=== PATIENT | male | born 1975 | race African-American/Black ===

== ENCOUNTER 2016-11-11 14:48 | Emergency (ER) | payer OTHER ==
[~2016-11-11] VITALS: Ht 175.3 cm; Wt 50.0 kg
[~2016-11-11 14:48] MED LIST: ASPI81 PO; CARV6.25 PO; DIGO0.25 PO; FURO1TAB93 PO; ISOS30 PO; MAGN400T PO; METO10TA PO; MIRTA15 PO; PROT40TA PO; QUET25 PO; RAMI5 PO; RIFA550 PO; RIVA20 PO
[2016-11-11 14:49] VITALS: BP 144/92; PULSE 69; RESP 20; TEMP 98.2; O2SAT 100
--- NOTE | 2016-11-11 19:49 | PD ---
HPI Chief Complaint: GI Complaint Time Seen by Provider: 19:49 Travel History International Travel<30 days: No Contact w/Intl Traveler<30days: No Traveled to known affect area: No History of Present Illness HPI 41-year-old male with a history of hypertension, hyperlipidemia, coronary artery disease, SVT presents to the emergency department for evaluation of nausea and vomiting for one day. Patient states he has had 7-8 episodes of nonbloody nonbilious emesis today since he woke up. States he has been unable to keep any fluids down due to vomiting. States that he is on one episode of nonbloody diarrhea. He states he has some soreness in his upper abdomen from vomiting but denies any abdominal pain. He denies fever, chills, chest pain, shortness of breath, cough or cold symptoms, constipation, dysuria. He denies any recent travel or sick contacts. Denies eating anything out of the ordinary. He admits to drinking 3 beers 4-5 times per week. Denies any drug use. Admits to smoking cigarettes. Denies any prior abdominal surgeries. No other complaints. PFSH Past Medical History Hx Anticoagulant Therapy: Yes Autoimmune Disease: No Blood Disorders: No Anxiety: Yes Depression: Yes Heart Rhythm Problems: Yes (SVT) Cancer: No Cardiac Catheterization: No Cardiovascular Problems: Yes (DE) High Cholesterol: No Chemotherapy: No Chest Pain: Yes Congestive Heart Failure: Yes Cerebrovascular Accident: No Diabetes: No Diminished Hearing: Yes Endocrine: No Gastrointestinal Disorders: Yes (ELEVATED LIVER ENZYMES) GERD: Yes Glaucoma: No Genitourinary: Yes (PHOEBE) Hepatitis: No Hiatal Hernia: No Hypertension: Yes Immune Disorder: No Implanted Vascular Access Dvce: No Musculoskeletal: Yes Neurologic: No Psychiatric: Yes (POLY SUBSTANCE ABUSE) Reproductive: No Respiratory: No Immunizations Current: No Myocardial Infarction: Yes (NSTEMI) Pneumonia: Yes Radiation Therapy: No Sickle Cell Disease: No Thyroid Disease: No Ulcer: Yes Past Surgical History Abdominal Surgery: Yes (EXPLORATORY LAP) AICD: No Appendectomy: No Arteriovenous Shunt: No Cholecystectomy: No Coronary Artery Bypass Graft: No Ear Surgery: No Endocrine Surgery: No Eye Surgery: No Gynecologic Surgery: No Hysterectomy: No Insulin Pump: No Joint Replacement: No Neurologic Surgery: No Oral Surgery: No Pacemaker: No Other Surgery: No Social History Alcohol Use: Yes (4 beers a day) Tobacco Use: Yes (0.5 PPD) Substance Use: Yes (cocaine abuse hx) Allergies-Medications (Allergen,Severity, Reaction): Coded Allergies: Iodine (Verified Allergy, Severe, 11/11/16) Seafood (Verified Allergy, Severe, 11/11/16) Reported Meds & Prescriptions Reported Meds & Active Scripts Active Reglan (Metoclopramide HCl) 10 Mg Tab 10 Mg PO Q8H PRN NAUSEA AND VOMITING Coreg 6.25 mg (Carvedilol) 6.25 Mg Tab 1 Tab PO BID 30 Days Xarelto 20 Mg Tab (Rivaroxaban) 20 Mg Tab 20 Mg PO DAILY 30 Days Xifaxan 550 Mg Tab (Rifaximin) 550 Mg Tab 550 Mg PO BID 30 Days Quetiapine Fumarate 25 mg (Quetiapine Fumarate) 25 Mg Tab 25 Mg PO HS 30 Days Mag-Ox 400 (Magnesium Oxide) 400 Mg Tab 400 Mg PO BID 30 Days Digoxin 0.25 mg (Digoxin) 0.25 Mg Tab 0.25 Mg PO DAILY 30 Days Furosemide 40 Mg Tab 40 Mg PO BID 30 Days Imdur 30 Mg (Isosorbide Mononitrate) 30 Mg Tabcr 30 Mg PO DAILY@07 30 Days Ramipril 5 Mg Cap 5 Mg PO DAILY Mirtazapine 15 Mg Tab 30 Mg PO HS Aspirin Low Strength (Aspirin) 81 Mg Chew 81 Mg PO DAILY Protonix (Pantoprazole Sodium) 40 Mg Tabdr 40 Mg PO DAILY Review of Systems Except as stated in HPI: all other systems reviewed are Neg Physical Exam Narrative GENERAL: Well-nourished and well-developed pleasant male patient in no acute distress. SKIN: Warm and dry. HEAD: Normocephalic and atraumatic. EYES: No injection, drainage, or hyphema noted. PERRLA. EOMI. ENT: No nasal drainage noted. Oropharynx is clear. NECK: Supple and the trachea is midline. CARDIOVASCULAR: Regular rate and rhythm. RESPIRATORY: Breath sounds are equal bilaterally with no accessory muscle use, wheezing, rhonchi, or crackles. GASTROINTESTINAL: Mild epigastric tenderness to palpation. Abdomen is soft and nondistended. Negative McBurney's point. Negative Montano's sign. No rebound tenderness or guarding. MUSCULOSKELETAL: No obvious deformities, swelling, cyanosis, or ecchymosis is present throughout the upper and lower extremities. Patient has full range of motion without any signs of neurovascular compromise. NEUROLOGICAL: Awake, alert, and oriented. Normal speech and gait. Cranial nerves are grossly intact. Data Data Last Documented VS Vital Signs Date Time Temp Pulse Resp B/P Pulse Ox O2 Delivery O2 Flow Rate FiO2 11/11/16 14:49 98.2 69 20 144/92 100 Room Air Orders Complete Blood Count With Diff (11/11/16 19:48) Comprehensive Metabolic Panel (11/11/16 19:48) Lipase (11/11/16 19:48) Ondansetron Odt (Zofran Odt) (11/11/16 20:00) Labs Laboratory Tests Test 11/11/16 20:10 White Blood Count 6.3 TH/MM3 Red Blood Count 4.42 MIL/MM3 Hemoglobin 13.2 GM/DL Hematocrit 38.7 % Mean Corpuscular Volume 87.5 FL Mean Corpuscular Hemoglobin 29.9 PG Mean Corpuscular Hemoglobin 34.2 % Concent Red Cell Distribution Width 12.4 % Platelet Count 183 TH/MM3 Mean Platelet Volume 8.8 FL Neutrophils (%) (Auto) 40.3 % Lymphocytes (%) (Auto) 48.5 % Monocytes (%) (Auto) 9.8 % Eosinophils (%) (Auto) 0.6 % Basophils (%) (Auto) 0.8 % Neutrophils # (Auto) 2.6 TH/MM3 Lymphocytes # (Auto) 3.1 TH/MM3 Monocytes # (Auto) 0.6 TH/MM3 Eosinophils # (Auto) 0.0 TH/MM3 Basophils # (Auto) 0.1 TH/MM3 CBC Comment DIFF FINAL Differential Comment MDM Medical Decision Making Medical Screen Exam Complete: Yes Emergency Medical Condition: Yes Differential Diagnosis Gastroenteritis versus gastritis versus PUD versus pancreatitis Narrative Course 41-year-old male presents to the emergency department for evaluation of nausea and vomiting for one day. Patient is afebrile, vital signs are stable. Abdominal examination is benign. Patient is administered Zofran 4 mg ODT. Initial laboratory and imaging studies have been ordered and the patient will be evaluated by another provider when a medical bed becomes available. The triage nurse is aware of the plan. The proposed plan of evaluation and treatment was discussed with the patient who verbalizes an understanding and agrees to proceed. Kathy Leigh Nov 11, 2016 19:49
[2016-11-11] MEDS ORDERED: ONDANSETRON ODT 4 MG TAB PO ONE (20:00)
[2016-11-11 20:50] LABS: AUTOMATED NEUTROPHIL # 2.6 TH/MM3 (1.8-7.7); BASOPHIL # 0.1 TH/MM3 (0-0.2); BASOPHIL % 0.8 % (0.0-2.0); EOSINOPHIL % 0.6 % (0.0-4.0); HEMATOCRIT 38.7 % (39.0-51.0); HEMO FLAGS DIFF FINAL; LYMPH % 48.5 % (9.0-44.0); LYMPHOCYTE # 3.1 TH/MM3 (1.0-4.8); MEAN CELL VOLUME 87.5 FL (80.0-100.0); MEAN CORPUSCULAR HEMOGLOBIN 29.9 PG (27.0-34.0); MEAN CORPUSCULAR HGB CONC 34.2 % (32.0-36.0); MONO % 9.8 % (0.0-8.0); NEUT % 40.3 % (16.0-70.0); PLATELET COUNT 183 TH/MM3 (150-450); RED BLOOD COUNT 4.42 MIL/MM3 (4.50-5.90); RED CELL DISTRIBUTION WIDTH 12.4 % (11.6-17.2); WHITE BLOOD COUNT 6.3 TH/MM3 (4.0-11.0)
[2016-11-11 21:08] LABS: ANION GAP 12 MEQ/L (5-15); AST (GOT) 59 U/L (15-37); BICARBONATE 28.8 MEQ/L (21.0-32.0); BLOOD UREA NITROGEN 8 MG/DL (7-18); CHLORIDE 98 MEQ/L (98-107); GLOMERULAR FILTRATION RATE 114 ML/MIN (>89); SODIUM (NA) 139 MEQ/L (136-145)
[2016-11-11 21:11] LABS: ALKALINE PHOSPHATASE 55 U/L (45-117); ALT (GPT) 28 U/L (12-78); TOTAL BILIRUBIN ADULT 1.8 MG/DL (0.2-1.0)
[2016-11-11 22:21] VITALS: BP 141/90; PULSE 67; RESP 18; O2SAT 99
[2016-11-11] MEDS ORDERED: ISOS30TA3 PO (22:26)
[2016-11-11] MEDS ORDERED: XARE20TA PO (22:26)
[2016-11-11] MEDS ORDERED: FURO40TA PO (22:26)
[2016-11-11] MEDS ORDERED: OMEP20TA PO (22:26)
[2016-11-11] MEDS ORDERED: MIRT1TAB44 PO (22:26)
[2016-11-11] MEDS ORDERED: POTA-243 PO (22:26)
[2016-11-11] MEDS ORDERED: QUET1TAB7 PO (22:26)
[2016-11-11] MEDS ORDERED: RAMI5CAP PO (22:26)
[2016-11-11] MEDS ORDERED: DIGO0.25 PO (22:26)
[2016-11-11] MEDS ORDERED: CARV12.52 PO (22:26)
[2016-11-11] MEDS ORDERED: PROM25TA5 PO (22:39)
--- NOTE | 2016-11-11 22:39 | PD ---
Physical Exam Narrative General: The patient is a well-developed well-nourished male in no acute distress. Head and Neck exam: Head is normocephalic atraumatic. Eyes: EOMI, pupils are equal round and reactive to light. Nose: Midline septum with pink mucous membranes Mouth: Dentition unremarkable. Moist mucus membranes. Posterior oropharynx is not erythematous. No tonsillar hypertrophy. Uvula midline. Airway patent. Neck: No palpable lymphadenopathy. No nuchal rigidity. No thyromegaly. Cardiovascular: Regular rate and rhythm without murmurs, gallops, or rubs. No pulse deficit to the extremities. Lungs: Clear to auscultation bilaterally. No wheezes, rhonchi, or rales. Abdomen: Soft, without tenderness to palpation in all 4 quadrants of the abdomen. No guarding, rebound, or rigidity. Normal bowel sounds are audible. No tenderness on palpation of McBurney's point. Negative Montano's sign. Extremities: No clubbing, cyanosis, or edema. 2+ pulses in all 4 extremities. No calf tenderness on palpation. Back: No spinous process tenderness to palpation. No costovertebral angle tenderness to palpation. Neurologic Exam: Grossly nonfocal. Skin Exam: No rash noted. Intact skin that is warm and dry. Data Data Last Documented VS Vital Signs Date Time Temp Pulse Resp B/P Pulse Ox O2 Delivery O2 Flow Rate FiO2 11/11/16 22:21 67 18 141/90 99 Room Air 11/11/16 14:49 98.2 Orders Complete Blood Count With Diff (11/11/16 19:48) Comprehensive Metabolic Panel (11/11/16 19:48) Lipase (11/11/16 19:48) Ondansetron Odt (Zofran Odt) (11/11/16 20:00) Oral Rehydration (11/11/16 22:19) Urinalysis - C+S If Indicated (11/11/16 22:21) Ondansetron Odt (Zofran Odt) (11/12/16 00:30) Labs Laboratory Tests Test 11/11/16 11/12/16 20:10 00:25 White Blood Count 6.3 TH/MM3 Red Blood Count 4.42 MIL/MM3 Hemoglobin 13.2 GM/DL Hematocrit 38.7 % Mean Corpuscular Volume 87.5 FL Mean Corpuscular Hemoglobin 29.9 PG Mean Corpuscular Hemoglobin 34.2 % Concent Red Cell Distribution Width 12.4 % Platelet Count 183 TH/MM3 Mean Platelet Volume 8.8 FL Neutrophils (%) (Auto) 40.3 % Lymphocytes (%) (Auto) 48.5 % Monocytes (%) (Auto) 9.8 % Eosinophils (%) (Auto) 0.6 % Basophils (%) (Auto) 0.8 % Neutrophils # (Auto) 2.6 TH/MM3 Lymphocytes # (Auto) 3.1 TH/MM3 Monocytes # (Auto) 0.6 TH/MM3 Eosinophils # (Auto) 0.0 TH/MM3 Basophils # (Auto) 0.1 TH/MM3 CBC Comment DIFF FINAL Differential Comment Sodium Level 139 MEQ/L Potassium Level 4.0 MEQ/L Chloride Level 98 MEQ/L Carbon Dioxide Level 28.8 MEQ/L Anion Gap 12 MEQ/L Blood Urea Nitrogen 8 MG/DL Creatinine 0.89 MG/DL Estimat Glomerular Filtration 114 ML/MIN Rate Random Glucose 80 MG/DL Calcium Level 8.7 MG/DL Total Bilirubin 1.8 MG/DL Aspartate Amino Transf 59 U/L (AST/SGOT) Alanine Aminotransferase 28 U/L (ALT/SGPT) Alkaline Phosphatase 55 U/L Total Protein 7.7 GM/DL Albumin 3.8 GM/DL Lipase 107 U/L Urine Color YELLOW Urine Turbidity CLEAR Urine pH 6.0 Urine Specific [place] 1.027 Urine Protein 30 mg/dL Urine Glucose (UA) NEG mg/dL Urine Ketones 40 mg/dL Urine Occult Blood NEG Urine Nitrite NEG Urine Bilirubin NEG Urine Urobilinogen 2.0 MG/DL Urine Leukocyte Esterase NEG Urine WBC 1 /hpf Urine Squamous Epithelial <1 /hpf Cells Urine Hyaline Casts 1 /lpf Urine Granular Casts 1 /lpf Urine Mucus FEW /lpf Microscopic Urinalysis Comment CULT NOT INDICATED MDM Medical Record Reviewed: Yes Supervised Visit with GAURANG: No Differential Diagnosis Viral versus bacterial gastroenteritis, versus electrolyte abnormality, versus dehydration, versus peptic ulcer disease, versus acid reflux, versus acute pancreatitis Narrative Course During the course of the patients emergency department visit, the patients history, examination, and differential diagnosis were reviewed with the patient. The patient had IV access obtained and blood work sent for analysis. The patient's case was checked out to me by Kathy, please see her complete history and physical. The patient reports a history to me of nausea, vomiting, and diarrhea that began today around 5 AM. He reports that he's had apparently 7-8 episodes of vomiting, one episode of loose stool. He denies having any blood in his stool or black or tarry stools. He denies having any mucus in his stool. He denies any recent antibiotic use. He denies having any known sick contacts. He denies any foreign travel. Since arriving in the emergency department laboratory studies were ordered. The patient was given Zofran 4 mg by mouth 1. The patient reports that the nausea has improved he has not had any further episodes of vomiting. The patient will be started on oral rehydration therapy. The patients laboratory studies were reviewed and remarkable for a CBC that shows a white count 6.3, hemoglobin 13.2, platelets 183 with 48.5 neutrophils, monocytes 9.8, suggestive of a viral illness, CMP is remarkable for a total bilirubin 1.8, AST 59, lipase 107. The patient does have a history of previously having elevated liver enzymes. Urinalysis shows 40 ketones otherwise no signs of infection. The patient is tolerating by mouth hydration The patient will be discharged home with an anti-emetic to be taken as needed for nausea. The patient was instructed regarding the importance of pushing fluids and getting plenty of rest. The patient was instructed to hydrate with an electrolyte rich solution such as Gatorade or Pedialyte. The patient is instructed to avoid fatty or spicy foods. The patient is resting comfortably and feels better, is alert and in no distress. The patients results and examination findings were discussed with the patient. The repeat examination is unremarkable and benign. The history, exam, diagnostic testing, and current condition do not suggest any significant pathology to warrant further testing, continued ED treatment, admission, or surgical evaluation at this point. The vital signs have been stable. The patient does not have uncontrollable pain, intractable vomiting, or other significant symptoms. The patient's condition is stable and appropriate for discharge. The patient will pursue further outpatient evaluation with a primary care physician or other designated or consulting physician as indicated in the discharge instructions. The patient expressed understanding and was agreeable with this plan. Diagnosis Primary Impression: Nausea, vomiting, and diarrhea Referrals: Primary Care Physician 3 days Patient Instructions: Acute Diarrhea (ED), Acute Nausea and Vomiting (ED), General Instructions Med/Other Pt SpecificInfo: Prescription(s) given Scripts Promethazine (Phenergan)25 Mg Tab25 Mg PO Q6H PRN (Nausea/Vomiting) #4 TAB Ref 0 Prov:Ifeoma Rondon MD 11/11/16 Disposition: 01 DISCHARGE HOME Condition: Stable Ifeoma Rondon MD Nov 11, 2016 22:39
[2016-11-12] MEDS ORDERED: ONDANSETRON ODT 4 MG TAB PO ONE (00:30)
[2016-11-12 00:46] LABS: BLOOD, URINE NEG (NEG); COMMENT (UR) CULT NOT INDICATED; CULTURE IF INDICATED CULT NOT INDICATED; GLUCOSE,URINE NEG (NEG); GRANULAR CAST, URINE 1 /lpf; HYALINE CAST, URINE 1 /lpf (RARE); KETONE, URINE 40 mg/dL (NEG); MUCUS URINE FEW /lpf (OCC); NITRITE,URINE NEG (NEG); SQUAMOUS EPITHELIAL CELL URINE <1 /hpf (0-5); URINE COLOR YELLOW (YELLW/STRAW)
== END 2016-11-12 01:06 | disposition home or self-care (01) ==
LOC: NEPC 14:48
DX: R11.2 Nausea with vomiting, unspecified (principal); R19.7 Diarrhea, unspecified; E78.5 Hyperlipidemia, unspecified; I10 Essential (primary) hypertension; F17.210 Nicotine dependence, cigarettes, uncomplicated; Z79.01 Long term (current) use of anticoagulants
CPT/HCPCS: 80053; 81001; 83690; 85025; 99284

== ENCOUNTER 2016-12-15 12:01 | Observation (INO) | payer OTHER ==
[~2016-12-15] VITALS: Ht 175.3 cm; Wt 45.7 kg
[~2016-12-15 12:01] MED LIST changes: -ASPI81 PO; +CARV12.52 PO; -CARV6.25 PO; -FURO1TAB93 PO; +FURO40TA PO; -ISOS30 PO; +ISOS30TA3 PO; -MAGN400T PO; -METO10TA PO; +MIRT1TAB44 PO; -MIRTA15 PO; +OMEP20TA PO; +POTA-243 PO; +PROM25TA5 PO; -PROT40TA PO; +QUET1TAB7 PO; -QUET25 PO; -RAMI5 PO; +RAMI5CAP PO; -RIFA550 PO; -RIVA20 PO; +XARE20TA PO
[2016-12-15 12:07] VITALS: BP 126/81; PULSE 81; RESP 15; TEMP 98.4; O2SAT 100
[2016-12-15] MEDS ORDERED: SODIUM CHLORIDE 0.9% FLUSH 5 ML FLUSH IVF PRN (12:15)
[2016-12-15] MEDS ORDERED: ASPIRIN 81 MG CHEW TAB PO ONE (12:15)
[2016-12-15 12:29] VITALS: BP_SYST 118; BP_SYST 120; BP_DIAS 82; BP_DIAS 85
--- NOTE | 2016-12-15 12:31 | PD ---
HPI Chief Complaint: Numbness/Tingling Time Seen by Provider: 12:06 Travel History International Travel<30 days: No Contact w/Intl Traveler<30days: No Traveled to known affect area: No History of Present Illness HPI Patient is a 41-year-old male with history of nonischemic cardiomyopathy and cocaine abuse who presents emergency Department with complaint of numbness and tingling. Patient called EMS stating that he felt numb and tingly throughout the body. Initially only complained of this in the left arm but now he complains of numbness and tingling to the bilateral arms and bilateral legs. Mild nausea but no vomiting. Patient denies any chest pain, shortness of breath. Patient states he feels generally weak and fatigued and had a similar numbness and tingling feeling when he "had my heart attack" last year. Per chart review patient was seen here in May with STEMI alert, but had a cardiac catheterization that was normal with absolutely clean coronaries. Diagnosed with nonischemic cardiomyopathy and recommended medical management. Patient admits that he was drinking heavily last night, none today. Denies any substance abuse. PFSH Past Medical History Hx Anticoagulant Therapy: Yes Autoimmune Disease: No Blood Disorders: No Anxiety: Yes Depression: Yes Heart Rhythm Problems: Yes (SVT) Cancer: No Cardiac Catheterization: No Cardiovascular Problems: Yes High Cholesterol: No Chemotherapy: No Chest Pain: Yes Congestive Heart Failure: Yes Cirrhosis: Yes Cerebrovascular Accident: No Diabetes: No Diminished Hearing: Yes (BILATERAL) Endocrine: No Gastrointestinal Disorders: Yes (ELEVATED LIVER ENZYMES) GERD: Yes Glaucoma: No Genitourinary: Yes (PHOEBE) Hepatitis: No Hiatal Hernia: No Hypertension: Yes Immune Disorder: No Implanted Vascular Access Dvce: No Musculoskeletal: Yes Neurologic: No Psychiatric: Yes (POLY SUBSTANCE ABUSE) Reproductive: No Respiratory: No Immunizations Current: No Myocardial Infarction: Yes Pneumonia: Yes Radiation Therapy: No Sickle Cell Disease: No Thyroid Disease: No Ulcer: Yes Past Surgical History Abdominal Surgery: Yes (EXPLORATORY LAP) AICD: No Appendectomy: No Arteriovenous Shunt: No Cholecystectomy: No Coronary Artery Bypass Graft: No Ear Surgery: No Endocrine Surgery: No Eye Surgery: No Gynecologic Surgery: No Hysterectomy: No Insulin Pump: No Joint Replacement: No Neurologic Surgery: No Oral Surgery: No Pacemaker: No Other Surgery: No Social History Alcohol Use: Yes Tobacco Use: Yes Substance Use: No Allergies-Medications (Allergen,Severity, Reaction): Coded Allergies: Iodine (Verified Allergy, Severe, 11/11/16) Seafood (Verified Allergy, Severe, 11/11/16) Reported Meds & Prescriptions Reported Meds & Active Scripts Active Reported Omeprazole 20 Mg Tab 20 Mg PO DAILY Mirtazapine ODT (Mirtazapine) 30 Mg Tab 30 Mg PO HS Xarelto (Rivaroxaban) 20 Mg Tab 20 Mg PO DAILY Furosemide 40 Mg Tab 40 Mg PO DAILY Ramipril 5 Mg Cap 5 Mg PO DAILY Quetiapine (Quetiapine Fumarate) 25 Mg Tab 25 Mg PO HS Isosorbide Mononitrate ER (Isosorbide Mononitrate) 30 Mg Tahir 30 Mg PO DAILY Klor-Con 10 (Potassium Chloride) 10 Meq Tab 20 Meq PO DAILY Digoxin 0.25 Mg Tab 0.25 Mg PO DAILY Carvedilol 12.5 Mg Tab 12.5 Mg PO BID Review of Systems Except as stated in HPI: all other systems reviewed are Neg Physical Exam Narrative GENERAL: Well-appearing male, thin in no acute distress SKIN: Warm and dry. HEAD: Normocephalic. EYES:No scleral icterus. No injection or drainage. ENT: No nasal bleeding or discharge. Mucous membranes pink and moist. NECK: Supple CARDIOVASCULAR: Regular rate and rhythm. No murmur appreciated. RESPIRATORY: No accessory muscle use. Clear to auscultation. Breath sounds equal bilaterally. GASTROINTESTINAL: Abdomen soft, non-tender, nondistended. Hepatic and splenic margins not palpable. MUSCULOSKELETAL: No obvious deformities. No edema. NEUROLOGICAL: Awake and alert. Motor grossly within normal limits. Normal speech. Distal sensation intact. PSYCHIATRIC: Anxious Data Data Last Documented VS Vital Signs Date Time Temp Pulse Resp B/P Pulse Ox O2 Delivery O2 Flow Rate FiO2 12/15/16 12:29 120/85 118/82 12/15/16 12:17 Room Air 12/15/16 12:07 98.4 81 15 100 Orders Electrocardiogram (12/15/16 12:07) Basic Metabolic Panel (Bmp) (12/15/16 12:07) Ckmb (Isoenzyme) Profile (12/15/16 12:07) Complete Blood Count With Diff (12/15/16 12:07) Magnesium (Mg) (12/15/16 12:07) Prothrombin Time / Inr (Pt) (12/15/16 12:07) Act Partial Throm Time (Ptt) (12/15/16 12:07) Troponin I (12/15/16 12:07) Chest, Single Ap (12/15/16 12:07) Ecg Monitoring (12/15/16 12:07) Bilateral Bp Monitoring (12/15/16 12:07) Iv Access Insert/Monitor (12/15/16 12:07) Oximetry (12/15/16 12:07) Aspirin Chew (Aspirin Chew) (12/15/16 12:15) Sodium Chloride 0.9% Flush (Ns Flush) (12/15/16 12:15) Drug Screen, Random Urine (12/15/16 12:07) Digoxin (12/15/16 12:15) Alcohol (Ethanol) (12/15/16 12:15) CKMB (12/15/16 12:15) CKMB% (12/15/16 12:15) Consult Cardiology (12/15/16 ) Metoprolol Tartrate (Lopressor) (12/15/16 13:45) Nitroglycerin 2% Oint (Nitroglycerin 2% (12/15/16 13:45) Labs Laboratory Tests Test 12/15/16 12/15/16 12:15 13:20 White Blood Count 4.6 TH/MM3 Red Blood Count 4.06 MIL/MM3 Hemoglobin 12.0 GM/DL Hematocrit 35.7 % Mean Corpuscular Volume 87.8 FL Mean Corpuscular Hemoglobin 29.6 PG Mean Corpuscular Hemoglobin 33.7 % Concent Red Cell Distribution Width 12.8 % Platelet Count 179 TH/MM3 Mean Platelet Volume 8.8 FL Neutrophils (%) (Auto) 47.9 % Lymphocytes (%) (Auto) 38.7 % Monocytes (%) (Auto) 11.9 % Eosinophils (%) (Auto) 0.8 % Basophils (%) (Auto) 0.7 % Neutrophils # (Auto) 2.2 TH/MM3 Lymphocytes # (Auto) 1.8 TH/MM3 Monocytes # (Auto) 0.5 TH/MM3 Eosinophils # (Auto) 0.0 TH/MM3 Basophils # (Auto) 0.0 TH/MM3 CBC Comment DIFF FINAL Differential Comment Prothrombin Time 11.2 SEC Prothromb Time International 1.0 RATIO Ratio Activated Partial 25.7 SEC Thromboplast Time Sodium Level 139 MEQ/L Potassium Level 4.2 MEQ/L Chloride Level 104 MEQ/L Carbon Dioxide Level 24.9 MEQ/L Anion Gap 10 MEQ/L Blood Urea Nitrogen 10 MG/DL Creatinine 0.90 MG/DL Estimat Glomerular Filtration 113 ML/MIN Rate Random Glucose 78 MG/DL Calcium Level 8.6 MG/DL Magnesium Level 1.5 MG/DL Total Creatine Kinase 1083 U/L Creatine Kinase MB 23.1 NG/ML Creatine Kinase MB % 2.1 % Troponin I 0.13 NG/ML Digoxin Level 0.1 NG/ML Ethyl Alcohol Level 8 MG/DL Urine Opiates Screen NEG Urine Barbiturates Screen NEG Urine Amphetamines Screen NEG Urine Benzodiazepines Screen NEG Urine Cocaine Screen NEG Urine Cannabinoids Screen POS MDM Medical Decision Making Medical Screen Exam Complete: Yes Emergency Medical Condition: Yes Medical Record Reviewed: Yes Differential Diagnosis 41-year-old male with history of nonischemic cardiomyopathy here with complaint of paresthesias to the bilateral arms, legs and generalized weakness since this morning. Differential includes electrolyte abnormality, anxiety, hyperventilation, arrhythmia, symptomatic anemia, ACS. Narrative Course Patient placed on monitor, IV established and blood obtained. Twelve-lead EKG shows sinus rhythm, LVH with ST elevation in V3, V4, V6 with T wave inversion in V5, V6, 1 and aVL. This is identical to patient's previous EKG on file. He is chest pain-free and symptom-free at this time other than paresthesias. No indications for STEMI alert. Patient given aspirin. Portable chest x-ray obtained that by my read shows hyperinflation, no acute abnormalities. CBC, BMP , magnesium, CK-MB, troponin, coags, blood alcohol level, digoxin level, urine drug screen obtained and notable for troponin 0.13, CPK 1083. Blood alcohol level 8. Digoxin undetectable. Urine drug screen positive for cannabinoids. I spoke with Dr. Ames of cardiology who agrees that given patient's recent cardiac catheterization there is nothing interventionally to offer and that patient should be optimized medically. Patient is pain-free. Was given beta kash, nitroglycerin, and will be matted to medicine for further management. Diagnosis Primary Impression: Nonischemic cardiomyopathy Additional Impressions: Elevated troponin Nausea Admitting Information Admitting Physician Requests: Admit Rosangela Carroll MD Dec 15, 2016 12:31
[2016-12-15 12:33] LABS: AUTOMATED NEUTROPHIL # 2.2 TH/MM3 (1.8-7.7); BASOPHIL % 0.7 % (0.0-2.0); EOSINOPHIL % 0.8 % (0.0-4.0); HEMATOCRIT 35.7 % (39.0-51.0); HEMO FLAGS DIFF FINAL; LYMPH % 38.7 % (9.0-44.0); LYMPHOCYTE # 1.8 TH/MM3 (1.0-4.8); MEAN CELL VOLUME 87.8 FL (80.0-100.0); MEAN CORPUSCULAR HEMOGLOBIN 29.6 PG (27.0-34.0); MEAN CORPUSCULAR HGB CONC 33.7 % (32.0-36.0); MONO % 11.9 % (0.0-8.0); NEUT % 47.9 % (16.0-70.0); PLATELET COUNT 179 TH/MM3 (150-450); RED BLOOD COUNT 4.06 MIL/MM3 (4.50-5.90); RED CELL DISTRIBUTION WIDTH 12.8 % (11.6-17.2); WHITE BLOOD COUNT 4.6 TH/MM3 (4.0-11.0)
[2016-12-15 12:43] LABS: APTT (PATIENT) 25.7 SEC (24.3-30.1); PROTHROMBIN TIME - PATIENT 11.2 SEC (9.8-11.6)
--- NOTE | 2016-12-15 12:43 | RADRPT ---
EXAM DATE/TIME: 12/15/2016 12:17 [facility] COMPARISON: CHEST SINGLE AP, January 28, 2016, 14:30. INDICATIONS : Shortness of breath and extremity numbness. MEDICAL HISTORY : None. SURGICAL HISTORY : None. ENCOUNTER: Initial ACUITY: 1 day PAIN SCORE: 0/10 LOCATION: Bilateral chest FINDINGS: A single view of the chest demonstrates the lungs to be symmetrically aerated without evidence of mas s, infiltrate or effusion. The cardiomediastinal contours are unremarkable. Osseous structures are intact. CONCLUSION: No acute disease. Satya Feldman MD on December 15, 2016 at 12:41 Board Certified Radiologist. This report was verified electronically.
[2016-12-15 12:55] LABS: BICARBONATE 24.9 MEQ/L (21.0-32.0); MAGNESIUM 1.5 MG/DL (1.5-2.5); POTASSIUM 4.2 MEQ/L (3.5-5.1)
[2016-12-15 13:11] LABS: DIGOXIN 0.1 NG/ML (0.8-2.0)
[2016-12-15 13:23] LABS: CKMB 23.1 NG/ML (0.5-3.6)
[2016-12-15 13:38] LABS: AMPHETAMINE, URINE NEG (NEG); BARBITURATES, URINE NEG (NEG); COCAINE, URINE NEG (NEG)
[2016-12-15] MEDS ORDERED: NITROGLYCERIN 2% OINT 1 GM PACKET TOPICAL ONE (13:45)
[2016-12-15] MEDS ORDERED: METOPROLOL TARTRATE 25 MG TAB PO ONE (13:45)
[2016-12-15] MEDS ORDERED: ENOXAPARIN SODIUM 40 MG/0.4 ML SYRINGE SQ SCH (14:30)
[2016-12-15] MEDS ORDERED: NALOXONE HCL 0.4 MG/ML AMP IV PRN (14:30)
[2016-12-15] MEDS ORDERED: SODIUM CHLORIDE 0.9% FLUSH 5 ML FLUSH FLUSH PRN (14:30)
[2016-12-15] MEDS ORDERED: ONDANSETRON HCL 4 MG/2 ML VIAL IVP PRN (14:30)
[2016-12-15 14:44] VITALS: BP 129/82; PULSE 71; TEMP 98.7; O2SAT 100
--- NOTE | 2016-12-15 14:44 | HHI.HP ---
[facility] Non[facility]Staff Admission Diagnosis nonischemic cardiomyopathy, elevated troponin Diagnoses: Chief Complaint: B/L foremarm numbness, B/L LE muscle spasm and B/L numbenss Travel History International Travel<30 Days: No Contact w/Intl Traveler <30 Da: No Traveled to Known Affected Are: No History of Present Illness 41 y/o M with hx of cocaine abuse, nonischemic cardiomyopathy who p/w B/L forearm numbness, hx of DVT B/L LE muscle spasm and B/L numbness. patient stated he was drinking 1 bottle of gin, 2-4 packs of beer yesterday then today had an upset stomach with some nausea occurring about 2 hours ago. he then stated he had B/L arm numbness, B/L leg numbness and B/L cramping for the past 2 hours. Denied any CP, palpitations or lightheadedness or dizziness. patient stated he drinks that much alcohol almost everyday but does not have any withdrawals from it. He stated he does not feel like he needs alcohol to prevents any tremors, N/V. Patient stated also when he had heart problems prior he stopped using cocaine. I also asked if he was using marijuana and he repeated said no although his urine drug screen is positive. Review of Systems Constitutional: DENIES: Diaphoretic episodes, Fatigue, Fever, Weight gain, Weight loss, Chills, Dizziness, Change in appetite, Night Sweats Endocrine: DENIES: Heat/cold intolerance, Polydipsia, Polyuria, Polyphagia Eyes: DENIES: Blurred vision, Diplopia, Eye inflammation, Eye pain, Vision loss , Photosensitivity, Double Vision Ears, nose, mouth, throat: DENIES: Tinnitus, Hearing loss, Vertigo, Nasal discharge, Oral lesions, Throat pain, Hoarseness, Ear Pain, Running Nose, Epistaxis, Sinus Pain, Toothache, Odynophagia Respiratory: DENIES: Apneas, Cough, Snoring, Wheezing, Hemoptysis, Sputum production, Shortness of breath Cardiovascular: DENIES: Chest pain, Palpitations, Syncope, Dyspnea on Exertion , PND, Lower Extremity Edema, Orthopnea, Claudication Gastrointestinal: COMPLAINS OF: Nausea, DENIES: Abdominal pain, Black stools, Bloody stools, Constipation, Diarrhea, Vomiting, Difficulty Swallowing, Anorexia Genitourinary: DENIES: Sexual dysfunction, Urinary frequency, Urinary incontinence, Urgency, Hematuria, Dysuria, Nocturia, Penile Discharge, Testicular Pain, Testicular Swelling Musculoskeletal: DENIES: Joint pain, Muscle aches, Stiffness, Joint Swelling, Back pain, Neck pain Integumentary: DENIES: Abnormal pigmentation, Nail changes, Pruritus, Rash Hematologic/lymphatic: DENIES: Bruising, Lymphadenopathy Neurologic: COMPLAINS OF: Paresthesias, DENIES: Abnormal gait, Headache, Localized weakness, Seizures, Speech Problems, Tremor, Poor Balance Psychiatric: DENIES: Anxiety, Confusion, Mood changes, Depression, Hallucinations, Agitation, Suicidal Ideation, Homicidal Ideation, Delusions + cramping and upset stomach Past Family Social History Past Medical History hx of nonischemic cardiomyopathy hx of NSTEMI due to cocaine use with clean catheterization. hx of hepatic encephalopathy due to sepsis hx of DVT Past Surgical History cardiac catheterization Reported Medications Omeprazole 20 Mg Tab 20 Mg PO DAILY Mirtazapine ODT (Mirtazapine) 30 Mg Tab 30 Mg PO HS Xarelto (Rivaroxaban) 20 Mg Tab 20 Mg PO DAILY Furosemide 40 Mg Tab 40 Mg PO DAILY Ramipril 5 Mg Cap 5 Mg PO DAILY Quetiapine (Quetiapine Fumarate) 25 Mg Tab 25 Mg PO HS Isosorbide Mononitrate ER (Isosorbide Mononitrate) 30 Mg Tahir 30 Mg PO DAILY Klor-Con 10 (Potassium Chloride) 10 Meq Tab 20 Meq PO DAILY Digoxin 0.25 Mg Tab 0.25 Mg PO DAILY Carvedilol 12.5 Mg Tab 12.5 Mg PO BID Allergies: Coded Allergies: Iodine (Verified Allergy, Severe, 11/11/16) Seafood (Verified Allergy, Severe, 11/11/16) Active Ordered Medications Current Medications Aspirin (Aspirin Chew) 324 mg ONCE ONCE PO Last administered on 12/15/16t 12: 37; Start 12/15/16 at 12:15; Stop 12/15/16 at 12:17; Status DC IV Flush (NS Flush) 2 ml UNSCH PRN IVF FLUSH AFTER USING IV ACCESS; Start 12/15 at 12:15 Metoprolol Tartrate (Lopressor) 12.5 mg ONCE ONCE PO ; Start 12/15/16 at 13:45 ; Stop 12/15/16 at 13:46; Status DC Nitroglycerin 0.5 inch 0.5 inch ONCE ONCE TOPICAL ; Start 12/15/16 at 13:45; Stop 12/15/16 at 13:46; Status DC Sodium Chloride (NS 1000 ml Inj) 1,000 ml @ 100 mls/hr Q10H IV ; Start at 15:00 IV Flush (NS Flush) 2 ml UNSCH PRN FLUSH FLUSH AFTER USING IV ACCESS; Start 09/21 at 14:30 IV Flush (NS Flush) 2 ml BID FLUSH ; Start 12/15/16 at 21:00 Acetaminophen (Tylenol) 650 mg Q4H PRN PO TEMP > 100.4; Start 12/15/16 at 15:00 Ondansetron HCl (Zofran Inj) 4 mg Q6H PRN IVP NAUSEA OR VOMITING; Start at 14:30 Enoxaparin Sodium (Lovenox Inj) 40 mg Q24H SQ ; Start 12/15/16 at 14:30; Stop at 14:35; Status DC Naloxone HCl (Narcan Inj) 0.4 mg UNSCH PRN IV SEE LABEL COMMENTS; Start at 14:30 Carvedilol (Coreg) 12.5 mg BID PO ; Start 12/15/16 at 21:00 Digoxin (Lanoxin) 0.25 mg DAILY PO ; Start 12/16/16 at 09:00 Isosorbide Mononitrate (Imdur) 30 mg DAILY PO ; Start 12/16/16 at 09:00 Mirtazapine (Remeron Soltab Odt) 30 mg HS PO ; Start 12/15/16 at 21:00 Pantoprazole Sodium (Protonix) 20 mg DAILY PO ; Start 12/16/16 at 09:00 Potassium Chloride (KCl) 20 meq DAILY PO ; Start 12/16/16 at 09:00 Quetiapine Fumarate (SEROquel) 25 mg HS PO ; Start 12/15/16 at 21:00 Ramipril (Altace) 5 mg DAILY PO ; Start 12/16/16 at 09:00 Rivaroxaban (Xarelto) 20 mg DAILY PO ; Start 12/16/16 at 09:00 Family History patient stated family members are healthy. denied any fx of heart disease, cancer, and DM. Social History patient lives with his sister in law. + 3-4 cig/day for 4-5 years. denied any illicit drug use but he is positive for marijuana. Physical Exam Vital Signs Vital Signs Date Time Temp Pulse Resp B/P Pulse Ox O2 Delivery O2 Flow Rate FiO2 12/15/16 12:29 120/85 118/82 12/15/16 12:17 Room Air 12/15/16 12:07 98.4 81 15 126/81 100 Physical Exam GENERAL: This is a well-nourished, well-developed patient, in no apparent distress. SKIN: No rashes, ecchymoses or lesions. Cool and dry. HEAD: Atraumatic. Normocephalic. No temporal or scalp tenderness. EYES: Pupils equal round and reactive. Extraocular motions intact. No scleral icterus. No injection or drainage. ENT: Nose without bleeding, purulent drainage or septal hematoma. Throat without erythema, tonsillar hypertrophy or exudate. Uvula midline. Airway patent. NECK: Trachea midline. No JVD or lymphadenopathy. Supple, nontender, no meningeal signs. CARDIOVASCULAR: Regular rate and rhythm without murmurs, gallops, or rubs. RESPIRATORY: Clear to auscultation. Breath sounds equal bilaterally. No wheezes , rales, or rhonchi. GASTROINTESTINAL: Abdomen soft, non-tender, nondistended. No hepato-splenomegaly , or palpable masses. No guarding. MUSCULOSKELETAL: Extremities without clubbing, cyanosis, or edema. No joint tenderness, effusion, or edema noted. No calf tenderness. Negative Homans sign bilaterally. NEUROLOGICAL: Awake and alert. Cranial nerves II through XII intact. Motor and sensory grossly within normal limits. Five out of 5 muscle strength in all muscle groups. Normal speech. Laboratory Laboratory Tests Test 12/15/16 12/15/16 12:15 13:20 White Blood Count 4.6 Red Blood Count 4.06 Hemoglobin 12.0 Hematocrit 35.7 Mean Corpuscular Volume 87.8 Mean Corpuscular Hemoglobin 29.6 Mean Corpuscular Hemoglobin 33.7 Concent Red Cell Distribution Width 12.8 Platelet Count 179 Mean Platelet Volume 8.8 Neutrophils (%) (Auto) 47.9 Lymphocytes (%) (Auto) 38.7 Monocytes (%) (Auto) 11.9 Eosinophils (%) (Auto) 0.8 Basophils (%) (Auto) 0.7 Neutrophils # (Auto) 2.2 Lymphocytes # (Auto) 1.8 Monocytes # (Auto) 0.5 Eosinophils # (Auto) 0.0 Basophils # (Auto) 0.0 CBC Comment DIFF FINAL Differential Comment Prothrombin Time 11.2 Prothromb Time International 1.0 Ratio Activated Partial 25.7 Thromboplast Time Sodium Level 139 Potassium Level 4.2 Chloride Level 104 Carbon Dioxide Level 24.9 Anion Gap 10 Blood Urea Nitrogen 10 Creatinine 0.90 Estimat Glomerular Filtration 113 Rate Random Glucose 78 Calcium Level 8.6 Magnesium Level 1.5 Total Creatine Kinase 1083 Creatine Kinase MB 23.1 Creatine Kinase MB % 2.1 Troponin I 0.13 Digoxin Level 0.1 Ethyl Alcohol Level 8 Urine Opiates Screen NEG Urine Barbiturates Screen NEG Urine Amphetamines Screen NEG Urine Benzodiazepines Screen NEG Urine Cocaine Screen NEG Urine Cannabinoids Screen POS Result Diagram: 12/15/16 1215 12/15/16 1215 Assessment and Plan Assessment and Plan 41 y/o M with B/L forearm numbness, B/L LE numbness and cramping B/L forearm numbness, B/L LE numbness and cramping -most likely due to dehydration no focal neurological deficits. -will give IVFs -continue to monitor. elevated troponin -may be due to polysubstance use along with has hx of cardiomyopathy since patient is drinking alcohol heavy with + urine drug screen with marijuana. -asymptomatic. -last cath in January 2015 negative and clean. -ED physician spoke to Dr. Ames who stated will not do anything. Program Director Substance Abuse was consulted by ED. -will monitor on telemetry and continue to trend troponin. nonischemic cardiomyoapthy/hx of DVT -asymptomatic -resume home medication. alcohol abuse -education given and harm of alcohol use. + marijuana in UA -patient denied use. -education given. tobacco use - education given. -at the moment since trending troponin to r/o a low suspicion for ACS will hold off giving nicotine patch. DVT prophylaxis -on xarelto. Code Status full Discussed Condition With patient Yuliya Rockwell MD Dec 15, 2016 14:44
[2016-12-15] MEDS ORDERED: ACETAMINOPHEN 325 MG TAB PO PRN (15:00)
[2016-12-15] MEDS: SODIUM CHLOR 0.9% 1000 ML INJ 1,000 ML IV SCH (15:07)
[2016-12-15 16:04] VITALS: BP 130/89; PULSE 72; RESP 21; O2SAT 100
--- NOTE | 2016-12-15 17:10 | MB ---
cc: RANDY AMES MD DATE OF CONSULTATION: 12/15/2016. REASON FOR CONSULTATION: Elevated troponin and abnormal EKG. HISTORY OF PRESENT ILLNESS: The patient is a pleasant 41-year-old gentleman with a history of a nonischemic cardiomyopathy with the last cardiac catheterization performed May of 2015 showing no coronary disease but an echocardiogram at that time did show a significantly reduced ejection fraction of about 20% to 25%. The patient presents with fairly nonspecific symptoms of bilateral arm and leg tingling and leg cramping. His EKG is chronically abnormal but cardiac enzymes were taken which were mildly elevated and thus I was consulted. The patient denies any cardiac symptoms such as chest pain, shortness of breath, lightheadedness or dizziness. PAST MEDICAL HISTORY: 1. Nonischemic cardiomyopathy as above. 2. Drug abuse. (The patient says he has been clean from cocaine for about 2 years but his tox screen was positive for marijuana and the patient does admit to alcohol and tobacco). 3. Abnormal EKG. LABORATORY DATA: Sodium 139, potassium 4.2, chloride 104, bicarb 24.9, BUN 10, creatinine 0.9. Troponin is minimally elevated at 0.13. CK and CK-MB are elevated but CK-MB percentage is normal. White count 4.6, hematocrit 35.7, platelets 179,000. EKGS: EKG shows sinus rhythm with anteroseptal infarct pattern age indeterminate IMAGING STUDIES: Chest x-ray shows no acute disease. IMPRESSION: Elevated cardiac enzymes. The patient has known severe cardiomyopathy and has a minor increase in his troponin of uncertain etiology. He has no cardiac symptoms so this does not appear to be acute coronary syndrome. Furthermore, he had a relatively recent cardiac catheterization showing no disease. He does not appear to be a defibrillator candidate given his drug use and general poor compliance. He is on good cardiomyopathy medications and also on Xarelto. I will need to research the reason for that medication. I will also need to see if he is following with an outpatient hand scraper and if so, transfer of care will be made at that time. Thank you again for the opportunity to participate in this patient's care. Randy Ames MD [facility] /1:57 PM /4:01 PM
[2016-12-15 19:25] VITALS: BP 129/75; PULSE 58; RESP 16; O2SAT 100
[2016-12-15 20:46] VITALS: PULSE 63
[2016-12-15] MEDS ORDERED: QUEtiapine FUMARATE 25 MG TAB PO SCH (21:00)
[2016-12-15] MEDS ORDERED: MIRTAZAPINE ODT 30 MG TAB PO SCH (21:00)
[2016-12-15] MEDS: SODIUM CHLORIDE 0.9% FLUSH 5 ML FLUSH FLUSH SCH (21:00)
[2016-12-15] MEDS: CARVEDILOL 12.5 MG TAB PO SCH (22:16)
[2016-12-16] VITALS: BP 103/60; PULSE 55; RESP 12; TEMP 97.5; O2SAT 99
[2016-12-16] MEDS: SODIUM CHLOR 0.9% 1000 ML INJ 1,000 ML IV SCH ×2 (01:00→05:34)
[2016-12-16 04:00] VITALS: BP 108/62; PULSE 57; RESP 12; TEMP 97.3; O2SAT 100
[2016-12-16 08:00] VITALS: PULSE 54
[2016-12-16 08:31] VITALS: BP 110/68; PULSE 51; RESP 18; TEMP 97.7; O2SAT 97
[2016-12-16] MEDS ORDERED: POTASSIUM CHLORIDE 20 MEQ CONTROLLED RELEASE TAB PO SCH (09:00)
[2016-12-16] MEDS ORDERED: RIVAROXABAN 20 MG TAB PO SCH (09:00)
[2016-12-16] MEDS: DIGOXIN 0.25 MG TAB PO SCH ×2 (09:00→10:58)
[2016-12-16] MEDS ORDERED: ISOSORBIDE MONONITRATE 30 MG TAB PO SCH (09:00)
[2016-12-16] MEDS ORDERED: PANTOPRAZOLE SOD 20 MG DELAYED RELEASE TAB PO SCH (09:00)
[2016-12-16] MEDS ORDERED: RAMIPRIL 5 MG CAP PO SCH (09:00)
[2016-12-16] MEDS: SODIUM CHLORIDE 0.9% FLUSH 5 ML FLUSH FLUSH SCH (09:00)
[2016-12-16] MEDS: CARVEDILOL 12.5 MG TAB PO SCH (09:18)
--- NOTE | 2016-12-16 10:11 | PD.CARD.PN ---
Subjective Subjective Remarks notes abdominal pain but then states it's just hunger, no cp/sob Objective Medications Administered Medications Medications (Trade) Dose Ordered Sig/Talib Route PRN Reason Start Time Stop Time Status Last Admin Dose Admin Sodium Chloride (NS 1000 ml Inj) 1,000 ml @ 100 mls/hr Q10H IV 12/15/16 15:00 12/16/16 05:34 Carvedilol (Coreg) 12.5 mg BID PO 12/15/16 21:00 12/16/16 09:18 Isosorbide Mononitrate (Imdur) 30 mg DAILY PO 12/16/16 09:00 12/16/16 09:17 Mirtazapine (Remeron Soltab Odt) 30 mg HS PO 12/15/16 21:00 12/15/16 22:16 Pantoprazole Sodium (Protonix) 20 mg DAILY PO 12/16/16 09:00 12/16/16 09:17 Potassium Chloride (KCl) 20 meq DAILY PO 12/16/16 09:00 12/16/16 09:17 Quetiapine Fumarate (SEROquel) 25 mg HS PO 12/15/16 21:00 12/15/16 22:16 Rivaroxaban (Xarelto) 20 mg DAILY PO 12/16/16 09:00 12/16/16 09:17 Vital Signs / I&O Vital Signs Date Time Temp Pulse Resp B/P Pulse Ox O2 Delivery O2 Flow Rate FiO2 12/16/16 08:31 97.7 51 18 110/68 97 12/16/16 08:00 54 12/16/16 04:00 97.3 57 12 108/62 100 12/16/16 04:00 Room Air 12/16/16 00:00 Room Air 12/16/16 00:00 97.5 55 12 103/60 99 12/15/16 20:46 63 12/15/16 19:25 58 16 129/75 100 Room Air 12/15/16 16:04 72 21 130/89 100 Room Air 12/15/16 14:44 98.7 71 129/82 100 Room Air 12/15/16 12:29 120/85 118/82 12/15/16 12:17 Room Air 12/15/16 12:07 98.4 81 15 126/81 100 I/O 3/09/2112/15/16 12/15/16 12/16/16 12/16/16 12/16/16 07:00 15:00 23:00 07:00 15:00 23:00 Intake Total 636 ml 789 ml Output Total 250 ml 300 ml Balance 386 ml 489 ml Intake Oral 360 ml IV Total 276 ml 789 ml Output Urine Total 250 ml 300 ml Stool Total 0 ml Physical Exam GENERAL: This is a well-nourished, well-developed patient, in no apparent distress. CARDIOVASCULAR: Regular rate and rhythm without murmurs, gallops, or rubs. RESPIRATORY: Clear to auscultation. Breath sounds equal bilaterally. No wheezes , rales, or rhonchi. GASTROINTESTINAL: Abdomen soft, non-tender, nondistended. Normal active bowel sounds MUSCULOSKELETAL: Extremities without clubbing, cyanosis, or edema. NEURO: Alert & Oriented x4 to person, place, time, situation. Moves all ext x4 Laboratory Laboratory Tests Test 12/15/16 12/15/16 12/15/16 12/16/16 12:15 13:20 19:20 00:58 White Blood Count 4.6 TH/MM3 Red Blood Count 4.06 MIL/MM3 Hemoglobin 12.0 GM/DL Hematocrit 35.7 % Mean Corpuscular Volume 87.8 FL Mean Corpuscular Hemoglobin 29.6 PG Mean Corpuscular Hemoglobin 33.7 % Concent Red Cell Distribution Width 12.8 % Platelet Count 179 TH/MM3 Mean Platelet Volume 8.8 FL Neutrophils (%) (Auto) 47.9 % Lymphocytes (%) (Auto) 38.7 % Monocytes (%) (Auto) 11.9 % Eosinophils (%) (Auto) 0.8 % Basophils (%) (Auto) 0.7 % Neutrophils # (Auto) 2.2 TH/MM3 Lymphocytes # (Auto) 1.8 TH/MM3 Monocytes # (Auto) 0.5 TH/MM3 Eosinophils # (Auto) 0.0 TH/MM3 Basophils # (Auto) 0.0 TH/MM3 CBC Comment DIFF FINAL Differential Comment Prothrombin Time 11.2 SEC Prothromb Time International 1.0 RATIO Ratio Activated Partial 25.7 SEC Thromboplast Time Sodium Level 139 MEQ/L Potassium Level 4.2 MEQ/L Chloride Level 104 MEQ/L Carbon Dioxide Level 24.9 MEQ/L Anion Gap 10 MEQ/L Blood Urea Nitrogen 10 MG/DL Creatinine 0.90 MG/DL Estimat Glomerular Filtration 113 ML/MIN Rate Random Glucose 78 MG/DL Calcium Level 8.6 MG/DL Magnesium Level 1.5 MG/DL Total Creatine Kinase 1083 U/L Creatine Kinase MB 23.1 NG/ML Creatine Kinase MB % 2.1 % Troponin I 0.13 NG/ML 0.13 NG/ML 0.14 NG/ML Digoxin Level 0.1 NG/ML Ethyl Alcohol Level 8 MG/DL Urine Opiates Screen NEG Urine Barbiturates Screen NEG Urine Amphetamines Screen NEG Urine Benzodiazepines Screen NEG Urine Cocaine Screen NEG Urine Cannabinoids Screen POS Assessment and Plan Problem List: (1) Nonischemic cardiomyopathy Assessment and Plan: hx of drug abuse and non-compliance. Echo pending. I would be willing to see him in office and try to ensure his medications are optimized and he is compliant and, if so, could offer ICD at that point in time , but do not feel comfortable having hardware installed until it's clear he will be compliant He is on sim/bb (2) Elevated troponin Assessment and Plan: no CAD by recent cath, non-specific. Assessment and Plan He is on xarelto and the patient doesn't know why. I do see chart hx of DVT but that was 2014 so not sure continued use is required. Randy Ames MD Dec 16, 2016 10:11
--- NOTE | 2016-12-16 11:59 | EC ---
Study Study Date:12/16/2016 STUDY CONCLUSIONS SUMMARY - Left ventricle: The cavity size was normal. Wall thickness was normal. Systolic function was severely reduced. The estimated ejection fraction was in the range of 20% to 25%. Diffuse hypokinesis. - Mitral valve: Mild to moderate regurgitation. - Tricuspid valve: Mild-moderate regurgitation. - Pulmonary arteries: PA peak pressure: 38mm Hg (S). If LV function is below 40, please consider prescribing an ACEI or ARB or document rationale for non-use. PROCEDURE DATA STUDY STATUS: Elective. Procedure: Transthoracic echocardiography. Image quality was good. Scanning was performed from the parasternal, apical, and subcostal acoustic windows. Study completion: The patient tolerated the procedure well. Transthoracic echocardiography. M-mode, complete 2D, complete spectral Doppler, and color Doppler. Patient status: Inpatient. CARDIAC ANATOMY LEFT VENTRICLE: The cavity size was normal. Wall thickness was normal. Systolic function was severely reduced. The estimated ejection fraction was in the range of 20% to 25%. Diffuse hypokinesis. AORTIC VALVE: Trileaflet; normal thickness leaflets. Doppler: Transvalvular velocity was within the normal range. There was no stenosis. No regurgitation. AORTA: Aortic root: The aortic root was normal in size. MITRAL VALVE: Structurally normal valve. Doppler: Transvalvular velocity was within the normal range. There was no evidence for stenosis. Mild to moderate regurgitation. LEFT ATRIUM: The atrium was normal in size. RIGHT VENTRICLE: The cavity size was normal. Wall thickness was normal. PULMONIC VALVE: Doppler: Transvalvular velocity was within the normal range. There was no evidence for stenosis. No regurgitation. TRICUSPID VALVE: Structurally normal valve. Doppler: Transvalvular velocity was within the normal range. Mild-moderate regurgitation. PULMONARY ARTERY: The main pulmonary artery was normal-sized. Systolic pressure was within the normal range. RIGHT ATRIUM: The atrium was normal in size. PERICARDIUM: There was no pericardial effusion. SYSTEMIC VEINS: Inferior vena cava: The vessel was normal in size. BASIC MEASUREMENTS ADULT Normal Left ventricle LV internal dimension, ED, chordal level, *41.8 mm 43-52 PLAX LV internal dimension, ES, chordal level, *38.4 mm 23-38 PLAX Fractional shortening, chordal level, PLAX *8 % >29 LV posterior wall thickness, ED 11.8 mm IVS/LVPW ratio, ED 1.05 <1.3 Ventricular septum Septal thickness, ED 12.4 mm Aortic valve Leaflet separation 23 mm 15-26 Right ventricle RV internal dimension, ED, PLAX 19.2 mm 19-38 BASIC MEASUREMENTS ADULT Normal Aortic valve Leaflet separation 23 mm 15-26 Aorta Root diameter, ED 31 mm 20-37 Left atrium Anterior-posterior dimension, ES 29 mm 19-40 LA/aortic root ratio 0.94 DOPPLER MEASUREMENTS ADULT Normal Main pulmonary artery Pressure, S *38 mm Hg =30 Tricuspid valve Regurgitant peak velocity 265 cm/s Peak RV-RA gradient, S 28 mm Hg Maximal regurgitant velocity 265 cm/s Systemic veins Estimated CVP 10 mm Hg Right ventricle RV pressure, S *38 mm Hg <30 LEGEND: Mean values are shown as u=mean value. Asterisk (*) swanson values outside specified normal range. Prepared and signed by Emmett Galdamez [id number]
[2016-12-16 12:20] VITALS: BP 111/70; PULSE 74; RESP 18; TEMP 98; O2SAT 98
--- NOTE | 2016-12-16 12:32 | RADRPT ---
EXAM DATE/TIME: 12/16/2016 10:39 [facility] COMPARISON: US LEG BILATERAL VENOUS DOPPLER, December 23, 2014, 23:05. INDICATIONS : Bilateral leg swelling. MEDICAL HISTORY : Myocardial infarction. Congestive heart failure. Claudication. Chest pain. SVT. Pneumoina. GERD. PHOEBE. Chronic back pain. Paresthesia. Ulcer. Depression. Anxiety. Substance use. Anticoagulant therapy. SURGICAL HISTORY : Abdominal exploratory lap. ENCOUNTER: Subsequent ACUITY: 1 day PAIN SCORE: 0/10 LOCATION: Bilateral legs. TECHNIQUE: Venous ultrasound of the left and right leg was performed from the inguinal ligament to the proximal calf. Real-time, color Doppler and spectral tracing, compression and augmentation techniques were us ed. FINDINGS: RIGHT LEG: There is normal compressibility of the deep venous system from the inguinal region to the proximal ca lf. No echogenic clot is seen in the lumen of the common femoral, femoral, popliteal, and posterior tibial veins. There is a normal response of the venous system to proximal and distal augmentation an d respiration. LEFT LEG: There is normal compressibility of the deep venous system from the inguinal region to the proximal ca lf. No echogenic clot is seen in the lumen of the common femoral, femoral, popliteal, and posterior tibial veins. There is a normal response of the venous system to proximal and distal augmentation an d respiration. CONCLUSION: No evidence of DVT. Celso Russell MD on December 16, 2016 at 12:30 Board Certified Radiologist. This report was verified electronically.
--- NOTE | 2016-12-16 14:42 | HHI.DCPOC ---
Discharge Care Plan Diagnosis: (1) Elevated troponin (2) Nonischemic cardiomyopathy Goals to Promote Your Health * To prevent worsening of your condition and complications * To maintain your health at the optimal level Directions to Meet Your Goals Take your medications as prescribed Follow your dietary instruction Follow activity as directed Keep your appointments as scheduled Take your immunizations and boosters as scheduled If your symptoms worsen call your PCP, if no PCP go to Urgent Care Center or Emergency Room Smoking is Dangerous to Your Health. Avoid second hand smoke Call the 24-hour hour crisis hotline for domestic abuse at Yuliya Rockwell MD Dec 16, 2016 14:42
--- NOTE | 2016-12-16 15:22 | EKG ---
Date Performed: 12/15/2016 Time Performed: 12:09:24 PTAGE: 41 years EKG: Sinus rhythm POSSIBLE LEFT ATRIAL ENLARGEMENT LEFT ANTERIOR FASCICULAR BLOCK LEFT VENTRICULAR HYPERTROPHY AND ST- T CHANGE ANTEROSEPTAL MYOCARDIAL INFARCTION Compared to the PREVIOUS TRACING there has been some variation in the T wave changes and the lateral ST elevation is slightly more pronounced. This is nonspecific in the setting of the LVH but acute myocar dial infarction cannot be excluded. Clinical correlation will be important. PREVIOUS TRACIN 016 04.05 DOCTOR: Stacey Rubin Interpretating Date/Time 12/16/2016 15:21:34
[2016-12-16 16:03] VITALS: BP 100/61; PULSE 70; RESP 17; TEMP 98.4; O2SAT 100
--- NOTE | 2016-12-16 17:01 | HHI.DS ---
Discharge Summary Admission Date Dec 15, 2016 at 14:12 Discharge Date: Dec 16, 2016 Admitting Diagnosis nonischemic cardiomyopathy, elevated troponin (1) Elevated troponin ICD Code: R74.8 Diagnosis: Principal (2) Dehydration ICD Code: E86.0 Diagnosis: Principal (3) Nonischemic cardiomyopathy ICD Code: I42.8 Diagnosis: Secondary Procedures ECHO Brief History - From Admission 41 y/o M with hx of cocaine abuse, nonischemic cardiomyopathy who p/w B/L forearm numbness, hx of DVT B/L LE muscle spasm and B/L numbness. patient stated he was drinking 1 bottle of gin, 2-4 packs of beer yesterday then today had an upset stomach with some nausea occurring about 2 hours ago. he then stated he had B/L arm numbness, B/L leg numbness and B/L cramping for the past 2 hours. Denied any CP, palpitations or lightheadedness or dizziness. patient stated he drinks that much alcohol almost everyday but does not have any withdrawals from it. He stated he does not feel like he needs alcohol to prevents any tremors, N/V. Patient stated also when he had heart problems prior he stopped using cocaine. I also asked if he was using marijuana and he repeated said no although his urine drug screen is positive. CBC/BMP: 12/15/16 1215 12/15/16 1215 Significant Findings Laboratory Tests Test 12/15/16 12/15/16 12/15/16 12/16/16 12:15 13:20 19:20 00:58 Red Blood Count 4.06 MIL/MM3 (4.50-5.90) Hemoglobin 12.0 GM/DL (13.0-17.0) Hematocrit 35.7 % (39.0-51.0) Monocytes (%) (Auto) 11.9 % (0.0-8.0) Total Creatine Kinase 1083 U/L (39-308) Creatine Kinase MB 23.1 NG/ML (0.5-3.6) Troponin I 0.13 NG/ML 0.13 NG/ML 0.14 NG/ML (0.02-0.05) (0.02-0.05) (0.02-0.05) Digoxin Level 0.1 NG/ML (0.8-2.0) Ethyl Alcohol Level 8 MG/DL (0-5) Urine Cannabinoids Screen POS (NEG) PE at Discharge GENERAL: in NAD CARDIOVASCULAR: Regular rate and rhythm without murmurs, gallops, or rubs. RESPIRATORY: Breath sounds equal bilaterally. No accessory muscle use. GASTROINTESTINAL: Abdomen soft, non-tender, nondistended. MUSCULOSKELETAL: No cyanosis, or edema. BACK: Nontender without obvious deformity. No CVA tenderness. Pt update on day of discharge patient had no complaints. He stated numbness and cramping resolved. denied any CP, N/V. when I asked about Xarelto he stated he PCP is prescribing it to him. Hospital Course 41 y/o M with B/L forearm numbness, B/L LE numbness and cramping B/L forearm numbness, B/L LE numbness and cramping -most likely due to dehydration no focal neurological deficits. -given IVFs and it resolved. elevated troponin -may be due to polysubstance use along with has hx of cardiomyopathy since patient is drinking alcohol heavy with + urine drug screen with marijuana. -asymptomatic and troponin was stable. -last cath in January 2015 negative and clean. -Dr. Ames consulted and stated do not need cath since recent one was negative. ECHo was done showed EF of 20-25 %. Due to patient being noncomplaint not a good candidate for ICD. patient to f/u with Dr. Ames as outpatient. nonischemic cardiomyoapthy/hx of DVT -asymptomatic -home medication was continued. alcohol abuse -education given and harm of alcohol use. + marijuana in UA -patient denied use. -education given. tobacco use - education given. -at the moment since trending troponin to r/o a low suspicion for ACS will hold off giving nicotine patch. hx of DVT. -patient was on xarelto which was found on medication reconciliation but when Dr. Woodward asked he denied this. When I asked again he said he was on medication with his PCP put him on this. Patient has been on this for more than a year. -I repeated the Doppler and no DVT. no hx of being hypercoagulable so will d/c xarelto. Pt Condition on Discharge: Good Discharge Disposition: Discharge Home Discharge Time: <= 30 minutes Discharge Instructions DIET: Follow Instructions for: Heart Healthy Diet Activities you can perform: Regular-No Restrictions Follow up Referrals: Cardiology - 1 Week with Randy Ames MD PCP Follow-up - 1 Week Continued Medications: Carvedilol (Carvedilol) 12.5 Mg Tab 12.5 MG PO BID #60 Ref 0 TAB Digoxin (Digoxin) 0.25 Mg Tab 0.25 MG PO DAILY Regulate Heart Beat #30 Ref 0 TAB Furosemide (Furosemide) 40 Mg Tab 40 MG PO DAILY #30 Ref 0 TAB Isosorbide Mononitrate ER (Isosorbide Mononitrate ER) 30 Mg Tahir 30 MG PO DAILY Prevent Chest Pain #30 Ref 0 TAB Mirtazapine ODT (Mirtazapine ODT) 30 Mg Tab 30 MG PO HS Depression Control #30 Ref 0 TAB Omeprazole (Omeprazole) 20 Mg Tab 20 MG PO DAILY #30 Ref 0 TAB Potassium Chloride ER (Klor-Con 10) 10 Meq Tab 20 MEQ PO DAILY Electrolyte Replacement #30 Ref 0 TAB Quetiapine (Quetiapine) 25 Mg Tab 25 MG PO HS #30 Ref 0 TAB Ramipril (Ramipril) 5 Mg Cap 5 MG PO DAILY #30 Ref 0 CAP Discontinued Medications: Rivaroxaban (Xarelto) 20 Mg Tab 20 MG PO DAILY Blood Clot Prevention Ref 0 TAB Yuliya Rockwell MD Dec 16, 2016 17:00
== END 2016-12-16 18:10 | disposition home or self-care (01) ==
LOC: NEPE 12:01 → NEDA 14:12 → INTOOBSV 14:12 → N04B 20:26 → UNDODISIN 12-16 18:10
PROVIDERS: ADMIT Family Medicine; ATTEND Family Medicine
DX: I42.9 Cardiomyopathy, unspecified (principal); E86.0 Dehydration; R74.8 Abnormal levels of other serum enzymes; I11.0 Hypertensive heart disease with heart failure; I50.9 Heart failure, unspecified; I25.2 Old myocardial infarction; K21.9 Gastro-esophageal reflux disease without esophagitis; F41.9 Anxiety disorder, unspecified; F32.9 Major depressive disorder, single episode, unspecified; H91.93 Unspecified hearing loss, bilateral; F17.210 Nicotine dependence, cigarettes, uncomplicated; F10.10 Alcohol abuse, uncomplicated; Z87.01 Personal history of pneumonia (recurrent); Z91.041 Radiographic dye allergy status; Z91.013 Allergy to seafood; Z86.718 Personal history of other venous thrombosis and embolism; Z79.82 Long term (current) use of aspirin
CPT/HCPCS: 71010; 80048; 80162; 80307; 82550; 82552; 83735; 84484; 85025; 85610; 85730; 93005; 93306; 93970; 99285; G0378; J7030

== ENCOUNTER 2016-12-30 12:12 | Emergency (ER) | payer OTHER ==
[~2016-12-30] VITALS: Ht 175.3 cm; Wt 50.0 kg
[~2016-12-30 12:12] MED LIST changes: -PROM25TA5 PO; -XARE20TA PO
[2016-12-30 12:18] VITALS: BP 121/79; PULSE 81; RESP 17; TEMP 97.8; O2SAT 93; O2SAT 97
[2016-12-30] MEDS ORDERED: ONDANSETRON HCL 4 MG/2 ML VIAL IV ONE (13:15)
[2016-12-30] MEDS ORDERED: SODIUM CHLORIDE 0.9% FLUSH 10 ML FLUSH IVF PRN (13:15)
[2016-12-30] MEDS ORDERED: SODIUM CHLORID 0.9% 500 ML INJ 500 ML IV ONE (13:15)
[2016-12-30 13:16] VITALS: BP_SYST 128; BP_SYST 129; BP_DIAS 93; BP_DIAS 94; PULSE 74; RESP 17; O2SAT 100
[2016-12-30 13:22] VITALS: RESP 17; O2SAT 100
--- NOTE | 2016-12-30 13:23 | PD ---
HPI Chief Complaint: Chest Pain Time Seen by Provider: 13:03 Travel History International Travel<30 days: No Contact w/Intl Traveler<30days: No Traveled to known affect area: No History of Present Illness HPI This is a 41-year-old male who has a history of cocaine and alcohol abuse who presents to the emergency department reporting that for 1 day he feels nauseous has thrown up several times this morning and feels pins and needles in his arms and legs. He says he felt very similar little over a week ago when he presented to the emergency department. He denies any chest pain or shortness of breath. He did take all of his medications this morning. He does acknowledge drinking a bottle of gin yesterday. He has a history of nonischemic cardiomyopathy and had a catheter with widely patent coronaries in May 2015. He was admitted to the hospital one week ago and was seen by cardiology. He had an echo at that time demonstrated an EF of 20-25%. PFSH Past Medical History Hx Anticoagulant Therapy: Yes (xarelto) Autoimmune Disease: No Blood Disorders: No Anxiety: Yes Depression: Yes Heart Rhythm Problems: Yes (SVT) Cancer: No Cardiac Catheterization: No Cardiovascular Problems: Yes ([place]) High Cholesterol: No Chemotherapy: No Chest Pain: Yes Congestive Heart Failure: Yes Cirrhosis: Yes Cerebrovascular Accident: No Diabetes: No Diminished Hearing: Yes (BILATERAL) Endocrine: No Gastrointestinal Disorders: Yes (ELEVATED LIVER ENZYMES) GERD: Yes Glaucoma: No Genitourinary: Yes Hepatitis: No Hiatal Hernia: No Hypertension: Yes Immune Disorder: No Implanted Vascular Access Dvce: No Musculoskeletal: Yes Neurologic: No Psychiatric: Yes Reproductive: No Respiratory: No Immunizations Current: No Myocardial Infarction: Yes Pneumonia: Yes Radiation Therapy: No Sickle Cell Disease: No Thyroid Disease: No Ulcer: Yes Past Surgical History Abdominal Surgery: Yes (EXPLORATORY LAP) AICD: No Appendectomy: No Arteriovenous Shunt: No Cholecystectomy: No Coronary Artery Bypass Graft: No Ear Surgery: No Endocrine Surgery: No Eye Surgery: No Gynecologic Surgery: No Hysterectomy: No Insulin Pump: No Joint Replacement: No Neurologic Surgery: No Oral Surgery: Yes (TEETH EXTRACTIONS) Pacemaker: No Other Surgery: No Social History Alcohol Use: Yes Tobacco Use: Yes Substance Use: Yes (MARIJUANA) Allergies-Medications (Allergen,Severity, Reaction): Coded Allergies: Iodine (Verified Allergy, Severe, itching, 12/30/16) Seafood (Verified Allergy, Severe, itching, 12/30/16) Reported Meds & Prescriptions Reported Meds & Active Scripts Active Reported Omeprazole 20 Mg Tab 20 Mg PO DAILY Mirtazapine ODT (Mirtazapine) 30 Mg Tab 30 Mg PO HS Furosemide 40 Mg Tab 40 Mg PO DAILY Ramipril 5 Mg Cap 5 Mg PO DAILY Quetiapine (Quetiapine Fumarate) 25 Mg Tab 25 Mg PO HS Isosorbide Mononitrate ER (Isosorbide Mononitrate) 30 Mg Tahir 30 Mg PO DAILY Klor-Con 10 (Potassium Chloride) 10 Meq Tab 20 Meq PO DAILY Digoxin 0.25 Mg Tab 0.25 Mg PO DAILY Carvedilol 12.5 Mg Tab 12.5 Mg PO BID Review of Systems Except as stated in HPI: all other systems reviewed are Neg Physical Exam Narrative GENERAL:Well appearing, no acute distress SKIN: Warm and dry. HEAD: Atraumatic. Normocephalic. EYES: Pupils equal and round. No injection or drainage. ENT: Moist mucous membranes NECK: Trachea midline. CARDIOVASCULAR: Regular rate and rhythm. No murmur appreciated. RESPIRATORY: Clear to auscultation. Breath sounds equal bilaterally. GASTROINTESTINAL: Abdomen soft, non-tender, nondistended. MUSCULOSKELETAL: No obvious deformities. NEUROLOGICAL: Awake and alert. No obvious cranial nerve deficits. Moving all extremities. PSYCHIATRIC: Appropriate mood and affect; insight and judgment normal. Data Data Last Documented VS Vital Signs Date Time Temp Pulse Resp B/P Pulse Ox O2 Delivery O2 Flow Rate FiO2 12/30/16 13:22 100 Room Air 12/30/16 13:22 17 12/30/16 13:20 67 12/30/16 13:16 128/94 129/93 12/30/16 12:18 97.8 Orders Electrocardiogram (12/30/16 ) Complete Blood Count With Diff (12/30/16 13:10) Comprehensive Metabolic Panel (12/30/16 13:10) Magnesium (Mg) (12/30/16 13:10) Troponin I (12/30/16 13:10) Ecg Monitoring (12/30/16 13:10) Bilateral Bp Monitoring (12/30/16 13:10) Iv Access Insert/Monitor (12/30/16 13:10) Oximetry (12/30/16 13:10) Oxygen Administration (12/30/16 13:10) Sodium Chloride 0.9% Flush (Ns Flush) (12/30/16 13:15) Ondansetron Inj (Zofran Inj) (12/30/16 13:15) Sodium Chlorid 0.9% 500 Ml Inj (Ns 500 M (12/30/16 13:15) Creatine Kinase (Cpk) (12/30/16 13:10) CKMB (12/30/16 13:25) CKMB% (12/30/16 13:25) Labs Laboratory Tests Test 12/30/16 13:25 White Blood Count 4.6 TH/MM3 Red Blood Count 4.26 MIL/MM3 Hemoglobin 12.4 GM/DL Hematocrit 37.3 % Mean Corpuscular Volume 87.5 FL Mean Corpuscular Hemoglobin 29.1 PG Mean Corpuscular Hemoglobin 33.3 % Concent Red Cell Distribution Width 12.9 % Platelet Count 160 TH/MM3 Mean Platelet Volume 9.2 FL Neutrophils (%) (Auto) 47.5 % Lymphocytes (%) (Auto) 40.7 % Monocytes (%) (Auto) 9.7 % Eosinophils (%) (Auto) 1.2 % Basophils (%) (Auto) 0.9 % Neutrophils # (Auto) 2.2 TH/MM3 Lymphocytes # (Auto) 1.9 TH/MM3 Monocytes # (Auto) 0.5 TH/MM3 Eosinophils # (Auto) 0.1 TH/MM3 Basophils # (Auto) 0.0 TH/MM3 CBC Comment DIFF FINAL Differential Comment Sodium Level 141 MEQ/L Potassium Level 4.2 MEQ/L Chloride Level 107 MEQ/L Carbon Dioxide Level 21.8 MEQ/L Anion Gap 12 MEQ/L Blood Urea Nitrogen 8 MG/DL Creatinine 0.88 MG/DL Estimat Glomerular Filtration 116 ML/MIN Rate Random Glucose 81 MG/DL Calcium Level 8.8 MG/DL Magnesium Level 1.4 MG/DL Total Bilirubin 1.5 MG/DL Aspartate Amino Transf 89 U/L (AST/SGOT) Alanine Aminotransferase 39 U/L (ALT/SGPT) Alkaline Phosphatase 62 U/L Total Creatine Kinase 323 U/L Creatine Kinase MB 4.6 NG/ML Creatine Kinase MB % 1.4 % Troponin I 0.09 NG/ML Total Protein 7.3 GM/DL Albumin 3.5 GM/DL MDM Medical Decision Making Medical Screen Exam Complete: Yes Emergency Medical Condition: Yes Interpretation(s) EKG: ST elevation in V3 and V4 similar to prior EKGs with Q waves in the anterior leads and T-wave inversions in the lateral leads, all changes likely related to the patient's cardiomyopathy. Mild anemia Magnesium is low Total bilirubin is elevated CK is 323 Troponin is consistent with prior and somewhat improved from last visit Differential Diagnosis Electrolyte abnormality, alcohol dependence, substance intoxication, dehydration , acute coronary syndrome Narrative Course This is a 41-year-old male who presents to the emergency department with nonspecific complaints including tingling in his extremities and some vomiting this morning. He's had no chest pain or shortness of breath. He has a history of chronic alcohol and substance abuse. He has a chronically abnormal EKG. He was placed on a monitor and labs were obtained. Labs are reassuring with the exception of a low magnesium. Troponin is 0.09 which is consistent with baseline in the setting of nonischemic cardiomyopathy. I don't think he requires an additional ACS workup as he's having no chest pain or shortness of breath and he was just admitted for similar symptoms one week ago and had a cardiology evaluation. Patient requires outpatient follow-up with his primary. He was discharged home. Diagnosis Primary Impression: Paresthesias Patient Instructions: General Instructions Additional Instructions: If you develop severe chest pain, shortness of breath, sweating, lightheadedness , dizziness or difficulty breathing return to the emergency department immediately. Followup with your primary care physician in 2-3 days if your symptoms are not resolved. Med/Other Pt SpecificInfo: No Change to Meds Disposition: 01 DISCHARGE HOME Condition: Stable Whitley Crews MD Dec 30, 2016 13:23
[2016-12-30 13:49] LABS: AUTOMATED NEUTROPHIL # 2.2 TH/MM3 (1.8-7.7); BASOPHIL % 0.9 % (0.0-2.0); EOSINOPHIL # 0.1 TH/MM3 (0-0.4); EOSINOPHIL % 1.2 % (0.0-4.0); HEMATOCRIT 37.3 % (39.0-51.0); HEMO FLAGS DIFF FINAL; LYMPH % 40.7 % (9.0-44.0); LYMPHOCYTE # 1.9 TH/MM3 (1.0-4.8); MEAN CELL VOLUME 87.5 FL (80.0-100.0); MEAN CORPUSCULAR HEMOGLOBIN 29.1 PG (27.0-34.0); MEAN CORPUSCULAR HGB CONC 33.3 % (32.0-36.0); MONO % 9.7 % (0.0-8.0); NEUT % 47.5 % (16.0-70.0); PLATELET COUNT 160 TH/MM3 (150-450); RED BLOOD COUNT 4.26 MIL/MM3 (4.50-5.90); RED CELL DISTRIBUTION WIDTH 12.9 % (11.6-17.2); WHITE BLOOD COUNT 4.6 TH/MM3 (4.0-11.0)
[2016-12-30 14:07] LABS: ALT (GPT) 39 U/L (12-78); ANION GAP 12 MEQ/L (5-15); AST (GOT) 89 U/L (15-37); BICARBONATE 21.8 MEQ/L (21.0-32.0); BLOOD UREA NITROGEN 8 MG/DL (7-18); CHLORIDE 107 MEQ/L (98-107); GLOMERULAR FILTRATION RATE 116 ML/MIN (>89); MAGNESIUM 1.4 MG/DL (1.5-2.5); POTASSIUM 4.2 MEQ/L (3.5-5.1); SODIUM (NA) 141 MEQ/L (136-145)
[2016-12-30 14:11] LABS: ALKALINE PHOSPHATASE 62 U/L (45-117); CREATINE KINASE 323 U/L (39-308); TOTAL BILIRUBIN ADULT 1.5 MG/DL (0.2-1.0)
[2016-12-30 14:26] LABS: CKMB 4.6 NG/ML (0.5-3.6)
[2016-12-30 14:42] VITALS: BP 125/82; PULSE 81; RESP 17; O2SAT 99
[2016-12-30] MEDS ORDERED: MAGNESIUM OXIDE 400 MG TAB PO ONE (14:45)
[2016-12-30 15:20] VITALS: BP 122/78; TEMP 97.8
--- NOTE | 2017-01-01 07:32 | EKG ---
Date Performed: 12/30/2016 Time Performed: 12:51:35 PTAGE: 41 years EKG: Sinus rhythm POSSIBLE LEFT ATRIAL ENLARGEMENT LEFT ANTERIOR FASCICULAR BLOCK SEPTAL MYOCARDIAL INFARCTION MODERAT E T-WAVE ABNORMALITY, CONSIDER LATERAL ISCHEMIA LEFT VENTRICULAR HYPERTROPHY ANTEROLATERAL ST ELEVATI ON, PROBABLY SECONDARY TO LVH BUT ANTEROLATERAL INJURY SHOULD ALSO BE CONSIDERED AND EXCLUDED [facility] L[facility] ABNORMAL ECG Compared to PREVIOUS TRACING , no significant serial change. PREVIOUS TRACIN12/15/2016 12.09 DOCTOR: Stacey Rubin Interpretating Date/Time 01/01/2017 07:31:03
== END 2016-12-30 15:20 | disposition home or self-care (01) ==
LOC: NEPA 12:12
DX: R20.9 Unspecified disturbances of skin sensation (principal); R11.2 Nausea with vomiting, unspecified; I10 Essential (primary) hypertension; F12.90 Cannabis use, unspecified, uncomplicated; R94.31 Abnormal electrocardiogram [ECG] [EKG]; Z79.01 Long term (current) use of anticoagulants; Z72.0 Tobacco use
CPT/HCPCS: 80053; 82550; 82552; 83735; 84484; 85025; 93005; 96361; 96374; 99284; J2405; J7040

== ENCOUNTER 2017-01-14 01:51 | Inpatient (IN) | payer OTHER ==
[2017-01-14] VITALS (14 sets, daily range): BP systolic 93–120; BP diastolic 55–80; PULSE 60–93; RESP 11–24; TEMP 97.9–98.7; O2SAT 94–100
[2017-01-14] MEDS ORDERED: ASPIRIN 81 MG CHEW TAB PO ONE (02:00)
[2017-01-14] MEDS ORDERED: SODIUM CHLORIDE 0.9% FLUSH 10 ML FLUSH IVF PRN (02:00)
[2017-01-14 02:51] LABS: BASOPHIL % 0.6 % (0.0-2.0); EOSINOPHIL # 0.1 TH/MM3 (0-0.4); HEMATOCRIT 38.9 % (39.0-51.0); HEMO FLAGS DIFF FINAL; LYMPH % 55.1 % (9.0-44.0); LYMPHOCYTE # 3.1 TH/MM3 (1.0-4.8); MEAN CELL VOLUME 88.2 FL (80.0-100.0); MEAN CORPUSCULAR HEMOGLOBIN 28.8 PG (27.0-34.0); MEAN CORPUSCULAR HGB CONC 32.6 % (32.0-36.0); MONO % 7.3 % (0.0-8.0); PLATELET COUNT 165 TH/MM3 (150-450); RED BLOOD COUNT 4.41 MIL/MM3 (4.50-5.90); RED CELL DISTRIBUTION WIDTH 13.7 % (11.6-17.2); WHITE BLOOD COUNT 5.6 TH/MM3 (4.0-11.0)
[2017-01-14 02:57] LABS: APTT (PATIENT) 25.3 SEC (24.3-30.1); PROTHROMBIN TIME - PATIENT 10.7 SEC (9.8-11.6)
--- NOTE | 2017-01-14 03:05 | RADRPT ---
EXAM DATE/TIME: 01/14/2017 02:14 [facility] COMPARISON: CHEST SINGLE AP, December 15, 2016, 12:17. INDICATIONS : Chest pain. MEDICAL HISTORY : Myocardial infarction. Congestive heart failure. SURGICAL HISTORY : None. ENCOUNTER: Initial ACUITY: 1 day PAIN SCORE: 5/10 LOCATION: Bilateral chest FINDINGS: A single view of the chest demonstrates the lungs to be hyperaerated without evidence of mass, infilt rate or effusion. The cardiomediastinal contours are unremarkable. Osseous structures are intact. CONCLUSION: Hyperaeration without infiltrate. Willy Payne MD on January 14, 2017 at 3:03 Board Certified Radiologist. This report was verified electronically.
[2017-01-14 03:06] LABS: BICARBONATE 23.3 MEQ/L (21.0-32.0); MAGNESIUM 1.7 MG/DL (1.5-2.5); POTASSIUM 4.2 MEQ/L (3.5-5.1)
[2017-01-14 03:21] LABS: CKMB 4.6 NG/ML (0.5-3.6)
[2017-01-14 05:47] LABS: CREATINE KINASE 307 U/L (39-308)
[2017-01-14] MEDS ORDERED: FURO40TA PO (05:52)
[2017-01-14] MEDS ORDERED: XARE20TA PO (05:52)
[2017-01-14 06:02] LABS: CKMB 5.1 NG/ML (0.5-3.6)
--- NOTE | 2017-01-14 06:39 | PD ---
HPI Chief Complaint: Chest Pain Time Seen by Provider: 01:59 Travel History International Travel<30 days: No Contact w/Intl Traveler<30days: No Traveled to known affect area: No History of Present Illness HPI His is a 41 year-old gentleman is well-known to this emergency department, who presents today with complaints of chest pain. The patient states he was eating hot wings and drinking beer today when he noticed substernal chest pain, pressure. The patient does have a history of previous admissions for polysubstance abuse including cocaine and has been diagnosed with vasospastic angina. He denies any cocaine use it this time. The patient also has a history of nonischemic cardiomyopathy. He has had previous elevated troponins in the past however they have not trended up or down. He denies any shortness of breath. He denies any diaphoresis but does state that he is nauseous. PFSH Past Medical History Hx Anticoagulant Therapy: Yes (xarelto) Autoimmune Disease: No Blood Disorders: No Anxiety: Yes Depression: Yes Heart Rhythm Problems: Yes (SVT, PA) Cancer: No Cardiac Catheterization: No Cardiovascular Problems: Yes ([place]) High Cholesterol: No Chemotherapy: No Chest Pain: Yes Congestive Heart Failure: Yes Cirrhosis: Yes Cerebrovascular Accident: No Diabetes: No Diminished Hearing: Yes (BILATERAL) Endocrine: No Gastrointestinal Disorders: Yes (ELEVATED LIVER ENZYMES) GERD: Yes Glaucoma: No Genitourinary: Yes Hepatitis: No Hiatal Hernia: No Heparin Induced Thrombocytopen: No Hypertension: Yes Immune Disorder: No Implanted Vascular Access Dvce: No Musculoskeletal: Yes Neurologic: No Psychiatric: Yes Reproductive: No Respiratory: No Immunizations Current: No Myocardial Infarction: Yes Pneumonia: Yes Radiation Therapy: No Sickle Cell Disease: No Thyroid Disease: No Ulcer: Yes Past Surgical History Abdominal Surgery: Yes (EXPLORATORY LAP) AICD: No Appendectomy: No Arteriovenous Shunt: No Cholecystectomy: No Coronary Artery Bypass Graft: No Ear Surgery: No Endocrine Surgery: No Eye Surgery: No Gynecologic Surgery: No Hysterectomy: No Insulin Pump: No Joint Replacement: No Neurologic Surgery: No Oral Surgery: Yes (TEETH EXTRACTIONS) Pacemaker: No Other Surgery: No Family History Family Myocardial Infarction: Yes (MOTHER/GRANDMOTHER) Social History Alcohol Use: Yes (beer / liquor every day) Tobacco Use: Yes (1 pack per day) Substance Use: Yes (MARIJUANA) Allergies-Medications (Allergen,Severity, Reaction): Coded Allergies: Iodine (Verified Allergy, Severe, itching, 01/14/17) Seafood (Verified Allergy, Severe, itching, 01/14/17) Reported Meds & Prescriptions Reported Meds & Active Scripts Active Reported Xarelto (Rivaroxaban) 20 Mg Tab 20 Mg PO DAILY Furosemide 40 Mg Tab 40 Mg PO BID Omeprazole 20 Mg Tab 20 Mg PO DAILY Mirtazapine ODT (Mirtazapine) 30 Mg Tab 30 Mg PO HS Ramipril 5 Mg Cap 5 Mg PO DAILY Quetiapine (Quetiapine Fumarate) 25 Mg Tab 25 Mg PO HS Isosorbide Mononitrate ER (Isosorbide Mononitrate) 30 Mg Tahir 30 Mg PO DAILY Klor-Con 10 (Potassium Chloride) 10 Meq Tab 20 Meq PO DAILY Digoxin 0.25 Mg Tab 0.25 Mg PO DAILY Carvedilol 12.5 Mg Tab 12.5 Mg PO BID Review of Systems Except as stated in HPI: all other systems reviewed are Neg General / Constitutional: No: Chills HENT: No: Headaches, Neck Stiffness, Neck Pain Cardiovascular: Positive: Chest Pain or Discomfort (substernal), No: Palpitations ( rates it at 3-4 out of 10 on the pain scale), Irregular Rhythm Respiratory: No: Cough, Shortness of Breath Gastrointestinal: Positive: Nausea, No: Vomiting, Abdominal Pain Musculoskeletal: No: Weakness, Pain Neurologic: No: Weakness, Dizziness Psychiatric: Positive: Substance Abuse (denies use of cocaine but does report 3 beers.) Physical Exam Narrative GENERAL: Well-developed well-nourished gentleman in no acute respiratory distress. SKIN: Focused skin assessment warm/dry. HEAD: Atraumatic. Normocephalic. EYES: No scleral icterus. No injection or drainage. ENT: No nasal bleeding or discharge. Mucous membranes pink and moist. NECK: Trachea midline. No JVD. Supple CARDIOVASCULAR: Regular rate and rhythm. No murmur appreciated. RESPIRATORY: No accessory muscle use. Clear to auscultation. GASTROINTESTINAL: Abdomen soft, non-tender, nondistended. MUSCULOSKELETAL: No obvious deformities. No clubbing. No cyanosis. No edema. NEUROLOGICAL: Awake and alert. No obvious cranial nerve deficits. Motor grossly within normal limits. Normal speech. PSYCHIATRIC: Appropriate mood and affect; insight and judgment normal. Data Data Last Documented VS Vital Signs Date Time Temp Pulse Resp B/P Pulse Ox O2 Delivery O2 Flow Rate FiO2 01/14/17 06:00 80 13 113/76 01/14/17 04:00 99 01/14/17 02:04 Room Air 01/14/17 01:57 97.9 Orders Electrocardiogram (01/14/17 01:59) Basic Metabolic Panel (Bmp) (01/14/17 01:59) Ckmb (Isoenzyme) Profile (01/14/17 01:59) Complete Blood Count With Diff (01/14/17 01:59) Magnesium (Mg) (01/14/17 01:59) Prothrombin Time / Inr (Pt) (01/14/17 01:59) Act Partial Throm Time (Ptt) (01/14/17 01:59) Troponin I (01/14/17 01:59) Chest, Single Ap (01/14/17 01:59) Ecg Monitoring (01/14/17 01:59) Bilateral Bp Monitoring (01/14/17 01:59) Iv Access Insert/Monitor (01/14/17 01:59) Oximetry (01/14/17 01:59) Oxygen Administration (01/14/17 01:59) Aspirin Chew (Aspirin Chew) (01/14/17 02:00) Sodium Chloride 0.9% Flush (Ns Flush) (01/14/17 02:00) CKMB (01/14/17 02:33) CKMB% (01/14/17 02:33) Ckmb (Isoenzyme) Profile (01/14/17 04:54) Troponin I (01/14/17 04:54) CKMB (01/14/17 05:10) CKMB% (01/14/17 05:10) Drug Screen, Random Urine (01/14/17 06:31) Admit Order (Ed Use Only) (01/14/17 06:46) Place In Observation (01/14/17 ) Vital Signs (Adult) Q4H (01/14/17 06:46) Activity Oob With Assistance (01/14/17 06:46) Thermostat Maker / Telemetry .CONTINUOUS (01/14/17 06:46) Diet Heart Healthy (01/14/17 Breakfast) Sodium Chloride 0.9% Flush (Ns Flush) (01/14/17 07:00) Sodium Chloride 0.9% Flush (Ns Flush) (01/14/17 09:00) Creatine Kinase (Cpk) (01/14/17 10:00) Creatine Kinase (Cpk) (01/14/17 16:00) Troponin I (01/14/17 10:00) Troponin I (01/14/17 16:00) Electrocardiogram (01/14/17 10:00) Electrocardiogram (01/14/17 16:00) Case Management Consult (01/14/17 06:46) Naloxone Inj (Narcan Inj) (01/14/17 07:00) Carvedilol (Coreg) (01/14/17 09:00) Digoxin (Lanoxin) (01/14/17 09:00) Furosemide (Lasix) (01/14/17 09:00) Isosorbide Mononitrate (Imdur) (01/14/17 09:00) Mirtazapine Odt (Remeron Soltab Odt) (01/14/17 21:00) Potassium Chloride (Kcl) (01/14/17 09:00) Quetiapine (Seroquel) (01/14/17 21:00) Ramipril (Altace) (01/14/17 09:00) Rivaroxaban (Xarelto) (01/14/17 09:00) (Nf) Omeprazole (01/14/17 09:00) Labs Laboratory Tests Test 01/14/17 01/14/17 02:33 05:10 White Blood Count 5.6 TH/MM3 Red Blood Count 4.41 MIL/MM3 Hemoglobin 12.7 GM/DL Hematocrit 38.9 % Mean Corpuscular Volume 88.2 FL Mean Corpuscular Hemoglobin 28.8 PG Mean Corpuscular Hemoglobin 32.6 % Concent Red Cell Distribution Width 13.7 % Platelet Count 165 TH/MM3 Mean Platelet Volume 9.4 FL Neutrophils (%) (Auto) 35.0 % Lymphocytes (%) (Auto) 55.1 % Monocytes (%) (Auto) 7.3 % Eosinophils (%) (Auto) 2.0 % Basophils (%) (Auto) 0.6 % Neutrophils # (Auto) 2.0 TH/MM3 Lymphocytes # (Auto) 3.1 TH/MM3 Monocytes # (Auto) 0.4 TH/MM3 Eosinophils # (Auto) 0.1 TH/MM3 Basophils # (Auto) 0.0 TH/MM3 CBC Comment DIFF FINAL Differential Comment Prothrombin Time 10.7 SEC Prothromb Time International 1.0 RATIO Ratio Activated Partial 25.3 SEC Thromboplast Time Sodium Level 144 MEQ/L Potassium Level 4.2 MEQ/L Chloride Level 108 MEQ/L Carbon Dioxide Level 23.3 MEQ/L Anion Gap 13 MEQ/L Blood Urea Nitrogen 7 MG/DL Creatinine 1.01 MG/DL Estimat Glomerular Filtration 99 ML/MIN Rate Random Glucose 74 MG/DL Calcium Level 8.8 MG/DL Magnesium Level 1.7 MG/DL Total Creatine Kinase 326 U/L 307 U/L Creatine Kinase MB 4.6 NG/ML 5.1 NG/ML Creatine Kinase MB % 1.4 % Troponin I 0.12 NG/ML 0.34 NG/ML MDM Medical Decision Making Medical Screen Exam Complete: Yes Emergency Medical Condition: Yes Interpretation(s) Last 24 hours Impressions Chest X-Ray 01/14/17 0159 Signed Impressions: Service Date/Time: Saturday, January 14, 2017 02:14 - CONCLUSION: Hyperaeration without infiltrate. Willy Payne MD Differential Diagnosis ACS versus peptic ulcer disease versus muscle skeletal pain. Narrative Course 21 year-old gentleman with a history of nonischemic cardiomyopathy, acute injury to the kidneys, congestive heart failure, cocaine abuse in the past, previous elevated troponins, who presents today with complaints of chest pain after eating weddings. Patient also endorses 3 beers. The patient's initial EKG showed sinus rhythm with left ventricular hypertrophy. Initial troponin was 0.12 which is about his average. 3 hour repeat 12-lead showed no changes however his troponin did increase to 0.34. Given this, I feel the patient will benefit from serial cardiac enzymes. I did add a drug screen and it is pending at this time. Diagnosis Primary Impression: Chest pain Additional Impressions: increasing troponin history of nonischemic cardiomyopathy. History of congestive heart failure history of congestive heart failure Bal Muniz MD Jan 14, 2017 06:39
[2017-01-14] MEDS ORDERED: SODIUM CHLORIDE 0.9% FLUSH 10 ML FLUSH IV FLUSH PRN (07:00)
[2017-01-14] MEDS ORDERED: NALOXONE HCL 0.4 MG/ML AMP IV PRN (07:00)
[2017-01-14 07:19] LABS: AMPHETAMINE, URINE NEG (NEG); BARBITURATES, URINE NEG (NEG); COCAINE, URINE POS (NEG)
--- NOTE | 2017-01-14 08:19 | HHI.HP ---
[facility] Physician Dean Santillan, DO Admission Diagnosis chest pain, elevated troponin, history of cardiomyopathy Diagnoses: Chief Complaint: Chest pain - buring sensation. Travel History International Travel<30 Days: No Contact w/Intl Traveler <30 Da: No Traveled to Known Affected Are: No History of Present Illness Mr. Valdivia is a 41-year-old male with a history of DVT who presents to the emergency department due to burning sensation over his upper chest that started around midnight. He denies any nausea vomiting or diaphoresis but he felt hot. His symptoms lasted about 2 hours and subsided when he came to the emergency department. He denies any radiation of the pain to neck, jaw, arms. Patient denies any changes in bowel or bladder habits. Denies any shortness of breath cough fever or chills. Review of Systems ROS Limitations: Other Except as stated in HPI: all other systems reviewed are Neg Past Family Social History Past Medical History Deep vein thrombosis, SVT, myocardial infarction, anxiety, depression. Past Surgical History No major surgeries. Reported Medications Xarelto (Rivaroxaban) 20 Mg Tab 20 Mg PO DAILY Furosemide 40 Mg Tab 40 Mg PO BID Omeprazole 20 Mg Tab 20 Mg PO DAILY Mirtazapine ODT (Mirtazapine) 30 Mg Tab 30 Mg PO HS Ramipril 5 Mg Cap 5 Mg PO DAILY Quetiapine (Quetiapine Fumarate) 25 Mg Tab 25 Mg PO HS Isosorbide Mononitrate ER (Isosorbide Mononitrate) 30 Mg Tahir 30 Mg PO DAILY Klor-Con 10 (Potassium Chloride) 10 Meq Tab 20 Meq PO DAILY Digoxin 0.25 Mg Tab 0.25 Mg PO DAILY Carvedilol 12.5 Mg Tab 12.5 Mg PO BID Allergies: Coded Allergies: Iodine (Verified Allergy, Severe, itching, 01/14/17) Seafood (Verified Allergy, Severe, itching, 01/14/17) Family History Mom - heart attack. Dad - HTN, DM Social History Smokes 4-5 cig per day. 4-5 beers a day. Patient denies using cocaine, probably touched. Physical Exam Vital Signs Vital Signs Date Time Temp Pulse Resp B/P Pulse Ox O2 Delivery O2 Flow Rate FiO2 01/14/17 07:00 98.1 81 18 110/76 98 Room Air 01/14/17 06:00 80 13 113/76 01/14/17 04:00 84 14 120/74 99 01/14/17 03:00 90 14 109/70 94 01/14/17 02:04 Room Air 01/14/17 02:04 100 Room Air 01/14/17 02:04 100 Room Air 01/14/17 01:57 97.9 93 11 109/70 100 Physical Exam GENERAL: This is a well-nourished, well-developed patient, in no apparent distress. SKIN: No rashes, ecchymoses or lesions. Warm and dry. HEAD: Atraumatic. Normocephalic. No temporal or scalp tenderness. EYES: Pupils equal round and reactive. No injection or drainage. ENT: Nose without bleeding, purulent drainage or septal hematoma. Airway patent. NECK: Trachea midline. No lymphadenopathy. Supple, nontender, no meningeal signs. CARDIOVASCULAR: Regular rate and rhythm without murmurs, gallops, or rubs. No JVD. RESPIRATORY: Clear to auscultation. Breath sounds equal bilaterally. No wheezes , rales, or rhonchi. GASTROINTESTINAL: Abdomen soft, non-tender, nondistended. No guarding. MUSCULOSKELETAL: Extremities without clubbing, cyanosis, or edema. NEUROLOGICAL: Awake and alert. Cranial nerves II through XII intact. No focal neurological deficits. Normal speech. Laboratory Laboratory Tests Test 01/14/17 01/14/17 01/14/17 02:33 05:10 06:30 White Blood Count 5.6 Red Blood Count 4.41 Hemoglobin 12.7 Hematocrit 38.9 Mean Corpuscular Volume 88.2 Mean Corpuscular Hemoglobin 28.8 Mean Corpuscular Hemoglobin 32.6 Concent Red Cell Distribution Width 13.7 Platelet Count 165 Mean Platelet Volume 9.4 Neutrophils (%) (Auto) 35.0 Lymphocytes (%) (Auto) 55.1 Monocytes (%) (Auto) 7.3 Eosinophils (%) (Auto) 2.0 Basophils (%) (Auto) 0.6 Neutrophils # (Auto) 2.0 Lymphocytes # (Auto) 3.1 Monocytes # (Auto) 0.4 Eosinophils # (Auto) 0.1 Basophils # (Auto) 0.0 CBC Comment DIFF FINAL Differential Comment Prothrombin Time 10.7 Prothromb Time International 1.0 Ratio Activated Partial 25.3 Thromboplast Time Sodium Level 144 Potassium Level 4.2 Chloride Level 108 Carbon Dioxide Level 23.3 Anion Gap 13 Blood Urea Nitrogen 7 Creatinine 1.01 Estimat Glomerular Filtration 99 Rate Random Glucose 74 Calcium Level 8.8 Magnesium Level 1.7 Total Creatine Kinase 326 307 Creatine Kinase MB 4.6 5.1 Creatine Kinase MB % 1.4 Troponin I 0.12 0.34 Urine Opiates Screen NEG Urine Barbiturates Screen NEG Urine Amphetamines Screen NEG Urine Benzodiazepines Screen NEG Urine Cocaine Screen POS Urine Cannabinoids Screen NEG Result Diagram: 01/14/173 01/14/17232 Imaging Last Impressions Chest X-Ray 01/14/17 0159 Signed Impressions: Service Date/Time: Saturday, January 14, 2017 02:14 - CONCLUSION: Hyperaeration without infiltrate. Willy Payne MD Assessment and Plan Problem List: (1) Chest pain ICD Code: R07.9 Status: Acute (2) Cocaine abuse ICD Code: F14.10 Status: Acute (3) Tobacco abuse ICD Code: Z72.0 Status: Acute (4) Alcohol abuse ICD Code: F10.10 Status: Acute Assessment and Plan Mr. Valdivia is a 41-year-old male with a history of DVT, cocaine abuse who presents to the emergency department due to burning sensation on his upper chest that started around midnight. Currently patient is symptom free. His troponins are 0.12, 0.34, 1.46. Patient adamantly denies using cocaine. UDS positive for cocaine. - NSTEMI - likely due to cocaine abuse. Troponins 0.12, 0.34, 1.46. - Patient already received Xarelto which is his home med. - Will discontinue Xarelto and start patient on Lovenox 50mg BID starting in the morning. - Continue Aspirin 81mg Qday, Diltiazem 30mg QID, Lasix 40mg BID, Imdur 30mg Qday, Ramipril 5mg Qday. - Discussed with Dr. Jesse Rondon who recommends discharging patient in the AM. - Hypertension - Continue Ramipril 5mg Qday. - History of DVT in 2014 - Will discontinue Xarelto. No anti-coagulation needed on discharge. - Alcohol abuse - Tobacco abuse - Cocaine abuse - Patient denies using cocaine. UDS positive for cocaine. - Counselled patient regarding alcohol, tobacco, cocaine abuse. Full code. Xarelto. Lovenox starting on 01/14/2017. Physician Certification 2 Midnight Certification Type: Admission for Inpatient Services Order for Inpatient Services The services are ordered in accordance with Medicare regulations or non- Medicare payer requirements, as applicable. In the case of services not specified as inpatient-only, they are appropriately provided as inpatient services in accordance with the 2-midnight benchmark. Estimated LOS (days): 2 days is the estimated time the patient will need to remain in the hospital, assuming treatment plan goals are met and no additional complications. Post-Hospital Plan: Home Sneha Peralta DO Jan 14, 2017 08:19
[2017-01-14] MEDS ORDERED: NITROGLYCERIN 2% OINT 1 GM PACKET TOPICAL PRN (09:00)
[2017-01-14] MEDS ORDERED: RIVAROXABAN 20 MG TAB PO SCH (09:00)
[2017-01-14] MEDS: PANTOPRAZOLE SOD 20 MG DELAYED RELEASE TAB PO SCH (09:15)
[2017-01-14] MEDS: FUROSEMIDE 40 MG TAB PO SCH ×2 (09:15→21:00)
[2017-01-14] MEDS: DIGOXIN 0.25 MG TAB PO SCH (09:15)
[2017-01-14] MEDS: POTASSIUM CHLORIDE 20 MEQ CONTROLLED RELEASE TAB PO SCH (09:15)
[2017-01-14] MEDS: CARVEDILOL 12.5 MG TAB PO SCH ×2 (09:16→21:00)
[2017-01-14] MEDS: SODIUM CHLORIDE 0.9% FLUSH 10 ML FLUSH IV FLUSH SCH ×2 (09:16→21:00)
[2017-01-14] MEDS: RAMIPRIL 5 MG CAP PO SCH (09:19)
[2017-01-14] MEDS: ISOSORBIDE MONONITRATE 30 MG TAB PO SCH (10:56)
[2017-01-14] MEDS ORDERED: ENOXAPARIN SODIUM 60 MG/0.6 ML SYRINGE SQ SCH ×2 (11:00→21:00)
--- NOTE | 2017-01-14 11:32 | EKG ---
Date Performed: 01/14/2017 Time Performed: 05:12:00 PTAGE: 41 years EKG: Sinus rhythm POSSIBLE RIGHT ATRIAL ENLARGEMENT POSSIBLE LEFT ATRIAL ENLARGEMENT LEFT ANTERIOR FASCICULAR BLOCK LE FT VENTRICULAR HYPERTROPHY AND ST-T CHANGE POSSIBLE ANTEROSEPTAL MYOCARDIAL INFARCTION ABNORMAL ECG PREVIOUS TRACING : 12/30/2016 12.51 DOCTOR: Emmett Galdamez Interpretating Date/Time 01/14/2017 11:31:00
--- NOTE | 2017-01-14 11:35 | EKG ---
Date Performed: 01/14/2017 Time Performed: 01:52:28 PTAGE: 41 years EKG: Sinus rhythm POSSIBLE RIGHT ATRIAL ENLARGEMENT LEFT ATRIAL ENLARGEMENT MARKED LEFT AXIS DEVIATION LEFT VENTRICULA R HYPERTROPHY AND ST-T CHANGE POSSIBLE SEPTAL MYOCARDIAL INFARCTION ABNORMAL ECG PREVIOUS TRACING : 12/30/2016 12.51 DOCTOR: Emmett Galdamez Interpretating Date/Time 01/14/2017 11:33:13
[2017-01-14] MEDS: DILTIAZEM HCL 30 MG TAB PO SCH ×3 (12:53→19:56)
[2017-01-14 15:12] LABS: CKMB 9.5 NG/ML (0.5-3.6)
--- NOTE | 2017-01-14 16:47 | MB ---
cc: NGOC VARGAS M.D. DATE OF CONSULTATION: 01/14/2017 REASON FOR CONSULTATION: Evaluation of chest pain and abnormal cardiac enzymes. HISTORY OF PRESENT ILLNESS This is the first time I am seeing this 41-year-old man. He has had too numerous to count admissions to [facility] most of which related to substance abuse. He has seen multiple cardiologists before including Dr. Wen, Dr. Meléndez, Dr. Amezquita, Dr. Bolaños and most recently Dr. Ames. This is now the six admission to the hospital where he has tested positive for cocaine including February 05, 2005, May 09, 2007, October 06, 2009, September 11, 2014, November 08, 2014 and now this admission January 14, 2017. The patient states he has not been using cocaine that the cocaine since this time because he was handling it with his fingers. I asked him if he was in my shoes if he would find that very believable and he just shrugged his shoulders. The patient also smokes, he has well documented severe underlying cardiac disease related probably to the drug use. He had a previous cardiac catheterization May 08, 2015 showing normal coronary arteries with an EF of only 30%. He says he is followed by Dr. Dale outside the hospital and sees a equipment analyst in [facility] who wears glasses on [facility]. He came in because of severe chest pain. Again he will not confess to any illicit behavior before coming in the hospital. His chest pain has resolved. His cardiac enzymes have gone up. He has known hypertension. PAST MEDICAL HISTORY: Past medical history please see his old records, he has had multiple prior admissions. FAMILY HISTORY: Family history, his mother had a heart attack, father and hypertension, diabetes. SOCIAL HISTORY: Social history is documented. Previously imprisioned. Smoking use, polysubstance abuse. PHYSICAL EXAMINATION: IN GENERAL: Physical exam reveals a thin -Haitian male who is in no acute distress. VITAL SIGNS: The vital signs are charted. HEAD, EYES, EARS, NOSE, AND THROAT: Exam unremarkable. NECK: No JVD. CHEST: Clear to auscultation. CARDIAC: The cardiac exam shows a displaced PMI. S1-S2 and soft S3 regular rhythm 1/6 systolic murmur. ABDOMEN: The abdomen is soft. EXTREMITIES: No clubbing, cyanosis or edema. Pulses are intact. RADIOLOGIC: EKG's to sinus rhythm, left anterior fascicular block, LVH, LV strain biatrial enlargement. Troponins gone to 1.46. Chest x-ray shows hyperinflation he is on says he is on Xarelto. The reason for this is unclear. Venous Doppler December 16, 2016 showing no evidence of DVT and on December 23, 2014 showing thrombus and left common femoral vein and I gather that he has been on Xarelto for that reason. IMPRESSION: 41 year-old -Haitian male with long standing history of cocaine use going back at least 12 years. He has a well documented longstanding history of a nonischemic cardiomyopathy. He did test positive for cocaine this admission his troponins are elevated, most likely he has suffered an event related to his cocaine use. He is more stable now, I don't think that he is a candidate for stress test or could heart cath at this point a major problem is ongoing cocaine abuse that dates back now 12 years with resultant severe cardiomyopathy. PROGNOSIS: Prognosis is poor. INSIGHT: Minimal. I agree with use of the carvedilol although very difficult because actually any beta kash can be some risk with a cocaine use. He is not acutely intoxicated now so I am okay with continuing that. I don't think he is reliable to continue full dose anticoagulation with Xarelto, and this is for a DVT that happened two years ago, so I would take him off of that at discharge and just leave him on the aspirin. Thank you for asking me to see him. MD PIPPA Barr/gaby /2:43 PM /4:36 PM
[2017-01-14] MEDS ORDERED: ASPI81TA11 PO (17:05)
[2017-01-14] MEDS ORDERED: QUEtiapine FUMARATE 25 MG TAB PO SCH (21:00)
[2017-01-14] MEDS ORDERED: MIRTAZAPINE ODT 30 MG TAB PO SCH (21:00)
[2017-01-15] VITALS (7 sets, daily range): BP systolic 88–103; BP diastolic 54–63; PULSE 63–77; RESP 20–25; TEMP 98.4–98.9; O2SAT 97–100
[2017-01-15] MEDS: RAMIPRIL 5 MG CAP PO SCH (08:33)
[2017-01-15] MEDS: POTASSIUM CHLORIDE 20 MEQ CONTROLLED RELEASE TAB PO SCH (08:33)
[2017-01-15] MEDS: SODIUM CHLORIDE 0.9% FLUSH 10 ML FLUSH IV FLUSH SCH (08:33)
[2017-01-15] MEDS: PANTOPRAZOLE SOD 20 MG DELAYED RELEASE TAB PO SCH (08:33)
[2017-01-15] MEDS: FUROSEMIDE 40 MG TAB PO SCH (08:33)
[2017-01-15] MEDS: ISOSORBIDE MONONITRATE 30 MG TAB PO SCH (08:33)
[2017-01-15] MEDS ORDERED: ASPIRIN EC 81 MG TABEC PO SCH (09:00)
[2017-01-15] MEDS ORDERED: ENOXAPARIN SODIUM 60 MG/0.6 ML SYRINGE SQ SCH (09:00)
[2017-01-15] MEDS: DILTIAZEM HCL 30 MG TAB PO SCH ×2 (09:33→13:00)
[2017-01-15] MEDS: CARVEDILOL 12.5 MG TAB PO SCH (09:33)
--- NOTE | 2017-01-15 10:59 | HHI.PR ---
Subjective Remarks Follow up for chest pain, cocaine abuse. Mr. Valdivia is doing well. Chest pain resolved. No acute concerns. Objective Vitals Vital Signs Date Time Temp Pulse Resp B/P Pulse Ox O2 Delivery O2 Flow Rate FiO2 01/15/17 10:00 77 01/15/17 08:00 98.4 63 22 103/63 100 01/15/17 08:00 63 01/15/17 06:00 67 01/15/17 04:00 65 01/15/17 04:00 98.9 65 25 90/61 97 01/15/17 02:00 65 01/15/17 00:00 98.9 63 24 88/59 99 01/15/17 00:00 63 01/14/17 22:00 60 01/14/17 20:00 69 01/14/17 20:00 98.7 69 24 98/57 99 01/14/17 18:00 84 01/14/17 16:00 98.5 84 19 98/60 100 01/14/17 16:00 65 01/14/17 14:00 67 01/14/17 12:00 67 01/14/17 12:00 98.7 67 18 93/55 99 I/O 01/14/17 01/14/17 01/14/17 01/15/17 01/15/17 01/15/17 07:00 15:00 23:00 07:00 15:00 23:00 Intake Total 590 ml 0 ml Output Total 925 ml 250 ml Balance -335 ml -250 ml 0 ml Intake Oral 590 ml IV Total 0 ml Output Urine Total 925 ml 250 ml # Voids 1 1 # Bowel Movements 0 2 Result Diagram: 01/14/17 0233 01/14/17 0233 Imaging Last Impressions Chest X-Ray 01/14/17 0159 Signed Impressions: Service Date/Time: Saturday, January 14, 2017 02:14 - CONCLUSION: Hyperaeration without infiltrate. Willy Payne MD Objective Remarks GENERAL: AOX3, NAD SKIN: Warm and dry. HEAD: Normocephalic. EYES: No scleral icterus. No injection or drainage. NECK: Supple, trachea midline. No JVD or lymphadenopathy. CARDIOVASCULAR: Regular rate and rhythm without murmurs, gallops, or rubs. RESPIRATORY: Breath sounds equal bilaterally. No accessory muscle use. GASTROINTESTINAL: Abdomen soft, non-tender, nondistended. MUSCULOSKELETAL: No cyanosis, or edema. BACK: Nontender without obvious deformity. No CVA tenderness. Procedures None. A/P Problem List: (1) Chest pain ICD Code: R07.9 Status: Acute (2) Cocaine abuse ICD Code: F14.10 Status: Acute (3) Tobacco abuse ICD Code: Z72.0 Status: Acute (4) Alcohol abuse ICD Code: F10.10 Status: Acute Assessment and Plan Mr. Valdivia is a 41-year-old male with a history of DVT, cocaine abuse who presents to the emergency department due to burning sensation on his upper chest that started around midnight. Currently patient is symptom free. His troponins are 0.12, 0.34, 1.46. Patient adamantly denies using cocaine. UDS positive for cocaine. - NSTEMI - likely due to cocaine abuse. Troponins 0.12, 0.34, 1.46. - Appreciate cardiology recommendations. I discussed with Dr. Rondon on 2016, he recommended to continue beta kash but not CCB. - Continue Aspirin 81mg Qday, Carvedilol 12.5mg BID, Lasix 40mg BID, Imdur 30mg Qday, Ramipril 5mg Qday. - Hypertension - Continue Ramipril 5mg Qday. - History of DVT in 2014 - Will discontinue Xarelto. No anti-coagulation needed on discharge. - Alcohol abuse - Tobacco abuse - Cocaine abuse - Patient denies using cocaine. UDS positive for cocaine. - Counselled patient regarding alcohol, tobacco, cocaine abuse. - Discussed with patient again regarding importance of not doing cocaine. He verbalized understanding. Full code. Discharge patient to home Condition on discharge: Improved Regular Diet as tolerated Ad Pearl activity Rx written: - Aspirin 81mg Qday - over the counter, no Rx needed. - Discontinued Xarelto. Follow-up with primary care physician within one week. Discussed with CM who will arrange transportation. Sneha Peralta DO Jan 15, 2017 10:59
[2017-01-15] MEDS: DIGOXIN 0.25 MG TAB PO SCH (11:01)
[2017-01-15] MEDS ORDERED: CARV12.5 PO (11:12)
--- NOTE | 2017-01-15 11:13 | EKG ---
Date Performed: 01/14/2017 Time Performed: 15:15:48 PTAGE: 41 years EKG: Sinus rhythm RIGHT ATRIAL ENLARGEMENT POSSIBLE LEFT ATRIAL ENLARGEMENT LEFT ANTERIOR FASCICULAR BLOCK ANTEROLATER AL MYOCARDIAL INFARCTION , PROBABLY RECENT ACUTE AL PREVIOUS TRACING : 01/14/2017 12.39 DOCTOR: Kali Nails Interpretating Date/Time 01/15/2017 11:12:22
--- NOTE | 2017-01-15 12:00 | EKG ---
Date Performed: 01/14/2017 Time Performed: 12:39:45 PTAGE: 41 years EKG: Sinus rhythm RIGHT ATRIAL ENLARGEMENT LEFT ATRIAL ENLARGEMENT LEFT ANTERIOR FASCICULAR BLOCK ANTEROSEPTAL MYOCARD IAL INFARCTION , PROBABLY RECENT ACUTE AK PREVIOUS TRACING : 01/14/2017 05.12 DOCTOR: Kali Nails Interpretating Date/Time 01/15/2017 11:54:12
== END 2017-01-15 13:40 | disposition home or self-care (01) | DRG 281 ==
LOC: NEPE 01:51 → NEDA 06:48 → OBSVTOIN 07:38 → HIMN 10:20
PROVIDERS: ADMIT Hospitalist; ATTEND Hospitalist
DX: I21.4 Non-ST elevation (NSTEMI) myocardial infarction (principal); I42.9 Cardiomyopathy, unspecified; I50.9 Heart failure, unspecified; I11.0 Hypertensive heart disease with heart failure; I25.2 Old myocardial infarction; K74.60 Unspecified cirrhosis of liver; H91.93 Unspecified hearing loss, bilateral; K21.9 Gastro-esophageal reflux disease without esophagitis; F17.210 Nicotine dependence, cigarettes, uncomplicated; F10.10 Alcohol abuse, uncomplicated; F12.90 Cannabis use, unspecified, uncomplicated; F14.10 Cocaine abuse, uncomplicated; F32.9 Major depressive disorder, single episode, unspecified; F41.9 Anxiety disorder, unspecified; Z79.01 Long term (current) use of anticoagulants; Z82.49 Family history of ischemic heart disease and other diseases of the circulatory system; Z83.3 Family history of diabetes mellitus; Z86.718 Personal history of other venous thrombosis and embolism; Z91.013 Allergy to seafood; I44.4 Left anterior fascicular block
CPT/HCPCS: 71010; 80048; 80307; 82550; 82552; 83735; 84484; 85025; 85610; 85730; 87641; 93005; J1650

== ENCOUNTER 2017-01-25 06:14 | Emergency (ER) | payer OTHER ==
[~2017-01-25] VITALS: Ht 180.3 cm; Wt 55.0 kg
[~2017-01-25 06:14] MED LIST changes: +ASPI81TA11 PO; +CARV12.5 PO; -CARV12.52 PO
[2017-01-25 06:19] VITALS: BP 127/86; PULSE 82; RESP 16; TEMP 97.9; O2SAT 100
--- NOTE | 2017-01-25 07:27 | PD ---
HPI Chief Complaint: GI Complaint Time Seen by Provider: 07:23 Travel History International Travel<30 days: No Contact w/Intl Traveler<30days: No Traveled to known affect area: No History of Present Illness HPI 41-year-old male with history of alcohol use, previous DC, presents to the ER today with one-day history of nausea and vomiting. She denies any fevers, diarrhea, significant abdominal pains, or any other symptoms. He does not know any bad food exposure. He states that the last time he felt this way, he had food poisoning. He does not know any exacerbating or alleviating factors. Modifying Factors: None Associated Signs & Symptoms: Nausea and vomiting Risk Factors: None PFSH Past Medical History Hx Anticoagulant Therapy: Yes (xarelto) Autoimmune Disease: No Blood Disorders: No Anxiety: Yes Depression: Yes Heart Rhythm Problems: Yes (SVT, DC) Cancer: No Cardiac Catheterization: Yes Cardiovascular Problems: Yes (DC) High Cholesterol: No Chemotherapy: No Chest Pain: Yes Congestive Heart Failure: Yes Cirrhosis: Yes Cerebrovascular Accident: No Diabetes: No Diminished Hearing: Yes (BILATERAL) Endocrine: No Gastrointestinal Disorders: Yes (ELEVATED LIVER ENZYMES) GERD: Yes Glaucoma: No Genitourinary: Yes Hepatitis: No Hiatal Hernia: No Heparin Induced Thrombocytopen: No Hypertension: Yes Immune Disorder: No Implanted Vascular Access Dvce: No Musculoskeletal: Yes Neurologic: No Psychiatric: Yes Reproductive: No Respiratory: No Immunizations Current: No Myocardial Infarction: Yes Pneumonia: Yes Radiation Therapy: No Sickle Cell Disease: No Thyroid Disease: No Ulcer: Yes Past Surgical History Abdominal Surgery: Yes (EXPLORATORY LAP) AICD: No Appendectomy: No Arteriovenous Shunt: No Cholecystectomy: No Coronary Artery Bypass Graft: No Ear Surgery: No Endocrine Surgery: No Eye Surgery: No Gynecologic Surgery: No Hysterectomy: No Insulin Pump: No Joint Replacement: No Neurologic Surgery: No Oral Surgery: Yes (TEETH EXTRACTIONS) Pacemaker: No Other Surgery: No Family History Family Myocardial Infarction: Yes (MOTHER/GRANDMOTHER) Social History Alcohol Use: Yes (beer / liquor every day last drink yesterday ) Tobacco Use: Yes (1/4 pack per day) Substance Use: No Allergies-Medications (Allergen,Severity, Reaction): Coded Allergies: Iodine (Verified Allergy, Severe, itching, 01/25/17) Seafood (Verified Allergy, Severe, itching, 01/25/17) Reported Meds & Prescriptions Reported Meds & Active Scripts Active Coreg (Carvedilol) 12.5 Mg Tab 12.5 Mg PO BID Aspirin EC (Aspirin) 81 Mg Tabdr 81 Mg PO DAILY Reported Furosemide 40 Mg Tab 40 Mg PO BID Omeprazole 20 Mg Tab 20 Mg PO DAILY Mirtazapine ODT (Mirtazapine) 30 Mg Tab 30 Mg PO HS Ramipril 5 Mg Cap 5 Mg PO DAILY Quetiapine (Quetiapine Fumarate) 25 Mg Tab 25 Mg PO HS Isosorbide Mononitrate ER (Isosorbide Mononitrate) 30 Mg Tahir 30 Mg PO DAILY Klor-Con 10 (Potassium Chloride) 10 Meq Tab 20 Meq PO DAILY Digoxin 0.25 Mg Tab 0.25 Mg PO DAILY Review of Systems Except as stated in HPI: all other systems reviewed are Neg Physical Exam Narrative GENERAL: Thin middle age -Swiss male patient currently in mild distress. SKIN: Focused skin assessment warm/dry. HEAD: Atraumatic. Normocephalic. EYES: Pupils equal and round. No scleral icterus. No injection or drainage. ENT: No nasal bleeding or discharge. Mucous membranes pink and moist. NECK: Trachea midline. No JVD. CARDIOVASCULAR: Regular rate and rhythm. No murmur appreciated. RESPIRATORY: No accessory muscle use. Clear to auscultation. Breath sounds equal bilaterally. GASTROINTESTINAL: Abdomen soft, non-tender, nondistended. Hepatic and splenic margins not palpable. Benign. MUSCULOSKELETAL: No obvious deformities. No clubbing. No cyanosis. No edema. NEUROLOGICAL: Awake and alert. No obvious cranial nerve deficits. Motor grossly within normal limits. Normal speech. PSYCHIATRIC: Appropriate mood and affect; insight and judgment normal. Data Data Last Documented VS Vital Signs Date Time Temp Pulse Resp B/P Pulse Ox O2 Delivery O2 Flow Rate FiO2 01/25/17 07:37 99 Room Air 01/25/17 07:04 18 01/25/17 06:19 97.9 82 127/86 Orders Electrocardiogram (01/25/17 ) Complete Blood Count With Diff (01/25/17 07:19) Comprehensive Metabolic Panel (01/25/17 07:19) Lipase (01/25/17 07:19) Urinalysis - C+S If Indicated (01/25/17 07:19) Iv Access Insert/Monitor (01/25/17 07:19) Ecg Monitoring (01/25/17 07:19) Oximetry (01/25/17 07:19) Sodium Chloride 0.9% Flush (Ns Flush) (01/25/17 07:30) Sodium Chlor 0.9% 1000 Ml Inj (Ns 1000 M (01/25/17 07:30) Ondansetron Inj (Zofran Inj) (01/25/17 07:30) Pantoprazole Inj (Protonix Inj) (01/25/17 07:30) Labs Laboratory Tests Test 01/25/17 07:30 White Blood Count 5.1 TH/MM3 Red Blood Count 4.47 MIL/MM3 Hemoglobin 13.1 GM/DL Hematocrit 39.1 % Mean Corpuscular Volume 87.3 FL Mean Corpuscular Hemoglobin 29.4 PG Mean Corpuscular Hemoglobin 33.6 % Concent Red Cell Distribution Width 13.3 % Platelet Count 188 TH/MM3 Mean Platelet Volume 9.2 FL Neutrophils (%) (Auto) 40.8 % Lymphocytes (%) (Auto) 47.2 % Monocytes (%) (Auto) 8.7 % Eosinophils (%) (Auto) 2.0 % Basophils (%) (Auto) 1.3 % Neutrophils # (Auto) 2.1 TH/MM3 Lymphocytes # (Auto) 2.4 TH/MM3 Monocytes # (Auto) 0.4 TH/MM3 Eosinophils # (Auto) 0.1 TH/MM3 Basophils # (Auto) 0.1 TH/MM3 CBC Comment DIFF FINAL Differential Comment Sodium Level 143 MEQ/L Potassium Level 4.4 MEQ/L Chloride Level 109 MEQ/L Carbon Dioxide Level 22.0 MEQ/L Anion Gap 12 MEQ/L Blood Urea Nitrogen 6 MG/DL Creatinine 0.86 MG/DL Estimat Glomerular Filtration 119 ML/MIN Rate Random Glucose 70 MG/DL Calcium Level 8.8 MG/DL Total Bilirubin 0.5 MG/DL Aspartate Amino Transf 73 U/L (AST/SGOT) Alanine Aminotransferase 32 U/L (ALT/SGPT) Alkaline Phosphatase 61 U/L Total Protein 7.3 GM/DL Albumin 3.5 GM/DL Lipase 110 U/L [facility] Medical Decision Making Medical Screen Exam Complete: Yes Emergency Medical Condition: Yes Medical Record Reviewed: Yes Interpretation(s) Laboratory Tests Test 01/25/17 07:30 Red Blood Count 4.47 MIL/MM3 (4.50-5.90) Lymphocytes (%) (Auto) 47.2 % (9.0-44.0) Monocytes (%) (Auto) 8.7 % (0.0-8.0) Chloride Level 109 MEQ/L (98-107) Blood Urea Nitrogen 6 MG/DL (7-18) Random Glucose 70 MG/DL (74-106) Aspartate Amino Transf 73 U/L (15-37) (AST/SGOT) Differential Diagnosis Nausea and vomitinggastritis versus gastroenteritis versus pancreatitis versus dehydration versus electrolyte abnormalities Narrative Course Abdomen is benign and I do not suspect an acute intra-abdominal process. His lab work did not show significant leukocytosis, signs of dehydration, metabolic issues, or other significant acute processes. Patient was given IV fluids, Zofran, and Protonix in the ER. On reevaluation at 9:30 AM, he is feeling much improved, is requesting water, is doing well with by mouth challenge. At this point, my plan would be to release him with follow-up to primary care physician. Return for any worsening in symptoms as needed. The plan has been discussed with him and he states understanding. Diagnosis Primary Impression: Gastritis Med/Other Pt SpecificInfo: Prescription(s) given Scripts Ondansetron Odt (Zofran Odt)4 Mg Tab4 Mg SL Q6HR PRN (Nausea/Vomiting) #7 TAB Ref 0 Prov:Agustín Merlos MD 01/25/17 Famotidine (Pepcid)20 Mg Tab20 Mg PO BID #20 TAB Ref 0 Prov:Agustín Merlos MD 01/25/17 Disposition: 01 DISCHARGE HOME Condition: Stable Agustín Merlos MD Jan 25, 2017 07:27
[2017-01-25] MEDS ORDERED: PANTOPRAZOLE SODIUM 40 MG VIAL IV PUSH ONE (07:30)
[2017-01-25] MEDS ORDERED: SODIUM CHLOR 0.9% 1000 ML INJ 1,000 ML IV ONE (07:30)
[2017-01-25] MEDS ORDERED: ONDANSETRON HCL 4 MG/2 ML VIAL IV PUSH ONE (07:30)
[2017-01-25] MEDS ORDERED: SODIUM CHLORIDE 0.9% FLUSH 10 ML FLUSH IV FLUSH PRN (07:30)
[2017-01-25 07:37] VITALS: O2SAT 99
[2017-01-25 07:53] LABS: AUTOMATED NEUTROPHIL # 2.1 TH/MM3 (1.8-7.7); BASOPHIL # 0.1 TH/MM3 (0-0.2); BASOPHIL % 1.3 % (0.0-2.0); EOSINOPHIL # 0.1 TH/MM3 (0-0.4); HEMATOCRIT 39.1 % (39.0-51.0); HEMO FLAGS DIFF FINAL; LYMPH % 47.2 % (9.0-44.0); LYMPHOCYTE # 2.4 TH/MM3 (1.0-4.8); MEAN CELL VOLUME 87.3 FL (80.0-100.0); MEAN CORPUSCULAR HEMOGLOBIN 29.4 PG (27.0-34.0); MEAN CORPUSCULAR HGB CONC 33.6 % (32.0-36.0); MONO % 8.7 % (0.0-8.0); NEUT % 40.8 % (16.0-70.0); PLATELET COUNT 188 TH/MM3 (150-450); RED BLOOD COUNT 4.47 MIL/MM3 (4.50-5.90); RED CELL DISTRIBUTION WIDTH 13.3 % (11.6-17.2); WHITE BLOOD COUNT 5.1 TH/MM3 (4.0-11.0)
[2017-01-25 08:10] LABS: ALT (GPT) 32 U/L (12-78); ANION GAP 12 MEQ/L (5-15); AST (GOT) 73 U/L (15-37); BLOOD UREA NITROGEN 6 MG/DL (7-18); CHLORIDE 109 MEQ/L (98-107); GLOMERULAR FILTRATION RATE 119 ML/MIN (>89); POTASSIUM 4.4 MEQ/L (3.5-5.1); SODIUM (NA) 143 MEQ/L (136-145)
[2017-01-25 08:12] LABS: ALKALINE PHOSPHATASE 61 U/L (45-117); TOTAL BILIRUBIN ADULT 0.5 MG/DL (0.2-1.0)
[2017-01-25] MEDS ORDERED: FAMO1TAB37 PO (09:46)
[2017-01-25] MEDS ORDERED: ZOFR4TAB3 SL (09:46)
[2017-01-25 10:00] LABS: BLOOD, URINE NEG (NEG); COMMENT (UR) CULT NOT INDICATED; CULTURE IF INDICATED CULT NOT INDICATED; GLUCOSE,URINE NEG (NEG); KETONE, URINE NEG (NEG); NITRITE,URINE NEG (NEG); PH, URINE 5.5 (5.0-8.5); URINE COLOR YELLOW (YELLW/STRAW)
[2017-01-25 10:33] VITALS: BP 115/79
--- NOTE | 2017-01-25 13:29 | EKG ---
Date Performed: 01/25/2017 Time Performed: 07:13:47 PTAGE: 41 years EKG: Sinus rhythm POSSIBLE LEFT ATRIAL ENLARGEMENT MARKED LEFT AXIS DEVIATION POSSIBLE RIGHT VENTRICULAR CONDUCTION DE LAY ANTEROSEPTAL MYOCARDIAL INFARCTION Cannot rule out acute ischemia Compared to prior tracing no si gnificant change PREVIOUS TRACING : 01/25/2017 07.10 DOCTOR: Charlie Bonilla Interpretating Date/Time 01/25/2017 13:28:30
== END 2017-01-25 10:42 | disposition home or self-care (01) ==
LOC: NEPE 06:14
DX: K29.70 Gastritis, unspecified, without bleeding (principal); I47.1 Supraventricular tachycardia; I25.2 Old myocardial infarction; I50.9 Heart failure, unspecified; I10 Essential (primary) hypertension; K21.9 Gastro-esophageal reflux disease without esophagitis; F17.210 Nicotine dependence, cigarettes, uncomplicated; Z79.01 Long term (current) use of anticoagulants
CPT/HCPCS: 80053; 81001; 83690; 85025; 93005; 96374; 96375; 99284; C9113; J2405; J7030

== ENCOUNTER 2017-02-17 16:26 | Observation (INO) | payer OTHER ==
[~2017-02-17] VITALS: Ht 175.3 cm; Wt 52.0 kg
[~2017-02-17 16:26] MED LIST changes: +FAMO1TAB37 PO; +ZOFR4TAB3 SL
[2017-02-17 16:38] VITALS: BP 116/77; PULSE 78; RESP 16; TEMP 98.3; O2SAT 98
[2017-02-17] MEDS ORDERED: SODIUM CHLORID 0.9% 500 ML INJ 500 ML IV ONE (16:45)
[2017-02-17] MEDS ORDERED: methylPREDNISolone SOD SUCC 125 MG/2 ML VIAL IV PUSH ONE (16:45)
[2017-02-17] MEDS ORDERED: SODIUM CHLORIDE 0.9% FLUSH 10 ML FLUSH IVF PRN (16:45)
[2017-02-17] MEDS ORDERED: XARE20TA PO (16:46)
[2017-02-17 16:59] VITALS: O2SAT 98
[2017-02-17] MEDS: RESP: ALBUTEROL 2.5 MG/IPRATROPIUM 0.5 MG NEB (SCH) INH ×2 (17:00→17:01)
[2017-02-17 17:04] VITALS: RESP 18; O2SAT 100
--- NOTE | 2017-02-17 17:11 | PD ---
HPI Chief Complaint: Chest Pain Time Seen by Provider: 16:54 Travel History International Travel<30 days: No Contact w/Intl Traveler<30days: No Traveled to known affect area: No History of Present Illness HPI Patient is a 41-year-old male presenting to the emergency department for evaluation of chest pain. Patient states pain started 2 hours prior to arrival he reports it is dull, a 4 out of 10 in his left upper chest wall. He also reports shortness of breath, nausea, dizziness, nonproductive cough and feeling as if his chest is tight. He was given 2 nitroglycerin sprays per EMS and reports the pain is "easing up". She has been tolerating food and fluids, he endorses daily tobacco use, denies any illicit drug use and states he drinks alcohol every other day. Patient's past medical history is significant for cardiomyopathy, hypertension, myocardial infarct, GERD, patient has a history of illicit drug use. PFSH Past Medical History Hx Anticoagulant Therapy: Yes (xarelto) Autoimmune Disease: No Blood Disorders: No Anxiety: Yes Depression: Yes Heart Rhythm Problems: Yes ([place], [place]) Cancer: No Cardiac Catheterization: Yes Cardiomyopathy: Yes High Cholesterol: No Chemotherapy: No Chest Pain: Yes Congestive Heart Failure: Yes Cirrhosis: Yes Cerebrovascular Accident: No Diabetes: No Diminished Hearing: Yes (BILATERAL) Endocrine: No GERD: Yes Glaucoma: No Genitourinary: Yes Hepatitis: No Hiatal Hernia: No Heparin Induced Thrombocytopen: No Hypertension: Yes Immune Disorder: No Implanted Vascular Access Dvce: No Musculoskeletal: Yes Neurologic: No Reproductive: No Respiratory: No Immunizations Current: No Myocardial Infarction: Yes Pneumonia: Yes Radiation Therapy: No Sickle Cell Disease: No Thyroid Disease: No Ulcer: Yes Past Surgical History Abdominal Surgery: Yes (EXPLORATORY LAP) AICD: No Appendectomy: No Arteriovenous Shunt: No Body Medical Devices: pacemaker Cholecystectomy: No Coronary Artery Bypass Graft: No Ear Surgery: No Endocrine Surgery: No Eye Surgery: No Gynecologic Surgery: No Hysterectomy: No Insulin Pump: No Joint Replacement: No Neurologic Surgery: No Oral Surgery: Yes (TEETH EXTRACTIONS) Pacemaker: No Other Surgery: No Family History Family Myocardial Infarction: Yes (MOTHER/GRANDMOTHER) Social History Alcohol Use: Yes (beer / liquor every day last drink yesterday ) Tobacco Use: Yes (1/4 pack per day) Substance Use: Yes (COCAINE + 1 MONTH AGO) Allergies-Medications (Allergen,Severity, Reaction): Coded Allergies: Iodine (Verified Allergy, Severe, itching, 02/17/17) Seafood (Verified Allergy, Severe, itching, 02/17/17) Reported Meds & Prescriptions Reported Meds & Active Scripts Active Pepcid (Famotidine) 20 Mg Tab 20 Mg PO BID Coreg (Carvedilol) 12.5 Mg Tab 12.5 Mg PO BID Reported Xarelto (Rivaroxaban) 20 Mg Tab 20 Mg PO HS Furosemide 40 Mg Tab 40 Mg PO BID Omeprazole 20 Mg Tab 20 Mg PO DAILY Mirtazapine ODT (Mirtazapine) 30 Mg Tab 30 Mg PO HS Ramipril 5 Mg Cap 5 Mg PO DAILY Quetiapine (Quetiapine Fumarate) 25 Mg Tab 25 Mg PO HS Isosorbide Mononitrate ER (Isosorbide Mononitrate) 30 Mg Tahir 30 Mg PO DAILY Klor-Con 10 (Potassium Chloride) 10 Meq Tab 20 Meq PO DAILY Digoxin 0.25 Mg Tab 0.25 Mg PO DAILY Review of Systems Except as stated in HPI: all other systems reviewed are Neg General / Constitutional: No: Fever, Chills HENT: No: Headaches Cardiovascular: Positive: Chest Pain or Discomfort Respiratory: Positive: Cough, Shortness of Breath, Wheezing Gastrointestinal: Positive: Nausea, No: Abdominal Pain Genitourinary: No: Dysuria Musculoskeletal: No: Myalgias Neurologic: Positive: Dizziness, No: Weakness, Syncope, Focal Abnormalities, Change in Mentation, Sensory Disturbance Physical Exam Narrative GENERAL: Thin, well-developed, alert male. Hard of hearing. Resting comfortably in no acute distress SKIN: Focused skin assessment warm/dry. HEAD: Atraumatic. Normocephalic. EYES: Pupils equal and round. No scleral icterus. No injection or drainage. ENT: No nasal bleeding or discharge. Mucous membranes pink and moist. NECK: Trachea midline. No JVD. CARDIOVASCULAR: Regular rate and rhythm. 2/6 systolic murmur appreciated. RESPIRATORY: No accessory muscle use. Scattered expiratory wheezing throughout. GASTROINTESTINAL: Abdomen soft, non-tender, nondistended. Hepatic and splenic margins not palpable. Positive bowel sounds, no rebound, no guarding. MUSCULOSKELETAL: No obvious deformities. No clubbing. No cyanosis. No edema. NEUROLOGICAL: Awake and alert. No obvious cranial nerve deficits. Motor grossly within normal limits. Normal speech. PSYCHIATRIC: Appropriate mood and affect; insight and judgment normal. Data Data Last Documented VS Vital Signs Date Time Temp Pulse Resp B/P Pulse Ox O2 Delivery O2 Flow Rate FiO2 02/17/17 17:04 100 Aerosol Mask 02/17/17 17:04 18 02/17/17 16:59 21 02/17/17 16:38 98.3 78 116/77 Orders Electrocardiogram (02/17/17 16:42) Ckmb (Isoenzyme) Profile (02/17/17 16:42) Complete Blood Count With Diff (02/17/17 16:42) Comprehensive Metabolic Panel (02/17/17 16:42) Magnesium (Mg) (02/17/17 16:42) Prothrombin Time / Inr (Pt) (02/17/17 16:42) Act Partial Throm Time (Ptt) (02/17/17 16:42) Troponin I (02/17/17 16:42) Chest, Single Ap (02/17/17 16:42) Ecg Monitoring (02/17/17 16:42) Bilateral Bp Monitoring (02/17/17 16:42) Iv Access Insert/Monitor (02/17/17 16:42) Oximetry (02/17/17 16:42) Oxygen Administration (02/17/17 16:42) Sodium Chloride 0.9% Flush (Ns Flush) (02/17/17 16:45) Sodium Chlorid 0.9% 500 Ml Inj (Ns 500 M (02/17/17 16:45) Methylprednisolone So Succ Inj (Solumedr (02/17/17 16:45) Drug Screen, Random Urine (02/17/17 16:42) Albuterol-Ipratropium Neb (Duoneb Neb) (02/17/17 16:45) Digoxin (02/17/17 17:07) CKMB (02/17/17 16:50) CKMB% (02/17/17 16:50) Troponin I (02/17/17 19:50) Ckmb (Isoenzyme) Profile (02/17/17 17:57) Admit Order (Ed Use Only) (02/17/17 19:27) Labs Laboratory Tests Test 02/17/17 02/17/17 16:50 18:22 White Blood Count 5.2 TH/MM3 Red Blood Count 4.15 MIL/MM3 Hemoglobin 12.0 GM/DL Hematocrit 37.0 % Mean Corpuscular Volume 89.2 FL Mean Corpuscular Hemoglobin 28.8 PG Mean Corpuscular Hemoglobin 32.3 % Concent Red Cell Distribution Width 14.1 % Platelet Count 162 TH/MM3 Mean Platelet Volume 9.3 FL Neutrophils (%) (Auto) 46.2 % Lymphocytes (%) (Auto) 37.9 % Monocytes (%) (Auto) 14.7 % Eosinophils (%) (Auto) 0.7 % Basophils (%) (Auto) 0.5 % Neutrophils # (Auto) 2.4 TH/MM3 Lymphocytes # (Auto) 2.0 TH/MM3 Monocytes # (Auto) 0.8 TH/MM3 Eosinophils # (Auto) 0.0 TH/MM3 Basophils # (Auto) 0.0 TH/MM3 CBC Comment DIFF FINAL Differential Comment Prothrombin Time 11.4 SEC Prothromb Time International 1.0 RATIO Ratio Activated Partial 25.3 SEC Thromboplast Time Sodium Level 139 MEQ/L Potassium Level 4.5 MEQ/L Chloride Level 107 MEQ/L Carbon Dioxide Level 22.9 MEQ/L Anion Gap 9 MEQ/L Blood Urea Nitrogen 10 MG/DL Creatinine 1.03 MG/DL Estimat Glomerular Filtration 96 ML/MIN Rate Random Glucose 84 MG/DL Calcium Level 9.0 MG/DL Magnesium Level 1.5 MG/DL Total Bilirubin 1.4 MG/DL Aspartate Amino Transf 86 U/L (AST/SGOT) Alanine Aminotransferase 38 U/L (ALT/SGPT) Alkaline Phosphatase 51 U/L Total Creatine Kinase 315 U/L Creatine Kinase MB 6.4 NG/ML Creatine Kinase MB % 2.0 % Troponin I 0.10 NG/ML Total Protein 7.2 GM/DL Albumin 3.6 GM/DL Digoxin Level 0.2 NG/ML Urine Opiates Screen NEG Urine Barbiturates Screen NEG Urine Amphetamines Screen NEG Urine Benzodiazepines Screen NEG Urine Cocaine Screen NEG Urine Cannabinoids Screen NEG MDM Medical Decision Making Medical Screen Exam Complete: Yes Emergency Medical Condition: Yes Interpretation(s) Last Impressions Chest X-Ray 02/17/17 1642 Signed Impressions: Service Date/Time: Friday, February 17, 2017 17:01 - CONCLUSION: No acute disease. No significant change has occurred. Yao Renteria MD Laboratory Tests Test 02/17/17 02/17/17 16:50 18:22 White Blood Count 5.2 TH/MM3 Red Blood Count 4.15 MIL/MM3 Hemoglobin 12.0 GM/DL Hematocrit 37.0 % Mean Corpuscular Volume 89.2 FL Mean Corpuscular Hemoglobin 28.8 PG Mean Corpuscular Hemoglobin 32.3 % Concent Red Cell Distribution Width 14.1 % Platelet Count 162 TH/MM3 Mean Platelet Volume 9.3 FL Neutrophils (%) (Auto) 46.2 % Lymphocytes (%) (Auto) 37.9 % Monocytes (%) (Auto) 14.7 % Eosinophils (%) (Auto) 0.7 % Basophils (%) (Auto) 0.5 % Neutrophils # (Auto) 2.4 TH/MM3 Lymphocytes # (Auto) 2.0 TH/MM3 Monocytes # (Auto) 0.8 TH/MM3 Eosinophils # (Auto) 0.0 TH/MM3 Basophils # (Auto) 0.0 TH/MM3 CBC Comment DIFF FINAL Differential Comment Prothrombin Time 11.4 SEC Prothromb Time International 1.0 RATIO Ratio Activated Partial 25.3 SEC Thromboplast Time Sodium Level 139 MEQ/L Potassium Level 4.5 MEQ/L Chloride Level 107 MEQ/L Carbon Dioxide Level 22.9 MEQ/L Anion Gap 9 MEQ/L Blood Urea Nitrogen 10 MG/DL Creatinine 1.03 MG/DL Estimat Glomerular Filtration 96 ML/MIN Rate Random Glucose 84 MG/DL Calcium Level 9.0 MG/DL Magnesium Level 1.5 MG/DL Total Bilirubin 1.4 MG/DL Aspartate Amino Transf 86 U/L (AST/SGOT) Alanine Aminotransferase 38 U/L (ALT/SGPT) Alkaline Phosphatase 51 U/L Total Creatine Kinase 315 U/L Creatine Kinase MB 6.4 NG/ML Creatine Kinase MB % 2.0 % Troponin I 0.10 NG/ML Total Protein 7.2 GM/DL Albumin 3.6 GM/DL Digoxin Level 0.2 NG/ML Urine Opiates Screen NEG Urine Barbiturates Screen NEG Urine Amphetamines Screen NEG Urine Benzodiazepines Screen NEG Urine Cocaine Screen NEG Urine Cannabinoids Screen NEG Vital Signs Date Time Temp Pulse Resp B/P Pulse Ox O2 Delivery O2 Flow Rate FiO2 02/17/17 16:59 98 21 02/17/17 16:38 98.3 78 16 116/77 98 Differential Diagnosis AMI versus what slight abnormality versus illicit drug use versus pleurisy versus pneumonia versus bronchitis versus other Narrative Course Patient's 41-year-old male presenting to the emergency department via EMS for evaluation of chest pain. On exam patient is noted to have expiratory wheezing. Chest pain was relieved after 2 nitroglycerin glycerin sprays per EMS. Labs and imaging ordered and pending, IV access established, patient placed on telemetry monitoring and continuous pulse oximetry. Chest x-ray shows no acute disease CBC is unremarkable Troponin 0.10, previous troponin for approximately one month ago was 1.46. Patient has a trend of elevated troponin dating back to December of this year. Dig level is 0.2 Urine drug screen is negative Coags are unremarkable. His vital signs are stable. Patient did not had a stress test or cardiac cath on his last admission prior medical records. At this time due to urine drug screen being negative for any illicit drug use and patient's complaint of chest pain and past medical history, patient will be placed in the chest pain center. He will be kept nothing by mouth after midnight. Diagnosis Primary Impression: Chest pain Qualified Code: R07.9 - Chest pain, unspecified type Additional Impression: Elevated troponin Admitting Information Admitting Physician Requests: Observation Condition: Stable Ewa Whalen February 17, 2017 17:11
--- NOTE | 2017-02-17 17:13 | RADRPT ---
EXAM DATE/TIME: 02/17/2017 17:01 [facility] COMPARISON: CHEST SINGLE AP, January 14, 2017, 2:14. INDICATIONS : Chest pain. MEDICAL HISTORY : Myocardial infarction. Congestive heart failure. SURGICAL HISTORY : None. ENCOUNTER: Initial ACUITY: 1 day PAIN SCORE: 5/10 LOCATION: Bilateral chest FINDINGS: A single view of the chest demonstrates the lungs to be symmetrically aerated without evidence of mas s, infiltrate or effusion. There is hyperaeration of both lung cruz. The cardiomediastinal contour s are unremarkable. Osseous structures are intact. No significant changes. CONCLUSION: No acute disease. No significant change has occurred. Yao Renteria MD on February 17, 2017 at 17:11 Board Certified Radiologist. This report was verified electronically.
[2017-02-17 17:17] LABS: AUTOMATED NEUTROPHIL # 2.4 TH/MM3 (1.8-7.7); BASOPHIL % 0.5 % (0.0-2.0); EOSINOPHIL % 0.7 % (0.0-4.0); HEMO FLAGS DIFF FINAL; LYMPH % 37.9 % (9.0-44.0); MEAN CELL VOLUME 89.2 FL (80.0-100.0); MEAN CORPUSCULAR HEMOGLOBIN 28.8 PG (27.0-34.0); MEAN CORPUSCULAR HGB CONC 32.3 % (32.0-36.0); MONO % 14.7 % (0.0-8.0); NEUT % 46.2 % (16.0-70.0); PLATELET COUNT 162 TH/MM3 (150-450); RED BLOOD COUNT 4.15 MIL/MM3 (4.50-5.90); RED CELL DISTRIBUTION WIDTH 14.1 % (11.6-17.2); WHITE BLOOD COUNT 5.2 TH/MM3 (4.0-11.0)
[2017-02-17 17:34] LABS: ALT (GPT) 38 U/L (12-78); ANION GAP 9 MEQ/L (5-15); AST (GOT) 86 U/L (15-37); BICARBONATE 22.9 MEQ/L (21.0-32.0); BLOOD UREA NITROGEN 10 MG/DL (7-18); CHLORIDE 107 MEQ/L (98-107); GLOMERULAR FILTRATION RATE 96 ML/MIN (>89); MAGNESIUM 1.5 MG/DL (1.5-2.5); POTASSIUM 4.5 MEQ/L (3.5-5.1); SODIUM (NA) 139 MEQ/L (136-145)
[2017-02-17 17:38] LABS: ALKALINE PHOSPHATASE 51 U/L (45-117); CREATINE KINASE 315 U/L (39-308); TOTAL BILIRUBIN ADULT 1.4 MG/DL (0.2-1.0)
[2017-02-17 17:48] LABS: APTT (PATIENT) 25.3 SEC (24.3-30.1); PROTHROMBIN TIME - PATIENT 11.4 SEC (9.8-11.6)
[2017-02-17 17:51] LABS: CKMB 6.4 NG/ML (0.5-3.6)
[2017-02-17 19:01] LABS: AMPHETAMINE, URINE NEG (NEG); BARBITURATES, URINE NEG (NEG); COCAINE, URINE NEG (NEG)
[2017-02-17 19:55] VITALS: BP 111/62; PULSE 85; RESP 20; O2SAT 98
[2017-02-17 20:37] LABS: CREATINE KINASE 273 U/L (39-308)
[2017-02-17 20:49] LABS: CKMB 5.1 NG/ML (0.5-3.6)
[2017-02-17 22:54] VITALS: BP 117/75; PULSE 69; RESP 20; O2SAT 100
[2017-02-17 23:42] LABS: CREATINE KINASE 261 U/L (39-308)
[2017-02-17 23:54] LABS: CKMB 5.5 NG/ML (0.5-3.6)
[2017-02-18] VITALS (8 sets, daily range): BP systolic 103–119; BP diastolic 59–75; PULSE 70–98; RESP 15–20; TEMP 98–98.3; O2SAT 95–100
--- NOTE | 2017-02-18 03:15 | HHI.HP ---
[facility] Service [facility] Primary Care Physician Dean Santillan DO Admission Diagnosis CHEST PAIN Diagnoses: Chief Complaint: Chest pain Travel History International Travel<30 Days: No Contact w/Intl Traveler <30 Da: No Traveled to Known Affected Are: No History of Present Illness History from patient, ER physician communication, and review of medical records. Patient is somewhat of a poor historian. He is extremely hard of hearing. However he truly is worried about his symptoms. He reports to me that he came to the hospital because he was having chest pain yesterday around 6 PM. He stated that this started after he was smoking 2 cigarettes and then to having a soda. He reports he was nauseous when the pain came. He stated he was feeling like vomiting but did not vomit. Also reports of associated dizziness. He states that he was having similar episodes like these before and had come to hospital several times and was told that nothing was wrong with his heart. He states that he is very worried because of these repeated episodes. Patient thinks that he has had a heart attack last year. However he reports that this pain is different from the pain that he had when he had heart attack but last time. He mostly mentioned about associated nausea and dizziness and bilateral all numbness and tingling episodes when this chest pain came on. He then stated the chest pain was more of his heart skipping a beat and feeling of palpitations. He does report of nausea and also reports of having had diarrhea. He states that his diarrhea has been going on for about a year since he started taking medications for his heart condition. He reports the diarrhea is about 6-10 times a day. No blood in it. Denies any urinary burning or pain on urination. Denies blood in his urine. On review of medical records, patient has had clean coronary angiogram. He was seen by cardiology and his EF was found to be between 20-25%. This was secondary to nonischemic cardiomyopathy. He does report of history of cocaine abuse. However he stated that he has not used it for the past 1 year or so. He has not had an AICD yet. On review of records, it seems that his cardiology team believes patient is noncompliant with medications and that patient has history of cocaine and alcohol abuse which was why they have not put in the AICD. Patient apparently is not even aware of this. Again, he is quite hard of hearing and somewhat of a poor historian and just simply worried about his condition. Review of Systems Except as stated in HPI: all other systems reviewed are Neg Past Family Social History Past Medical History htn chf copd hx of DVT 2015 per chart but pt does not know Allergies: Coded Allergies: Iodine (Verified Allergy, Severe, itching, 02/17/17) Seafood (Verified Allergy, Severe, itching, 02/17/17) Family History brother- from kidney failure mom- from heart attack Social History 3- 4 beers every other day 2-3 cigarrettes a day cocaine abuse before- stopped 1 yr ago, after heart issues Physical Exam Vital Signs Vital Signs Date Time Temp Pulse Resp B/P Pulse Ox O2 Delivery O2 Flow Rate FiO2 02/18/17 02:34 80 02/18/17 00:04 98.0 76 15 119/75 100 02/17/17 22:54 69 20 117/75 100 02/17/17 19:55 85 20 111/62 98 Room Air 02/17/17 17:04 100 Aerosol Mask 02/17/17 17:04 18 100 Aerosol Mask 02/17/17 16:59 98 21 02/17/17 16:38 98.3 78 16 116/77 98 Physical Exam GENERAL: This is a thin gentleman, not in acute distress., in no apparent distress. SKIN: No rashes, ecchymoses or lesions. Cool and dry. HEAD: Atraumatic. Normocephalic. No temporal or scalp tenderness. EYES: No scleral icterus. No injection or drainage. ENT: Nose without bleeding, purulent drainage or septal hematoma. Airway patent. NECK: Trachea midline. No JVD Supple, nontender, no meningeal signs. CARDIOVASCULAR: Regular rate and rhythm without murmurs, gallops, or rubs. RESPIRATORY: Clear to auscultation. Breath sounds equal bilaterally. No wheezes , rales, or rhonchi. GASTROINTESTINAL: Abdomen soft, non-tender, nondistended. No guarding. MUSCULOSKELETAL: Extremities without clubbing, cyanosis, or edema. No calf tenderness. NEUROLOGICAL: Awake and alert. Motor and sensory grossly within normal limits. Normal speech. Laboratory Laboratory Tests Test 02/17/17 02/17/17 02/17/17 02/17/17 16:50 18:22 19:50 22:45 White Blood Count 5.2 Red Blood Count 4.15 Hemoglobin 12.0 Hematocrit 37.0 Mean Corpuscular Volume 89.2 Mean Corpuscular Hemoglobin 28.8 Mean Corpuscular Hemoglobin 32.3 Concent Red Cell Distribution Width 14.1 Platelet Count 162 Mean Platelet Volume 9.3 Neutrophils (%) (Auto) 46.2 Lymphocytes (%) (Auto) 37.9 Monocytes (%) (Auto) 14.7 Eosinophils (%) (Auto) 0.7 Basophils (%) (Auto) 0.5 Neutrophils # (Auto) 2.4 Lymphocytes # (Auto) 2.0 Monocytes # (Auto) 0.8 Eosinophils # (Auto) 0.0 Basophils # (Auto) 0.0 CBC Comment DIFF FINAL Differential Comment Prothrombin Time 11.4 Prothromb Time International 1.0 Ratio Activated Partial 25.3 Thromboplast Time Sodium Level 139 Potassium Level 4.5 Chloride Level 107 Carbon Dioxide Level 22.9 Anion Gap 9 Blood Urea Nitrogen 10 Creatinine 1.03 Estimat Glomerular Filtration 96 Rate Random Glucose 84 Calcium Level 9.0 Magnesium Level 1.5 Total Bilirubin 1.4 Aspartate Amino Transf 86 (AST/SGOT) Alanine Aminotransferase 38 (ALT/SGPT) Alkaline Phosphatase 51 Total Creatine Kinase 315 273 261 Creatine Kinase MB 6.4 5.1 5.5 Creatine Kinase MB % 2.0 Troponin I 0.10 0.11 0.10 Total Protein 7.2 Albumin 3.6 Digoxin Level 0.2 Urine Opiates Screen NEG Urine Barbiturates Screen NEG Urine Amphetamines Screen NEG Urine Benzodiazepines Screen NEG Urine Cocaine Screen NEG Urine Cannabinoids Screen NEG Result Diagram: 02/17/17 1650 02/17/17 165 Imaging Last 48 hours Impressions Chest X-Ray 02/17/17 1642 Signed Impressions: Service Date/Time: Friday, February 17, 2017 17:01 - CONCLUSION: No acute disease. No significant change has occurred. Yao Renteria MD Assessment and Plan Assessment and Plan Impression: Chest painwe'll rule out ACS. However I do believe that upon detailed questioning, patient is more describing episodes where he is experiencing arrhythmias. He is describing associated nausea, dizziness, bilateral upper extremity numbness and tingling, with associated shortness of breath as well. I believe these may be brief episodes of V. tach in a patient with EF of 20%. Elevated troponinchronic. Nonspecific. Poor insight into his medical conditionspartly due to his severe hearing impairment, and partly truly needs education. History of cocaine abusepatient denies current abuse. Urine toxicology is negative. Plan: serial cardiac enzymes and EKGs. Would consult palliative care team to clarify goals of care with the patient and to really involved patient's family members in the care of this young 41 years old with cardiomyopathy. Patient since it is really worried about his medical conditions. Consult cardiology for possible consideration of AICD placement. This man symptoms may be from episodes of V. tach which would explain his chronically elevated troponin every time he comes in to hospital despite negative urine toxicology. He is also describing episodes where he felt dizziness/nausea/ shortness of breath. Resume home meds. However quite difficult to again clarify which home meds have been discontinued previously and which ones he has resumed. Particularly there is question of Xarelto. While in hospital though, I would continue him on Xarelto. We'll need to revisit this with cardiology. Obtain ultrasound of abdomen to rule out symptomatic cholelithiasis/ cholecystitis. Patient is extremely poor historian. Prior imaging studies reveals that he does have cholelithiasis. DVT prophylaxiswith Xarelto. GI prophylaxis on famotidine Discussed Condition With Patient, ER physician, patient's nurse Wojciech Mayers MD February 18, 2017 03:15
[2017-02-18] MEDS ORDERED: ISOSORBIDE MONONITRATE 30 MG TAB PO SCH (07:00)
[2017-02-18] MEDS ORDERED: DIGOXIN 0.25 MG TAB PO SCH (09:00)
[2017-02-18] MEDS ORDERED: PANTOPRAZOLE SOD 20 MG DELAYED RELEASE TAB PO SCH (09:00)
[2017-02-18] MEDS ORDERED: FAMOTIDINE 20 MG TAB PO SCH (09:00)
[2017-02-18] MEDS ORDERED: PANTOPRAZOLE SOD 40 MG DELAYED RELEASE TAB PO SCH (09:00)
[2017-02-18] MEDS ORDERED: RAMIPRIL 5 MG CAP PO SCH (09:00)
[2017-02-18] MEDS ORDERED: FUROSEMIDE 40 MG TAB PO SCH (09:00)
[2017-02-18] MEDS ORDERED: POTASSIUM CHLORIDE 10 MEQ CONTROLLED RELEASE TAB PO SCH (09:00)
[2017-02-18] MEDS ORDERED: CARVEDILOL 12.5 MG TAB PO SCH (09:00)
--- NOTE | 2017-02-18 09:05 | MB ---
cc: DAWN BRITT MD DATE OF CONSULTATION 02/18/2017 REASON FOR CONSULTATION Chest pain and consideration for ICD. HISTORY OF PRESENT ILLNESS Mr. Valdivia is a 41-year-old man who is a very poor historian. He has had multiple hospitalizations already this year and has seen over [id number] cardiologists for his nonischemic cardiomyopathy by cardiac catheterization in 2015. The patient does report that he has abstained from cocaine over the last month. He reports that he has had problems with his stomach in the past as well. He has not apparently had any other noncardiac workup for his chest pain. FAMILY HISTORY Positive for CAD. SOCIAL HISTORY The patient does smoke and has a history of polysubstance abuse. REVIEW OF SYSTEMS Except as mentioned in HPI, all 12 systems are negative. PAST MEDICAL HISTORY Significant for - 1. Hypertension. 2. CHF. 3. COPD. 4. DVT. ALLERGIES IODINE. SEAFOOD. PHYSICAL EXAMINATION VITAL SIGNS: 98.3, 72, 20, 103/68 IN GENERAL: He is a well-appearing man who is in no apparent distress. NECK: His neck is free from JVD. LUNGS: The lungs are bilaterally clear to auscultation. CARDIOVASCULAR EXAMINATION: He has a normal S1 and S2. I did not appreciate any murmurs, rubs or gallops. ABDOMEN: Soft. EXTREMITIES: Free from edema. Telemetry shows normal sinus rhythm. LABORATORY FINDINGS Significant for a hemoglobin of 12. He has serial troponins of 0.01/0.11/0.1/0.07. IMPRESSIONS Nonischemic cardiomyopathy - The patient does have a history of the same. His most recent EF in December of 2016 was 20-25% by echocardiogram. It is not clear if he is maintaining his outpatient regimen. I would continue the patient with medical management. The patient would need to have at least three months of a optimal medical management and abstinence from cocaine prior to evaluation for his EF. The patient has not even gone 90 days at this point. Additionally, recent data shows questionable benefit for nonischemic cardiomyopathies in regard to ICDs. As well, the patient has not been able to establish himself as a complaint patient with complaint cardiology followup. This also would be essential prior to putting in an ICD. CHF - The patient does have a history of heart failure. I suspect the minor elevation in the troponins is related to his ongoing cardiomyopathy and chronic heart failure. Again, optimal medical management that would include the carvedilol and LLOYD inhibitor which he is on. I do not see any indication for the digoxin and would stop this as this could exacerbate dysrhythmia. History of DVT - I do not see any indication for long-term continuing on Xarelto. I will be available on a p.r.n. basis. Joy Guevara/SSB /8:32 AM /8:55 AM
--- NOTE | 2017-02-18 09:44 | RADRPT ---
EXAM DATE/TIME: 02/18/2017 08:27 [facility] COMPARISON: US LEG BILATERAL VENOUS DOPPLER, December 16, 2016, 10:39. INDICATIONS : Abdominal pain. MEDICAL HISTORY : Myocardial infarction. Congestive heart failure. Cirrhosis. Cardiomyopathy. HTN. PHOEBE. Heart attack. SURGICAL HISTORY : Exploratory laproscopy. Oral surgery, teeth extraction. Cardiac cath. ENCOUNTER: Initial ACUITY: 2 days PAIN SCORE: 3/10 LOCATION: Bilateral abdomen. MEASUREMENTS: LIVER: 14.1 cm length COMMON DUCT: 3 mm RIGHT KIDNEY: 9.6 x 3.6 x 4.9 cm LEFT KIDNEY: 8.4 x 4.5 x 4.5 cm SPLEEN: 6.6 cm length AORTA: 1.7cm maximal FINDINGS: LIVER: Normal echotexture without focal lesion or ductal dilatation. COMMON DUCT: No intraluminal mass or stone visualized. GALLBLADDER: The examination demonstrates a 5 mm stone in the dependent portion of the gallbladder. There is no ga llbladder wall thickening or pericholecystic fluid. PANCREAS: The visualized portions are within normal limits. RIGHT KIDNEY: No hydronephrosis, stone or mass. LEFT KIDNEY: No hydronephrosis, stone or mass. SPLEEN: No focal lesion. AORTA: Non aneurysmal. IVC: Within normal limits. CONCLUSION: 1. Punctate gallstone the gallbladder. Exam is otherwise unremarkable. Carlos Aguila MD on February 18, 2017 at 9:40 Board Certified Radiologist. This report was verified electronically.
--- NOTE | 2017-02-18 11:35 | PD.CONS ---
Consult Service Palliative Care Consult Requested By Dr. Mayers . Primary Care Physician Dean Santillan DO . Reason for Consultation a. To assist with evaluation and management of symptoms including: Chest pain, anxiety b. To assist medical decision maker(s) with: better understanding of current medical conditions; weighing benefits/burdens of medical treatment options; making medical treatment decisions. . HPI History of Present Illness This 41-year-old male, with a past history of nonischemic cardiomyopathy/NSTEMI , polysubstance abuse, depression, and a history of chronic back pain, presented to the hospital on 02/17/17 complaining of chest pain. The patient has had numerous emergency department visits and several inpatient hospitalizations over the past 13 years here,, and he has had positive urine drug screen test for cocaine on several occasions (most recently just last month ), although he tells me "I quit using that a long time ago." He now had chest pain again, anterior in location, constant, dull, not associated with nausea or diaphoresis. The pain subsided after he was admitted, and he has not had additional chest pain, and he hopes to go home soon. He has had chronic back pain at times, but says it was not bad recently. He has underlying anxiety and depression, but feels those are unchanged in recent months. Palliative Care was consulted to assist with symptom management, and to enter into discussions with the patient regarding his current medical illnesses, prognosis, and the benefits and burdens of the various treatment options. . Function/Cognitive Trajectory The patient was functioning independently prior to this hospitalization. He was providing some assistance and caregiving for his stepfather who he reports has cancer. . Review of Systems Constitutional: COMPLAINS OF: Weight loss Endocrine: DENIES: Polyuria Eyes: DENIES: Eye inflammation Ears, nose, mouth, throat: COMPLAINS OF: Hearing loss, DENIES: Throat pain, Hoarseness Respiratory: COMPLAINS OF: Wheezing (occasionally), DENIES: Shortness of breath Cardiovascular: COMPLAINS OF: Chest pain, DENIES: Palpitations, Syncope, Dyspnea on Exertion, Lower Extremity Edema Gastrointestinal: DENIES: Constipation, Diarrhea, Vomiting Genitourinary: DENIES: Hematuria Musculoskeletal: COMPLAINS OF: Back pain (chronic), DENIES: Neck pain Integumentary: DENIES: Rash Hematologic/Lymphatics: DENIES: Lymphadenopathy Immunologic/Allergic: DENIES: Urticaria Neurologic: DENIES: Abnormal gait, Localized weakness, Seizures Psychiatric: COMPLAINS OF: Anxiety, Depression, DENIES: Hallucinations Past Family Social History Coded Allergies: Iodine (Verified Allergy, Severe, itching, 02/17/17) Seafood (Verified Allergy, Severe, itching, 02/17/17) Past Medical History * Chest pain * Polysubstance abuse (marijuana, cocaine, alcohol, cigarettes), most recent positive test for cocaine January 2017 * Nonischemic cardiomyopathy, CHF -- cardiac cath 2014 with no significant coronary disease * Hypertension * COPD * History of DVT 2014 * Chronic back pain * History of hepatic failure * History of pneumonia * History of pancreatitis * Depression, anxiety * Hearing loss * GERD . Past Surgical History * Heart cath 2014 (no significant CAD) * Exploratory lap * Oral surgery . Reported Medications Pepcid (Famotidine) 20 Mg Tab 20 Mg PO BID Coreg (Carvedilol) 12.5 Mg Tab 12.5 Mg PO BID Xarelto (Rivaroxaban) 20 Mg Tab 20 Mg PO HS Furosemide 40 Mg Tab 40 Mg PO BID Omeprazole 20 Mg Tab 20 Mg PO DAILY Mirtazapine ODT (Mirtazapine) 30 Mg Tab 30 Mg PO HS Ramipril 5 Mg Cap 5 Mg PO DAILY Quetiapine (Quetiapine Fumarate) 25 Mg Tab 25 Mg PO HS Isosorbide Mononitrate ER (Isosorbide Mononitrate) 30 Mg Tahir 30 Mg PO DAILY Klor-Con 10 (Potassium Chloride) 10 Meq Tab 20 Meq PO DAILY Digoxin 0.25 Mg Tab 0.25 Mg PO DAILY . Current Medications Medications (Trade) Dose Ordered Sig/Talib Route Start Time Stop Time Status Last Admin (NS Flush) 2 ml UNSCH PRN IVF 02/17/17 16:45 (Coreg) 12.5 mg BID PO 02/18/17 09:00 (Pepcid) 20 mg BID PO 02/18/17 09:00 02/18/17 08:16 (Lasix) 40 mg BID PO 02/18/17 09:00 02/18/17 08:16 (Remeron Soltab Odt) 30 mg HS PO 02/18/17 21:00 (KCl) 20 meq DAILY PO 02/18/17 09:00 02/18/17 08:16 (SEROquel) 25 mg HS PO 02/18/17 21:00 (Altace) 5 mg DAILY PO 02/18/17 09:00 (Protonix) 20 mg DAILY PO 02/18/17 09:00 02/18/17 08:16 Family History The patient's mother of an IA a few years ago, and his father with "a cancer related to smoking," diabetes, and hypertension just a couple months ago. One grandmother had an IA, and one brother of end-stage renal disease. . Substance Use Tobacco: One half pack per day for many years Alcohol: Beer on a regular basis, but not always daily Prescription med abuse: None reported Illicits: Patient uses marijuana intermittently. Although he says he stopped using cocaine "a long time ago," is most recent positive test was just a month ago. He has numerous positive urine drug screens with cocaine in this hospital over the past several years. . Psychosocial History The patient was born and raised in this area, and he says he has an apartment but is currently living with the man who was to his mother prior to his mother's . He provides some assistance and caregiving for that stepfather (Flakito Nagel) who the patient reports has some type of cancer. 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 He has never been , but has one 17-year-old daughter who lives locally with her mother. . Spiritual/Cultural Factors The patient reports that spirituality is important for him, and that he attends the [facility] nearly every week. He does not want hospital surgical supervisor visits. . Living Will: Never completed Health Care Surrogate: Copy in medical record Durable Power of Barrel Line Operator: Never completed Date completed: Completed 02/18/17 . Health Care Surrogate(s): co-HCS's: Kate Miranda, Tom Walls, and Nirmala Wood . Today's verbally stated goals: The patient does want ongoing aggressive care, including FULL CODE and mechanical ventilation. He says he would not want to be "kept alive for a long time on machines," but is uncertain as to what that time frame is. . Ethical and Legal Issues There are no ethical issues that would impact his care or decision-making at this time. The patient has capacity for decision-making at this time. He now designates the 3 people as co-healthcare surrogate's: Kateevan Miranda, Nirmala Wood, and Tom Walls. . Physical Exam Vital Signs Date Time Temp Pulse Resp B/P Pulse Ox O2 Delivery O2 Flow Rate FiO2 02/18/17 11:14 98.0 98 95 02/18/17 10:29 20 106/59 97 02/18/17 08:00 70 02/18/17 07:29 98.3 72 20 103/68 96 02/18/17 04:24 98.1 78 16 105/66 100 02/18/17 03:29 98 21 02/18/17 02:34 80 02/18/17 00:04 98.0 76 15 119/75 100 02/17/17 22:54 69 20 117/75 100 02/17/17 19:55 85 20 111/62 98 Room Air 02/17/17 17:04 100 Aerosol Mask 02/17/17 17:04 18 100 Aerosol Mask 02/17/17 16:59 98 21 02/17/17 16:38 98.3 78 16 116/77 98 Exam CONSTITUTIONAL/GENERAL: This is an adequately nourished patient, in no apparent distress, somewhat hard of hearing. TUBES/LINES/DRAINS: Peripheral IV SKIN: No jaundice, rashes, or lesions. No wounds seen anteriorly. Skin temperature appropriate. Not diaphoretic. HEAD: Atraumatic. Normocephalic. EYES: Pupils equal and round and reactive. Extraocular motions intact. No scleral icterus. No injection or drainage. Fundi not examined. ENT: Hearing somewhat diminished. Nose without bleeding or purulent drainage. Throat without visible erythema, exudates, masses, or lesions. NECK: Trachea midline. Supple, nontender. No palpable thyroid enlargement or nodularity. CARDIOVASCULAR: Regular rate and rhythm without murmurs, gallops, or rubs. No JVD. Peripheral pulses symmetric. RESPIRATORY/CHEST: Symmetric, unlabored respirations. Clear to auscultation. Breath sounds equal bilaterally. No wheezes, rales, or rhonchi. GASTROINTESTINAL: Abdomen soft, non-tender, nondistended. No hepato-splenomegaly , or palpable masses. No guarding. Bowel sounds present. GENITOURINARY: Without palpable bladder distension. MUSCULOSKELETAL: Extremities without clubbing, cyanosis, or edema. No joint tenderness or effusion noted. No calf tenderness. No mottling or clubbing. LYMPHATICS: No palpable cervical or supraclavicular adenopathy. NEUROLOGICAL: Awake and alert. Motor and sensory grossly within normal limits. Follows commands. Cognitively sharp. Moves all extremities. PSYCHIATRIC: No obvious anxiety/depression. no apparent hallucinations or other psychotic thought process. . Diagnostic Tests Laboratory Laboratory Tests Test 02/17/17 02/17/17 02/17/17 02/17/17 16:50 18:22 19:50 22:45 White Blood Count 5.2 TH/MM3 (4.0-11.0) Red Blood Count 4.15 MIL/MM3 (4.50-5.90) Hemoglobin 12.0 GM/DL (13.0-17.0) Hematocrit 37.0 % (39.0-51.0) Mean Corpuscular Volume 89.2 FL (80.0-100.0) Mean Corpuscular Hemoglobin 28.8 PG (27.0-34.0) Mean Corpuscular Hemoglobin 32.3 % Concent (32.0-36.0) Red Cell Distribution Width 14.1 % (11.6-17.2) Platelet Count 162 TH/MM3 (150-450) Mean Platelet Volume 9.3 FL (7.0-11.0) Neutrophils (%) (Auto) 46.2 % (16.0-70.0) Lymphocytes (%) (Auto) 37.9 % (9.0-44.0) Monocytes (%) (Auto) 14.7 % (0.0-8.0) Eosinophils (%) (Auto) 0.7 % (0.0-4.0) Basophils (%) (Auto) 0.5 % (0.0-2.0) Neutrophils # (Auto) 2.4 TH/MM3 (1.8-7.7) Lymphocytes # (Auto) 2.0 TH/MM3 (1.0-4.8) Monocytes # (Auto) 0.8 TH/MM3 (0-0.9) Eosinophils # (Auto) 0.0 TH/MM3 (0-0.4) Basophils # (Auto) 0.0 TH/MM3 (0-0.2) CBC Comment DIFF FINAL Differential Comment Prothrombin Time 11.4 SEC (9.8-11.6) Prothromb Time International 1.0 RATIO Ratio Activated Partial 25.3 SEC Thromboplast Time (24.3-30.1) Sodium Level 139 MEQ/L (136-145) Potassium Level 4.5 MEQ/L (3.5-5.1) Chloride Level 107 MEQ/L (98-107) Carbon Dioxide Level 22.9 MEQ/L (21.0-32.0) Anion Gap 9 MEQ/L (5-15) Blood Urea Nitrogen 10 MG/DL (7-18) Creatinine 1.03 MG/DL (0.60-1.30) Estimat Glomerular Filtration 96 ML/MIN (>89) Rate Random Glucose 84 MG/DL (74-106) Calcium Level 9.0 MG/DL (8.5-10.1) Magnesium Level 1.5 MG/DL (1.5-2.5) Total Bilirubin 1.4 MG/DL (0.2-1.0) Aspartate Amino Transf 86 U/L (15-37) (AST/SGOT) Alanine Aminotransferase 38 U/L (12-78) (ALT/SGPT) Alkaline Phosphatase 51 U/L (45-117) Total Creatine Kinase 315 U/L 273 U/L 261 U/L (39-308) (39-308) (39-308) Creatine Kinase MB 6.4 NG/ML 5.1 NG/ML 5.5 NG/ML (0.5-3.6) (0.5-3.6) (0.5-3.6) Creatine Kinase MB % 2.0 % (0.0-4.0) Troponin I 0.10 NG/ML 0.11 NG/ML 0.10 NG/ML (0.02-0.05) (0.02-0.05) (0.02-0.05) Total Protein 7.2 GM/DL (6.4-8.2) Albumin 3.6 GM/DL (3.4-5.0) Digoxin Level 0.2 NG/ML (0.8-2.0) Urine Opiates Screen NEG (NEG) Urine Barbiturates Screen NEG (NEG) Urine Amphetamines Screen NEG (NEG) Urine Benzodiazepines Screen NEG (NEG) Urine Cocaine Screen NEG (NEG) Urine Cannabinoids Screen NEG (NEG) Test 02/18/17 04:33 Total Creatine Kinase 226 U/L (39-308) Troponin I 0.07 NG/ML (0.02-0.05) Result Diagram: 02/17/17 1650 02/17/17 1650 Imaging Last Impressions Abdomen Ultrasound 02/18/17 0000 Signed Impressions: Service Date/Time: Saturday, February 18, 2017 08:27 - CONCLUSION: 1. Punctate gallstone the gallbladder. Exam is otherwise unremarkable. Carlos Aguila MD Chest X-Ray 02/17/17 1642 Signed Impressions: Service Date/Time: Friday, February 17, 2017 17:01 - CONCLUSION: No acute disease. No significant change has occurred. Yao Renteria MD Patient/Family Conference Present at Family Conference: Only the patient . Family Conference Time (mins): 44 Family Conference Location: Bedside Issues Discussed: * Palliative care role, purpose, approach * Additional medical, psychosocial, and spiritual history * Patients general health, functional status, and cognitive changes in the months leading up to the current hospitalization * Patient/family understanding of the current medical problems * Patient/family understanding of prognosis * Patients goals of care as best understood from advance directives and/or conversations and/or values * Current medical treatment options and benefits/burdens of those options * Likely scenarios comparing ongoing aggressive care with a transition to comfort measures only * Questions answered to the best of my ability * Palliative care contact information provided . Assessment and Plan Disease Oriented Problem List: (1) chest pain (2) polysubstance abuse (cocaine, marijuana, alcohol, cigarettes), most recent positive test for cocaine January 2017 (3) nonischemic cardiomyopathy, CHF -- cardiac cath 2014 with no significant CAD (4) COPD (5) history of pancreatitis (6) history of DVT 2014 (7) GERD (8) history of hepatic failure (9) anxiety (10) hearing loss (11) history of pneumonia (12) hypertension (13) depression, anxiety (14) chronic back pain Symptom Scale: (1) pain 0-10 Scale: 0 (2) anxiety 0-10 Scale: 1 Pertinent Non-Medical Issues Psychosocial: Unmarried, living with and assisting stepfather Flakito Nagel, 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 Polysubstance abuse. Spiritual: The patient reports that spirituality is important for him, and that he attends the [employer] [facility] nearly every week. He does not want hospital surgical supervisor visits. Legal: The patient has capacity for decision-making at this time. He now designates the 3 people as co-healthcare surrogate's: Kate Miranda, Nirmala Wood, and Tom Walls. Ethical issues impacting care: None . Important Contacts Nirmalasubhash Wood ("godmother") [phone] Alessio Titi ("like a stepfather") in [place] [phone] . Prognosis The patient has a significant cardiomyopathy, with a recent echo indicating 20- 25% EF, and he has been using cocaine as recently as January 2017. He continues to smoke cigarettes, and he is at risk for future cardiac events, making his overall prognosis guarded. . Code Status: Full Code Plan * FULL CODE * DECISION-MAKING: The patient has capacity for decision-making at this time. He now designates the 3 people as co-healthcare surrogate's: Kate Miranda, Nirmala Wood, and Tom Walls. * GOALS: The patient requests continued aggressive care, including FULL CODE and mechanical ventilation if needed. He says he would not want to be "kept alive on machines for a long time," but he is not certain what that timeframe would be. * SYMPTOMS: His pain seems to have subsided, and even his chronic back pain is not troublesome at this time. His anxiety and depression are stable over recent months. * Co-HCS's established and documented, form completed. * Palliative Care will follow the patient has needed during this hospitalization. . Time Spent Total Floor Time (mins): 76 Face to Face Time (mins): 55 >50% Counseling/Coord of Care: Yes Thank you for the opportunity to participate in the care of Mr. Valdivia. Attestation To help prompt me to consider important information that might be impacting today's encounter and assessment, information from prior notes written by myself or my colleagues may have been "brought forward" into today's note. My signature on this note, however, is an attestation that I personally performed the exam, history, and/or decision-making noted today, and, unless otherwise indicated, the interactions with patient, family, and staff as well as the review of records all occurred today. I also attest that the listed assessment and stated plan reflect my best clinical judgment today based on the combination of historical information, prior notes, and today's exam/ interactions. When time spent is documented, it refers only to time spent today by the signer, or if indicated, combined time spent today by collaborating physician/nurse practitioner. Mi Segal MD February 18, 2017 11:35
--- NOTE | 2017-02-18 12:43 | HHI.PR ---
Subjective Remarks Follow up chest pain. Patient denies any chest pain, sob, fever or chills. States he feels good. Tolerated breakfast. Encouraged patient to stop all smoking, drinking and recreational drugs. He states he has quit cocaine already. Objective Vitals Vital Signs Date Time Temp Pulse Resp B/P Pulse Ox O2 Delivery O2 Flow Rate FiO2 02/18/17 11:14 98.0 98 95 02/18/17 10:29 20 106/59 97 02/18/17 08:00 70 02/18/17 07:29 98.3 72 20 103/68 96 02/18/17 04:24 98.1 78 16 105/66 100 02/18/17 03:29 98 21 02/18/17 02:34 80 02/18/17 00:04 98.0 76 15 119/75 100 02/17/17 22:54 69 20 117/75 100 02/17/17 19:55 85 20 111/62 98 Room Air 02/17/17 17:04 100 Aerosol Mask 02/17/17 17:04 18 100 Aerosol Mask 02/17/17 16:59 98 21 02/17/17 16:38 98.3 78 16 116/77 98 Result Diagram: 02/17/17 1650 02/17/17 1650 Imaging Last Impressions Abdomen Ultrasound 02/18/17 0000 Signed Impressions: Service Date/Time: Saturday, February 18, 2017 08:27 - CONCLUSION: 1. Punctate gallstone the gallbladder. Exam is otherwise unremarkable. Carlos Aguila MD Chest X-Ray 02/17/17 1642 Signed Impressions: Service Date/Time: Friday, February 17, 2017 17:01 - CONCLUSION: No acute disease. No significant change has occurred. Yao Renteria MD Objective Remarks GENERAL: thin male in NAD SKIN: Warm and dry. HEAD: Atraumatic. Normocephalic. EYES: Pupils equal and round. No scleral icterus. No injection or drainage. ENT: No nasal bleeding or discharge. Mucous membranes pink and moist. NECK: Trachea midline. No JVD. CARDIOVASCULAR: Regular rate and rhythm. RESPIRATORY: No accessory muscle use. Clear to auscultation. Breath sounds equal bilaterally. GASTROINTESTINAL: Abdomen soft, non-tender, nondistended. Hepatic and splenic margins not palpable. MUSCULOSKELETAL: Extremities without clubbing, cyanosis, or edema. No obvious deformities. NEUROLOGICAL: Awake and alert. Motor grossly within normal limits. Normal speech. Medications and IVs Current Medications Medications (Trade) Dose Ordered Sig/Talib Route Start Time Stop Time Status Last Admin (NS Flush) 2 ml UNSCH PRN IVF 02/17/17 16:45 (Coreg) 12.5 mg BID PO 02/18/17 09:00 (Pepcid) 20 mg BID PO 02/18/17 09:00 02/18/17 08:16 (Lasix) 40 mg BID PO 02/18/17 09:00 02/18/17 08:16 (Remeron Soltab Odt) 30 mg HS PO 02/18/17 21:00 (KCl) 20 meq DAILY PO 02/18/17 09:00 02/18/17 08:16 (SEROquel) 25 mg HS PO 02/18/17 21:00 (Altace) 5 mg DAILY PO 02/18/17 09:00 (Protonix) 20 mg DAILY PO 02/18/17 09:00 02/18/17 08:16 A/P Assessment and Plan Chest pain, acute on chronic Troponin .10-->.11-->.07 -consult cardiology, cardiology recommend d/c Imdur and digoxin, and to stop recreational drugs -Discussed which medications to discontinue, and that a list will be provided for him, and patient verbalizes understanding -Palliative care consulted, health care surrogate set up Tobacco/ cocaine abuse -Encouraged to quit smoking, drinking and all recreational drugs, patient verbalizes understanding CHF, EF 20-25% -Cont home coreg DVT hx -Will D/C xerolto, patient had dvt two years ago, recent us shows no dvt. Patient verbalizes understanding. GERD, chronic -Cont home medications famotidine. DVT prophylaxis: SCDs GI prophylaxis on famotidine Discharge patient to home Condition on discharge: Stable Heart health Diet as tolerated Ad Pearl activity Rx written: none Follow-up with primary care physician in 2-3 days. Refrain from smoking, drinking, and recreational drugs. Stop taking Digoxin, Imdur and Xarelto per cardiology. Discharge Planning today Caren Shore February 18, 2017 12:43
--- NOTE | 2017-02-18 14:47 | EKG ---
Date Performed: 02/17/2017 Time Performed: 16:45:35 PTAGE: 41 years EKG: Sinus rhythm POSSIBLE RIGHT ATRIAL ENLARGEMENT LEFT ATRIAL ENLARGEMENT LEFT ANTERIOR FASCICULAR BLOCK SEPTAL MYOC ARDIAL INFARCTION MODERATE T-WAVE ABNORMALITY, CONSIDER LATERAL ISCHEMIA ABNORMAL ECG Compared to samson or tracing no significant change PREVIOUS TRACING : 01/25/17 DOCTOR: Randy Ames Interpretating Date/Time 02/18/2017 14:46:28
--- NOTE | 2017-02-18 14:47 | EKG ---
Date Performed: 02/17/2017 Time Performed: 20:34:43 PTAGE: 41 years EKG: Sinus rhythm LEFT ATRIAL ENLARGEMENT LEFT ANTERIOR FASCICULAR BLOCK SEPTAL MYOCARDIAL INFARCTION MODERATE T-WAVE ABNORMALITY, CONSIDER LATERAL ISCHEMIA ABNORMAL ECG Compared to prior tracing no significant change PREVIOUS TRACING : 02/17/2017 16.45 DOCTOR: Randy Ames Interpretating Date/Time 02/18/2017 14:46:40
--- NOTE | 2017-02-18 14:51 | EKG ---
Date Performed: 02/17/2017 Time Performed: 22:48:31 PTAGE: 41 years EKG: Sinus rhythm POSSIBLE LEFT ATRIAL ENLARGEMENT MARKED LEFT AXIS DEVIATION ANTEROSEPTAL MYOCARDIAL INFARCTION ST el evation in the late precordial leads though it varies slightly from EKG to EKG, likely due to lead pl acement. There does not appear to be significant differences between EKGs with regard to the degree o f ST elevation. Given this, this EKG is unlikely to represent an acute OK.Clinical correlation requir ed. PREVIOUS TRACING : 02/17/2017 22.46 DOCTOR: Randy Ames Interpretating Date/Time 02/18/2017 14:49:32
--- NOTE | 2017-02-18 14:51 | EKG ---
Date Performed: 02/18/2017 Time Performed: 06:29:33 PTAGE: 41 years EKG: Sinus rhythm POSSIBLE LEFT ATRIAL ENLARGEMENT MARKED LEFT AXIS DEVIATION ANTEROSEPTAL MYOCARDIAL INFARCTION Since PREVIOUS TRACING , no significant change noted PREVIOUS TRACIN02/17/2017 20.34 DOCTOR: Randy Ames Interpretating Date/Time 02/18/2017 14:50:11
[2017-02-18] MEDS ORDERED: QUEtiapine FUMARATE 25 MG TAB PO SCH (21:00)
[2017-02-18] MEDS ORDERED: MIRTAZAPINE ODT 30 MG TAB PO SCH (21:00)
[2017-02-18] MEDS ORDERED: RIVAROXABAN 20 MG TAB PO SCH (21:00)
== END 2017-02-18 15:32 | disposition home or self-care (01) ==
LOC: NEPC 16:26 → NEDA 19:30 → NEPHCDU 23:56
PROVIDERS: ADMIT Internal Medicine; ATTEND Internal Medicine
DX: R07.9 Chest pain, unspecified (principal); I42.9 Cardiomyopathy, unspecified; I50.9 Heart failure, unspecified; I11.0 Hypertensive heart disease with heart failure; I25.2 Old myocardial infarction; F41.9 Anxiety disorder, unspecified; F32.9 Major depressive disorder, single episode, unspecified; J44.9 Chronic obstructive pulmonary disease, unspecified; F14.10 Cocaine abuse, uncomplicated; F12.10 Cannabis abuse, uncomplicated; K21.9 Gastro-esophageal reflux disease without esophagitis; F17.200 Nicotine dependence, unspecified, uncomplicated; R11.0 Nausea; G89.29 Other chronic pain; K74.60 Unspecified cirrhosis of liver; M54.9 Dorsalgia, unspecified; H91.90 Unspecified hearing loss, unspecified ear; Z86.718 Personal history of other venous thrombosis and embolism; Z79.01 Long term (current) use of anticoagulants; Z87.01 Personal history of pneumonia (recurrent)
CPT/HCPCS: 71010; 76700; 80053; 80162; 80307; 82550; 82552; 83735; 84484; 85025; 85610; 85730; 93005; 94640; 94664; 96361; 96374; 99285; G0378; J2930; J7040

== ENCOUNTER 2017-03-11 07:29 | Observation (INO) | payer OTHER ==
[2017-03-11] VITALS (9 sets, daily range): BP systolic 108–122; BP diastolic 67–80; PULSE 70–93; RESP 16–18; TEMP 97.5–98.9; O2SAT 98–100
[~2017-03-11] VITALS: Ht 175.3 cm; Wt 54.5 kg
[~2017-03-11 07:29] MED LIST changes: -ASPI81TA11 PO; -DIGO0.25 PO; -ISOS30TA3 PO; -ZOFR4TAB3 SL
[2017-03-11] MEDS ORDERED: ISOS30TA3 PO (07:41)
[2017-03-11] MEDS ORDERED: XARE20TA PO (07:41)
[2017-03-11] MEDS ORDERED: DIGO0.25 PO (07:41)
[2017-03-11] MEDS ORDERED: SODIUM CHLORIDE 0.9% FLUSH 10 ML FLUSH IVF PRN (07:45)
--- NOTE | 2017-03-11 07:58 | RADRPT ---
EXAM DATE/TIME: 03/11/2017 07:40 [facility] COMPARISON: CHEST SINGLE AP, February 17, 2017, 17:01. INDICATIONS : Chest pain. MEDICAL HISTORY : Myocardial infarction. Congestive heart failure. Cirrhosis. Cardiomyopathy. HTN.PHOEBE. Heart attack. SURGICAL HISTORY : Exploratory laproscopy. Oral surgery, teeth extraction. Cardiac cath ENCOUNTER: Initial ACUITY: 2 days PAIN SCORE: 3/10 LOCATION: Bilateral chest FINDINGS: The heart size is normal. The lungs are hyperinflated. No consolidation is seen. There are possible s mall calcified granulomas in the right upper lung. A significant effusion is not seen. CONCLUSION: Hyperinflated lungs presumably from COPD. Satya Feldman MD on March 11, 2017 at 7:56 Board Certified Radiologist. This report was verified electronically.
[2017-03-11] MEDS ORDERED: ONDANSETRON HCL 4 MG/2 ML VIAL IV PUSH ONE (08:00)
[2017-03-11 08:23] LABS: AUTOMATED NEUTROPHIL # 1.6 TH/MM3 (1.8-7.7); BASOPHIL % 0.8 % (0.0-2.0); EOSINOPHIL # 0.1 TH/MM3 (0-0.4); EOSINOPHIL % 1.7 % (0.0-4.0); HEMATOCRIT 37.2 % (39.0-51.0); HEMO FLAGS DIFF FINAL; LYMPH % 58.8 % (9.0-44.0); LYMPHOCYTE # 3.2 TH/MM3 (1.0-4.8); MEAN CELL VOLUME 89.3 FL (80.0-100.0); MEAN CORPUSCULAR HGB CONC 33.6 % (32.0-36.0); MONO % 9.4 % (0.0-8.0); NEUT % 29.3 % (16.0-70.0); PLATELET COUNT 133 TH/MM3 (150-450); RED BLOOD COUNT 4.16 MIL/MM3 (4.50-5.90); RED CELL DISTRIBUTION WIDTH 13.9 % (11.6-17.2); WHITE BLOOD COUNT 5.4 TH/MM3 (4.0-11.0)
--- NOTE | 2017-03-11 08:23 | PD ---
HPI Chief Complaint: Chest Pain Time Seen by Provider: 07:37 Travel History International Travel<30 days: No Contact w/Intl Traveler<30days: No Traveled to known affect area: No History of Present Illness HPI 41-year-old male with history of hypertension, cardiomyopathy, previous [place], chronic liver disease, CHF, presents to the ER today for 1 day history of left- sided sharp chest pains which he currently rates at a 7 out of 10. He reports some nausea and shortness of breath in relation to this. He denies any fevers, coughing, vomiting, or any other symptoms. He does not know any exacerbating or alleviating factors. 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) Endocrine: No Gastrointestinal Disorders: Yes (ELEVATED LIVER ENZYMES) GERD: Yes Glaucoma: No Genitourinary: Yes Hepatitis: No Hiatal Hernia: No Heparin Induced Thrombocytopen: No Hypertension: Yes Immune Disorder: No Implanted Vascular Access Dvce: No Musculoskeletal: Yes Neurologic: No Psychiatric: Yes Reproductive: No Respiratory: No Immunizations Current: No Myocardial Infarction: Yes Pneumonia: Yes Radiation Therapy: No Sickle Cell Disease: No Thyroid Disease: No Ulcer: Yes Past Surgical History Abdominal Surgery: Yes (EXPLORATORY LAP) AICD: No Appendectomy: No Arteriovenous Shunt: No Body Medical Devices: pacemaker Cholecystectomy: No Coronary Artery Bypass Graft: No Ear Surgery: No Endocrine Surgery: No Eye Surgery: No Gynecologic Surgery: No Hysterectomy: No Insulin Pump: No Joint Replacement: No Neurologic Surgery: No Oral Surgery: Yes (TEETH EXTRACTIONS) Pacemaker: No Other Surgery: No Family History Family Myocardial Infarction: Yes (MOTHER/GRANDMOTHER) Social History Alcohol Use: Yes (beer / liquor every day last drink yesterday ) Tobacco Use: Yes (1/4 pack per day) Substance Use: Yes (COCAINE + 1 MONTH AGO) Allergies-Medications (Allergen,Severity, Reaction): Coded Allergies: Iodine (Verified Allergy, Severe, itching, 6/6/17) Seafood (Verified Allergy, Severe, itching, 03/11/17) Reported Meds & Prescriptions Reported Meds & Active Scripts Active Pepcid (Famotidine) 20 Mg Tab 20 Mg PO BID Coreg (Carvedilol) 12.5 Mg Tab 12.5 Mg PO BID Reported Xarelto (Rivaroxaban) 20 Mg Tab 20 Mg PO DAILY Isosorbide Mononitrate ER (Isosorbide Mononitrate) 30 Mg Tahir 30 Mg PO DAILY Digoxin 0.25 Mg Tab 0.25 Mg PO DAILY Furosemide 40 Mg Tab 40 Mg PO BID Omeprazole 20 Mg Tab 20 Mg PO DAILY Mirtazapine ODT (Mirtazapine) 30 Mg Tab 30 Mg PO HS Ramipril 5 Mg Cap 5 Mg PO DAILY Quetiapine (Quetiapine Fumarate) 25 Mg Tab 25 Mg PO HS Klor-Con 10 (Potassium Chloride) 10 Meq Tab 20 Meq PO DAILY Review of Systems Except as stated in HPI: all other systems reviewed are Neg Physical Exam Narrative GENERAL: Well-developed middle age -Maldivian male patient currently in mild distress. Awake and oriented 3. SKIN: Focused skin assessment warm/dry. HEAD: Atraumatic. Normocephalic. EYES: Pupils equal and round. No scleral icterus. No injection or drainage. ENT: No nasal bleeding or discharge. Mucous membranes pink and moist. NECK: Trachea midline. No JVD. CARDIOVASCULAR: Regular rate and rhythm. No murmur appreciated. Pulses are present and equal bilaterally. RESPIRATORY: No accessory muscle use. Clear to auscultation. Breath sounds equal bilaterally. GASTROINTESTINAL: Abdomen soft, non-tender, nondistended. Hepatic and splenic margins not palpable. MUSCULOSKELETAL: No obvious deformities. No clubbing. No cyanosis. No edema. NEUROLOGICAL: Awake and alert. No obvious cranial nerve deficits. Motor grossly within normal limits. Normal speech. PSYCHIATRIC: Appropriate mood and affect; insight and judgment normal. Data Data Last Documented VS Vital Signs Date Time Temp Pulse Resp B/P Pulse Ox O2 Delivery O2 Flow Rate FiO2 03/11/17 09:50 93 16 114/69 98 Room Air 03/11/17 07:36 97.5 Orders Electrocardiogram (03/11/17 07:37) Ckmb (Isoenzyme) Profile (03/11/17 07:37) Complete Blood Count With Diff (03/11/17 07:37) Comprehensive Metabolic Panel (03/11/17 07:37) Magnesium (Mg) (03/11/17 07:37) Prothrombin Time / Inr (Pt) (03/11/17 07:37) Act Partial Throm Time (Ptt) (03/11/17 07:37) Troponin I (03/11/17 07:37) Lipase (03/11/17 07:37) Chest, Single Ap (03/11/17 07:37) Ecg Monitoring (03/11/17 07:37) Bilateral Bp Monitoring (03/11/17 07:37) Iv Access Insert/Monitor (03/11/17 07:37) Oximetry (03/11/17 07:37) Oxygen Administration (03/11/17 07:37) Sodium Chloride 0.9% Flush (Ns Flush) (03/11/17 07:45) Ondansetron Inj (Zofran Inj) (03/11/17 08:00) CKMB (03/11/17 08:00) CKMB% (03/11/17 08:00) Aspirin (Aspirin) (03/11/17 09:45) Nitroglycerin 2% Oint (Nitroglycerin 2% (03/11/17 09:45) Labs Laboratory Tests Test 03/11/17 08:00 White Blood Count 5.4 TH/MM3 Red Blood Count 4.16 MIL/MM3 Hemoglobin 12.5 GM/DL Hematocrit 37.2 % Mean Corpuscular Volume 89.3 FL Mean Corpuscular Hemoglobin 30.0 PG Mean Corpuscular Hemoglobin 33.6 % Concent Red Cell Distribution Width 13.9 % Platelet Count 133 TH/MM3 Mean Platelet Volume 10.3 FL Neutrophils (%) (Auto) 29.3 % Lymphocytes (%) (Auto) 58.8 % Monocytes (%) (Auto) 9.4 % Eosinophils (%) (Auto) 1.7 % Basophils (%) (Auto) 0.8 % Neutrophils # (Auto) 1.6 TH/MM3 Lymphocytes # (Auto) 3.2 TH/MM3 Monocytes # (Auto) 0.5 TH/MM3 Eosinophils # (Auto) 0.1 TH/MM3 Basophils # (Auto) 0.0 TH/MM3 CBC Comment DIFF FINAL Differential Comment Prothrombin Time 10.7 SEC Prothromb Time International 1.0 RATIO Ratio Activated Partial 24.6 SEC Thromboplast Time Sodium Level 142 MEQ/L Potassium Level 4.3 MEQ/L Chloride Level 110 MEQ/L Carbon Dioxide Level 19.6 MEQ/L Anion Gap 12 MEQ/L Blood Urea Nitrogen 7 MG/DL Creatinine 0.82 MG/DL Estimat Glomerular Filtration 125 ML/MIN Rate Random Glucose 60 MG/DL Calcium Level 8.7 MG/DL Magnesium Level 1.7 MG/DL Total Bilirubin 0.9 MG/DL Aspartate Amino Transf 88 U/L (AST/SGOT) Alanine Aminotransferase 44 U/L (ALT/SGPT) Alkaline Phosphatase 54 U/L Total Creatine Kinase 281 U/L Creatine Kinase MB 5.5 NG/ML Troponin I 0.14 NG/ML Total Protein 7.1 GM/DL Albumin 3.5 GM/DL Lipase 91 U/L [facility] Medical Decision Making Medical Screen Exam Complete: Yes Emergency Medical Condition: Yes Medical Record Reviewed: Yes Interpretation(s) EKG shows normal sinus rhythm at a rate of 77 bpm with LVH. Pattern unchanged from previous EKG on record. Laboratory Tests Test 03/11/17 08:00 Red Blood Count 4.16 MIL/MM3 (4.50-5.90) Hemoglobin 12.5 GM/DL (13.0-17.0) Hematocrit 37.2 % (39.0-51.0) Platelet Count 133 TH/MM3 (150-450) Lymphocytes (%) (Auto) 58.8 % (9.0-44.0) Monocytes (%) (Auto) 9.4 % (0.0-8.0) Neutrophils # (Auto) 1.6 TH/MM3 (1.8-7.7) Chloride Level 110 MEQ/L (98-107) Carbon Dioxide Level 19.6 MEQ/L (21.0-32.0) Random Glucose 60 MG/DL (74-106) Aspartate Amino Transf 88 U/L (15-37) (AST/SGOT) Creatine Kinase MB 5.5 NG/ML (0.5-3.6) Troponin I 0.14 NG/ML (0.02-0.05) Last 24 hours Impressions Chest X-Ray 03/11/17 0744 Signed Impressions: Service Date/Time: Saturday, March 11, 2017 07:40 - CONCLUSION: Hyperinflated lungs presumably from COPD. Satya Feldman MD Differential Diagnosis Chest painsACS versus costochondritis versus pneumonia versus musculoskeletal chest pain versus anxiety attack Narrative Course Lab work shows mildly elevated troponin which is close to patient's baseline. EKG did not show changes. At this point, my plan would be to admit him as an observation for further evaluation of chest pain. Aspirin was given in the ER. At this point, my plan would be to admit the patient for further treatment. Case was discussed with Dr. Brar for admission. Diagnosis Primary Impression: chest pain Additional Impression: Elevated troponin Admitting Information Admitting Physician Requests: it Agustín Merlos MD Mar 11, 2017 08:23
[2017-03-11 08:30] LABS: APTT (PATIENT) 24.6 SEC (24.3-30.1); PROTHROMBIN TIME - PATIENT 10.7 SEC (9.8-11.6)
[2017-03-11 08:42] LABS: ALT (GPT) 44 U/L (12-78); AST (GOT) 88 U/L (15-37); BICARBONATE 19.6 MEQ/L (21.0-32.0); BLOOD UREA NITROGEN 7 MG/DL (7-18); GLOMERULAR FILTRATION RATE 125 ML/MIN (>89); MAGNESIUM 1.7 MG/DL (1.5-2.5)
[2017-03-11 09:00] LABS: ALKALINE PHOSPHATASE 54 U/L (45-117); ANION GAP 12 MEQ/L (5-15); CHLORIDE 110 MEQ/L (98-107); CREATINE KINASE 281 U/L (39-308); POTASSIUM 4.3 MEQ/L (3.5-5.1); SODIUM (NA) 142 MEQ/L (136-145); TOTAL BILIRUBIN ADULT 0.9 MG/DL (0.2-1.0)
[2017-03-11 09:13] LABS: CKMB 5.5 NG/ML (0.5-3.6)
[2017-03-11] MEDS ORDERED: ASPIRIN 325 MG TAB PO ONE (09:45)
[2017-03-11] MEDS ORDERED: NITROGLYCERIN 2% OINT 1 GM PACKET TOPICAL ONE (09:45)
[2017-03-11] MEDS ORDERED: ACETAMINOPHEN 500 MG CPLT PO PRN (10:00)
[2017-03-11] MEDS ORDERED: ACETAMINOPHEN/HYDROcodone 325 MG/7.5 MG TAB PO PRN (10:00)
[2017-03-11] MEDS ORDERED: SODIUM CHLORIDE 0.9% FLUSH 10 ML FLUSH IV FLUSH PRN (10:00)
[2017-03-11] MEDS ORDERED: NITROGLYCERIN 0.4 MG SL 25 TABS/BTL SL PRN (10:00)
[2017-03-11 12:02] LABS: AMPHETAMINE, URINE NEG (NEG); BARBITURATES, URINE NEG (NEG); COCAINE, URINE NEG (NEG)
--- NOTE | 2017-03-11 14:15 | HHI.HP ---
[facility] Service [place] [facility] Primary Care Physician No Primary Care Physician Admission Diagnosis chest pain/elevated troponin Diagnoses: (1) Atypical chest pain (2) Nonischemic cardiomyopathy (3) Elevated troponin Chief Complaint: Chest pain Travel History International Travel<30 Days: No Contact w/Intl Traveler <30 Da: No Traveled to Known Affected Are: No History of Present Illness 41-year-old male with a history of nonischemic cardiomyopathy presented to the ED for evaluation of an acute onset of substernal chest pain described as stabbing and radiated 6/10 in intensity with associated nausea as well as emesis without any diaphoresis or radiation. Patient was found to have elevated cardiac enzyme. Patient was last admitted to the hospital 02/17/17 for similar complaint for which he was seen by cardiology and at that time it was advised for optimization of medical management 3 months. Patient currently denies any cocaine use however states he still smokes 3-6 cigarettes per day. He reported improvement of chest pain during my exam and was asking if he could be discharged home. Review of Systems Except as stated in HPI: all other systems reviewed are Neg Past Family Social History Past Medical History Hypertension Nonischemic cardiomyopathy History of CHF COPD History of DVT 2014 Allergies: Coded Allergies: Iodine (Verified Allergy, Severe, itching, 03/11/17) Seafood (Verified Allergy, Severe, itching, 03/11/17) Family History brother- from kidney failure mom- from heart attack Social History 3- 4 beers every other day 2-3 cigarrettes a day cocaine abuse before- stopped 1 yr ago, after heart issues and current UDS negative Physical Exam Vital Signs Vital Signs Date Time Temp Pulse Resp B/P Pulse Ox O2 Delivery O2 Flow Rate FiO2 03/11/17 11:12 98.6 81 16 115/71 99 03/11/17 10:43 74 18 109/74 98 03/11/17 09:50 93 16 114/69 98 Room Air 03/11/17 07:47 108/77 110/77 03/11/17 07:36 97.5 71 16 108/80 100 Physical Exam GENERAL: This is a well-nourished, well-developed patient, in no apparent distress. SKIN: No rashes, ecchymoses or lesions. Cool and dry. HEAD: Atraumatic. Normocephalic. No temporal or scalp tenderness. EYES: Pupils equal round and reactive. Extraocular motions intact. No scleral icterus. No injection or drainage. ENT: Nose without bleeding, purulent drainage or septal hematoma. Throat without erythema, tonsillar hypertrophy or exudate. Uvula midline. Airway patent. NECK: Trachea midline. No JVD or lymphadenopathy. Supple, nontender, no meningeal signs. CARDIOVASCULAR: Regular rate and rhythm without murmurs, gallops, or rubs. RESPIRATORY: Clear to auscultation. Breath sounds equal bilaterally. No wheezes , rales, or rhonchi. GASTROINTESTINAL: Abdomen soft, non-tender, nondistended. No hepato-splenomegaly , or palpable masses. No guarding. MUSCULOSKELETAL: Extremities without clubbing, cyanosis, or edema. No joint tenderness, effusion, or edema noted. No calf tenderness. Negative Homans sign bilaterally. NEUROLOGICAL: Awake and alert. Cranial nerves II through XII intact. Motor and sensory grossly within normal limits. Five out of 5 muscle strength in all muscle groups. Normal speech. Laboratory Laboratory Tests Test 03/11/17 03/11/17 08:00 11:11 White Blood Count 5.4 Red Blood Count 4.16 Hemoglobin 12.5 Hematocrit 37.2 Mean Corpuscular Volume 89.3 Mean Corpuscular Hemoglobin 30.0 Mean Corpuscular Hemoglobin 33.6 Concent Red Cell Distribution Width 13.9 Platelet Count 133 Mean Platelet Volume 10.3 Neutrophils (%) (Auto) 29.3 Lymphocytes (%) (Auto) 58.8 Monocytes (%) (Auto) 9.4 Eosinophils (%) (Auto) 1.7 Basophils (%) (Auto) 0.8 Neutrophils # (Auto) 1.6 Lymphocytes # (Auto) 3.2 Monocytes # (Auto) 0.5 Eosinophils # (Auto) 0.1 Basophils # (Auto) 0.0 CBC Comment DIFF FINAL Differential Comment Prothrombin Time 10.7 Prothromb Time International 1.0 Ratio Activated Partial 24.6 Thromboplast Time Sodium Level 142 Potassium Level 4.3 Chloride Level 110 Carbon Dioxide Level 19.6 Anion Gap 12 Blood Urea Nitrogen 7 Creatinine 0.82 Estimat Glomerular Filtration 125 Rate Random Glucose 60 Calcium Level 8.7 Magnesium Level 1.7 Total Bilirubin 0.9 Aspartate Amino Transf 88 (AST/SGOT) Alanine Aminotransferase 44 (ALT/SGPT) Alkaline Phosphatase 54 Total Creatine Kinase 281 Creatine Kinase MB 5.5 Troponin I 0.14 Total Protein 7.1 Albumin 3.5 Lipase 91 Urine Opiates Screen NEG Urine Barbiturates Screen NEG Urine Amphetamines Screen NEG Urine Benzodiazepines Screen NEG Urine Cocaine Screen NEG Urine Cannabinoids Screen NEG Result Diagram: 03/11/17 0800 03/11/17 0800 Imaging Last Impressions Chest X-Ray 03/11/17 0737 Signed Impressions: Service Date/Time: Saturday, March 11, 2017 07:40 - CONCLUSION: Hyperinflated lungs presumably from COPD. Satya Feldman MD Assessment and Plan Problem List: (1) Atypical chest pain ICD Code: R07.89 Status: Acute (2) Elevated troponin ICD Code: R74.8 Status: Acute (3) Nonischemic cardiomyopathy ICD Code: I42.8 Status: Acute (4) Chronic systolic CHF (congestive heart failure) ICD Code: I50.22 Status: Acute Assessment and Plan 41-year-old male with Atypical chest pain Nonischemic cardiomyopathy Elevated troponin Continue ACS ruled out per protocol with serial cardiac enzyme and EKGs Elevated troponin likely secondary to nonischemic myopathy and chronic heart failure Patient was seen by cardiology 02/18/17 and recommended organizational medical management 3 months prior to evaluation for possible ICD placement Last 2-D echo (12/16/16) with EF 20-25% Will resume Coreg and LLOYD inhibitor Nitroglycerin when necessary History of chronic systolic CHF Check BNP and Resume Coreg , LLOYD inhibitor as well as Lasix + Imdur Prior history of substance abuse Check UDS History of COPD CXR noted and review by me and no evidence of acute CPD DuoNeb PRN and Tobacco cessation advised Code Status Full code Discussed Condition With Patient, ED physician Willy Brar MD Mar 11, 2017 14:15
[2017-03-11] MEDS: ONDANSETRON HCL 4 MG/2 ML VIAL IV PRN (17:00)
[2017-03-11] MEDS: SODIUM CHLORIDE 0.9% FLUSH 10 ML FLUSH IV FLUSH SCH (19:49)
[2017-03-11] MEDS: CARVEDILOL 12.5 MG TAB PO SCH (19:49)
[2017-03-11] MEDS ORDERED: METOCLOPRAMIDE HCL SYRUP 10 MG/10 ML UDC PO ONE (22:00)
[2017-03-11] MEDS ORDERED: RESP: ALBUTEROL 2.5 MG/IPRATROPIUM 0.5 MG NEB (PRN) NEB (22:00)
[2017-03-12] VITALS (11 sets, daily range): BP systolic 75–152; BP diastolic 42–66; PULSE 49–70; RESP 15–20; TEMP 96.1–99; O2SAT 97–100
[2017-03-12] MEDS: ONDANSETRON HCL 4 MG/2 ML VIAL IV PRN (01:11)
--- NOTE | 2017-03-12 08:29 | HHI.PR ---
Subjective Remarks Follow-up for epigastric pain. The patient is not a great historian. The patient states he's been "sick" lately. He states that yesterday he was having multiple episodes of vomiting and diarrhea. He states that he had pain in his upper abdomen that was radiating up into his chest. He does report a history of stomach ulcers. He denies having EGD in many years. He describes the vomitus as yellow-like mucus. He states his stools have been watery and brown/ black. He does drink 23 beers most days. He does continue to smoke. He is unsure about any NSAID use. He states that he has not been tolerating diet since admission and threw up his dinner last night. He does report that the abdominal and chest pain is somewhat improved today. Objective Vitals Vital Signs Date Time Temp Pulse Resp B/P Pulse Ox O2 Delivery O2 Flow Rate FiO2 03/12/17 08:02 62 03/12/17 07:59 97.4 62 17 152/66 100 03/12/17 04:22 96.9 62 18 100/58 100 03/12/17 01:03 96.1 62 18 97/54 99 03/11/17 23:19 70 03/11/17 19:11 97.8 78 18 122/80 98 03/11/17 17:54 77 03/11/17 15:28 98.9 76 18 113/67 100 03/11/17 11:12 98.6 81 16 115/71 99 03/11/17 10:43 74 18 109/74 98 03/11/17 09:50 93 16 114/69 98 Room Air I/O 03/11/17 03/11/17 03/11/17 03/12/17 03/12/17 03/12/17 07:00 15:00 23:00 07:00 15:00 23:00 Intake Total 600 ml Output Total 420 ml Balance 180 ml Intake Oral 600 ml Output Urine Total 420 ml # Voids 5 # Bowel Movements 0 Result Diagram: 03/11/17 0800 03/11/17 0800 Imaging Last Impressions Chest X-Ray 03/11/17 0469 Signed Impressions: Service Date/Time: Saturday, March 11, 2017 07:40 - CONCLUSION: Hyperinflated lungs presumably from COPD. Satya Feldman MD Objective Remarks GENERAL: Well-developed well-nourished thin patient. In no acute distress. SKIN: Warm and dry. No lesions noted. HEENT: Normocephalic. Pupils equal and round. Mucous membranes pink and moist. CARDIOVASCULAR: Regular rate and rhythm. No murmur appreciated. RESPIRATORY: No accessory muscle use. Clear to auscultation. Breath sounds equal bilaterally. GASTROINTESTINAL: Abdomen soft, epigastric G-tube. He, nondistended. Bowel sounds x4. MUSCULOSKELETAL: No obvious deformities. No clubbing or cyanosis. No edema. NEUROLOGICAL: Awake and alert. No focal neurological deficits. Moves upper and lower extremities spontaneously. Normal speech. PSYCHIATRIC: Appropriate mood and affect; insight and judgment fair to normal. A/P Problem List: (1) Atypical chest pain ICD Code: R07.89 Status: Acute (2) Elevated troponin ICD Code: R74.8 Status: Chronic (3) Nonischemic cardiomyopathy ICD Code: I42.8 Status: Chronic (4) Chronic systolic CHF (congestive heart failure) ICD Code: I50.22 Status: Chronic Assessment and Plan 41-year-old male with Atypical chest pain Nonischemic cardiomyopathy Elevated troponin - 0.14, 0.13, 0.15 ACS ruled out per protocol with serial cardiac enzyme and EKGs; flat, nonischemic enzymes Elevated troponin likely secondary to nonischemic myopathy and chronic heart failure Patient was seen by cardiology 02/18/17 and recommended organizational medical management 3 months prior to evaluation for possible ICD placement Last 2-D echo (12/16/16) with EF 20-25% Continue Coreg and LLOYD inhibitor Nitroglycerin when necessary Epigastric pain Gastroenteritis - N/V/D Hx PUD Reviewed: Hemoglobin 12.5, previously 12.0 on 02/17/17, stable. Afebrile with no leukocytosis. Start PPI and clear liquid Consult gastroenterology, r/o GIB Check stool studies and stool for Hemoccult Counseled on tobacco and alcohol cessation History of chronic systolic CHF BNP 480, not clinically in exacerbation Continue Coreg , LLOYD inhibitor as well as Lasix + Imdur Prior history of substance abuse Checked UDS which was negative History of COPD CXR with hyperinflation, no acute process noted DuoNeb PRN and Tobacco cessation advised DVT prophylaxis: SCDs Discharge Planning Follow-up GI recommendations. Addendum: 1745 patient's blood pressure has been soft this afternoon. BP did improve from 75 systolic to 82 with IVF bolus. H&H is stable. Patient reassessed. The patient reports that he is hungry. Upon further questioning he does feel tired. He denies any lightheadedness or dizziness. He denies any chest pain or shortness of breath. He denies any further abdominal pain, vomiting, or diarrhea. He does report that he is compliant with his blood pressure medications at home, however he is not sure what medications he is on, and states that his medication list was lost in the ED. Suspect an element of noncompliance with home BP meds. On exam awake alert and neurologically intact. No signs of volume overload. Continue with gentle IV hydration with severe cardiomyopathy. Hold BP meds for now. Jv Ruvalcaba Mar 12, 2017 08:29
[2017-03-12] MEDS ORDERED: ISOSORBIDE MONONITRATE 30 MG TAB PO SCH (09:00)
[2017-03-12] MEDS ORDERED: POTASSIUM CHLORIDE 20 MEQ CONTROLLED RELEASE TAB PO SCH (09:00)
[2017-03-12] MEDS ORDERED: PANTOPRAZOLE SODIUM 40 MG VIAL IV PUSH SCH (09:00)
[2017-03-12] MEDS ORDERED: RAMIPRIL 5 MG CAP PO SCH (09:00)
[2017-03-12] MEDS ORDERED: FUROSEMIDE 20 MG TAB PO SCH (09:00)
[2017-03-12] MEDS: SODIUM CHLORIDE 0.9% FLUSH 10 ML FLUSH IV FLUSH SCH ×2 (09:18→20:38)
[2017-03-12] MEDS: CARVEDILOL 12.5 MG TAB PO SCH ×2 (09:18→21:00)
--- NOTE | 2017-03-12 09:36 | PD.CONS ---
HPI History of Present Illness This is a 41 year old male with who presented to ER yesterday morning for chest pain and abdominal pain. Onset was yesterday, abd pain in epigastric region, throbbing, with nausea and vomiting. He was able to eat clears today and has not vomited. He admits dark stool yesterday, none prior. Admits black material in vomit, cannot qualify further. He experienced this pain and n/v before a couple years ago and was told he had ulcers, denies having had EGD. Admits diarrhea, says he always had diarrhea from his meds. He has been here twice in the last few months for similar symptoms. Denies NSAID use. Pt is poor historian. (Kayla Alcala) PFSH Past Medical History Hypertension Nonischemic cardiomyopathy History of CHF COPD History of DVT 2014 (Kayla Alcala) Coded Allergies: Iodine (Verified Allergy, Severe, itching, 03/11/17) Seafood (Verified Allergy, Severe, itching, 03/11/17) Family History brother- from kidney failure mom- from heart attack Social History 3- 4 beers every other day 2-3 cigarrettes a day cocaine abuse before- stopped 1 yr ago, after heart issues and current UDS negative (Kayla Alcala) Review of Systems Constitutional: DENIES: Fever Eyes: DENIES: Blurred vision Ears, nose, mouth, throat: DENIES: Hearing loss Respiratory: DENIES: Cough Cardiovascular: COMPLAINS OF: Chest pain Gastrointestinal: COMPLAINS OF: Abdominal pain, Black stools, Diarrhea (admits chronic diarrhea r/t meds he takes), Nausea, Vomiting, DENIES: Bloody stools, Hematemesis Genitourinary: DENIES: Hematuria Musculoskeletal: DENIES: Muscle aches Integumentary: DENIES: Abnormal pigmentation Neurologic: DENIES: Abnormal gait Psychiatric: DENIES: Confusion (Kayla Alcala) GI Exam Vitals I&O Vital Signs Date Time Temp Pulse Resp B/P Pulse Ox O2 Delivery O2 Flow Rate FiO2 03/12/17 08:02 62 03/12/17 07:59 97.4 62 17 152/66 100 03/12/17 04:22 96.9 62 18 100/58 100 03/12/17 01:03 96.1 62 18 97/54 99 03/11/17 23:19 70 03/11/17 19:11 97.8 78 18 122/80 98 03/11/17 17:54 77 03/11/17 15:28 98.9 76 18 113/67 100 03/11/17 11:12 98.6 81 16 115/71 99 03/11/17 10:43 74 18 109/74 98 03/11/17 09:50 93 16 114/69 98 Room Air I/O 03/11/17 03/11/17 03/11/17 03/12/17 03/12/17 03/12/17 07:00 15:00 23:00 07:00 15:00 23:00 Intake Total 600 ml Output Total 420 ml Balance 180 ml Intake Oral 600 ml Output Urine Total 420 ml # Voids 5 # Bowel Movements 0 Imaging Last Impressions Chest X-Ray 03/11/17 0737 Signed Impressions: Service Date/Time: Saturday, March 11, 2017 07:40 - CONCLUSION: Hyperinflated lungs presumably from COPD. Satya Feldman MD Laboratory Test 03/11/17 03/11/17 03/11/17 11:11 14:02 21:20 Urine Opiates Screen NEG Urine Barbiturates Screen NEG Urine Amphetamines Screen NEG Urine Benzodiazepines Screen NEG Urine Cocaine Screen NEG Urine Cannabinoids Screen NEG Total Creatine Kinase 257 U/L 234 U/L Troponin I 0.13 NG/ML 0.15 NG/ML Physical Examination HEENT:EOMI; atraumatic; no jaundice. CHEST: CTA CARDIAC: RRR ABDOMEN: Soft, nondistended, epigastric TTP; no hepatosplenomegaly; bowel sounds are present in all four quadrants. EXTREMITIES: No clubbing, cyanosis, or edema. SKIN: Normal; no rash; no jaundice. 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 (Kayla Alcala) Assessment and Plan Plan ASSESSMENT - abdominal pain, n/v - emesis and stool with dark material. Onset yesterday. hx ulcers per pt. - diarrhea - in last 2 d has been dark. pt says he has chronic diarrhea. stool cx pending. Will consider colonoscopy when pt able to tolerate PO - anemia - mild, hgb 12.3. PLAN - EGDtomorrow - obtain consents - clears for now - NPO after midnight - monitor HH - further recommendatiosn to follow This pt seen by myself and DR Sutton and this note is written on his behalf ( Kayla Alcala) Physician Comments Seen and examined, plan as above, will schedule EGD in AM. Further recommendations to follow. (Mikayla Sutton MD) Kayla Alcala Mar 12, 2017 09:36 Mikayla Sutton MD Mar 12, 2017 15:37
[2017-03-12 10:29] LABS: AUTOMATED NEUTROPHIL # 3.4 TH/MM3 (1.8-7.7); BASOPHIL % 0.4 % (0.0-2.0); EOSINOPHIL # 0.1 TH/MM3 (0-0.4); HEMATOCRIT 38.7 % (39.0-51.0); HEMO FLAGS DIFF FINAL; LYMPH % 29.5 % (9.0-44.0); LYMPHOCYTE # 1.7 TH/MM3 (1.0-4.8); MEAN CELL VOLUME 91.4 FL (80.0-100.0); MEAN CORPUSCULAR HEMOGLOBIN 29.1 PG (27.0-34.0); MEAN CORPUSCULAR HGB CONC 31.8 % (32.0-36.0); MONO % 11.2 % (0.0-8.0); NEUT % 57.9 % (16.0-70.0); PLATELET COUNT 115 TH/MM3 (150-450); RED BLOOD COUNT 4.23 MIL/MM3 (4.50-5.90); RED CELL DISTRIBUTION WIDTH 13.4 % (11.6-17.2); WHITE BLOOD COUNT 5.8 TH/MM3 (4.0-11.0)
[2017-03-12 10:44] LABS: BICARBONATE 23.6 MEQ/L (21.0-32.0); POTASSIUM 3.8 MEQ/L (3.5-5.1)
[2017-03-12] MEDS ORDERED: SODIUM CHLORID 0.9% 500 ML INJ 500 ML IV SCH (11:45)
[2017-03-12] MEDS ORDERED: ACETAMINOPHEN/HYDROcodone 325 MG/7.5 MG TAB PO PRN (12:00)
[2017-03-12] MEDS ORDERED: SODIUM CHLOR 0.9% 250 ML INJ 250 ML IV ONE (16:15)
[2017-03-12 16:24] LABS: HEMATOCRIT 35.6 % (39.0-51.0); REVIEW FLAG FINAL
--- NOTE | 2017-03-12 16:38 | EKG ---
Date Performed: 03/11/2017 Time Performed: 20:58:22 PTAGE: 41 years EKG: Sinus rhythm POSSIBLE RIGHT ATRIAL ENLARGEMENT LEFT ATRIAL ENLARGEMENT LEFT ANTERIOR FASCICULAR BLOCK SEPTAL MYOC ARDIAL INFARCTION MODERATE T-WAVE ABNORMALITY, CONSIDER LATERAL ISCHEMIA ABNORMAL ECG PREVIOUS TRACING : 03/11/2017 16.33 Compared to prior tracing no significant change DOCTOR: Sylvester Campuzano Interpretating Date/Time 03/12/2017 16:37:28
--- NOTE | 2017-03-12 19:32 | EKG ---
Date Performed: 03/11/2017 Time Performed: 16:33:50 PTAGE: 41 years EKG: Sinus rhythm POSSIBLE LEFT ATRIAL ENLARGEMENT MARKED LEFT AXIS DEVIATION ANTEROSEPTAL MYOCARDIAL INFARCTION, POSS IBLE ACUTE PREVIOUS TRACING : 03/11/2017 07.40 Compared to prior tracing no significant change DOCTOR: Sylvester Campuzano Interpretating Date/Time 03/12/2017 19:32:05
--- NOTE | 2017-03-12 20:14 | EKG ---
Date Performed: 03/11/2017 Time Performed: 07:40:40 PTAGE: 41 years EKG: Sinus rhythm POSSIBLE RIGHT ATRIAL ENLARGEMENT POSSIBLE LEFT ATRIAL ENLARGEMENT LEFT ANTERIOR FASCICULAR BLOCK AN TEROSEPTAL MYOCARDIAL INFARCTION MODERATE T-WAVE ABNORMALITY, CONSIDER LATERAL ISCHEMIA ABNORMAL ECG Compared to the PREVIOUS TRACING from 02/18/17, no significant change DOCTOR: Sylvester Campuzano Interpretating Date/Time 03/12/2017 20:14:02
[2017-03-13 03:50] VITALS: BP 108/58; PULSE 62; RESP 18; TEMP 98.4; O2SAT 97
[2017-03-13 05:15] LABS: AUTOMATED NEUTROPHIL # 2.5 TH/MM3 (1.8-7.7); BASOPHIL % 0.4 % (0.0-2.0); EOSINOPHIL # 0.1 TH/MM3 (0-0.4); EOSINOPHIL % 1.5 % (0.0-4.0); HEMATOCRIT 36.4 % (39.0-51.0); HEMO FLAGS DIFF FINAL; LYMPH % 45.1 % (9.0-44.0); LYMPHOCYTE # 2.8 TH/MM3 (1.0-4.8); MEAN CELL VOLUME 90.9 FL (80.0-100.0); MEAN CORPUSCULAR HEMOGLOBIN 29.8 PG (27.0-34.0); MEAN CORPUSCULAR HGB CONC 32.8 % (32.0-36.0); MONO % 13.2 % (0.0-8.0); NEUT % 39.8 % (16.0-70.0); PLATELET COUNT 101 TH/MM3 (150-450); RED CELL DISTRIBUTION WIDTH 13.3 % (11.6-17.2); WHITE BLOOD COUNT 6.2 TH/MM3 (4.0-11.0)
[2017-03-13 05:38] LABS: BICARBONATE 21.6 MEQ/L (21.0-32.0); POTASSIUM 3.8 MEQ/L (3.5-5.1)
[2017-03-13 08:12] VITALS: PULSE 71
[2017-03-13 08:40] VITALS: O2SAT 98
--- NOTE | 2017-03-13 08:48 | HHI.PR ---
Subjective Remarks Follow-up for possible gastroenteritis. The patient has no complaints today. He states that he is hungry and he wants to eat. Agreeable to go to EGD today. He denies any further abdominal pain or diarrhea. Objective Vitals Vital Signs Date Time Temp Pulse Resp B/P Pulse Ox O2 Delivery O2 Flow Rate FiO2 03/13/17 08:12 71 03/13/17 03:50 98.4 62 18 108/58 97 03/12/17 23:17 99.0 70 16 105/53 98 03/12/17 22:04 67 03/12/17 20:48 98.5 54 18 86/50 97 03/12/17 17:33 82/50 03/12/17 17:28 96.5 61 20 75/43 100 03/12/17 15:42 18 03/12/17 15:41 98.7 50 15 80/42 98 03/12/17 12:11 97.9 49 16 89/50 100 I/O 03/12/17 03/12/17 03/12/17 03/13/17 03/13/17 03/13/17 06:59 14:59 22:59 06:59 14:59 22:59 Intake Total 100 ml Output Total 250 ml Balance 100 ml -250 ml IV Total 100 ml Output Urine Total 250 ml Result Diagram: 03/13/17 0443 03/13/17 0443 Imaging Last Impressions Chest X-Ray 03/11/17 0737 Signed Impressions: Service Date/Time: Saturday, March 11, 2017 07:40 - CONCLUSION: Hyperinflated lungs presumably from COPD. Satya Feldman MD Objective Remarks GENERAL: Well-developed well-nourished thin patient. In no acute distress. SKIN: Warm and dry. No lesions noted. HEENT: Normocephalic. Pupils equal and round. Mucous membranes pink and moist. CARDIOVASCULAR: Regular rate and rhythm. No murmur appreciated. RESPIRATORY: No accessory muscle use. Clear to auscultation. Breath sounds equal bilaterally. GASTROINTESTINAL: Abdomen soft, nontender, nondistended. Bowel sounds x4. MUSCULOSKELETAL: No obvious deformities. No clubbing or cyanosis. No edema. NEUROLOGICAL: Awake and alert. No focal neurological deficits. Moves upper and lower extremities spontaneously. Normal speech. PSYCHIATRIC: Appropriate mood and affect; insight and judgment fair to normal. A/P Problem List: (1) Atypical chest pain ICD Code: R07.89 Status: Acute (2) Elevated troponin ICD Code: R74.8 Status: Chronic (3) Nonischemic cardiomyopathy ICD Code: I42.8 Status: Chronic (4) Chronic systolic CHF (congestive heart failure) ICD Code: I50.22 Status: Chronic Assessment and Plan 41-year-old male with Atypical chest pain Nonischemic cardiomyopathy Elevated troponin - 0.14, 0.13, 0.15 ACS ruled out per protocol with serial cardiac enzyme and EKGs; flat, nonischemic enzymes Elevated troponin likely secondary to nonischemic myopathy and chronic heart failure Patient was seen by cardiology 02/18/17 and recommended optimizing medical management 3 months prior to evaluation for possible ICD placement Last 2-D echo (12/16/16) with EF 20-25% Holding Coreg and LLOYD inhibitor as below Nitroglycerin when necessary Epigastric pain Gastroenteritis - N/V/D Hx PUD Reviewed: Hemoglobin stable at 11.9, previously 12.0 on 02/17/17. Afebrile with no leukocytosis. PPI Consulted gastroenterology, performing EGD today Check stool studies if further episodes of diarrhea Symptoms have spontaneously improved History of chronic systolic CHF BNP 480, not clinically in exacerbation Continue Coreg , LLOYD inhibitor as well as Lasix + Imdur if tolerated Hypertension: Patient with persistent hypotension after resuming reported home meds. Suspect noncompliance with home medication regimen as BP improved with home meds held and 750 cc IVF. Decrease carvedilol with hold parameters Hold other home BP meds for now and reintroduce as tolerated, likely as outpatient PHOEBE: Improved. Creatinine increased to 1.31 from 0.82, likely due to vomiting which has resolved. Creatinine improved to baseline creatinine 0.86 with gentle IVF. Monitor. Prior history of substance abuse Checked UDS which was negative History of COPD CXR with hyperinflation, no acute process noted DuoNeb PRN and Tobacco cessation advised DVT prophylaxis: SCDs Discharge Planning Follow-up results of EGD. Likely discharge planning later today if patient is able to tolerate diet. 1030 RN reports the patient is leaving AGAINST MEDICAL ADVICE. Apparently he refused EGD. BP remains soft off of all antihypertensives, would recommend continuing holding BP meds and continuing to monitor. Jv Ruvalcaba Mar 13, 2017 08:48
[2017-03-13] MEDS ORDERED: CARVEDILOL 6.25 MG TAB PO SCH (09:00)
[2017-03-13 09:44] VITALS: BP 108/58; PULSE 62; RESP 18; TEMP 98.4; O2SAT 98
--- NOTE | 2017-03-13 10:13 | HHI.GIFU ---
Subjective Remarks Feeling better and refusing EGD Objective Vitals I&O Vital Signs Date Time Temp Pulse Resp B/P Pulse Ox O2 Delivery O2 Flow Rate FiO2 03/13/17 09:44 98.4 62 18 108/58 98 03/13/17 08:40 98 03/13/17 08:12 71 03/13/17 03:50 98.4 62 18 108/58 97 03/12/17 23:17 99.0 70 16 105/53 98 03/12/17 22:04 67 03/12/17 20:48 98.5 54 18 86/50 97 03/12/17 17:33 82/50 03/12/17 17:28 96.5 61 20 75/43 100 03/12/17 15:42 18 03/12/17 15:41 98.7 50 15 80/42 98 03/12/17 12:11 97.9 49 16 89/50 100 I/O 03/12/17 03/12/17 03/12/17 03/13/17 03/13/17 03/13/17 07:00 15:00 23:00 07:00 15:00 23:00 Intake Total 100 ml Output Total 250 ml Balance 100 ml -250 ml IV Total 100 ml Output Urine Total 250 ml Laboratory Laboratory Tests Test 03/12/17 03/13/17 16:10 04:43 Hemoglobin 12.0 11.9 Hematocrit 35.6 36.4 White Blood Count 6.2 Red Blood Count 4.00 Mean Corpuscular Volume 90.9 Mean Corpuscular Hemoglobin 29.8 Mean Corpuscular Hemoglobin 32.8 Concent Red Cell Distribution Width 13.3 Platelet Count 101 Mean Platelet Volume 10.4 Neutrophils (%) (Auto) 39.8 Lymphocytes (%) (Auto) 45.1 Monocytes (%) (Auto) 13.2 Eosinophils (%) (Auto) 1.5 Basophils (%) (Auto) 0.4 Neutrophils # (Auto) 2.5 Lymphocytes # (Auto) 2.8 Monocytes # (Auto) 0.8 Eosinophils # (Auto) 0.1 Basophils # (Auto) 0.0 CBC Comment DIFF FINAL Differential Comment Sodium Level 142 Potassium Level 3.8 Chloride Level 110 Carbon Dioxide Level 21.6 Anion Gap 10 Blood Urea Nitrogen 9 Creatinine 0.86 Estimat Glomerular Filtration 119 Rate Random Glucose 86 Calcium Level 8.1 Physical Exam HEENT: Pupils round and reactive to light; normocephalic; atraumatic; no jaundice. Throat is clear. NECK: Neck is supple, no JVD, no lymphadenopathy. CHEST: Chest is clear to auscultation and percussion. CARDIAC: Regular rate and rhythm with no murmur gallop or rubs. ABDOMEN: Soft, nondistended, nontender; no hepatosplenomegaly; bowel sounds are present in all four quadrants. EXTREMITIES: No clubbing, cyanosis, or edema. Assessment and Plan Plan ASSESSMENT - abdominal pain, n/v - emesis and stool with dark material. Onset yesterday. hx ulcers per pt. - diarrhea - in last 2 d has been dark. pt says he has chronic diarrhea. stool cx pending. Will consider colonoscopy when pt able to tolerate PO - anemia - mild, hgb 12.3. PLAN - Refusing EGD - ASHLY - Supportive care - NPO after midnight - Monitor HH - Further recommendations to follow Mikayla Sutton MD Mar 13, 2017 10:13
--- NOTE | 2017-03-16 07:39 | PD.AMA ---
Against Medical Advice Note Diagnosis: (1) Chest pain Discharge Disposition: Against Medical Advice Pt Condition on Discharge: Good Recommended Treatment Course Patient left AMA 03/13/2017. I was not able to see this patient prior to him leaving AMA. AMA Statement Patient Satya Valdivia has decided to leave the hospital against medical advice. This patient has the capacity to refuse care and understands the risks of leaving, including permanent disability and/or , and has had an opportunity to ask questions about his condition. The patient has been informed that he may return for care at any time, and follow up has been arranged/ advised. Carlos Leigh MD Mar 16, 2017 07:39
== END 2017-03-13 10:47 | disposition left against medical advice (07) ==
LOC: NEPC 07:29 → NEDA 09:52 → NEPFCDU 10:50
PROVIDERS: ADMIT Hospitalist; ATTEND Hospitalist
DX: R07.89 Other chest pain (principal); R74.8 Abnormal levels of other serum enzymes; D64.9 Anemia, unspecified; K52.9 Noninfective gastroenteritis and colitis, unspecified; I11.0 Hypertensive heart disease with heart failure; I50.22 Chronic systolic (congestive) heart failure; I42.8 Other cardiomyopathies; I25.2 Old myocardial infarction; N17.9 Acute kidney failure, unspecified; F41.9 Anxiety disorder, unspecified; F32.9 Major depressive disorder, single episode, unspecified; F17.210 Nicotine dependence, cigarettes, uncomplicated; J44.9 Chronic obstructive pulmonary disease, unspecified; Z86.718 Personal history of other venous thrombosis and embolism; Z91.013 Allergy to seafood; Z88.8 Allergy status to other drugs, medicaments and biological substances; Z79.01 Long term (current) use of anticoagulants; Z87.11 Personal history of peptic ulcer disease
CPT/HCPCS: 71010; 80048; 80053; 80307; 82550; 82552; 83690; 83735; 83880; 84484; 85014; 85018; 85025; 85610; 85730; 93005; 96361; 96374; 96375; 96376; 99285; C9113; G0378; J2405; J7040; J7050

== ENCOUNTER 2017-03-21 20:53 | Emergency (ER) | payer OTHER ==
[~2017-03-21 20:53] MED LIST changes: +DIGO0.25 PO; +ISOS30TA3 PO; +XARE20TA PO
[2017-03-21 21:19] VITALS: BP 110/77; PULSE 94; RESP 18; TEMP 97.7; O2SAT 100
--- NOTE | 2017-03-21 21:23 | PD ---
HPI Chief Complaint: medical clearance Time Seen by Provider: 21:16 Travel History International Travel<30 days: No Contact w/Intl Traveler<30days: No Traveled to known affect area: No History of Present Illness HPI 41-year-old black male presents to the department in police custody for medical clearance to go to [facility]. The patient was holding a beer can on the street. The patient was arrested for open container. After the patient was advised he was going to [facility]dc he told patrol police sergeant that he was having chest pain. This is a patient who is had multiple ER and hospitalizations for chest pain in the past. Cardiac catheterization back in 2014 showed no evidence of acute coronary stenosis. Patient had dilated cardiomyopathy secondary to cocaine abuse. Patient has had a long-standing history of cocaine abuse in the past. The patient states that he is on multiple medications but cannot recall what they are. The patient denies any associated nausea or vomiting. No diaphoresis. No shortness of breath. States his pain is central in his chest. There is no radiation into the extremities. Patient's pain only began after being arrested. PFSH Past Medical History Hx Anticoagulant Therapy: Yes (XARELTO) Autoimmune Disease: No Blood Disorders: No Anxiety: Yes Depression: Yes Heart Rhythm Problems: Yes (SVT, [place]) Cancer: No Cardiac Catheterization: Yes Cardiomyopathy: Yes Cardiovascular Problems: Yes (cath) High Cholesterol: No Chemotherapy: No Chest Pain: Yes Congestive Heart Failure: Yes Cirrhosis: Yes Cerebrovascular Accident: No Diabetes: No Diminished Hearing: Yes (BILATERAL - [place]) Endocrine: No Gastrointestinal Disorders: Yes (ELEVATED LIVER ENZYMES) GERD: Yes Glaucoma: No Genitourinary: Yes Hepatitis: No Hiatal Hernia: No Heparin Induced Thrombocytopen: No Hypertension: Yes Immune Disorder: No Implanted Vascular Access Dvce: No Musculoskeletal: Yes Neurologic: No Psychiatric: Yes Reproductive: No Respiratory: No Immunizations Current: No Myocardial Infarction: Yes Pneumonia: Yes Radiation Therapy: No Sickle Cell Disease: No Thyroid Disease: No Ulcer: Yes Past Surgical History Abdominal Surgery: Yes (EXPLORATORY LAP) AICD: No Appendectomy: No Arteriovenous Shunt: No Body Medical Devices: pacemaker Cholecystectomy: No Coronary Artery Bypass Graft: No Ear Surgery: No Endocrine Surgery: No Eye Surgery: No Gynecologic Surgery: No Hysterectomy: No Insulin Pump: No Joint Replacement: No Neurologic Surgery: No Oral Surgery: Yes (TEETH EXTRACTIONS) Pacemaker: No Other Surgery: No Social History Alcohol Use: Yes (beer / liquor every day last drink yesterday ) Tobacco Use: Yes (1/4 pack per day) Substance Use: Yes (COCAINE + 1 MONTH AGO) Allergies-Medications (Allergen,Severity, Reaction): Coded Allergies: Iodine (Verified Allergy, Severe, itching, 03/11/17) Seafood (Verified Allergy, Severe, itching, 03/11/17) Reported Meds & Prescriptions Reported Meds & Active Scripts Active Pepcid (Famotidine) 20 Mg Tab 20 Mg PO BID Coreg (Carvedilol) 12.5 Mg Tab 12.5 Mg PO BID Reported Xarelto (Rivaroxaban) 20 Mg Tab 20 Mg PO DAILY Isosorbide Mononitrate ER (Isosorbide Mononitrate) 30 Mg Tahir 30 Mg PO DAILY Digoxin 0.25 Mg Tab 0.25 Mg PO DAILY Furosemide 40 Mg Tab 40 Mg PO BID Omeprazole 20 Mg Tab 20 Mg PO DAILY Mirtazapine ODT (Mirtazapine) 30 Mg Tab 30 Mg PO HS Ramipril 5 Mg Cap 5 Mg PO DAILY Quetiapine (Quetiapine Fumarate) 25 Mg Tab 25 Mg PO HS Klor-Con 10 (Potassium Chloride) 10 Meq Tab 20 Meq PO DAILY Review of Systems Except as stated in HPI: all other systems reviewed are Neg General / Constitutional: No: Fever, Chills Eyes: No: Blurred Vision, Photophobia HENT: No: Headaches, Sore Throat Cardiovascular: Positive: Chest Pain or Discomfort, No: Diaphoresis Respiratory: No: Cough, Shortness of Breath Gastrointestinal: No: Nausea, Vomiting Genitourinary: No: Dysuria, Hematuria Musculoskeletal: No: Myalgias, Arthralgias Skin: No Rash, No Itching Physical Exam Narrative GENERAL: Well-developed, well-nourished in no apparent distress. Nontoxic appearing. Patient is resting comfortably examination room. He is having a discussion with PD. HEAD: Normocephalic, atraumatic. EYES: Pupils equal round and reactive. Extraocular motions intact. No scleral icterus. No injection or drainage. ENT: Nose clear. Throat without erythema, tonsillar hypertrophy or exudate. Uvula midline. Airway patent. NECK: Trachea midline. Supple, nontender, moves head freely. No central bony tenderness or spasm. CARDIOVASCULAR: Regular rate and rhythm without murmurs, gallops, or rubs. RESPIRATORY: Clear to auscultation. Breath sounds equal bilaterally. No wheezes , rales, or rhonchi. GASTROINTESTINAL: Abdomen soft, non-tender, nondistended. No hepato-splenomegaly , or palpable masses. No guarding. EXTREMITIES: No clubbing, cyanosis, or edema. No joint tenderness. BACK: Nontender without deformity. No flank tenderness. NEUROLOGICAL: Awake, alert and oriented x 3 .Cranial nerves grossly intact. Motor and sensory grossly within normal limits. Normal speech. MDM Medical Decision Making Medical Screen Exam Complete: Yes Emergency Medical Condition: Yes Medical Record Reviewed: Yes Interpretation(s) EKG: This is compared to multiple EKGs that were performed last week during his evaluation. His EKG today shows a sinus rhythm with a ventricular rate of 95. Normal MS. Normal QRS duration. He has a left atrial enlargement, left anterior fascicle block. He has LVH with strain. No abnormal ST-T wave changes consistent with ischemia. Differential Diagnosis Differential diagnosis: Coronary artery disease, ST elevation [place], malingering Narrative Course The patient here complaints of chest pain. He only reports his discomfort after being arrested today open container. I evaluated his prior ER visits as well as of his recent admissions and his consultation with Dr. Nagel the ux research associate. He had a catheterization done in 2014 which showed no coronary stenosis. Patient has a long-standing history of substance abuse. Patient's EKG shows no acute OK today. It is unchanged from prior visits. The patient is consider medically stable and discharged. This is medical clearance for [facility] Diagnosis Primary Impression: Medical clearance for incarceration Additional Instructions: Rest. Continue regular medications. Avoid alcohol and drugs. Follow-up with your doctor Friday for recheck. Return to the ER over the weekend if symptoms persist. Med/Other Pt SpecificInfo: No Change to Meds Disposition: [address] LAW ENFORCEMNT Condition: Stable Yinka Colmenares Mar 21, 2017 21:23
--- NOTE | 2017-03-22 13:13 | EKG ---
Date Performed: 03/21/2017 Time Performed: 21:06:13 PTAGE: 41 years EKG: Sinus rhythm POSSIBLE RIGHT ATRIAL ENLARGEMENT LEFT ATRIAL ENLARGEMENT LEFT ANTERIOR FASCICULAR BLOCK ANTEROSEPTA L MYOCARDIAL INFARCTION ACUTE AR PREVIOUS TRACING : 03/11/2017 20.58 Compared to prior tracing no significant change DOCTOR: Elton Dhaliwal Interpretating Date/Time 03/22/2017 13:12:56
== END 2017-03-21 21:38 ==
LOC: NEPD 20:53
DX: Z02.89 Encounter for other administrative examinations (principal); R94.31 Abnormal electrocardiogram [ECG] [EKG]; I50.9 Heart failure, unspecified; I10 Essential (primary) hypertension; Z72.0 Tobacco use
CPT/HCPCS: 93005; 99283

== ENCOUNTER 2017-04-07 21:42 | Emergency (ER) | payer OTHER ==
[~2017-04-07] VITALS: Ht 175.3 cm; Wt 56.0 kg
[2017-04-07 21:45] VITALS: BP 107/83; PULSE 110; RESP 16; O2SAT 98
[2017-04-07] MEDS ORDERED: LIDOCAINE 1%/EPINEPHrine 1:100,000 SOLN 20 ML VIAL INFIL ONE (22:00)
[2017-04-07] MEDS ORDERED: TETANUS/DIPHTHERIA TOXOID ADULT 0.5 ML VIAL IM ONE (22:00)
[2017-04-07] MEDS ORDERED: AMOX500C PO (22:22)
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
[2017-04-07] MEDS ORDERED: AMOXICILLIN (TRIHYDRATE) 500 MG CAP PO ONE (22:30)
== END 2017-04-07 22:51 | disposition home or self-care (01) ==
LOC: NEPK 21:42
DX: S01.511A Laceration without foreign body of lip, initial encounter (principal); Z23 Encounter for immunization; Y04.2XXA Assault by strike against or bumped into by another person, initial encounter; Y93.9 Activity, unspecified; Y92.9 Unspecified place or not applicable; Y99.9 Unspecified external cause status; I47.1 Supraventricular tachycardia; F41.8 Other specified anxiety disorders; Z79.01 Long term (current) use of anticoagulants; I42.9 Cardiomyopathy, unspecified; I10 Essential (primary) hypertension; I25.2 Old myocardial infarction; I50.9 Heart failure, unspecified; F17.210 Nicotine dependence, cigarettes, uncomplicated; F14.10 Cocaine abuse, uncomplicated
CPT/HCPCS: 12051; 90471; 90714

== ENCOUNTER 2017-04-18 13:49 | Emergency (ER) | payer OTHER ==
[~2017-04-18] VITALS: Ht 175.3 cm; Wt 52.3 kg
[~2017-04-18 13:49] MED LIST changes: +AMOX500C PO
[2017-04-18 14:02] VITALS: BP 101/75; PULSE 89; RESP 16; O2SAT 98
--- NOTE | 2017-04-18 14:19 | PD ---
HPI Chief Complaint: Wound/Suture/Staple Re-Check Time Seen by Provider: 14:00 Travel History International Travel<30 days: No Contact w/Intl Traveler<30days: No Traveled to known affect area: No History of Present Illness HPI 41-year-old male presents emergency department for suture removal. Patient denies any complications with the wound. Sutures are placed in April 07, 2017. PFSH Past Medical History Hx Anticoagulant Therapy: Yes (XARELTO) Autoimmune Disease: No Blood Disorders: No Anxiety: Yes Depression: Yes Heart Rhythm Problems: Yes ([place], [place]) Cancer: No Cardiac Catheterization: Yes Cardiomyopathy: Yes Cardiovascular Problems: Yes ([place]) High Cholesterol: No Chemotherapy: No Chest Pain: Yes Congestive Heart Failure: Yes Cirrhosis: Yes Cerebrovascular Accident: No Diabetes: No Diminished Hearing: Yes (BILATERAL - [place]) Endocrine: No Gastrointestinal Disorders: Yes (ELEVATED LIVER ENZYMES) GERD: Yes Glaucoma: No Genitourinary: Yes Hepatitis: No Hiatal Hernia: No Heparin Induced Thrombocytopen: No Hypertension: Yes Immune Disorder: No Implanted Vascular Access Dvce: No Musculoskeletal: Yes Neurologic: No Psychiatric: Yes Reproductive: No Respiratory: No Immunizations Current: No Myocardial Infarction: Yes Pneumonia: Yes Radiation Therapy: No Sickle Cell Disease: No Thyroid Disease: No Ulcer: Yes Past Surgical History Abdominal Surgery: Yes (EXPLORATORY LAP) AICD: No Appendectomy: No Arteriovenous Shunt: No Body Medical Devices: pacemaker Cholecystectomy: No Coronary Artery Bypass Graft: No Ear Surgery: No Endocrine Surgery: No Eye Surgery: No Gynecologic Surgery: No Hysterectomy: No Insulin Pump: No Joint Replacement: No Neurologic Surgery: No Oral Surgery: Yes (TEETH EXTRACTIONS) Pacemaker: No Other Surgery: No Social History Alcohol Use: Yes (beer / liquor every day last drink yesterday ) Tobacco Use: Yes (1/4 pack per day) Substance Use: Yes (COCAINE + 1 MONTH AGO) Allergies-Medications (Allergen,Severity, Reaction): Coded Allergies: Iodine (Verified Allergy, Severe, itching, 04/18/17) Seafood (Verified Allergy, Severe, itching, 04/18/17) Reported Meds & Prescriptions Reported Meds & Active Scripts Active Amoxicillin 500 Mg Cap 500 Mg PO TID Pepcid (Famotidine) 20 Mg Tab 20 Mg PO BID Coreg (Carvedilol) 12.5 Mg Tab 12.5 Mg PO BID Reported Xarelto (Rivaroxaban) 20 Mg Tab 20 Mg PO DAILY Isosorbide Mononitrate ER (Isosorbide Mononitrate) 30 Mg Tahir 30 Mg PO DAILY Digoxin 0.25 Mg Tab 0.25 Mg PO DAILY Furosemide 40 Mg Tab 40 Mg PO BID Omeprazole 20 Mg Tab 20 Mg PO DAILY Mirtazapine ODT (Mirtazapine) 30 Mg Tab 30 Mg PO HS Ramipril 5 Mg Cap 5 Mg PO DAILY Quetiapine (Quetiapine Fumarate) 25 Mg Tab 25 Mg PO HS Klor-Con 10 (Potassium Chloride) 10 Meq Tab 20 Meq PO DAILY Review of Systems Except as stated in HPI: all other systems reviewed are Neg General / Constitutional: No: Fever Eyes: No: Visual changes HENT: No: Headaches Cardiovascular: No: Chest Pain or Discomfort Respiratory: No: Shortness of Breath Gastrointestinal: No: Abdominal Pain Genitourinary: No: Dysuria Musculoskeletal: No: Pain Physical Exam Narrative GENERAL: Alert, well-appearing male. SKIN: Focused skin assessment warm/dry. Well-healed laceration upper lip with [address] HEAD: Atraumatic. Normocephalic. EYES: Pupils equal and round. No scleral icterus. No injection or drainage. ENT: No nasal bleeding or discharge. Mucous membranes pink and moist. NECK: Trachea midline. No JVD. PSYCHIATRIC: Appropriate mood and affect; insight and judgment normal. Data Data Last Documented VS Vital Signs Date Time Temp Pulse Resp B/P Pulse Ox O2 Delivery O2 Flow Rate FiO2 04/18/17 14:02 89 16 101/75 98 Room Air MDM Medical Decision Making Medical Screen Exam Complete: Yes Emergency Medical Condition: Yes Differential Diagnosis Suture removal, wound check Narrative Course 41-year-old male presents emergency department for suture removal. Patient denies any complications with the wound. 5 sutures removed from upper lip. Wound is well healed and approximated. Patient tolerated procedure well. Diagnosis Primary Impression: Visit for suture removal Referrals: Primary Care Physician Disposition: 01 DISCHARGE HOME Condition: Stable Ashlee Ashley Apr 18, 2017 14:19
== END 2017-04-18 15:37 | disposition home or self-care (01) ==
LOC: NEPK 13:49
DX: S01.511D Laceration without foreign body of lip, subsequent encounter (principal); X58.XXXD Exposure to other specified factors, subsequent encounter; Z48.02 Encounter for removal of sutures
CPT/HCPCS: 99281

== ENCOUNTER 2017-04-26 16:06 | Emergency (ER) | payer OTHER ==
[2017-04-26] VITALS (7 sets, daily range): BP systolic 107–121; BP diastolic 80–95; PULSE 78–97; RESP 18–28; TEMP 97.7; O2SAT 97–100
[~2017-04-26] VITALS: Ht 175.3 cm; Wt 70.0 kg
--- NOTE | 2017-04-26 16:33 | PD ---
HPI Chief Complaint: Chest Pain Time Seen by Provider: 16:08 Travel History International Travel<30 days: No Contact w/Intl Traveler<30days: No Traveled to known affect area: No History of Present Illness HPI 41 year old male with a history of myocardial infarction 1 year ago, heart failure, pancreatitis, and liver failure complaining of pressure like chest pain for the past 11 hours. The pain is diffuse across the chest. Associated symptoms include nausea and shortness of breath. He states that this chest pain feels different than it did with the [place] 1 year ago. He denies fever, abdominal pain, vomiting, coughing, and diarrhea. He smokes cigarettes and drinks alcohol daily. He denies any illicit drug use. He took aspirin but no nitro today. Echocardiogram 4 months ago had an ejection fraction of 20-25%. PFSH Past Medical History Hx Anticoagulant Therapy: Yes (XARELTO ) Autoimmune Disease: No Blood Disorders: No Anxiety: Yes Depression: Yes Heart Rhythm Problems: Yes ([place], [place]) Cancer: No Cardiac Catheterization: Yes Cardiomyopathy: Yes Cardiovascular Problems: Yes High Cholesterol: No Chemotherapy: No Chest Pain: Yes Congestive Heart Failure: Yes Cirrhosis: Yes Cerebrovascular Accident: No Diabetes: No Diminished Hearing: Yes (BILATERAL - [place]) Endocrine: No Gastrointestinal Disorders: Yes (ELEVATED LIVER ENZYMES) GERD: Yes Glaucoma: No Genitourinary: Yes Hepatitis: No Hiatal Hernia: No Heparin Induced Thrombocytopen: No Hypertension: Yes Immune Disorder: No Implanted Vascular Access Dvce: No Musculoskeletal: Yes Neurologic: No Psychiatric: Yes Reproductive: No Respiratory: No Immunizations Current: No Myocardial Infarction: Yes Pneumonia: Yes Radiation Therapy: No Sickle Cell Disease: No Thyroid Disease: No Ulcer: Yes Tetanus Vaccination: < 5 Years Influenza Vaccination: No Past Surgical History Abdominal Surgery: Yes (EXPLORATORY LAP) AICD: No Appendectomy: No Arteriovenous Shunt: No Body Medical Devices: pacemaker Cholecystectomy: No Coronary Artery Bypass Graft: No Ear Surgery: No Endocrine Surgery: No Eye Surgery: No Gynecologic Surgery: No Hysterectomy: No Insulin Pump: No Joint Replacement: No Neurologic Surgery: No Oral Surgery: Yes (TEETH EXTRACTIONS) Pacemaker: No Other Surgery: No Family History Family Myocardial Infarction: Yes (MOTHER/GRANDMOTHER) Social History Alcohol Use: Yes (beer / liquor every day last drink yesterday ) Tobacco Use: Yes (1/4 pack per day) Substance Use: Yes (COCAINE use 10 MONTH AGO) Allergies-Medications (Allergen,Severity, Reaction): Coded Allergies: Iodine (Verified Allergy, Severe, itching, 04/18/17) Seafood (Verified Allergy, Severe, itching, 04/18/17) Reported Meds & Prescriptions Reported Meds & Active Scripts Active Coreg (Carvedilol) 12.5 Mg Tab 12.5 Mg PO BID Reported Klor-Con M20 (Potassium Chloride Microencaps) 20 Meq Tab 20 Meq PO DAILY Xarelto (Rivaroxaban) 20 Mg Tab 20 Mg PO DAILY Isosorbide Mononitrate ER (Isosorbide Mononitrate) 30 Mg Tahir 30 Mg PO DAILY Digoxin 0.25 Mg Tab 0.25 Mg PO DAILY Furosemide 40 Mg Tab 40 Mg PO BID Mirtazapine ODT (Mirtazapine) 30 Mg Tab 30 Mg PO HS Ramipril 5 Mg Cap 5 Mg PO DAILY Quetiapine (Quetiapine Fumarate) 25 Mg Tab 25 Mg PO HS Review of Systems Except as stated in HPI: all other systems reviewed are Neg General / Constitutional: No: Fever, Chills HENT: No: Headaches Cardiovascular: Positive: Chest Pain or Discomfort, No: Palpitations, Syncope Respiratory: Positive: Shortness of Breath, No: Cough Gastrointestinal: Positive: Nausea, No: Vomiting, Diarrhea, Abdominal Pain Physical Exam Narrative GENERAL: Appears thin. Sitting comfortably. SKIN: Warm and dry. HEAD: Atraumatic. Normocephalic. EYES: Pupils equal and round. Scleral icterus present. No injection or drainage. ENT: No nasal bleeding or discharge. Mucous membranes pink and moist. NECK: Trachea midline. No JVD. CARDIOVASCULAR: Regular rate and rhythm. 2+ bilaterally equal pulses in all 4 extremities. RESPIRATORY: No accessory muscle use. Clear to auscultation. Breath sounds equal bilaterally. GASTROINTESTINAL: Abdomen soft, non-tender, nondistended. Hepatic margin palpable. Spleen not palpable. MUSCULOSKELETAL: Extremities without clubbing, cyanosis, or edema. No obvious deformities. NEUROLOGICAL: Awake and alert. No obvious cranial nerve deficits. Motor grossly within normal limits. Five out of 5 muscle strength in the arms and legs. Normal speech. PSYCHIATRIC: Appropriate mood and affect; insight and judgment normal. Data Data Last Documented VS Vital Signs Date Time Temp Pulse Resp B/P Pulse Ox O2 Delivery O2 Flow Rate FiO2 04/26/17 17:30 92 117/80 98 Nasal Cannula 2 04/26/17 17:20 24 04/26/17 16:12 97.7 Orders Electrocardiogram (04/26/17 16:32) Ckmb (Isoenzyme) Profile (04/26/17 16:32) Complete Blood Count With Diff (04/26/17 16:32) Comprehensive Metabolic Panel (04/26/17 16:32) Magnesium (Mg) (04/26/17 16:32) Prothrombin Time / Inr (Pt) (04/26/17 16:32) Act Partial Throm Time (Ptt) (04/26/17 16:32) Troponin I (04/26/17 16:32) Lipase (04/26/17 16:32) Chest, Single Ap (04/26/17 16:32) Ecg Monitoring (04/26/17 16:32) Bilateral Bp Monitoring (04/26/17 16:32) Iv Access Insert/Monitor (04/26/17 16:32) Oximetry (04/26/17 16:32) Oxygen Administration (04/26/17 16:32) Aspirin Chew (Aspirin Chew) (04/26/17 16:45) Sodium Chloride 0.9% Flush (Ns Flush) (04/26/17 16:45) Nitroglycerin Sl (Nitrostat Sl) (04/26/17 16:45) CKMB (04/26/17 16:15) CKMB% (04/26/17 16:15) Ventilation & Perfusion Scan (04/26/17 ) Digoxin (04/26/17 19:24) Labs Laboratory Tests Test 04/26/17 16:15 White Blood Count 9.4 TH/MM3 Red Blood Count 4.91 MIL/MM3 Hemoglobin 14.9 GM/DL Hematocrit 43.7 % Mean Corpuscular Volume 89.0 FL Mean Corpuscular Hemoglobin 30.4 PG Mean Corpuscular Hemoglobin 34.1 % Concent Red Cell Distribution Width 13.1 % Platelet Count 163 TH/MM3 Mean Platelet Volume 11.1 FL Neutrophils (%) (Auto) 42.2 % Lymphocytes (%) (Auto) 44.1 % Monocytes (%) (Auto) 10.4 % Eosinophils (%) (Auto) 2.7 % Basophils (%) (Auto) 0.6 % Neutrophils # (Auto) 4.0 TH/MM3 Lymphocytes # (Auto) 4.2 TH/MM3 Monocytes # (Auto) 1.0 TH/MM3 Eosinophils # (Auto) 0.3 TH/MM3 Basophils # (Auto) 0.1 TH/MM3 CBC Comment DIFF FINAL Differential Comment Prothrombin Time 11.8 SEC Prothromb Time International 1.1 RATIO Ratio Activated Partial 24.3 SEC Thromboplast Time Sodium Level 138 MEQ/L Potassium Level 4.5 MEQ/L Chloride Level 107 MEQ/L Carbon Dioxide Level 17.4 MEQ/L Anion Gap 14 MEQ/L Blood Urea Nitrogen 18 MG/DL Creatinine 1.25 MG/DL Estimat Glomerular Filtration 77 ML/MIN Rate Random Glucose 82 MG/DL Calcium Level 8.6 MG/DL Magnesium Level 1.5 MG/DL Total Bilirubin 1.9 MG/DL Aspartate Amino Transf 70 U/L (AST/SGOT) Alanine Aminotransferase 57 U/L (ALT/SGPT) Alkaline Phosphatase 78 U/L Total Creatine Kinase 191 U/L Creatine Kinase MB 5.9 NG/ML Troponin I 0.10 NG/ML Total Protein 7.0 GM/DL Albumin 3.4 GM/DL Lipase 93 U/L [facility] Medical Decision Making Medical Screen Exam Complete: Yes Emergency Medical Condition: Yes Interpretation(s) Sinus rhythm with voltage criteria for LVH, there is some ST elevation in V2 which appears to be chronic comparison to previous EKGs. This is an abnormal EKG. I do not think that this EKG meets acute STEMI criteria. Differential Diagnosis ACS, [place], PE, pneumonia, polysubstance abuse, chronic pain. Narrative Course Patient 41-year-old male presents emergency department for evaluation of chest pain. Both typical and atypical markers. Troponin minimally elevated at 0.1, EKG is absolutely no different than the EKG from last month. Patient was discussed with Dr. Galarza who on her last constipation with this patient suggested that he is not a candidate for aggressive management of his cardiomyopathy considering he continues to use illicit substances as well as alcohol and tobacco. Patient still having pain. And still with shortness of breath has a history DVT and has documented noncompliance with medication at home. Has allergy to iodine and seafood and therefore a VQ scan has been ordered. At this point after discussion with Dr. Galarza think the patient may be able to be managed as an outpatient. This would be determined by reassessment by Dr. Aguilar whom the patient's care was discussed at 1900 shift change with digoxin level and V/Q scan still pending. Flakito Reece MD Apr 26, 2017 16:33 Flakito Reece MD Apr 26, 2017 16:33
[2017-04-26] MEDS ORDERED: SODIUM CHLORIDE 0.9% FLUSH 10 ML FLUSH IVF PRN (16:45)
[2017-04-26] MEDS ORDERED: ASPIRIN 81 MG CHEW TAB PO ONE (16:45)
[2017-04-26] MEDS ORDERED: NITROGLYCERIN 0.4 MG SL 25 TABS/BTL SL ONE (16:45)
--- NOTE | 2017-04-26 16:58 | RADRPT ---
EXAM DATE/TIME: 04/26/2017 16:36 [facility] COMPARISON: No previous studies available for comparison. INDICATIONS : Chest pain and short of breath. MEDICAL HISTORY : Myocardial infarction. Congestive heart failure. Cirrhosis. Cardiomyopathy. HTN. PHOEBE. Heart attack. L iver failure. SURGICAL HISTORY : Exploratory laproscopy. Oral surgery, teeth extraction. Cardiac cath. ENCOUNTER: Initial ACUITY: 1 day PAIN SCORE: 8/10 LOCATION: Bilateral chest FINDINGS: A single view of the chest demonstrates hyperinflation with minimal right basilar density. Heart mild ly enlarged. Left lung clear. Osseous structures are intact. CONCLUSION: 1. Minimal right basilar density could be atelectasis or infiltrate. 2. Mild cardiomegaly. Willy Payne MD on April 26, 2017 at 16:56 Board Certified Radiologist. This report was verified electronically.
[2017-04-26] MEDS ORDERED: POTA-245 PO (17:08)
[2017-04-26 17:24] LABS: BASOPHIL # 0.1 TH/MM3 (0-0.2); BASOPHIL % 0.6 % (0.0-2.0); EOSINOPHIL # 0.3 TH/MM3 (0-0.4); EOSINOPHIL % 2.7 % (0.0-4.0); HEMATOCRIT 43.7 % (39.0-51.0); HEMO FLAGS DIFF FINAL; LYMPH % 44.1 % (9.0-44.0); LYMPHOCYTE # 4.2 TH/MM3 (1.0-4.8); MEAN CORPUSCULAR HEMOGLOBIN 30.4 PG (27.0-34.0); MEAN CORPUSCULAR HGB CONC 34.1 % (32.0-36.0); MONO % 10.4 % (0.0-8.0); NEUT % 42.2 % (16.0-70.0); PLATELET COUNT 163 TH/MM3 (150-450); RED BLOOD COUNT 4.91 MIL/MM3 (4.50-5.90); RED CELL DISTRIBUTION WIDTH 13.1 % (11.6-17.2); WHITE BLOOD COUNT 9.4 TH/MM3 (4.0-11.0)
[2017-04-26 17:38] LABS: APTT (PATIENT) 24.3 SEC (24.3-30.1); INTERNATIONAL NORMALIZED RATIO 1.1 RATIO; PROTHROMBIN TIME - PATIENT 11.8 SEC (9.8-11.6)
[2017-04-26 17:45] LABS: ALKALINE PHOSPHATASE 78 U/L (45-117); CREATINE KINASE 191 U/L (39-308); TOTAL BILIRUBIN ADULT 1.9 MG/DL (0.2-1.0)
[2017-04-26 17:51] LABS: ALT (GPT) 57 U/L (12-78); ANION GAP 14 MEQ/L (5-15); AST (GOT) 70 U/L (15-37); BICARBONATE 17.4 MEQ/L (21.0-32.0); BLOOD UREA NITROGEN 18 MG/DL (7-18); CHLORIDE 107 MEQ/L (98-107); GLOMERULAR FILTRATION RATE 77 ML/MIN (>89); MAGNESIUM 1.5 MG/DL (1.5-2.5); POTASSIUM 4.5 MEQ/L (3.5-5.1); SODIUM (NA) 138 MEQ/L (136-145)
[2017-04-26 17:58] LABS: CKMB 5.9 NG/ML (0.5-3.6)
--- NOTE | 2017-04-26 19:09 | PD ---
Physical Exam Date Seen by Provider: Apr 26, 2017 Time Seen by Provider: 19:08 Narrative accepted transfer of care from Dr. Reece GENERAL: Well-developed thin male in no acute distress no respiratory distress SKIN: Warm and dry. HEAD: Normocephalic. EYES: No scleral icterus. No injection or drainage. NECK: Supple, trachea midline. No JVD or lymphadenopathy. CARDIOVASCULAR: Regular rate and rhythm without murmurs, gallops, or rubs. RESPIRATORY: Breath sounds equal bilaterally except for a few crackles to the right base. No accessory muscle use. GASTROINTESTINAL: Abdomen soft, non-tender, nondistended. MUSCULOSKELETAL: No cyanosis, or edema. Radial and dorsalis pedis pulses 2+ to palpation BACK: Nontender without obvious deformity. No CVA tenderness. Data Data Last Documented VS Vital Signs Date Time Temp Pulse Resp B/P Pulse Ox O2 Delivery O2 Flow Rate FiO2 04/27/17 02:29 67 18 108/75 98 Room Air 04/26/17 22:08 2 04/26/17 16:12 97.7 Orders Electrocardiogram (04/26/17 16:32) Ckmb (Isoenzyme) Profile (04/26/17 16:32) Complete Blood Count With Diff (04/26/17 16:32) Comprehensive Metabolic Panel (04/26/17 16:32) Magnesium (Mg) (04/26/17 16:32) Prothrombin Time / Inr (Pt) (04/26/17 16:32) Act Partial Throm Time (Ptt) (04/26/17 16:32) Troponin I (04/26/17 16:32) Lipase (04/26/17 16:32) Chest, Single Ap (04/26/17 16:32) Ecg Monitoring (04/26/17 16:32) Bilateral Bp Monitoring (04/26/17 16:32) Iv Access Insert/Monitor (04/26/17 16:32) Oximetry (04/26/17 16:32) Oxygen Administration (04/26/17 16:32) Aspirin Chew (Aspirin Chew) (04/26/17 16:45) Sodium Chloride 0.9% Flush (Ns Flush) (04/26/17 16:45) Nitroglycerin Sl (Nitrostat Sl) (04/26/17 16:45) CKMB (04/26/17 16:15) CKMB% (04/26/17 16:15) Ventilation & Perfusion Scan (04/26/17 ) Digoxin (04/26/17 19:24) Ketorolac Inj (Toradol Inj) (04/26/17 20:15) B-Type Natriuretic Peptide (04/26/17 20:13) Drug Screen, Random Urine (04/26/17 20:13) Us Leg Venous Doppler Bilat (04/26/17 ) Troponin I (04/26/17 22:26) Rivaroxaban (Xarelto) (04/26/17 22:30) Acetaminophen (Tylenol) (04/26/17 23:00) Ondansetron Inj (Zofran Inj) (04/27/17 02:00) Furosemide Inj (Lasix Inj) (04/27/17 02:00) Furosemide (Lasix) (04/27/17 02:45) Labs Laboratory Tests Test 04/26/17 04/26/17 04/26/17 04/26/17 16:15 20:25 22:15 22:40 White Blood Count 9.4 TH/MM3 Red Blood Count 4.91 MIL/MM3 Hemoglobin 14.9 GM/DL Hematocrit 43.7 % Mean Corpuscular Volume 89.0 FL Mean Corpuscular Hemoglobin 30.4 PG Mean Corpuscular Hemoglobin 34.1 % Concent Red Cell Distribution Width 13.1 % Platelet Count 163 TH/MM3 Mean Platelet Volume 11.1 FL Neutrophils (%) (Auto) 42.2 % Lymphocytes (%) (Auto) 44.1 % Monocytes (%) (Auto) 10.4 % Eosinophils (%) (Auto) 2.7 % Basophils (%) (Auto) 0.6 % Neutrophils # (Auto) 4.0 TH/MM3 Lymphocytes # (Auto) 4.2 TH/MM3 Monocytes # (Auto) 1.0 TH/MM3 Eosinophils # (Auto) 0.3 TH/MM3 Basophils # (Auto) 0.1 TH/MM3 CBC Comment DIFF FINAL Differential Comment Prothrombin Time 11.8 SEC Prothromb Time International 1.1 RATIO Ratio Activated Partial 24.3 SEC Thromboplast Time Sodium Level 138 MEQ/L Potassium Level 4.5 MEQ/L Chloride Level 107 MEQ/L Carbon Dioxide Level 17.4 MEQ/L Anion Gap 14 MEQ/L Blood Urea Nitrogen 18 MG/DL Creatinine 1.25 MG/DL Estimat Glomerular Filtration 77 ML/MIN Rate Random Glucose 82 MG/DL Calcium Level 8.6 MG/DL Magnesium Level 1.5 MG/DL Total Bilirubin 1.9 MG/DL Aspartate Amino Transf 70 U/L (AST/SGOT) Alanine Aminotransferase 57 U/L (ALT/SGPT) Alkaline Phosphatase 78 U/L Total Creatine Kinase 191 U/L Creatine Kinase MB 5.9 NG/ML Troponin I 0.10 NG/ML 0.09 NG/ML Total Protein 7.0 GM/DL Albumin 3.4 GM/DL Lipase 93 U/L Digoxin Level 0.1 NG/ML B-Type Natriuretic Peptide 1837 PG/ML Urine Opiates Screen NEG Urine Barbiturates Screen NEG Urine Amphetamines Screen NEG Urine Benzodiazepines Screen NEG Urine Cocaine Screen NEG Urine Cannabinoids Screen NEG MDM Medical Record Reviewed: Yes Supervised Visit with GAURANG: No Interpretation(s) Last Impressions Chest X-Ray 04/26/17 1632 Signed Impressions: Service Date/Time: Wednesday, April 26, 2017 16:36 - CONCLUSION: 1. Minimal right basilar density could be atelectasis or infiltrate. 2. Mild cardiomegaly. Willy Payne MD Lung Scan-V Nuclear Medicine 04/26/17 0000 Signed Impressions: Service Date/Time: Wednesday, April 26, 2017 21:03 - CONCLUSION: Intermediate probability for pulmonary embolism. Willy Payne MD CBC & BMP Diagram 04/26/17 16:15 Vital Signs Date Time Temp Pulse Resp B/P Pulse Ox O2 Delivery O2 Flow Rate FiO2 04/26/17 22:08 78 18 107/80 98 Nasal Cannula 2 04/26/17 20:10 119/95 97 Nasal Cannula 04/26/17 20:10 97 Room Air 04/26/17 19:54 96 22 113/90 99 Nasal Cannula 2 04/26/17 17:30 92 117/80 98 Nasal Cannula 2 04/26/17 17:20 94 113/81 04/26/17 17:20 94 24 113/81 98 Nasal Cannula 04/26/17 17:15 91 116/89 04/26/17 17:15 94 28 113/81 98 Nasal Cannula 04/26/17 17:15 98 Nasal Cannula 2 04/26/17 16:12 97.7 95 21 121/87 100 Room Air 04/26/17 16:12 Room Air 04/26/17 16:12 97.7 95 21 121/87 100 Differential Diagnosis accepted transfer of care from Dr. Reece; please refer to his dictation Narrative Course accepted transfer of care from Dr. Reece; follow up V/Q scan and disposition Patient sent for VQ scan Upon return from VQ scan identified to have intermediate probability for PE; patient has not been on XARELTO 2 days; ultrasound bilateral lower extremities ordered; patient's case discussed with on-call medicine service aware of patient 's history of nonischemic cardiomyopathy chronic troponin I elevations and VQ scan consistent with intermediate probability for PE. Patient's case had previously been discussed with on-call cardiology Dr. Galarza, per Dr Reece, who encouraged patient to be discharged for outpatient follow-up as chronically has elevation of his troponins; patient reportedly informed of plan for discharge and subsequently identified to complain of shortness of breath therefore is VQ scan was ordered this was discussed due to intermittent probability for PE with on-call medicine; medicine requested patient be restarted on Xarelto and medicine habilitation specialist reports no indication for admission at this time as patient has been off of his medication which needs to be restarted and has historically been noncompliant and they will be starting Xarelto again during observation admission which can be started in the emergency department without need for observation admission also unable to enforce patient's outpatient compliance. Patient administered Xarelto in the ED. BLE U/S negative for DVT. Patient subsequently developed complaint of nausea without vomiting and administered Zofran. Patient able to take oral hydration after Zofran. Patient able to ambulate about the emergency department without complaint of shortness of breath or chest pain. Patient has already been given Xarelto in the emergency department and reports that he actually has access to all of his medications which reportedly has been compliant with until 2 days ago when he traveled to [facility] to visit his mother and all of his medications reportedly are at his sister's house in [place] and he did not have transportation reportedly to get his medication. Patient reports he can get access to his medications from his sisters home. Patient has had extensive discussion regarding the need for his compliance with his medications and states he understands. Patient feels well after ambulating in the emergency department without becoming symptomatic is now stable for outpatient management with known chronically essentially unchanged abnormal range markers; patient is aware of diagnostic results, need for compliance with medical management, and is to follow-up with his managing physician, Dr. Santillan this week. Physician Communication Physician Communication discussed with [facility] MD Dr Rich --no need to admit as cardiology had recommended no need for admit for baseline elevated troponins and can restart Xarelto for intermediate risk for PE by V/Q as this is what will be started as an OBS patient with need for patient to continue Xarelto as an outpatient and patient has access to outpatient Xarelto. Diagnosis Primary Impression: Atypical chest pain Additional Impressions: Chronic systolic CHF (congestive heart failure) Pulmonary embolism Qualified Code: I26.99 - Other pulmonary embolism without acute cor pulmonale , unspecified chronicity Referrals: Primary Care Physician [address] Santillan Friday Patient Instructions: General Instructions Additional Instruction: Continue current outpatient medications as presently prescribed including Xarelto do not miss any dosages of your medications Follow-up with your primary care provider Dr. Santillan call office on Friday to schedule follow-up appointment on Friday Return to the emergency department for any concerns or change in condition Disposition: 01 DISCHARGE HOME Condition: Stable Ashleigh Aguilar MD Apr 26, 2017 19:09
[2017-04-26] MEDS ORDERED: KETOROLAC TROMETHAMINE 30 MG/ML (IVP) VIAL IV PUSH ONE (20:15)
--- NOTE | 2017-04-26 21:55 | RADRPT ---
EXAM DATE/TIME: 04/26/2017 21:03 [facility] COMPARISON: CHEST SINGLE AP, April 26, 2017, 16:36. LUNG VENTILATION & PERFUSION SCAN, December 24, 2014, 18:28. INDICATIONS : Dyspnea. DOSE: 1.3 mCi Tc99m DTPA 8.8 mCi Tc99m MAA MEDICAL HISTORY : Renal insufficiency. Deep venous thrombosis. Myocardial infarction. [place]. SVT. Smoker. SURGICAL HISTORY : Pacemaker. ENCOUNTER: Initial ACUITY: 1 day PAIN SCALE: 0/10 LOCATION: chest TECHNIQUE: Following five minutes of tidal breathing of DTPA aerosol, planar images of the lungs were performed in eight projections. The patient was then injected with MAA, and eight-view perfusion scan was perf ormed. FINDINGS: There is a heterogeneous pattern of aerosol delivery to the periphery of both lungs. No focal ventil atory defects are seen. The perfusion lung scan demonstrates defects at the left lower lobe and left upper lobe. CONCLUSION: Intermediate probability for pulmonary embolism. Willy Payne MD on April 26, 2017 at 21:51 Board Certified Radiologist. This report was verified electronically.
[2017-04-26] MEDS ORDERED: RIVAROXABAN 20 MG TAB PO ONE (22:30)
[2017-04-26 22:31] LABS: AMPHETAMINE, URINE NEG (NEG); BARBITURATES, URINE NEG (NEG); COCAINE, URINE NEG (NEG)
[2017-04-26] MEDS ORDERED: ACETAMINOPHEN 325 MG TAB PO ONE (23:00)
--- NOTE | 2017-04-27 00:04 | RADRPT ---
EXAM DATE/TIME: 04/26/2017 22:38 [facility] COMPARISON: No previous studies available for comparison. INDICATIONS : Bilateral leg discoloration. MEDICAL HISTORY : Hypertension. Congestive heart failure. Gastroesophageal reflux disease. Myocardial infarction. Card iomyopathy. Ulcer. Liver disease. Anxiety. Depression. Cirrhosis. Acute kidney infection. SURGICAL HISTORY : Exploratory laproscopy. ENCOUNTER: Initial ACUITY: PAIN SCORE: Non-responsive LOCATION: Bilateral leg. TECHNIQUE: Venous ultrasound of the left and right leg was performed from the inguinal ligament to the proximal calf. Real-time, color Doppler and spectral tracing, compression and augmentation techniques were us ed. FINDINGS: RIGHT LEG: There is normal compressibility of the deep venous system from the inguinal region to the proximal ca lf. No echogenic clot is seen in the lumen of the common femoral, femoral, popliteal, and posterior tibial veins. There is a normal response of the venous system to proximal and distal augmentation an d respiration. LEFT LEG: There is normal compressibility of the deep venous system from the inguinal region to the proximal ca lf. No echogenic clot is seen in the lumen of the common femoral, femoral, popliteal, and posterior tibial veins. There is a normal response of the venous system to proximal and distal augmentation an d respiration. CONCLUSION: Normal examination. Satya Méndez MD on April 27, 2017 at 0:02 Board Certified Radiologist. This report was verified electronically.
[2017-04-27] MEDS ORDERED: FUROSEMIDE 20 MG/2 ML VIAL IV PUSH ONE (02:00)
[2017-04-27] MEDS ORDERED: ONDANSETRON HCL 4 MG/2 ML VIAL IV PUSH ONE (02:00)
[2017-04-27 02:29] VITALS: BP 108/75; PULSE 67; RESP 18; O2SAT 98
[2017-04-27] MEDS ORDERED: FUROSEMIDE 20 MG TAB PO ONE (02:45)
--- NOTE | 2017-04-28 08:34 | EKG ---
Date Performed: 04/26/2017 Time Performed: 16:16:20 PTAGE: 41 years EKG: Sinus rhythm POSSIBLE RIGHT ATRIAL ENLARGEMENT LEFT ATRIAL ENLARGEMENT LEFT ANTERIOR FASCICULAR BLOCK Left ventri cular hypertrophy Repolarization abnormality Poor R wave progression Possible hyperacute T-waves Cons ider anterior myocardial infarction - age indeterminate ACUTE [place] PREVIOUS TRACING : 03/21/2017 21.06 DOCTOR: Juan Pablo Cartagena Interpretating Date/Time 04/28/2017 08:32:22
== END 2017-04-27 02:51 | disposition home or self-care (01) ==
LOC: NEPC 16:06
DX: R07.89 Other chest pain (principal); I50.22 Chronic systolic (congestive) heart failure; I26.99 Other pulmonary embolism without acute cor pulmonale; F17.210 Nicotine dependence, cigarettes, uncomplicated; Z79.899 Other long term (current) drug therapy
CPT/HCPCS: 71010; 78582; 80053; 80162; 80307; 82550; 82552; 83690; 83735; 83880; 84484; 85025; 85610; 85730; 93005; 93970; 96374; 96375; 99285; A9540; A9567; J1885; J2405

== ENCOUNTER 2017-05-02 20:06 | Observation (INO) | payer OTHER ==
[~2017-05-02] VITALS: Ht 175.3 cm; Wt 50.0 kg
[~2017-05-02 20:06] MED LIST changes: -AMOX500C PO; -FAMO1TAB37 PO; -OMEP20TA PO; -POTA-243 PO; +POTA-245 PO
[2017-05-02 20:13] VITALS: BP 115/94; PULSE 95; RESP 20; TEMP 98.7; O2SAT 99
[2017-05-02] MEDS ORDERED: SODIUM CHLOR 0.9% 1000 ML INJ 1,000 ML IV SCH ×2 (20:19→22:28)
--- NOTE | 2017-05-02 20:19 | PD ---
HPI Chief Complaint: Abdominal pain and Vomiting Time Seen by Provider: 20:13 Travel History International Travel<30 days: No Contact w/Intl Traveler<30days: No History of Present Illness HPI 41-year-old Afro-[place] male brought in by ambulance with 2 day history of abdominal pain, nausea, and vomiting. Patient denies fever or chills. Patient is a poor historian. Patient is unsure if he may have hepatitis. Patient has a history of angina for which he takes isosorbide, and hypertension for which he takes medication as well. Patient states has been unable to keep anything down for the past 2 days. He denies urinary symptoms although he states his urine is much darker than normal. He has had diarrhea as well for the past 2 days. He denies chest pain or shortness of breath. He denies cough. Patient has no history of sickle cell in the past. He has allergies to iodine and seafood. PFSH Past Medical History Hx Anticoagulant Therapy: Yes (XARELTO ) Autoimmune Disease: No Blood Disorders: No Anxiety: Yes Depression: Yes Heart Rhythm Problems: Yes ([place]T, [place]) Cancer: No Cardiac Catheterization: Yes Cardiomyopathy: Yes Cardiovascular Problems: Yes High Cholesterol: No Chemotherapy: No Chest Pain: Yes Congestive Heart Failure: Yes Cirrhosis: Yes Cerebrovascular Accident: No Diabetes: No Diminished Hearing: Yes (BILATERAL - [place]) Endocrine: No Gastrointestinal Disorders: Yes (ELEVATED LIVER ENZYMES) GERD: Yes Glaucoma: No Genitourinary: Yes Hepatitis: No Hiatal Hernia: No Heparin Induced Thrombocytopen: No Hypertension: Yes Immune Disorder: No Implanted Vascular Access Dvce: No Musculoskeletal: Yes Neurologic: No Psychiatric: Yes Reproductive: No Respiratory: No Immunizations Current: No Myocardial Infarction: Yes Pneumonia: Yes Radiation Therapy: No Sickle Cell Disease: No Thyroid Disease: No Ulcer: Yes Past Surgical History Abdominal Surgery: Yes (EXPLORATORY LAP) AICD: No Appendectomy: No Arteriovenous Shunt: No Body Medical Devices: pacemaker Cholecystectomy: No Coronary Artery Bypass Graft: No Ear Surgery: No Endocrine Surgery: No Eye Surgery: No Gynecologic Surgery: No Hysterectomy: No Insulin Pump: No Joint Replacement: No Neurologic Surgery: No Oral Surgery: Yes (TEETH EXTRACTIONS) Pacemaker: No Other Surgery: No Social History Alcohol Use: Yes (beer / liquor every day last drink yesterday ) Tobacco Use: Yes (1/4 pack per day) Substance Use: Yes (COCAINE use 10 MONTH AGO) Allergies-Medications (Allergen,Severity, Reaction): Coded Allergies: Iodine (Verified Allergy, Severe, itching, 04/18/17) Seafood (Verified Allergy, Severe, itching, 04/18/17) Reported Meds & Prescriptions Reported Meds & Active Scripts Active Coreg (Carvedilol) 12.5 Mg Tab 12.5 Mg PO BID Reported Omeprazole 20 Mg Tab 20 Mg PO DAILY Klor-Con M20 (Potassium Chloride Microencaps) 20 Meq Tab 20 Meq PO DAILY Xarelto (Rivaroxaban) 20 Mg Tab 20 Mg PO DAILY Isosorbide Mononitrate ER (Isosorbide Mononitrate) 30 Mg Tahir 30 Mg PO DAILY Digoxin 0.25 Mg Tab 0.25 Mg PO DAILY Furosemide 40 Mg Tab 40 Mg PO BID Mirtazapine ODT (Mirtazapine) 30 Mg Tab 30 Mg PO HS Ramipril 5 Mg Cap 5 Mg PO DAILY Quetiapine (Quetiapine Fumarate) 25 Mg Tab 25 Mg PO HS Review of Systems ROS Limitations: Poor Historian Except as stated in HPI: all other systems reviewed are Neg General / Constitutional: No: Fever Eyes: No: Visual changes HENT: No: Headaches Cardiovascular: No: Chest Pain or Discomfort Respiratory: No: Shortness of Breath Gastrointestinal: Positive: Nausea, Vomiting, Diarrhea, Abdominal Pain Genitourinary: No: Dysuria Musculoskeletal: No: Pain Skin: No Rash Neurologic: No: Weakness Psychiatric: No: Depression Endocrine: No: Polydipsia Hematologic/Lymphatic: No: Easy Bruising Physical Exam Narrative GENERAL: Patient appears in mild distress. SKIN: Warm and dry. Color. Normal turgor HEAD: Atraumatic. Normocephalic. EYES: Pupils equal and round. Mild to moderate scleral icterus. No injection or drainage. ENT: No nasal bleeding or discharge. Mucous membranes pink and moist. Pharynx is clear. Airway is patent. NECK: Trachea midline. No JVD. Supple nontender. CARDIOVASCULAR: Regular rate and rhythm. No murmurs gallops or rubs. RESPIRATORY: No accessory muscle use. Clear to auscultation. Breath sounds equal bilaterally. GASTROINTESTINAL: Abdomen soft, nondistended. Hepatic and splenic margins not palpable. Patient is very thin. He has generalized discomfort with palpation. MUSCULOSKELETAL: Extremities without clubbing, cyanosis, or edema. No obvious deformities. NEUROLOGICAL: Awake and alert. No obvious cranial nerve deficits. Motor grossly within normal limits. Five out of 5 muscle strength in the arms and legs. Normal speech. PSYCHIATRIC: Appropriate mood and affect; insight and judgment normal. Data Data Last Documented VS Vital Signs Date Time Temp Pulse Resp B/P Pulse Ox O2 Delivery O2 Flow Rate FiO2 05/02/17 20:22 99 Room Air 05/02/17 20:13 98.7 95 20 115/94 Orders Complete Blood Count With Diff (05/02/17 20:19) Comprehensive Metabolic Panel (05/02/17 20:19) Lipase (05/02/17 20:19) Lactic Acid (05/02/17 20:19) Prothrombin Time / Inr (Pt) (05/02/17 20:19) Act Partial Throm Time (Ptt) (05/02/17 20:19) Urinalysis - C+S If Indicated (05/02/17 20:19) Iv Access Insert/Monitor (05/02/17 20:19) Ecg Monitoring (05/02/17 20:19) Oximetry (05/02/17 20:19) Ondansetron Inj (Zofran Inj) (05/02/17 20:30) Sodium Chlor 0.9% 1000 Ml Inj (Ns 1000 M (05/02/17 20:19) Sodium Chloride 0.9% Flush (Ns Flush) (05/02/17 20:30) Electrocardiogram (05/02/17 20:19) Ckmb (Isoenzyme) Profile (05/02/17 20:19) Magnesium (Mg) (05/02/17 20:19) Troponin I (05/02/17 20:19) Ct Abd/Pel W/O Iv Contrast (05/02/17 20:24) CKMB (05/02/17 20:54) CKMB% (05/02/17 20:54) Labs Laboratory Tests Test 05/02/17 20:54 White Blood Count 6.3 TH/MM3 Red Blood Count 4.75 MIL/MM3 Hemoglobin 14.0 GM/DL Hematocrit 42.4 % Mean Corpuscular Volume 89.3 FL Mean Corpuscular Hemoglobin 29.4 PG Mean Corpuscular Hemoglobin 33.0 % Concent Red Cell Distribution Width 13.2 % Platelet Count 148 TH/MM3 Mean Platelet Volume 10.3 FL Neutrophils (%) (Auto) 55.4 % Lymphocytes (%) (Auto) 30.0 % Monocytes (%) (Auto) 11.2 % Eosinophils (%) (Auto) 2.1 % Basophils (%) (Auto) 1.3 % Neutrophils # (Auto) 3.5 TH/MM3 Lymphocytes # (Auto) 1.9 TH/MM3 Monocytes # (Auto) 0.7 TH/MM3 Eosinophils # (Auto) 0.1 TH/MM3 Basophils # (Auto) 0.1 TH/MM3 CBC Comment DIFF FINAL Differential Comment Prothrombin Time 12.6 SEC Prothromb Time International 1.1 RATIO Ratio Activated Partial 22.8 SEC Thromboplast Time Sodium Level 142 MEQ/L Potassium Level 4.4 MEQ/L Chloride Level 113 MEQ/L Carbon Dioxide Level 14.5 MEQ/L Anion Gap 15 MEQ/L Blood Urea Nitrogen 21 MG/DL Creatinine 1.31 MG/DL Estimat Glomerular Filtration 73 ML/MIN Rate Random Glucose 87 MG/DL Lactic Acid Level 2.9 mmol/L Calcium Level 8.7 MG/DL Magnesium Level 1.5 MG/DL Total Bilirubin 2.6 MG/DL Aspartate Amino Transf 55 U/L (AST/SGOT) Alanine Aminotransferase 58 U/L (ALT/SGPT) Alkaline Phosphatase 65 U/L Total Creatine Kinase 148 U/L Creatine Kinase MB 5.0 NG/ML Troponin I 0.11 NG/ML Total Protein 5.7 GM/DL Albumin 2.9 GM/DL Lipase 90 U/L MDM Medical Decision Making Medical Screen Exam Complete: Yes Emergency Medical Condition: Yes Medical Record Reviewed: Yes Differential Diagnosis Intractable vomiting. Abdominal pain. Hepatitis. Cardiac syndrome. Dehydration. Narrative Course Patient is medically stable at time of exam. Labs ordered including CBC, CMP, lactic acid, coagulation studies and cardiac panel. CT of the abdomen is ordered. CBC is unremarkable. CMP shows chloride of 113, carbon dioxide of 14.5, BUN of 21, creatinine 1.31, GFR 73, lactic acid elevated at 2.9, total bilirubin was 2.6, AST is 55, heart of 0.11 with CK-MB of 5.0 total protein is 5.7, albumin is 2.9 Coagulations shows PT of 12.8, INR 1.1, APTT is 22.8. CT shows small bilateral pleural effusions with groundglass opacity at both lung bases which could be an edematous or inflammatory nature. #2 small amount of free fluid in the pelvis. No free air. No bowel obstruction. Per radiologist. Patient and labs are reviewed with Dr. Fitzgerald who recommends an area patient for observation. 2220 hrs. patient was discussed with Dr. Rich who agreed to admit the patient for observation. Diagnosis Primary Impression: Intractable vomiting with nausea Qualified Code: R11.2 - Intractable vomiting with nausea, unspecified vomiting type Additional Impression: Abdominal pain Qualified Code: R10.84 - Generalized abdominal pain Admitting Information Admitting Physician Requests: Observation Condition: Stable Roman Otto May 02, 2017 20:19
[2017-05-02 20:22] VITALS: O2SAT 99
[2017-05-02] MEDS ORDERED: SODIUM CHLORIDE 0.9% FLUSH 10 ML FLUSH IV FLUSH PRN ×2 (20:30→22:30)
[2017-05-02] MEDS ORDERED: ONDANSETRON HCL 4 MG/2 ML VIAL IVP ONE (20:30)
[2017-05-02] MEDS ORDERED: OMEP20TA PO (21:10)
--- NOTE | 2017-05-02 21:27 | RADRPT ---
EXAM DATE/TIME: 05/02/2017 20:38 [facility] COMPARISON: No previous studies available for comparison. INDICATIONS : Vomiting. ORAL CONTRAST: No oral contrast ingested. RADIATION DOSE: 6.64 CTDIvol (mGy) MEDICAL HISTORY : Hypertension. Cirrhosis. SURGICAL HISTORY : None. ENCOUNTER: Initial ACUITY: 1 day PAIN SCALE: 4/10 LOCATION: abdomen TECHNIQUE: Volumetric scanning of the abdomen and pelvis was performed. Using automated exposure control and ad justment of the mA and/or kV according to patient size, radiation dose was kept as low as reasonably achievable to obtain optimal diagnostic quality images. DICOM format image data is available electro nically for review and comparison. FINDINGS: There is groundglass are airspace disease at both lung bases with small bilateral pleural effusions. Heart size is enlarged. No focal abnormality seen in the liver, spleen, adrenals, kidneys or pancreas . Probable gallstone within gallbladder. No bowel obstruction. Small amount free fluid in the pelvis. No free air. No acute bony abnormality. CONCLUSION: 1. Small bilateral pleural effusions with groundglass opacity at both lung bases which could be an ed ematous or inflammatory in nature. 2. Small amount free fluid in the pelvis. No free air. No bowel obstruction. Yinka Chan MD on May 02, 2017 at 21:20 Board Certified Radiologist. This report was verified electronically.
[2017-05-02 21:38] LABS: AUTOMATED NEUTROPHIL # 3.5 TH/MM3 (1.8-7.7); BASOPHIL # 0.1 TH/MM3 (0-0.2); BASOPHIL % 1.3 % (0.0-2.0); EOSINOPHIL # 0.1 TH/MM3 (0-0.4); EOSINOPHIL % 2.1 % (0.0-4.0); HEMATOCRIT 42.4 % (39.0-51.0); HEMO FLAGS DIFF FINAL; LYMPHOCYTE # 1.9 TH/MM3 (1.0-4.8); MEAN CELL VOLUME 89.3 FL (80.0-100.0); MEAN CORPUSCULAR HEMOGLOBIN 29.4 PG (27.0-34.0); MONO % 11.2 % (0.0-8.0); NEUT % 55.4 % (16.0-70.0); PLATELET COUNT 148 TH/MM3 (150-450); RED BLOOD COUNT 4.75 MIL/MM3 (4.50-5.90); RED CELL DISTRIBUTION WIDTH 13.2 % (11.6-17.2); WHITE BLOOD COUNT 6.3 TH/MM3 (4.0-11.0)
[2017-05-02 21:47] LABS: APTT (PATIENT) 22.8 SEC (24.3-30.1); INTERNATIONAL NORMALIZED RATIO 1.1 RATIO; PROTHROMBIN TIME - PATIENT 12.6 SEC (9.8-11.6)
[2017-05-02 21:51] LABS: ANION GAP 15 MEQ/L (5-15); BICARBONATE 14.5 MEQ/L (21.0-32.0); BLOOD UREA NITROGEN 21 MG/DL (7-18); CHLORIDE 113 MEQ/L (98-107); GLOMERULAR FILTRATION RATE 73 ML/MIN (>89); MAGNESIUM 1.5 MG/DL (1.5-2.5); POTASSIUM 4.4 MEQ/L (3.5-5.1); SODIUM (NA) 142 MEQ/L (136-145)
[2017-05-02 21:52] LABS: ALT (GPT) 58 U/L (12-78); AST (GOT) 55 U/L (15-37)
[2017-05-02 21:56] LABS: ALKALINE PHOSPHATASE 65 U/L (45-117); CREATINE KINASE 148 U/L (39-308); TOTAL BILIRUBIN ADULT 2.6 MG/DL (0.2-1.0)
[2017-05-02] MEDS ORDERED: ACETAMINOPHEN/HYDROcodone 325 MG/5 MG TAB PO PRN (22:30)
[2017-05-02] MEDS ORDERED: ONDANSETRON HCL 4 MG/2 ML VIAL IVP PRN (22:30)
[2017-05-02] MEDS ORDERED: SENNOSIDES 8.6 MG TAB PO PRN (22:30)
[2017-05-02] MEDS ORDERED: ACETAMINOPHEN 325 MG TAB PO PRN (22:30)
[2017-05-02] MEDS ORDERED: BISACODYL 10 MG SUPP RECTAL PRN (22:30)
[2017-05-02] MEDS ORDERED: LACTULOSE SYRUP 20 GM/30 ML CUP PO PRN (22:30)
[2017-05-02] MEDS ORDERED: MORPHINE SULFATE 4 MG/ML INJ IV PRN (22:30)
[2017-05-02] MEDS ORDERED: MAGNESIUM HYDROXIDE SUSP 30 ML CUP PO PRN (22:30)
--- NOTE | 2017-05-02 22:33 | HHI.HP ---
HPI Service [facility] Primary [facility] Physician Dean Santillan DO Admission Diagnosis Intractable Vomitting and Abdominal Pain. Diagnoses: (1) Intractable nausea and vomiting Diagnosis: Principal (2) Lactic acidosis Diagnosis: Principal (3) Elevated troponin Diagnosis: Principal (4) Alcohol abuse Diagnosis: Principal (5) Tobacco abuse Diagnosis: Principal Travel History International Travel<30 Days: No Contact w/Intl Traveler <30 Da: No Traveled to Known Affected Are: No History of Present Illness This is a 41-year-old male with PMH of Anxiety, Depression, Nonischemic Cardiomyopathy (Echo 12/16/16 w/ EF 20-25%), HTN, Alcohol Abuse, Tobacco Abuse and h/o Cocaine Abuse who presented to the ER w/ complaints of severe abdominal pain, nausea and vomiting x2 days. Tonight had a few beers and 2 shots of liquor after dinner followed by nausea/vomiting. Pt very poor historian, unable to provide accurate information. States he's been unable to eat or drink very much due to ongoing symptoms. Denies fever, chills, cough, chest pain or sick contacts. Previous admit 03/11/17 for similar complaints, s/p eval by GI w/ plans for EGD however pt refused and ultimately LEFT AMA. Also w/ previous admit for c/o chest pain, found to have chronically elevated Trop likely secondary to CHF w/ recommendation for medical management by Cardiology. Currently no c/o chest pain. On arrival, BP 115/94, HR 95, O2 sat 99% on RA, Afebrile. CBC unremarkable except for platelets 148, previously 163 on . Creatinine 1.31, previously 1.25 on 04/26/17. Lactic Acid 2.9. Lipase 90. Troponin 0.11. EKG with no acute ischemia. INR 1.1. CT Abd/Pelvis w/ small bilateral pleural effusions with ground glass opacity at both lung bases, edematous or inflammatory. Review of Systems Except as stated in HPI: all other systems reviewed are Neg ROS: 14 point review of systems otherwise negative. Past Family Social History Past Medical History PMH: Anxiety, Depression, Nonischemic Cardiomyopathy (Echo 12/16/16 w/ EF 20-25% ), HTN, Alcohol Abuse, Tobacco Abuse and h/o Cocaine Abuse Past Surgical History PAST SURGICAL HISTORY: Exploratory Laparotomy at dental Extraction Allergies: Coded Allergies: Iodine (Verified Allergy, Severe, itching, 04/18/17) Seafood (Verified Allergy, Severe, itching, 04/18/17) Family History PAST FAMILY HISTORY: Reviewed. No h/o DM or CAD Social History PAST SOCIAL HISTORY: Drinks beer/liquor daily. Smokes 3-5 cigarettes per day. H/o Cocaine, denies recent use. Physical Exam Vital Signs Vital Signs Date Time Temp Pulse Resp B/P Pulse Ox O2 Delivery O2 Flow Rate FiO2 05/02/17 20:22 99 Room Air 05/02/17 20:13 98.7 95 20 115/94 99 Physical Exam PE: GENERAL: Middle-aged black male in no acute distress. HEENT: PERRLA, EOMI. + scleral icterus, no conjunctival pallor. No lid lag or facial droop. CARDIOVASCULAR: Regular rate and rhythm. No obvious murmurs to auscultation. No chest tenderness to palpation. RESPIRATORY: No obvious rhonchi or wheezing. Clear to auscultation. Breath sounds equal bilaterally. GASTROINTESTINAL: Abdomen soft, mild generalized tenderness to palpation, nondistended. BS normal. MUSCULOSKELETAL: Extremities without clubbing, cyanosis, or edema. No obvious deformities. NEUROLOGICAL: Awake, alert and oriented x4. No focal neurologic deficits. Moving both upper and lower extremities spontaneously. Laboratory Laboratory Tests Test 05/02/17 20:54 White Blood Count 6.3 Red Blood Count 4.75 Hemoglobin 14.0 Hematocrit 42.4 Mean Corpuscular Volume 89.3 Mean Corpuscular Hemoglobin 29.4 Mean Corpuscular Hemoglobin 33.0 Concent Red Cell Distribution Width 13.2 Platelet Count 148 Mean Platelet Volume 10.3 Neutrophils (%) (Auto) 55.4 Lymphocytes (%) (Auto) 30.0 Monocytes (%) (Auto) 11.2 Eosinophils (%) (Auto) 2.1 Basophils (%) (Auto) 1.3 Neutrophils # (Auto) 3.5 Lymphocytes # (Auto) 1.9 Monocytes # (Auto) 0.7 Eosinophils # (Auto) 0.1 Basophils # (Auto) 0.1 CBC Comment DIFF FINAL Differential Comment Prothrombin Time 12.6 Prothromb Time International 1.1 Ratio Activated Partial 22.8 Thromboplast Time Sodium Level 142 Potassium Level 4.4 Chloride Level 113 Carbon Dioxide Level 14.5 Anion Gap 15 Blood Urea Nitrogen 21 Creatinine 1.31 Estimat Glomerular Filtration 73 Rate Random Glucose 87 Lactic Acid Level 2.9 Calcium Level 8.7 Magnesium Level 1.5 Total Bilirubin 2.6 Aspartate Amino Transf 55 (AST/SGOT) Alanine Aminotransferase 58 (ALT/SGPT) Alkaline Phosphatase 65 Total Creatine Kinase 148 Creatine Kinase MB 5.0 Troponin I 0.11 Total Protein 5.7 Albumin 2.9 Lipase 90 Result Diagram: 05/02/17205305/02/172053 Assessment and Plan Problem List: (1) Intractable nausea and vomiting ICD Code: R11.2 Status: Acute (2) Lactic acidosis ICD Code: E87.2 Status: Acute (3) Elevated troponin ICD Code: R74.8 Status: Chronic (4) Alcohol abuse ICD Code: F10.10 Status: Acute (5) Tobacco abuse ICD Code: Z72.0 Status: Acute Assessment and Plan A/P: 1. Intractable Nausea/Vomiting: c/o ongoing nausea/vomiting x2 days w/ decreased PO intake, s/p antiemetics in ER w/ minimal improvement. CT Abd/ Pelvis w/ no acute intra-abdominal pathology, images reviewed by me. Continue w / analgesics/antiemetics as needed. Protonix IV. Lipase normal. Previous eval by GI w/ plan for EGD however pt refused, ultimately LEFT AMA. 2. Lactic Acidosis: Lactate 2.9, likely secondary to dehydration, no signs of sepsis. Repeat Lactate 2.2. IVF for hydration, caution w/ CHF, Echo 12/16/16 w / EF 20-25%, monitor I/O. 3. Elevated Trop: Chronic. Trop 0.11, previously 0.09 on 04/26/17, 0.15 on 03/11. Multiple evaluations by Cardiology w/ recommendation for medical management. Pt poor candidate for further intervention secondary to non- compliance and previous h/o Cocaine Abuse. No c/o chest pain at this time. 4. Alcohol Abuse: Drinks daily. CIWA, MVT/Thiamine/Folate replacement, Seizure Precautions. 5. Tobacco Abuse: Pt counselled. NicoDerm prn if needed. 6. DVT Prophylaxis: On Xarelto for h/o DVT, will resume. 7. Social work for d/c planning as needed. 8. Case discussed w/ ER physician at length. Stephania Rich MD May 02, 2017 22:33
[2017-05-02] MEDS: PANTOPRAZOLE SODIUM 40 MG VIAL IV PUSH SCH (23:23)
[2017-05-03] MEDS ORDERED: LORazepam 1 MG TAB PO PRN (00:45)
[2017-05-03] MEDS ORDERED: LORazepam 2 MG/ML VIAL IV PUSH PRN ×4 (00:45)
[2017-05-03] MEDS ORDERED: FLUMAZENIL 0.5 MG/5 ML VIAL IV PUSH PRN (00:45)
[2017-05-03] MEDS ORDERED: HALOPERIDOL LACTATE 5 MG/ML AMP IM PRN (00:45)
[2017-05-03] MEDS ORDERED: LORazepam 2 MG TAB PO PRN (00:45)
[2017-05-03 03:25] VITALS: BP 110/85; PULSE 86; RESP 18; TEMP 97.4; O2SAT 94
[2017-05-03 06:07] LABS: AUTOMATED NEUTROPHIL # 2.8 TH/MM3 (1.8-7.7); BASOPHIL % 0.7 % (0.0-2.0); EOSINOPHIL # 0.1 TH/MM3 (0-0.4); EOSINOPHIL % 1.6 % (0.0-4.0); HEMATOCRIT 43.2 % (39.0-51.0); HEMO FLAGS DIFF FINAL; MEAN CELL VOLUME 90.1 FL (80.0-100.0); MEAN CORPUSCULAR HEMOGLOBIN 29.6 PG (27.0-34.0); MEAN CORPUSCULAR HGB CONC 32.9 % (32.0-36.0); NEUT % 47.7 % (16.0-70.0); PLATELET COUNT 152 TH/MM3 (150-450); RED CELL DISTRIBUTION WIDTH 13.3 % (11.6-17.2); WHITE BLOOD COUNT 5.8 TH/MM3 (4.0-11.0)
[2017-05-03 06:21] LABS: ALT (GPT) 58 U/L (12-78); ANION GAP 12 MEQ/L (5-15); AST (GOT) 56 U/L (15-37); BICARBONATE 16.4 MEQ/L (21.0-32.0); BLOOD UREA NITROGEN 22 MG/DL (7-18); CHLORIDE 115 MEQ/L (98-107); GLOMERULAR FILTRATION RATE 75 ML/MIN (>89); POTASSIUM 4.6 MEQ/L (3.5-5.1); SODIUM (NA) 143 MEQ/L (136-145)
[2017-05-03 06:24] LABS: ALKALINE PHOSPHATASE 66 U/L (45-117); TOTAL BILIRUBIN ADULT 2.1 MG/DL (0.2-1.0)
[2017-05-03 08:03] VITALS: BP 98/68; PULSE 80; RESP 18; TEMP 97.7; O2SAT 96
[2017-05-03] MEDS ORDERED: MULTIVITAMINS/MINERALS THERAPEUTIC TAB PO SCH (09:00)
[2017-05-03] MEDS ORDERED: DOCUSATE SODIUM 50 MG/SENNA 8.6 MG TAB PO SCH (09:00)
[2017-05-03] MEDS ORDERED: FUROSEMIDE 40 MG TAB PO SCH (09:00)
[2017-05-03] MEDS ORDERED: ISOSORBIDE MONONITRATE 30 MG TAB PO SCH (09:00)
[2017-05-03] MEDS ORDERED: SODIUM CHLORIDE 0.9% FLUSH 10 ML FLUSH IV FLUSH SCH (09:00)
[2017-05-03] MEDS ORDERED: DIGOXIN 0.25 MG TAB PO SCH (09:00)
[2017-05-03] MEDS ORDERED: CARVEDILOL 12.5 MG TAB PO SCH (09:00)
[2017-05-03] MEDS ORDERED: FOLIC ACID 1 MG TAB PO SCH (09:00)
[2017-05-03] MEDS ORDERED: THIAMINE HCL 100 MG TAB PO SCH (09:00)
[2017-05-03] MEDS ORDERED: RAMIPRIL 5 MG CAP PO SCH (09:00)
--- NOTE | 2017-05-03 10:17 | HHI.PR ---
Subjective Remarks Follow-up for gastroenteritis. The patient states that starting he was having nausea, vomiting, diarrhea, and abdominal discomfort. States that his symptoms have improved. He states that the nausea resolved with Zofran. He 's been able to tolerate diet. No vomiting. He had one episode of loose stool last night, no diarrhea today. Abdominal pain has resolved. He feels well and is asking to go home. Objective Vitals Vital Signs Date Time Temp Pulse Resp B/P Pulse Ox O2 Delivery O2 Flow Rate FiO2 05/03/17 08:03 97.7 80 18 98/68 96 05/03/17 03:25 97.4 86 18 110/85 94 05/02/17 20:22 99 Room Air 05/02/17 20:13 98.7 95 20 115/94 99 I/O 05/02/17 05/02/17 05/02/17 05/03/17 05/03/17 05/03/17 07:00 15:00 23:00 07:00 15:00 23:00 Intake Total 1040 ml Balance 1040 ml Intake Oral 240 ml IV Total 800 ml # Voids 1 Result Diagram: 05/03/17 0502 05/03/17 0502 Imaging Last Impressions Abdomen/Pelvis CT 05/02/172023 Signed Impressions: Service Date/Time: Tuesday, May 02, 2017 20:38 - CONCLUSION: 1. Small bilateral pleural effusions with groundglass opacity at both lung bases which could be an edematous or inflammatory in nature. 2. Small amount free fluid in the pelvis. No free air. No bowel obstruction. Yinka Chan MD Objective Remarks GENERAL: Well-developed well-nourished thin patient. In no acute distress. SKIN: Warm and dry. No lesions noted. HEENT: Normocephalic. Pupils equal and round. Mucous membranes pink and moist. CARDIOVASCULAR: Regular rate and rhythm. No murmur appreciated. RESPIRATORY: No accessory muscle use. Clear to auscultation. Breath sounds equal bilaterally. GASTROINTESTINAL: Abdomen soft, non-tender, nondistended. Bowel sounds x4. MUSCULOSKELETAL: No obvious deformities. No clubbing or cyanosis. No edema. NEUROLOGICAL: Awake and alert. No focal neurological deficits. Moves upper and lower extremities spontaneously. Normal speech. PSYCHIATRIC: Appropriate mood and affect; insight and judgment normal. A/P Problem List: (1) Intractable nausea and vomiting ICD Code: R11.2 Status: Resolved (2) Lactic acidosis ICD Code: E87.2 Status: Acute (3) Elevated troponin ICD Code: R74.8 Status: Chronic (4) Alcohol abuse ICD Code: F10.10 Status: Chronic (5) Tobacco abuse ICD Code: Z72.0 Status: Chronic Assessment and Plan 41-year-old male with PMH of Anxiety, Depression, Nonischemic Cardiomyopathy ( Echo 12/16/16 w/ EF 20-25%), HTN, Alcohol Abuse, Tobacco Abuse and h/o Cocaine Abuse who presented w/ complaints of abdominal pain, nausea and vomiting x2 days Gastroenteritis: Presented with nausea, vomiting, diarrhea, abdominal discomfort. Symptoms persisted for 48 hours and spontaneously resolved. CT Abd /Pelvis w/ no acute intra-abdominal pathology. Lipase within normal limits per Continue supportive care with PPI and antiemetics as needed. LFTs stable from previous. Previous eval by GI w/ plan for EGD however pt refused, ultimately LEFT AMA, encouraged outpatient GI follow-up. Lactic Acidosis: Lactate 2.9, likely secondary to dehydration, no signs of sepsis. Repeat Lactate improved 2.2. Anion gap closed. IVF for hydration, caution w/ CHF, Echo 12/16/16 w/ EF 20-25%, monitor I/O. Hold diuretics for now with dehydration. Elevated Trop: Chronic. Trop 0.11, previously 0.09 on 04/26/17, 0.15 on . Multiple evaluations by Cardiology w/ recommendation for medical management. Pt poor candidate for further intervention secondary to non- compliance and previous h/o Cocaine Abuse. No c/o chest pain at this time. Hypertension: BP is soft at this time, suspected due to poor compliance with BP meds. Decrease home BP medication. Alcohol Abuse: Drinks daily. CIWA, MVT/Thiamine/Folate replacement, Seizure Precautions. Tobacco Abuse: Pt counselled. DVT Prophylaxis: On Xarelto for h/o DVT, continued. Discharge Planning Discharge patient to home Condition on discharge: Improved Regular Diet as tolerated Ad Pearl activity Rx written: Zofran, Protonix, carvedilol, Lasix Follow-up with primary care physician Jv Ruvalcaba May 03, 2017 10:17
[2017-05-03] MEDS ORDERED: FURO40TA PO (10:20)
[2017-05-03] MEDS ORDERED: ZOFR4TAB PO (10:20)
[2017-05-03] MEDS ORDERED: PROT40TA PO (10:20)
[2017-05-03] MEDS ORDERED: CARV3.125 PO (10:20)
[2017-05-03] MEDS: PANTOPRAZOLE SODIUM 40 MG VIAL IV PUSH SCH (10:56)
[2017-05-03 12:29] VITALS: BP 100/62; PULSE 80; RESP 18; TEMP 96.8; O2SAT 96
--- NOTE | 2017-05-03 15:58 | EKG ---
Date Performed: 05/02/2017 Time Performed: 20:35:37 PTAGE: 41 years EKG: Left axis deviation Poor initial anterior forces, which may be related to the left axis dev iation, cannot exclude anteroseptal myocardial infarction of undetermined age Probable left ventricul ar hypertrophy Atrial abnormality Nonspecific ST-T changes, which may be due to LVH Since PREVIOUS TRACING , no significant change. PREVIOUS TRACIN04/26/2017 16.16 DOCTOR: Luis Salinas Interpretating Date/Time 05/03/2017 15:57:02
[2017-05-03] MEDS ORDERED: RIVAROXABAN 20 MG TAB PO SCH (17:00)
[2017-05-03] MEDS ORDERED: QUEtiapine FUMARATE 25 MG TAB PO SCH (21:00)
[2017-05-03] MEDS ORDERED: MIRTAZAPINE ODT 30 MG TAB PO SCH (21:00)
[2017-05-03] MEDS ORDERED: CARVEDILOL 3.125 MG TAB PO SCH (21:00)
[2017-05-03] MEDS ORDERED: SODIUM CHLOR 0.9% 1000 ML INJ 1,000 ML IV ONE (22:28)
== END 2017-05-03 12:24 | disposition home or self-care (01) ==
LOC: NEPE 20:06 → NEDA 22:26 → NEPFCDU 05-03 01:41
PROVIDERS: ADMIT Hospitalist; ATTEND Hospitalist
DX: K52.9 Noninfective gastroenteritis and colitis, unspecified (principal); E78.2 Mixed hyperlipidemia; E86.0 Dehydration; E87.2 Acidosis; R74.8 Abnormal levels of other serum enzymes; F10.10 Alcohol abuse, uncomplicated; F41.9 Anxiety disorder, unspecified; F32.9 Major depressive disorder, single episode, unspecified; I42.9 Cardiomyopathy, unspecified; I50.9 Heart failure, unspecified; I11.0 Hypertensive heart disease with heart failure; K74.60 Unspecified cirrhosis of liver; K21.9 Gastro-esophageal reflux disease without esophagitis; I25.2 Old myocardial infarction; F17.200 Nicotine dependence, unspecified, uncomplicated; F14.21 Cocaine dependence, in remission; Z86.718 Personal history of other venous thrombosis and embolism; Z79.01 Long term (current) use of anticoagulants; Z79.899 Other long term (current) drug therapy; Z91.14 Patient's other noncompliance with medication regimen; Z53.21 Procedure and treatment not carried out due to patient leaving prior to being seen by health care provider; Z71.6 Tobacco abuse counseling
CPT/HCPCS: 74176; 80053; 82550; 82552; 82948; 83605; 83690; 83735; 84484; 85025; 85610; 85730; 93005; 96361; 96374; 99285; C9113; G0378; J2405; J7030

== ENCOUNTER 2017-05-09 02:48 | Emergency (ER) | payer OTHER ==
[~2017-05-09] VITALS: Ht 182.9 cm; Wt 61.0 kg
[2017-05-09] VITALS (9 sets, daily range): BP systolic 115–125; BP diastolic 76–98; PULSE 68–88; RESP 16–28; TEMP 97.6; O2SAT 97–100
[~2017-05-09 02:48] MED LIST changes: -CARV12.5 PO; +CARV3.125 PO; +OMEP20TA PO; +PROT40TA PO; -RAMI5CAP PO; +ZOFR4TAB PO
[2017-05-09 03:29] LABS: BASOPHIL # 0.1 TH/MM3 (0-0.2); BASOPHIL % 1.3 % (0.0-2.0); EOSINOPHIL # 0.4 TH/MM3 (0-0.4); HEMATOCRIT 45.5 % (39.0-51.0); HEMO FLAGS DIFF FINAL; LYMPH % 50.8 % (9.0-44.0); LYMPHOCYTE # 4.5 TH/MM3 (1.0-4.8); MEAN CELL VOLUME 89.1 FL (80.0-100.0); MEAN CORPUSCULAR HGB CONC 32.5 % (32.0-36.0); MONO % 8.6 % (0.0-8.0); NEUT % 34.3 % (16.0-70.0); PLATELET COUNT 207 TH/MM3 (150-450); RED CELL DISTRIBUTION WIDTH 13.2 % (11.6-17.2); WHITE BLOOD COUNT 8.8 TH/MM3 (4.0-11.0)
[2017-05-09 03:55] LABS: ALKALINE PHOSPHATASE 65 U/L (45-117); TOTAL BILIRUBIN ADULT 1.6 MG/DL (0.2-1.0)
--- NOTE | 2017-05-09 03:55 | RADRPT ---
EXAM DATE/TIME: 05/09/2017 03:24 [facility] COMPARISON: CHEST PA & LAT, November 07, 2014, 3:04. INDICATIONS : Chest pain, shortness of breath, and cough. MEDICAL HISTORY : Myocardial infarction. Congestive heart failure. Cirrhosis. SURGICAL HISTORY : Exploratory laproscopy. Oral surgery, teeth extraction. Cardiac cath. ENCOUNTER: Initial ACUITY: 3 days PAIN SCORE: 5/10 LOCATION: abdomen FINDINGS: The cardiac silhouette is enlarged in transverse diameter. There are chronic fibrotic changes bilater ally. The lungs are free of acute parenchymal opacity. No effusions are identified. CONCLUSION: 1. Chronic fibrotic changes bilaterally unchanged from the prior study. No acute pulmonary disease. Jame Anderson MD on May 09, 2017 at 3:52 Board Certified Radiologist. This report was verified electronically.
[2017-05-09 03:57] LABS: ALT (GPT) 66 U/L (12-78); ANION GAP 12 MEQ/L (5-15); AST (GOT) 71 U/L (15-37); BICARBONATE 21.2 MEQ/L (21.0-32.0); BLOOD UREA NITROGEN 12 MG/DL (7-18); CHLORIDE 108 MEQ/L (98-107); GLOMERULAR FILTRATION RATE 98 ML/MIN (>89); POTASSIUM 4.7 MEQ/L (3.5-5.1); SODIUM (NA) 141 MEQ/L (136-145)
--- NOTE | 2017-05-09 04:25 | PD ---
HPI Chief Complaint: Cold / Flu Symptoms Time Seen by Provider: 04:16 Travel History International Travel<30 days: No Contact w/Intl Traveler<30days: No Traveled to known affect area: No History of Present Illness HPI 41-year-old black male presents to emergency department complaints of cough, congestion, shortness of breath, upset stomach with some mild abdominal pain over the past day or 2. The patient states that he was seen earlier today by his psychiatrist. He also states that he was seen earlier in the week by his label pinker who had changes medications. He is unsure whether the change in medicine have brought this on or some other process. He denies any fever or chills. He denies any calf pain or swelling. The patient was just recently admitted to the hospital this past week for intractable nausea, vomiting or abdominal pain. He also was seen prior to that for a moderate probability VQ scan for pulmonary embolus. He is currently taken Xarelto. Patient claims that he is compliant with his medications. PFSH Past Medical History Narrative Medical Anxiety, depression, cardiomyopathy, hypertension, coronary artery disease, cirrhosis, chronic alcohol abuse, COPD, pulmonary embolus Hx Anticoagulant Therapy: Yes (XARELTO ) Autoimmune Disease: No Blood Disorders: No Anxiety: Yes Depression: Yes Heart Rhythm Problems: Yes Cancer: No Cardiac Catheterization: Yes (Heart md-Charlie Damico DO) Cardiomyopathy: Yes Cardiovascular Problems: Yes High Cholesterol: No Chemotherapy: No Chest Pain: Yes Congestive Heart Failure: No Cirrhosis: Yes Cerebrovascular Accident: No Diabetes: No Diminished Hearing: Yes (BILATERAL - [place]) Deep Vein Thrombosis: Yes (roberto le leg/xarelto) Endocrine: No Gastrointestinal Disorders: Yes (Reflux, Ulcers) GERD: Yes (protonix po) Glaucoma: No Genitourinary: No Hepatitis: No Hiatal Hernia: No Heparin Induced Thrombocytopen: No Hypertension: Yes Immune Disorder: No Implanted Vascular Access Dvce: No Musculoskeletal: Yes Neurologic: No Psychiatric: Yes Reproductive: No Respiratory: No Immunizations Current: No Myocardial Infarction: Yes Pneumonia: Yes Radiation Therapy: No Sickle Cell Disease: No Thyroid Disease: No Ulcer: Yes Past Surgical History Narrative Surgical Exploratory laparotomy, Abdominal Surgery: Yes (EXPLORATORY LAP) AICD: No Appendectomy: No Arteriovenous Shunt: No Body Medical Devices: pacemaker Cholecystectomy: No Coronary Artery Bypass Graft: No Ear Surgery: No Endocrine Surgery: No Eye Surgery: No Gynecologic Surgery: No Hysterectomy: No Insulin Pump: No Joint Replacement: No Neurologic Surgery: No Oral Surgery: Yes (TEETH EXTRACTIONS) Pacemaker: No Other Surgery: No Family History Family Myocardial Infarction: Yes (MOTHER/GRANDMOTHER) Social History Alcohol Use: Yes (beer / liquor last drink b4 all started) Tobacco Use: Yes (QUIT 04-08-17) Substance Use: No Allergies-Medications (Allergen,Severity, Reaction): Coded Allergies: Iodine (Verified Allergy, Severe, itching, 04/18/17) Seafood (Verified Allergy, Severe, itching, 04/18/17) Reported Meds & Prescriptions Reported Meds & Active Scripts Active Zofran (Ondansetron HCl) 4 Mg Tab 4 Mg PO Q6HR PRN Protonix (Pantoprazole Sodium) 40 Mg Tab 40 Mg PO DAILY Coreg (Carvedilol) 3.125 Mg Tab 3.125 Mg PO BID Furosemide 40 Mg Tab 40 Mg PO BID Hold Lasix for 3 days with recent dehydration, can resume on May 06. Reported Omeprazole 20 Mg Tab 20 Mg PO DAILY Klor-Con M20 (Potassium Chloride Microencaps) 20 Meq Tab 20 Meq PO DAILY Xarelto (Rivaroxaban) 20 Mg Tab 20 Mg PO DAILY Isosorbide Mononitrate ER (Isosorbide Mononitrate) 30 Mg Tahir 30 Mg PO DAILY Digoxin 0.25 Mg Tab 0.25 Mg PO DAILY Mirtazapine ODT (Mirtazapine) 30 Mg Tab 30 Mg PO HS Quetiapine (Quetiapine Fumarate) 25 Mg Tab 25 Mg PO HS Review of Systems Except as stated in HPI: all other systems reviewed are Neg Physical Exam Narrative GENERAL: Well-developed, well-nourished in no acute distress. Nontoxic appearing. Patient is resting comfortable. His vital signs are stable. He does have an occasional cough during exam. HEAD: Normocephalic, atraumatic. EYES: Pupils equal round and reactive. Extraocular motions intact. No scleral icterus. No injection or drainage. ENT: TMs clear without erythema. The external auditory canals clear. Nose: clear . Posterior pharynx is pink and moist. No tonsillar edema or exudate. Uvula midline. Airway patent. NECK: Trachea midline.Supple, nontender, moves head freely. No central bony tenderness or spasm. CARDIOVASCULAR: Regular rate and rhythm without murmurs, gallops, or rubs. RESPIRATORY: Clear to auscultation. Breath sounds equal bilaterally. No wheezes , rales, or rhonchi. GASTROINTESTINAL: Abdomen soft, non-tender, nondistended. No hepato-splenomegaly , or palpable masses. No guarding. EXTREMITIES: No clubbing, cyanosis, or edema. No joint tenderness, effusion, or edema noted. No calf tenderness. No Homans sign. BACK: Nontender without deformity or crepitance. No flank tenderness. Data Data Last Documented VS Vital Signs Date Time Temp Pulse Resp B/P Pulse Ox O2 Delivery O2 Flow Rate FiO2 05/09/17 06:25 88 24 124/76 100 Room Air 05/09/17 02:52 97.6 Orders Electrocardiogram (05/09/17 03:07) Complete Blood Count With Diff (05/09/17 03:07) Comprehensive Metabolic Panel (05/09/17 03:07) B-Type Natriuretic Peptide (05/09/17 03:07) Lipase (05/09/17 03:07) Chest, Pa & Lat (05/09/17 03:07) Iv Access Insert/Monitor (05/09/17 03:07) Alcohol (Ethanol) (05/09/17 03:07) Labs Laboratory Tests Test 05/09/17 03:15 White Blood Count 8.8 TH/MM3 Red Blood Count 5.10 MIL/MM3 Hemoglobin 14.8 GM/DL Hematocrit 45.5 % Mean Corpuscular Volume 89.1 FL Mean Corpuscular Hemoglobin 29.0 PG Mean Corpuscular Hemoglobin 32.5 % Concent Red Cell Distribution Width 13.2 % Platelet Count 207 TH/MM3 Mean Platelet Volume 9.7 FL Neutrophils (%) (Auto) 34.3 % Lymphocytes (%) (Auto) 50.8 % Monocytes (%) (Auto) 8.6 % Eosinophils (%) (Auto) 5.0 % Basophils (%) (Auto) 1.3 % Neutrophils # (Auto) 3.0 TH/MM3 Lymphocytes # (Auto) 4.5 TH/MM3 Monocytes # (Auto) 0.8 TH/MM3 Eosinophils # (Auto) 0.4 TH/MM3 Basophils # (Auto) 0.1 TH/MM3 CBC Comment DIFF FINAL Differential Comment Sodium Level 141 MEQ/L Potassium Level 4.7 MEQ/L Chloride Level 108 MEQ/L Carbon Dioxide Level 21.2 MEQ/L Anion Gap 12 MEQ/L Blood Urea Nitrogen 12 MG/DL Creatinine 1.02 MG/DL Estimat Glomerular Filtration 98 ML/MIN Rate Random Glucose 81 MG/DL Calcium Level 8.2 MG/DL Total Bilirubin 1.6 MG/DL Aspartate Amino Transf 71 U/L (AST/SGOT) Alanine Aminotransferase 66 U/L (ALT/SGPT) Alkaline Phosphatase 65 U/L B-Type Natriuretic Peptide 2316 PG/ML Total Protein 5.6 GM/DL Albumin 2.6 GM/DL Lipase 96 U/L Ethyl Alcohol Level LESS THAN 3 MG/DL MDM Medical Decision Making Medical Screen Exam Complete: Yes Emergency Medical Condition: Yes Medical Record Reviewed: Yes Interpretation(s) EKG: Sinus rhythm with a ventricular rate of 79. Patient has LVH with strain, left atrial enlargement, anteroseptal infarct-old this is compared to prior EKG which is unchanged. Laboratory Tests Test 05/09/17 03:15 White Blood Count 8.8 TH/MM3 Red Blood Count 5.10 MIL/MM3 Hemoglobin 14.8 GM/DL Hematocrit 45.5 % Mean Corpuscular Volume 89.1 FL Mean Corpuscular Hemoglobin 29.0 PG Mean Corpuscular Hemoglobin 32.5 % Concent Red Cell Distribution Width 13.2 % Platelet Count 207 TH/MM3 Mean Platelet Volume 9.7 FL Neutrophils (%) (Auto) 34.3 % Lymphocytes (%) (Auto) 50.8 % Monocytes (%) (Auto) 8.6 % Eosinophils (%) (Auto) 5.0 % Basophils (%) (Auto) 1.3 % Neutrophils # (Auto) 3.0 TH/MM3 Lymphocytes # (Auto) 4.5 TH/MM3 Monocytes # (Auto) 0.8 TH/MM3 Eosinophils # (Auto) 0.4 TH/MM3 Basophils # (Auto) 0.1 TH/MM3 CBC Comment DIFF FINAL Differential Comment Sodium Level 141 MEQ/L Potassium Level 4.7 MEQ/L Chloride Level 108 MEQ/L Carbon Dioxide Level 21.2 MEQ/L Anion Gap 12 MEQ/L Blood Urea Nitrogen 12 MG/DL Creatinine 1.02 MG/DL Estimat Glomerular Filtration 98 ML/MIN Rate Random Glucose 81 MG/DL Calcium Level 8.2 MG/DL Total Bilirubin 1.6 MG/DL Aspartate Amino Transf 71 U/L (AST/SGOT) Alanine Aminotransferase 66 U/L (ALT/SGPT) Alkaline Phosphatase 65 U/L B-Type Natriuretic Peptide 2316 PG/ML Total Protein 5.6 GM/DL Albumin 2.6 GM/DL Lipase 96 U/L Ethyl Alcohol Level LESS THAN 3 MG/DL Last 24 hours Impressions Chest X-Ray 05/09/17 0307 Signed Impressions: Service Date/Time: Tuesday, May 09, 2017 03:24 - CONCLUSION: 1. Chronic fibrotic changes bilaterally unchanged from the prior study. No acute pulmonary disease. Jame Anderson MD Differential Diagnosis Differential diagnoses: Pneumonia, CHF, pulmonary embolus, electrolyte abnormality, hepatitis, acute abdominal pain, chronic abdominal pain, noncompliance, med reaction Narrative Course This is a 41-year-old black male with a history of recent PE and intractable vomiting. He had been seen by his primary care doctor recently as well as his label pinker and psychiatrist. The patient has had complaints of subjective dyspnea along with cough. His chest x-ray does not show any overt failure. He does have a elevated BNP. This is slightly higher than his last visit but not significantly higher. Clinical significance is not clear at this point. Patient's white count is normal at there is a predominance of lymphocytes. Patient's lungs are clear. Abdomen soft and nontender. At this point I believe the patient is stable to go home. He is advised to follow-up with his doctor and label pinker in the next 24 hours. The patient has been allowed to sleep here in the ER until 6:30 this morning. The patient was awoken. He once again states that he is having shortness of breath. I repeated his vital signs and they're normal. The patient has been up and ambulating and have not seen a desaturation or a tachycardia. I have discussed the case with Dr. Campuzano who has recommended repeat VQ scan. We will perform a VQ scan and perform coags. The patient now states that he is unsure whether he has been taking his overall toe. He states that he is not sure if these gotten it or if he is not been able to afford it. The patient's story at this point is not reliable. The patient's care will be transferred to the [facility] for final treatment and disposition Diagnosis Primary Impression: Dyspnea Qualified Code: R06.02 - Shortness of breath Additional Impressions: Cough Cardiomyopathy Qualified Code: I42.9 - Cardiomyopathy, unspecified type Pulmonary embolus Qualified Code: I26.99 - Other pulmonary embolism without acute cor pulmonale , unspecified chronicity Med/Other Pt SpecificInfo: No Change to Yinka Alvarado May 09, 2017 04:25
[2017-05-09] MEDS ORDERED: CARV12.52 PO (07:02)
[2017-05-09] MEDS ORDERED: RAMI5CAP PO (07:02)
[2017-05-09 07:27] LABS: PROTHROMBIN TIME - PATIENT 12.5 SEC (9.8-11.6)
[2017-05-09 07:30] LABS: APTT (PATIENT) 24.9 SEC (24.3-30.1); INTERNATIONAL NORMALIZED RATIO 1.1 RATIO
[2017-05-09] MEDS ORDERED: FUROSEMIDE 40 MG TAB PO ONE (08:15)
--- NOTE | 2017-05-09 10:46 | RADRPT ---
EXAM DATE/TIME: 05/09/2017 10:15 [facility] COMPARISON: LUNG VENTILATION & PERFUSION SCAN, April 26, 2017, 21:03. INDICATIONS : Short of breath for 2 days. DOSE: 8.5 mCi Tc99m MAA IV 0.79 mCi Tc99m DTPA aerosol MEDICAL HISTORY : Myocardial infarction. SURGICAL HISTORY : None. ENCOUNTER: Initial ACUITY: 2 days PAIN SCALE: 2/10 LOCATION: Bilateral chest TECHNIQUE: Following five minutes of tidal breathing of DTPA aerosol, planar images of the lungs were performed in eight projections. The patient was then injected with MAA, and eight-view perfusion scan was perf ormed. FINDINGS: There continues to be moderate territory defects the tracer trapping. The perfusion is more homogene ous than the ventilation. There has been no interval change from the comparison study. CONCLUSION: Low to intermediate probability for pulmonary embolism base on the stability of findings. Venous Dop pler of the lower extremities may help. Previous study was normal. Marcelo Aguila MD FACR on May 09, 2017 at 10:43 Board Certified Radiologist. This report was verified electronically.
--- NOTE | 2017-05-09 11:38 | PD ---
Physical Exam Date Seen by Provider: May 09, 2017 Time Seen by Provider: 07:05 Narrative I was asked to take over care of this 41-year-old Afro-Australian male with history of chronic alcoholic cardiomyopathy and ischemic heart disease with question of PE. VQ scan was ordered by All Frank PA-C prior to my arrival. The patient was given 40 mg furosemide by mouth. Data Data Last Documented VS Vital Signs Date Time Temp Pulse Resp B/P Pulse Ox O2 Delivery O2 Flow Rate FiO2 05/09/17 11:14 68 16 115/76 97 Room Air 05/09/17 02:52 97.6 Orders Electrocardiogram (05/09/17 03:07) Complete Blood Count With Diff (05/09/17 03:07) Comprehensive Metabolic Panel (05/09/17 03:07) B-Type Natriuretic Peptide (05/09/17 03:07) Lipase (05/09/17 03:07) Chest, Pa & Lat (05/09/17 03:07) Iv Access Insert/Monitor (05/09/17 03:07) Alcohol (Ethanol) (05/09/17 03:07) Ventilation & Perfusion Scan (05/09/17 06:51) Prothrombin Time / Inr (Pt) (05/09/17 06:51) Act Partial Throm Time (Ptt) (05/09/17 06:51) Furosemide (Lasix) (05/09/17 08:15) Labs Laboratory Tests Test 05/09/17 05/09/17 03:15 06:15 White Blood Count 8.8 TH/MM3 Red Blood Count 5.10 MIL/MM3 Hemoglobin 14.8 GM/DL Hematocrit 45.5 % Mean Corpuscular Volume 89.1 FL Mean Corpuscular Hemoglobin 29.0 PG Mean Corpuscular Hemoglobin 32.5 % Concent Red Cell Distribution Width 13.2 % Platelet Count 207 TH/MM3 Mean Platelet Volume 9.7 FL Neutrophils (%) (Auto) 34.3 % Lymphocytes (%) (Auto) 50.8 % Monocytes (%) (Auto) 8.6 % Eosinophils (%) (Auto) 5.0 % Basophils (%) (Auto) 1.3 % Neutrophils # (Auto) 3.0 TH/MM3 Lymphocytes # (Auto) 4.5 TH/MM3 Monocytes # (Auto) 0.8 TH/MM3 Eosinophils # (Auto) 0.4 TH/MM3 Basophils # (Auto) 0.1 TH/MM3 CBC Comment DIFF FINAL Differential Comment Sodium Level 141 MEQ/L Potassium Level 4.7 MEQ/L Chloride Level 108 MEQ/L Carbon Dioxide Level 21.2 MEQ/L Anion Gap 12 MEQ/L Blood Urea Nitrogen 12 MG/DL Creatinine 1.02 MG/DL Estimat Glomerular Filtration 98 ML/MIN Rate Random Glucose 81 MG/DL Calcium Level 8.2 MG/DL Total Bilirubin 1.6 MG/DL Aspartate Amino Transf 71 U/L (AST/SGOT) Alanine Aminotransferase 66 U/L (ALT/SGPT) Alkaline Phosphatase 65 U/L B-Type Natriuretic Peptide 2316 PG/ML Total Protein 5.6 GM/DL Albumin 2.6 GM/DL Lipase 96 U/L Ethyl Alcohol Level LESS THAN 3 MG/DL Prothrombin Time 12.5 SEC Prothromb Time International 1.1 RATIO Ratio Activated Partial 24.9 SEC Thromboplast Time MDM Medical Record Reviewed: Yes Supervised Visit with GAURANG: Yes Differential Diagnosis Chronic cardiomyopathy. CHF. PE. Exertional dyspnea. Narrative Course CT scan comes back with low probability for PE. Patient is asymptomatic and does not desaturate with exertion here in the department. He is not tachycardic or hypoxic during his time here in the department. Patient seemed to improve after his Lasix 40 mg by mouth. Patient is discussed with Dr. Ramires who feels the patient is stable for discharge with close follow-up with his edi manager. Patient is given a prescription for his furosemide 40 mg twice a day #30. Patient should follow with his edi manager in the next week. Patient can return to emergency Department with worsening symptoms if necessary. Diagnosis Primary Impression: Dyspnea Qualified Code: R06.02 - Shortness of breath Additional Impressions: Cough Pulmonary embolus Qualified Code: I26.99 - Other pulmonary embolism without acute cor pulmonale , unspecified chronicity Cardiomyopathy Qualified Code: I42.9 - Cardiomyopathy, unspecified type Referrals: Freight Service Inspector Patient Instructions: Dyspnea (ED), General Instructions Departure Forms: Tests/Procedures Additional Instruction: Rest. Take Lasix 40 mg twice a day. Follow-up with your primary care doctor and edi manager within the next 12-24 hours. Continue your current medications. Return to the ER if symptoms worsen. Med/Other Pt SpecificInfo: Prescription(s) given Scripts Furosemide 40 Mg Tab40 Mg PO BID #30 TAB Ref 0 Prov:Carlos Campuzano MD 05/09/17 Disposition: 01 DISCHARGE HOME Condition: Stable Roman Otto May 09, 2017 11:38
[2017-05-09] MEDS ORDERED: FURO40TA PO (11:39)
--- NOTE | 2017-05-09 12:10 | EKG ---
Date Performed: 05/09/2017 Time Performed: 03:32:27 PTAGE: 41 years EKG: Sinus rhythm LEFT ATRIAL ENLARGEMENT LEFT ANTERIOR FASCICULAR BLOCK ANTEROSEPTAL MYOCARDIAL INFARCTION PREVIOUS TRACING : 05/02/2017 20.35 Compared to prior study, no significant change. DOCTOR: Jame Nagel Interpretating Date/Time 05/09/2017 12:10:29
== END 2017-05-09 12:05 | disposition home or self-care (01) ==
LOC: NEPD 02:48
DX: I26.99 Other pulmonary embolism without acute cor pulmonale (principal); I42.9 Cardiomyopathy, unspecified; Z87.891 Personal history of nicotine dependence; I25.2 Old myocardial infarction; K21.9 Gastro-esophageal reflux disease without esophagitis; K74.60 Unspecified cirrhosis of liver; I11.0 Hypertensive heart disease with heart failure; I25.10 Atherosclerotic heart disease of native coronary artery without angina pectoris; Z79.01 Long term (current) use of anticoagulants
CPT/HCPCS: 71020; 78582; 80053; 80307; 83690; 83880; 85025; 85610; 85730; 93005; 99285; A9540; A9567

== ENCOUNTER 2017-06-10 11:17 | Emergency (ER) | payer OTHER ==
[~2017-06-10] VITALS: Ht 175.3 cm; Wt 55.0 kg
[~2017-06-10 11:17] MED LIST changes: +CARV12.52 PO; -CARV3.125 PO; -PROT40TA PO; +RAMI5CAP PO; -ZOFR4TAB PO
[2017-06-10 11:21] VITALS: BP 112/62; PULSE 112; RESP 16; TEMP 98.4; O2SAT 99
--- NOTE | 2017-06-10 11:54 | PD ---
HPI Chief Complaint: Injury Time Seen by Provider: 11:45 Travel History International Travel<30 days: No Contact w/Intl Traveler<30days: No Traveled to known affect area: No History of Present Illness HPI 41-year-old male here for evaluation of puncture wound to the plantar aspect of left foot. 2 days ago he stepped on the nail and went through his shoes. He pulled it out but he has had persistent pain to the plantar aspect left foot when walking. Aching, worse when walking. Last tetanus vaccination unknown. No other complaints. PFSH Past Medical History Hx Anticoagulant Therapy: Yes (XARELTO ) Autoimmune Disease: No Blood Disorders: No Anxiety: Yes Depression: Yes Heart Rhythm Problems: Yes Cancer: No Cardiac Catheterization: Yes (Heart md-Charlie Damico DO) Cardiomyopathy: Yes Cardiovascular Problems: Yes High Cholesterol: No Chemotherapy: No Chest Pain: Yes Congestive Heart Failure: No Cirrhosis: Yes Cerebrovascular Accident: No Diabetes: No Diminished Hearing: Yes (BILATERAL - [place]) Deep Vein Thrombosis: Yes (roberto le leg/xarelto) Endocrine: No Gastrointestinal Disorders: Yes (Reflux, Ulcers) GERD: Yes (protonix po) Glaucoma: No Genitourinary: No Hepatitis: No Hiatal Hernia: No Heparin Induced Thrombocytopen: No Hypertension: Yes Immune Disorder: No Implanted Vascular Access Dvce: No Musculoskeletal: Yes Neurologic: No Psychiatric: Yes Reproductive: No Respiratory: No Immunizations Current: No Myocardial Infarction: Yes Pneumonia: Yes Radiation Therapy: No Sickle Cell Disease: No Thyroid Disease: No Ulcer: Yes Past Surgical History Abdominal Surgery: Yes (EXPLORATORY LAP) AICD: No Appendectomy: No Arteriovenous Shunt: No Body Medical Devices: pacemaker Cholecystectomy: No Coronary Artery Bypass Graft: No Ear Surgery: No Endocrine Surgery: No Eye Surgery: No Gynecologic Surgery: No Hysterectomy: No Insulin Pump: No Joint Replacement: No Neurologic Surgery: No Oral Surgery: Yes (TEETH EXTRACTIONS) Pacemaker: No Other Surgery: No Social History Alcohol Use: Yes (beer / liquor last drink b4 all started) Tobacco Use: Yes (QUIT 04-08-17) Substance Use: No Allergies-Medications (Allergen,Severity, Reaction): Coded Allergies: Fish Containing Products (Verified Allergy, Severe, itching, 06/10/17) iodine (Verified Allergy, Severe, itching, 06/10/17) potassium iodide (Verified Allergy, Severe, itching, 06/10/17) povidone-iodine (Verified Allergy, Severe, itching, 06/10/17) sodium iodide (Verified Allergy, Severe, itching, 06/10/17) sodium iodide (Verified Allergy, Severe, itching, 06/10/17) Reported Meds & Prescriptions Reported Meds & Active Scripts Active Keflex (Cephalexin) 500 Mg Cap 500 Mg PO Q8H 3 Days Cipro (Ciprofloxacin HCl) 500 Mg Tab 500 Mg PO BID 3 Days Furosemide 40 Mg Tab 40 Mg PO BID Furosemide 40 Mg Tab 40 Mg PO BID Hold Lasix for 3 days with recent dehydration, can resume on May 06. Reported Ramipril 5 Mg Cap 5 Mg PO DAILY Carvedilol 12.5 Mg Tab 12.5 Mg PO BID Omeprazole 20 Mg Tab 20 Mg PO DAILY Klor-Con M20 (Potassium Chloride Microencaps) 20 Meq Tab 20 Meq PO DAILY Xarelto (Rivaroxaban) 20 Mg Tab 20 Mg PO DAILY Isosorbide Mononitrate ER (Isosorbide Mononitrate) 30 Mg Tahir 30 Mg PO DAILY Digoxin 0.25 Mg Tab 0.25 Mg PO DAILY Mirtazapine ODT (Mirtazapine) 30 Mg Tab 30 Mg PO HS Quetiapine (Quetiapine Fumarate) 25 Mg Tab 25 Mg PO HS Review of Systems Musculoskeletal: Positive: Pain Skin: Positive Other (puncture wound, pain) Physical Exam Narrative GENERAL: Well-developed well-nourished male in no acute distress SKIN: Warm and dry. Small circular puncture wound to the plantar aspect left foot without active bleeding or erythema or drainage. HEAD: Atraumatic. Normocephalic. EYES: Pupils equal and round. No scleral icterus. No injection or drainage. ENT: No nasal bleeding or discharge. Mucous membranes pink and moist. NECK: Trachea midline. No JVD. CARDIOVASCULAR: Regular rate and rhythm. No murmur appreciated. RESPIRATORY: No accessory muscle use. Clear to auscultation. Breath sounds equal bilaterally. MUSCULOSKELETAL: No obvious deformities. Skin as noted above with tenderness to palpation. The patient retains full range of motion of the left foot. Pulses are intact. Data Data Last Documented VS Vital Signs Date Time Temp Pulse Resp B/P (MAP) Pulse Ox O2 Delivery O2 Flow Rate FiO2 06/10/17 11:21 98.4 112 16 112/62 (79) 99 Orders Orders Tetanus/Diphtheria Tox Adult (Tetanus/Di (06/10/17 12:00) Foot, Limited (2vws) (06/10/17 ) Wound Care (06/10/17 13:29) Cephalexin (Keflex) (06/10/17 13:30) Ciprofloxacin (Cipro) (06/10/17 13:30) MDM Medical Decision Making Medical Screen Exam Complete: Yes Emergency Medical Condition: Yes Medical Record Reviewed: Yes Differential Diagnosis Puncture wound, foreign body, abscess, cellulitis, fracture Narrative Course 41-year-old male presents to days after stepping on a nail which went through his shoes and embedded in the plantar aspect of his left foot. He did pull the nail out but he has had persistent pain since then. Examination reveals no evidence of infectious process. He has a puncture wound on the foot. X-ray imaging reveals no acute abnormalities. Tetanus status was updated. The patient is being discharged with Keflex and Cipro. Discussed signs and symptoms that would warrant returning to the emergency room. He is stable for discharge. Diagnosis Primary Impression: Puncture wound of left foot Qualified Codes: S91.332A - Puncture wound without foreign body, left foot, initial encounter Additional Instructions: Wash the wound daily with soap and water and apply antibiotic cream and clean bandages. Take medication as prescribed. Return for evidence of infection such as increasing pain, increasing redness and swelling, fevers or chills. Med/Other Pt SpecificInfo: Prescription(s) given, Wound Care Scripts Cephalexin (Keflex) 500 Mg Cap 500 MG PO Q8H for Infection for 3 Days, CAP 0 Refills Prov: Edson Ash MD 06/10/17 Ciprofloxacin (Cipro) 500 Mg Tab 500 MG PO BID for Infection for 3 Days, TAB 0 Refills Prov: Edson Ash MD 06/10/17 Disposition: 01 DISCHARGE HOME Condition: Stable Ravi Cramer Jun 10, 2017 11:54
[2017-06-10] MEDS ORDERED: TETANUS/DIPHTHERIA TOXOID ADULT 0.5 ML VIAL IM ONE (12:00)
[2017-06-10] MEDS ORDERED: CIPR-9 PO (13:28)
[2017-06-10] MEDS ORDERED: CEPH-460 PO (13:28)
--- NOTE | 2017-06-10 13:28 | RADRPT ---
EXAM DATE/TIME: 06/10/2017 13:15 [facility] COMPARISON: No previous studies available for comparison. INDICATIONS : Stepped on nail two days ago. MEDICAL HISTORY : Hypertension. Cirrhosis SURGICAL HISTORY : None. ENCOUNTER: Initial ACUITY: 2 days PAIN SCORE: 6/10 LOCATION: Left Foot, bottom. FINDINGS: Two view examination of the left foot demonstrates no soft tissue swelling, dislocation, or fracture. The calcaneus is intact. Bony mineralization is normal. CONCLUSION: Unremarkable limited examination of the left foot. Satya Méndez MD on June 10, 2017 at 13:26 Board Certified Radiologist. This report was verified electronically.
[2017-06-10] MEDS ORDERED: CIPROFLOXACIN 500 MG TAB PO ONE (13:30)
[2017-06-10] MEDS ORDERED: CEPHALEXIN MONOHYDRATE 500 MG CAP PO ONE (13:30)
[2017-06-10 13:32] VITALS: BP 121/77; PULSE 62; RESP 18; TEMP 98.2; O2SAT 99
[2017-06-10 13:56] VITALS: BP 118/74
== END 2017-06-10 14:15 | disposition home or self-care (01) ==
LOC: NEPD 11:17
DX: S91.332A Puncture wound without foreign body, left foot, initial encounter (principal); I42.9 Cardiomyopathy, unspecified; K21.9 Gastro-esophageal reflux disease without esophagitis; I10 Essential (primary) hypertension; I25.2 Old myocardial infarction; F41.9 Anxiety disorder, unspecified; W22.8XXA Striking against or struck by other objects, initial encounter; Z86.718 Personal history of other venous thrombosis and embolism; Z23 Encounter for immunization
CPT/HCPCS: 73620; 90471; 90714

== ENCOUNTER 2017-08-11 18:14 | Observation (INO) | payer OTHER ==
[~2017-08-11] VITALS: Ht 175.3 cm; Wt 50.0 kg
[~2017-08-11 18:14] MED LIST changes: +CEPH-460 PO; +CIPR-9 PO; +KLOR20TA3 PO; -OMEP20TA PO; +OMEP20TA93 PO; -POTA-245 PO
[2017-08-11 18:25] VITALS: BP 113/81; PULSE 92; RESP 22; TEMP 98.4; O2SAT 99
--- NOTE | 2017-08-11 18:42 | PD ---
HPI Chief Complaint: Chest Pain Time Seen by Provider: 18:20 Travel History International Travel<30 days: No Contact w/Intl Traveler<30days: No Traveled to known affect area: No History of Present Illness HPI 42-year-old male with a history of PE as well as CHF and previous CO 2 years ago that presents to the ED for evaluation of right-sided chest pain. Per patient he started about 9:00 this morning. Denies any injury or trauma. Per patient he feels short of breath and the pain does radiate to the back. He states that he feels somewhat similar to his PE. He takes Xeralto every day. He states having some congestion but he denies any other medical issue. He denies any fevers chills or sweats. He states having some diarrhea. This diarrhea has been going for a couple days. Denies any abdominal pain however. No abdominal cramping. No head injury or trauma. Pain is mainly to the right upper quadrant of the chest. Has an allergy to iodine. Denies any nausea or vomiting. Pain. Patient is 7 out of 10. He has not taken anything for this. PFSH Past Medical History Hx Anticoagulant Therapy: Yes Autoimmune Disease: No Blood Disorders: No Anxiety: Yes Depression: Yes Heart Rhythm Problems: Yes Cancer: No Cardiac Catheterization: Yes (Heart md-Charlie Damico DO) Cardiomyopathy: Yes Cardiovascular Problems: Yes (CO 2014) High Cholesterol: No Chemotherapy: No Chest Pain: Yes Congestive Heart Failure: No Cirrhosis: Yes Cerebrovascular Accident: No Diabetes: No Diminished Hearing: Yes (BILATERAL - TA[place]CROSS) Deep Vein Thrombosis: Yes (roberto le leg/xarelto) Endocrine: No Gastrointestinal Disorders: Yes (Reflux, Ulcers) GERD: Yes Glaucoma: No Genitourinary: No Hepatitis: No Hiatal Hernia: No Heparin Induced Thrombocytopen: No Hypertension: Yes Immune Disorder: No Implanted Vascular Access Dvce: No Musculoskeletal: Yes Neurologic: No Psychiatric: Yes Reproductive: No Respiratory: No Immunizations Current: No Myocardial Infarction: Yes Pneumonia: Yes Radiation Therapy: No Sickle Cell Disease: No Thyroid Disease: No Ulcer: Yes Past Surgical History Abdominal Surgery: Yes (EXPLORATORY LAP) AICD: No Appendectomy: No Arteriovenous Shunt: No Body Medical Devices: pacemaker Cholecystectomy: No Coronary Artery Bypass Graft: No Ear Surgery: No Endocrine Surgery: No Eye Surgery: No Gynecologic Surgery: No Hysterectomy: No Insulin Pump: No Joint Replacement: No Neurologic Surgery: No Oral Surgery: Yes (TEETH EXTRACTIONS) Pacemaker: No Other Surgery: No Family History Family Myocardial Infarction: Yes (MOTHER/GRANDMOTHER) Social History Alcohol Use: Yes (couple beers per day) Tobacco Use: Yes (QUIT 04-08-17) Substance Use: No Allergies-Medications (Allergen,Severity, Reaction): Coded Allergies: Fish Containing Products (Verified Allergy, Severe, itching, 06/10/17) iodine (Verified Allergy, Severe, itching, 06/10/17) potassium iodide (Verified Allergy, Severe, itching, 06/10/17) povidone-iodine (Verified Allergy, Severe, itching, 06/10/17) sodium iodide (Verified Allergy, Severe, itching, 06/10/17) sodium iodide (Verified Allergy, Severe, itching, 06/10/17) Reported Meds & Prescriptions Reported Meds & Active Scripts Active Furosemide 40 Mg Tab 40 Mg PO BID Reported Ramipril 5 Mg Cap 5 Mg PO DAILY Carvedilol 12.5 Mg Tab 12.5 Mg PO BID Omeprazole 20 Mg Tab 20 Mg PO DAILY Klor-Con M20 (Potassium Chloride Microencaps) 20 Meq Tab 20 Meq PO DAILY Xarelto (Rivaroxaban) 20 Mg Tab 20 Mg PO DAILY Isosorbide Mononitrate ER (Isosorbide Mononitrate) 30 Mg Tahir 30 Mg PO DAILY Digoxin 0.25 Mg Tab 0.25 Mg PO DAILY Mirtazapine ODT (Mirtazapine) 30 Mg Tab 30 Mg PO HS Quetiapine (Quetiapine Fumarate) 25 Mg Tab 25 Mg PO HS Review of Systems Except as stated in HPI: all other systems reviewed are Neg Physical Exam Narrative GENERAL: SKIN: Warm and dry. HEAD: Atraumatic. Normocephalic. EYES: Pupils equal and round 4 mms reactive to light and accommodation. No scleral icterus. No injection or drainage. ENT: No nasal bleeding or discharge. Mucous membranes pink and moist. Tongue is midline. No uvula deviation. NECK: Trachea midline. No JVD. CARDIOVASCULAR: Regular rate and rhythm. No murmurs, S3, S4. RESPIRATORY: No accessory muscle use. Clear to auscultation. Breath sounds equal bilaterally. GASTROINTESTINAL: Abdomen soft, non-tender, nondistended. Hepatic and splenic margins not palpable. MUSCULOSKELETAL: Extremities without clubbing, cyanosis, or edema. No obvious deformities. Full range of motion of the upper and lower extremities bilaterally. 2+ pulses bilaterally. NEUROLOGICAL: Awake and alert. No obvious cranial nerve deficits. Motor grossly within normal limits. Five out of 5 muscle strength in the arms and legs. Normal speech. PSYCHIATRIC: Appropriate mood and affect; insight and judgment normal. Data Data Last Documented VS Vital Signs Date Time Temp Pulse Resp B/P (MAP) Pulse Ox O2 Delivery O2 Flow Rate FiO2 08/11/17 19:03 99 Room Air 08/11/17 18:25 98.4 92 22 Orders Orders Electrocardiogram (08/11/17 18:31) B-Type Natriuretic Peptide (08/11/17 18:31) Ckmb (Isoenzyme) Profile (08/11/17 18:31) Complete Blood Count With Diff (08/11/17 18:31) Comprehensive Metabolic Panel (08/11/17 18:31) D-Dimer (08/11/17 18:31) Magnesium (Mg) (08/11/17 18:31) Prothrombin Time / Inr (Pt) (08/11/17 18:31) Act Partial Throm Time (Ptt) (08/11/17 18:31) Troponin I (08/11/17 18:31) Lipase (08/11/17 18:31) Chest, Single Ap (08/11/17 18:31) Ecg Monitoring (08/11/17 18:31) Bilateral Bp Monitoring (08/11/17 18:31) Iv Access Insert/Monitor (08/11/17 18:31) Oximetry (08/11/17 18:31) Aspirin (Aspirin) (08/11/17 18:45) Sodium Chloride 0.9% Flush (Ns Flush) (08/11/17 18:45) CKMB (08/11/17 18:54) CKMB% (08/11/17 18:54) Admit Order (Ed Use Only) (08/11/17 22:49) Labs Laboratory Tests Test 08/11/17 18:54 White Blood Count 8.0 TH/MM3 Red Blood Count 4.55 MIL/MM3 Hemoglobin 13.2 GM/DL Hematocrit 39.3 % Mean Corpuscular Volume 86.4 FL Mean Corpuscular Hemoglobin 29.1 PG Mean Corpuscular Hemoglobin Concent 33.6 % Red Cell Distribution Width 15.9 % Platelet Count 133 TH/MM3 Mean Platelet Volume 9.7 FL Neutrophils (%) (Auto) 55.1 % Lymphocytes (%) (Auto) 36.6 % Monocytes (%) (Auto) 7.2 % Eosinophils (%) (Auto) 0.8 % Basophils (%) (Auto) 0.3 % Neutrophils # (Auto) 4.4 TH/MM3 Lymphocytes # (Auto) 2.9 TH/MM3 Monocytes # (Auto) 0.6 TH/MM3 Eosinophils # (Auto) 0.1 TH/MM3 Basophils # (Auto) 0.0 TH/MM3 CBC Comment DIFF FINAL Differential Comment Prothrombin Time 18.2 SEC Prothromb Time International Ratio 1.6 RATIO Activated Partial Thromboplast Time 36.0 SEC D-Dimer Quantitative (PE/DVT) 0.28 MG/L FEU Blood Urea Nitrogen 13 MG/DL Creatinine 1.17 MG/DL Random Glucose 89 MG/DL Total Protein 6.9 GM/DL Albumin 3.4 GM/DL Calcium Level 8.6 MG/DL Magnesium Level 1.3 MG/DL Alkaline Phosphatase 74 U/L Aspartate Amino Transf (AST/SGOT) 111 U/L Alanine Aminotransferase (ALT/SGPT) 47 U/L Total Bilirubin 1.4 MG/DL Sodium Level 139 MEQ/L Potassium Level 4.6 MEQ/L Chloride Level 108 MEQ/L Carbon Dioxide Level 21.5 MEQ/L Anion Gap 10 MEQ/L Estimat Glomerular Filtration Rate 83 ML/MIN Total Creatine Kinase 232 U/L Creatine Kinase MB 7.1 NG/ML Troponin I 0.11 NG/ML B-Type Natriuretic Peptide 2637 PG/ML Lipase 69 U/L [facility] Medical Decision Making Medical Screen Exam Complete: Yes Emergency Medical Condition: Yes Medical Record Reviewed: Yes Interpretation(s) EKG shows sinus rhythm with no sign of acute ischemia or arrhythmia. Chronic changes from prior EKG noted by my attending and myself. troponin elevated at 0.11 CKMB negative d-dimmer negative INR 1.6 with coags slightly elevated BNP in the CBC & BMP Diagram 08/11/17 18:54 Total Protein 6.9, Albumin 3.4, Calcium Level 8.6, Magnesium Level 1.3 L, Alkaline Phosphatase 74, Aspartate Amino Transf (AST/SGOT) 111 H, Alanine Aminotransferase (ALT/SGPT) 47, Total Bilirubin 1.4 H Lipase WNL Last Impressions Chest X-Ray 08/11/17 1831 Signed Impressions: Service Date/Time: Friday, August 11, 2017 18:37 - CONCLUSION: Persistent patchy airspace opacity, possibly consolidation, in the right lower lung zone. Satya Ku MD Differential Diagnosis Chest pain versus atypical chest pain versus PE versus CHF versus pneumonia versus liver disease Narrative Course 42-year-old male that presents to the ED for evaluation of chest pain. Patient was properly examined and was found to have signs and symptoms of unclear to this time. Labs and imaging were ordered. EKG show chronic changes but no sign of acute disease. Patient was given aspirin. Labs and imaging showed elevated troponin, BNP in the 1999s and a negative d-dimer. Patient still complains of right-sided chest pain. Unclear etiology but unfortunate patient does have significant history including nonischemic cardiomegaly but the as well as previous ischemic ACS. Patient denies any new substance abuse. Patient does not appear to have CHF but his BNP slightly elevated. I did review patient's medical records and his been seen here multiple times for this. He has not been admitted recently in the past 5 months and per the notes from cardiology the day recommended recheck in 3 months for possible ICD secondary to the patient's cardiomyopathy. Unclear if patient ever follow-up outpatient. Patient himself is not the best historian. It noted that multiple notes have mentioned this before as well. She appears to be somewhat compliant with his medications however. Case was discussed in my attending Dr. Rondon who evaluated the records as well as the patient and recommends because of the positive troponin and no recent stress test admission for further evaluation and possible stress test. Chest x-ray did show possible pneumonia but unclear as patient states that he's had some cough but no fevers chills or sweats. We' ll start her on azithromycin to cover for this. TIMMY was paged and Dr Huerta agrees to admission. Diagnosis Primary Impression: Chest pain Qualified Codes: R07.9 - Chest pain, unspecified Additional Impressions: Cardiomyopathy Qualified Codes: I42.9 - Cardiomyopathy, unspecified Elevated troponin Admitting Information Admitting Physician Requests: Noah Frausto Aug 11, 2017 18:42
[2017-08-11] MEDS ORDERED: SODIUM CHLORIDE 0.9% FLUSH 10 ML FLUSH IVF PRN (18:45)
[2017-08-11] MEDS ORDERED: ASPIRIN 325 MG TAB PO ONE (18:45)
--- NOTE | 2017-08-11 18:56 | RADRPT ---
EXAM DATE/TIME: 08/11/2017 18:37 [facility] COMPARISON: CHEST PA & LAT, May 09, 2017, 3:24. CHEST SINGLE AP, April 26, 2017, 16:36. INDICATIONS : Chest pain. MEDICAL HISTORY : Myocardial infarction. Congestive heart failure. Cirrhosis. SURGICAL HISTORY : Exploratory laproscopy. Oral surgery, teeth extraction. Cardiac cath. ENCOUNTER: Initial ACUITY: 1 day PAIN SCORE: 5/10 LOCATION: Bilateral chest FINDINGS: Portable AP view of the chest demonstrates a normal-sized cardiac silhouette. Patchy airspace opacity overlies the right lower lung zone similar to the prior study which demonstrated airspace changes in the right middle lobe. No pleural effusion or pneumothorax is identified. Bones and soft tissues dem onstrate no acute finding. CONCLUSION: Persistent patchy airspace opacity, possibly consolidation, in the right lower lung zone. Satya Ku MD on August 11, 2017 at 18:52 Board Certified Radiologist. This report was verified electronically.
[2017-08-11 19:03] VITALS: O2SAT 99
[2017-08-11 19:34] LABS: AUTOMATED NEUTROPHIL # 4.4 TH/MM3 (1.8-7.7); BASOPHIL % 0.3 % (0.0-2.0); EOSINOPHIL # 0.1 TH/MM3 (0-0.4); EOSINOPHIL % 0.8 % (0.0-4.0); HEMATOCRIT 39.3 % (39.0-51.0); HEMO FLAGS DIFF FINAL; LYMPH % 36.6 % (9.0-44.0); LYMPHOCYTE # 2.9 TH/MM3 (1.0-4.8); MEAN CELL VOLUME 86.4 FL (80.0-100.0); MEAN CORPUSCULAR HEMOGLOBIN 29.1 PG (27.0-34.0); MEAN CORPUSCULAR HGB CONC 33.6 % (32.0-36.0); MONO % 7.2 % (0.0-8.0); NEUT % 55.1 % (16.0-70.0); PLATELET COUNT 133 TH/MM3 (150-450); RED BLOOD COUNT 4.55 MIL/MM3 (4.50-5.90); RED CELL DISTRIBUTION WIDTH 15.9 % (11.6-17.2)
[2017-08-11 20:01] LABS: ALT (GPT) 47 U/L (12-78)
[2017-08-11 20:05] LABS: ALKALINE PHOSPHATASE 74 U/L (45-117); CREATINE KINASE 232 U/L (39-308); TOTAL BILIRUBIN ADULT 1.4 MG/DL (0.2-1.0)
[2017-08-11 20:11] LABS: ANION GAP 10 MEQ/L (5-15); AST (GOT) 111 U/L (15-37); BICARBONATE 21.5 MEQ/L (21.0-32.0); BLOOD UREA NITROGEN 13 MG/DL (7-18); CHLORIDE 108 MEQ/L (98-107); GLOMERULAR FILTRATION RATE 83 ML/MIN (>89); MAGNESIUM 1.3 MG/DL (1.5-2.5); POTASSIUM 4.6 MEQ/L (3.5-5.1); SODIUM (NA) 139 MEQ/L (136-145)
[2017-08-11 20:14] LABS: INTERNATIONAL NORMALIZED RATIO 1.6 RATIO; PROTHROMBIN TIME - PATIENT 18.2 SEC (9.8-11.6)
[2017-08-11 20:19] LABS: CKMB 7.1 NG/ML (0.5-3.6)
[2017-08-11] MEDS ORDERED: HEPARIN-D5W 25,000 U/250 ML 250 ML IV PRN (23:15)
[2017-08-11] MEDS ORDERED: NALOXONE HCL 0.4 MG/ML AMP IV PUSH PRN (23:15)
[2017-08-11] MEDS ORDERED: MAGNESIUM SULFATE 1 GM PREMIX 100 ML IV ONE (23:15)
[2017-08-11 23:22] VITALS: O2SAT 100
[2017-08-11 23:25] VITALS: BP 118/87; PULSE 90; RESP 18; O2SAT 98
[2017-08-12] VITALS (11 sets, daily range): BP systolic 96–121; BP diastolic 63–92; PULSE 76–95; RESP 15–19; TEMP 97.9–98.5; O2SAT 95–100
[2017-08-12] MEDS ORDERED: NITROGLYCERIN 0.4 MG SL 25 TABS/BTL SL PRN
[2017-08-12 00:52] LABS: CREATINE KINASE 161 U/L (39-308)
[2017-08-12 01:04] LABS: CKMB 5.9 NG/ML (0.5-3.6)
[2017-08-12 05:09] LABS: AUTOMATED NEUTROPHIL # 3.7 TH/MM3 (1.8-7.7); BASOPHIL % 0.3 % (0.0-2.0); EOSINOPHIL % 0.7 % (0.0-4.0); HEMATOCRIT 40.7 % (39.0-51.0); HEMO FLAGS DIFF FINAL; LYMPH % 34.6 % (9.0-44.0); LYMPHOCYTE # 2.4 TH/MM3 (1.0-4.8); MEAN CELL VOLUME 85.5 FL (80.0-100.0); MEAN CORPUSCULAR HEMOGLOBIN 28.6 PG (27.0-34.0); MEAN CORPUSCULAR HGB CONC 33.4 % (32.0-36.0); MONO % 10.6 % (0.0-8.0); NEUT % 53.8 % (16.0-70.0); PLATELET COUNT 134 TH/MM3 (150-450); RED BLOOD COUNT 4.76 MIL/MM3 (4.50-5.90); RED CELL DISTRIBUTION WIDTH 16.3 % (11.6-17.2); WHITE BLOOD COUNT 6.9 TH/MM3 (4.0-11.0)
[2017-08-12] MEDS ORDERED: HEPARIN SODIUM - IV 10,000 UNITS/10 ML VIAL IV PUSH PRN ×2 (05:15)
[2017-08-12 05:41] LABS: ANION GAP 13 MEQ/L (5-15); BICARBONATE 17.6 MEQ/L (21.0-32.0); BLOOD UREA NITROGEN 14 MG/DL (7-18); CHLORIDE 108 MEQ/L (98-107); GLOMERULAR FILTRATION RATE 111 ML/MIN (>89); POTASSIUM 4.4 MEQ/L (3.5-5.1); SODIUM (NA) 139 MEQ/L (136-145)
[2017-08-12 05:46] LABS: CREATINE KINASE 152 U/L (39-308)
[2017-08-12 05:59] LABS: CKMB 5.9 NG/ML (0.5-3.6)
--- NOTE | 2017-08-12 06:16 | HHI.HP ---
[facility] Service [facility] Primary Care Physician Dean Santillan, Admission Diagnosis chest pain, R/o ACS, positive troponin, elevated BNP Diagnoses: Travel History International Travel<30 Days: No Contact w/Intl Traveler <30 Da: No Traveled to Known Affected Are: No History of Present Illness 42-year-old male with a past medical history significant for nonischemic cardiomyopathy (echo 12/16/16 with an EF of 20-25%), hypertension, alcohol abuse , tobacco abuse and a history of cocaine abuse presented to the emergency department with complaints of intermittent severe 7/10 stabbing and crushing substernal chest pain that radiates to his back. The patient reports that he took his medication yesterday morning and the pain started shortly after that. He also endorses a 1 day history of cough and shortness of breath. He is a poor historian. He has been seen multiple times for chest pain and has been seen by cardiology multiple times for his nonischemic cardiomyopathy. He had a cardiac catheterization in 2014 that showed patent coronary arteries with moderate to severe left ventricular systolic dysfunction. Review of Systems Denies fever or chills Denies blurry vision, otorrhea, rhinorrhea Denies sore throat, positive cough Positive CP/SOB No abdominal pain Denies constipation/diarrhea/nausea/vomiting Positive back pain No rashes Past Family Social History Past Medical History Anxiety, Depression, Nonischemic Cardiomyopathy (Echo 12/16/16 w/ EF 20-25%), HTN , Alcohol Abuse, Tobacco Abuse and h/o Cocaine Abuse Past Surgical History Exploratory Laparotomy Dental extraction Reported Medications Reported Meds & Active Scripts Active Furosemide 40 Mg Tab 40 Mg PO BID Reported Ramipril 5 Mg Cap 5 Mg PO DAILY Carvedilol 12.5 Mg Tab 12.5 Mg PO BID Omeprazole 20 Mg Tab 20 Mg PO DAILY Klor-Con M20 (Potassium Chloride Microencaps) 20 Meq Tab 20 Meq PO DAILY Xarelto (Rivaroxaban) 20 Mg Tab 20 Mg PO DAILY Isosorbide Mononitrate ER (Isosorbide Mononitrate) 30 Mg Tahir 30 Mg PO DAILY Digoxin 0.25 Mg Tab 0.25 Mg PO DAILY Mirtazapine ODT (Mirtazapine) 30 Mg Tab 30 Mg PO HS Quetiapine (Quetiapine Fumarate) 25 Mg Tab 25 Mg PO HS Allergies: Coded Allergies: Fish Containing Products (Verified Allergy, Severe, itching, 06/10/17) iodine (Verified Allergy, Severe, itching, 06/10/17) potassium iodide (Verified Allergy, Severe, itching, 06/10/17) povidone-iodine (Verified Allergy, Severe, itching, 06/10/17) sodium iodide (Verified Allergy, Severe, itching, 06/10/17) sodium iodide (Verified Allergy, Severe, itching, 06/10/17) Family History No h/o DM or CAD Social History Drinks beer/liquor daily. Smokes 3-5 cigarettes per day. H/o Cocaine, denies recent use. Physical Exam Vital Signs Vital Signs Date Time Temp Pulse Resp B/P (MAP) Pulse Ox O2 Delivery O2 Flow Rate FiO2 08/12/17 04:34 98.2 95 18 117/92 (100) 100 Room Air 08/12/17 02:41 90 18 113/82 (92) 95 Room Air 08/11/17 23:25 90 18 118/87 (97) 98 Room Air 08/11/17 23:22 100 Nasal Cannula 2.00 08/11/17 19:03 99 Room Air 08/11/17 18:25 98.4 92 22 113/81 (92) 99 Room Air Physical Exam GENERAL: Thin AA male lying in bed, sleeping. SKIN: No rashes, ecchymoses or lesions. Cool and dry. HEAD: Atraumatic. Normocephalic. No temporal or scalp tenderness. EYES: Pupils equal round and reactive. Extraocular motions intact. No scleral icterus. No injection or drainage. ENT: Nose without bleeding, purulent drainage or septal hematoma. Throat without erythema, tonsillar hypertrophy or exudate. Uvula midline. Airway patent. NECK: Trachea midline. No JVD or lymphadenopathy. Supple, nontender, no meningeal signs. CARDIOVASCULAR: Regular rate and rhythm without murmurs, gallops, or rubs. RESPIRATORY: Clear to auscultation. Breath sounds equal bilaterally. No wheezes , rales, or rhonchi. GASTROINTESTINAL: Abdomen soft, non-tender, nondistended. No hepato-splenomegaly , or palpable masses. No guarding. MUSCULOSKELETAL: Extremities without clubbing, cyanosis, or edema. No joint tenderness, effusion, or edema noted. NEUROLOGICAL: Awake and alert. Cranial nerves II through XII intact. Motor and sensory grossly within normal limits. Normal speech. Laboratory Laboratory Tests Test 08/11/17 18:54 08/12/17 00:05 08/12/17 04:45 White Blood Count 8.0 6.9 Red Blood Count 4.55 4.76 Hemoglobin 13.2 13.6 Hematocrit 39.3 40.7 Mean Corpuscular Volume 86.4 85.5 Mean Corpuscular Hemoglobin 29.1 28.6 Mean Corpuscular Hemoglobin Concent 33.6 33.4 Red Cell Distribution Width 15.9 16.3 Platelet Count 133 134 Mean Platelet Volume 9.7 8.9 Neutrophils (%) (Auto) 55.1 53.8 Lymphocytes (%) (Auto) 36.6 34.6 Monocytes (%) (Auto) 7.2 10.6 Eosinophils (%) (Auto) 0.8 0.7 Basophils (%) (Auto) 0.3 0.3 Neutrophils # (Auto) 4.4 3.7 Lymphocytes # (Auto) 2.9 2.4 Monocytes # (Auto) 0.6 0.7 Eosinophils # (Auto) 0.1 0.0 Basophils # (Auto) 0.0 0.0 CBC Comment DIFF FINAL DIFF FINAL Differential Comment Prothrombin Time 18.2 Prothromb Time International Ratio 1.6 Activated Partial Thromboplast Time 36.0 D-Dimer Quantitative (PE/DVT) 0.28 Blood Urea Nitrogen 13 14 Creatinine 1.17 0.91 Random Glucose 89 90 Total Protein 6.9 Albumin 3.4 Calcium Level 8.6 8.5 Magnesium Level 1.3 Alkaline Phosphatase 74 Aspartate Amino Transf (AST/SGOT) 111 Alanine Aminotransferase (ALT/SGPT) 47 Total Bilirubin 1.4 Sodium Level 139 139 Potassium Level 4.6 4.4 Chloride Level 108 108 Carbon Dioxide Level 21.5 17.6 Anion Gap 10 13 Estimat Glomerular Filtration Rate 83 111 Total Creatine Kinase 232 161 152 Creatine Kinase MB 7.1 5.9 5.9 Troponin I 0.11 0.09 0.10 B-Type Natriuretic Peptide 2637 Lipase 69 Result Diagram: 08/12/1744408/12/17444 Caprini VTE Risk Assessment Caprini VTE Risk Assessment: No/Low Risk (score <= 1) Caprini Risk Assessment Model Point Value = 1 Point Value = 2 Point Value = 3 Point Value = 5 Age 41-60 Minor surgery BMI > 25 kg/m2 Swollen legs Varicose veins or History of unexplained or recurrent spontaneous Oral contraceptives or hormone replacement Sepsis (< 1 month) Serious lung disease, including pneumonia (< 1 month) Abnormal pulmonary function Acute myocardial infarction Congestive heart failure (< 1 month) History of inflammatory bowel disease Medical patient at bed rest Age 61-74 Arthroscopic surgery Major open surgery (> 45 min) Laparoscopic surgery (> 45 min) Malignancy Confined to bed (> 72 hours) Immobilizing plaster cast Central venous access Age >= 75 History of VTE Family history of VTE Factor V Leiden Prothrombin [id number] Lupus anticoagulant Anticardiolipin antibodies Elevated serum homocysteine Heparin-induced thrombocytopenia Other congenital or acquired thrombophilia Stroke (< 1 month) Elective arthroplasty Hip, pelvis, or leg fracture Acute spinal cord injury (< 1 month) Prophylaxis Regimen Total Risk Factor Score Risk Level Prophylaxis Regimen 0-1 Low Early ambulation 2 Moderate Order ONE of the following: *Sequential Compression Device (SCD) *Heparin 5000 units SQ BID 3-4 Higher Order ONE of the following medications: *Heparin 5000 units SQ TID *Enoxaparin/Lovenox 40 mg SQ daily (WT < 150 kg, CrCl > 30 mL/min) *Enoxaparin/Lovenox 30 mg SQ daily (WT < 150 kg, CrCl > 10-29 mL/min) *Enoxaparin/Lovenox 30 mg SQ BID (WT < 150 kg, CrCl > 30 mL/min) AND/OR *Sequential Compression Device (SCD) 5 or more Highest Order ONE of the following medications: *Heparin 5000 units SQ TID (Preferred with Epidurals) *Enoxaparin/Lovenox 40 mg SQ daily (WT < 150 kg, CrCl > 30 mL/min) *Enoxaparin/Lovenox 30 mg SQ daily (WT < 150 kg, CrCl > 10-29 mL/min) *Enoxaparin/Lovenox 30 mg SQ BID (WT < 150 kg, CrCl > 30 mL/min) AND *Sequential Compression Device (SCD) Assessment and Plan Assessment and Plan 42-year-old male with nonischemic cardiomyopathy presents with a one-day history of chest pain and shortness of breath. Initial troponin elevated at 0.11 which is baseline for the patient. EKG abnormal however unchanged from previous. 1. Chest pain/nonischemic cardiomyopathy/elevated troponin Continue ACS rule out Elevated troponin likely secondary to nonischemic cardiomyopathy and chronic heart failure Patient was evaluated by cardiology on 02/18/17 who recommended medical management 3 months and possible ICD placement Cardiology consulted for further evaluation Continue home medications Last echo (12/16/16) with EF of 20-25 percent Nitroglycerin/morphine for chest pain 2. History of chronic systolic CHF BMP 2637, 24/12/15 in May 2017 Continue Lasix, Imdur and Coreg 3. Prior history of substance abuse Most recent drug screens have been negative Patient denies recent cocaine use, endorses daily alcohol use UDS pending 4. History of COPD Duo nebs when necessary Chest x-ray with no acute cardiopulmonary process, images reviewed by me 5. History of DVT Per chart review, patient had a DVT in 2014 Patient also reports that he had "clots in his lungs" Continue Xarelto FEN Heart healthy diet Electrolytes within normal limits: Monitor and replete when necessary Anticoagulated on Xarelto Tiffany Huerta MD Aug 12, 2017 06:16
[2017-08-12] MEDS: ISOSORBIDE MONONITRATE 30 MG TAB PO SCH (06:39)
[2017-08-12] MEDS ORDERED: ISOSORBIDE MONONITRATE 30 MG TAB PO SCH (09:00)
[2017-08-12] MEDS ORDERED: FUROSEMIDE 40 MG TAB PO SCH (09:00)
[2017-08-12] MEDS: RIVAROXABAN 20 MG TAB PO SCH (09:52)
[2017-08-12] MEDS: RAMIPRIL 5 MG CAP PO SCH (09:52)
[2017-08-12] MEDS: POTASSIUM CHLORIDE 20 MEQ CONTROLLED RELEASE TAB PO SCH (09:52)
[2017-08-12] MEDS: CARVEDILOL 12.5 MG TAB PO SCH ×2 (09:52→21:04)
[2017-08-12] MEDS: DIGOXIN 0.25 MG TAB PO SCH (09:52)
[2017-08-12] MEDS: PANTOPRAZOLE SOD 20 MG DELAYED RELEASE TAB PO SCH (09:52)
[2017-08-12] MEDS ORDERED: predniSONE 50 MG TAB PO SCH (11:30)
--- NOTE | 2017-08-12 11:49 | MB ---
cc: NGOC VARGAS M.D. DATE OF CONSULTATION: 08/12/2017 REASON FOR CONSULTATION Evaluation of chest pain. HISTORY OF PRESENT ILLNESS Satya Valdivia is a 42-year-old man with a known cardiomyopathy. This is probably related to chronic drug use, although his tox screen is negative at this time. He has had a previous cardiac catheterization on May 08, 2015 showing normal coronary arteries. He says he follows with Dr. Yazan Santillan and also follows with a psychiatrist. He has a history of previous polysubstance abuse. He denies smoking marijuana or tobacco. He has had previous cocaine documented on January 14, 2017, November 08, 2014, September 11, 2014, October 06, 2009, May 09, 2007 and February 05, 2005. He comes in now with complaints of chest pain. Also, has some abdominal pain, diarrhea and some shortness of breath. He has a known severe nonischemic dilated cardiomyopathy and a low ejection fraction. It is difficult to tell how compliant he is with his medications. Supposedly he has been on a beta-kash and LLOYD inhibitor. He also has a known psychiatric disorder. PAST MEDICAL HISTORY 1. Psychiatric disorder. 2. Nonischemic cardiomyopathy. 3. Previous substance abuse. PAST SURGICAL HISTORY 1. Exploratory laparotomy. 2. Dental extraction. MEDICATIONS 1. Ramipril 5 mg daily. 2. Carvedilol 12.5 mg b.i.d. 3. Potassium 20 mEq daily. 4. Xarelto 20 mg daily. 5. Imdur 30 mg daily. 6. Digoxin 0.25 mg daily. 7. Furosemide. 8. Quetiapine fumarate 25 mg at bedtime. 9. Mirtazapine 30 mg at bedtime. ALLERGIES HE IS STATED TO HAVE AN IODINE ALLERGY. THERE IS NOTHING IN THE CHART SPECIFICALLY SUGGESTING X-RAY CONTRAST, BUT HE HAS NOT HAD ANY X-RAY CONTRAST PROCEDURES PERFORMED WITHOUT PREMEDICATION. FAMILY HISTORY Family history is negative for cardiac disease. SOCIAL HISTORY Previous smoking. Denies any current smoking. Denies any recent drug use and his tox screen is negative. PHYSICAL EXAMINATION GENERAL: A thin black male lying in bed. He seems to be somewhat [id number]. VITAL SIGNS: Charted. HEENT: Unremarkable. NECK: No JVD. No bruits. CHEST: Clear to auscultation. CARDIAC: PMI displaced to the anterior axillary line. Soft S1, normal S2, probably soft S3. Regular rate and rhythm. No murmurs or gallops. ABDOMEN: Soft, nontender. EXTREMITIES: No clubbing, cyanosis or edema. LABORATORY Laboratories are charted. His troponin curve is flat at 0.11, 0.09 and 0.10, and this is similar to his previous troponins. He had a troponin of 0.11 on May 02, 2017, 0.10 April 26, 2017, 0.15 March 11, 2017. Creatinine is normal at 0.91. Hematocrit is normal at 40.7. IMAGING Chest x-ray is showing patchy airspace opacity. His previous nuclear stress test was difficult to interpret due to the cardiomyopathy. IMPRESSION A 42-year-old male with a description of chest pain that has been going on for days and does not really sound particularly like ischemia. He has had normal coronaries in the past. His last nuclear stress test was difficult to interpret. RECOMMENDATIONS I recommend a noninvasive work-up with a coronary CT and if this is normal perhaps consider him for a defibrillator. I have ordered premedication per the standard radiology protocol for contrast allergy. Hopefully the test can be performed tomorrow. Further therapy to be determined. MD PIPPA Barr/ISAAK /11:30 AM /11:38 AM
[2017-08-12] MEDS ORDERED: diphenhydrAMINE HCL 50 MG CAP PO ONE (12:45)
--- NOTE | 2017-08-12 13:29 | HHI.PR ---
Subjective Remarks Follow up on patient with CHF exacerbation, chest pain. Patient seen and examined. Patient states he feels better now. Chest pain has improved. Denies any other complaints at present except he is hungry and would like to eat. Objective Vitals Vital Signs Date Time Temp Pulse Resp B/P (MAP) Pulse Ox O2 Delivery O2 Flow Rate FiO2 08/12/17 11:40 98.5 82 19 114/79 (91) 98 08/12/17 10:13 97 Nasal Cannula 2.00 08/12/17 10:09 89 19 121/78 (92) 98 Room Air 08/12/17 07:28 93 15 118/85 (96) 97 08/12/17 07:28 93 15 97 08/12/17 06:32 91 16 119/90 (100) 100 Room Air 08/12/17 04:34 98.2 95 18 117/92 (100) 100 Room Air 08/12/17 02:41 90 18 113/82 (92) 95 Room Air 08/11/17 23:25 90 18 118/87 (97) 98 Room Air 08/11/17 23:22 100 Nasal Cannula 2.00 08/11/17 19:03 99 Room Air 08/11/17 18:25 98.4 92 22 113/81 (92) 99 Room Air I/O 08/11/17 08/11/17 08/11/17 08/12/17 08/12/17 08/12/17 07:00 15:00 23:00 07:00 15:00 23:00 Intake Total 100 ml Balance 100 ml Intake IV Total 100 ml Result Diagram: 08/12/17 0445 08/12/17444 Imaging Last Impressions Chest X-Ray 08/11/17 1831 Signed Impressions: Service Date/Time: Friday, August 11, 2017 18:37 - CONCLUSION: Persistent patchy airspace opacity, possibly consolidation, in the right lower lung zone. Satya Ku MD Objective Remarks GENERAL: Thin AA male lying in bed, awake and alert. INAD. SKIN: No rashes, ecchymoses or lesions. Cool and dry. HEAD: Atraumatic. Normocephalic. EYES: Extraocular motions intact. No scleral icterus. No injection or drainage. ENT: Nose without bleeding, purulent drainage or septal hematoma. Airway patent. MMM. NECK: Trachea midline. CARDIOVASCULAR: Regular rate and rhythm without murmurs, gallops, or rubs. RESPIRATORY: Clear to auscultation. Breath sounds equal bilaterally. No wheezes , rales, or rhonchi. GASTROINTESTINAL: Abdomen soft, non-tender, nondistended. No hepato-splenomegaly , or palpable masses. No guarding. MUSCULOSKELETAL: Extremities without clubbing, cyanosis, or edema. No joint tenderness, effusion, or edema noted. NEUROLOGICAL: Awake and alert. Able to move all extremities. Nonfocal. Normal speech. Medications and IVs Current Medications Medications (Trade) Dose Ordered Sig/Talib Route Start Time Stop Time Status Last Admin (NS Flush) 2 ml UNSCH PRN IVF 08/11/17 18:45 (Narcan Inj) 0.4 mg UNSCH PRN IV PUSH 08/11/17 23:15 (Nitrostat Sl) 0.4 mg Q5M PRN SL 08/12/17 00:00 (Morphine Inj) 2 mg Q30M PRN IV PUSH 08/12/17 00:00 08/12/17 04:36 (Coreg) 12.5 mg BID PO 08/12/17 09:00 08/12/17 09:52 (Lanoxin) 0.25 mg DAILY PO 08/12/17 09:00 08/12/17 09:52 (Lasix) 40 mg BID PO 08/12/17 09:00 Future Hold (Remeron Soltab Odt) 30 mg HS PO 08/12/17 21:00 (KCl) 20 meq DAILY PO 08/12/17 09:00 08/12/17 09:52 (SEROquel) 25 mg HS PO 08/12/17 21:00 (Altace) 5 mg DAILY PO 08/12/17 09:00 08/12/17 09:52 (Xarelto) 20 mg DAILY PO 08/12/17 09:00 08/12/17 09:52 (Protonix) 20 mg DAILY PO 08/12/17 09:00 08/12/17 09:52 (Imdur) 30 mg DAILY@0700 PO 08/12/17 07:00 08/12/17 06:39 (Lasix Inj) 40 mg BID@,18 IV PUSH 08/12/17 18:00 (Deltasone) 50 mg Q6H PO 08/12/17 20:00 08/13/17 08:01 (Flu (Quadrivalent) Vaccine Inj) 0.5 ml ONCE ONCE IM 08/13/17 10:00 08/13/17 10:01 A/P Assessment and Plan 42-year-old male with nonischemic cardiomyopathy presents with a one-day history of chest pain and shortness of breath. Initial troponin elevated at 0.11 which is baseline for the patient. EKG abnormal however unchanged from previous. 1. Chest pain/nonischemic cardiomyopathy/elevated troponin Continue ACS rule out Elevated troponin likely secondary to nonischemic cardiomyopathy and chronic heart failure, trops 0.11, 0.09, 0.10. Patient was evaluated by cardiology on 02/18/17 who recommended medical management 3 months and possible ICD placement Cardiology consulted for further evaluation, evaluated by Dr. Rondon, appreciate recommendations - noninvasive workup with coronary CT possibly followed by possible defibrillator Continue home medications Last echo (12/16/16) with EF of 20-25 percent Nitroglycerin/morphine for chest pain obtain TSH level 2. History of chronic systolic CHF BNP 2637, does not appear decompensated Continue Imdur and Coreg Lasix 40mg IV given - monitor electrolytes begin Torsemide 10mg BID strict I&Os heart healthy fluid/salt restricted diet 3. Prior history of substance abuse Most recent drug screens have been negative Patient denies recent cocaine use, endorses daily alcohol use Advised on continued abstinence UDS positive for opiates only 4. History of COPD Duo nebs when necessary Chest x-ray with shows persistent patchy airspace opacity, possibly consolidation in right lower lung field monitor respiratory status IS at bedside, encourage use 5. History of DVT Per chart review, patient had a DVT in 2014 Patient also reports that he had "clots in his lungs" Continue Xarelto 6. Hypomagnesemia s/p IV repletion am labs to monitor response 7. DVT prophylaxis Patient is on Xarelto Discussed with patient, nursing staff and Althea Car Aug 12, 2017 13:29
[2017-08-12] MEDS: MAGNESIUM SULFATE 1 GM PREMIX 100 ML IV SCH ×4 (14:42→19:16)
[2017-08-12 14:45] LABS: CREATINE KINASE 123 U/L (39-308)
[2017-08-12 14:58] LABS: CKMB 5.1 NG/ML (0.5-3.6)
[2017-08-12] MEDS: TORSEMIDE 5 MG TAB PO SCH (18:00)
[2017-08-12] MEDS ORDERED: FUROSEMIDE 40 MG/4 ML VIAL IV PUSH SCH (18:00)
--- NOTE | 2017-08-12 19:07 | EKG ---
Date Performed: 08/11/2017 Time Performed: 18:22:42 PTAGE: 42 years EKG: Sinus rhythm POSSIBLE RIGHT ATRIAL ENLARGEMENT LEFT ATRIAL ENLARGEMENT POSSIBLE RIGHT VENTRICULAR CONDUCTION FABIOLA Y LEFT ANTERIOR FASCICULAR BLOCK ANTEROSEPTAL MYOCARDIAL INFARCTION ACUTE CO Compared to prior tracing no significant change PREVIOUS TRACING : 05/09/2017 03.32.27 DOCTOR: Richa Galarza Interpretating Date/Time 08/12/2017 19:06:16
--- NOTE | 2017-08-12 19:07 | EKG ---
Date Performed: 08/11/2017 Time Performed: 23:58:45 PTAGE: 42 years EKG: Sinus rhythm LEFT ATRIAL ENLARGEMENT POSSIBLE RIGHT VENTRICULAR CONDUCTION DELAY LEFT ANTERIOR FASCICULAR BLOCK A NTERIOR MYOCARDIAL INFARCTION ACUTE DC Compared to prior tracing no significant change PREVIOUS TRACING : 08/11/2017 18.22 DOCTOR: Richa Galarza Interpretating Date/Time 08/12/2017 19:06:33
--- NOTE | 2017-08-12 19:08 | EKG ---
Date Performed: 08/12/2017 Time Performed: 06:02:39 PTAGE: 42 years EKG: Sinus rhythm LEFT ATRIAL ENLARGEMENT INCOMPLETE RIGHT BUNDLE BRANCH BLOCK LEFT ANTERIOR FASCICULAR BLOCK ANTEROSE PTAL MYOCARDIAL INFARCTION MODERATE T-WAVE ABNORMALITY, CONSIDER LATERAL ISCHEMIA ABNORMAL ECG Compar ed to prior tracing no significant change PREVIOUS TRACING : 08/11/2017 23.58 DOCTOR: Richa Galarza Interpretating Date/Time 08/12/2017 19:06:48
--- NOTE | 2017-08-12 20:18 | HHI.PR ---
Subjective Remarks not seen Objective Vitals Vital Signs Date Time Temp Pulse Resp B/P (MAP) Pulse Ox O2 Delivery O2 Flow Rate FiO2 08/12/17 16:12 79 08/12/17 15:43 98.4 79 18 107/68 (81) 96 08/12/17 11:40 98.5 82 19 114/79 (91) 98 08/12/17 10:13 97 Nasal Cannula 2.00 08/12/17 10:09 89 19 121/78 (92) 98 Room Air 08/12/17 07:28 93 15 118/85 (96) 97 08/12/17 07:28 93 15 97 08/12/17 06:32 91 16 119/90 (100) 100 Room Air 08/12/17 04:34 98.2 95 18 117/92 (100) 100 Room Air 08/12/17 02:41 90 18 113/82 (92) 95 Room Air 08/11/17 23:25 90 18 118/87 (97) 98 Room Air 08/11/17 23:22 100 Nasal Cannula 2.00 I/O 08/11/17 08/11/17 08/11/17 08/12/17 08/12/17 08/12/17 07:00 15:00 23:00 07:00 15:00 23:00 Intake Total 100 ml 740 ml Balance 100 ml 740 ml Intake Oral 240 ml IV Total 100 ml 500 ml Result Diagram: 08/12/17 0445 08/12/17 0445 Imaging Last Impressions Chest X-Ray 08/11/17 1831 Signed Impressions: Service Date/Time: Friday, August 11, 2017 18:37 - CONCLUSION: Persistent patchy airspace opacity, possibly consolidation, in the right lower lung zone. Satya Ku MD Objective Remarks GENERAL: Thin AA male lying in bed, awake and alert. INAD. SKIN: No rashes, ecchymoses or lesions. Cool and dry. HEAD: Atraumatic. Normocephalic. EYES: Extraocular motions intact. No scleral icterus. No injection or drainage. ENT: Nose without bleeding, purulent drainage or septal hematoma. Airway patent. MMM. NECK: Trachea midline. CARDIOVASCULAR: Regular rate and rhythm without murmurs, gallops, or rubs. RESPIRATORY: Clear to auscultation. Breath sounds equal bilaterally. No wheezes , rales, or rhonchi. GASTROINTESTINAL: Abdomen soft, non-tender, nondistended. No hepato-splenomegaly , or palpable masses. No guarding. MUSCULOSKELETAL: Extremities without clubbing, cyanosis, or edema. No joint tenderness, effusion, or edema noted. NEUROLOGICAL: Awake and alert. Able to move all extremities. Nonfocal. Normal speech. A/P Problem List: (1) Chest pain ICD Code: R07.9 - Chest pain Status: Acute (2) Dyspnea ICD Code: R06.00 - Dyspnea Status: Acute Assessment and Plan 42-year-old male with nonischemic cardiomyopathy presents with a one-day history of chest pain and shortness of breath. Initial troponin elevated at 0.11 which is baseline for the patient. EKG abnormal however unchanged from previous. 1. Chest pain/nonischemic cardiomyopathy/elevated troponin Continue ACS rule out Elevated troponin likely secondary to nonischemic cardiomyopathy and chronic heart failure, trops 0.11, 0.09, 0.10. Patient was evaluated by cardiology on 02/18/17 who recommended medical management 3 months and possible ICD placement Cardiology consulted for further evaluation, evaluated by Dr. Rondon, appreciate recommendations - noninvasive workup with coronary CT possibly followed by possible defibrillator Continue home medications Last echo (12/16/16) with EF of 20-25 percent Nitroglycerin/morphine for chest pain obtain TSH level 2. History of chronic systolic CHF BNP 2637, does not appear decompensated Continue Imdur and Coreg Lasix 40mg IV given - monitor electrolytes begin Torsemide 10mg BID strict I&Os heart healthy fluid/salt restricted diet 3. Prior history of substance abuse Most recent drug screens have been negative Patient denies recent cocaine use, endorses daily alcohol use Advised on continued abstinence UDS positive for opiates only 4. History of COPD Duo nebs when necessary Chest x-ray with shows persistent patchy airspace opacity, possibly consolidation in right lower lung field monitor respiratory status IS at bedside, encourage use 5. History of DVT Per chart review, patient had a DVT in 2014 Patient also reports that he had "clots in his lungs" Continue Xarelto 6. Hypomagnesemia s/p IV repletion am labs to monitor response 7. DVT prophylaxis Patient is on Xarelto Problem Qualifiers (1) Chest pain: Qualified Codes: R07.9 - Chest pain, unspecified Abando,Nate MD Aug 12, 2017 20:18
[2017-08-12] MEDS ORDERED: MORPHINE SULFATE 4 MG/ML INJ IV PUSH PRN ×2 (20:30)
[2017-08-12] MEDS: MIRTAZAPINE ODT 30 MG TAB PO SCH (21:04)
[2017-08-12] MEDS: predniSONE 50 MG TAB PO SCH (21:04)
[2017-08-12] MEDS: QUEtiapine FUMARATE 25 MG TAB PO SCH (21:04)
[2017-08-13] VITALS (10 sets, daily range): BP systolic 94–120; BP diastolic 62–77; PULSE 52–78; RESP 18–21; TEMP 97.4–98.6; O2SAT 93–99
[2017-08-13] MEDS: predniSONE 50 MG TAB PO SCH ×2 (01:20→10:05)
[2017-08-13] MEDS: ISOSORBIDE MONONITRATE 30 MG TAB PO SCH (06:32)
[2017-08-13 07:11] LABS: ALKALINE PHOSPHATASE 60 U/L (45-117); ALT (GPT) 31 U/L (12-78); ANION GAP 12 MEQ/L (5-15); AST (GOT) 43 U/L (15-37); BICARBONATE 20.6 MEQ/L (21.0-32.0); BLOOD UREA NITROGEN 18 MG/DL (7-18); CHLORIDE 105 MEQ/L (98-107); GLOMERULAR FILTRATION RATE 83 ML/MIN (>89); POTASSIUM 4.3 MEQ/L (3.5-5.1); SODIUM (NA) 138 MEQ/L (136-145); TOTAL BILIRUBIN ADULT 1.2 MG/DL (0.2-1.0)
[2017-08-13] MEDS ORDERED: GLUCAGON 1 MG/ML VIAL OTHER PRN (08:15)
[2017-08-13] MEDS ORDERED: DEXTROSE 50% IN WATER 50 ML VIAL(D50) IV PUSH PRN (08:15)
[2017-08-13] MEDS ORDERED: METOPROLOL TARTRATE 50 MG TAB PO STA (08:24)
[2017-08-13] MEDS: RAMIPRIL 5 MG CAP PO SCH (09:00)
[2017-08-13] MEDS: TORSEMIDE 5 MG TAB PO SCH ×2 (09:00→19:14)
[2017-08-13] MEDS ORDERED: INFLUENZA VIRUS VACCINE (QUADRIVALENT) 0.5 ML SYR IM ONE (10:00)
[2017-08-13] MEDS: DIGOXIN 0.25 MG TAB PO SCH (10:03)
[2017-08-13] MEDS: PANTOPRAZOLE SOD 20 MG DELAYED RELEASE TAB PO SCH (10:03)
[2017-08-13] MEDS: POTASSIUM CHLORIDE 20 MEQ CONTROLLED RELEASE TAB PO SCH (10:04)
[2017-08-13] MEDS: RIVAROXABAN 20 MG TAB PO SCH (10:08)
[2017-08-13] MEDS ORDERED: diphenhydrAMINE HCL 50 MG CAP PO ONE (12:00)
[2017-08-13] MEDS: INSULIN ASPART SUPPLEMENTAL SCALE SQ SCH ×3 (13:20→20:01)
[2017-08-13] MEDS ORDERED: NITROGLYCERIN 0.4 MG SL 25 TABS/BTL SL ONE (13:36)
--- NOTE | 2017-08-13 13:36 | HHI.PR ---
Subjective Remarks Follow-up cardiomyopathy. Patient has no complaints waiting for CTA. States he does not want surgery discussed with RN. Also denies pneumonia symptoms Objective Vitals Vital Signs Date Time Temp Pulse Resp B/P (MAP) Pulse Ox O2 Delivery O2 Flow Rate FiO2 08/13/17 11:42 97.4 63 21 100/63 (75) 99 08/13/17 10:10 104/70 (81) 08/13/17 08:12 97.5 62 19 94/62 (73) 98 08/13/17 05:32 98.3 78 18 104/65 (78) 95 08/13/17 00:39 70 08/12/17 23:44 97.9 78 18 96/63 (74) 98 08/12/17 20:24 98.2 76 18 105/65 (78) 98 08/12/17 16:12 79 08/12/17 15:43 98.4 79 18 107/68 (81) 96 I/O 08/12/17 08/12/17 08/12/17 08/13/17 08/13/17 08/13/17 07:00 15:00 23:00 07:00 15:00 23:00 Intake Total 100 ml 740 ml Balance 100 ml 740 ml Intake Oral 240 ml IV Total 100 ml 500 ml Result Diagram: 08/12/17 0445 08/13/17 0540 Imaging Last Impressions Chest X-Ray 08/11/17 1831 Signed Impressions: Service Date/Time: Friday, August 11, 2017 18:37 - CONCLUSION: Persistent patchy airspace opacity, possibly consolidation, in the right lower lung zone. Satya Ku MD Objective Remarks GENERAL: Thin AA male lying in bed, awake and alert. INAD. SKIN: No rashes, ecchymoses or lesions. Cool and dry. CARDIOVASCULAR: Regular rate and rhythm without murmurs, gallops, or rubs. RESPIRATORY: Clear to auscultation. Breath sounds equal bilaterally. No wheezes , rales, or rhonchi. GASTROINTESTINAL: Abdomen soft, non-tender, nondistended. No guarding. MUSCULOSKELETAL: Extremities without clubbing, cyanosis, or edema. No joint tenderness, effusion, or edema noted. NEUROLOGICAL: Awake and alert. Able to move all extremities. Nonfocal. Normal speech. A/P Problem List: (1) Chest pain ICD Code: R07.9 - Chest pain Status: Acute (2) Dyspnea ICD Code: R06.00 - Dyspnea Status: Acute Assessment and Plan 42-year-old male with nonischemic cardiomyopathy presents with a one-day history of chest pain and shortness of breath. Initial troponin elevated at 0.11 which is baseline for the patient. EKG abnormal however unchanged from previous. 1. Chest pain/nonischemic cardiomyopathy/elevated troponin Elevated troponin likely secondary to nonischemic cardiomyopathy and chronic heart failure, trops 0.11, 0.09, 0.10. Patient was evaluated by cardiology on 02/18/17 who recommended medical management 3 months and possible ICD placement Cardiology consulted for further evaluation, evaluated by Dr. Rondon, appreciate recommendations - noninvasive workup with coronary CT possibly followed by possible defibrillator if normal coronaries Continue home medications of ramipril and Coreg Last echo (12/16/16) with EF of 20-25 percent Nitroglycerin/morphine for chest pain 2. History of chronic systolic CHF BNP 2637, does not appear decompensated Continue Imdur and Coreg Lasix 40mg IV given - monitor electrolytes begin Torsemide 10mg BID strict I&Os heart healthy fluid/salt restricted diet 3. Prior history of substance abuse Most recent drug screens have been negative Patient denies recent cocaine use, endorses daily alcohol use Advised on continued abstinence UDS positive for opiates only 4. History of COPD Duo nebs when necessary Chest x-ray with shows persistent patchy airspace opacity, possibly consolidation in right lower lung field, patient denies respiratory symptoms. No leukocytosis monitor respiratory status IS at bedside, encourage use 5. History of DVT Per chart review, patient had a DVT in 2014 Patient also reports that he had "clots in his lungs" Continue Xarelto 6. Hypomagnesemia s/p IV repletion am labs to monitor response 7. Hyperglycemia with recent steroid use. Check A1c. Monitor fingerstick sliding scale coverage DVT prophylaxis Patient is on Xarelto Discharge Planning Discharge when cleared by cardiology Problem Qualifiers (1) Chest pain: Qualified Codes: R07.9 - Chest pain, unspecified Connor Broussard MD Aug 13, 2017 13:36
[2017-08-13] MEDS ORDERED: IOHEXOL 350 MG/ML 10 ML VIAL (for RAD DIAG) IVCONTRAST ONE (14:22)
--- NOTE | 2017-08-13 14:35 | RADRPT ---
EXAM DATE/TIME: 08/13/2017 13:26 [facility] COMPARISON: No previous studies available for comparison. INDICATIONS : Chest pain IV CONTRAST: 68 cc Omnipaque 350 (iohexol) IV RADIATION DOSE: 3.83 CTDIvol (mGy) MEDICAL HISTORY : Chronic obstructive pulmonary disease. Congestive heart failure. Cardiovascular disease SURGICAL HISTORY : None. ENCOUNTER: Initial ACUITY: 1 day PAIN SCALE: 5/10 LOCATION: chest Patient was premedicated for underlying contrast media allergy. TECHNIQUE: Volumetric scanning was obtained through the heart. Images were acquired on a multislice multiple ro w detector helical scanner timed for acquisition during peak arterial contrast. Images were reconstr ucted using a retrospective gating algorithm including single sector and multi-sector algorithms at m ultiple phases of the cardiac cycle. Images were interpreted using a combination of 2D and 3D visual ization modes including curved planar reformation, thin slab maximum intensity projection and volume rendering. Using automated exposure control and adjustment of the mA and/or kV according to patient size, radiation dose was kept as low as reasonably achievable to obtain optimal diagnostic quality im ages. DICOM format image data is available electronically for review and comparison. FINDINGS: VESSEL ANALYSIS: DOMINANCE: The coronary system is left dominant. LEFT MAIN: Normal vessel without calcification or stenosis. LAD: Normal vessel without calcification or stenosis. CIRCUMFLEX: Normal vessel without calcification or stenosis. RCA: Normal vessel without calcification or stenosis. OTHER: None. CONCLUSION: Normal coronaries Satya Méndez MD on August 13, 2017 at 14:30 Board Certified Radiologist. This report was verified electronically.
[2017-08-13 17:23] LABS: HEMOGLOBIN A1a 1.5 %; HEMOGLOBIN A1b 1.1 %; HEMOGLOBIN Ao 80.6 %; HEMOGLOBIN F 1.3 %; HEMOGLOBIN LA1C 4.4 %; HEMOGLOBIN P3 4.4 %
[2017-08-13] MEDS: MIRTAZAPINE ODT 30 MG TAB PO SCH (20:10)
[2017-08-13] MEDS: QUEtiapine FUMARATE 25 MG TAB PO SCH (20:10)
[2017-08-14 03:13] VITALS: BP 118/80; PULSE 56; RESP 18; TEMP 97.9; O2SAT 99
[2017-08-14] MEDS: ISOSORBIDE MONONITRATE 30 MG TAB PO SCH (06:09)
[2017-08-14 07:43] VITALS: BP 109/65; PULSE 53; RESP 20; TEMP 98.3; O2SAT 99
[2017-08-14 08:00] VITALS: PULSE 79
[2017-08-14] MEDS: INSULIN ASPART SUPPLEMENTAL SCALE SQ SCH (08:00)
--- NOTE | 2017-08-14 08:50 | PD.CARD.PN ---
Subjective Subjective Remarks chest pain resolved Objective Medications Current Medications Medications (Trade) Dose Ordered Sig/Talib Route Start Time Stop Time Status Last Admin (NS Flush) 2 ml UNSCH PRN IVF 08/11/17 18:45 (Narcan Inj) 0.4 mg UNSCH PRN IV PUSH 08/11/17 23:15 (Nitrostat Sl) 0.4 mg Q5M PRN SL 08/12/17 00:00 (Coreg) 12.5 mg BID PO 08/12/17 09:00 Future Hold 08/12/17 21:04 (Lanoxin) 0.25 mg DAILY PO 08/12/17 09:00 08/13/17 10:03 (Remeron Soltab Odt) 30 mg HS PO 08/12/17 21:00 08/13/17 20:10 (KCl) 20 meq DAILY PO 08/12/17 09:00 08/13/17 10:04 (SEROquel) 25 mg HS PO 08/12/17 21:00 08/13/17 20:10 (Altace) 5 mg DAILY PO 08/12/17 09:00 08/12/17 09:52 (Xarelto) 20 mg DAILY PO 08/12/17 09:00 08/13/17 10:08 (Protonix) 20 mg DAILY PO 08/12/17 09:00 08/13/17 10:03 (Imdur) 30 mg DAILY@0700 PO 08/12/17 07:00 08/14/17 06:09 (Demadex) 10 mg BID@09,18 PO 08/12/17 18:00 08/13/17 19:14 (Morphine Inj) 1 mg Q30M PRN IV PUSH 08/12/17 20:30 (D50w (Vial) Inj) 50 ml UNSCH PRN IV PUSH 08/13/17 08:15 (Glucagon Inj) 1 mg UNSCH PRN OTHER 08/13/17 08:15 (NovoLOG SUPPLEMENTAL SCALE) 1 ACHS SLIDING SCALE SQ 08/13/17 12:00 08/13/17 13:20 (Coreg) 12.5 mg Q12HR PO 08/14/17 09:00 UNV Vital Signs / I&O Vital Signs Date Time Temp Pulse Resp B/P (MAP) Pulse Ox O2 Delivery O2 Flow Rate FiO2 08/14/17 07:43 98.3 53 20 109/65 (80) 99 08/14/17 03:13 97.9 56 18 118/80 (93) 99 08/13/17 23:35 97.7 59 18 109/65 (80) 99 08/13/17 23:11 52 08/13/17 19:47 97.7 60 18 120/75 (90) 99 08/13/17 17:04 98.6 63 19 115/77 (90) 93 08/13/17 11:42 97.4 63 21 100/63 (75) 99 08/13/17 10:10 104/70 (81) I/O 08/13/17 08/13/17 08/13/17 08/14/17 08/14/17 08/14/17 07:00 15:00 23:00 07:00 15:00 23:00 Intake Total 600 ml Balance 600 ml Intake Oral 600 ml # Voids 4 # Bowel Movements 0 Physical Exam GENERAL: Thin No acute distress. HEENT: Mild JVD. CHEST: Lungs clear to auscultation bilaterally. Unlabored respiratory effort. CARDIAC: Regular rate and rhythm with S3, PMI laterally displaced ABDOMEN: Soft, nontender, no hepatosplenomegaly. Bowel sounds present. EXTREMITIES: No clubbing, cyanosis, or edema. Laboratory Laboratory Tests Test 08/13/17 10:33 Hemoglobin A1c 5.8 % Imaging Last 48 hours Impressions Coronary Angiography CT 08/13/17 0000 Signed Impressions: Service Date/Time: Sunday, August 13, 2017 13:26 - CONCLUSION: Normal coronaries Satya Méndez MD Assessment and Plan Problem List: (1) Chronic systolic CHF (congestive heart failure) ICD Codes: I50.22 - Chronic systolic CHF (congestive heart failure) Status: Chronic (2) Nonischemic cardiomyopathy ICD Codes: I42.8 - Other cardiomyopathies Status: Chronic (3) Atypical chest pain ICD Codes: R07.89 - Other chest pain Status: Acute Assessment and Plan Consult Jesse Juan MD Aug 14, 2017 08:49
[2017-08-14] MEDS: TORSEMIDE 5 MG TAB PO SCH (09:00)
[2017-08-14] MEDS ORDERED: CARVEDILOL 12.5 MG TAB PO SCH (09:00)
[2017-08-14] MEDS: RAMIPRIL 5 MG CAP PO SCH (09:00)
--- NOTE | 2017-08-14 09:29 | PD.AMA ---
Against Medical Advice Note Discharge Disposition: Against Medical Advice AMA Statement Patient Satya Valdivia has decided to leave the hospital against medical advice. This patient has the capacity to refuse care and understands the risks of leaving, including permanent disability and/or , and has had an opportunity to ask questions about his condition. The patient has been informed that he may return for care at any time, and follow up has been arranged/ advised. Connor Broussard MD Aug 14, 2017 09:29
--- NOTE | 2017-08-14 09:29 | HHI.DS ---
Discharge Summary Admission Date Aug 11, 2017 at 22:51 Admitting Diagnosis chest pain, R/o ACS, positive troponin, elevated BNP (1) Chest pain ICD Code: R07.9 - Chest pain Status: Acute (2) Dyspnea ICD Code: R06.00 - Dyspnea Status: Acute Brief History - From Admission 42-year-old male with a past medical history significant for nonischemic cardiomyopathy (echo 12/16/16 with an EF of 20-25%), hypertension, alcohol abuse , tobacco abuse and a history of cocaine abuse presented to the emergency department with complaints of intermittent severe 7/10 stabbing and crushing substernal chest pain that radiates to his back. The patient reports that he took his medication yesterday morning and the pain started shortly after that. He also endorses a 1 day history of cough and shortness of breath. He is a poor historian. He has been seen multiple times for chest pain and has been seen by cardiology multiple times for his nonischemic cardiomyopathy. He had a cardiac catheterization in 2014 that showed patent coronary arteries with moderate to severe left ventricular systolic dysfunction. CBC/BMP: 08/12/17 0445 08/13/17 0540 Significant Findings Laboratory Tests Test 08/11/17 18:54 08/12/17 00:05 08/12/17 04:45 08/12/17 08:30 Platelet Count 133 TH/MM3 (150-450) 134 TH/MM3 (150-450) Prothrombin Time 18.2 SEC (9.8-11.6) Activated Partial Thromboplast Time 36.0 SEC (24.3-30.1) Magnesium Level 1.3 MG/DL (1.5-2.5) Aspartate Amino Transf (AST/SGOT) 111 U/L (15-37) Total Bilirubin 1.4 MG/DL (0.2-1.0) Chloride Level 108 MEQ/L (98-107) 108 MEQ/L (98-107) Estimat Glomerular Filtration Rate 83 ML/MIN (>89) Creatine Kinase MB 7.1 NG/ML (0.5-3.6) 5.9 NG/ML (0.5-3.6) 5.9 NG/ML (0.5-3.6) Troponin I 0.11 NG/ML (0.02-0.05) 0.09 NG/ML (0.02-0.05) 0.10 NG/ML (0.02-0.05) B-Type Natriuretic Peptide 2637 PG/ML (0-100) Lipase 69 U/L (73-393) Monocytes (%) (Auto) 10.6 % (0.0-8.0) Carbon Dioxide Level 17.6 MEQ/L (21.0-32.0) Urine Opiates Screen POS (NEG) Test 08/12/17 13:09 08/13/17 05:40 08/13/17 10:33 Creatine Kinase MB 5.1 NG/ML (0.5-3.6) Troponin I 0.09 NG/ML (0.02-0.05) Random Glucose 268 MG/DL (74-106) Albumin 2.8 GM/DL (3.4-5.0) Calcium Level 8.3 MG/DL (8.5-10.1) Aspartate Amino Transf (AST/SGOT) 43 U/L (15-37) Total Bilirubin 1.2 MG/DL (0.2-1.0) Carbon Dioxide Level 20.6 MEQ/L (21.0-32.0) Estimat Glomerular Filtration Rate 83 ML/MIN (>89) PE at Discharge GENERAL: Thin AA male lying in bed, awake and alert. INAD. SKIN: No rashes, ecchymoses or lesions. Cool and dry. CARDIOVASCULAR: Regular rate and rhythm without murmurs, gallops, or rubs. RESPIRATORY: Clear to auscultation. Breath sounds equal bilaterally. No wheezes , rales, or rhonchi. GASTROINTESTINAL: Abdomen soft, non-tender, nondistended. No guarding. MUSCULOSKELETAL: Extremities without clubbing, cyanosis, or edema. No joint tenderness, effusion, or edema noted. NEUROLOGICAL: Awake and alert. Able to move all extremities. Nonfocal. Normal speech. Connor Broussard MD Aug 14, 2017 09:29
[2017-08-14] MEDS: POTASSIUM CHLORIDE 20 MEQ CONTROLLED RELEASE TAB PO SCH (09:36)
[2017-08-14] MEDS: PANTOPRAZOLE SOD 20 MG DELAYED RELEASE TAB PO SCH (09:36)
[2017-08-14] MEDS: DIGOXIN 0.25 MG TAB PO SCH (09:37)
--- NOTE | 2017-08-14 17:16 | HHI.DS ---
Discharge Summary Admission Date Aug 11, 2017 at 22:51 Discharge Date: Aug 14, 2017 Admitting Diagnosis chest pain, R/o ACS, positive troponin, elevated BNP (1) Chest pain ICD Code: R07.9 - Chest pain Diagnosis: Principal Status: Acute (2) Dyspnea ICD Code: R06.00 - Dyspnea Diagnosis: Principal Status: Acute Procedures none Brief History - From Admission 42-year-old male with a past medical history significant for nonischemic cardiomyopathy (echo 12/16/16 with an EF of 20-25%), hypertension, alcohol abuse , tobacco abuse and a history of cocaine abuse presented to the emergency department with complaints of intermittent severe 7/10 stabbing and crushing substernal chest pain that radiates to his back. The patient reports that he took his medication yesterday morning and the pain started shortly after that. He also endorses a 1 day history of cough and shortness of breath. He is a poor historian. He has been seen multiple times for chest pain and has been seen by cardiology multiple times for his nonischemic cardiomyopathy. He had a cardiac catheterization in 2014 that showed patent coronary arteries with moderate to severe left ventricular systolic dysfunction. CBC/BMP: 08/12/17 0445 08/13/17 0540 Significant Findings Laboratory Tests Test 08/11/17 18:54 08/12/17 00:05 08/12/17 04:45 08/12/17 08:30 Platelet Count 133 TH/MM3 (150-450) 134 TH/MM3 (150-450) Prothrombin Time 18.2 SEC (9.8-11.6) Activated Partial Thromboplast Time 36.0 SEC (24.3-30.1) Magnesium Level 1.3 MG/DL (1.5-2.5) Aspartate Amino Transf (AST/SGOT) 111 U/L (15-37) Total Bilirubin 1.4 MG/DL (0.2-1.0) Chloride Level 108 MEQ/L (98-107) 108 MEQ/L (98-107) Estimat Glomerular Filtration Rate 83 ML/MIN (>89) Creatine Kinase MB 7.1 NG/ML (0.5-3.6) 5.9 NG/ML (0.5-3.6) 5.9 NG/ML (0.5-3.6) Troponin I 0.11 NG/ML (0.02-0.05) 0.09 NG/ML (0.02-0.05) 0.10 NG/ML (0.02-0.05) B-Type Natriuretic Peptide 2637 PG/ML (0-100) Lipase 69 U/L (73-393) Monocytes (%) (Auto) 10.6 % (0.0-8.0) Carbon Dioxide Level 17.6 MEQ/L (21.0-32.0) Urine Opiates Screen POS (NEG) Test 08/12/17 13:09 08/13/17 05:40 08/13/17 10:33 Creatine Kinase MB 5.1 NG/ML (0.5-3.6) Troponin I 0.09 NG/ML (0.02-0.05) Random Glucose 268 MG/DL (74-106) Albumin 2.8 GM/DL (3.4-5.0) Calcium Level 8.3 MG/DL (8.5-10.1) Aspartate Amino Transf (AST/SGOT) 43 U/L (15-37) Total Bilirubin 1.2 MG/DL (0.2-1.0) Carbon Dioxide Level 20.6 MEQ/L (21.0-32.0) Estimat Glomerular Filtration Rate 83 ML/MIN (>89) Imaging Last Impressions Coronary Angiography CT 08/13/17 0000 Signed Impressions: Service Date/Time: Sunday, August 13, 2017 13:26 - CONCLUSION: Normal coronaries Satya Méndez MD Chest X-Ray 08/11/17 1831 Signed Impressions: Service Date/Time: Friday, August 11, 2017 18:37 - CONCLUSION: Persistent patchy airspace opacity, possibly consolidation, in the right lower lung zone. Satya Ku MD PE at Discharge GENERAL: Thin AA male lying in bed, awake and alert. INAD. SKIN: No rashes, ecchymoses or lesions. Cool and dry. CARDIOVASCULAR: Regular rate and rhythm without murmurs, gallops, or rubs. RESPIRATORY: Clear to auscultation. Breath sounds equal bilaterally. No wheezes , rales, or rhonchi. GASTROINTESTINAL: Abdomen soft, non-tender, nondistended. No guarding. MUSCULOSKELETAL: Extremities without clubbing, cyanosis, or edema. No joint tenderness, effusion, or edema noted. NEUROLOGICAL: Awake and alert. Able to move all extremities. Nonfocal. Normal speech. Hospital Course 42-year-old male with nonischemic cardiomyopathy presents with a one-day history of chest pain and shortness of breath. Initial troponin elevated at 0.11 which is baseline for the patient. EKG abnormal however unchanged from previous. 1. Chest pain/nonischemic cardiomyopathy/elevated troponin Elevated troponin likely secondary to nonischemic cardiomyopathy and chronic heart failure, trops 0.11, 0.09, 0.10. Patient was evaluated by cardiology on 02/18/17 who recommended medical management 3 months and possible ICD placement Cardiology consulted for further evaluation, evaluated by Dr. Rondon, appreciate recommendations - noninvasive workup with coronary CT which showed normal coronaries. Recommended AICD but pt wants to talk to family first Continue home medications of ramipril and Coreg Last echo (12/16/16) with EF of 20-25 percent Nitroglycerin/morphine for chest pain 2. History of chronic systolic CHF BNP 2637, does not appear decompensated Continue Imdur and Coreg Lasix 40mg IV given - monitor electrolytes begin Torsemide 10mg BID strict I&Os heart healthy fluid/salt restricted diet 3. Prior history of substance abuse Most recent drug screens have been negative Patient denies recent cocaine use, endorses daily alcohol use Advised on continued abstinence UDS positive for opiates only 4. History of COPD Duo nebs when necessary Chest x-ray with shows persistent patchy airspace opacity, possibly consolidation in right lower lung field, patient denies respiratory symptoms. No leukocytosis monitor respiratory status IS at bedside, encourage use 5. History of DVT Per chart review, patient had a DVT in 2015 Patient also reports that he had "clots in his lungs" Continue Xarelto 6. Hypomagnesemia s/p IV repletion am labs to monitor response 7. Hyperglycemia with recent steroid use. A1c 5.8. Monitor fingerstick sliding scale coverage DVT prophylaxis Patient is on Xarelto Patient signed out AGAINST MEDICAL ADVICE. He has been made aware the need for AICD. He will follow-up with PCP and cardiology Pt Condition on Discharge: Guarded Discharge Disposition: Discharge Home (ama) Discharge Time: > 30 minutes Discharge Instructions DIET: Follow Instructions for: Heart Healthy Diet Activities you can perform: Regular-No Restrictions Activities to Avoid: Driving Connor Broussard MD Aug 14, 2017 17:16
== END 2017-08-14 10:40 | disposition left against medical advice (07) ==
LOC: NEPC 18:14 → NEDA 22:51 → NEDH 08-12 03:34 → NEPHCDU 08-12 11:30
PROVIDERS: ADMIT Internal Medicine; ATTEND Internal Medicine
DX: R07.89 Other chest pain (principal); I42.9 Cardiomyopathy, unspecified; I44.4 Left anterior fascicular block; I45.10 Unspecified right bundle-branch block; E83.42 Hypomagnesemia; R73.9 Hyperglycemia, unspecified; R06.00 Dyspnea, unspecified; R19.7 Diarrhea, unspecified; R10.11 Right upper quadrant pain; I11.0 Hypertensive heart disease with heart failure; I50.22 Chronic systolic (congestive) heart failure; I25.2 Old myocardial infarction; J44.9 Chronic obstructive pulmonary disease, unspecified; K21.9 Gastro-esophageal reflux disease without esophagitis; K74.60 Unspecified cirrhosis of liver; H91.93 Unspecified hearing loss, bilateral; F41.9 Anxiety disorder, unspecified; F32.9 Major depressive disorder, single episode, unspecified; Z87.891 Personal history of nicotine dependence; Z79.899 Other long term (current) drug therapy; Z79.01 Long term (current) use of anticoagulants; Z86.718 Personal history of other venous thrombosis and embolism; Z23 Encounter for immunization
CPT/HCPCS: 71010; 75574; 80048; 80053; 80307; 82550; 82552; 82948; 83036; 83690; 83735; 83880; 84443; 84484; 85025; 85379; 85610; 85730; 90686; 93005; 94150; 96365; 96366; 96372; 96375; 99285; G0378; J1815; J2270; J3475; J7512; Q0163; Q9967; Q2038

== ENCOUNTER 2017-10-01 01:54 | Emergency (ER) | payer OTHER ==
[~2017-10-01] VITALS: Ht 175.3 cm; Wt 55.0 kg
[~2017-10-01 01:54] MED LIST changes: -CEPH-460 PO; -CIPR-9 PO
[2017-10-01 01:57] VITALS: BP 111/79; PULSE 88; RESP 16; TEMP 98.4; O2SAT 97
--- NOTE | 2017-10-01 03:20 | PD ---
HPI Chief Complaint: GI Complaint Time Seen by Provider: 02:04 Travel History International Travel<30 days: No Contact w/Intl Traveler<30days: No History of Present Illness HPI Patient is coming in complaining of abdominal pain but when I enter the room he says is complaining of bilateral leg swelling. He says he is on anticoagulation and he thinks his legs are swelling. pt has multiple vague complaints and is in no distress, my initial impression is he is needing a bed to sleep. He is a poor historian. He has been seen multiple times for chest pain and has been seen by cardiology multiple times for his nonischemic cardiomyopathy. He had a cardiac catheterization in 2014 that showed patent coronary arteries with moderate to severe left ventricular systolic dysfunction. But he is not complaining for CP tonight PFSH Past Medical History Hx Anticoagulant Therapy: Yes Blood Disorders: No Anxiety: Yes Depression: Yes Heart Rhythm Problems: Yes Cancer: No Cardiac Catheterization: Yes (Heart md-Charlie Damico DO) Cardiomyopathy: Yes Cardiovascular Problems: Yes ([place] 2014) High Cholesterol: No Chemotherapy: No Chest Pain: Yes Congestive Heart Failure: No Cirrhosis: Yes Cerebrovascular Accident: No Diabetes: No Diminished Hearing: Yes ([place]ILATERAL - [place]) Deep Vein Thrombosis: Yes (roberto le leg/xarelto) Endocrine: No Gastrointestinal Disorders: Yes (Reflux, Ulcers) GERD: Yes Glaucoma: No Genitourinary: No Hepatitis: No Hiatal Hernia: No Heparin Induced Thrombocytopen: No Hypertension: Yes Immune Disorder: No Implanted Vascular Access Dvce: No Musculoskeletal: Yes Neurologic: No Psychiatric: Yes Reproductive: No Respiratory: No Immunizations Current: No Myocardial Infarction: Yes Pneumonia: Yes Radiation Therapy: No Sickle Cell Disease: No Ulcer: Yes Past Surgical History Abdominal Surgery: Yes (EXPLORATORY LAP) AICD: No Appendectomy: No Arteriovenous Shunt: No Body Medical Devices: pacemaker Cholecystectomy: No Coronary Artery Bypass Graft: No Ear Surgery: No Endocrine Surgery: No Eye Surgery: No Gynecologic Surgery: No Hysterectomy: No Insulin Pump: No Joint Replacement: No Oral Surgery: Yes (TEETH EXTRACTIONS) Pacemaker: No Other Surgery: No Family History Family Myocardial Infarction: Yes (MOTHER/GRANDMOTHER) Social History Alcohol Use: Yes (couple beers per day) Tobacco Use: Yes (1 cig/day ) Substance Use: No Allergies-Medications (Allergen,Severity, Reaction): Coded Allergies: Fish Containing Products (Verified Allergy, Severe, itching, 10/01/17) iodine (Verified Allergy, Severe, itching, 10/01/17) potassium iodide (Verified Allergy, Severe, itching, 10/01/17) povidone-iodine (Verified Allergy, Severe, itching, 10/01/17) sodium iodide (Verified Allergy, Severe, itching, 10/01/17) sodium iodide (Verified Allergy, Severe, itching, 10/01/17) Reported Meds & Prescriptions Reported Meds & Active Scripts Active Furosemide 40 Mg Tab 40 Mg PO BID Reported Ramipril 5 Mg Cap 5 Mg PO DAILY Carvedilol 12.5 Mg Tab 12.5 Mg PO BID Omeprazole 20 Mg Tab 20 Mg PO DAILY Klor-Con M20 (Potassium Chloride Microencaps) 20 Meq Tab 20 Meq PO DAILY Xarelto (Rivaroxaban) 20 Mg Tab 20 Mg PO DAILY Isosorbide Mononitrate ER (Isosorbide Mononitrate) 30 Mg Tahir 30 Mg PO DAILY Digoxin 0.25 Mg Tab 0.25 Mg PO DAILY Mirtazapine ODT (Mirtazapine) 30 Mg Tab 30 Mg PO HS Quetiapine (Quetiapine Fumarate) 25 Mg Tab 25 Mg PO HS Review of Systems Except as stated in HPI: all other systems reviewed are Neg Gastrointestinal: Positive: Abdominal Pain Musculoskeletal: Positive: Myalgias, Edema Neurologic: Positive: Weakness Physical Exam Narrative GENERAL: unkempt and wearing too different shoes SKIN: Warm and dry. HEAD: Atraumatic. Normocephalic. EYES: Pupils equal and round. No scleral icterus. No injection or drainage. ENT: No nasal bleeding or discharge. Mucous membranes pink and moist. NECK: Trachea midline. No JVD. CARDIOVASCULAR: Regular rate and rhythm. RESPIRATORY: No accessory muscle use. Clear to auscultation. Breath sounds equal bilaterally. GASTROINTESTINAL: Abdomen soft, non-tender, nondistended. Hepatic and splenic margins not palpable. MUSCULOSKELETAL: Extremities calfs are non tender and no swelling of significance to the lower extremities , without clubbing, cyanosis, or edema. No obvious deformities. NEUROLOGICAL: Awake and alert. No obvious cranial nerve deficits. Motor grossly within normal limits. Five out of 5 muscle strength in the arms and legs. Normal speech. PSYCHIATRIC: Appropriate mood and affect; insight and judgment normal. Data Data Last Documented VS Orders Orders Ed Discharge Order (10/01/17 06:17) Ed Discharge Order (10/01/17 06:17) MDM Medical Decision Making Medical Screen Exam Complete: Yes Emergency Medical Condition: Yes Differential Diagnosis PVD vs fluid overload vs malingering. vs GERD vs Sissy vascular edema Narrative Course pt is examined then observed on merchandise displayer overnight and d/c in AM follow up out pt, no emergency issue arose during his observation period. Diagnosis Primary Impression: Foot pain, bilateral Patient Instructions: General Instructions, Leg Edema (ED) Disposition: 01 DISCHARGE HOME Condition: Good Matti Justin MD Oct 01, 2017 03:20
[2017-10-01 05:54] VITALS: BP 117/80; PULSE 93; RESP 18; O2SAT 99
== END 2017-10-01 06:41 | disposition home or self-care (01) ==
LOC: NEPC 01:54
DX: M79.671 Pain in right foot (principal); M79.672 Pain in left foot; R10.9 Unspecified abdominal pain; F17.210 Nicotine dependence, cigarettes, uncomplicated; Z79.01 Long term (current) use of anticoagulants
CPT/HCPCS: 99284

== ENCOUNTER 2017-10-09 13:44 | Emergency (ER) | payer OTHER ==
[2017-10-09 13:57] VITALS: BP 118/78; PULSE 90; RESP 18; TEMP 97.9; O2SAT 98
--- NOTE | 2017-10-09 16:10 | PD ---
HPI Chief Complaint: General Weakness Time Seen by Provider: 15:52 Travel History International Travel<30 days: No Contact w/Intl Traveler<30days: No Traveled to known affect area: No History of Present Illness HPI 42-year-old male presents emergency department via EMS with complaint of body aches since yesterday. Says "my legs, my arms, my back, my stomach, my chest hurt; my whole body hurts". He denies fevers, vomiting. Denies nasal congestion, sore throat, cough. Has not taken any medications or treatments to alleviate his symptoms. Symptoms are mild in severity. No known relieving or aggravating factors. Hasn't taken any medication or tried any treatments to alleviate his symptoms. Extensive medical history. Says he takes blood thinners and doesn't know which one. Hasn't established primary care provider. 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 Has no other medical complaints. No other modifying factors or associated signs and symptoms. PFSH Past Medical History Hx Anticoagulant Therapy: Yes Blood Disorders: No Anxiety: Yes Depression: Yes Heart Rhythm Problems: Yes Cancer: No Cardiac Catheterization: Yes (Heart md-Charlie Damico DO) Cardiomyopathy: Yes Cardiovascular Problems: Yes ([place] 2014) High Cholesterol: No Chemotherapy: No Chest Pain: Yes Congestive Heart Failure: No Cirrhosis: Yes Cerebrovascular Accident: No Diabetes: No Diminished Hearing: Yes ([place] - [place]) Deep Vein Thrombosis: Yes (roberto le leg/xarelto) Endocrine: No Gastrointestinal Disorders: Yes (Reflux, Ulcers) GERD: Yes Glaucoma: No Genitourinary: No Hepatitis: No Hiatal Hernia: No Heparin Induced Thrombocytopen: No Hypertension: Yes Immune Disorder: No Implanted Vascular Access Dvce: No Musculoskeletal: Yes Neurologic: No Psychiatric: Yes Reproductive: No Respiratory: No Immunizations Current: No Myocardial Infarction: Yes Pneumonia: Yes Radiation Therapy: No Sickle Cell Disease: No Ulcer: Yes Past Surgical History Abdominal Surgery: Yes (EXPLORATORY LAP) AICD: No Appendectomy: No Arteriovenous Shunt: No Body Medical Devices: pacemaker Cholecystectomy: No Coronary Artery Bypass Graft: No Ear Surgery: No Endocrine Surgery: No Eye Surgery: No Gynecologic Surgery: No Hysterectomy: No Insulin Pump: No Joint Replacement: No Oral Surgery: Yes (TEETH EXTRACTIONS) Pacemaker: No Other Surgery: No Family History Family Myocardial Infarction: Yes (MOTHER/GRANDMOTHER) Social History Alcohol Use: Yes (couple beers per day) Tobacco Use: No Substance Use: No Allergies-Medications (Allergen,Severity, Reaction): Coded Allergies: Fish Containing Products (Verified Allergy, Severe, itching, 10/09/17) iodine (Verified Allergy, Severe, itching, 10/09/17) potassium iodide (Verified Allergy, Severe, itching, 10/09/17) povidone-iodine (Verified Allergy, Severe, itching, 10/09/17) sodium iodide (Verified Allergy, Severe, itching, 10/09/17) Reported Meds & Prescriptions Reported Meds & Active Scripts Active Furosemide 40 Mg Tab 40 Mg PO BID Reported Ramipril 5 Mg Cap 5 Mg PO DAILY Carvedilol 12.5 Mg Tab 12.5 Mg PO BID Omeprazole 20 Mg Tab 20 Mg PO DAILY Klor-Con M20 (Potassium Chloride Microencaps) 20 Meq Tab 20 Meq PO DAILY Xarelto (Rivaroxaban) 20 Mg Tab 20 Mg PO DAILY Isosorbide Mononitrate ER (Isosorbide Mononitrate) 30 Mg Tahir 30 Mg PO DAILY Digoxin 0.25 Mg Tab 0.25 Mg PO DAILY Mirtazapine ODT (Mirtazapine) 30 Mg Tab 30 Mg PO HS Quetiapine (Quetiapine Fumarate) 25 Mg Tab 25 Mg PO HS Review of Systems Except as stated in HPI: all other systems reviewed are Neg Physical Exam Narrative GENERAL: Well-nourished, well-developed black male patient, in no acute distress SKIN: Warm and dry. HEAD: Atraumatic. Normocephalic. EYES: Pupils equal and round. No scleral icterus. No injection or drainage. ENT: Mucosa pink and moist. Airway patent. NECK: Trachea midline. CARDIOVASCULAR: Regular rate and rhythm. No murmur appreciated. RESPIRATORY: No accessory muscle use. Clear to auscultation. Breath sounds equal bilaterally. GASTROINTESTINAL: Abdomen soft, non-tender, nondistended. Hepatic and splenic margins not palpable. Bowel sounds are active 4 quadrants. MUSCULOSKELETAL: No obvious deformities. No clubbing. No cyanosis. No edema. NEUROLOGICAL: Awake and alert. Oriented 3. No obvious cranial nerve deficits. Motor grossly within normal limits. Normal speech. PSYCHIATRIC: Appropriate mood and affect; insight and judgment normal. Data Data Last Documented VS Vital Signs Date Time Temp Pulse Resp B/P (MAP) Pulse Ox O2 Delivery O2 Flow Rate FiO2 10/09/17 16:39 88 18 118/86 (97) 100 Room Air 10/09/17 13:57 97.9 Orders Orders Influenzae A/B Antigen (10/09/17 16:32) Acetaminophen (Tylenol) (10/09/17 16:45) Urinalysis - C+S If Indicated (10/09/17 16:32) Labs Laboratory Tests Test 10/09/17 18:20 Urine Color YELLOW Urine Turbidity CLEAR Urine pH 5.5 Urine Specific [place] 1.033 Urine Protein 100 mg/dL Urine Glucose (UA) NEG mg/dL Urine Ketones TRACE mg/dL Urine Occult Blood SMALL Urine Nitrite NEG Urine Bilirubin NEG Urine Urobilinogen 4.0 MG/DL Urine Leukocyte Esterase NEG Urine WBC 1 /hpf Urine Squamous Epithelial Cells 1 /hpf Urine Hyaline Casts 4 /lpf Urine Mucus FEW /lpf Microscopic Urinalysis Comment CULT NOT INDICATED MDM Medical Decision Making Medical Screen Exam Complete: Yes Emergency Medical Condition: Yes Medical Record Reviewed: Yes Differential Diagnosis Myalgias, influenza, UTI Narrative Course 42-year-old male presents with body aches since yesterday. He has no other medical complaints. He is afebrile and nontoxic-appearing. I discussed the patient with Dr. Wu, my attending physician, and he recommended UA, influenza. Orders entered and Tylenol ordered also. 1847: Influenza negative. 1900: Urinalysis without signs of infection. Instructed patient to take Tylenol instructed as needed for pain. Instructed patient to follow up with primary care provider. Patient verbalizes understanding and agreement with treatment plan. Patient is medically cleared and stable for discharge. Discussed reasons to return to the emergency department. Patient agrees with treatment plan. The patients vital signs are stable and the patient is stable for outpatient follow-up and treatment. Patient discharged home, stable and in no acute distress. Diagnosis Primary Impression: Body aches Referrals: [facility] Credit Risk Officer Primary Care Physician Patient Instructions: General Instructions Additional Instructions: Tylenol as directed and as needed for pain Follow up with primary care provider Med/Other Pt SpecificInfo: No Change to Meds, No Meds Exist/No RX given Disposition: DISCHARGE HOME Condition: Stable Kathy Mcqueen Oct 09, 2017 16:10
[2017-10-09 16:39] VITALS: BP 118/86; PULSE 88; RESP 18; O2SAT 100
[2017-10-09] MEDS ORDERED: ACETAMINOPHEN 325 MG TAB PO ONE (16:45)
[2017-10-09 18:57] LABS: BLOOD, URINE SMALL (NEG); GLUCOSE,URINE NEG (NEG); HYALINE CAST, URINE 4 /lpf (RARE); KETONE, URINE TRACE mg/dL (NEG); MUCUS URINE FEW /lpf (OCC); NITRITE,URINE NEG (NEG); PH, URINE 5.5 (5.0-8.5); SQUAMOUS EPITHELIAL CELL URINE 1 /hpf (0-5); URINE COLOR YELLOW (YELLW/STRAW); URINE LEUKOCYTE ESTERASE NEG (NEG)
[2017-10-09 18:59] LABS: BILIRUBIN, URINE NEG (NEG)
[2017-10-09 19:08] VITALS: PULSE 93; RESP 18; O2SAT 99
== END 2017-10-09 19:15 | disposition home or self-care (01) ==
LOC: NEPD 13:44
DX: R52 Pain, unspecified (principal); F41.9 Anxiety disorder, unspecified; F32.9 Major depressive disorder, single episode, unspecified; I42.9 Cardiomyopathy, unspecified; K74.60 Unspecified cirrhosis of liver; I10 Essential (primary) hypertension; K21.9 Gastro-esophageal reflux disease without esophagitis; I25.2 Old myocardial infarction; Z86.718 Personal history of other venous thrombosis and embolism
CPT/HCPCS: 81001; 87804; 99283

== ENCOUNTER 2017-10-09 20:39 | Inpatient (IN) | payer OTHER ==
[~2017-10-09] VITALS: Ht 175.3 cm; Wt 44.2 kg
[2017-10-09 20:40] VITALS: BP 140/101; PULSE 78; RESP 16; TEMP 98.7; O2SAT 97
--- NOTE | 2017-10-09 21:35 | PD ---
HPI Chief Complaint: Chest Pain Time Seen by Provider: 21:27 Travel History International Travel<30 days: No Contact w/Intl Traveler<30days: No Traveled to known affect area: No History of Present Illness HPI 42-year-old male with history of nonischemic cardiomyopathy, PE, reportedly on Xarelto, seen in the emergency department a couple hours ago complaining of generalized body aches, discharged 30 minutes ago, returns complaining of chest pain. The patient tells me that he does not believe he was treated properly because he has Medicare/Medicaid and that he would like a more thorough workup for his pain. He tells me his chest pain has been going on for months and describes it as a pain, moderate, constant, no modifying factors. Chart review shows that the patient was last admitted for chest pain with elevated troponin in August 2017 and the last cardiology progress note states that the patient' s pain is unlikely cardiac in nature and he has had clean coronaries in the past with difficult to interpret stress test, and that they were considering AICD placement. No dyspnea. PFSH Past Medical History Hx Anticoagulant Therapy: Yes Blood Disorders: No Anxiety: Yes Depression: Yes Heart Rhythm Problems: Yes Cancer: No Cardiac Catheterization: Yes (Heart md-Charlie Damico DO) Cardiomyopathy: Yes Cardiovascular Problems: Yes ([place] 2014) High Cholesterol: No Chemotherapy: No Chest Pain: Yes Congestive Heart Failure: No Cirrhosis: Yes Cerebrovascular Accident: No Diabetes: No Diminished Hearing: Yes ([place]) Deep Vein Thrombosis: Yes (roberto le leg/xarelto) Endocrine: No Gastrointestinal Disorders: Yes (Reflux, Ulcers) GERD: Yes Glaucoma: No Genitourinary: No Hepatitis: No Hiatal Hernia: No Heparin Induced Thrombocytopen: No Hypertension: Yes Immune Disorder: No Implanted Vascular Access Dvce: No Musculoskeletal: Yes Neurologic: No Psychiatric: Yes Reproductive: No Respiratory: No Immunizations Current: No Myocardial Infarction: Yes Pneumonia: Yes Radiation Therapy: No Sickle Cell Disease: No Ulcer: Yes Past Surgical History Abdominal Surgery: Yes (EXPLORATORY LAP) AICD: No Appendectomy: No Arteriovenous Shunt: No Body Medical Devices: pacemaker Cholecystectomy: No Coronary Artery Bypass Graft: No Ear Surgery: No Endocrine Surgery: No Eye Surgery: No Gynecologic Surgery: No Hysterectomy: No Insulin Pump: No Joint Replacement: No Oral Surgery: Yes (TEETH EXTRACTIONS) Pacemaker: No Other Surgery: No Family History Family Myocardial Infarction: Yes (MOTHER/GRANDMOTHER) Social History Alcohol Use: Yes (couple beers per day) Tobacco Use: No Substance Use: No (pt denies) Allergies-Medications (Allergen,Severity, Reaction): Coded Allergies: Fish Containing Products (Verified Allergy, Severe, itching, 10/09/17) iodine (Verified Allergy, Severe, itching, 10/09/17) potassium iodide (Verified Allergy, Severe, itching, 10/09/17) povidone-iodine (Verified Allergy, Severe, itching, 10/09/17) sodium iodide (Verified Allergy, Severe, itching, 10/09/17) Reported Meds & Prescriptions Reported Meds & Active Scripts Active Furosemide 40 Mg Tab 40 Mg PO BID Reported Ramipril 5 Mg Cap 5 Mg PO DAILY Carvedilol 12.5 Mg Tab 12.5 Mg PO BID Omeprazole 20 Mg Tab 20 Mg PO DAILY Klor-Con M20 (Potassium Chloride Microencaps) 20 Meq Tab 20 Meq PO DAILY Xarelto (Rivaroxaban) 20 Mg Tab 20 Mg PO DAILY Isosorbide Mononitrate ER (Isosorbide Mononitrate) 30 Mg Tahir 30 Mg PO DAILY Digoxin 0.25 Mg Tab 0.25 Mg PO DAILY Mirtazapine ODT (Mirtazapine) 30 Mg Tab 30 Mg PO HS Quetiapine (Quetiapine Fumarate) 25 Mg Tab 25 Mg PO HS Review of Systems Except as stated in HPI: all other systems reviewed are Neg Physical Exam Narrative GENERAL: Well-developed, thin, comfortable, no apparent distress. SKIN: Focused skin assessment warm/dry. HEAD: Atraumatic. Normocephalic. EYES: Pupils equal and round. No scleral icterus. No injection or drainage. ENT: Mucous membranes pink and moist. NECK: Trachea midline. No JVD. CARDIOVASCULAR: Regular rate and rhythm. RESPIRATORY: No accessory muscle use. Clear to auscultation. Breath sounds equal bilaterally. GASTROINTESTINAL: Abdomen soft, non-tender, nondistended. MUSCULOSKELETAL: No obvious deformities. No clubbing. No cyanosis. No edema. NEUROLOGICAL: Awake and alert. No obvious cranial nerve deficits. Motor grossly within normal limits. Normal speech. PSYCHIATRIC: Appropriate mood and affect; insight and judgment normal. Data Data Last Documented VS Vital Signs Date Time Temp Pulse Resp B/P (MAP) Pulse Ox O2 Delivery O2 Flow Rate FiO2 1/4/18 21:37 18 100 Room Air 10/09/17 20:40 98.7 78 Orders Orders Electrocardiogram (10/09/17 21:32) B-Type Natriuretic Peptide (10/09/17 21:32) Ckmb (Isoenzyme) Profile (10/09/17 21:32) Complete Blood Count With Diff (10/09/17 21:32) Comprehensive Metabolic Panel (10/09/17 21:32) Prothrombin Time / Inr (Pt) (10/09/17 21:32) Act Partial Throm Time (Ptt) (10/09/17 21:32) Troponin I (10/09/17 21:32) Chest, Single Ap (10/09/17 21:32) Ecg Monitoring (10/09/17 21:32) Iv Access Insert/Monitor (10/09/17 21:32) Oximetry (10/09/17 21:32) Aspirin Chew (Aspirin Chew) (10/09/17 21:45) Sodium Chloride 0.9% Flush (Ns Flush) (10/09/17 21:45) CKMB (10/09/17 21:41) CKMB% (10/09/17 21:41) Acetaminophen (Tylenol) (10/09/17 23:30) Admit Order (Ed Use Only) (10/09/17 23:25) Labs Laboratory Tests Test 10/09/17 21:41 White Blood Count 8.8 TH/MM3 Red Blood Count 5.85 MIL/MM3 Hemoglobin 17.4 GM/DL Hematocrit 53.3 % Mean Corpuscular Volume 91.2 FL Mean Corpuscular Hemoglobin 29.8 PG Mean Corpuscular Hemoglobin Concent 32.7 % Red Cell Distribution Width 15.3 % Platelet Count 192 TH/MM3 Mean Platelet Volume 10.3 FL Neutrophils (%) (Auto) 56.5 % Lymphocytes (%) (Auto) 34.6 % Monocytes (%) (Auto) 7.6 % Eosinophils (%) (Auto) 0.8 % Basophils (%) (Auto) 0.5 % Neutrophils # (Auto) 5.0 TH/MM3 Lymphocytes # (Auto) 3.1 TH/MM3 Monocytes # (Auto) 0.7 TH/MM3 Eosinophils # (Auto) 0.1 TH/MM3 Basophils # (Auto) 0.0 TH/MM3 CBC Comment AUTO DIFF Differential Comment AUTO DIFF CONFIRMED Platelet Estimate NORMAL Platelet Morphology Comment NORMAL Prothrombin Time 13.0 SEC Prothromb Time International Ratio 1.3 RATIO Activated Partial Thromboplast Time 24.2 SEC Blood Urea Nitrogen 25 MG/DL Creatinine 1.37 MG/DL Random Glucose 85 MG/DL Total Protein 7.1 GM/DL Albumin 3.5 GM/DL Calcium Level 8.9 MG/DL Alkaline Phosphatase 76 U/L Aspartate Amino Transf (AST/SGOT) 183 U/L Alanine Aminotransferase (ALT/SGPT) 84 U/L Total Bilirubin 3.1 MG/DL Sodium Level 138 MEQ/L Potassium Level 4.6 MEQ/L Chloride Level 109 MEQ/L Carbon Dioxide Level 16.0 MEQ/L Anion Gap 13 MEQ/L Estimat Glomerular Filtration Rate 69 ML/MIN Total Creatine Kinase 483 U/L Creatine Kinase MB 24.7 NG/ML Creatine Kinase MB % 5.1 % Troponin I 0.11 NG/ML B-Type Natriuretic Peptide 2925 PG/ML MDM Medical Decision Making Medical Screen Exam Complete: Yes Emergency Medical Condition: Yes Interpretation(s) EKG: Sinus, rate 90, leftward axis, incomplete RBBB, LAFB, lateral T-wave inversions and ST depressions, unchanged from prior. Differential Diagnosis ACS, pneumothorax, pneumonia, pericarditis, PE, influenza, viral illness, CHF, nonischemic cardiomyopathy, malingering Narrative Course Initial vital signs show heart rate 78, blood pressure 140/101, pulse ox 97% on room air, oral temp of 98.7F. CBC: WBC 8.8, hemoglobin 17.4, hematocrit 53.3, platelets 192. CMP is remarkable for bicarbonate 16 with a normal anion gap of 13, BUN 25, creatinine 1.37, GFR 69, AST 183, ALT 84, Total CK is 43, CK-MB is 24.7, CK-MB percent is 5.1%. Troponin is 0.11. BNP is 2925. Chest x-ray: Mild basilar streaky infiltrates. Patient was made aware of all findings. On reassessment he is sleeping comfortably. He is asking for something for his back pain. He usually has a slight elevation in troponin, however today his CK-MB percent is slightly elevated. His BNP is also almost 3000. He has a very abnormal EKG, however this appears unchanged from prior. The last cardiology progress note was in September of last year and at that time they were considering AICD placement. The patient happened to leave the hospital AMA at that time stating that he was scared to have this procedure done. He'll be admitted for further chest pain workup. Case discussed with hospitalist Dr. Huerta who will admit the patient to her service. Diagnosis Primary Impression: Chest pain Qualified Codes: R07.9 - Chest pain, unspecified Additional Impressions: Abnormal EKG Elevated troponin Admitting Information Admitting Physician Requests: Observation Alejo Anderson MD Oct 09, 2017 21:35
[2017-10-09 21:37] VITALS: RESP 18; O2SAT 100
[2017-10-09] MEDS ORDERED: SODIUM CHLORIDE 0.9% FLUSH 10 ML FLUSH IVF PRN (21:45)
[2017-10-09] MEDS ORDERED: ASPIRIN 81 MG CHEW TAB PO ONE (21:45)
--- NOTE | 2017-10-09 22:11 | RADRPT ---
EXAM DATE/TIME: 10/09/2017 22:00 [facility] COMPARISON: No previous studies available for comparison. INDICATIONS : Chest pain. MEDICAL HISTORY : Myocardial infarction. Congestive heart failure. Cirrhosis. SURGICAL HISTORY : Exploratory laproscopy. Oral surgery, teeth extraction. Cardiac cath. ENCOUNTER: Initial ACUITY: 1 day PAIN SCORE: 5/10 LOCATION: Bilateral chest FINDINGS: Hyperinflation and cardiomegaly stable. Minimal streaky airspace disease at the bases. No effusions. Osseous structures are intact. CONCLUSION: Mild basilar streaky infiltrates. Ti Veronica MD on October 09, 2017 at 22:09 Board Certified Radiologist. This report was verified electronically.
[2017-10-09 22:22] LABS: BASOPHIL % 0.5 % (0.0-2.0); EOSINOPHIL # 0.1 TH/MM3 (0-0.4); EOSINOPHIL % 0.8 % (0.0-4.0); HEMATOCRIT 53.3 % (39.0-51.0); HEMOGLOBIN 17.4 GM/DL (13.0-17.0); LYMPH % 34.6 % (9.0-44.0); LYMPHOCYTE # 3.1 TH/MM3 (1.0-4.8); MEAN CELL VOLUME 91.2 FL (80.0-100.0); MEAN CORPUSCULAR HEMOGLOBIN 29.8 PG (27.0-34.0); MEAN CORPUSCULAR HGB CONC 32.7 % (32.0-36.0); MEAN PLATELET VOLUME 10.3 FL (7.0-11.0); MONO % 7.6 % (0.0-8.0); MONOCYTE # 0.7 TH/MM3 (0-0.9); NEUT % 56.5 % (16.0-70.0); PLATELET COUNT 192 TH/MM3 (150-450); RED BLOOD COUNT 5.85 MIL/MM3 (4.50-5.90); RED CELL DISTRIBUTION WIDTH 15.3 % (11.6-17.2); WHITE BLOOD COUNT 8.8 TH/MM3 (4.0-11.0)
[2017-10-09 22:29] LABS: ALBUMIN 3.5 GM/DL (3.4-5.0); AST (GOT) 183 U/L (15-37); BLOOD UREA NITROGEN 25 MG/DL (7-18); CALCIUM 8.9 MG/DL (8.5-10.1); CHLORIDE 109 MEQ/L (98-107); CREATININE 1.37 MG/DL (0.60-1.30); GLOMERULAR FILTRATION RATE 69 ML/MIN (>89); GLUCOSE,RANDOM 85 MG/DL (74-106); SODIUM (NA) 138 MEQ/L (136-145)
[2017-10-09 22:34] LABS: ALKALINE PHOSPHATASE 76 U/L (45-117); ALT (GPT) 84 U/L (12-78); TOTAL BILIRUBIN ADULT 3.1 MG/DL (0.2-1.0); TOTAL PROTEIN 7.1 GM/DL (6.4-8.2); TROPONIN I 0.11 NG/ML (0.02-0.05)
[2017-10-09 22:59] LABS: INTERNATIONAL NORMALIZED RATIO 1.3 RATIO
[2017-10-09] MEDS ORDERED: SODIUM CHLORIDE 0.9% FLUSH 10 ML FLUSH IV FLUSH PRN (23:30)
[2017-10-09] MEDS ORDERED: ACETAMINOPHEN 325 MG TAB PO ONE (23:30)
[2017-10-10] VITALS (22 sets, daily range): BP systolic 101–123; BP diastolic 68–97; PULSE 66–87; RESP 16–24; TEMP 96.1–98.5; O2SAT 96–100
[2017-10-10 06:56] LABS: AUTOMATED NEUTROPHIL # 4.7 TH/MM3 (1.8-7.7); BASOPHIL % 0.5 % (0.0-2.0); EOSINOPHIL % 0.6 % (0.0-4.0); HEMATOCRIT 43.3 % (39.0-51.0); HEMOGLOBIN 14.3 GM/DL (13.0-17.0); LYMPH % 30.9 % (9.0-44.0); LYMPHOCYTE # 2.4 TH/MM3 (1.0-4.8); MEAN CELL VOLUME 90.3 FL (80.0-100.0); MEAN CORPUSCULAR HEMOGLOBIN 29.8 PG (27.0-34.0); MEAN PLATELET VOLUME 10.9 FL (7.0-11.0); MONOCYTE # 0.6 TH/MM3 (0-0.9); PLATELET COUNT 186 TH/MM3 (150-450); RED CELL DISTRIBUTION WIDTH 14.9 % (11.6-17.2); WHITE BLOOD COUNT 7.8 TH/MM3 (4.0-11.0)
[2017-10-10 07:21] LABS: BICARBONATE 18.3 MEQ/L (21.0-32.0); CALCIUM 8.8 MG/DL (8.5-10.1); CREATININE 1.26 MG/DL (0.60-1.30)
[2017-10-10 07:24] LABS: TROPONIN I 0.13 NG/ML (0.02-0.05)
[2017-10-10] MEDS ORDERED: FUROSEMIDE 40 MG TAB PO SCH (09:00)
[2017-10-10] MEDS: ISOSORBIDE MONONITRATE 30 MG TAB PO SCH (09:23)
[2017-10-10] MEDS: RIVAROXABAN 20 MG TAB PO SCH (09:23)
[2017-10-10] MEDS: PANTOPRAZOLE SOD 20 MG DELAYED RELEASE TAB PO SCH (09:23)
[2017-10-10] MEDS: RAMIPRIL 5 MG CAP PO SCH (09:24)
[2017-10-10] MEDS: CARVEDILOL 12.5 MG TAB PO SCH ×2 (09:24→21:37)
[2017-10-10] MEDS: DIGOXIN 0.25 MG TAB PO SCH (09:24)
[2017-10-10] MEDS: SODIUM CHLORIDE 0.9% FLUSH 10 ML FLUSH IV FLUSH SCH ×2 (09:25→21:38)
[2017-10-10] MEDS: INFLUENZA VIRUS VACCINE (QUADRIVALENT) 0.5 ML SYR IM ONE ×2 (09:27→09:38)
--- NOTE | 2017-10-10 10:49 | HHI.HP ---
[facility] Unknown Admission Diagnosis chest pain, abnormal EKG, elevated troponin Diagnoses: Travel History International Travel<30 Days: No Contact w/Intl Traveler <30 Da: No Traveled to Known Affected Are: No History of Present Illness 42-year-old AA male with a past medical history significant for nonischemic cardiomyopathy (echo 12/16/16 with an EF of 20-25%), hypertension, alcohol abuse , tobacco abuse presented to the emergency department with complaints of intermittent severe 7/10 stabbing and crushing substernal chest pain that radiated to the right and left chest. Patient states that he thought he had the flu and pneumonia and had body aches however his chest pain was what brought him in again. Apparently he came in earlier was seen by nurse practitioner was given what he thought were "2 Tylenols "and was sent home. Patient was not happy with his care and returned complaining of chest pains. He states in having chest pain on and off mainly in the mid chest with radiation to the right and left. He denies any radiation to his neck or his arms. He states that about a month ago he was supposed to get a "stent" and his heart however he never did. He would like to be evaluated for this. He quit smoking about 2 months ago. Admits to smoking 4-5 cigarettes a day for the past 3-4 years. He's been drinking since the age of 18. Admits to 3-4 beers daily and a pint of liquor on and off. patient had a cardiac catheterization in 2014 that showed patent coronary arteries with moderate to severe left ventricular systolic dysfunction. Patient admits to dry cough, admits to being exposed to his sister with flulike symptoms. No fevers or chills. Denies any weight gain. Review of Systems Except as stated in HPI: all other systems reviewed are Neg Past Family Social History Past Medical History Nonischemic cardiomyopathy, CHF with an EF of 20-25%, PE, anxiety, depression, alcohol abuse, per record use of cocaine in the past Past Surgical History Cardiac catheterization in 2014 Reported Medications Reported Meds & Active Scripts Active Furosemide 40 Mg Tab 40 Mg PO BID Reported Ramipril 5 Mg Cap 5 Mg PO DAILY Carvedilol 12.5 Mg Tab 12.5 Mg PO BID Omeprazole 20 Mg Tab 20 Mg PO DAILY Klor-Con M20 (Potassium Chloride Microencaps) 20 Meq Tab 20 Meq PO DAILY Xarelto (Rivaroxaban) 20 Mg Tab 20 Mg PO DAILY Isosorbide Mononitrate ER (Isosorbide Mononitrate) 30 Mg Tahir 30 Mg PO DAILY Digoxin 0.25 Mg Tab 0.25 Mg PO DAILY Mirtazapine ODT (Mirtazapine) 30 Mg Tab 30 Mg PO HS Quetiapine (Quetiapine Fumarate) 25 Mg Tab 25 Mg PO HS Allergies: Coded Allergies: Fish Containing Products (Verified Allergy, Severe, itching, 10/09/17) iodine (Verified Allergy, Severe, itching, 10/09/17) potassium iodide (Verified Allergy, Severe, itching, 10/09/17) povidone-iodine (Verified Allergy, Severe, itching, 10/09/17) sodium iodide (Verified Allergy, Severe, itching, 10/09/17) Family History Mother had 2 heart attacks, grandmother also had a heart attack. Father from throat cancer Social History Quit smoking about a month ago, used to smoke 3-4 cigarettes a day for 3-4 years. Admits to drinking since the age of 18 drinks about 3-4 beers daily and a pint of liquor on and off Physical Exam Vital Signs Vital Signs Date Time Temp Pulse Resp B/P (MAP) Pulse Ox O2 Delivery O2 Flow Rate FiO2 10/10/17 08:00 97.4 87 20 123/97 (106) 100 10/10/17 06:00 82 10/10/17 05:00 82 10/10/17 04:00 82 10/10/17 04:00 97.4 75 22 120/89 (99) 100 10/10/17 03:00 82 10/10/17 02:00 83 10/10/17 01:30 96.1 82 24 115/92 (100) 100 10/10/17 00:40 10/10/17 00:00 85 20 119/92 (101) 100 Nasal Cannula 2.00 10/09/17 21:37 18 100 Room Air 10/09/17 21:33 100 Room Air 10/09/17 20:40 98.7 78 16 140/101 (114) 97 Room Air Physical Exam GENERAL: This is a pleasant male laying in bed. SKIN: No rashes, ecchymoses or lesions. Cool and dry. HEAD: Atraumatic. Normocephalic. No temporal or scalp tenderness. EYES: Pupils equal round and reactive. Extraocular motions intact. No scleral icterus. No injection or drainage. ENT: Nose without drainage. Airway patent. NECK: Trachea midline. CARDIOVASCULAR: Regular rate and rhythm without murmurs RESPIRATORY: Lungs appear clear with no wheezing. GASTROINTESTINAL: Abdomen soft, non-tender, nondistended. No guarding. MUSCULOSKELETAL: Extremities without edema. NEUROLOGICAL: Awake and alert.Motor and sensory grossly within normal limits. Normal speech. Laboratory Laboratory Tests Test 10/09/17 21:41 10/10/17 04:53 White Blood Count 8.8 7.8 Red Blood Count 5.85 4.80 Hemoglobin 17.4 14.3 Hematocrit 53.3 43.3 Mean Corpuscular Volume 91.2 90.3 Mean Corpuscular Hemoglobin 29.8 29.8 Mean Corpuscular Hemoglobin Concent 32.7 33.0 Red Cell Distribution Width 15.3 14.9 Platelet Count 192 186 Mean Platelet Volume 10.3 10.9 Neutrophils (%) (Auto) 56.5 60.0 Lymphocytes (%) (Auto) 34.6 30.9 Monocytes (%) (Auto) 7.6 8.0 Eosinophils (%) (Auto) 0.8 0.6 Basophils (%) (Auto) 0.5 0.5 Neutrophils # (Auto) 5.0 4.7 Lymphocytes # (Auto) 3.1 2.4 Monocytes # (Auto) 0.7 0.6 Eosinophils # (Auto) 0.1 0.0 Basophils # (Auto) 0.0 0.0 CBC Comment AUTO DIFF DIFF FINAL Differential Comment AUTO DIFF CONFIRMED Platelet Estimate NORMAL Platelet Morphology Comment NORMAL Prothrombin Time 13.0 Prothromb Time International Ratio 1.3 Activated Partial Thromboplast Time 24.2 Blood Urea Nitrogen 25 30 Creatinine 1.37 1.26 Random Glucose 85 70 Total Protein 7.1 Albumin 3.5 Calcium Level 8.9 8.8 Alkaline Phosphatase 76 Aspartate Amino Transf (AST/SGOT) 183 Alanine Aminotransferase (ALT/SGPT) 84 Total Bilirubin 3.1 Sodium Level 138 142 Potassium Level 4.6 5.1 Chloride Level 109 110 Carbon Dioxide Level 16.0 18.3 Anion Gap 13 14 Estimat Glomerular Filtration Rate 69 76 Total Creatine Kinase 483 370 Creatine Kinase MB 24.7 18.6 Creatine Kinase MB % 5.1 5.0 Troponin I 0.11 0.13 B-Type Natriuretic Peptide 2925 Result Diagram: 10/10/17 0453 10/10/17 0453 Imaging Last Impressions Chest X-Ray 10/09/172131 Signed Impressions: Service Date/Time: October 22:00 - CONCLUSION: Mild basilar streaky infiltrates. MD Grey Mcallister VTE Risk Assessment Grey VTE Risk Assessment: Mod/High Risk (score >= 2) Caprini Risk Assessment Model Point Value = 1 Point Value = 2 Point Value = 3 Point Value = 5 Age 41-60 Minor surgery BMI > 25 kg/m2 Swollen legs Varicose veins or History of unexplained or recurrent spontaneous Oral contraceptives or hormone replacement Sepsis (< 1 month) Serious lung disease, including pneumonia (< 1 month) Abnormal pulmonary function Acute myocardial infarction Congestive heart failure (< 1 month) History of inflammatory bowel disease Medical patient at bed rest Age 61-74 Arthroscopic surgery Major open surgery (> 45 min) Laparoscopic surgery (> 45 min) Malignancy Confined to bed (> 72 hours) Immobilizing plaster cast Central venous access Age >= 75 History of VTE Family history of VTE Factor V Leiden Prothrombin [id number] Lupus anticoagulant Anticardiolipin antibodies Elevated serum homocysteine Heparin-induced thrombocytopenia Other congenital or acquired thrombophilia Stroke (< 1 month) Elective arthroplasty Hip, pelvis, or leg fracture Acute spinal cord injury (< 1 month) Prophylaxis Regimen Total Risk Factor Score Risk Level Prophylaxis Regimen 0-1 Low Early ambulation 2 Moderate Order ONE of the following: *Sequential Compression Device (SCD) *Heparin 5000 units SQ BID 3-4 Higher Order ONE of the following medications: *Heparin 5000 units SQ TID *Enoxaparin/Lovenox 40 mg SQ daily (WT < 150 kg, CrCl > 30 mL/min) *Enoxaparin/Lovenox 30 mg SQ daily (WT < 150 kg, CrCl > 10-29 mL/min) *Enoxaparin/Lovenox 30 mg SQ BID (WT < 150 kg, CrCl > 30 mL/min) AND/OR *Sequential Compression Device (SCD) 5 or more Highest Order ONE of the following medications: *Heparin 5000 units SQ TID (Preferred with Epidurals) *Enoxaparin/Lovenox 40 mg SQ daily (WT < 150 kg, CrCl > 30 mL/min) *Enoxaparin/Lovenox 30 mg SQ daily (WT < 150 kg, CrCl > 10-29 mL/min) *Enoxaparin/Lovenox 30 mg SQ BID (WT < 150 kg, CrCl > 30 mL/min) AND *Sequential Compression Device (SCD) Assessment and Plan Assessment and Plan Chest pain: hx of nonischemic cardiomyopathy (echo 12/16/16 with an EF of 20-25%) . Patient states he's been having chest pain on and off for the past 6 to months at least. Yesterday was worse 7 out of 10. Late located mid chest with radiation to the right and left chest. Troponins were found elevated at 0.11--> 0.13. Third troponin pending. Currently patient denies any chest pains. Pt's home meds have been resumed. Morphine/nitro prn chest pains. added ASA 81mg po daily. Pt had a cardiac cath in 2014 which had showed patent coronary. apparently pt was being worked up for AICD placement but he never got it. Dr. Meléndez has been consulted for this. Awaiting his recs acute on chronic CHF: EF 20-25%. BNP 2925. switch to IV lasix, monitor potassium levels. monitor I&O's. Pt currently NPO awaiting recs from cards. once diet resumed, will need fluid restriction and low sodium diet. Hx of PE: on xarelto. Pt already took a dose today. awaiting for cards to determine if procedure is needed. will hold xarelto now. most likely will need to be on a heparin gtt. I did discuss this w pharmacy and recommendation would be hold xarelto now and pt would be anticoagulated until the AM and start heparin gtt in AM if pt not having sx in AM. Awaiting recs from cards. alcoholism: CIWA protocol in place. thiamine/folate/MV. sz and fall precautions. Early PNA: chest x-ray concerning for infiltrates. could be from his CHF but pt also having a cough and body aches in addition to his chest pain. Has been around his sister who had flu like symptoms. Flu yesterday done in ED was neg. cover his w rocephin/azithro x 5 days DVT proph: received dose of xarelto today, hold in case he does need to go for AICD placement. Code Status full code Discussed Condition With patient Jessica Leary MD Oct 10, 2017 10:49
[2017-10-10] MEDS ORDERED: NITROGLYCERIN 2% OINT 1 GM PACKET TOPICAL PRN (11:15)
[2017-10-10] MEDS ORDERED: LORazepam 1 MG TAB PO PRN (11:30)
[2017-10-10] MEDS ORDERED: FLUMAZENIL 0.5 MG/5 ML VIAL IV PUSH PRN (11:30)
[2017-10-10] MEDS ORDERED: LORazepam 2 MG/ML VIAL IV PUSH PRN ×4 (11:30)
[2017-10-10] MEDS ORDERED: LORazepam 2 MG TAB PO PRN (11:30)
[2017-10-10] MEDS ORDERED: HALOPERIDOL LACTATE 5 MG/ML AMP IM PRN (11:30)
[2017-10-10 11:42] LABS: TROPONIN I 0.11 NG/ML (0.02-0.05)
[2017-10-10] MEDS: ASPIRIN EC 81 MG TABEC PO ONE ×2 (12:10→13:22)
[2017-10-10] MEDS: AZITHROMYCIN 250 MG TAB PO ONE ×2 (12:10→13:19)
[2017-10-10] MEDS: cefTRIAXone INJ 1,000 MG in SODIUM CHLORIDE 0.9% INJ 100 ML IV SCH ×2 (12:11→13:22)
[2017-10-10] MEDS: MULTIVITAMINS/MINERALS THERAPEUTIC TAB PO SCH (13:21)
[2017-10-10] MEDS: THIAMINE HCL 100 MG TAB PO SCH (13:21)
[2017-10-10] MEDS: FOLIC ACID 1 MG TAB PO SCH (13:21)
--- NOTE | 2017-10-10 16:24 | ECHRPT ---
Indication: CONCLUSIONS Normal left ventricular size. The left ventricular systolic function is severely reduced with an estimated ejection fraction less than 20%. Mild mitral valve regurgitation. No aortic valve regurgitation. No aortic valve stenosis. There is mild tricuspid valve regurgitation. The estimated pulmonary arterial pressure is 37.7 mmHg. BP: / HR: Rhythm: MEASUREMENTS (Male / Female) Normal Values Technical Quality: 2D ECHO LV Diastolic Diameter PLAX 5.2 cm 4.2 - 5.9 / 3.9 - 5.3 cm LV Systolic Diameter PLAX 4.9 cm IVS Diastolic Thickness 1.2 cm 0.6 - 1.0 / 0.6 - 0.9 cm LVPW Diastolic Thickness 1.0 cm 0.6 - 1.0 / 0.6 - 0.9 cm LV Relative Wall Thickness 0.4 RV Internal Dim ED PLAX 2.6 cm LVOT Diameter 1.8 cm M-MODE Aortic Root Diameter MM 4.2 cm LA Systolic Diameter MM 3.6 cm LA Ao Ratio MM 0.9 AV Cusp Separation MM 1.5 cm DOPPLER LV E' Lateral Velocity 6.3 cm/s LV E' Septal Velocity 8.2 cm/s TR Peak Velocity 263.0 cm/s TR Peak Gradient 27.7 mmHg Right Atrial Pressure 10.0 mmHg Pulmonary Artery Systolic Pressu 37.7 mmHg Right Ventricular Systolic Press 37.7 mmHg FINDINGS LEFT VENTRICLE Normal left ventricular size. The left ventricular systolic function is severely reduced with an estimated ejection fraction less than 20%. RIGHT VENTRICLE Normal right ventricular size and systolic function. LEFT ATRIUM The left atrial size is normal. RIGHT ATRIUM The right atrial size is normal. ATRIAL SEPTUM Normal atrial septal thickness without atrial level shunting by limited color doppler interrogation. AORTA The aortic root and proximal ascending aorta are normal in size on limited imaging. MITRAL VALVE Structurally normal mitral valve. Mild mitral valve regurgitation. AORTIC VALVE Trileaflet aortic valve. No aortic valve regurgitation. No aortic valve stenosis. TRICUSPID VALVE Structurally normal tricuspid valve. There is mild tricuspid valve regurgitation. The estimated pulmonary arterial pressure is 37.7 mmHg. PULMONARY VALVE No pulmonary valve regurgitation or stenosis. VESSELS The inferior vena cava is normal in size. PERICARDIUM No pericardial effusion. Emmett Galdamez MD (Electronically Signed) Final Date:10 October 2017 16:22
[2017-10-10] MEDS: FUROSEMIDE 40 MG/4 ML VIAL IV PUSH SCH (17:57)
[2017-10-10] MEDS: QUEtiapine FUMARATE 25 MG TAB PO SCH (21:37)
[2017-10-10] MEDS: MIRTAZAPINE ODT 30 MG TAB PO SCH (21:37)
--- NOTE | 2017-10-10 21:54 | EKG ---
Date Performed: 10/10/2017 Time Performed: 03:09:18 PTAGE: 42 years EKG: Sinus rhythm Possible left atrial abnormality Left anterior fascicular block Possible anteroseptal infarct - age undetermined Possible left ventricular hypertrophy Lateral T wave changes may be due to hypertrophy a nd/or ischemia Abnormal ECG PREVIOUS TRACING : 10/09/2017 21.43 Compared to prior tracing no significant change DOCTOR: Elton Dhaliwal Interpretating Date/Time 10/10/2017 21:53:24
--- NOTE | 2017-10-10 22:29 | EKG ---
Date Performed: 10/09/2017 Time Performed: 21:43:20 PTAGE: 42 years EKG: Sinus rhythm POSSIBLE RIGHT ATRIAL ENLARGEMENT LEFT ATRIAL ENLARGEMENT INCOMPLETE RIGHT BUNDLE BRANCH BLOCK LEFT ANTERIOR FASCICULAR BLOCK ANTEROSEPTAL MYOCARDIAL INFARCTION MODERATE T-WAVE ABNORMALITY, CONSIDER LA TERAL ISCHEMIA ABNORMAL ECG NO PREVIOUS TRACING DOCTOR: Elton Dhaliwal Interpretating Date/Time 10/10/2017 22:27:36
[2017-10-11] VITALS (17 sets, daily range): BP systolic 97–150; BP diastolic 54–72; PULSE 52–97; RESP 12–18; TEMP 96.5–98.4; O2SAT 98–100
[2017-10-11] MEDS: SODIUM CHLORIDE 0.9% FLUSH 10 ML FLUSH IV FLUSH SCH ×2 (09:00→21:57)
[2017-10-11] MEDS: AZITHROMYCIN 250 MG TAB PO SCH (10:50)
[2017-10-11] MEDS: FOLIC ACID 1 MG TAB PO SCH (10:50)
[2017-10-11] MEDS: DIGOXIN 0.25 MG TAB PO SCH (10:51)
[2017-10-11] MEDS: THIAMINE HCL 100 MG TAB PO SCH (10:51)
[2017-10-11] MEDS: MULTIVITAMINS/MINERALS THERAPEUTIC TAB PO SCH (10:51)
[2017-10-11] MEDS: ASPIRIN EC 81 MG TABEC PO SCH (10:51)
[2017-10-11] MEDS: ISOSORBIDE MONONITRATE 30 MG TAB PO SCH (10:51)
[2017-10-11] MEDS: PANTOPRAZOLE SOD 20 MG DELAYED RELEASE TAB PO SCH (10:51)
[2017-10-11] MEDS: RIVAROXABAN 20 MG TAB PO SCH (10:51)
[2017-10-11] MEDS: RAMIPRIL 5 MG CAP PO SCH (10:52)
[2017-10-11] MEDS: CARVEDILOL 12.5 MG TAB PO SCH ×2 (10:52→21:54)
[2017-10-11] MEDS: FUROSEMIDE 40 MG/4 ML VIAL IV PUSH SCH ×2 (10:52→18:00)
[2017-10-11] MEDS: cefTRIAXone INJ 1,000 MG in SODIUM CHLORIDE 0.9% INJ 100 ML IV SCH (12:00)
--- NOTE | 2017-10-11 12:17 | MB ---
cc: HELGA MOULTON M.D. DATE OF CONSULTATION: REASON FOR CONSULTATION For possible defibrillator insertion. HISTORY OF PRESENT ILLNESS Mr. Valdivia is a 42-year-old -[place] gentleman with a history of congestive heart failure, cardiomyopathy, last ejection fraction in December, indicated ejection fraction around 20%, history of high blood pressure, alcohol abuse, presented to the emergency room due to shortness of breath. During hospitalization medication optimized. I was consulted for evaluation for defibrillator insertion. The chart was reviewed. The patient was evaluated. ALLERGIES IODINE, POTASSIUM IODINE. SOCIAL HISTORY The gentleman used to smoke three or four cigarettes a day, quit smoking. He has admitted drinking three to four beers a day and a couple of drinks. FAMILY HISTORY There is a strong family history of coronary artery disease. MEDICATIONS 1. Altace 5 mg a day. 2. Coreg 12.5 mg twice a day. 3. Omeprazole. 4. Xarelto. 5. Imdur. 6. Digoxin. REVIEW OF SYSTEMS The patient refers tired on minimal activity but no chest pain or chest discomfort. He refers he has been very anxious. PHYSICAL EXAMINATION GENERAL: Alert, full oriented. VITAL SIGNS: Blood pressure 118/88, pulse 69, respiratory rate 18. LUNGS: Ventilated. CARDIOVASCULAR: S1, S2. Regular. No gallop. No murmur. ABDOMEN: Soft. No mass. No bruit. EXTREMITIES: No edema. Electrocardiogram indicates sinus rhythm, incomplete right bundle branch block, left anterior fascicular block with ST changes. LABORATORY DATA Hemoglobin is 14.3, white blood cell 7.8, potassium is 5.1, creatinine is 1.26. Troponin 0.11. ASSESSMENT AND RECOMMENDATIONS Mr. Valdivia has congestive heart failure, cardiomyopathy, on optimal medical treatment. I had a long conversation with him about defibrillator implantation for sudden prevention. The risks, the nature and the benefit of the procedure are clearly stated to him. The risks include pneumothorax, cardiac perforation, stroke and even . He understands. The gentleman says he has a lot of anxiety. He wants to take the weekend to think about this option. We will reevaluate on Friday morning. MD MELINDA Calderón/MYKE /6:21 AM /11:43 AM
--- NOTE | 2017-10-11 17:53 | HHI.PR ---
Subjective Remarks Pt says he has been peeing his bed, or that maybe the fluid was just water, he is unsure. He is able to answer questions and seems oriented, but appears out of sorts. His friend confirmed that this is not his baseline. Objective Vitals Vital Signs Date Time Temp Pulse Resp B/P (MAP) Pulse Ox O2 Delivery O2 Flow Rate FiO2 10/11/17 16:00 98.4 77 16 102/64 (77) 10/11/17 15:00 97 10/11/17 12:00 98.0 78 18 150/62 (91) 98 10/11/17 08:00 97.4 63 18 103/54 (70) 99 10/11/17 07:00 79 10/11/17 06:00 60 10/11/17 05:00 54 10/11/17 04:00 62 10/11/17 04:00 96.7 52 12 109/69 (82) 100 10/11/17 03:00 60 10/11/17 02:00 62 10/11/17 01:00 66 10/11/17 00:00 60 10/11/17 00:00 96.5 56 12 97/65 (76) 100 10/10/17 23:00 66 10/10/17 22:00 66 10/10/17 21:00 68 10/10/17 20:00 98.5 74 16 101/68 (79) 99 10/10/17 20:00 68 10/10/17 19:00 73 10/10/17 18:00 78 I/O 10/10/17 10/10/17 10/10/17 10/11/17 10/11/17 10/11/17 07:00 15:00 23:00 07:00 15:00 23:00 Intake Total 100 ml 480 ml 960 ml 250 ml Output Total 900 ml Balance 100 ml 480 ml 60 ml 250 ml Intake Oral 480 ml 960 ml 250 ml IV Total 100 ml Output Urine Total 900 ml # Voids 4 2 # Bowel Movements 1 0 Result Diagram: 10/10/17 0453 10/10/17 0453 Objective Remarks GENERAL: Well-nourished, well-developed, but odd, tremulous and off of his baseline according to a friend SKIN: Warm and dry. HEAD: Normocephalic. EYES: No scleral icterus. No injection or drainage. NECK: Supple, trachea midline. No JVD or lymphadenopathy. CARDIOVASCULAR: Regular rate and rhythm without murmurs, gallops, or rubs. RESPIRATORY: Breath sounds equal bilaterally. No accessory muscle use. GASTROINTESTINAL: Abdomen soft, non-tender, nondistended. MUSCULOSKELETAL: No cyanosis, or edema. BACK: Nontender without obvious deformity. No CVA tenderness. EXTREMITIES: No edema A/P Problem List: (1) Chest pain ICD Code: R07.9 - Chest pain Status: Acute (2) Cardiomyopathy ICD Code: I42.9 - Cardiomyopathy Status: Acute Assessment and Plan Chest Pain w/ Elevated Troponin No active chest pain today Appreciate Dr. Meléndez consulting AICD placement was discussed and patient wishes to think about it until Friday, anxious Acute on Chronic CHF EF = 20-25% as of December 2016 Confusion Not true confusion, just out of sorts according to his friend He has a history of polysubstance abuse, could be withdrawing Will obtain drug screen Ativan PRN to cover for various withdrawals Urinalysis with culture if indicated History of Pulmonary Embolism Takes Xarelto at home, but held in case of procedure Continue Heparin drip Early PNA Rocephin/Azithromycin DVT Prophylaxis Heparin Drip Problem Qualifiers (1) Chest pain: Qualified Codes: R07.9 - Chest pain, unspecified Hussein Leigh MD Oct 11, 2017 17:53
--- NOTE | 2017-10-11 18:03 | HHI.PR ---
Subjective Remarks THIS IS THE CORRECT PROGRESS NOTE: Patient is in bed, comfortable, awaiting consultation with cardiology. Admitted for CP and questionable PNA, not coughing, no fevers. Objective Vitals Vital Signs Date Time Temp Pulse Resp B/P (MAP) Pulse Ox O2 Delivery O2 Flow Rate FiO2 10/11/17 16:00 98.4 77 16 102/64 (77) 10/11/17 15:00 97 10/11/17 12:00 98.0 78 18 150/62 (91) 98 10/11/17 08:00 97.4 63 18 103/54 (70) 99 10/11/17 07:00 79 10/11/17 06:00 60 10/11/17 05:00 54 10/11/17 04:00 62 10/11/17 04:00 96.7 52 12 109/69 (82) 100 10/11/17 03:00 60 10/11/17 02:00 62 10/11/17 01:00 66 10/11/17 00:00 60 10/11/17 00:00 96.5 56 12 97/65 (76) 100 10/10/17 23:00 66 10/10/17 22:00 66 10/10/17 21:00 68 10/10/17 20:00 98.5 74 16 101/68 (79) 99 10/10/17 20:00 68 10/10/17 19:00 73 I/O 10/10/17 10/10/17 10/10/17 10/11/17 10/11/17 10/11/17 07:00 15:00 23:00 07:00 15:00 23:00 Intake Total 100 ml 480 ml 960 ml 250 ml Output Total 900 ml Balance 100 ml 480 ml 60 ml 250 ml Intake Oral 480 ml 960 ml 250 ml IV Total 100 ml Output Urine Total 900 ml # Voids 4 2 # Bowel Movements 1 0 Result Diagram: 10/10/17 0453 10/10/17 045 Objective Remarks GENERAL: Well-nourished, well-developed, no apparent distress SKIN: Warm and dry. HEAD: Normocephalic. EYES: No scleral icterus. No injection or drainage. NECK: Supple, trachea midline. No JVD or lymphadenopathy. CARDIOVASCULAR: Regular rate and rhythm without murmurs, gallops, or rubs. RESPIRATORY: Breath sounds equal bilaterally. No accessory muscle use. GASTROINTESTINAL: Abdomen soft, non-tender, nondistended. MUSCULOSKELETAL: No cyanosis, or edema. BACK: Nontender without obvious deformity. No CVA tenderness. EXTREMITIES: No edema A/P Problem List: (1) Chest pain ICD Code: R07.9 - Chest pain Status: Acute (2) Cardiomyopathy ICD Code: I42.9 - Cardiomyopathy Status: Acute Assessment and Plan Chest Pain w/ Elevated Troponin No active chest pain today Appreciate Dr. Meléndez consulting AICD placement was discussed and patient wishes to think about it until Friday, anxious Acute on Chronic CHF EF = 20-25% as of December 2016 History of Pulmonary Embolism Takes Xarelto at home, but held in case of procedure Continue Heparin drip Early PNA Rocephin/Azithromycin DVT Prophylaxis Heparin Drip Problem Qualifiers (1) Chest pain: Qualified Codes: R07.9 - Chest pain, unspecified Hussein Leigh MD Oct 11, 2017 6:03 pm
[2017-10-11] MEDS: MIRTAZAPINE ODT 30 MG TAB PO SCH (21:53)
[2017-10-11] MEDS: QUEtiapine FUMARATE 25 MG TAB PO SCH (21:54)
[2017-10-12] VITALS (24 sets, daily range): BP systolic 88–106; BP diastolic 53–69; PULSE 56–70; RESP 14–22; TEMP 98–98.4; O2SAT 97–99
[2017-10-12] MEDS: FUROSEMIDE 40 MG/4 ML VIAL IV PUSH SCH ×2 (09:00→18:33)
[2017-10-12] MEDS: CARVEDILOL 12.5 MG TAB PO SCH ×2 (09:00→21:24)
[2017-10-12] MEDS: ISOSORBIDE MONONITRATE 30 MG TAB PO SCH (09:17)
[2017-10-12] MEDS: PANTOPRAZOLE SOD 20 MG DELAYED RELEASE TAB PO SCH (09:17)
[2017-10-12] MEDS: AZITHROMYCIN 250 MG TAB PO SCH (09:20)
[2017-10-12] MEDS: ASPIRIN EC 81 MG TABEC PO SCH (09:20)
[2017-10-12] MEDS: MULTIVITAMINS/MINERALS THERAPEUTIC TAB PO SCH (09:20)
[2017-10-12] MEDS: FOLIC ACID 1 MG TAB PO SCH (09:20)
[2017-10-12] MEDS: RIVAROXABAN 20 MG TAB PO SCH (09:21)
[2017-10-12] MEDS: THIAMINE HCL 100 MG TAB PO SCH (09:21)
[2017-10-12] MEDS: SODIUM CHLORIDE 0.9% FLUSH 10 ML FLUSH IV FLUSH SCH ×2 (09:21→21:25)
[2017-10-12] MEDS: RAMIPRIL 5 MG CAP PO SCH (09:21)
[2017-10-12] MEDS: DIGOXIN 0.25 MG TAB PO SCH (09:21)
[2017-10-12] MEDS: cefTRIAXone INJ 1,000 MG in SODIUM CHLORIDE 0.9% INJ 100 ML IV SCH (11:27)
[2017-10-12] MEDS ORDERED: SODIUM CHLORID 0.9% 500 ML INJ 500 ML IV SCH (12:00)
--- NOTE | 2017-10-12 16:21 | HHI.PR ---
Subjective Remarks Patient appears tired this morning, asking me when his AICD is scheduled for on Friday (I do not know). Objective Vitals Vital Signs Date Time Temp Pulse Resp B/P (MAP) Pulse Ox O2 Delivery O2 Flow Rate FiO2 10/12/17 13:00 68 10/12/17 12:30 98.0 66 18 90/64 (73) 98 10/12/17 12:00 60 10/12/17 11:00 63 10/12/17 10:00 64 10/12/17 09:00 58 10/12/17 08:00 98.4 64 16 95/69 (78) 97 10/12/17 08:00 56 10/12/17 07:44 56 10/12/17 06:00 58 10/12/17 05:00 60 10/12/17 04:18 63 10/12/17 04:00 98.1 62 22 90/58 (69) 99 10/12/17 03:00 58 10/12/17 02:00 60 10/12/17 01:00 68 10/12/17 00:00 98.2 70 14 88/53 (65) 98 10/12/17 00:00 70 10/11/17 23:00 68 10/11/17 22:00 68 10/11/17 21:00 62 10/11/17 20:00 98.0 73 16 103/72 (82) 98 10/11/17 19:00 88 I/O 10/11/17 10/11/17 10/11/17 10/12/17 10/12/17 10/12/17 07:00 15:00 23:00 07:00 15:00 23:00 Intake Total 960 ml 250 ml 480 ml 100 ml 495 ml Output Total 900 ml Balance 60 ml 250 ml 480 ml 100 ml 495 ml Intake Oral 960 ml 250 ml 480 ml IV Total 100 ml 495 ml Output Urine Total 900 ml # Voids 2 3 Result Diagram: 10/10/1745210/10/17 045 Objective Remarks GENERAL: Well-nourished, well-developed, appears tired today SKIN: Warm and dry. HEAD: Normocephalic. EYES: No scleral icterus. No injection or drainage. NECK: Supple, trachea midline. No JVD or lymphadenopathy. CARDIOVASCULAR: Regular rate and rhythm without murmurs, gallops, or rubs. RESPIRATORY: Breath sounds equal bilaterally. No accessory muscle use. GASTROINTESTINAL: Abdomen soft, non-tender, nondistended. MUSCULOSKELETAL: No cyanosis, or edema. BACK: Nontender without obvious deformity. No CVA tenderness. EXTREMITIES: No edema A/P Problem List: (1) Chest pain ICD Code: R07.9 - Chest pain Status: Acute (2) Cardiomyopathy ICD Code: I42.9 - Cardiomyopathy Status: Acute Assessment and Plan Chest Pain w/ Elevated Troponin No active chest pain Appreciate Dr. Meléndez consulting He seems more motivated to receive an AICD on Friday than he did before Hypotension 500ml bolus given, not aggressively due to low ejection fraction Acute on Chronic CHF EF = 20-25% as of December 2016 History of Pulmonary Embolism Takes Xarelto at home, but held in case of procedure Continue Heparin drip Early PNA Rocephin/Azithromycin DVT Prophylaxis Heparin Drip Problem Qualifiers (1) Chest pain: Qualified Codes: R07.9 - Chest pain, unspecified Hussein Leigh MD Oct 12, 2017 16:21
[2017-10-12] MEDS: QUEtiapine FUMARATE 25 MG TAB PO SCH (21:24)
[2017-10-12] MEDS: MIRTAZAPINE ODT 30 MG TAB PO SCH (21:24)
[2017-10-13] VITALS (26 sets, daily range): BP systolic 84–110; BP diastolic 58–77; PULSE 52–79; RESP 12–18; TEMP 97.3–98.9; O2SAT 99–100
[2017-10-13] MEDS: SODIUM CHLORIDE 0.9% FLUSH 10 ML FLUSH IV FLUSH SCH ×2 (09:00→22:00)
[2017-10-13] MEDS: PANTOPRAZOLE SOD 20 MG DELAYED RELEASE TAB PO SCH (09:42)
[2017-10-13] MEDS: RAMIPRIL 5 MG CAP PO SCH (09:42)
[2017-10-13] MEDS: AZITHROMYCIN 250 MG TAB PO SCH (09:42)
[2017-10-13] MEDS: MULTIVITAMINS/MINERALS THERAPEUTIC TAB PO SCH (09:42)
[2017-10-13] MEDS: FUROSEMIDE 40 MG/4 ML VIAL IV PUSH SCH ×2 (09:42→18:23)
[2017-10-13] MEDS: FOLIC ACID 1 MG TAB PO SCH (09:42)
[2017-10-13] MEDS: CARVEDILOL 12.5 MG TAB PO SCH ×2 (09:43→21:00)
[2017-10-13] MEDS: DIGOXIN 0.25 MG TAB PO SCH (09:43)
[2017-10-13] MEDS: RIVAROXABAN 20 MG TAB PO SCH (09:43)
[2017-10-13] MEDS: THIAMINE HCL 100 MG TAB PO SCH (09:44)
[2017-10-13] MEDS: ASPIRIN EC 81 MG TABEC PO SCH (09:44)
[2017-10-13] MEDS: ISOSORBIDE MONONITRATE 30 MG TAB PO SCH (09:44)
[2017-10-13] MEDS: cefTRIAXone INJ 1,000 MG in SODIUM CHLORIDE 0.9% INJ 100 ML IV SCH (13:20)
--- NOTE | 2017-10-13 19:17 | HHI.PR ---
Subjective Remarks Doing ok Objective Vital Signs Date Time Temp Pulse Resp B/P (MAP) Pulse Ox O2 Delivery O2 Flow Rate FiO2 10/13/17 16:01 66 10/13/17 15:45 98.9 71 18 105/67 (80) 100 10/13/17 15:00 68 10/13/17 14:00 70 10/13/17 13:00 66 10/13/17 12:00 66 10/13/17 11:01 98.7 63 18 106/73 (84) 100 10/13/17 11:00 66 10/13/17 10:00 60 10/13/17 09:01 98.1 62 18 110/77 (88) 100 10/13/17 09:00 58 10/13/17 08:00 58 10/13/17 07:00 55 10/13/17 06:00 60 10/13/17 05:00 54 10/13/17 04:00 56 10/13/17 04:00 97.3 54 16 99/66 (77) 100 10/13/17 03:00 52 10/13/17 02:00 52 10/13/17 01:00 58 10/13/17 00:00 97.9 60 16 97/68 (78) 100 10/13/17 00:00 60 10/12/17 23:00 70 10/12/17 22:00 60 10/12/17 21:00 62 10/12/17 20:00 98.2 64 16 100/69 (79) 99 10/12/17 20:00 68 I/O 10/12/17 10/12/17 10/12/17 10/13/17 10/13/17 10/13/17 07:00 15:00 23:00 07:00 15:00 23:00 Intake Total 480 ml 100 ml 1215 ml 240 ml 100 ml 960 ml Output Total 800 ml 150 ml 1100 ml Balance 480 ml 100 ml 415 ml 90 ml 100 ml -140 ml Intake Oral 480 ml 720 ml 240 ml 960 ml IV Total 100 ml 495 ml 100 ml Output Urine Total 800 ml 150 ml 1100 ml # Voids 3 3 1 5 # Bowel Movements 1 1 Result Diagram: 10/10/17 0453 10/10/17 0453 Imaging Alert, fully oriented Lungs: ventilated Heart S1, S2 regular abdomen: soft, no mass Ext: no edema Last Impressions Chest X-Ray 10/09/172131 Signed Impressions: Service Date/Time: October 22:00 - CONCLUSION: Mild basilar streaky infiltrates. Ti Veronica MD Current Medications Medications (Trade) Dose Ordered Sig/Talib Route Start Time Stop Time Status Last Admin (NS Flush) 2 ml BID IV FLUSH 10/10/17 09:00 10/13/17 09:00 (NS Flush) 2 ml UNSCH PRN IV FLUSH 10/09/17 23:30 (Coreg) 12.5 mg BID PO 10/10/17 09:00 10/13/17 09:43 (Lanoxin) 0.25 mg DAILY PO 10/10/17 09:00 10/13/17 09:43 (Imdur) 30 mg DAILY PO 10/10/17 09:00 10/13/17 09:44 (Remeron Soltab Odt) 30 mg HS PO 10/10/17 21:00 10/12/17 21:24 (SEROquel) 25 mg HS PO 10/10/17 21:00 10/12/17 21:24 (Altace) 5 mg DAILY PO 10/10/17 09:00 10/13/17 09:42 (Xarelto) 20 mg DAILY PO 10/10/17 09:00 Future hold 10/13/17 09:43 (Protonix) 20 mg DAILY PO 10/10/17 09:00 10/13/17 09:42 Ceftriaxone Sodium 1000 mg/ Sodium Chloride 100 ml @ 200 mls/hr Q24H IV 10/10/17 12:00 10/13/17 13:20 (Zithromax) 500 mg DAILY PO 10/11/17 09:00 10/13/17 09:42 (Morphine Inj) 1 mg Q4H PRN IV PUSH 10/10/17 11:15 (Nitroglycerin 2% Oint) 0.5 inch Q6HR PRN TOPICAL 10/10/17 11:15 (Ecotrin Ec) 81 mg DAILY PO 10/11/17 09:00 10/13/17 09:44 (Lasix Inj) 40 mg BID@,18 IV PUSH 10/10/17 18:00 10/13/17 18:23 (Folate) 1 mg DAILY PO 10/10/17 12:00 10/15/17 11:59 10/13/17 09:42 (Vitamin B1) 100 mg DAILY PO 10/10/17 12:00 10/13/17 09:44 (Theragran M Tab) 1 tab DAILY PO 10/10/17 12:00 10/15/17 11:59 10/13/17 09:42 (Romazicon Inj) 0.2 mg Q1M PRN IV PUSH 10/10/17 11:30 (Ativan) 1 mg Q4H PRN PO 10/10/17 11:30 (Ativan Inj) 1 mg Q4H PRN IV PUSH 10/10/17 11:30 (Ativan) 2 mg Q2H PRN PO 10/10/17 11:30 (Ativan Inj) 2 mg Q2H PRN IV PUSH 10/10/17 11:30 (Ativan Inj) 2 mg Q1H PRN IV PUSH 10/10/17 11:30 (Ativan Inj) 2 mg Q15M PRN IV PUSH 10/10/17 11:30 (Haldol Inj) 2 mg Q15M PRN IM 10/10/17 11:30 Assessment and Plan Problem List: (1) CHF (congestive heart failure) ICD Codes: I50.9 - CHF (congestive heart failure) Status: Acute Plan: On optimal medical management EF 20% I had again a conversation earlier with the patient. He decides to proceed with ICd implantation for sudden primary prevention procedure will be performed tomorrow AM (2) Fatigue ICD Codes: R53.83 - Fatigue Status: Acute Plan: Improving Ross Meléndez MD Oct 13, 2017 19:17
--- NOTE | 2017-10-13 21:35 | HHI.PR ---
Subjective Remarks Patient seen today around noon. Says he is feeling all right. Discussed procedure for AICD placement,. Objective Vital Signs Date Time Temp Pulse Resp B/P (MAP) Pulse Ox O2 Delivery O2 Flow Rate FiO2 10/13/17 18:00 72 10/13/17 17:00 66 10/13/17 16:01 66 10/13/17 15:45 98.9 71 18 105/67 (80) 100 10/13/17 15:00 68 10/13/17 14:00 70 10/13/17 13:00 66 10/13/17 12:00 66 10/13/17 11:01 98.7 63 18 106/73 (84) 100 10/13/17 11:00 66 10/13/17 10:00 60 10/13/17 09:01 98.1 62 18 110/77 (88) 100 10/13/17 09:00 58 10/13/17 08:00 58 10/13/17 07:00 55 10/13/17 06:00 60 10/13/17 05:00 54 10/13/17 04:00 56 10/13/17 04:00 97.3 54 16 99/66 (77) 100 10/13/17 03:00 52 10/13/17 02:00 52 10/13/17 01:00 58 10/13/17 00:00 97.9 60 16 97/68 (78) 100 10/13/17 00:00 60 10/12/17 23:00 70 10/12/17 22:00 60 I/O 10/12/17 10/12/17 10/12/17 10/13/17 10/13/17 10/13/17 07:00 15:00 23:00 07:00 15:00 23:00 Intake Total 480 ml 100 ml 1215 ml 240 ml 100 ml 960 ml Output Total 800 ml 150 ml 1100 ml Balance 480 ml 100 ml 415 ml 90 ml 100 ml -140 ml Intake Oral 480 ml 720 ml 240 ml 960 ml IV Total 100 ml 495 ml 100 ml Output Urine Total 800 ml 150 ml 1100 ml # Voids 3 3 1 5 # Bowel Movements 1 1 Result Diagram: 10/10/17 0453 10/10/17 0453 Objective Remarks GENERAL: patient sitting up in bed. Appears comfortable. Alert and oriented 3. SKIN: Warm and dry. HEAD: Normocephalic. EYES: No scleral icterus. No injection or drainage. NECK: Supple, trachea midline. No JVD. CARDIOVASCULAR: Regular rate and rhythm without murmurs, gallops, or rubs. RESPIRATORY: Breath sounds equal bilaterally. No accessory muscle use. GASTROINTESTINAL: Abdomen soft, non-tender, nondistended. MUSCULOSKELETAL: No cyanosis, or edema. BACK: Nontender without obvious deformity. No CVA tenderness. A/P Assessment and Plan /Chest Pain w/ Elevated Troponin No active chest pain Appreciate Dr. Meléndez consulting He seems more motivated to receive an AICD on Friday than he did before = AICD placement Ever. Appreciate cardiology assistance. //Hypotension = Blood pressure acceptable in the 100 systolic.. No need for fluids. //Acute on Chronic CHF EF = 20-25% as of December 2016 //History of Pulmonary Embolism Takes Xarelto at home, but held in case of procedure Continue Heparin drip //Early PNA Continue Rocephin/Azithromycin //DVT Prophylaxis Heparin Drip Discharge Planning possible discharge home tomorrow after procedure if cleared by cardiology. Immanuel Lambert MD Oct 13, 2017 21:35
[2017-10-13] MEDS: QUEtiapine FUMARATE 25 MG TAB PO SCH (21:59)
[2017-10-13] MEDS: MIRTAZAPINE ODT 30 MG TAB PO SCH (22:00)
[2017-10-13] MEDS: MORPHINE SULFATE 2 MG/ML INJ IV PUSH PRN (22:29)
[2017-10-14] VITALS (23 sets, daily range): BP systolic 83–124; BP diastolic 52–94; PULSE 54–81; RESP 12–20; TEMP 98.1–99; O2SAT 97–99
[2017-10-14] MEDS ORDERED: VANCOMYCIN 500 MG VIAL ONE (08:33)
[2017-10-14] MEDS ORDERED: LIDOCAINE HCL 2% 50 ML VIAL ONE (08:33)
[2017-10-14] MEDS ORDERED: ceFAZolin INJ 1,000 MG VIAL ONE (08:39)
[2017-10-14] MEDS ORDERED: VANCOMYCIN HCL 1000 MG VIAL ONE (08:39)
[2017-10-14] MEDS: ASPIRIN EC 81 MG TABEC PO SCH (09:00)
[2017-10-14] MEDS: RIVAROXABAN 20 MG TAB PO SCH (09:00)
[2017-10-14] MEDS: CARVEDILOL 12.5 MG TAB PO SCH ×2 (09:00→20:16)
[2017-10-14] MEDS: ISOSORBIDE MONONITRATE 30 MG TAB PO SCH (09:00)
[2017-10-14] MEDS ORDERED: diphenhydrAMINE HCL 50 MG/ML VIAL ONE (09:08)
--- NOTE | 2017-10-14 09:40 | PD.CARD ---
SINGLE CHAMBER DEFIB IMPLANT PROCEDURE DATE: Oct 14, 2017 NYHA Classification: Class II (Mild) Prevention: Primary Single Chamber Defib Implant PROCEDURE: Single chamber defibrillator implantation and device testing. INDICATIONS: Mr. Valdivia is a 42 -year-old male with hx of congestive heart failure, ejection fraction 20%, EF low for over a year, on optimal medical management who undergo defibrillator implantation for sudden primary prevention. The risks, the nature and the benefit of the procedure are clearly stated to him . Risks include pneumothorax, cardiac perforation, stroke and even . He understood and agreed to proceed. PROCEDURE: After written, informed consent was obtained, the patient was brought to the EP Lab where he was prepped and draped in the sterile fashion. Conscious sedation was initiated and maintained throughout the procedure by anesthesiologist. Once sedation was verified, the left infraclavicular area was anesthetized with 2% Xylocaine. Using modified Seldinger technique, the left subclavian vein was cannulated on one occasion and one guide wire was advanced. Then, using #11 blade scalpel, a 3-cm incision was made two fingerbreadths below left clavicle. This incision was then taken down to the deep fascial layer using Bovie cautery and blunt dissection. Into the inferomedial direction, a device pocket was dissected, then the wire was dissected into the pocket. A 2-0 Vicryl suture was placed around the wires to prevent bleeding. At this point, over the wire, the 9- Vietnamese dilator and introducer was advanced. As dilator and wire were removed, an active fixation right ventricular pacing, sensing and defibrillatory lead was advanced. After adequate pacing and sensing thresholds were obtained, the lead was secured in the pocket with #2 Ethibond suture. At that point, the pocket was copiously irrigated with antibiotic solution. The leads were connected to the generator and placed into the pocket. I did proceed with NIPS. Initial induction consisted of T-wave shock which induced ventricular fibrillation which was adequately detected and treated by the ICD generator, delivering a 20-joule defibrillatory shock converting the patient back into sinus rhythm. Shocking impedance was 79 ohms, charge time 4.0 seconds. At that point NIPS was complete. I did proceed with wound closure. The deep fascial layer was approximated with 2-0 Vicryl suture in a continuous fashion. The subcutaneous layer was approximated with 2-0 Vicryl suture in a continuous fashion. The subcuticular layer was approximated with 2-0 Vicryl suture in a continuous fashion. Dermabond adhesive was applied to the wound, followed by a sterile pressure dressing. There was no complication. The patient tolerated procedure. Blood loss minimal. 1. Implanted Hardware: The implanted defibrillator generator is a [employer]ronik, model number 359936, serial number [id number]. The right ventricular pacing, sensing and defibrillatory lead is a [employer] model number [id number], serial number [id number]. 2. Thresholds: The right ventricular pacing threshold in the bipolar mode was 0.8 volts at 0.5 milliseconds, lead impedance 755 ohms and R-wave at 14.4 mV. Sensing P wave 3.1 mv. The right ventricular defibrillatory threshold less than 20 joules shocking, impedance 79 ohms, charge time 4.0 seconds. 3. Settings: The device set in VVI 40 defibrillatory portion for two zones, one zone for ventricular tachycardia between 180 and 250 beats per minute. Initial therapy consists of one burst of ATP, one ramp, 81%, 10 pulse, 10 millisecond decremental, followed by 20, then 30 and all subsequent shocks at 30 joules defibrillatory shock, the second zone for ventricular fibrillation above 250 beats per minute, first therapy at 30 and all subsequent shocks at 40 joules defibrillatory shock. CONCLUSIONS: Successful defibrillator implantation and device testing. COMMENT AND RECOMMENDATIONS: The patient will be transferred to the telemetry unit, will be observed and when stable can be discharged home. Ross Meléndez MD Oct 14, 2017 09:40
--- NOTE | 2017-10-14 09:46 | CATHPROC ---
[employer] HIS Report Study Information Study Number Scheduled Start Study Start [id number] 10/14/2017 Oct 14 2017 7:30AM Referring Institution Admit Source Facility Department 1 Other [facility] Taxonomist Physician and Clinical Staff Initial Ross Fields Out Of Town Collection Clerk Rhea Webster,GEMINI Out Of Town Collection Clerk Milka Krause,MEDICAL FRONT DESK COORDINATOR TECH2 Other Anesthesia, ELECTION SUPERVISOR Recorder Leona Reynolds,GEMINI Scrub Kaiser Hilton,RT(R) Procedures Performed Procedure Lead Insertion Equipment Time Power Nut Runner Operator Description Size Mfg Part Number Used/Scraped DEFIBRILLATOR, INTICA 7 VR-T 09:35 BIOTRONIK VVE-VDDR [id number] Used DX 09:17 BIOTRONIK LEAD, PLEXA PRO-MRI DF 65/15 [id number] Used DERMABOND, ADHESIVE SKIN [id number] 07:36 CORDIS/PACER * Used GLUE MINI *[id number] TP-1103 07:36 MEDLINE INDUSTRIES SUTURE, STRIP PLUS 1/2" * Used *[id number] 07:36 MEDLINE PACER GLASS, LIMB * 2530 *[id number] Used [id number] 07:36 Matchpoint PACER PACK, PACER CUSTOM * Used *[id number] 08:28 OMG PACER SAFE SHEATH, FR8, 13CM FR 8 [id number] Used 08:47 Needle Sponge Count 2 22 Used 09:15 Needle Sponge Count 20 200 Used 09:15 Needle Sponge Count 3 3 Used 08:47 Needle Sponge Count 3 3 Used 09:11 NYCOMED OMNIPAQUE, 350 MG, 150ML 150ML [id number] Used SUTURE, 0 ETHIBOND [CT1] (CX21D), 8pk SUTURE, 2-0 VICRYL [CT1] (NVD085H) SUTURE, 2-0 VICRYL [CT1] (MSM468G) [id number] 07:36 [employer],WARM AIR CCL * Used *[id number] [facility] PAD, ELECTROSURGICAL 07:36 * [id number] *[id number] Used SURGICAL GROUNDING ORANGE [id number] 07:36 [employer] VIRGIL. / * Used *[id number] Equipment Model, Serial, Lot Number and Expiration Data Description Model Number Serial Number Lot Number Expiration Date DEFIBRILLATOR, INTICA 7 VR-T DX [id number] 02-02-2019 LEAD, PLEXA PRO-MRI DF 65/15 [id number] 09-04-2019 History: Risk Factors Hypertension Previous Heart Failure Yes Yes Labs Hgb (g/dl) Hct (%) RBC (MIL/MM3) WBC (l/cumm) Platelets (thousands) 11.60-17.00 35.00-51.00 4.00-5.90 4.00-11.00 150.00-450.00 14.0 43 4.8 7.8 186 Glucose (mg/dl) BUN (mg/dl) Creatinine (mg/dl) BUN:Creatinine (1:x) 74.00-106.00 7.00-18.00 0.50-1.30 10.00-20.00 78 30 1.3 23.1 Na (meq/l) K (meq/l) 136.00-145.00 3.50-5.10 142 5.1 INR (PTT:PT) 0.90-1.10 1.3 Medication Medication Total Dose (Bolus/Oral) Medication Total Dosage/Unit 2% XYLOCAINE 50 mL BENADRYL 50 mg DECADRON 5 mg Medications (Bolus/Oral) Medication Time Given Dosage/Unit Administered By Reason 2% XYLOCAINE 10/14/2017 9:04:56 AM 50 mL Ross Meléndez As per physicians verb al order 50 mL 2% XYLOCAINE given in lab by Ross Meléndez in Left shoulder via Subcutaneous. Ordered by Ross Meléndez. Reason: As per physicians verbal order. BENADRYL 10/14/2017 9:09:37 AM 50 mg Anesthesia, ELECTION SUPERVISOR As per physicians verba l order 50 mg BENADRYL given in lab by Anesthesia, ELECTION SUPERVISOR via Peripheral IV. Ordered by Ross Meléndez. Reason: As per physicians verbal order. for IODINE/FISH allergy. DECADRON 10/14/2017 9:10:28 AM 5 mg Anesthesia, ELECTION SUPERVISOR As per physicians verbal order 5 mg DECADRON given in lab by Anesthesia, ELECTION SUPERVISOR via Peripheral IV. Ordered by Ross Meléndez. Reason: A s per physicians verbal order. Medication (Drip) Medication Time Given Dosage/Unit Concentration/Unit Diluent (ml) Solution ANCEF 10/14/2017 8:52:09 AM 2 g 2 g ANCEF given in lab by Anesthesia, ELECTION SUPERVISOR via Peripheral IV. Ordered by Ross Meléndez. Reason: As pe r physicians verbal order. VANCOMYCIN DRIP 10/14/2017 8:49:41 AM 1 g 1 g VANCOMYCIN DRIP given in lab by Anesthesia, ELECTION SUPERVISOR via Peripheral IV. Ordered by Ross Meléndez. Amanda son: As per physicians verbal order. Initial Case Assessment Cardiovascular HR NIBP 61 111/61 Edema Present Skin color Skin None Normal Warm Dry Neurological State Oriented to time-place- Alert Moves all extremities person Respiration - General Respiration Rate SpO2 (%) O2 (lpm) (B/min) 15 100 4 Final Case Assessment Cardiovascular HR Rhythm NIBP 93 ST 95/66 Edema Present Skin color Skin None Normal Warm Dry Circulatory - Right Pulses Dorsalis Pedis 1 Scale (0,1,2,3,4,d) Circulatory - Left Pulses Dorsalis Pedis 1 Scale (0,1,2,3,4,d) Circulatory - Lower Extremities Color Lower Right Color Lower Left Normal Normal Neurological State Unresponsive Comment: reactive movements but not opening eyes or following commands. Respiration - General Respiration Rate SpO2 (%) O2 (lpm) (B/min) 14 100 0 Comment: breathing on r/a independtly Chronological Log Time Study Chronological Log 8:26:31 Patient arrived via Bed. 8:26:32 Patient Name, D.O.B, / Armband Verified By R.N. 8:26:32 History and physical on the chart. 8:26:33 Consent signed by the physician and the patient and verified by the Taxonomist staff. 8:26:33 Patient has been NPO for More than 6Hrs. 8:26:34 Pre-op and post- op instructions given; patient acknowledges understanding of instructions. 8:27:56 Verbal Stimulation=2 Physical Stimulation=2 Airway=2 Respiration=2 TOTAL=8. (0=absent, 1=washburn ited, 2=present) 8:28:07 Anesthesia at bedside. Assumes care of patient. 8:28:12 Skin Breakdown- none per pt. 8:28:19 Patient Warmer Placed on the Table. 8:28:21 Disposable Defibrillator Pads Placed On Patient. 8:28:22 Eloy Prominences Protected 8:28:41 A # 20 IV was noted in the Forearm (right). Grade = 0 0.9% NaCl at KVO. 8:29:01 A # 20 IV was noted in the Antecubital (left). Grade = 0 0.9% NaCl at KVO. 8:29:42 Disposable Defibrillator Pads Placed On Patient. 8:29:46 Bovie ground pad applied to: Right thigh. 8:30:02 2% CHLORHEXIDINE GLUCONATE WASH DONE PRIOR TO PROCEDURE. Nasal wipe held due to IODINE aller gy. Assessment: Initial Case, HR=61 BPM, ERMR=802/61 mmhg, Edema=None, Color=Normal, Skin = Warm, Dr y 8:46:09 Neurological: State=Alert, Ox3, MOREIRA Respiration: Resp=15 B/min, FzI0=198 %, O2=4 lpm First Sponge And Instrument Count Done by Kaiser Hilton, RT(R). 8:46:47 Hypo's: 3, Sponges: 20, Bovie/scratch: bovie/scratch Sutures: 2, Blades: 1, Instruments: 26, Syveck Patches: ~SYVECK PATCH~ verified with TF 8:47:36 Bilateral Upper Chest Prepped Times Two. 1 g VANCOMYCIN DRIP given in lab by Anesthesia, ELECTION SUPERVISOR via Peripheral IV. Ordered by Ross Meléndez . Reason: As per 8:49:41 physicians verbal order. 2 g ANCEF given in lab by Anesthesia, ELECTION SUPERVISOR via Peripheral IV. Ordered by Ross Meléndez. Reason: As per physicians 8:52:09 verbal order. 8:52:10 MD paged 8:53:13 Reference ECG taken 8:56:54 MD arrived. Time Out. Correct patient, procedure, procedure equipment, site and side verified with physician present. Time 9:00:30 concurred by MD, individual staff and ELECTION SUPERVISOR. Time Out #2 - Consents verified, patient in correct position, all results are labled and display ed, safety precautions 9:01:15 taken, antibiotics administered. Time out concurred by MD, individual staff and ELECTION SUPERVISOR in procedur e 9:01:15 Case Start 50 mL 2% XYLOCAINE given in lab by Ross Meléndez in Left shoulder via Subcutaneous. Ordered by Ross Hameed. 9:04:56 Reason: As per physicians verbal order. 50 mg BENADRYL given in lab by Anesthesia, ELECTION SUPERVISOR via Peripheral IV. Ordered by Ross Meléndez. [place] son: As per 9:09:37 physicians verbal order. for IODINE/FISH allergy. 5 mg DECADRON given in lab by Anesthesia, ELECTION SUPERVISOR via Peripheral IV. Ordered by Ross Meléndez. Reas on: As per 9:10:28 physicians verbal order. 9:11:58 Vascular access was obtained in the Subclav. Vein (Lft. 9:12:50 A SAFE SHEATH, FR8, 13CM FR 8 was advanced into the Subclav. Vein (Lft using the Modified Se de le[place] technique. 9:13:01 Surgical Incision Made. 9:13:13 A pocket was created at the L Upper Chest. 9:15:40 A LEAD, PLEXA PRO-MRI DF 65/15 was inserted and positioned in the RV. 9:16:23 The RV lead impedance and threshold being tested. 9:19:37 The RV lead was sutured to the fascia. 9:23:11 Pocket flushed with antibiotic solution 9:24:38 A DEFIBRILLATOR, INTICA 7 VR-T DX VVE-VDDR was connected and placed in the pocket. Second Sponge And Instrument Count Done by Kaiser Hilton RT(R). 9:26:17 Hypo's: 3, Sponges: 20, Bovie/scratch: bovie/scratch Sutures: 2, Blades: 1, Instruments: 26, Syveck Patches: ~SYVECK PATCH~ verified with TF 9:27:38 The pocket is being sutured closed. 9:29:16 Implant Procedure was performed. 9:29:23 A ICD Implant . (Single) 9:29:50 Bedside Report will be given. 9:29:55 Holding Area notified of successful intervention. spoke with Eva 9:31:20 Pocket closed. 9:31:28 A one Joul DFT was performed. 9:31:37 The DFT was Success at 20 Joules, 79 Ohms lead impedance and 4 ms charge time. FINAL Sponge And Instrument Count Done by Kaiser Hilton RT(R). 9:33:41 Hypo's: 3, Sponges: 20, Bovie/scratch: bovie/scratch Sutures: 2, Blades: 1, Instruments: 26, Syveck Patches: ~SYVECK PATCH~ verified with TF Assessment: Final Case, HR=93 BPM, Rhythm=ST, NIBP=95/66 mmhg, Edema=None, Color=Normal, Skin = Warm, Dry Right Pulses: Romulo Ped=1 Left Pulses: Romulo Ped=1 9:35:35 Lower Right Extremities: Color=Normal Lower Left Extremities: Color=Normal Neurological: State=Unresponsive, Comment=reactive movements but not opening eyes or following commands. Respiration: Resp=14 B/min, YbX1=889 %, O2=0 lpm, Comment=breathing on r/a independtly 9:36:13 Steri-strips and a sterile dressing applied to site. 9:37:00 Case End 9:37:15 No case complications noted. 9:37:16 Cine recording checked. 9:40:22 Implantable Device card placed in patient's chart. 9:43:50 Defibrillator and ground pads removed. Skin intact. 9:51:32 Notified PACU of pt heading their way. Spoke with Archana. 9:51:50 Notified floor of pt going to PACU first. Spoke with Eva. Patient moved to stretcher and transported on monitors to PACU VS stable and breathing indepen dently on R/A with 9:52:10 ELECTION SUPERVISOR accompanying pt. End Study - Contrast Media Used In Study Contrast Total Opened (mL) Total Used (mL) Total Wasted (mL) Unspecified 0 0 0 End Study - Maximum Contrast Load Max Contrast Load (mL) 173.4 End Study - Radiation Exposure Fluoro Time (minutes) 5.5 End Study - Patient Disposition Complications Transferred To Interventional Outcome No Telemetry Bed successful
[2017-10-14] MEDS ORDERED: MIDAZOLAM HCL 2 MG/2 ML VIAL ONE (09:53)
[2017-10-14] MEDS ORDERED: DO NOT ADM ANY ANTICOAGULANT DRUGS PRN (10:00)
[2017-10-14] MEDS ORDERED: ONDANSETRON HCL 4 MG/2 ML VIAL IV PUSH PRN (10:30)
[2017-10-14] MEDS ORDERED: SODIUM CHLORIDE 0.9% FLUSH 10 ML FLUSH IV FLUSH PRN (10:30)
--- NOTE | 2017-10-14 10:38 | RADRPT ---
EXAM DATE/TIME: 10/14/2017 10:19 [facility] COMPARISON: CHEST SINGLE AP, October 09, 2017, 22:00. INDICATIONS : Rule out pneumothorax. MEDICAL HISTORY : Chronic obstructive pulmonary disease. Congestive heart failure. Cardiovascular disease SURGICAL HISTORY : None. ENCOUNTER: Initial ACUITY: 1 day PAIN SCORE: 0/10 LOCATION: Bilateral chest FINDINGS: A single AP portable erect view of the chest was obtained and demonstrates interval placement of a le ft subclavian central venous line. There is a small left apical pneumothorax now identified measuring up to approximately 1.4 cm in diameter. The heart size remains at the upper limits of normal and the re are no confluent infiltrates or effusions. There is no perihilar edema. The bony thorax is intact. There are multiple overlying electrocardiogram leads. CONCLUSION: 1. Small left apical pneumothorax now identified measuring up to 1.4 cm. 2. Interval placement of left subclavian central venous line. Clifford Schmitz MD on October 14, 2017 at 10:31 Board Certified Radiologist. This report was verified electronically.
[2017-10-14] MEDS ORDERED: LIDOCAINE HCL 1% PF 5 ML SYRINGE OTHER ONE (12:00)
[2017-10-14] MEDS ORDERED: DEXAMETHASONE SOD PHOS 4 MG/ML VIAL IV ONE (12:00)
[2017-10-14] MEDS ORDERED: PROPOFOL 200 MG/20 ML AMP IV ONE (12:00)
--- NOTE | 2017-10-14 12:26 | RADRPT ---
EXAM DATE/TIME: 10/14/2017 11:54 [facility] COMPARISON: CHEST SINGLE AP, October 14, 2017, 10:19. INDICATIONS : Evaluate for pneumothorax post defibrillator insertion MEDICAL HISTORY : Cardiovascular disease. SURGICAL HISTORY : difibrillator ENCOUNTER: Subsequent ACUITY: 1 day PAIN SCORE: Non-responsive. LOCATION: Bilateral chest FINDINGS: A single view of the chest demonstrates pacer lead in right ventricle. Heart size normal. No consolid ation or effusion. Small left apical pneumothorax slightly improved from October 14 exam earlier today . CONCLUSION: 1. Small left apical pneumothorax, slightly improved from earlier exam. Yinka Chan MD on October 14, 2017 at 12:22 Board Certified Radiologist. This report was verified electronically.
[2017-10-14] MEDS: PANTOPRAZOLE SOD 20 MG DELAYED RELEASE TAB PO SCH (14:15)
[2017-10-14] MEDS: AZITHROMYCIN 250 MG TAB PO SCH (14:15)
[2017-10-14] MEDS: MULTIVITAMINS/MINERALS THERAPEUTIC TAB PO SCH (14:15)
[2017-10-14] MEDS: FOLIC ACID 1 MG TAB PO SCH (14:16)
[2017-10-14] MEDS: ACETAMINOPHEN/CODEINE 300 MG/30 MG TAB PO PRN (14:16)
[2017-10-14] MEDS: RAMIPRIL 5 MG CAP PO SCH (14:16)
[2017-10-14] MEDS: DIGOXIN 0.25 MG TAB PO SCH (14:17)
[2017-10-14] MEDS: SODIUM CHLORIDE 0.9% FLUSH 10 ML FLUSH IV FLUSH SCH ×3 (14:17→20:16)
[2017-10-14] MEDS: THIAMINE HCL 100 MG TAB PO SCH (14:17)
[2017-10-14] MEDS: cefTRIAXone INJ 1,000 MG in SODIUM CHLORIDE 0.9% INJ 100 ML IV SCH (14:21)
[2017-10-14] MEDS: FUROSEMIDE 40 MG/4 ML VIAL IV PUSH SCH ×2 (14:21→17:19)
--- NOTE | 2017-10-14 15:07 | EKG ---
Date Performed: 10/14/2017 Time Performed: 10:14:47 PTAGE: 42 years EKG: Sinus rhythm RIGHT ATRIAL ENLARGEMENT LEFT ATRIAL ENLARGEMENT MARKED LEFT AXIS DEVIATION POSSIBLE RIGHT VENTRICUL AR CONDUCTION DELAY ST DEVIATION AND MODERATE T-WAVE ABNORMALITY, CONSIDER LATERAL ISCHEMIA ABNORMAL ECG PREVIOUS TRACING : 10/10/2017 03.09 Compared to prior tracing no significant change DOCTOR: Charlie Bonilla Interpretating Date/Time 10/14/2017 15:06:22
[2017-10-14] MEDS: ceFAZolin 2 GM PREMIX 50 ML IV SCH (17:18)
[2017-10-14] MEDS: MORPHINE SULFATE 2 MG/ML INJ IV PUSH PRN ×2 (17:18→20:16)
--- NOTE | 2017-10-14 19:54 | HHI.PR ---
Subjective Remarks Patient seen today after procedure. Reports left upper chest pain at procedure site. Denies any nausea or vomiting. Objective Vital Signs Date Time Temp Pulse Resp B/P (MAP) Pulse Ox O2 Delivery O2 Flow Rate FiO2 10/14/17 17:08 98.2 76 18 103/77 (86) 99 10/14/17 17:00 70 10/14/17 16:00 72 10/14/17 15:16 18 10/14/17 14:30 81 20 120/86 (97) 98 10/14/17 13:30 80 20 118/80 (93) 97 10/14/17 13:00 79 10/14/17 12:30 81 20 124/88 (100) 97 10/14/17 12:01 79 10/14/17 11:30 81 20 122/94 (103) 98 10/14/17 11:15 97.4 79 20 123/91 (102) 100 Room Air 2 10/14/17 11:00 78 22 124/87 (99) 100 Nasal Cannula 2 10/14/17 10:45 76 14 120/87 (98) 100 Nasal Cannula 2 10/14/17 10:30 81 14 117/84 (95) 100 Nasal Cannula 2 10/14/17 10:15 82 12 114/81 (92) 96 Nasal Cannula 2 10/14/17 10:01 97.5 86 12 110/75 (87) 94 Nasal Cannula 2 10/14/17 08:08 18 96/52 (67) 10/14/17 08:00 61 10/14/17 06:00 60 10/14/17 05:00 54 10/14/17 04:00 62 10/14/17 03:00 62 10/14/17 03:00 98.1 60 16 83/58 (66) 99 10/14/17 02:00 66 10/14/17 01:00 66 10/14/17 00:00 64 10/13/17 23:00 72 10/13/17 23:00 98.3 65 12 91/64 (73) 99 10/13/17 22:00 72 10/13/17 21:00 68 I/O 10/13/17 10/13/17 10/13/17 10/14/17 10/14/17 10/14/17 07:00 15:00 23:00 07:00 15:00 23:00 Intake Total 240 ml 100 ml 960 ml 480 ml 0 ml 450 ml Output Total 150 ml 1100 ml 600 ml Balance 90 ml 100 ml -140 ml 480 ml 0 ml -150 ml Intake Oral 240 ml 960 ml 480 ml 0 ml 350 ml IV Total 100 ml 0 ml 100 ml Output Urine Total 150 ml 1100 ml 600 ml # Voids 1 5 4 0 # Bowel Movements 1 Result Diagram: 10/10/1745210/10/17 045 Objective Remarks GENERAL: patient sitting up in bed. Alert and oriented 3. SKIN: Warm and dry. HEAD: Normocephalic. EYES: No scleral icterus. No injection or drainage. NECK: Supple, trachea midline. No JVD. CARDIOVASCULAR: Regular rate and rhythm without murmurs, gallops, or rubs. RESPIRATORY: Breath sounds equal bilaterally. No accessory muscle use. GASTROINTESTINAL: Abdomen soft, non-tender, nondistended. MUSCULOSKELETAL: No cyanosis, or edema. BACK: Nontender without obvious deformity. No CVA tenderness. A/P Assessment and Plan /Chest Pain w/ Elevated Troponin No active chest pain Appreciate Dr. Meléndez consulting He seems more motivated to receive an AICD on Friday than he did before = AICD placement 10/14. Appreciate cardiology assistance. //Hypotension = Blood pressure acceptable in the 100 systolic.. No need for fluids. Recheck labs tomorrow. //Acute on Chronic CHF EF = 20-25% as of December 2016 //History of Pulmonary Embolism Takes Xarelto at home, but held in case of procedure Continue Heparin drip. Restart when appropriate as per cardiology. //Early PNA Continue Rocephin/Azithromycin //DVT Prophylaxis Heparin Drip Discharge Planning Discharge home when cleared by cardiology. Immanuel Lambert MD Oct 14, 2017 19:54
[2017-10-14] MEDS: MIRTAZAPINE ODT 30 MG TAB PO SCH (20:16)
[2017-10-14] MEDS: QUEtiapine FUMARATE 25 MG TAB PO SCH (20:16)
[2017-10-15] VITALS (22 sets, daily range): BP systolic 86–119; BP diastolic 51–69; PULSE 58–88; RESP 16–18; TEMP 98–98.8; O2SAT 97–100
[2017-10-15] MEDS: ceFAZolin 2 GM PREMIX 50 ML IV SCH ×2 (00:27→08:19)
[2017-10-15] MEDS: MORPHINE SULFATE 2 MG/ML INJ IV PUSH PRN ×2 (01:01→08:21)
[2017-10-15 06:31] LABS: AUTOMATED NEUTROPHIL # 13.9 TH/MM3 (1.8-7.7); BASOPHIL % 0.2 % (0.0-2.0); HEMATOCRIT 48.5 % (39.0-51.0); LYMPH % 7.2 % (9.0-44.0); LYMPHOCYTE # 1.2 TH/MM3 (1.0-4.8); MEAN CELL VOLUME 89.6 FL (80.0-100.0); MEAN CORPUSCULAR HEMOGLOBIN 29.6 PG (27.0-34.0); MEAN PLATELET VOLUME 10.4 FL (7.0-11.0); MONO % 7.8 % (0.0-8.0); MONOCYTE # 1.3 TH/MM3 (0-0.9); NEUT % 84.8 % (16.0-70.0); PLATELET COUNT 234 TH/MM3 (150-450); RED BLOOD COUNT 5.42 MIL/MM3 (4.50-5.90); RED CELL DISTRIBUTION WIDTH 14.2 % (11.6-17.2); WHITE BLOOD COUNT 16.4 TH/MM3 (4.0-11.0)
[2017-10-15 06:56] LABS: ALBUMIN 3.1 GM/DL (3.4-5.0); BICARBONATE 24.9 MEQ/L (21.0-32.0); CALCIUM 8.5 MG/DL (8.5-10.1); CREATININE 1.11 MG/DL (0.60-1.30); MAGNESIUM 1.7 MG/DL (1.5-2.5); PHOSPHORUS 2.7 MG/DL (2.5-4.9)
--- NOTE | 2017-10-15 07:55 | PD.CARD.PN ---
Subjective Subjective Remarks Feels okay Objective Medications Current Medications Medications (Trade) Dose Ordered Sig/Talib Route Start Time Stop Time Status Last Admin (NS Flush) 2 ml BID IV FLUSH 10/10/17 09:00 10/14/17 20:16 (NS Flush) 2 ml UNSCH PRN IV FLUSH 10/09/17 23:30 (Coreg) 12.5 mg BID PO 10/10/17 09:00 10/14/17 20:16 (Lanoxin) 0.25 mg DAILY PO 10/10/17 09:00 10/14/17 14:17 (Imdur) 30 mg DAILY PO 10/10/17 09:00 10/13/17 09:44 (Remeron Soltab Odt) 30 mg HS PO 10/10/17 21:00 10/14/17 20:16 (SEROquel) 25 mg HS PO 10/10/17 21:00 10/14/17 20:16 (Altace) 5 mg DAILY PO 10/10/17 09:00 10/14/17 14:16 (Xarelto) 20 mg DAILY PO 10/10/17 09:00 Future hold 10/13/17 09:43 (Protonix) 20 mg DAILY PO 10/10/17 09:00 10/14/17 14:15 Ceftriaxone Sodium 1000 mg/ Sodium Chloride 100 ml @ 200 mls/hr Q24H IV 10/10/17 12:00 10/14/17 14:21 (Zithromax) 500 mg DAILY PO 10/11/17 09:00 10/14/17 14:15 (Morphine Inj) 1 mg Q4H PRN IV PUSH 10/10/17 11:15 10/15/17 01:01 (Nitroglycerin 2% Oint) 0.5 inch Q6HR PRN TOPICAL 10/10/17 11:15 (Ecotrin Ec) 81 mg DAILY PO 10/11/17 09:00 10/13/17 09:44 (Lasix Inj) 40 mg BID@,18 IV PUSH 10/10/17 18:00 10/14/17 17:19 (Folate) 1 mg DAILY PO 10/10/17 12:00 10/15/17 11:59 10/14/17 14:16 (Vitamin B1) 100 mg DAILY PO 10/10/17 12:00 10/14/17 14:17 (Theragran M Tab) 1 tab DAILY PO 10/10/17 12:00 10/15/17 11:59 10/14/17 14:15 (Romazicon Inj) 0.2 mg Q1M PRN IV PUSH 10/10/17 11:30 (Ativan) 1 mg Q4H PRN PO 10/10/17 11:30 (Ativan Inj) 1 mg Q4H PRN IV PUSH 10/10/17 11:30 (Ativan) 2 mg Q2H PRN PO 10/10/17 11:30 (Ativan Inj) 2 mg Q2H PRN IV PUSH 10/10/17 11:30 (Ativan Inj) 2 mg Q1H PRN IV PUSH 10/10/17 11:30 (Ativan Inj) 2 mg Q15M PRN IV PUSH 10/10/17 11:30 (Haldol Inj) 2 mg Q15M PRN IM 10/10/17 11:30 Cefazolin Sodium/ Dextrose 50 ml @ 100 mls/hr Q8H IV 10/14/17 17:00 10/15/17 09:29 10/15/17 00:27 (Zofran Inj) 4 mg Q4H PRN IV PUSH 10/14/17 10:30 (Tylenol-Codeine #3) 1 tab Q4H PRN PO 10/14/17 10:30 (Tylenol-Codeine #3) 2 tab Q4H PRN PO 10/14/17 10:30 10/14/17 14:16 (NS Flush) 2 ml BID IV FLUSH 10/14/17 21:00 10/14/17 20:16 (NS Flush) 2 ml UNSCH PRN IV FLUSH 10/14/17 10:30 Miscellaneous Information ALL NURSING DEPARTME... UNSCH PRN .XX 10/14/17 10:00 10/15/17 09:59 Vital Signs / I&O Vital Signs Date Time Temp Pulse Resp B/P (MAP) Pulse Ox O2 Delivery O2 Flow Rate FiO2 10/15/17 04:00 70 10/15/17 03:00 72 10/15/17 03:00 98.2 71 89/59 (69) 10/15/17 02:00 70 1/10/18 01:00 74 10/15/17 00:00 68 10/14/17 23:00 72 10/14/17 23:00 98.5 70 12 95/62 (73) 10/14/17 22:00 72 10/14/17 21:00 72 10/14/17 20:00 74 10/14/17 19:00 79 10/14/17 19:00 99.0 77 16 99/66 (77) 10/14/17 17:08 98.2 76 18 103/77 (86) 99 10/14/17 17:00 70 10/14/17 16:00 72 10/14/17 15:16 18 10/14/17 14:30 81 20 120/86 (97) 98 10/14/17 13:30 80 20 118/80 (93) 97 10/14/17 13:00 79 10/14/17 12:30 81 20 124/88 (100) 97 10/14/17 12:01 79 10/14/17 11:30 81 20 122/94 (103) 98 10/14/17 11:15 97.4 79 20 123/91 (102) 100 Room Air 2 10/14/17 11:00 78 22 124/87 (99) 100 Nasal Cannula 2 10/14/17 10:45 76 14 120/87 (98) 100 Nasal Cannula 2 10/14/17 10:30 81 14 117/84 (95) 100 Nasal Cannula 2 10/14/17 10:15 82 12 114/81 (92) 96 Nasal Cannula 2 10/14/17 10:01 97.5 86 12 110/75 (87) 94 Nasal Cannula 2 10/14/17 08:08 18 96/52 (67) 10/14/17 08:00 61 I/O 10/14/17 10/14/17 10/14/17 10/15/17 10/15/17 10/15/17 07:00 15:00 23:00 07:00 15:00 23:00 Intake Total 480 ml 0 ml 450 ml 680 ml Output Total 600 ml 250 ml Balance 480 ml 0 ml -150 ml 430 ml Intake Oral 480 ml 0 ml 350 ml 680 ml IV Total 0 ml 100 ml Output Urine Total 600 ml 250 ml # Voids 4 0 Physical Exam GENERAL: Well-nourished, well-developed patient. SKIN: Warm and dry. Left chest wall incision well approximated without erythema or drainage. HEAD: Normocephalic. EYES: No scleral icterus. No injection or drainage. NECK: Supple, trachea midline. No JVD or lymphadenopathy. CARDIOVASCULAR: Regular rate and rhythm without murmurs, gallops, or rubs. RESPIRATORY: Breath sounds equal bilaterally. No accessory muscle use. GASTROINTESTINAL: Abdomen soft, non-tender, nondistended. EXTREMITIES: No cyanosis, or edema. NEUROLOGICAL: Awake, alert, and oriented x 3. Non-focal. Laboratory Laboratory Tests Test 10/15/17 04:53 White Blood Count 16.4 TH/MM3 Red Blood Count 5.42 MIL/MM3 Hemoglobin 16.0 GM/DL Hematocrit 48.5 % Mean Corpuscular Volume 89.6 FL Mean Corpuscular Hemoglobin 29.6 PG Mean Corpuscular Hemoglobin Concent 33.0 % Red Cell Distribution Width 14.2 % Platelet Count 234 TH/MM3 Mean Platelet Volume 10.4 FL Neutrophils (%) (Auto) 84.8 % Lymphocytes (%) (Auto) 7.2 % Monocytes (%) (Auto) 7.8 % Eosinophils (%) (Auto) 0.0 % Basophils (%) (Auto) 0.2 % Neutrophils # (Auto) 13.9 TH/MM3 Lymphocytes # (Auto) 1.2 TH/MM3 Monocytes # (Auto) 1.3 TH/MM3 Eosinophils # (Auto) 0.0 TH/MM3 Basophils # (Auto) 0.0 TH/MM3 CBC Comment AUTO DIFF Blood Urea Nitrogen 30 MG/DL Creatinine 1.11 MG/DL Random Glucose 129 MG/DL Albumin 3.1 GM/DL Calcium Level 8.5 MG/DL Phosphorus Level 2.7 MG/DL Magnesium Level 1.7 MG/DL Sodium Level 136 MEQ/L Potassium Level 3.7 MEQ/L Chloride Level 101 MEQ/L Carbon Dioxide Level 24.9 MEQ/L Anion Gap 10 MEQ/L Estimat Glomerular Filtration Rate 88 ML/MIN Imaging Last Impressions Chest X-Ray 10/14/175 Signed Impressions: Service Date/Time: Saturday, October 14, 2017 11:54 - CONCLUSION: 1. Small left apical pneumothorax, slightly improved from earlier exam. Ynika Chan MD Last 24 hours Impressions Chest X-Ray 10/14/175 Signed Impressions: Service Date/Time: Saturday, October 14, 2017 11:54 - CONCLUSION: 1. Small left apical pneumothorax, slightly improved from earlier exam. Yinka Chan MD Assessment and Plan Problem List: (1) Chronic systolic CHF (congestive heart failure) ICD Codes: I50.22 - Chronic systolic CHF (congestive heart failure) Status: Chronic Plan: History of nonischemic cardiomyopathy. EF 20%. Stable status post ICD implantation for sudden cardiac prevention. Postoperative chest x-ray indicated small apical pneumothorax. Repeat PA and lateral chest x-ray this morning. If stable can be discharged home with Dr. medellin's permanent pacemaker discharge instructions at the discretion of the managing team. Follow-up with Dr. medellin in 2 weeks per my discussion with him. Katherin Mcguire Oct 15, 2017 07:55
[2017-10-15] MEDS: AZITHROMYCIN 250 MG TAB PO SCH (08:19)
[2017-10-15] MEDS: SODIUM CHLORIDE 0.9% FLUSH 10 ML FLUSH IV FLUSH SCH ×4 (08:19→21:15)
[2017-10-15] MEDS: FUROSEMIDE 40 MG/4 ML VIAL IV PUSH SCH ×2 (08:19→18:18)
[2017-10-15] MEDS: CARVEDILOL 12.5 MG TAB PO SCH ×2 (08:20→21:00)
[2017-10-15] MEDS: DIGOXIN 0.25 MG TAB PO SCH (08:20)
[2017-10-15] MEDS: ASPIRIN EC 81 MG TABEC PO SCH (08:20)
[2017-10-15] MEDS: FOLIC ACID 1 MG TAB PO SCH (08:20)
[2017-10-15] MEDS: RIVAROXABAN 20 MG TAB PO SCH (08:20)
[2017-10-15] MEDS: RAMIPRIL 5 MG CAP PO SCH (08:20)
[2017-10-15] MEDS: ISOSORBIDE MONONITRATE 30 MG TAB PO SCH (08:20)
[2017-10-15] MEDS: THIAMINE HCL 100 MG TAB PO SCH (08:20)
[2017-10-15] MEDS: PANTOPRAZOLE SOD 20 MG DELAYED RELEASE TAB PO SCH (08:20)
[2017-10-15] MEDS: MULTIVITAMINS/MINERALS THERAPEUTIC TAB PO SCH (08:20)
--- NOTE | 2017-10-15 10:45 | RADRPT ---
EXAM DATE/TIME: 10/15/2017 10:21 [facility] COMPARISON: CHEST SINGLE AP, October 14, 2017, 11:54. INDICATIONS : Pneumothorax. Patient complains of left upper chest pain. MEDICAL HISTORY : Cardiovascular disease. Chronic obstructive pulmonary disease. Congestive heart failure SURGICAL HISTORY : Pacemaker. ENCOUNTER: Subsequent ACUITY: 1 week PAIN SCORE: 5/10 LOCATION: Bilateral chest FINDINGS: PA and lateral views of the chest demonstrate small lateral left-sided pneumothorax measuring [address] eural separation. No mediastinal shift. Left-sided defibrillator with single intact lead. The cardio mediastinal contours are unremarkable. Osseous structures are intact. CONCLUSION: Left lateral pneumothorax measures 9 mm pleural separation slightly more prominent on current study. Willy Payne MD on October 15, 2017 at 10:32 Board Certified Radiologist. This report was verified electronically.
--- NOTE | 2017-10-15 11:13 | HHI.PR ---
Subjective Remarks Follow-up for chest pain, cardiomyopathy. Patient underwent AICD placement on . Currently doing well. Postprocedure he developed small apical pneumothorax. Patient is currently is symptomatic. No fever or chills. Objective Vitals Vital Signs Date Time Temp Pulse Resp B/P (MAP) Pulse Ox O2 Delivery O2 Flow Rate FiO2 10/15/17 08:30 16 10/15/17 08:00 98.5 68 16 119/69 (86) 98 10/15/17 08:00 68 10/15/17 04:00 70 10/15/17 03:00 72 10/15/17 03:00 98.2 71 89/59 (69) 10/15/17 02:00 70 10/15/17 01:00 74 10/15/17 00:00 68 10/14/17 23:00 72 10/14/17 23:00 98.5 70 12 95/62 (73) 10/14/17 22:00 72 10/14/17 21:00 72 10/14/17 20:00 74 10/14/17 19:00 79 10/14/17 19:00 99.0 77 16 99/66 (77) 10/14/17 17:08 98.2 76 18 103/77 (86) 99 10/14/17 17:00 70 10/14/17 16:00 72 10/14/17 15:16 18 10/14/17 14:30 81 20 120/86 (97) 98 10/14/17 13:30 80 20 118/80 (93) 97 10/14/17 13:00 79 10/14/17 12:30 81 20 124/88 (100) 97 10/14/17 12:01 79 10/14/17 11:30 81 20 122/94 (103) 98 10/14/17 11:15 97.4 79 20 123/91 (102) 100 Room Air 2 I/O 10/14/17 10/14/17 10/14/17 10/15/17 10/15/17 10/15/17 07:00 15:00 23:00 07:00 15:00 23:00 Intake Total 480 ml 0 ml 450 ml 680 ml 50 ml Output Total 600 ml 250 ml Balance 480 ml 0 ml -150 ml 430 ml 50 ml Intake Oral 480 ml 0 ml 350 ml 680 ml IV Total 0 ml 100 ml 50 ml Output Urine Total 600 ml 250 ml # Voids 4 0 Result Diagram: 10/15/17 0453 10/15/17 0453 Imaging Last Impressions Chest X-Ray 10/15/17 0000 Signed Impressions: Service Date/Time: Sunday, October 15, 2017 10:21 - CONCLUSION: Left lateral pneumothorax measures 9 mm pleural separation slightly more prominent on current study. Willy Payne MD Objective Remarks GENERAL: Alert, oriented 3, NAD. SKIN: Warm and dry. HEAD: Normocephalic. EYES: No scleral icterus. No injection or drainage. NECK: Supple, trachea midline. No JVD or lymphadenopathy. CARDIOVASCULAR: Regular rate and rhythm without murmurs, gallops, or rubs. RESPIRATORY: Breath sounds equal bilaterally. No accessory muscle use. GASTROINTESTINAL: Abdomen soft, non-tender, nondistended. MUSCULOSKELETAL: No cyanosis, or edema. BACK: Nontender without obvious deformity. No CVA tenderness. Procedures 10/14/2017 AICD placement - single chamber defibrillator implantation 1. Implanted Hardware: The implanted defibrillator generator is a [employer], model number 936350, serial number [id number]. The right ventricular pacing, sensing and defibrillatory lead is a [employer] model number 279104, serial number [id number]. 2. Thresholds: The right ventricular pacing threshold in the bipolar mode was 0.8 volts at 0.5 milliseconds, lead impedance 755 ohms and R-wave at 14.4 mV. Sensing P wave 3.1 mv. The right ventricular defibrillatory threshold less than 20 joules shocking, impedance 79 ohms, charge time 4.0 seconds. 3. Settings: The device set in VVI 40 defibrillatory portion for two zones, one zone for ventricular tachycardia between 180 and 250 beats per minute. Initial therapy consists of one burst of ATP, one ramp, 81%, 10 pulse, 10 millisecond decremental, followed by 20, then 30 and all subsequent shocks at 30 joules defibrillatory shock, the second zone for ventricular fibrillation above 250 beats per minute, first therapy at 30 and all subsequent shocks at 40 joules defibrillatory shock. 10/10/2017 echocardiogram Normal left ventricular size. The left ventricular systolic function is severely reduced with an estimated ejection fraction less than 20%. Mild mitral valve regurgitation. No aortic valve regurgitation. No aortic valve stenosis. There is mild tricuspid valve regurgitation. The estimated pulmonary arterial pressure is 37.7 mmHg. A/P Problem List: (1) Chest pain ICD Code: R07.9 - Chest pain Status: Acute (2) Cardiomyopathy ICD Code: I42.9 - Cardiomyopathy Status: Acute Assessment and Plan 42-year-old AA male with a past medical history significant for nonischemic cardiomyopathy (echo 12/16/16 with an EF of 20-25%), hypertension, alcohol abuse , tobacco abuse presented to the emergency department with complaints of intermittent severe 7/10 stabbing and crushing substernal chest pain that radiated to the right and left chest. He was subsequently evaluated by cardiology. - Chest pain - Elevated troponins - likely due to supply demand mismatch - Non-ischemic Cardiomyopathy with EF around 20%. - Dr. Meléndez consulted. AICD placement 10/14. - Small left sided apical pneumothorax - Repeat CXR today shows slight increase in size. - Hypotension - Currently normotensive. Acute on Chronic CHF, systolic EF = 20-25% as of December 2016 History of Pulmonary Embolism - Continue Xarelto. Possible early pneumonia - Received 5 days of Azithromycin. Currently on Cephalexin post procedure. Full code. Xarelto. Problem Qualifiers (1) Chest pain: Qualified Codes: R07.9 - Chest pain, unspecified Sneha Peralta DO Oct 15, 2017 11:13 am
[2017-10-15] MEDS: CEPHALEXIN MONOHYDRATE 500 MG CAP PO SCH ×2 (16:04→21:12)
[2017-10-15] MEDS: QUEtiapine FUMARATE 25 MG TAB PO SCH (21:15)
[2017-10-15] MEDS: MIRTAZAPINE ODT 30 MG TAB PO SCH (21:15)
--- NOTE | 2017-10-15 21:22 | EKG ---
Date Performed: 10/15/2017 Time Performed: 02:13:54 PTAGE: 42 years EKG: Sinus rhythm Possible left atrial abnormality Left axis deviation Inferior infarct - age undetermined Possible an teroseptal infarct - age undetermined Lateral ST-T changes may be due to myocardial ischemia Abnormal ECG PREVIOUS TRACING : 10/14/2017 10.14 Compared to prior tracing no significant change DOCTOR: Leatha Amezquita Interpretating Date/Time 10/15/2017 21:20:33
[2017-10-16] VITALS (22 sets, daily range): BP systolic 84–109; BP diastolic 49–72; PULSE 60–80; RESP 16–18; TEMP 97.3–98.4; O2SAT 98–100
[2017-10-16] MEDS: MORPHINE SULFATE 2 MG/ML INJ IV PUSH PRN (02:05)
[2017-10-16] MEDS: CEPHALEXIN MONOHYDRATE 500 MG CAP PO SCH ×3 (04:25→21:02)
[2017-10-16] MEDS: SODIUM CHLORIDE 0.9% FLUSH 10 ML FLUSH IV FLUSH SCH ×4 (09:00→21:02)
--- NOTE | 2017-10-16 09:07 | RADRPT ---
EXAM DATE/TIME: 10/16/2017 08:12 [facility] COMPARISON: No previous studies available for comparison. INDICATIONS : Evaluate pneumothorax MEDICAL HISTORY : Cardiovascular disease. Chronic obstructive pulmonary disease. Congestive heart failure. SURGICAL HISTORY : Pacemaker. ENCOUNTER: Subsequent ACUITY: 1 week PAIN SCORE: 3/10 LOCATION: Bilateral chest FINDINGS: A single view of the chest demonstrates left apical left lateral pneumothorax measuring 1.6 cm at the apex and laterally 1.3 cm. The cardiomediastinal contours are unremarkable. Left-sided pacemaker/def ibrillator with a single intact lead. Osseous structures are intact. CONCLUSION: Small left-sided pneumothorax slightly enlarged from previous day. Chest tube likely needed. Willy Payne MD on October 16, 2017 at 9:04 Board Certified Radiologist. This report was verified electronically.
[2017-10-16] MEDS: ASPIRIN EC 81 MG TABEC PO SCH (09:09)
[2017-10-16] MEDS: RIVAROXABAN 20 MG TAB PO SCH (09:09)
[2017-10-16] MEDS: THIAMINE HCL 100 MG TAB PO SCH (09:09)
[2017-10-16] MEDS: AZITHROMYCIN 250 MG TAB PO SCH (09:09)
[2017-10-16] MEDS: ISOSORBIDE MONONITRATE 30 MG TAB PO SCH (09:09)
[2017-10-16] MEDS: PANTOPRAZOLE SOD 20 MG DELAYED RELEASE TAB PO SCH (09:09)
[2017-10-16] MEDS: DIGOXIN 0.25 MG TAB PO SCH (09:09)
[2017-10-16] MEDS: RAMIPRIL 5 MG CAP PO SCH (09:10)
[2017-10-16] MEDS: CARVEDILOL 12.5 MG TAB PO SCH ×2 (09:10→21:02)
[2017-10-16] MEDS: FUROSEMIDE 40 MG/4 ML VIAL IV PUSH SCH ×2 (09:10→16:58)
--- NOTE | 2017-10-16 10:25 | HHI.PR ---
Subjective Remarks Follow-up for chest pain, cardiomyopathy. Mr. Valdivia is currently doing well. However his blood pressure dropped too low 80s. He denies any chest pain, shortness of breath. He continues to have pain over AICD placement. No fever or chills. Objective Vitals Vital Signs Date Time Temp Pulse Resp B/P (MAP) Pulse Ox O2 Delivery O2 Flow Rate FiO2 10/16/17 09:28 78 10/16/17 08:56 98.1 78 18 98/72 (81) 99 10/16/17 06:00 70 10/16/17 05:00 68 10/16/17 04:00 97.3 62 18 100/49 (66) 99 10/16/17 04:00 69 10/16/17 03:00 70 10/16/17 02:00 80 10/16/17 01:00 68 10/16/17 00:00 98.4 68 18 101/55 (70) 98 10/16/17 00:00 66 10/15/17 23:00 68 10/15/17 22:00 68 10/15/17 21:00 68 10/15/17 20:00 71 10/15/17 20:00 98.8 70 18 86/51 (63) 97 10/15/17 18:17 101/53 (69) 10/15/17 18:00 71 10/15/17 17:00 74 10/15/17 16:05 58 10/15/17 16:05 98.0 58 16 105/60 (75) 100 10/15/17 15:00 73 10/15/17 14:00 68 10/15/17 13:00 78 10/15/17 12:00 73 10/15/17 11:35 98.5 85 16 108/66 (80) 100 I/O 10/15/17 10/15/17 10/15/17 10/16/17 10/16/17 10/16/17 07:00 15:00 23:00 07:00 15:00 23:00 Intake Total 680 ml 50 ml 480 ml 460 ml Output Total 250 ml 475 ml Balance 430 ml 50 ml 5 ml 460 ml Intake Oral 680 ml 480 ml 460 ml IV Total 50 ml Output Urine Total 250 ml 475 ml # Voids 2 2 # Bowel Movements 1 Result Diagram: 10/15/17 0453 10/15/17 0453 Imaging Last Impressions Chest X-Ray 10/16/17 0800 Signed Impressions: Service Date/Time: October 08:12 - CONCLUSION: Small left-sided pneumothorax slightly enlarged from previous day. Chest tube likely needed. Willy Payne MD Objective Remarks GENERAL: Alert, oriented 3, NAD. SKIN: Warm and dry. HEAD: Normocephalic. EYES: No scleral icterus. No injection or drainage. NECK: Supple, trachea midline. No JVD or lymphadenopathy. CARDIOVASCULAR: Regular rate and rhythm without murmurs, gallops, or rubs. RESPIRATORY: Breath sounds equal bilaterally. No accessory muscle use. GASTROINTESTINAL: Abdomen soft, non-tender, nondistended. MUSCULOSKELETAL: No cyanosis, or edema. BACK: Nontender without obvious deformity. No CVA tenderness. Procedures 10/14/2017 AICD placement - single chamber defibrillator implantation 1. Implanted Hardware: The implanted defibrillator generator is a [employer], model number [id number], serial number [id number]. The right ventricular pacing, sensing and defibrillatory lead is a [employer] model number 043813, serial number [id number]. 2. Thresholds: The right ventricular pacing threshold in the bipolar mode was 0.8 volts at 0.5 milliseconds, lead impedance 755 ohms and R-wave at 14.4 mV. Sensing P wave 3.1 mv. The right ventricular defibrillatory threshold less than 20 joules shocking, impedance 79 ohms, charge time 4.0 seconds. 3. Settings: The device set in VVI 40 defibrillatory portion for two zones, one zone for ventricular tachycardia between 180 and 250 beats per minute. Initial therapy consists of one burst of ATP, one ramp, 81%, 10 pulse, 10 millisecond decremental, followed by 20, then 30 and all subsequent shocks at 30 joules defibrillatory shock, the second zone for ventricular fibrillation above 250 beats per minute, first therapy at 30 and all subsequent shocks at 40 joules defibrillatory shock. 10/10/2017 echocardiogram Normal left ventricular size. The left ventricular systolic function is severely reduced with an estimated ejection fraction less than 20%. Mild mitral valve regurgitation. No aortic valve regurgitation. No aortic valve stenosis. There is mild tricuspid valve regurgitation. The estimated pulmonary arterial pressure is 37.7 mmHg. A/P Problem List: (1) Chest pain ICD Code: R07.9 - Chest pain Status: Acute (2) Cardiomyopathy ICD Code: I42.9 - Cardiomyopathy Status: Acute Assessment and Plan 42-year-old AA male with a past medical history significant for nonischemic cardiomyopathy (echo 12/16/16 with an EF of 20-25%), hypertension, alcohol abuse , tobacco abuse presented to the emergency department with complaints of intermittent severe 7/10 stabbing and crushing substernal chest pain that radiated to the right and left chest. He was subsequently evaluated by cardiology. - Chest pain - Elevated troponins - likely due to supply demand mismatch - Non-ischemic Cardiomyopathy with EF around 20%. - Dr. Meléndez consulted. AICD placement 10/14/2017. - Small left sided apical pneumothorax - Repeat CXR today shows further increase in pneumothorax. - I discussed with Dr. Meléndez who recommended that we get a IR consult. - Hypotension - BP dropped to 80s systolic with a MAP of 63. Will give patient a NS bolus of 500cc. Acute on Chronic CHF, systolic EF = 20-25% as of December 2016 History of Pulmonary Embolism - Continue Xarelto. Possible early pneumonia - Received 6 days of Azithromycin. Currently on Cephalexin post procedure. - Will stop Azithromycin. Full code. Xarelto. Problem Qualifiers (1) Chest pain: Qualified Codes: R07.9 - Chest pain, unspecified Sneha Peralta DO Oct 16, 2017 10:25 am
[2017-10-16] MEDS ORDERED: SODIUM CHLORID 0.9% 500 ML INJ 500 ML IV ONE ×2 (13:45→14:30)
[2017-10-16] MEDS: SODIUM CHLOR 0.9% 1000 ML INJ 1,000 ML IV SCH ×2 (14:30→21:03)
[2017-10-16] MEDS: QUEtiapine FUMARATE 25 MG TAB PO SCH (21:02)
[2017-10-16] MEDS: ACETAMINOPHEN/CODEINE 300 MG/30 MG TAB PO PRN (21:02)
[2017-10-16] MEDS: MIRTAZAPINE ODT 30 MG TAB PO SCH (21:02)
[2017-10-17] VITALS (13 sets, daily range): BP systolic 85–109; BP diastolic 44–72; PULSE 54–87; RESP 16–18; TEMP 97.9–98.7; O2SAT 96–100
[2017-10-17] MEDS: CEPHALEXIN MONOHYDRATE 500 MG CAP PO SCH ×3 (06:16→21:23)
[2017-10-17] MEDS: RAMIPRIL 5 MG CAP PO SCH (08:52)
[2017-10-17] MEDS: THIAMINE HCL 100 MG TAB PO SCH (08:52)
[2017-10-17] MEDS: CARVEDILOL 12.5 MG TAB PO SCH ×2 (08:52→21:25)
[2017-10-17] MEDS: PANTOPRAZOLE SOD 20 MG DELAYED RELEASE TAB PO SCH (08:52)
[2017-10-17] MEDS: RIVAROXABAN 20 MG TAB PO SCH (08:52)
[2017-10-17] MEDS: ASPIRIN EC 81 MG TABEC PO SCH (08:52)
[2017-10-17] MEDS: ISOSORBIDE MONONITRATE 30 MG TAB PO SCH (08:52)
[2017-10-17] MEDS: DIGOXIN 0.25 MG TAB PO SCH (08:52)
[2017-10-17] MEDS: SODIUM CHLORIDE 0.9% FLUSH 10 ML FLUSH IV FLUSH SCH ×3 (08:53→21:00)
[2017-10-17] MEDS: FUROSEMIDE 40 MG/4 ML VIAL IV PUSH SCH ×2 (08:53→18:32)
--- NOTE | 2017-10-17 10:25 | RADRPT ---
EXAM DATE/TIME: 10/17/2017 09:53 [facility] COMPARISON: CHEST PA & LAT, October 15, 2017, 10:21. CHEST SINGLE AP, October 09, 2017, 22:00. CHEST SINGLE AP, October 14, 2017, 10:19. INDICATIONS : Evaluate pneumothorax. MEDICAL HISTORY : Cardiovascular disease. Chronic obstructive pulmonary disease. Congestive heart failure. SURGICAL HISTORY : Pacemaker. ENCOUNTER: Subsequent ACUITY: 1 week PAIN SCORE: 0/10 LOCATION: Bilateral chest FINDINGS: Portable upright x-ray review of the chest demonstrates a normal size cardiac silhouette. Patient is slightly rotated. Left chest wall cardiac pacing device/AICD remains present. There is a persistent l eft-sided pneumothorax. It appears larger than on the prior study but today's study is performed with expiratory technique. Her no definite findings to indicate tension. The right lung demonstrates no a bnormality. CONCLUSION: Persistent left pneumothorax at least moderate in size. It appears larger than the prior study from 2 days ago but today's study was performed with expiratory technique. Satya Ku MD on October 17, 2017 at 10:12 Board Certified Radiologist. This report was verified electronically.
--- NOTE | 2017-10-17 13:37 | HHI.PR ---
Subjective Remarks Follow-up for chest pain, cardiomyopathy, pneumothorax after AICD placement. Patient is currently doing well. On room air. No fever, chills. States he does not have transportation to come back to the hospital for CXR. He actually requests SNF placement. Objective Vitals Vital Signs Date Time Temp Pulse Resp B/P (MAP) Pulse Ox O2 Delivery O2 Flow Rate FiO2 10/17/17 12:32 98.4 67 18 103/70 (81) 100 10/17/17 10:00 62 10/17/17 08:00 98.2 65 18 100/66 (77) 100 10/17/17 04:17 97.9 54 16 91/46 (61) 100 10/17/17 04:00 57 10/17/17 00:00 63 10/17/17 00:00 98.4 62 16 85/44 (58) 96 10/16/17 20:00 98.0 68 16 102/49 (66) 100 10/16/17 20:00 64 10/16/17 18:00 67 10/16/17 17:00 64 10/16/17 16:00 60 10/16/17 15:00 65 10/16/17 15:00 98.1 63 18 109/52 (71) 99 10/16/17 14:36 100/63 (75) 10/16/17 14:00 62 10/16/17 13:54 87/53 (64) I/O 10/16/17 10/16/17 10/16/17 10/17/17 10/17/17 10/17/17 07:00 15:00 23:00 07:00 15:00 23:00 Intake Total 460 ml 720 ml 360 ml Output Total 400 ml 250 ml Balance 460 ml 320 ml 110 ml Intake Oral 460 ml 720 ml 360 ml Output Urine Total 400 ml 250 ml # Voids 2 3 # Bowel Movements 1 0 Result Diagram: 10/15/17 0453 10/15/17 0453 Imaging Last Impressions Chest X-Ray 10/17/17 0000 Signed Impressions: Service Date/Time: Tuesday, October 17, 2017 09:53 - CONCLUSION: Persistent left pneumothorax at least moderate in size. It appears larger than the prior study from 2 days ago but today's study was performed with expiratory technique. Satya Ku MD Objective Remarks GENERAL: Alert, oriented 3, NAD. SKIN: Warm and dry. HEAD: Normocephalic. EYES: No scleral icterus. No injection or drainage. NECK: Supple, trachea midline. No JVD or lymphadenopathy. CARDIOVASCULAR: Regular rate and rhythm without murmurs, gallops, or rubs. RESPIRATORY: Breath sounds equal bilaterally. No accessory muscle use. GASTROINTESTINAL: Abdomen soft, non-tender, nondistended. MUSCULOSKELETAL: No cyanosis, or edema. BACK: Nontender without obvious deformity. No CVA tenderness. Procedures 10/14/2017 AICD placement - single chamber defibrillator implantation 1. Implanted Hardware: The implanted defibrillator generator is a [employer], model number 933667, serial number [id number]. The right ventricular pacing, sensing and defibrillatory lead is a [employer] model number 712933, serial number [id number]. 2. Thresholds: The right ventricular pacing threshold in the bipolar mode was 0.8 volts at 0.5 milliseconds, lead impedance 755 ohms and R-wave at 14.4 mV. Sensing P wave 3.1 mv. The right ventricular defibrillatory threshold less than 20 joules shocking, impedance 79 ohms, charge time 4.0 seconds. 3. Settings: The device set in VVI 40 defibrillatory portion for two zones, one zone for ventricular tachycardia between 180 and 250 beats per minute. Initial therapy consists of one burst of ATP, one ramp, 81%, 10 pulse, 10 millisecond decremental, followed by 20, then 30 and all subsequent shocks at 30 joules defibrillatory shock, the second zone for ventricular fibrillation above 250 beats per minute, first therapy at 30 and all subsequent shocks at 40 joules defibrillatory shock. 10/10/2017 echocardiogram Normal left ventricular size. The left ventricular systolic function is severely reduced with an estimated ejection fraction less than 20%. Mild mitral valve regurgitation. No aortic valve regurgitation. No aortic valve stenosis. There is mild tricuspid valve regurgitation. The estimated pulmonary arterial pressure is 37.7 mmHg. A/P Problem List: (1) Chest pain ICD Code: R07.9 - Chest pain Status: Acute (2) Cardiomyopathy ICD Code: I42.9 - Cardiomyopathy Status: Acute Assessment and Plan 42-year-old AA male with a past medical history significant for nonischemic cardiomyopathy (echo 12/16/16 with an EF of 20-25%), hypertension, alcohol abuse , tobacco abuse presented to the emergency department with complaints of intermittent severe 7/10 stabbing and crushing substernal chest pain that radiated to the right and left chest. He was subsequently evaluated by cardiology. - Chest pain - Elevated troponins - likely due to supply demand mismatch - Non-ischemic Cardiomyopathy with EF around 20%. - Dr. Meléndez consulted. AICD placement 10/14/2017. - Small left sided apical pneumothorax - Repeat CXR today shows further increase in pneumothorax. - I discussed with Dr. Meléndez on 10/16/2017 who recommended that we get a IR consult. - I discussed with IR - ideally, they would like to do CXR serially. However , if patient is discharged, he may not be able to come back due to transportation issues. - Discussed with Case management. We might be able to arrange SNF. If arranged, we can discharge him today and repeat CXR on 10/18/2017 and 10/20/2017. - Hypotension - BP dropped to 80s systolic with a MAP of 63. Will give patient a NS bolus of 500cc. Acute on Chronic CHF, systolic EF = 20-25% as of December 2016 History of Pulmonary Embolism, DVT. - I looked through chart. His DVT is old and in fact in a previous hospitalization, he was discharged with discontinuation of Xarelto. - Will discontinue Xarelto. No recent DVT, PE. Possible early pneumonia - Received 6 days of Azithromycin. Currently on Cephalexin post procedure. - Will stop Azithromycin. Full code. Was on Xarelto. Will place SCDs. Problem Qualifiers (1) Chest pain: Qualified Codes: R07.9 - Chest pain, unspecified Sneha Peralta DO Oct 17, 2017 1:37 pm
[2017-10-17] MEDS ORDERED: ACET1TAB94 PO (13:41)
[2017-10-17] MEDS: SODIUM CHLOR 0.9% 1000 ML INJ 1,000 ML IV SCH (20:29)
[2017-10-17] MEDS: QUEtiapine FUMARATE 25 MG TAB PO SCH (21:24)
[2017-10-17] MEDS: MIRTAZAPINE ODT 30 MG TAB PO SCH (21:24)
[2017-10-17] MEDS: ACETAMINOPHEN/CODEINE 300 MG/30 MG TAB PO PRN (21:25)
[2017-10-18] VITALS (21 sets, daily range): BP systolic 93–109; BP diastolic 56–71; PULSE 58–80; RESP 16; TEMP 97.5–98.7; O2SAT 93–100
[2017-10-18] MEDS: CEPHALEXIN MONOHYDRATE 500 MG CAP PO SCH (05:31)
[2017-10-18] MEDS: SODIUM CHLOR 0.9% 1000 ML INJ 1,000 ML IV SCH ×2 (06:30→16:30)
--- NOTE | 2017-10-18 08:57 | RADRPT ---
EXAM DATE/TIME: 10/18/2017 08:12 [facility] COMPARISON: CHEST EXPIRATION ONLY, October 17, 2017, 9:53. CHEST SINGLE AP, October 16, 2017, 8:12. INDICATIONS : Evaluate for pneumothorax. MEDICAL HISTORY : Congestive heart failure. Cardiovascular disease. Chronic obstructive pulmonary disease. SURGICAL HISTORY : Pacemaker. ENCOUNTER: Subsequent ACUITY: 1 week PAIN SCORE: 3/10 LOCATION: chest FINDINGS: Single AP view of the chest. AICD remains in place. Left-sided pneumothorax unchanged measuring 1.6 c m at the apex. It is again seen at the upper mid and lower lung zones Lungs are clear. Ardiomediastin al silhouette unchanged. CONCLUSION: Left-sided pneumothorax unchanged. Chalino Huynh MD on October 18, 2017 at 8:52 Board Certified Radiologist. This report was verified electronically.
[2017-10-18] MEDS: SODIUM CHLORIDE 0.9% FLUSH 10 ML FLUSH IV FLUSH SCH ×4 (09:00→21:26)
[2017-10-18] MEDS: CARVEDILOL 12.5 MG TAB PO SCH ×2 (09:22→21:27)
[2017-10-18] MEDS: DIGOXIN 0.25 MG TAB PO SCH (09:22)
[2017-10-18] MEDS: RAMIPRIL 5 MG CAP PO SCH (09:22)
[2017-10-18] MEDS: ISOSORBIDE MONONITRATE 30 MG TAB PO SCH (09:23)
[2017-10-18] MEDS: FUROSEMIDE 40 MG/4 ML VIAL IV PUSH SCH ×2 (09:23→16:45)
[2017-10-18] MEDS: ASPIRIN EC 81 MG TABEC PO SCH (09:23)
[2017-10-18] MEDS: PANTOPRAZOLE SOD 20 MG DELAYED RELEASE TAB PO SCH (09:23)
[2017-10-18] MEDS: THIAMINE HCL 100 MG TAB PO SCH (09:23)
--- NOTE | 2017-10-18 09:59 | HHI.PR ---
Subjective Remarks This is a pleasant 42 y/o male with Cardiomyopathy, who is followed due to Chest pain, Developed Pneumothorax after AICD placement, he requested to go to SNF at discharge, asked for security management specialist consult. Objective Vital Signs Date Time Temp Pulse Resp B/P (MAP) Pulse Ox O2 Delivery O2 Flow Rate FiO2 10/18/17 07:24 60 10/18/17 06:25 58 10/18/17 05:12 60 10/18/17 04:25 58 10/18/17 04:04 97.5 61 96/56 (69) 99 10/18/17 03:00 63 10/18/17 02:09 63 10/17/17 23:34 98.5 68 87/53 (64) 99 10/17/17 23:00 68 10/17/17 20:00 98.7 87 107/72 (84) 99 10/17/17 19:00 76 10/17/17 18:00 64 10/17/17 16:00 98.2 74 16 109/71 (84) 100 10/17/17 13:00 66 10/17/17 12:32 98.4 67 18 103/70 (81) 100 10/17/17 10:00 62 I/O 10/17/17 10/17/17 10/17/17 10/18/17 10/18/17 10/18/17 07:00 15:00 23:00 07:00 15:00 23:00 Intake Total 360 ml 120 ml Output Total 250 ml Balance 110 ml 120 ml Intake Oral 360 ml 120 ml Output Urine Total 250 ml # Voids 2 # Bowel Movements 0 Result Diagram: 10/15/1745210/15/17 045 Imaging Last Impressions Chest X-Ray 10/18/17 0800 Signed Impressions: Service Date/Time: Wednesday, October 18, 2017 08:12 - CONCLUSION: Left-sided pneumothorax unchanged. Chalino Huynh MD Procedures 10/14/2017 AICD placement - single chamber defibrillator implantation 1. Implanted Hardware: The implanted defibrillator generator is a NubisioroniEveo, model number 557094, serial number [id number]. The right ventricular pacing, sensing and defibrillatory lead is a [employer]otronik model number 036387, serial number [id number]. 2. Thresholds: The right ventricular pacing threshold in the bipolar mode was 0.8 volts at 0.5 milliseconds, lead impedance 755 ohms and R-wave at 14.4 mV. Sensing P wave 3.1 mv. The right ventricular defibrillatory threshold less than 20 joules shocking, impedance 79 ohms, charge time 4.0 seconds. 3. Settings: The device set in VVI 40 defibrillatory portion for two zones, one zone for ventricular tachycardia between 180 and 250 beats per minute. Initial therapy consists of one burst of ATP, one ramp, 81%, 10 pulse, 10 millisecond decremental, followed by 20, then 30 and all subsequent shocks at 30 joules defibrillatory shock, the second zone for ventricular fibrillation above 250 beats per minute, first therapy at 30 and all subsequent shocks at 40 joules defibrillatory shock. 10/10/2017 echocardiogram Normal left ventricular size. The left ventricular systolic function is severely reduced with an estimated ejection fraction less than 20%. Mild mitral valve regurgitation. No aortic valve regurgitation. No aortic valve stenosis. There is mild tricuspid valve regurgitation. The estimated pulmonary arterial pressure is 37.7 mmHg. Other Results Laboratory Tests Test 10/09/17 21:41 10/10/17 10:27 10/15/17 04:53 Platelet Estimate NORMAL Platelet Morphology Comment NORMAL Prothrombin Time 13.0 SEC Prothromb Time International Ratio 1.3 RATIO Activated Partial Thromboplast Time 24.2 SEC Blood Urea Nitrogen 25 MG/DL 30 MG/DL Creatinine 1.37 MG/DL 1.11 MG/DL Random Glucose 85 MG/DL 129 MG/DL Total Protein 7.1 GM/DL Albumin 3.5 GM/DL 3.1 GM/DL Calcium Level 8.9 MG/DL 8.5 MG/DL Alkaline Phosphatase 76 U/L Aspartate Amino Transf (AST/SGOT) 183 U/L Alanine Aminotransferase (ALT/SGPT) 84 U/L Total Bilirubin 3.1 MG/DL Sodium Level 138 MEQ/L 136 MEQ/L Potassium Level 4.6 MEQ/L 3.7 MEQ/L Chloride Level 109 MEQ/L 101 MEQ/L Carbon Dioxide Level 16.0 MEQ/L 24.9 MEQ/L B-Type Natriuretic Peptide 2925 PG/ML Total Creatine Kinase 351 U/L Creatine Kinase MB 15.9 NG/ML Creatine Kinase MB % 4.5 % Troponin I 0.11 NG/ML White Blood Count 16.4 TH/MM3 Red Blood Count 5.42 MIL/MM3 Hemoglobin 16.0 GM/DL Hematocrit 48.5 % Mean Corpuscular Volume 89.6 FL Mean Corpuscular Hemoglobin 29.6 PG Mean Corpuscular Hemoglobin Concent 33.0 % Red Cell Distribution Width 14.2 % Platelet Count 234 TH/MM3 Mean Platelet Volume 10.4 FL Neutrophils (%) (Auto) 84.8 % Lymphocytes (%) (Auto) 7.2 % Monocytes (%) (Auto) 7.8 % Eosinophils (%) (Auto) 0.0 % Basophils (%) (Auto) 0.2 % Neutrophils # (Auto) 13.9 TH/MM3 Lymphocytes # (Auto) 1.2 TH/MM3 Monocytes # (Auto) 1.3 TH/MM3 Eosinophils # (Auto) 0.0 TH/MM3 Basophils # (Auto) 0.0 TH/MM3 CBC Comment AUTO DIFF Differential Comment AUTO DIFF CONFIRMED Acanthocytes Phosphorus Level 2.7 MG/DL Magnesium Level 1.7 MG/DL Anion Gap 10 MEQ/L Estimat Glomerular Filtration Rate 88 ML/MIN Objective Remarks GENERAL: Alert, oriented 3, NAD. SKIN: Warm and dry. HEAD: Normocephalic. EYES: No scleral icterus. No injection or drainage. NECK: Supple, trachea midline. No JVD or lymphadenopathy. CARDIOVASCULAR: Regular rate and rhythm without murmurs, gallops, or rubs. RESPIRATORY: Breath sounds equal bilaterally. No accessory muscle use. GASTROINTESTINAL: Abdomen soft, non-tender, nondistended. MUSCULOSKELETAL: No cyanosis, or edema. BACK: Nontender without obvious deformity. No CVA tenderness. Medications and IVs Current Medications Medications (Trade) Dose Ordered Sig/Talib Route Start Time Stop Time Status Last Admin (NS Flush) 2 ml BID IV FLUSH 10/10/17 09:00 10/18/17 09:23 (NS Flush) 2 ml UNSCH PRN IV FLUSH 10/09/17 23:30 (Coreg) 12.5 mg BID PO 10/10/17 09:00 10/18/17 09:22 (Lanoxin) 0.25 mg DAILY PO 10/10/17 09:00 10/18/17 09:22 (Imdur) 30 mg DAILY PO 10/10/17 09:00 10/18/17 09:23 (Remeron Soltab Odt) 30 mg HS PO 10/10/17 21:00 10/17/17 21:24 (SEROquel) 25 mg HS PO 10/10/17 21:00 10/17/17 21:24 (Altace) 5 mg DAILY PO 10/10/17 09:00 10/18/17 09:22 (Protonix) 20 mg DAILY PO 10/10/17 09:00 10/18/17 09:23 (Morphine Inj) 1 mg Q4H PRN IV PUSH 10/10/17 11:15 10/16/17 02:05 (Nitroglycerin 2% Oint) 0.5 inch Q6HR PRN TOPICAL 10/10/17 11:15 (Ecotrin Ec) 81 mg DAILY PO 10/11/17 09:00 10/18/17 09:23 (Lasix Inj) 40 mg BID@ IV PUSH 10/10/17 18:00 10/18/17 09:23 (Vitamin B1) 100 mg DAILY PO 10/10/17 12:00 10/18/17 09:23 (Romazicon Inj) 0.2 mg Q1M PRN IV PUSH 10/10/17 11:30 (Ativan) 1 mg Q4H PRN PO 10/10/17 11:30 (Ativan Inj) 1 mg Q4H PRN IV PUSH 10/10/17 11:30 (Ativan) 2 mg Q2H PRN PO 10/10/17 11:30 (Ativan Inj) 2 mg Q2H PRN IV PUSH 10/10/17 11:30 (Ativan Inj) 2 mg Q1H PRN IV PUSH 10/10/17 11:30 (Ativan Inj) 2 mg Q15M PRN IV PUSH 10/10/17 11:30 (Haldol Inj) 2 mg Q15M PRN IM 10/10/17 11:30 (Zofran Inj) 4 mg Q4H PRN IV PUSH 10/14/17 10:30 10/15/17 13:10 (Tylenol-Codeine #3) 1 tab Q4H PRN PO 10/14/17 10:30 10/16/17 21:02 (Tylenol-Codeine #3) 2 tab Q4H PRN PO 10/14/17 10:30 10/17/17 21:25 (NS Flush) 2 ml BID IV FLUSH 10/14/17 21:00 10/17/17 20:29 (NS Flush) 2 ml UNSCH PRN IV FLUSH 10/14/17 10:30 (Keflex) 500 mg Q8HR PO 10/15/17 14:00 10/18/17 13:59 10/18/17 05:31 Sodium Chloride 1,000 ml @ 100 mls/hr Q10H IV 10/16/17 14:30 10/16/17 14:30 A/P Assessment and Plan 42-year-old AA male with a past medical history significant for nonischemic cardiomyopathy (echo 12/16/16 with an EF of 20-25%), hypertension, alcohol abuse , tobacco abuse presented to the emergency department with complaints of intermittent severe 7/10 stabbing and crushing substernal chest pain that radiated to the right and left chest. He was subsequently evaluated by cardiology. - Chest pain - Elevated troponins - likely due to supply demand mismatch - Non-ischemic Cardiomyopathy with EF around 20%. - Dr. Meléndez consulted. AICD placement 10/14/2017. - Small left sided apical pneumothorax - Repeat CXR today shows further increase in pneumothorax. - I discussed with Dr. Meléndez on 10/16/2017 who recommended that we get a IR consult. - I discussed with IR - ideally, they would like to do CXR serially. However , if patient is discharged, he may not be able to come back due to transportation issues. - Discussed with Case management. We might be able to arrange SNF. If arranged, we can discharge him today and repeat CXR on 10/18/2017 and 10/20/2017. -Asked for security management specialist consult - Hypotension - stable. Acute on Chronic CHF, systolic EF = 20-25% as of December 2016 continue Lasix. History of Pulmonary Embolism, DVT. - I looked through chart. His DVT is old and in fact in a previous hospitalization, he was discharged with discontinuation of Xarelto. - Will discontinue Xarelto. No recent DVT, PE. Possible early pneumonia - Received 6 days of Azithromycin. Currently on Cephalexin post procedure. - stopped Azithromycin. Full code. was on Xarelto now on SCDs. Discharge Planning awaiting final by security management specialist for discharge. Dillan Lewis MD Oct 18, 2017 09:59
[2017-10-18] MEDS ORDERED: RESP: ALBUTEROL 2.5 MG/IPRATROPIUM 0.5 MG NEB (PRN) NEB (15:15)
[2017-10-18] MEDS: RESP: ALBUTEROL 2.5 MG/IPRATROPIUM 0.5 MG NEB (SCH) NEB ×3 (15:54→23:21)
--- NOTE | 2017-10-18 17:13 | MB ---
cc: MONIKA MOSS M.D. DATE OF CONSULTATION: 10/18/2017. HISTORY OF PRESENT ILLNESS: The patient is a 42-year-old male with past medical history of nonischemic cardiomyopathy with an ejection fraction of 20%, hypertension, EtOH abuse who was admitted to [facility] on October 10 with chest pain. The patient was found to have mild elevation in troponins and he had an echocardiogram on October 10 which showed an ejection fraction of 20%, normal RV size and systolic function. He was seen by Dr. Meléndez and the patient underwent single chamber defibrillator placement on October 14. Postprocedure chest x-ray showed small left apical pneumothorax measuring up to 1.4 cm. The patient had several chest x-rays since then and his last chest x-ray was performed this morning which showed unchanged left-sided apical pneumothorax measuring up to 1.6 cm. The pulmonary service was consulted due to abnormal chest x-ray findings. When seen the patient was on room air oxygen and appears in no acute respiratory distress. The patient denies any shortness of breath, nausea, vomiting or any GI symptoms. PAST MEDICAL HISTORY: The past medical history is significant for: 1. Nonischemic cardiomyopathy with an ejection fraction of 20%. 2. History of anxiety / depression. 3. History of PE. PAST SURGICAL HISTORY: 1. Status post defibrillator placement on October [address] Meléndez. 2. Previous cardiac catheterization. ALLERGIES: 1. IODINE. 2. FISH-CONTAINING PRODUCTS. FAMILY HISTORY: Coronary artery disease runs in the family. Father with throat cancer. SOCIAL HISTORY: Ex-smoker. In addition, the patient has a history of alcohol use. MEDICATIONS: The current medications include: 1. Aspirin. 2. Remeron. 3. Lasix. 4. Seroquel. 5. Thiamine. 6. Protonix. 7. Altace. 8. Imdur. 9. Digoxin. 10. Coreg. REVIEW OF SYSTEMS: The review of systems is as per the history of present illness, and the rest of the review of systems is unremarkable. PHYSICAL EXAMINATION: GENERAL: This is a 42-year-old male lying in bed in no acute respiratory distress. VITAL SIGNS: Temperature 98.0, pulse of 74, respiratory rate of 16, blood pressure of 100/68, sats 93% on room air. HEAD, EYES, EARS, NOSE, THROAT: Atraumatic, normocephalic Pupils equal, round and reactive to light and accommodation. Extraocular muscles intact. Conjunctivae are pink. Nonicteric sclerae. Oral mucosa within normal limits. NECK: The neck is supple. No jugular venous distention, adenopathy or thyromegaly. Trachea in the midline. CARDIOVASCULAR: Regular rate and rhythm. Normal S1-S2. No murmurs, rubs or gallops noted. PULMONARY: Bilateral equal air entry. No rales or wheezing. ABDOMEN: The abdomen is soft, nontender and no distention. Positive bowel sounds. EXTREMITIES: No cyanosis, clubbing or edema noted. NEUROLOGIC: No focal motor or sensory deficits. LABORATORY DATA: WBCs 16.4, hemoglobin 16, hematocrit 48, platelet count of 234,000. Sodium 136, potassium 3.7, chloride 101, carbon dioxide 24, BUN 30, creatinine 1.11, glucose 129. INR 1.3. PT 13. PTT 24.0. RADIOGRAPHIC STUDIES: Chest x-ray from this morning showed unchanged left-sided apical pneumothorax. IMPRESSION: 1. Left sided apical pneumothorax measuring 1.6 cm at the apex. 2. Status post AICD placement on October [address] Meléndez. 3. Nonischemic cardiomyopathy with an ejection fraction of 20%. 4. Mild elevation in troponins. 5. History of PE on Xarelto. RECOMMENDATIONS: 1. Chest x-ray findings reviewed which showed left-sided apical pneumothorax 1.6 cm which is unchanged compared to several chest x-ray studies that have been done for the past few days since October 14. At this time will hold off on any procedures as the patient is asymptomatic and his pneumothorax size is than 2 cm. The case discussed was discussed with Dr. Anderson as well. We will place on oxygen to maintain sats above 92% and bronchodilators in the form of DuoNeb. We will repeat the chest x-ray in the next 24 hours. If the patient becomes symptomatic or if there is any increase in the size of the pneumothorax, will proceed with a pigtail catheter insertion. Further recommendations will be based on the hospital course. MD SUDHA Acuña/CHRIS /3:05 PM /4:57 PM
[2017-10-18] MEDS: MIRTAZAPINE ODT 30 MG TAB PO SCH (21:26)
[2017-10-18] MEDS: ACETAMINOPHEN/CODEINE 300 MG/30 MG TAB PO PRN (21:27)
[2017-10-18] MEDS: QUEtiapine FUMARATE 25 MG TAB PO SCH (21:27)
[2017-10-19] VITALS (23 sets, daily range): BP systolic 91–114; BP diastolic 60–71; PULSE 54–80; RESP 16–18; TEMP 97.7–98.7; O2SAT 97–100
[2017-10-19] MEDS: SODIUM CHLOR 0.9% 1000 ML INJ 1,000 ML IV SCH (02:30)
[2017-10-19] MEDS: RESP: ALBUTEROL 2.5 MG/IPRATROPIUM 0.5 MG NEB (SCH) NEB ×5 (03:26→21:51)
[2017-10-19] MEDS: ACETAMINOPHEN/CODEINE 300 MG/30 MG TAB PO PRN (04:59)
--- NOTE | 2017-10-19 05:03 | RADRPT ---
EXAM DATE/TIME: 10/19/2017 04:49 [facility] COMPARISON: CHEST SINGLE AP, October 18, 2017, 8:12. CHEST PA & LAT, October 15, 2017, 10:21. INDICATIONS : Shortness of breath, possible pneumothorax. MEDICAL HISTORY : Congestive heart failure. Cardiovascular disease. Chronic obstructive pulmonary disease. SURGICAL HISTORY : Pacemaker. ENCOUNTER: Subsequent ACUITY: 1 week PAIN SCORE: 10/10 LOCATION: Bilateral chest FINDINGS: There continues to be a small left apical pneumothorax measuring 1.9 cm in diameter. This is slightly increased compared to the prior exam. Otherwise, no new changes are seen with the appearance of the heart or lung cruz. No acute pulmonary infiltrates. The left-sided pacemaker remains in place. Ther e are no pleural effusions. CONCLUSION: Small left apical pneumothorax mildly increased in size compared to the prior study. Otherwise, no other new or significant changes. Yao Renterai MD on October 19, 2017 at 4:58 Board Certified Radiologist. This report was verified electronically.
[2017-10-19] MEDS: SODIUM CHLORIDE 0.9% FLUSH 10 ML FLUSH IV FLUSH SCH ×4 (09:00→20:10)
[2017-10-19] MEDS: PANTOPRAZOLE SOD 20 MG DELAYED RELEASE TAB PO SCH (09:09)
[2017-10-19] MEDS: ASPIRIN EC 81 MG TABEC PO SCH (09:09)
[2017-10-19] MEDS: ISOSORBIDE MONONITRATE 30 MG TAB PO SCH (09:09)
[2017-10-19] MEDS: FUROSEMIDE 40 MG/4 ML VIAL IV PUSH SCH ×2 (09:09→17:06)
[2017-10-19] MEDS: THIAMINE HCL 100 MG TAB PO SCH (09:09)
[2017-10-19] MEDS: DIGOXIN 0.25 MG TAB PO SCH (09:10)
[2017-10-19] MEDS: RAMIPRIL 5 MG CAP PO SCH (09:10)
[2017-10-19] MEDS: CARVEDILOL 12.5 MG TAB PO SCH ×2 (09:10→20:10)
--- NOTE | 2017-10-19 09:12 | HHI.PR ---
Subjective Remarks No events overnight. On room air oxygen when seen. CXR this morning showed small left apical PTX Objective Vital Signs Vital Signs Date Time Temp Pulse Resp B/P (MAP) Pulse Ox O2 Delivery O2 Flow Rate FiO2 10/19/17 07:58 98.0 54 18 91/60 (70) 100 10/19/17 06:05 16 10/19/17 06:04 64 10/19/17 05:04 66 10/19/17 04:00 60 10/19/17 03:00 98.1 60 16 104/71 (82) 100 10/19/17 03:00 66 10/19/17 02:06 62 10/19/17 01:00 70 10/19/17 00:00 68 10/18/17 23:00 98.0 63 16 93/58 (70) 100 10/18/17 23:00 68 10/18/17 22:30 16 10/18/17 22:00 74 10/18/17 21:00 74 10/18/17 20:00 74 10/18/17 19:00 98.7 79 16 101/65 (77) 100 10/18/17 19:00 76 10/18/17 16:42 98.0 78 109/60 (76) 98 10/18/17 16:00 76 10/18/17 15:39 76 10/18/17 13:00 74 10/18/17 12:00 80 10/18/17 11:00 60 10/18/17 11:00 98.0 61 100/68 (79) 93 10/18/17 10:00 61 I/O 10/18/17 10/18/17 10/18/17 10/19/17 10/19/17 10/19/17 07:00 15:00 23:00 07:00 15:00 23:00 Intake Total 120 ml 360 ml Output Total 100 ml Balance 120 ml 260 ml Intake Oral 120 ml 360 ml Output Urine Total 100 ml # Voids 2 Result Diagram: 10/15/1745210/15/17452 Other Results Last Impressions Chest X-Ray 10/19/17 0600 Signed Impressions: Service Date/Time: Thursday, October 19, 2017 04:49 - CONCLUSION: Small left apical pneumothorax mildly increased in size compared to the prior study. Otherwise, no other new or significant changes. Yao Renteria MD Objective Remarks GENERAL: Patient is lying in bed inNAD SKIN: Warm and dry. HEAD: Normocephalic. EYES: No scleral icterus. No injection or drainage. NECK: Supple, trachea midline. No JVD or lymphadenopathy. CARDIOVASCULAR: Regular rate and rhythm without murmurs, gallops, or rubs. RESPIRATORY: Breath sounds equal bilaterally. No accessory muscle use. GASTROINTESTINAL: Abdomen soft, non-tender, nondistended. MUSCULOSKELETAL: No cyanosis, or edema. BACK: Nontender without obvious deformity. No CVA tenderness. Neuro: Awake and alert A/P Assessment and Plan 1. Small left sided apical pneumothorax 2. Status post AICD placement on October [address] Meléndez. 3. Nonischemic cardiomyopathy with an ejection fraction of 20%. 4. Mild elevation in troponins. 5. History of PE Plan Oxygen to keep sat >92% Bronchodilators CXR today showed left-sided apical pneumothorax with no significant changes. Patient is asymptomatic and his pneumothorax size is < 2 cm. No intervention at this time Will repeat CXR tomorrow If patient becomes symptomatic or if there is any increase in the size of the pneumothorax will proceed with a pigtail catheter insertion. Continue treatment plan. Discussed with nursing staff. Viki Isidro MD Oct 19, 2017 09:12
--- NOTE | 2017-10-19 16:31 | HHI.PR ---
Subjective Remarks This is a pleasant 42 y/o male with Cardiomyopathy, who is followed due to Chest pain, Developed Pneumothorax after AICD placement, he requested to go to SNF at discharge. 10/19: Stable seen in his bedroom, seen by transition of care specialist recommended to continue Oxygen to keep O2 Saturation over 92%, Pneumothorax size less than two Cm. no intervention at this time, recommended to repeat CXR in am tomorrow probable Pigtail catheter if needed. Objective Vital Signs Date Time Temp Pulse Resp B/P (MAP) Pulse Ox O2 Delivery O2 Flow Rate FiO2 10/19/17 12:00 97.7 63 16 102/63 (76) 100 10/19/17 09:18 99 Nasal Cannula 2.00 10/19/17 07:58 98.0 54 18 91/60 (70) 100 10/19/17 06:05 16 10/19/17 06:04 64 10/19/17 05:04 66 10/19/17 04:00 60 10/19/17 03:00 98.1 60 16 104/71 (82) 100 10/19/17 03:00 66 10/19/17 02:06 62 10/19/17 01:00 70 10/19/17 00:00 68 10/18/17 23:00 98.0 63 16 93/58 (70) 100 10/18/17 23:00 68 10/18/17 22:30 16 10/18/17 22:00 74 10/18/17 21:00 74 10/18/17 20:00 74 10/18/17 19:00 98.7 79 16 101/65 (77) 100 10/18/17 19:00 76 10/18/17 16:42 98.0 78 109/60 (76) 98 I/O 10/18/17 10/18/17 10/18/17 10/19/17 10/19/17 10/19/17 07:00 15:00 23:00 07:00 15:00 23:00 Intake Total 120 ml 360 ml Output Total 100 ml Balance 120 ml 260 ml Intake Oral 120 ml 360 ml Output Urine Total 100 ml # Voids 2 Result Diagram: 10/15/1745210/15/17452 Imaging Last Impressions Chest X-Ray 10/19/17 06 Signed Impressions: Service Date/Time: Thursday, October 19, 2017 04:49 - CONCLUSION: Small left apical pneumothorax mildly increased in size compared to the prior study. Otherwise, no other new or significant changes. Yao Renteria MD Procedures 10/14/2017 AICD placement - single chamber defibrillator implantation 1. Implanted Hardware: The implanted defibrillator generator is a [employer], model number [id number], serial number [id number]. The right ventricular pacing, sensing and defibrillatory lead is a [employer] model number [id number], serial number [id number]. 2. Thresholds: The right ventricular pacing threshold in the bipolar mode was 0.8 volts at 0.5 milliseconds, lead impedance 755 ohms and R-wave at 14.4 mV. Sensing P wave 3.1 mv. The right ventricular defibrillatory threshold less than 20 joules shocking, impedance 79 ohms, charge time 4.0 seconds. 3. Settings: The device set in VVI 40 defibrillatory portion for two zones, one zone for ventricular tachycardia between 180 and 250 beats per minute. Initial therapy consists of one burst of ATP, one ramp, 81%, 10 pulse, 10 millisecond decremental, followed by 20, then 30 and all subsequent shocks at 30 joules defibrillatory shock, the second zone for ventricular fibrillation above 250 beats per minute, first therapy at 30 and all subsequent shocks at 40 joules defibrillatory shock. 10/10/2017 echocardiogram Normal left ventricular size. The left ventricular systolic function is severely reduced with an estimated ejection fraction less than 20%. Mild mitral valve regurgitation. No aortic valve regurgitation. No aortic valve stenosis. There is mild tricuspid valve regurgitation. The estimated pulmonary arterial pressure is 37.7 mmHg. Other Results Laboratory Tests Test 10/09/17 21:41 10/10/17 10:27 10/15/17 04:53 Platelet Estimate NORMAL Platelet Morphology Comment NORMAL Prothrombin Time 13.0 SEC Prothromb Time International Ratio 1.3 RATIO Activated Partial Thromboplast Time 24.2 SEC Blood Urea Nitrogen 25 MG/DL 30 MG/DL Creatinine 1.37 MG/DL 1.11 MG/DL Random Glucose 85 MG/DL 129 MG/DL Total Protein 7.1 GM/DL Albumin 3.5 GM/DL 3.1 GM/DL Calcium Level 8.9 MG/DL 8.5 MG/DL Alkaline Phosphatase 76 U/L Aspartate Amino Transf (AST/SGOT) 183 U/L Alanine Aminotransferase (ALT/SGPT) 84 U/L Total Bilirubin 3.1 MG/DL Sodium Level 138 MEQ/L 136 MEQ/L Potassium Level 4.6 MEQ/L 3.7 MEQ/L Chloride Level 109 MEQ/L 101 MEQ/L Carbon Dioxide Level 16.0 MEQ/L 24.9 MEQ/L B-Type Natriuretic Peptide 2925 PG/ML Total Creatine Kinase 351 U/L Creatine Kinase MB 15.9 NG/ML Creatine Kinase MB % 4.5 % Troponin I 0.11 NG/ML White Blood Count 16.4 TH/MM3 Red Blood Count 5.42 MIL/MM3 Hemoglobin 16.0 GM/DL Hematocrit 48.5 % Mean Corpuscular Volume 89.6 FL Mean Corpuscular Hemoglobin 29.6 PG Mean Corpuscular Hemoglobin Concent 33.0 % Red Cell Distribution Width 14.2 % Platelet Count 234 TH/MM3 Mean Platelet Volume 10.4 FL Neutrophils (%) (Auto) 84.8 % Lymphocytes (%) (Auto) 7.2 % Monocytes (%) (Auto) 7.8 % Eosinophils (%) (Auto) 0.0 % Basophils (%) (Auto) 0.2 % Neutrophils # (Auto) 13.9 TH/MM3 Lymphocytes # (Auto) 1.2 TH/MM3 Monocytes # (Auto) 1.3 TH/MM3 Eosinophils # (Auto) 0.0 TH/MM3 Basophils # (Auto) 0.0 TH/MM3 CBC Comment AUTO DIFF Differential Comment AUTO DIFF CONFIRMED Acanthocytes Phosphorus Level 2.7 MG/DL Magnesium Level 1.7 MG/DL Anion Gap 10 MEQ/L Estimat Glomerular Filtration Rate 88 ML/MIN Objective Remarks GENERAL: Alert, oriented 3, NAD. SKIN: Warm and dry. HEAD: Normocephalic. EYES: No scleral icterus. No injection or drainage. NECK: Supple, trachea midline. No JVD or lymphadenopathy. CARDIOVASCULAR: Regular rate and rhythm without murmurs, gallops, or rubs. RESPIRATORY: Breath sounds equal bilaterally. No accessory muscle use. GASTROINTESTINAL: Abdomen soft, non-tender, nondistended. MUSCULOSKELETAL: No cyanosis, or edema. BACK: Nontender without obvious deformity. No CVA tenderness. Medications and IVs Current Medications Medications (Trade) Dose Ordered Sig/Talib Route Start Time Stop Time Status Last Admin (NS Flush) 2 ml BID IV FLUSH 10/10/17 09:00 10/18/17 21:26 (NS Flush) 2 ml UNSCH PRN IV FLUSH 10/09/17 23:30 (Coreg) 12.5 mg BID PO 10/10/17 09:00 10/19/17 09:10 (Lanoxin) 0.25 mg DAILY PO 10/10/17 09:00 10/19/17 09:10 (Imdur) 30 mg DAILY PO 10/10/17 09:00 10/19/17 09:09 (Remeron Soltab Odt) 30 mg HS PO 10/10/17 21:00 10/18/17 21:26 (SEROquel) 25 mg HS PO 10/10/17 21:00 10/18/17 21:27 (Altace) 5 mg DAILY PO 10/10/17 09:00 10/19/17 09:10 (Protonix) 20 mg DAILY PO 10/10/17 09:00 10/19/17 09:09 (Morphine Inj) 1 mg Q4H PRN IV PUSH 10/10/17 11:15 10/16/17 02:05 (Nitroglycerin 2% Oint) 0.5 inch Q6HR PRN TOPICAL 10/10/17 11:15 (Ecotrin Ec) 81 mg DAILY PO 10/11/17 09:00 10/19/17 09:09 (Lasix Inj) 40 mg BID@ IV PUSH 10/10/17 18:00 10/19/17 09:09 (Vitamin B1) 100 mg DAILY PO 10/10/17 12:00 10/19/17 09:09 (Romazicon Inj) 0.2 mg Q1M PRN IV PUSH 10/10/17 11:30 (Ativan) 1 mg Q4H PRN PO 10/10/17 11:30 (Ativan Inj) 1 mg Q4H PRN IV PUSH 10/10/17 11:30 (Ativan) 2 mg Q2H PRN PO 10/10/17 11:30 (Ativan Inj) 2 mg Q2H PRN IV PUSH 10/10/17 11:30 (Ativan Inj) 2 mg Q1H PRN IV PUSH 10/10/17 11:30 (Ativan Inj) 2 mg Q15M PRN IV PUSH 10/10/17 11:30 (Haldol Inj) 2 mg Q15M PRN IM 10/10/17 11:30 (Zofran Inj) 4 mg Q4H PRN IV PUSH 10/14/17 10:30 10/15/17 13:10 (Tylenol-Codeine #3) 1 tab Q4H PRN PO 10/14/17 10:30 10/18/17 21:27 (Tylenol-Codeine #3) 2 tab Q4H PRN PO 10/14/17 10:30 10/19/17 04:59 (NS Flush) 2 ml BID IV FLUSH 10/14/17 21:00 10/17/17 20:29 (NS Flush) 2 ml UNSCH PRN IV FLUSH 10/14/17 10:30 (Duoneb Neb) 1 ampule Q4HR NEB NEB 10/18/17 16:00 10/19/17 12:41 (Duoneb Neb) 1 ampule Q2HR NEB PRN NEB 10/18/17 15:15 A/P Assessment and Plan 42-year-old AA male with a past medical history significant for nonischemic cardiomyopathy (echo 12/16/16 with an EF of 20-25%), hypertension, alcohol abuse , tobacco abuse presented to the emergency department with complaints of intermittent severe 7/10 stabbing and crushing substernal chest pain that radiated to the right and left chest. He was subsequently evaluated by cardiology. - Chest pain Improved. - Elevated Troponin - equivocal troponin level. - Non-ischemic Cardiomyopathy with EF around 20%. - Dr. Meléndez consulted. AICD placement 10/14/2017. - Small left sided apical pneumothorax - Repeat CXR today shows further increase in pneumothorax. - I discussed with Dr. Meléndez on 10/16/2017 who recommended that we get a IR consult. - I discussed with IR - ideally, they would like to do CXR serially. However , if patient is discharged, he may not be able to come back due to transportation issues. - Discussed with Case management. We might be able to arrange SNF. -as per commissioning specialist to continue Bronchodilator, Mucolytic and incentive spirometry, probable Pigtail depend of new CXR for tomorrow. - Hypotension - controlled. Acute on Chronic CHF, systolic EF = 20-25% as of December 2016 continue Lasix. History of Pulmonary Embolism, DVT. - I looked through chart. His DVT is old and in fact in a previous hospitalization, he was discharged with discontinuation of Xarelto. Possible early pneumonia - Received 6 days of Azithromycin. Currently on Cephalexin post procedure. - stopped Azithromycin. Full code. was on Xarelto now on SCDs. Discharge Planning awaiting final by transition of care specialist for discharge. Dillan Lewis MD Oct 19, 2017 16:31
[2017-10-19] MEDS: QUEtiapine FUMARATE 25 MG TAB PO SCH (20:10)
[2017-10-19] MEDS: MIRTAZAPINE ODT 30 MG TAB PO SCH (20:10)
[2017-10-20] VITALS (28 sets, daily range): BP systolic 105–125; BP diastolic 65–83; PULSE 58–74; RESP 16–20; TEMP 97.7–98.7; O2SAT 98–100
[2017-10-20] MEDS: RESP: ALBUTEROL 2.5 MG/IPRATROPIUM 0.5 MG NEB (SCH) NEB ×7 (00:32→23:05)
--- NOTE | 2017-10-20 04:57 | RADRPT ---
EXAM DATE/TIME: 10/20/2017 04:03 [facility] COMPARISON: CHEST SINGLE AP, October 18, 2017, 8:12. INDICATIONS : Shortness of breath, possible pneumothorax left lung. MEDICAL HISTORY : Congestive heart failure. Cardiovascular disease. Chronic obstructive pulmonary disease. SURGICAL HISTORY : Pacemaker. ENCOUNTER: Subsequent ACUITY: 1 week PAIN SCORE: 10/10 LOCATION: Bilateral chest FINDINGS: The heart size is normal. There is a pacing device in place from the left subclavian approach. There continues to be a mild pneumothorax over the left apex measuring 1.5 cm. This is unchanged from the p rior exam. Calcified granulomas are seen in the right upper lung. CONCLUSION: Persistent left pneumothorax measuring up to 1.5 cm which is unchanged from the prior exam. Satya Feldman MD on October 20, 2017 at 4:53 Board Certified Radiologist. This report was verified electronically.
[2017-10-20] MEDS: THIAMINE HCL 100 MG TAB PO SCH (10:48)
[2017-10-20] MEDS: PANTOPRAZOLE SOD 20 MG DELAYED RELEASE TAB PO SCH (10:48)
[2017-10-20] MEDS: FUROSEMIDE 40 MG/4 ML VIAL IV PUSH SCH (10:48)
[2017-10-20] MEDS: ISOSORBIDE MONONITRATE 30 MG TAB PO SCH (10:49)
[2017-10-20] MEDS: SODIUM CHLORIDE 0.9% FLUSH 10 ML FLUSH IV FLUSH SCH ×3 (10:49→22:39)
[2017-10-20] MEDS: DIGOXIN 0.25 MG TAB PO SCH (10:49)
[2017-10-20] MEDS: CARVEDILOL 12.5 MG TAB PO SCH ×2 (10:49→22:39)
[2017-10-20] MEDS: RAMIPRIL 5 MG CAP PO SCH (10:49)
[2017-10-20] MEDS: ASPIRIN EC 81 MG TABEC PO SCH (10:49)
--- NOTE | 2017-10-20 14:55 | HHI.PR ---
Subjective Remarks This is a pleasant 42 y/o male with Cardiomyopathy, who is followed due to Chest pain, Developed Pneumothorax after AICD placement, he requested to go to SNF at discharge. 10/19: Stable seen in his bedroom, seen by reconciliation specialist recommended to continue Oxygen to keep O2 Saturation over 92%, Pneumothorax size less than two Cm. no intervention at this time, recommended to repeat CXR in am tomorrow probable Pigtail catheter if needed. 10/20: seen in his bedroom, discussed with nurse Miss Barton and with corporate quality manager patient will need to go to SNF at discharge. no nausea, vomit or diarrhea new CXR with stable and Improving Pneumothorax. awaiting final by reconciliation specialist for discharge. Objective Vital Signs Date Time Temp Pulse Resp B/P (MAP) Pulse Ox O2 Delivery O2 Flow Rate FiO2 10/20/17 12:37 100 10/20/17 11:25 98.1 64 20 125/83 (97) 100 10/20/17 07:55 98.4 66 18 114/80 (91) 100 10/20/17 06:13 62 10/20/17 05:14 60 10/20/17 04:51 64 10/20/17 03:30 59 10/20/17 03:20 97.7 60 18 105/65 (78) 100 10/20/17 01:12 61 10/20/17 00:04 58 10/19/17 23:07 66 10/19/17 23:00 98.0 70 16 94/63 (73) 97 10/19/17 22:02 72 10/19/17 21:11 72 10/19/17 20:40 73 10/19/17 20:05 98.7 73 16 114/71 (85) 97 10/19/17 17:08 98.4 80 18 108/71 (83) 100 10/19/17 17:00 67 I/O 10/19/17 10/19/17 10/19/17 10/20/17 10/20/17 10/20/17 06:59 14:59 22:59 06:59 14:59 22:59 Intake Total 360 ml Output Total 100 ml 722 ml 375 ml Balance 260 ml -722 ml -375 ml Intake Oral 360 ml Output Urine Total 100 ml 722 ml 375 ml # Voids 1 Imaging Last Impressions Chest X-Ray 10/20/17 0600 Signed Impressions: Service Date/Time: Friday, October 20, 2017 04:03 - CONCLUSION: Persistent left pneumothorax measuring up to 1.5 cm which is unchanged from the prior exam. Satya Feldman MD Procedures 10/14/2017 AICD placement - single chamber defibrillator implantation 1. Implanted Hardware: The implanted defibrillator generator is a [employer], model number 297923, serial number [id number]. The right ventricular pacing, sensing and defibrillatory lead is a [employer] model number 905735, serial number [id number]. 2. Thresholds: The right ventricular pacing threshold in the bipolar mode was 0.8 volts at 0.5 milliseconds, lead impedance 755 ohms and R-wave at 14.4 mV. Sensing P wave 3.1 mv. The right ventricular defibrillatory threshold less than 20 joules shocking, impedance 79 ohms, charge time 4.0 seconds. 3. Settings: The device set in VVI 40 defibrillatory portion for two zones, one zone for ventricular tachycardia between 180 and 250 beats per minute. Initial therapy consists of one burst of ATP, one ramp, 81%, 10 pulse, 10 millisecond decremental, followed by 20, then 30 and all subsequent shocks at 30 joules defibrillatory shock, the second zone for ventricular fibrillation above 250 beats per minute, first therapy at 30 and all subsequent shocks at 40 joules defibrillatory shock. 10/10/2017 echocardiogram Normal left ventricular size. The left ventricular systolic function is severely reduced with an estimated ejection fraction less than 20%. Mild mitral valve regurgitation. No aortic valve regurgitation. No aortic valve stenosis. There is mild tricuspid valve regurgitation. The estimated pulmonary arterial pressure is 37.7 mmHg. Other Results Laboratory Tests Test 10/09/17 21:41 10/10/17 10:27 10/15/17 04:53 Platelet Estimate NORMAL Platelet Morphology Comment NORMAL Prothrombin Time 13.0 SEC Prothromb Time International Ratio 1.3 RATIO Activated Partial Thromboplast Time 24.2 SEC Blood Urea Nitrogen 25 MG/DL 30 MG/DL Creatinine 1.37 MG/DL 1.11 MG/DL Random Glucose 85 MG/DL 129 MG/DL Total Protein 7.1 GM/DL Albumin 3.5 GM/DL 3.1 GM/DL Calcium Level 8.9 MG/DL 8.5 MG/DL Alkaline Phosphatase 76 U/L Aspartate Amino Transf (AST/SGOT) 183 U/L Alanine Aminotransferase (ALT/SGPT) 84 U/L Total Bilirubin 3.1 MG/DL Sodium Level 138 MEQ/L 136 MEQ/L Potassium Level 4.6 MEQ/L 3.7 MEQ/L Chloride Level 109 MEQ/L 101 MEQ/L Carbon Dioxide Level 16.0 MEQ/L 24.9 MEQ/L B-Type Natriuretic Peptide 2925 PG/ML Total Creatine Kinase 351 U/L Creatine Kinase MB 15.9 NG/ML Creatine Kinase MB % 4.5 % Troponin I 0.11 NG/ML White Blood Count 16.4 TH/MM3 Red Blood Count 5.42 MIL/MM3 Hemoglobin 16.0 GM/DL Hematocrit 48.5 % Mean Corpuscular Volume 89.6 FL Mean Corpuscular Hemoglobin 29.6 PG Mean Corpuscular Hemoglobin Concent 33.0 % Red Cell Distribution Width 14.2 % Platelet Count 234 TH/MM3 Mean Platelet Volume 10.4 FL Neutrophils (%) (Auto) 84.8 % Lymphocytes (%) (Auto) 7.2 % Monocytes (%) (Auto) 7.8 % Eosinophils (%) (Auto) 0.0 % Basophils (%) (Auto) 0.2 % Neutrophils # (Auto) 13.9 TH/MM3 Lymphocytes # (Auto) 1.2 TH/MM3 Monocytes # (Auto) 1.3 TH/MM3 Eosinophils # (Auto) 0.0 TH/MM3 Basophils # (Auto) 0.0 TH/MM3 CBC Comment AUTO DIFF Differential Comment AUTO DIFF CONFIRMED Acanthocytes Phosphorus Level 2.7 MG/DL Magnesium Level 1.7 MG/DL Anion Gap 10 MEQ/L Estimat Glomerular Filtration Rate 88 ML/MIN Objective Remarks GENERAL: Alert, oriented 3, NAD. SKIN: Warm and dry. HEAD: Normocephalic. EYES: No scleral icterus. No injection or drainage. NECK: Supple, trachea midline. No JVD or lymphadenopathy. CARDIOVASCULAR: Regular rate and rhythm without murmurs, gallops, or rubs. RESPIRATORY: Breath sounds equal bilaterally. No accessory muscle use. GASTROINTESTINAL: Abdomen soft, non-tender, nondistended. MUSCULOSKELETAL: No cyanosis, or edema. BACK: Nontender without obvious deformity. No CVA tenderness. Medications and IVs Current Medications Medications (Trade) Dose Ordered Sig/Talib Route Start Time Stop Time Status Last Admin (NS Flush) 2 ml BID IV FLUSH 10/10/17 09:00 10/20/17 10:49 (NS Flush) 2 ml UNSCH PRN IV FLUSH 10/09/17 23:30 (Coreg) 12.5 mg BID PO 10/10/17 09:00 10/20/17 10:49 (Lanoxin) 0.25 mg DAILY PO 10/10/17 09:00 10/20/17 10:49 (Imdur) 30 mg DAILY PO 10/10/17 09:00 10/20/17 10:49 (Remeron Soltab Odt) 30 mg HS PO 10/10/17 21:00 10/19/17 20:10 (SEROquel) 25 mg HS PO 10/10/17 21:00 10/19/17 20:10 (Altace) 5 mg DAILY PO 10/10/17 09:00 10/20/17 10:49 (Protonix) 20 mg DAILY PO 10/10/17 09:00 10/20/17 10:48 (Morphine Inj) 1 mg Q4H PRN IV PUSH 10/10/17 11:15 10/16/17 02:05 (Nitroglycerin 2% Oint) 0.5 inch Q6HR PRN TOPICAL 10/10/17 11:15 (Ecotrin Ec) 81 mg DAILY PO 10/11/17 09:00 10/20/17 10:49 (Lasix Inj) 40 mg BID@ IV PUSH 10/10/17 18:00 10/20/17 10:48 (Vitamin B1) 100 mg DAILY PO 10/10/17 12:00 10/20/17 10:48 (Romazicon Inj) 0.2 mg Q1M PRN IV PUSH 10/10/17 11:30 (Ativan) 1 mg Q4H PRN PO 10/10/17 11:30 (Ativan Inj) 1 mg Q4H PRN IV PUSH 10/10/17 11:30 (Ativan) 2 mg Q2H PRN PO 10/10/17 11:30 (Ativan Inj) 2 mg Q2H PRN IV PUSH 10/10/17 11:30 (Ativan Inj) 2 mg Q1H PRN IV PUSH 10/10/17 11:30 (Ativan Inj) 2 mg Q15M PRN IV PUSH 10/10/17 11:30 (Haldol Inj) 2 mg Q15M PRN IM 10/10/17 11:30 (Zofran Inj) 4 mg Q4H PRN IV PUSH 10/14/17 10:30 10/15/17 13:10 (Tylenol-Codeine #3) 1 tab Q4H PRN PO 10/14/17 10:30 10/18/17 21:27 (Tylenol-Codeine #3) 2 tab Q4H PRN PO 10/14/17 10:30 10/19/17 04:59 (NS Flush) 2 ml BID IV FLUSH 10/14/17 21:00 10/20/17 10:49 (NS Flush) 2 ml UNSCH PRN IV FLUSH 10/14/17 10:30 (Duoneb Neb) 1 ampule Q4HR NEB NEB 10/18/17 16:00 10/20/17 12:00 (Duoneb Neb) 1 ampule Q2HR NEB PRN NEB 10/18/17 15:15 A/P Assessment and Plan 42-year-old AA male with a past medical history significant for nonischemic cardiomyopathy (echo 12/16/16 with an EF of 20-25%), hypertension, alcohol abuse , tobacco abuse presented to the emergency department with complaints of intermittent severe 7/10 stabbing and crushing substernal chest pain that radiated to the right and left chest. He was subsequently evaluated by cardiology. - Chest pain Improved. - Elevated Troponin - equivocal troponin level. - Non-ischemic Cardiomyopathy with EF around 20%. - Dr. Meléndez consulted. AICD placement 10/14/2017. - Small left sided apical pneumothorax - CXR improving, today up to 1.5 cm, initially asked for IR consult, at this time followed by reconciliation specialist awaiting final for discharge. - continue Bronchodilator, Mucolytic and Incentive spirometry. Acute on Chronic CHF, systolic EF = 20-25% as of December 2016 continue Lasix. stable. switch Lasix IV to by mouth, asked for Potassium and magnesium now. History of Pulmonary Embolism, DVT. - I looked through chart. His DVT is old and in fact in a previous hospitalization, he was discharged with discontinuation of Xarelto. Possible early pneumonia - Received 6 days of Azithromycin. Currently on Cephalexin post procedure. - stopped Azithromycin. Full code. was on Xarelto now on SCDs. Discharge Planning awaiting final by reconciliation specialist for discharge. Discussed with nurse for SNF placement Dillan Lewis MD Oct 20, 2017 14:55
[2017-10-20] MEDS: FUROSEMIDE 40 MG TAB PO SCH (17:46)
[2017-10-20 17:54] LABS: MAGNESIUM 1.7 MG/DL (1.5-2.5)
--- NOTE | 2017-10-20 18:08 | HHI.PR ---
Subjective Remarks alert no sob at rest Objective Vital Signs Date Time Temp Pulse Resp B/P (MAP) Pulse Ox O2 Delivery O2 Flow Rate FiO2 10/20/17 17:17 67 10/20/17 16:00 62 10/20/17 15:51 98.2 62 18 105/74 (84) 100 10/20/17 15:00 68 10/20/17 14:00 68 10/20/17 13:00 74 10/20/17 12:37 100 10/20/17 12:00 66 10/20/17 11:25 98.1 64 20 125/83 (97) 100 10/20/17 11:00 68 10/20/17 09:00 62 10/20/17 08:00 60 10/20/17 07:55 98.4 66 18 114/80 (91) 100 10/20/17 07:00 63 10/20/17 06:13 62 10/20/17 05:14 60 10/20/17 04:51 64 10/20/17 03:30 59 10/20/17 03:20 97.7 60 18 105/65 (78) 100 10/20/17 01:12 61 10/20/17 00:04 58 10/19/17 23:07 66 10/19/17 23:00 98.0 70 16 94/63 (73) 97 10/19/17 22:02 72 10/19/17 21:11 72 10/19/17 20:40 73 10/19/17 20:05 98.7 73 16 114/71 (85) 97 I/O 10/19/17 10/19/17 10/19/17 10/20/17 10/20/17 10/20/17 07:00 15:00 23:00 07:00 15:00 23:00 Intake Total 360 ml 720 ml Output Total 100 ml 722 ml 375 ml 700 ml Balance 260 ml -722 ml -375 ml 20 ml Intake Oral 360 ml 720 ml Output Urine Total 100 ml 722 ml 375 ml 700 ml # Voids 1 # Bowel Movements 1 Result Diagram: 10/20/17 1527 Procedures 10/14/2017 AICD placement - single chamber defibrillator implantation 1. Implanted Hardware: The implanted defibrillator generator is a [employer], model number 776676, serial number [id number]. The right ventricular pacing, sensing and defibrillatory lead is a [employer] model number 309316, serial number [id number]. 2. Thresholds: The right ventricular pacing threshold in the bipolar mode was 0.8 volts at 0.5 milliseconds, lead impedance 755 ohms and R-wave at 14.4 mV. Sensing P wave 3.1 mv. The right ventricular defibrillatory threshold less than 20 joules shocking, impedance 79 ohms, charge time 4.0 seconds. 3. Settings: The device set in VVI 40 defibrillatory portion for two zones, one zone for ventricular tachycardia between 180 and 250 beats per minute. Initial therapy consists of one burst of ATP, one ramp, 81%, 10 pulse, 10 millisecond decremental, followed by 20, then 30 and all subsequent shocks at 30 joules defibrillatory shock, the second zone for ventricular fibrillation above 250 beats per minute, first therapy at 30 and all subsequent shocks at 40 joules defibrillatory shock. 10/10/2017 echocardiogram Normal left ventricular size. The left ventricular systolic function is severely reduced with an estimated ejection fraction less than 20%. Mild mitral valve regurgitation. No aortic valve regurgitation. No aortic valve stenosis. There is mild tricuspid valve regurgitation. The estimated pulmonary arterial pressure is 37.7 mmHg. Objective Remarks GENERAL: SKIN: Warm and dry. HEAD: Atraumatic. Normocephalic. EYES: Pupils equal and round. No scleral icterus. No injection or drainage. ENT: No nasal bleeding or discharge. Mucous membranes pink and moist. NECK: Trachea midline. No JVD. CARDIOVASCULAR: Regular rate and rhythm. RESPIRATORY: No accessory muscle use. Clear to auscultation. Breath sounds equal bilaterally. GASTROINTESTINAL: Abdomen soft, non-tender, nondistended. Hepatic and splenic margins not palpable. MUSCULOSKELETAL: Extremities without clubbing, cyanosis, or edema. No obvious deformities. NEUROLOGICAL: Awake and alert. No obvious cranial nerve deficits. Motor grossly within normal limits. Five out of 5 muscle strength in the arms and legs. Normal speech. PSYCHIATRIC: Appropriate mood and affect; insight and judgment normal. Assessment and Plan Assessment and Plan small apical PNX POST ICD PLACEMENT [facility]BS[facility] F/U Marilou Charlton MD Oct 20, 2017 18:07
[2017-10-20] MEDS: MIRTAZAPINE ODT 30 MG TAB PO SCH (22:39)
[2017-10-20] MEDS: QUEtiapine FUMARATE 25 MG TAB PO SCH (22:39)
[2017-10-21] VITALS (16 sets, daily range): BP systolic 85–103; BP diastolic 48–69; PULSE 52–108; RESP 14–16; TEMP 97.4–98.8; O2SAT 97–100
[2017-10-21] MEDS: ACETAMINOPHEN/CODEINE 300 MG/30 MG TAB PO PRN (02:40)
[2017-10-21] MEDS: RESP: ALBUTEROL 2.5 MG/IPRATROPIUM 0.5 MG NEB (SCH) NEB ×4 (03:14→15:20)
[2017-10-21 06:47] LABS: AUTOMATED NEUTROPHIL # 4.2 TH/MM3 (1.8-7.7); BASOPHIL # 0.1 TH/MM3 (0-0.2); BASOPHIL % 0.8 % (0.0-2.0); EOSINOPHIL # 0.4 TH/MM3 (0-0.4); EOSINOPHIL % 4.7 % (0.0-4.0); HEMOGLOBIN 13.5 GM/DL (13.0-17.0); LYMPH % 32.1 % (9.0-44.0); LYMPHOCYTE # 2.7 TH/MM3 (1.0-4.8); MEAN CELL VOLUME 87.1 FL (80.0-100.0); MEAN CORPUSCULAR HEMOGLOBIN 29.3 PG (27.0-34.0); MEAN CORPUSCULAR HGB CONC 33.7 % (32.0-36.0); MEAN PLATELET VOLUME 9.7 FL (7.0-11.0); MONO % 12.8 % (0.0-8.0); MONOCYTE # 1.1 TH/MM3 (0-0.9); NEUT % 49.6 % (16.0-70.0); PLATELET COUNT 225 TH/MM3 (150-450); RED CELL DISTRIBUTION WIDTH 13.6 % (11.6-17.2); WHITE BLOOD COUNT 8.5 TH/MM3 (4.0-11.0)
[2017-10-21 06:55] LABS: BICARBONATE 29.9 MEQ/L (21.0-32.0); CALCIUM 9.1 MG/DL (8.5-10.1); CREATININE 0.81 MG/DL (0.60-1.30); MAGNESIUM 1.8 MG/DL (1.5-2.5); PHOSPHORUS 4.1 MG/DL (2.5-4.9)
--- NOTE | 2017-10-21 07:57 | HHI.PR ---
Subjective Remarks alert no sob at rest Objective Vital Signs Date Time Temp Pulse Resp B/P (MAP) Pulse Ox O2 Delivery O2 Flow Rate FiO2 10/21/17 06:00 52 10/21/17 05:00 60 10/21/17 04:00 98.5 62 16 85/48 (60) 99 10/21/17 04:00 62 10/21/17 03:00 60 10/21/17 02:00 60 10/21/17 01:00 63 10/21/17 00:00 98.8 70 16 103/53 (70) 100 10/21/17 00:00 60 10/20/17 23:00 60 10/20/17 22:00 64 10/20/17 21:00 66 10/20/17 20:00 98.7 69 16 108/66 (80) 100 10/20/17 20:00 66 10/20/17 19:41 98 21 10/20/17 19:00 66 10/20/17 18:18 68 10/20/17 17:17 67 10/20/17 16:00 62 10/20/17 15:51 98.2 62 18 105/74 (84) 100 10/20/17 15:00 68 10/20/17 14:00 68 10/20/17 13:00 74 10/20/17 12:37 100 10/20/17 12:00 66 10/20/17 11:25 98.1 64 20 125/83 (97) 100 10/20/17 11:00 68 10/20/17 09:00 62 10/20/17 08:00 60 I/O 10/20/17 10/20/17 10/20/17 10/21/17 10/21/17 10/21/17 07:00 15:00 23:00 07:00 15:00 23:00 Intake Total 720 ml 240 ml Output Total 375 ml 700 ml Balance -375 ml 20 ml 240 ml Intake Oral 720 ml 240 ml Output Urine Total 375 ml 700 ml # Voids 2 # Bowel Movements 1 1 Result Diagram: 10/21/17 0545 10/21/17 0545 Procedures 10/14/2017 AICD placement - single chamber defibrillator implantation 1. Implanted Hardware: The implanted defibrillator generator is a [employer], model number [id number], serial number [id number]. The right ventricular pacing, sensing and defibrillatory lead is a [employer] model number [id number], serial number [id number]. 2. Thresholds: The right ventricular pacing threshold in the bipolar mode was 0.8 volts at 0.5 milliseconds, lead impedance 755 ohms and R-wave at 14.4 mV. Sensing P wave 3.1 mv. The right ventricular defibrillatory threshold less than 20 joules shocking, impedance 79 ohms, charge time 4.0 seconds. 3. Settings: The device set in VVI 40 defibrillatory portion for two zones, one zone for ventricular tachycardia between 180 and 250 beats per minute. Initial therapy consists of one burst of ATP, one ramp, 81%, 10 pulse, 10 millisecond decremental, followed by 20, then 30 and all subsequent shocks at 30 joules defibrillatory shock, the second zone for ventricular fibrillation above 250 beats per minute, first therapy at 30 and all subsequent shocks at 40 joules defibrillatory shock. 10/10/2017 echocardiogram Normal left ventricular size. The left ventricular systolic function is severely reduced with an estimated ejection fraction less than 20%. Mild mitral valve regurgitation. No aortic valve regurgitation. No aortic valve stenosis. There is mild tricuspid valve regurgitation. The estimated pulmonary arterial pressure is 37.7 mmHg. Objective Remarks GENERAL: SKIN: Warm and dry. HEAD: Atraumatic. Normocephalic. EYES: Pupils equal and round. No scleral icterus. No injection or drainage. ENT: No nasal bleeding or discharge. Mucous membranes pink and moist. NECK: Trachea midline. No JVD. CARDIOVASCULAR: Regular rate and rhythm. RESPIRATORY: No accessory muscle use. Clear to auscultation. Breath sounds equal bilaterally. GASTROINTESTINAL: Abdomen soft, non-tender, nondistended. Hepatic and splenic margins not palpable. MUSCULOSKELETAL: Extremities without clubbing, cyanosis, or edema. No obvious deformities. NEUROLOGICAL: Awake and alert. No obvious cranial nerve deficits. Motor grossly within normal limits. Five out of 5 muscle strength in the arms and legs. Normal speech. PSYCHIATRIC: Appropriate mood and affect; insight and judgment normal. Assessment and Plan Assessment and Plan small apical PNX POST ICD PLACEMENT [facility] CHF PLAN OBSERVE F/U Marilou Charlton MD Oct 21, 2017 07:57
--- NOTE | 2017-10-21 09:12 | RADRPT ---
EXAM DATE/TIME: 10/21/2017 08:08 [place] COMPARISON: CHEST SINGLE AP, October 20, 2017, 4:03. INDICATIONS : Evaluate for pneumothorax. MEDICAL HISTORY : Cardiovascular disease. Chronic obstructive pulmonary disease. Congestive heart failure. SURGICAL HISTORY : Pacemaker. ENCOUNTER: Subsequent ACUITY: 2 weeks PAIN SCORE: 0/10 LOCATION: Bilateral chest FINDINGS: Is noted in see in: Pacemaker overlying the left hemithorax. Lung cruz are clear with no acute card iopulmonary process other than persistent left apical pneumothorax measuring 1.7 cm in width and no e vidence of tension CONCLUSION: Persistent stable small left apical pneumothorax Austyn Estes MD on October 21, 2017 at 9:07 Board Certified Radiologist. This report was verified electronically.
--- NOTE | 2017-10-21 09:26 | HHI.PR ---
Subjective Remarks This is a pleasant 42 y/o male with Cardiomyopathy, who is followed due to Chest pain, Developed Pneumothorax after AICD placement, he requested to go to SNF at discharge. 10/19: Stable seen in his bedroom, seen by public relations specialist recommended to continue Oxygen to keep O2 Saturation over 92%, Pneumothorax size less than two Cm. no intervention at this time, recommended to repeat CXR in am tomorrow probable Pigtail catheter if needed. 10/20: seen in his bedroom, discussed with nurse Miss Barton and with systems analysis manager patient will need to go to SNF at discharge. new CXR with stable and Improving Pneumothorax. awaiting final by public relations specialist for discharge. 10/21: Okay to discharge as per public relations specialist, no nausea, vomit or diarrhea. will go home with Outpatient Physical Therapy. Objective Vital Signs Date Time Temp Pulse Resp B/P (MAP) Pulse Ox O2 Delivery O2 Flow Rate FiO2 10/21/17 09:00 55 10/21/17 08:00 55 10/21/17 07:00 56 10/21/17 07:00 97.4 56 14 95/69 (78) 97 10/21/17 06:00 52 10/21/17 05:00 60 10/21/17 04:00 98.5 62 16 85/48 (60) 99 10/21/17 04:00 62 10/21/17 03:00 60 10/21/17 02:00 60 10/21/17 01:00 63 10/21/17 00:00 98.8 70 16 103/53 (70) 100 10/21/17 00:00 60 10/20/17 23:00 60 10/20/17 22:00 64 10/20/17 21:00 66 10/20/17 20:00 98.7 69 16 108/66 (80) 100 10/20/17 20:00 66 10/20/17 19:41 98 21 10/20/17 19:00 66 10/20/17 18:18 68 10/20/17 17:17 67 10/20/17 16:00 62 10/20/17 15:51 98.2 62 18 105/74 (84) 100 10/20/17 15:00 68 10/20/17 14:00 68 10/20/17 13:00 74 10/20/17 12:37 100 10/20/17 12:00 66 10/20/17 11:25 98.1 64 20 125/83 (97) 100 10/20/17 11:00 68 I/O 10/20/17 10/20/17 10/20/17 10/21/17 10/21/17 10/21/17 07:00 15:00 23:00 07:00 15:00 23:00 Intake Total 720 ml 240 ml Output Total 375 ml 700 ml Balance -375 ml 20 ml 240 ml Intake Oral 720 ml 240 ml Output Urine Total 375 ml 700 ml # Voids 2 # Bowel Movements 1 1 Result Diagram: 10/21/17 0545 10/21/17 0545 Imaging Last Impressions Chest X-Ray 10/21/17 0000 Signed Impressions: Service Date/Time: Saturday, October 21, 2017 08:08 - CONCLUSION: Persistent stable small left apical pneumothorax Austyn Estes MD Procedures 10/14/2017 AICD placement - single chamber defibrillator implantation 1. Implanted Hardware: The implanted defibrillator generator is a [employer], model number [id number], serial number [id number]. The right ventricular pacing, sensing and defibrillatory lead is a [employer] model number 925938, serial number [id number]. 2. Thresholds: The right ventricular pacing threshold in the bipolar mode was 0.8 volts at 0.5 milliseconds, lead impedance 755 ohms and R-wave at 14.4 mV. Sensing P wave 3.1 mv. The right ventricular defibrillatory threshold less than 20 joules shocking, impedance 79 ohms, charge time 4.0 seconds. 3. Settings: The device set in VVI 40 defibrillatory portion for two zones, one zone for ventricular tachycardia between 180 and 250 beats per minute. Initial therapy consists of one burst of ATP, one ramp, 81%, 10 pulse, 10 millisecond decremental, followed by 20, then 30 and all subsequent shocks at 30 joules defibrillatory shock, the second zone for ventricular fibrillation above 250 beats per minute, first therapy at 30 and all subsequent shocks at 40 joules defibrillatory shock. 10/10/2017 echocardiogram Normal left ventricular size. The left ventricular systolic function is severely reduced with an estimated ejection fraction less than 20%. Mild mitral valve regurgitation. No aortic valve regurgitation. No aortic valve stenosis. There is mild tricuspid valve regurgitation. The estimated pulmonary arterial pressure is 37.7 mmHg. Other Results Laboratory Tests Test 10/09/17 21:41 10/10/17 10:27 10/15/17 04:53 10/21/17 05:45 Platelet Estimate NORMAL Platelet Morphology Comment NORMAL Prothrombin Time 13.0 SEC Prothromb Time International Ratio 1.3 RATIO Activated Partial Thromboplast Time 24.2 SEC Blood Urea Nitrogen 25 MG/DL 30 MG/DL 24 MG/DL Creatinine 1.37 MG/DL 1.11 MG/DL 0.81 MG/DL Random Glucose 85 MG/DL 129 MG/DL 91 MG/DL Total Protein 7.1 GM/DL Albumin 3.5 GM/DL 3.1 GM/DL Calcium Level 8.9 MG/DL 8.5 MG/DL 9.1 MG/DL Alkaline Phosphatase 76 U/L Aspartate Amino Transf (AST/SGOT) 183 U/L Alanine Aminotransferase (ALT/SGPT) 84 U/L Total Bilirubin 3.1 MG/DL Sodium Level 138 MEQ/L 136 MEQ/L 135 MEQ/L Potassium Level 4.6 MEQ/L 3.7 MEQ/L 3.4 MEQ/L Chloride Level 109 MEQ/L 101 MEQ/L 97 MEQ/L Carbon Dioxide Level 16.0 MEQ/L 24.9 MEQ/L 29.9 MEQ/L B-Type Natriuretic Peptide 2925 PG/ML Total Creatine Kinase 351 U/L Creatine Kinase MB 15.9 NG/ML Creatine Kinase MB % 4.5 % Troponin I 0.11 NG/ML Acanthocytes Phosphorus Level 2.7 MG/DL 4.1 MG/DL Magnesium Level 1.7 MG/DL 1.8 MG/DL White Blood Count 8.5 TH/MM3 Red Blood Count 4.60 MIL/MM3 Hemoglobin 13.5 GM/DL Hematocrit 40.0 % Mean Corpuscular Volume 87.1 FL Mean Corpuscular Hemoglobin 29.3 PG Mean Corpuscular Hemoglobin Concent 33.7 % Red Cell Distribution Width 13.6 % Platelet Count 225 TH/MM3 Mean Platelet Volume 9.7 FL Neutrophils (%) (Auto) 49.6 % Lymphocytes (%) (Auto) 32.1 % Monocytes (%) (Auto) 12.8 % Eosinophils (%) (Auto) 4.7 % Basophils (%) (Auto) 0.8 % Neutrophils # (Auto) 4.2 TH/MM3 Lymphocytes # (Auto) 2.7 TH/MM3 Monocytes # (Auto) 1.1 TH/MM3 Eosinophils # (Auto) 0.4 TH/MM3 Basophils # (Auto) 0.1 TH/MM3 CBC Comment DIFF FINAL Differential Comment Anion Gap 8 MEQ/L Estimat Glomerular Filtration Rate 127 ML/MIN Objective Remarks GENERAL: Alert, oriented 3, NAD. SKIN: Warm and dry. HEAD: Normocephalic. EYES: No scleral icterus. No injection or drainage. NECK: Supple, trachea midline. No JVD or lymphadenopathy. CARDIOVASCULAR: Regular rate and rhythm without murmurs, gallops, or rubs. RESPIRATORY: Breath sounds equal bilaterally. No accessory muscle use. GASTROINTESTINAL: Abdomen soft, non-tender, nondistended. MUSCULOSKELETAL: No cyanosis, or edema. BACK: Nontender without obvious deformity. No CVA tenderness. Medications and IVs Current Medications Medications (Trade) Dose Ordered Sig/Talib Route Start Time Stop Time Status Last Admin (Coreg) 12.5 mg BID PO 10/10/17 09:00 10/20/17 22:39 (Lanoxin) 0.25 mg DAILY PO 10/10/17 09:00 10/20/17 10:49 (Imdur) 30 mg DAILY PO 10/10/17 09:00 10/20/17 10:49 (Remeron Soltab Odt) 30 mg HS PO 10/10/17 21:00 10/20/17 22:39 (SEROquel) 25 mg HS PO 10/10/17 21:00 10/20/17 22:39 (Altace) 5 mg DAILY PO 10/10/17 09:00 10/20/17 10:49 (Protonix) 20 mg DAILY PO 10/10/17 09:00 10/20/17 10:48 (Morphine Inj) 1 mg Q4H PRN IV PUSH 10/10/17 11:15 10/16/17 02:05 (Nitroglycerin 2% Oint) 0.5 inch Q6HR PRN TOPICAL 10/10/17 11:15 (Ecotrin Ec) 81 mg DAILY PO 10/11/17 09:00 10/20/17 10:49 (Vitamin B1) 100 mg DAILY PO 10/10/17 12:00 10/20/17 10:48 (Romazicon Inj) 0.2 mg Q1M PRN IV PUSH 10/10/17 11:30 (Ativan) 1 mg Q4H PRN PO 10/10/17 11:30 (Ativan Inj) 1 mg Q4H PRN IV PUSH 10/10/17 11:30 (Ativan) 2 mg Q2H PRN PO 10/10/17 11:30 (Ativan Inj) 2 mg Q2H PRN IV PUSH 10/10/17 11:30 (Ativan Inj) 2 mg Q1H PRN IV PUSH 10/10/17 11:30 (Ativan Inj) 2 mg Q15M PRN IV PUSH 10/10/17 11:30 (Haldol Inj) 2 mg Q15M PRN IM 10/10/17 11:30 (Zofran Inj) 4 mg Q4H PRN IV PUSH 10/14/17 10:30 10/15/17 13:10 (Tylenol-Codeine #3) 1 tab Q4H PRN PO 10/14/17 10:30 10/18/17 21:27 (Tylenol-Codeine #3) 2 tab Q4H PRN PO 10/14/17 10:30 10/21/17 02:40 (NS Flush) 2 ml BID IV FLUSH 10/14/17 21:00 10/20/17 22:39 (NS Flush) 2 ml UNSCH PRN IV FLUSH 10/14/17 10:30 (Duoneb Neb) 1 ampule Q4HR NEB NEB 10/18/17 16:00 10/21/17 03:14 (Duoneb Neb) 1 ampule Q2HR NEB PRN NEB 10/18/17 15:15 (Lasix) 40 mg BID@ PO 10/20/17 18:00 10/20/17 17:46 A/P Assessment and Plan 42-year-old AA male with a past medical history significant for nonischemic cardiomyopathy (echo 12/16/16 with an EF of 20-25%), hypertension, alcohol abuse , tobacco abuse presented to the emergency department with complaints of intermittent severe 7/10 stabbing and crushing substernal chest pain that radiated to the right and left chest. He was subsequently evaluated by cardiology. - Chest pain Improved. - Elevated Troponin - equivocal troponin level. - Non-ischemic Cardiomyopathy with EF around 20%. - Dr. Meléndez consulted. AICD placement 10/14/2017. - Small left sided apical pneumothorax - CXR improving, today up to 1.5 cm, initially asked for IR consult, at this time followed by public relations specialist awaiting final for discharge. - continue Bronchodilator, Mucolytic and Incentive spirometry. okay to discharge home as per public relations specialist. Acute on Chronic CHF, systolic EF = 20-25% as of December 2016 continue Lasix. stable. switch Lasix IV to by mouth, asked for Potassium and magnesium now. History of Pulmonary Embolism, DVT. - I looked through chart. His DVT is old and in fact in a previous hospitalization, he was discharged with discontinuation of Xarelto. Possible early pneumonia - Received 6 days of Azithromycin. Currently on Cephalexin post procedure. - stopped Azithromycin. Full code. was on Xarelto now on SCDs. Discharge Planning Discharge Home. Dillan Lewis MD Oct 21, 2017 09:26
[2017-10-21] MEDS: CARVEDILOL 12.5 MG TAB PO SCH (10:12)
[2017-10-21] MEDS: THIAMINE HCL 100 MG TAB PO SCH (10:13)
[2017-10-21] MEDS: SODIUM CHLORIDE 0.9% FLUSH 10 ML FLUSH IV FLUSH SCH (10:13)
[2017-10-21] MEDS: ASPIRIN EC 81 MG TABEC PO SCH (10:13)
[2017-10-21] MEDS: RAMIPRIL 5 MG CAP PO SCH (10:13)
[2017-10-21] MEDS: PANTOPRAZOLE SOD 20 MG DELAYED RELEASE TAB PO SCH (10:13)
[2017-10-21] MEDS: FUROSEMIDE 40 MG TAB PO SCH (10:13)
[2017-10-21] MEDS: DIGOXIN 0.25 MG TAB PO SCH (10:13)
[2017-10-21] MEDS: ISOSORBIDE MONONITRATE 30 MG TAB PO SCH (10:13)
[2017-10-21] MEDS ORDERED: POTASSIUM CHLORIDE 20 MEQ CONTROLLED RELEASE TAB PO ONE ×2 (12:45→15:00)
[2017-10-21] MEDS: MAGNESIUM SULFATE 1 GM PREMIX 100 ML IV SCH ×2 (13:45→14:46)
[2017-10-21] MEDS ORDERED: SYMB160A INH (14:08)
[2017-10-21] MEDS ORDERED: ACET1TAB94 PO (14:08)
[2017-10-21] MEDS ORDERED: FURO40TA PO (14:08)
[2017-10-21] MEDS ORDERED: ECASA81 PO (14:08)
[2017-10-21] MEDS ORDERED: THIA100 PO (14:08)
[2017-10-21] MEDS ORDERED: CARV6.25 PO (14:08)
--- NOTE | 2017-10-21 14:20 | HHI.DS ---
Discharge Summary Admission Date Oct 16, 2017 at 09:49 Discharge Date: Oct 21, 2017 Admitting Diagnosis chest pain, abnormal EKG, elevated troponin (1) Chest pain ICD Code: R07.9 - Chest pain Diagnosis: Principal Status: Acute (2) Cardiomyopathy ICD Code: I42.9 - Cardiomyopathy Diagnosis: Principal Status: Acute Procedures 10/14/2017 AICD placement - single chamber defibrillator implantation 1. Implanted Hardware: The implanted defibrillator generator is a [employer], model number 390545, serial number [id number]. The right ventricular pacing, sensing and defibrillatory lead is a [employer] model number 658294, serial number [id number]. 2. Thresholds: The right ventricular pacing threshold in the bipolar mode was 0.8 volts at 0.5 milliseconds, lead impedance 755 ohms and R-wave at 14.4 mV. Sensing P wave 3.1 mv. The right ventricular defibrillatory threshold less than 20 joules shocking, impedance 79 ohms, charge time 4.0 seconds. 3. Settings: The device set in VVI 40 defibrillatory portion for two zones, one zone for ventricular tachycardia between 180 and 250 beats per minute. Initial therapy consists of one burst of ATP, one ramp, 81%, 10 pulse, 10 millisecond decremental, followed by 20, then 30 and all subsequent shocks at 30 joules defibrillatory shock, the second zone for ventricular fibrillation above 250 beats per minute, first therapy at 30 and all subsequent shocks at 40 joules defibrillatory shock. 10/10/2017 echocardiogram Normal left ventricular size. The left ventricular systolic function is severely reduced with an estimated ejection fraction less than 20%. Mild mitral valve regurgitation. No aortic valve regurgitation. No aortic valve stenosis. There is mild tricuspid valve regurgitation. The estimated pulmonary arterial pressure is 37.7 mmHg. Brief History - From Admission 42-year-old AA male with a past medical history significant for nonischemic cardiomyopathy (echo 12/16/16 with an EF of 20-25%), hypertension, alcohol abuse , tobacco abuse presented to the emergency department with complaints of intermittent severe 7/10 stabbing and crushing substernal chest pain that radiated to the right and left chest. Patient states that he thought he had the flu and pneumonia and had body aches however his chest pain was what brought him in again. Apparently he came in earlier was seen by nurse practitioner was given what he thought were "2 Tylenols "and was sent home. Patient was not happy with his care and returned complaining of chest pains. He states in having chest pain on and off mainly in the mid chest with radiation to the right and left. He denies any radiation to his neck or his arms. He states that about a month ago he was supposed to get a "stent" and his heart however he never did. He would like to be evaluated for this. He quit smoking about 2 months ago. Admits to smoking 4-5 cigarettes a day for the past 3-4 years. He's been drinking since the age of 18. Admits to 3-4 beers daily and a pint of liquor on and off. patient had a cardiac catheterization in 2014 that showed patent coronary arteries with moderate to severe left ventricular systolic dysfunction. Patient admits to dry cough, admits to being exposed to his sister with flulike symptoms. No fevers or chills. Denies any weight gain. CBC/BMP: 10/21/17 0545 10/21/17 0545 Significant Findings Laboratory Tests Test 10/20/17 15:27 10/21/17 05:45 Monocytes (%) (Auto) 12.8 % (0.0-8.0) Eosinophils (%) (Auto) 4.7 % (0.0-4.0) Monocytes # (Auto) 1.1 TH/MM3 (0-0.9) Blood Urea Nitrogen 24 MG/DL (7-18) Sodium Level 135 MEQ/L (136-145) Potassium Level 3.4 MEQ/L (3.5-5.1) Chloride Level 97 MEQ/L (98-107) Imaging Last Impressions Chest X-Ray 10/21/17 0000 Signed Impressions: Service Date/Time: Saturday, October 21, 2017 08:08 - CONCLUSION: Persistent stable small left apical pneumothorax Austyn Estes MD PE at Discharge GENERAL: Alert, oriented 3, NAD. SKIN: Warm and dry. HEAD: Normocephalic. EYES: No scleral icterus. No injection or drainage. NECK: Supple, trachea midline. No JVD or lymphadenopathy. CARDIOVASCULAR: Regular rate and rhythm without murmurs, gallops, or rubs. RESPIRATORY: Breath sounds equal bilaterally. No accessory muscle use. GASTROINTESTINAL: Abdomen soft, non-tender, nondistended. MUSCULOSKELETAL: No cyanosis, or edema. BACK: Nontender without obvious deformity. No CVA tenderness. Hospital Course This is a pleasant 42 y/o male with Cardiomyopathy, who is followed due to Chest pain, Developed Pneumothorax after AICD placement, he requested to go to SNF at discharge. 10/19: Stable seen in his bedroom, seen by customer program specialist recommended to continue Oxygen to keep O2 Saturation over 92%, Pneumothorax size less than two Cm. no intervention at this time, recommended to repeat CXR in am tomorrow probable Pigtail catheter if needed. 10/20: seen in his bedroom, discussed with nurse Miss Barton and with global engineering manager patient will need to go to SNF at discharge. new CXR with stable and Improving Pneumothorax. awaiting final by customer program specialist for discharge. 10/21: Okay to discharge as per customer program specialist, no nausea, vomit or diarrhea. will go home with Outpatient Physical Therapy. 10/14/2017 AICD placement - single chamber defibrillator implantation Assessment and Plan 42-year-old AA male with a past medical history significant for nonischemic cardiomyopathy (echo 12/16/16 with an EF of 20-25%), hypertension, alcohol abuse , tobacco abuse presented to the emergency department with complaints of intermittent severe 7/10 stabbing and crushing substernal chest pain that radiated to the right and left chest. He was subsequently evaluated by cardiology. - Chest pain Improved. - Elevated Troponin - equivocal troponin level. - Non-ischemic Cardiomyopathy with EF around 20%. - Dr. Meléndez consulted. AICD placement 10/14/2017. - Small left sided apical pneumothorax - CXR improving, today up to 1.5 cm, initially asked for IR consult, at this time followed by customer program specialist awaiting final for discharge. - continue Bronchodilator, Mucolytic and Incentive spirometry. okay to discharge home as per customer program specialist. Acute on Chronic CHF, systolic EF = 20-25% as of December 2016 continue Lasix. stable. switch Lasix IV to by mouth, asked for Potassium and magnesium now. History of Pulmonary Embolism, DVT. - I looked through chart. His DVT is old and in fact in a previous hospitalization, he was discharged with discontinuation of Xarelto. Possible early pneumonia - Received 6 days of Azithromycin. Currently on Cephalexin post procedure. - stopped Azithromycin. Full code. was on Xarelto now on SCDs. Discharge Planning Discharge Home. Pt Condition on Discharge: Good Discharge Disposition: Discharge Home Discharge Time: > 30 minutes Discharge Instructions DIET: Follow Instructions for: Heart Healthy Diet Activities you can perform: Regular-No Restrictions Dillan Lewis MD Oct 21, 2017 14:20
== END 2017-10-21 18:25 | disposition home or self-care (01) | DRG 226 ==
LOC: NEPC 20:39 → NEDA 23:26 → HCIS 10-10 01:02 → OBSVTOIN 10-16 09:49
PROVIDERS: ADMIT Internal Medicine; ATTEND Internal Medicine
PROC: 0JH608Z Insertion of Defibrillator Generator into Chest Subcutaneous Tissue and Fascia, Open Approach (ICD-10-PCS; 2017-10-14)
PROC: 02HK3KZ Insertion of Defibrillator Lead into Right Ventricle, Percutaneous Approach (ICD-10-PCS; principal; 2017-10-14 14:30)
DX: I11.0 Hypertensive heart disease with heart failure (principal); J18.9 Pneumonia, unspecified organism; I42.9 Cardiomyopathy, unspecified; I08.1 Rheumatic disorders of both mitral and tricuspid valves; J95.811 Postprocedural pneumothorax; K74.60 Unspecified cirrhosis of liver; I50.22 Chronic systolic (congestive) heart failure; F32.9 Major depressive disorder, single episode, unspecified; F41.9 Anxiety disorder, unspecified; M54.9 Dorsalgia, unspecified; R74.8 Abnormal levels of other serum enzymes; I25.2 Old myocardial infarction; K21.9 Gastro-esophageal reflux disease without esophagitis; Z87.11 Personal history of peptic ulcer disease; H91.93 Unspecified hearing loss, bilateral; Z87.891 Personal history of nicotine dependence; Z79.01 Long term (current) use of anticoagulants; Z86.711 Personal history of pulmonary embolism; Z82.49 Family history of ischemic heart disease and other diseases of the circulatory system
CPT/HCPCS: 33249; 71045; 71046; 76937; 80048; 80053; 80069; 82550; 82552; 83735; 83880; 84100; 84132; 84484; 85025; 85610; 85730; 90686; 93005; 93306; 93641; 94640; 94664; 96361; 96365; 96366; 96372; 96375; 96376; 99285; C1722; C1777; G0378; J0690; J0696; J1100; J1200; J1940; J2250; J2270; J2405; J3010; J3370; J3475; J7030; J7040; Q2038

== ENCOUNTER 2017-11-01 18:04 | Emergency (ER) | payer OTHER ==
[~2017-11-01 18:04] MED LIST changes: +ACET1TAB94 PO; -CARV12.52 PO; +CARV6.25 PO; +ECASA81 PO; +SYMB160A INH; +THIA100 PO; -XARE20TA PO
[2017-11-01 18:07] VITALS: BP 122/70; PULSE 85; RESP 12; TEMP 98.4; O2SAT 98
[2017-11-01 19:57] VITALS: BP 123/85; PULSE 77; RESP 14; O2SAT 98
--- NOTE | 2017-11-01 20:08 | PD ---
HPI Chief Complaint: Edema Time Seen by Provider: 19:58 Travel History International Travel<30 days: No Contact w/Intl Traveler<30days: No Traveled to known affect area: No History of Present Illness HPI 40-year-old male asked the ER due to edema bilateral lower extremities. Duration 2 days. Associated symptoms include chronic shortness of breath. Onset gradual. Timing constant. He denies fever. PFSH Past Medical History Hx Anticoagulant Therapy: Yes Autoimmune Disease: No Blood Disorders: No Anxiety: Yes Depression: Yes Heart Rhythm Problems: Yes Cancer: No Cardiac Catheterization: Yes (Heart md-Charlie Damico DO) Cardiomyopathy: Yes Cardiovascular Problems: Yes ([place] 2014) High Cholesterol: No Chemotherapy: No Chest Pain: Yes Congestive Heart Failure: No Cirrhosis: Yes Cerebrovascular Accident: No Diabetes: No Diminished Hearing: Yes (BILATERAL - [place]) Deep Vein Thrombosis: Yes (roberto le leg/xarelto) Endocrine: No Gastrointestinal Disorders: Yes (Reflux, Ulcers) GERD: Yes Glaucoma: No Genitourinary: No Hepatitis: No Hiatal Hernia: No Heparin Induced Thrombocytopen: No Hypertension: Yes Immune Disorder: No Implanted Vascular Access Dvce: No Musculoskeletal: Yes Neurologic: No Psychiatric: Yes Reproductive: No Respiratory: No Immunizations Current: No Myocardial Infarction: Yes Pneumonia: Yes Radiation Therapy: No Sickle Cell Disease: No Thyroid Disease: No Ulcer: Yes Tetanus Vaccination: < 5 Years Influenza Vaccination: Yes ?: Not Past Surgical History Abdominal Surgery: Yes (EXPLORATORY LAP) AICD: No Appendectomy: No Arteriovenous Shunt: No Body Medical Devices: pacemaker Cholecystectomy: No Coronary Artery Bypass Graft: No Ear Surgery: No Endocrine Surgery: No Eye Surgery: No Gynecologic Surgery: No Hysterectomy: No Insulin Pump: No Joint Replacement: No Oral Surgery: Yes (TEETH EXTRACTIONS) Pacemaker: No Other Surgery: No Family History Family Myocardial Infarction: Yes (MOTHER/GRANDMOTHER) Social History Alcohol Use: Yes (couple beers per day) Tobacco Use: No Substance Use: No Allergies-Medications (Allergen,Severity, Reaction): Coded Allergies: Fish Containing Products (Verified Allergy, Severe, itching, 11/01/17) iodine (Verified Allergy, Severe, itching, 11/01/17) potassium iodide (Verified Allergy, Severe, itching, 11/01/17) povidone-iodine (Verified Allergy, Severe, itching, 11/01/17) sodium iodide (Verified Allergy, Severe, itching, 11/01/17) Reported Meds & Prescriptions Reported Meds & Active Scripts Active Gnp Vitamin B-1 (Thiamine HCl) 100 Mg Tab 100 Mg PO DAILY Furosemide 40 Mg Tab 40 Mg PO BID@ Acetaminophen-Codeine 300-30 mg Tab 2 Tab PO Q4H PRN DO NOT TAKE THIS MEDICINE IF YOU WILL DRIVE A CAR OR USE A MACHINE, ONLY USE IT WHEN RESTING AT HOME. Symbicort Inh (Budesonide/Formoterol Fumarate) 160-4.5 Mcg/Act Aero 1 Puff INH Q12HR Aspirin DR (Aspirin) 81 Mg Tabdr 81 Mg PO DAILY Coreg (Carvedilol) 6.25 Mg Tab 6.25 Mg PO BID Acetaminophen-Codeine 300-30 mg Tab 1 Tab PO Q6HR PRN Reported Ramipril 5 Mg Cap 5 Mg PO DAILY Omeprazole 20 Mg Tab 20 Mg PO DAILY Klor-Con M20 (Potassium Chloride Microencaps) 20 Meq Tab 20 Meq PO DAILY Isosorbide Mononitrate ER (Isosorbide Mononitrate) 30 Mg Tahir 30 Mg PO DAILY Digoxin 0.25 Mg Tab 0.25 Mg PO DAILY Mirtazapine ODT (Mirtazapine) 30 Mg Tab 30 Mg PO HS Quetiapine (Quetiapine Fumarate) 25 Mg Tab 25 Mg PO HS Review of Systems Except as stated in HPI: all other systems reviewed are Neg General / Constitutional: No: Fever Musculoskeletal: Positive: Edema Physical Exam Narrative GENERAL: 42-year-old M, NAD, speaking sentences SKIN: Warm and dry. HEAD: Atraumatic. Normocephalic. EYES: Pupils equal and round. No scleral icterus. No injection or drainage. ENT: No nasal bleeding or discharge. Mucous membranes pink and moist. NECK: Trachea midline. No JVD. CARDIOVASCULAR: Regular rate and rhythm. RESPIRATORY: No accessory muscle use. Clear to auscultation. Breath sounds equal bilaterally. GASTROINTESTINAL: Abdomen soft, non-tender, nondistended. Hepatic and splenic margins not palpable. MUSCULOSKELETAL: Edema legs bilaterally. 2+. No crepitus. No asymmetry or sign of DVT. NEUROLOGICAL: Awake and alert. No obvious cranial nerve deficits. Motor grossly within normal limits. Five out of 5 muscle strength in the arms and legs. Normal speech. PSYCHIATRIC: Appropriate mood and affect; insight and judgment normal. Data Data Last Documented VS Vital Signs Date Time Temp Pulse Resp B/P (MAP) Pulse Ox O2 Delivery O2 Flow Rate FiO2 11/01/17 20:15 16 98 Room Air 11/01/17 19:57 77 11/01/17 18:07 98.4 VS Vital Signs Date Time Temp Pulse Resp B/P (MAP) Pulse Ox O2 Delivery O2 Flow Rate FiO2 11/01/17 20:15 16 98 Room Air 11/01/17 20:15 98 Room Air 11/01/17 19:57 77 14 123/85 (98) 98 11/01/17 18:07 98.4 85 12 122/70 (87) 98 Orders Orders Complete Blood Count With Diff (11/01/17 20:08) Basic Metabolic Panel (Bmp) (11/01/17 20:08) B-Type Natriuretic Peptide (11/01/17 20:08) Act Partial Throm Time (Ptt) (11/01/17 20:08) Prothrombin Time / Inr (Pt) (11/01/17 20:08) Iv Access Insert/Monitor (11/01/17 20:08) Electrocardiogram (11/01/17 20:08) Ecg Monitoring (11/01/17 20:08) Oximetry (11/01/17 20:08) Oxygen Administration (11/01/17 20:08) Chest, Single Ap (11/01/17 20:08) Sodium Chloride 0.9% Flush (Ns Flush) (11/01/17 20:15) Ed Discharge Order (11/01/17 21:40) Labs Laboratory Tests Test 11/01/17 20:15 White Blood Count 8.0 TH/MM3 Red Blood Count 4.28 MIL/MM3 Hemoglobin 12.4 GM/DL Hematocrit 37.3 % Mean Corpuscular Volume 87.1 FL Mean Corpuscular Hemoglobin 28.9 PG Mean Corpuscular Hemoglobin Concent 33.1 % Red Cell Distribution Width 14.1 % Platelet Count 257 TH/MM3 Mean Platelet Volume 9.3 FL Neutrophils (%) (Auto) 51.9 % Lymphocytes (%) (Auto) 35.5 % Monocytes (%) (Auto) 10.2 % Eosinophils (%) (Auto) 1.9 % Basophils (%) (Auto) 0.5 % Neutrophils # (Auto) 4.1 TH/MM3 Lymphocytes # (Auto) 2.8 TH/MM3 Monocytes # (Auto) 0.8 TH/MM3 Eosinophils # (Auto) 0.2 TH/MM3 Basophils # (Auto) 0.0 TH/MM3 CBC Comment DIFF FINAL Differential Comment Prothrombin Time 10.5 SEC Prothromb Time International Ratio 1.0 RATIO Activated Partial Thromboplast Time 24.3 SEC Blood Urea Nitrogen 8 MG/DL Creatinine 0.89 MG/DL Random Glucose 83 MG/DL Calcium Level 9.0 MG/DL Sodium Level 141 MEQ/L Potassium Level 4.4 MEQ/L Chloride Level 107 MEQ/L Carbon Dioxide Level 26.0 MEQ/L Anion Gap 8 MEQ/L Estimat Glomerular Filtration Rate 114 ML/MIN B-Type Natriuretic Peptide 460 PG/ML MDM Medical Decision Making Medical Screen Exam Complete: Yes Emergency Medical Condition: Yes Medical Record Reviewed: Yes Differential Diagnosis CHF, venous insufficiency, hypoalbuminemia, pneumonia Narrative Course CBC & BMP Diagram 11/01/17 20:15 Calcium Level 9.0 BNP 450 Last 24 hours Impressions Chest X-Ray 11/01/172007 Signed Impressions: Service Date/Time: Wednesday, November 01, 2017 20:18 - CONCLUSION: Early/mild right upper lobe infiltrate suspected. Lungs otherwise clear. No pneumothorax. Satya Pryor MD Azithromycin for poss PNA. Pt has rested comfortably during his stay. Diagnosis Primary Impression: Chronic systolic CHF (congestive heart failure) Additional Impressions: Edema Qualified Codes: R60.9 - Edema, unspecified CAP (community acquired pneumonia) Qualified Codes: J18.1 - Lobar pneumonia, unspecified organism Referrals: Primary Care Physician 2 days Med/Other Pt SpecificInfo: Prescription(s) given, No Change to Meds Scripts Azithromycin (Azithromycin) 250 Mg Tab 250 MG PO DAILY for Infection for 4 Days, #4 TAB 0 Refills Prov: Carlos Campuzano MD 11/01/17 Disposition: 01 DISCHARGE HOME Condition: Stable Carlos Campuzano MD Nov 01, 2017 20:08
[2017-11-01 20:15] VITALS: RESP 16; O2SAT 98
[2017-11-01] MEDS ORDERED: SODIUM CHLORIDE 0.9% FLUSH 10 ML FLUSH IVF PRN (20:15)
--- NOTE | 2017-11-01 20:29 | RADRPT ---
EXAM DATE/TIME: 11/01/2017 20:18 [facility] COMPARISON: CHEST SINGLE AP, October 21, 2017, 8:08. INDICATIONS : Shortness of breath. MEDICAL HISTORY : Cardiovascular disease. Chronic obstructive pulmonary disease. SURGICAL HISTORY : Pacemaker. ENCOUNTER: Initial ACUITY: 1 day PAIN SCORE: 0/10 LOCATION: Bilateral chest FINDINGS: Potential mild infiltrates seen in the right lower lobe adjacent to the minor fissure. Lungs otherwis e appear clear and unchanged. No pleural effusion demonstrated. No pneumothorax. Lungs appear hyperex panded. Heart size stable, upper limits of normal. Cardiac pacer again noted. CONCLUSION: Early/mild right upper lobe infiltrate suspected. Lungs otherwise clear. No pneumothorax. Satya Pryor MD on November 01, 2017 at 20:24 Board Certified Radiologist. This report was verified electronically.
[2017-11-01 21:04] LABS: AUTOMATED NEUTROPHIL # 4.1 TH/MM3 (1.8-7.7); BASOPHIL % 0.5 % (0.0-2.0); EOSINOPHIL # 0.2 TH/MM3 (0-0.4); EOSINOPHIL % 1.9 % (0.0-4.0); HEMATOCRIT 37.3 % (39.0-51.0); HEMOGLOBIN 12.4 GM/DL (13.0-17.0); LYMPH % 35.5 % (9.0-44.0); LYMPHOCYTE # 2.8 TH/MM3 (1.0-4.8); MEAN CELL VOLUME 87.1 FL (80.0-100.0); MEAN CORPUSCULAR HEMOGLOBIN 28.9 PG (27.0-34.0); MEAN CORPUSCULAR HGB CONC 33.1 % (32.0-36.0); MEAN PLATELET VOLUME 9.3 FL (7.0-11.0); MONO % 10.2 % (0.0-8.0); MONOCYTE # 0.8 TH/MM3 (0-0.9); NEUT % 51.9 % (16.0-70.0); PLATELET COUNT 257 TH/MM3 (150-450); RED BLOOD COUNT 4.28 MIL/MM3 (4.50-5.90); RED CELL DISTRIBUTION WIDTH 14.1 % (11.6-17.2)
[2017-11-01 21:08] LABS: PROTHROMBIN TIME - PATIENT 10.5 SEC (9.8-11.6)
[2017-11-01 21:22] LABS: CREATININE 0.89 MG/DL (0.60-1.30)
[2017-11-01] MEDS ORDERED: AZIT250T3 PO (21:53)
[2017-11-01 22:35] VITALS: PULSE 87; RESP 18
--- NOTE | 2017-11-02 12:20 | EKG ---
Date Performed: 11/01/2017 Time Performed: 20:06:49 PTAGE: 42 years EKG: Sinus rhythm POSSIBLE LEFT ATRIAL ENLARGEMENT LEFT ANTERIOR FASCICULAR BLOCK ANTERIOR MYOCARDIAL INFARCTION MODER ATE T-WAVE ABNORMALITY, CONSIDER LATERAL ISCHEMIA Small R waves are now noted in the inferior wall, o therwise unchanged from prior ABNORMAL ECG NO PREVIOUS TRACING DOCTOR: Charlie Bonilla Interpretating Date/Time 11/02/2017 12:19:19
== END 2017-11-01 22:45 | disposition home or self-care (01) ==
LOC: NEPE 18:04
DX: I11.0 Hypertensive heart disease with heart failure (principal); I50.22 Chronic systolic (congestive) heart failure; J44.0 Chronic obstructive pulmonary disease with (acute) lower respiratory infection; J18.1 Lobar pneumonia, unspecified organism; I25.2 Old myocardial infarction; K21.9 Gastro-esophageal reflux disease without esophagitis
CPT/HCPCS: 71045; 80048; 83880; 85025; 85610; 85730; 93005; 99285

== ENCOUNTER 2017-11-02 15:37 | Emergency (ER) | payer OTHER ==
[~2017-11-02] VITALS: Ht 175.3 cm; Wt 55.0 kg
[~2017-11-02 15:37] MED LIST changes: +AZIT250T3 PO
[2017-11-02 15:44] VITALS: BP 115/84; PULSE 75; RESP 13; TEMP 98.4; O2SAT 99
== END 2017-11-02 16:19 | disposition left against medical advice (07) ==
LOC: NED 15:37
DX: Z76.0 Encounter for issue of repeat prescription (principal)
CPT/HCPCS: 99281

== ENCOUNTER 2017-11-06 12:13 | Emergency (ER) | payer OTHER ==
[~2017-11-06] VITALS: Ht 175.3 cm; Wt 50.0 kg
[2017-11-06 12:15] VITALS: BP 126/80; PULSE 80; RESP 20; TEMP 97.8; O2SAT 99
--- NOTE | 2017-11-06 12:55 | PD ---
HPI Chief Complaint: Wound/Suture/Staple Re-Check Time Seen by Provider: 12:40 Travel History International Travel<30 days: No Contact w/Intl Traveler<30days: No Traveled to known affect area: No History of Present Illness HPI 42-year-old male presents requesting wound check. It appears that the patient had a single chamber defibrillator implanted on October 14. He presents today with the question "do the stitches need to be taken out?" For most of the examination he is agitated and cursing, primarily upset and fixated on the fact that he had a cab waiting while he was in the emergency department and Apparently it left with an expensive coat. Regardless, he has no medical complaints, he is simply wondering if stitches from his recent single chamber defibrillator implantation need to be taken out. PFSH Past Medical History Hx Anticoagulant Therapy: Yes Autoimmune Disease: No Blood Disorders: No Anxiety: Yes Depression: Yes Heart Rhythm Problems: Yes Cancer: No Cardiac Catheterization: Yes (Heart md-Charlie Damico DO) Cardiomyopathy: Yes Cardiovascular Problems: Yes High Cholesterol: No Chemotherapy: No Chest Pain: Yes Congestive Heart Failure: No Cirrhosis: Yes Cerebrovascular Accident: No Diabetes: No Diminished Hearing: Yes (BILATERAL - [place]) Deep Vein Thrombosis: Yes (roberto le leg/xarelto) Endocrine: No Gastrointestinal Disorders: Yes (Reflux, Ulcers) GERD: Yes Glaucoma: No Genitourinary: No Hepatitis: No Hiatal Hernia: No Heparin Induced Thrombocytopen: No Hypertension: Yes Immune Disorder: No Implanted Vascular Access Dvce: No Musculoskeletal: Yes Neurologic: No Psychiatric: Yes Reproductive: No Respiratory: No Immunizations Current: No Myocardial Infarction: Yes Pneumonia: Yes Radiation Therapy: No Sickle Cell Disease: No Thyroid Disease: No Ulcer: Yes Past Surgical History Abdominal Surgery: Yes (EXPLORATORY LAP) AICD: No Appendectomy: No Arteriovenous Shunt: No Body Medical Devices: pacemaker Cholecystectomy: No Coronary Artery Bypass Graft: No Ear Surgery: No Endocrine Surgery: No Eye Surgery: No Gynecologic Surgery: No Hysterectomy: No Insulin Pump: No Joint Replacement: No Oral Surgery: Yes (TEETH EXTRACTIONS) Pacemaker: No Other Surgery: No Social History Alcohol Use: Yes (couple beers per day) Tobacco Use: No Substance Use: No Allergies-Medications (Allergen,Severity, Reaction): Coded Allergies: Fish Containing Products (Verified Allergy, Severe, itching, 11/06/17) iodine (Verified Allergy, Severe, itching, 11/06/17) potassium iodide (Verified Allergy, Severe, itching, 11/06/17) povidone-iodine (Verified Allergy, Severe, itching, 11/06/17) sodium iodide (Verified Allergy, Severe, itching, 11/06/17) Reported Meds & Prescriptions Reported Meds & Active Scripts Active Azithromycin 250 Mg Tab 250 Mg PO DAILY 4 Days Gnp Vitamin B-1 (Thiamine HCl) 100 Mg Tab 100 Mg PO DAILY Furosemide 40 Mg Tab 40 Mg PO BID@ Acetaminophen-Codeine 300-30 mg Tab 2 Tab PO Q4H PRN DO NOT TAKE THIS MEDICINE IF YOU WILL DRIVE A CAR OR USE A MACHINE, ONLY USE IT WHEN RESTING AT HOME. Symbicort Inh (Budesonide/Formoterol Fumarate) 160-4.5 Mcg/Act Aero 1 Puff INH Q12HR Aspirin DR (Aspirin) 81 Mg Tabdr 81 Mg PO DAILY Coreg (Carvedilol) 6.25 Mg Tab 6.25 Mg PO BID Acetaminophen-Codeine 300-30 mg Tab 1 Tab PO Q6HR PRN Reported Ramipril 5 Mg Cap 5 Mg PO DAILY Omeprazole 20 Mg Tab 20 Mg PO DAILY Klor-Con M20 (Potassium Chloride Microencaps) 20 Meq Tab 20 Meq PO DAILY Isosorbide Mononitrate ER (Isosorbide Mononitrate) 30 Mg Tahir 30 Mg PO DAILY Digoxin 0.25 Mg Tab 0.25 Mg PO DAILY Mirtazapine ODT (Mirtazapine) 30 Mg Tab 30 Mg PO HS Quetiapine (Quetiapine Fumarate) 25 Mg Tab 25 Mg PO HS Review of Systems ROS Limitations: Other: (agitated) Skin: Positive Other (positive for Steri-Strips left upper chest wall) Physical Exam Narrative GENERAL: This is an agitated middle-aged man who is in no acute distress. SKIN: Warm and dry. Examination of the chest wall reveals a well-healing surgical incision overlying his pacemaker. There are Steri-Strips in place which I of taken off. There is no wound dehiscence, no erythema or drainage. HEAD: Atraumatic. Normocephalic. EYES: Pupils equal and round. No scleral icterus. No injection or drainage. ENT: No nasal bleeding or discharge. Mucous membranes pink and moist. NECK: Trachea midline. No JVD. CARDIOVASCULAR: Regular rate and rhythm. No murmur appreciated. RESPIRATORY: No accessory muscle use. Clear to auscultation. Breath sounds equal bilaterally. Data Data Last Documented VS Vital Signs Date Time Temp Pulse Resp B/P (MAP) Pulse Ox O2 Delivery O2 Flow Rate FiO2 11/06/17 12:15 97.8 80 20 126/80 (95) 99 Room Air Orders Orders Ed Discharge Order (11/06/17 12:52) MDM Medical Decision Making Medical Screen Exam Complete: Yes Emergency Medical Condition: Yes Medical Record Reviewed: Yes Differential Diagnosis Wound recheck, Steri-Strip removal, suture removal, wound dehiscence Narrative Course The Steri-Strips are removed and the surgical incision appears to be healing well. Per operative note performed on October [address] Meléndez it appears that Vicryl was used subcutaneously with no cutaneous nonabsorbable sutures placed. The wound was closed cutaneously with Dermabond and Steri- Strips. Therefore no sutures needed be removed. The patient is stable for discharge. Diagnosis Primary Impression: Encounter for wound re-check Med/Other Pt SpecificInfo: Wound Care Disposition: DISCHARGE HOME Condition: Stable Ravi Cramer Nov 06, 2017 12:55
== END 2017-11-06 13:07 | disposition home or self-care (01) ==
LOC: NEPK 12:13
DX: Z98.890 Other specified postprocedural states (principal); I42.9 Cardiomyopathy, unspecified; F41.9 Anxiety disorder, unspecified; F32.9 Major depressive disorder, single episode, unspecified; K74.60 Unspecified cirrhosis of liver; Z86.718 Personal history of other venous thrombosis and embolism; K21.9 Gastro-esophageal reflux disease without esophagitis; I10 Essential (primary) hypertension; I25.2 Old myocardial infarction
CPT/HCPCS: 99281

== ENCOUNTER 2017-11-10 16:44 | Emergency (ER) | payer OTHER ==
[2017-11-10 16:46] VITALS: BP 120/79; PULSE 80; RESP 17; TEMP 98.3; O2SAT 99
--- NOTE | 2017-11-10 17:31 | RADRPT ---
EXAM DATE/TIME: 11/10/2017 17:25 [facility] COMPARISON: CHEST PA & LAT, October 19, 2017, 4:49. INDICATIONS : Palpitations. Bilateral leg swelling. MEDICAL HISTORY : Cardiovascular disease. Chronic obstructive pulmonary disease. Smoker. SURGICAL HISTORY : Pacemaker. ENCOUNTER: Initial ACUITY: 3 weeks PAIN SCORE: 0/10 LOCATION: Bilateral chest FINDINGS: Marked hyperinflation with pacer on the left. There is no pneumothorax. There is no consolidation. Bones are osteoporotic. Cardiac size is appropriate. CONCLUSION: Marked hyperinflation without overt congestive failure, infiltrate or effusion. Marcelo Aguila MD FACR on November 10, 2017 at 17:28 Board Certified Radiologist. This report was verified electronically.
[2017-11-10 19:04] LABS: AUTOMATED NEUTROPHIL # 3.5 TH/MM3 (1.8-7.7); BASOPHIL % 0.6 % (0.0-2.0); EOSINOPHIL # 0.1 TH/MM3 (0-0.4); EOSINOPHIL % 1.5 % (0.0-4.0); HEMATOCRIT 37.3 % (39.0-51.0); HEMOGLOBIN 12.5 GM/DL (13.0-17.0); LYMPH % 39.7 % (9.0-44.0); LYMPHOCYTE # 2.9 TH/MM3 (1.0-4.8); MEAN CELL VOLUME 87.4 FL (80.0-100.0); MEAN CORPUSCULAR HEMOGLOBIN 29.3 PG (27.0-34.0); MEAN CORPUSCULAR HGB CONC 33.5 % (32.0-36.0); MEAN PLATELET VOLUME 9.1 FL (7.0-11.0); MONOCYTE # 0.7 TH/MM3 (0-0.9); NEUT % 48.2 % (16.0-70.0); PLATELET COUNT 200 TH/MM3 (150-450); RED BLOOD COUNT 4.26 MIL/MM3 (4.50-5.90); RED CELL DISTRIBUTION WIDTH 14.8 % (11.6-17.2); WHITE BLOOD COUNT 7.3 TH/MM3 (4.0-11.0)
[2017-11-10 19:14] LABS: CREATININE 0.84 MG/DL (0.60-1.30)
[2017-11-10 19:58] VITALS: BP 139/90; PULSE 82; RESP 16; O2SAT 99
--- NOTE | 2017-11-10 20:19 | PD ---
HPI Chief Complaint: Edema Time Seen by Provider: 19:56 Travel History International Travel<30 days: No Contact w/Intl Traveler<30days: No Traveled to known affect area: No History of Present Illness HPI The patient is a 42 year old male who presents to the [facility] emergency department with a history of lower extremity edema that he reports has been unimproved over the last 2-3 weeks. On further questioning he reports that he is out of his diuretic and has been out of this for the last 2-1/2 weeks. He reports that he is awaiting an appointment with his new primary care physician, Dr. Santillan on November 23 to be referred to a new inbound call center agent and get refills of his medications. He is unsure of what medications he is out of and which medications he has continued. Unfortunately, the patient is a poor historian. The patient denies having any chest pain, chest pressure, or shortness of breath. The patient denies having any fevers or chills, worsening cough or congestion, neck pain, abdominal pain, vomiting, urinary symptoms, or neurologic symptoms. The patient reports that he does have intermittent loose stools. He attributes this to his medication "tearing my stomach up". PFSH Past Medical History Narrative Medical The patient's past medical history is significant for having a nonischemic cardiomyopathy with his last ejection fraction being between 20 and 25% status post AICD placement, history of pulmonary embolism, DVT, anxiety and depression , alcohol abuse, prior history of cocaine use, tobacco use. Hx Anticoagulant Therapy: Yes Autoimmune Disease: No Blood Disorders: No Anxiety: Yes Depression: Yes Heart Rhythm Problems: Yes Cancer: No Cardiac Catheterization: Yes (Heart mdJennifer Damico DO) Cardiomyopathy: Yes Cardiovascular Problems: Yes High Cholesterol: No Chemotherapy: No Chest Pain: Yes Congestive Heart Failure: No Cirrhosis: Yes Cerebrovascular Accident: No Diabetes: No Diminished [place]: Yes [place] Deep Vein Thrombosis: Yes (roberto le leg/xarelto) Endocrine: No Gastrointestinal Disorders: Yes (Reflux, Ulcers) GERD: Yes Glaucoma: No Genitourinary: No Hepatitis: No Hiatal Hernia: No Heparin Induced Thrombocytopen: No Hypertension: Yes Immune Disorder: No Implanted Vascular Access Dvce: No Musculoskeletal: Yes Neurologic: No Psychiatric: Yes Reproductive: No Respiratory: No Immunizations Current: No Myocardial Infarction: Yes Pneumonia: Yes Radiation Therapy: No Sickle Cell Disease: No Thyroid Disease: No Ulcer: Yes Tetanus Vaccination: < 5 Years Influenza Vaccination: Yes Past Surgical History Narrative Surgical The patient's past surgical history is significant for cardiac catheterization in 2015 that reportedly had patent coronary arteries, history of AICD placement. Abdominal Surgery: Yes (EXPLORATORY LAP) AICD: No Appendectomy: No Arteriovenous Shunt: No Body Medical Devices: pacemaker Cholecystectomy: No Coronary Artery Bypass Graft: No Ear Surgery: No Endocrine Surgery: No Eye Surgery: No Gynecologic Surgery: No Hysterectomy: No Insulin Pump: No Joint Replacement: No Oral Surgery: Yes (TEETH EXTRACTIONS) Pacemaker: No Other Surgery: No Family History Family Myocardial Infarction: Yes (MOTHER/GRANDMOTHER) Social History Alcohol Use: Yes (couple beers per day) Tobacco Use: Yes (1/2-1 cigarette daily) Substance Use: No Allergies-Medications (Allergen,Severity, Reaction): Coded Allergies: Fish Containing Products (Verified Allergy, Severe, itching, 11/06/17) iodine (Verified Allergy, Severe, itching, 11/06/17) potassium iodide (Verified Allergy, Severe, itching, 11/06/17) povidone-iodine (Verified Allergy, Severe, itching, 11/06/17) sodium iodide (Verified Allergy, Severe, itching, 11/06/17) Reported Meds & Prescriptions Reported Meds & Active Scripts Active Lasix (Furosemide) 40 Mg Tab 40 Mg PO DAILY Azithromycin 250 Mg Tab 250 Mg PO DAILY 4 Days Gnp Vitamin B-1 (Thiamine HCl) 100 Mg Tab 100 Mg PO DAILY Acetaminophen-Codeine 300-30 mg Tab 2 Tab PO Q4H PRN DO NOT TAKE THIS MEDICINE IF YOU WILL DRIVE A CAR OR USE A MACHINE, ONLY USE IT WHEN RESTING AT HOME. Symbicort Inh (Budesonide/Formoterol Fumarate) 160-4.5 Mcg/Act Aero 1 Puff INH Q12HR Aspirin DR (Aspirin) 81 Mg Tabdr 81 Mg PO DAILY Coreg (Carvedilol) 6.25 Mg Tab 6.25 Mg PO BID Acetaminophen-Codeine 300-30 mg Tab 1 Tab PO Q6HR PRN Reported Ramipril 5 Mg Cap 5 Mg PO DAILY Omeprazole 20 Mg Tab 20 Mg PO DAILY Klor-Con M20 (Potassium Chloride Microencaps) 20 Meq Tab 20 Meq PO DAILY Isosorbide Mononitrate ER (Isosorbide Mononitrate) 30 Mg Tahir 30 Mg PO DAILY Digoxin 0.25 Mg Tab 0.25 Mg PO DAILY Mirtazapine ODT (Mirtazapine) 30 Mg Tab 30 Mg PO HS Quetiapine (Quetiapine Fumarate) 25 Mg Tab 25 Mg PO HS Review of Systems Except as stated in HPI: all other systems reviewed are Neg General / Constitutional: No: Fever Eyes: No: Visual changes HENT: No: Headaches Cardiovascular: Positive: Edema, No: Chest Pain or Discomfort, Dyspnea on exertion Respiratory: No: Shortness of Breath Gastrointestinal: No: Abdominal Pain Genitourinary: No: Dysuria Musculoskeletal: Positive: Myalgias, No: Pain Skin: No Rash Neurologic: No: Weakness, Focal Abnormalities, Change in Mentation, Slurred Speech, Sensory Disturbance Psychiatric: No: Depression Endocrine: No: Polydipsia Hematologic/Lymphatic: No: Easy Bruising Physical Exam Narrative General: The patient is a well-developed well-nourished male in no acute distress. Head and Neck exam: Head is normocephalic atraumatic. Eyes: EOMI, pupils are equal round and reactive to light. Nose: Midline septum with pink mucous membranes Mouth: Dentition unremarkable. Moist mucus membranes. Posterior oropharynx is not erythematous. No tonsillar hypertrophy. Uvula midline. Airway patent. Neck: No palpable lymphadenopathy. No nuchal rigidity. No thyromegaly. Cardiovascular: Regular rate and rhythm without murmurs, gallops, or rubs. Lungs: Clear to auscultation bilaterally. No wheezes, rhonchi, or rales. Abdomen: Soft, without tenderness to palpation in all 4 quadrants of the abdomen. No guarding, rebound, or rigidity. Normal bowel sounds are audible. No tenderness on palpation of McBurney's point. Extremities: No clubbing or cyanosis. The patient has 1+ pitting edema bilateral lower extremities. No calf tenderness on palpation. Negative Homans sign. No palpable cords. 2+ pulses in all 4 extremities. No erythema or warmth on palpation of the skin. Back: No spinous process tenderness to palpation. No costovertebral angle tenderness to palpation. Neurologic Exam: Grossly nonfocal per Skin Exam: No rash noted. Intact skin that is warm and dry. Data Data Last Documented VS Vital Signs Date Time Temp Pulse Resp B/P (MAP) Pulse Ox O2 Delivery O2 Flow Rate FiO2 11/10/17 20:40 16 100 Room Air 11/10/17 19:58 82 11/10/17 16:46 98.3 Orders Orders Electrocardiogram (11/10/17 17:10) Basic Metabolic Panel (Bmp) (11/10/17 17:10) B-Type Natriuretic Peptide (11/10/17 17:10) Complete Blood Count With Diff (11/10/17 17:10) Chest, Pa & Lat (11/10/17 17:10) Us Leg Venous Doppler Bilat (11/10/17 20:01) Hepatic Functional Panel (11/10/17 17:50) Thyroid Stimulating Hormone (11/10/17 17:50) Iv Access Insert/Monitor (11/10/17 20:37) Ecg Monitoring (11/10/17 20:37) Oximetry (11/10/17 20:37) Electrocardiogram (11/10/17 20:37) Ed Discharge Order (11/10/17 21:33) Labs Laboratory Tests Test 11/10/17 17:50 White Blood Count 7.3 TH/MM3 Red Blood Count 4.26 MIL/MM3 Hemoglobin 12.5 GM/DL Hematocrit 37.3 % Mean Corpuscular Volume 87.4 FL Mean Corpuscular Hemoglobin 29.3 PG Mean Corpuscular Hemoglobin Concent 33.5 % Red Cell Distribution Width 14.8 % Platelet Count 200 TH/MM3 Mean Platelet Volume 9.1 FL Neutrophils (%) (Auto) 48.2 % Lymphocytes (%) (Auto) 39.7 % Monocytes (%) (Auto) 10.0 % Eosinophils (%) (Auto) 1.5 % Basophils (%) (Auto) 0.6 % Neutrophils # (Auto) 3.5 TH/MM3 Lymphocytes # (Auto) 2.9 TH/MM3 Monocytes # (Auto) 0.7 TH/MM3 Eosinophils # (Auto) 0.1 TH/MM3 Basophils # (Auto) 0.0 TH/MM3 CBC Comment DIFF FINAL Differential Comment Blood Urea Nitrogen 8 MG/DL Creatinine 0.84 MG/DL Random Glucose 73 MG/DL Total Protein 6.9 GM/DL Albumin 3.1 GM/DL Calcium Level 9.0 MG/DL Alkaline Phosphatase 99 U/L Aspartate Amino Transf (AST/SGOT) 47 U/L Alanine Aminotransferase (ALT/SGPT) 28 U/L Total Bilirubin 1.0 MG/DL Direct Bilirubin 0.3 MG/DL Sodium Level 142 MEQ/L Potassium Level 4.4 MEQ/L Chloride Level 108 MEQ/L Carbon Dioxide Level 26.0 MEQ/L Anion Gap 8 MEQ/L Estimat Glomerular Filtration Rate 121 ML/MIN Indirect Bilirubin 0.7 MG/DL B-Type Natriuretic Peptide 352 PG/ML Thyroid Stimulating Hormone 3rd Gen 1.180 uIU/ML MDM Medical Decision Making Medical Screen Exam Complete: Yes Emergency Medical Condition: Yes Medical Record Reviewed: Yes Interpretation(s) Last Impressions Chest X-Ray 11/10/171709 Signed Impressions: Service Date/Time: Friday, November 10, 2017 17:25 - CONCLUSION: Marked hyperinflation without overt congestive failure, infiltrate or effusion. Marcelo Aguila MD FACR Differential Diagnosis Congestive heart failure exacerbation, versus edema from cor pulmonale, versus hypoalbuminemia, versus DVT, versus myxedema Narrative Course During the course of the patient's emergency department visit, the patient's history, examination, and differential diagnosis were reviewed with the patient. The patient was placed on a county manager with oximetry and frequent blood pressure monitoring. The patient had IV access obtained and blood work sent for analysis. Chest x-ray has been ordered, ultrasound of bilateral lower extremities has been ordered. The patient was initially provided Lasix 20 mg IV 1. The patient's laboratory studies were reviewed and remarkable for a white count of 7.3, hemoglobin 12.5, platelets 200 with 10 monocytes, CMP is remarkable for chloride of 108, glucose 73, direct bilirubin 0.3, AST 47, albumin is 3.1 which could be contributing to the patient's lower extremity edema, TSH 1.18, BNP 352. Radiology studies were reviewed and remarkable for a chest x-ray that shows marked hyperinflation without overt congestive heart failure infiltrate or effusion. Ultrasound of bilateral lower extremities reveals no evidence of DVT. The patient is instructed to increase the protein in his diet. He is instructed regarding the importance of avoiding alcohol and tobacco products. The patient will be started back on his diuretic. He was previously on Lasix 40 twice a day, however he does not appear to need this high of a dose at this time, therefore the patient was given Lasix 40 mg to be taken every morning. He reports having a follow-up appointment with a new primary care physician for November 23. He is encouraged to keep the appointment. The patient is resting comfortably and feels better, is alert and in no distress. The patient's results and examination findings were discussed with the patient. The repeat examination is unremarkable and benign. The history, exam, diagnostic testing, and current condition do not suggest any significant pathology to warrant further testing, continued ED treatment, admission, or surgical evaluation at this point. The vital signs have been stable. The patient does not have uncontrollable pain, intractable vomiting, or other significant symptoms. The patient's condition is stable and appropriate for discharge. The patient will pursue further outpatient evaluation with a primary care physician or other designated or consulting physician as indicated in the discharge instructions. The patient expressed understanding and was agreeable with this plan. Diagnosis Primary Impression: Lower extremity edema Additional Impression: Noncompliance with medication regimen Referrals: Primary Care Physician 1 week Patient Instructions: General Instructions, Leg Edema (ED) Additional Instructions: Please quit smoking and avoid all alcohol use as this can contribute to your heart disease/cardiomyopathy. Elevate your legs when sitting. Wear compression stockings on a daily basis. Med/Other Pt SpecificInfo: Prescription(s) given Scripts Furosemide (Lasix) 40 Mg Tab 40 MG PO DAILY, #14 TAB 0 Refills Prov: Ifeoma Rondon MD 11/10/17 Disposition: 01 DISCHARGE HOME Condition: Stable Ifeoma Rondon MD Nov 10, 2017 20:19
[2017-11-10 20:27] LABS: ALBUMIN 3.1 GM/DL (3.4-5.0)
[2017-11-10 20:30] LABS: DIRECT BILIRUBIN ADULT 0.3 MG/DL (0.0-0.2); INDIRECT BILIRUBIN 0.7 MG/DL (0.0-0.8); TOTAL PROTEIN 6.9 GM/DL (6.4-8.2)
[2017-11-10 20:40] VITALS: RESP 16; O2SAT 100
[2017-11-10] MEDS ORDERED: FURO1TAB60 PO (20:42)
--- NOTE | 2017-11-10 21:09 | RADRPT ---
EXAM DATE/TIME: 11/10/2017 20:42 [facility] COMPARISON: US LEG BILATERAL VENOUS DOPPLER, April 26, 2017, 22:38. INDICATIONS : Bilateral leg swelling. MEDICAL HISTORY : Hypertension. Congestive heart failure. Gastroesophageal reflux disease. Myocardial infarction. Cardi omyopathy. Ulcer. Liver disease. Anxiety. Depression. Cirrhosis. Acute kidney infection. SURGICAL HISTORY : Exploratory laproscopy. ENCOUNTER: Subsequent ACUITY: 1 week PAIN SCORE: 3/10 LOCATION: Bilateral legs. TECHNIQUE: Venous ultrasound of the left and right leg was performed from the inguinal ligament to the proximal calf. Real-time, color Doppler and spectral tracing, compression and augmentation techniques were us ed. FINDINGS: RIGHT LEG: There is normal compressibility of the deep venous system from the inguinal region to the proximal ca lf. No echogenic clot is seen in the lumen of the common femoral, femoral, popliteal, and posterior tibial veins. There is a normal response of the venous system to proximal and distal augmentation an d respiration. LEFT LEG: There is normal compressibility of the deep venous system from the inguinal region to the proximal ca lf. No echogenic clot is seen in the lumen of the common femoral, femoral, popliteal, and posterior tibial veins. There is a normal response of the venous system to proximal and distal augmentation an d respiration. CONCLUSION: No evidence of DVT. Yao Renteria MD on November 10, 2017 at 21:07 Board Certified Radiologist. This report was verified electronically.
[2017-11-10] MEDS ORDERED: FUROSEMIDE 40 MG TAB PO ONE (22:00)
--- NOTE | 2017-11-11 16:11 | EKG ---
Date Performed: 11/10/2017 Time Performed: 17:55:32 PTAGE: 42 years EKG: Sinus rhythm LEFT ATRIAL ENLARGEMENT MARKED LEFT AXIS DEVIATION SEPTAL MYOCARDIAL INFARCTION MODERATE T-WAVE ABNO RMALITY, CONSIDER LATERAL ISCHEMIA ABNORMAL ECG Since the prior tracing, there has been no significan t change NO PREVIOUS TRACING DOCTOR: Willow Harrison Interpretating Date/Time 11/11/2017 16:10:12
== END 2017-11-10 22:07 | disposition home or self-care (01) ==
LOC: NEPE 16:44
DX: R60.0 Localized edema (principal); I42.8 Other cardiomyopathies; I25.2 Old myocardial infarction; I10 Essential (primary) hypertension; F17.210 Nicotine dependence, cigarettes, uncomplicated; K21.9 Gastro-esophageal reflux disease without esophagitis; Z91.14 Patient's other noncompliance with medication regimen
CPT/HCPCS: 71046; 80048; 80076; 83880; 84443; 85025; 93005; 93970

== ENCOUNTER 2018-02-06 17:58 | Observation (INO) | payer OTHER ==
[~2018-02-06] VITALS: Ht 175.3 cm; Wt 55.0 kg
[2018-02-06] VITALS (7 sets, daily range): BP systolic 105–140; BP diastolic 69–83; PULSE 72–91; RESP 14–19; TEMP 99; O2SAT 100
[~2018-02-06 17:58] MED LIST changes: +FURO1TAB60 PO; -FURO40TA PO
[2018-02-06] MEDS ORDERED: SODIUM CHLOR 0.9% 1000 ML INJ 1,000 ML IV ONE (18:45)
[2018-02-06] MEDS ORDERED: SODIUM CHLORIDE 0.9% FLUSH 10 ML FLUSH IVF PRN (18:45)
--- NOTE | 2018-02-06 18:53 | PD ---
HPI Chief Complaint: Numbness/Tingling Time Seen by Provider: 18:22 Travel History International Travel<30 days: No Contact w/Intl Traveler<30days: No Traveled to known affect area: No History of Present Illness HPI Patient is a 42-year-old male with history of hypertension, nonischemic cardiomyopathy, status post AICD placement, history of PE and DVT, history of prior drug abuse, presents the emergency room with multiple complaints. Patient reports that he was at work today, reports that he began to have some numbness to the right side of his face as well as his bilateral forearms and right lower extremity. Patient reports that numbness has improved throughout the day, reports that he wasn't sure why he was numb. Denies headache/ dizzyness. Denies vision changes, denies n/v. Patient reports concerns that his blood pressure to be high as he does have history of hypertension, reports that he is unable to refill his medications until December 102017. Reports concern that his BP may have caused him to have this numbness. Patient also reports that today, he feels as if he may have "overworked himself. 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 Reports that he is feeling exhausted as well as tired. Reports that he did have an episode of shortness of breath on exertion. Patient wanted to make sure he was okay. Denies chest pain, reports only sob on exertion. PFSH Past Medical History Hx Anticoagulant Therapy: Yes Autoimmune Disease: No Blood Disorders: No Anxiety: Yes Depression: Yes Heart Rhythm Problems: Yes Cancer: No Cardiac Catheterization: Yes (Heart md-Charlie Damico DO) Cardiomyopathy: Yes Cardiovascular Problems: Yes High Cholesterol: No Chemotherapy: No Chest Pain: Yes Congestive Heart Failure: No Cirrhosis: Yes Cerebrovascular Accident: No Diabetes: No Diminished Hearing: Yes ([place]) Deep Vein Thrombosis: Yes (roberto le leg/xarelto) Endocrine: No Gastrointestinal Disorders: Yes (Reflux, Ulcers) GERD: Yes Glaucoma: No Genitourinary: No Hepatitis: No Hiatal Hernia: No Heparin Induced Thrombocytopen: No Hypertension: Yes Immune Disorder: No Implanted Vascular Access Dvce: No Musculoskeletal: Yes Neurologic: No Psychiatric: Yes Reproductive: No Respiratory: No Immunizations Current: No Myocardial Infarction: Yes Pneumonia: Yes Radiation Therapy: No Sickle Cell Disease: No Thyroid Disease: No Ulcer: Yes ?: Not Past Surgical History Abdominal Surgery: Yes (EXPLORATORY LAP) AICD: No Appendectomy: No Arteriovenous Shunt: No Body Medical Devices: pacemaker Cholecystectomy: No Coronary Artery Bypass Graft: No Ear Surgery: No Endocrine Surgery: No Eye Surgery: No Gynecologic Surgery: No Hysterectomy: No Insulin Pump: No Joint Replacement: No Oral Surgery: Yes (TEETH EXTRACTIONS) Pacemaker: No Other Surgery: No Family History Family Myocardial Infarction: Yes (MOTHER/GRANDMOTHER) Social History Alcohol Use: Yes (couple beers per day) Tobacco Use: Yes (1/2-1 cigarette daily) Substance Use: No Allergies-Medications (Allergen,Severity, Reaction): Coded Allergies: Fish Containing Products (Verified Allergy, Severe, itching, 02/06/18) iodine (Verified Allergy, Severe, itching, 02/06/18) potassium iodide (Verified Allergy, Severe, itching, 02/06/18) povidone-iodine (Verified Allergy, Severe, itching, 02/06/18) sodium iodide (Verified Allergy, Severe, itching, 02/06/18) Reported Meds & Prescriptions Reported Meds & Active Scripts Active Review of Systems General / Constitutional: No: Fever Eyes: No: Visual changes HENT: No: Headaches Cardiovascular: No: Chest Pain or Discomfort Respiratory: Positive: Shortness of Breath Gastrointestinal: No: Abdominal Pain Genitourinary: No: Dysuria Musculoskeletal: No: Pain Skin: No Rash Neurologic: Positive: Weakness, Paresthesia Psychiatric: No: Depression Endocrine: No: Polydipsia Hematologic/Lymphatic: No: Easy Bruising Physical Exam Narrative GENERAL: Mild distress SKIN: Focused skin assessment warm/dry. HEAD: Atraumatic. Normocephalic. EYES: Pupils equal and round. No scleral icterus. No injection or drainage. ENT: No nasal bleeding or discharge. Mucous membranes pink and moist. NECK: Trachea midline. No JVD. CARDIOVASCULAR: Regular rate and rhythm. No murmur appreciated. RESPIRATORY: No accessory muscle use. Clear to auscultation. Breath sounds equal bilaterally. GASTROINTESTINAL: Abdomen soft, non-tender, nondistended. Hepatic and splenic margins not palpable. MUSCULOSKELETAL: No obvious deformities. No clubbing. No cyanosis. No edema. NEUROLOGICAL: Awake and alert. No obvious cranial nerve deficits. Motor grossly within normal limits. Normal speech. PSYCHIATRIC: Flat mood and affect; insight and judgment normal. Data Data Last Documented VS Vital Signs Date Time Temp Pulse Resp B/P (MAP) Pulse Ox O2 Delivery O2 Flow Rate FiO2 02/06/18 20:55 89 16 117/73 (88) 100 Room Air 02/06/18 18:17 99.0 Orders Orders Complete Blood Count With Diff (02/06/18 18:35) Comprehensive Metabolic Panel (02/06/18 18:35) Magnesium (Mg) (02/06/18 18:35) Prothrombin Time / Inr (Pt) (02/06/18 18:35) Act Partial Throm Time (Ptt) (02/06/18 18:35) Chest, Single Ap (02/06/18 18:35) Ecg Monitoring (02/06/18 18:35) Iv Access Insert/Monitor (02/06/18 18:35) Oximetry (02/06/18 18:35) Sodium Chloride 0.9% Flush (Ns Flush) (02/06/18 18:45) Creatine Kinase (Cpk) (02/06/18 18:35) Sodium Chlor 0.9% 1000 Ml Inj (Ns 1000 M (02/06/18 18:45) Drug Screen, Random Urine (02/06/18 18:38) Ct Brain W/O Iv Contrast(Rout) (02/06/18 18:45) Troponin I (02/06/18 20:03) Furosemide Inj (Lasix Inj) (02/06/18 20:30) Carvedilol (Coreg) (02/06/18 20:30) Digoxin (Lanoxin) (02/06/18 20:30) Ramipril (Altace) (02/06/18 20:30) CKMB (02/06/18 20:03) CKMB% (02/06/18 20:03) Place In Observation (02/06/18 ) Vital Signs (Adult) Q4H (02/06/18 21:09) Activity Oob Ad Pearl (02/06/18 21:09) Advanced Manufacturing Associate / Telemetry .CONTINUOUS (02/06/18 21:09) Intake + Output JOB.QSHIFT (02/06/18 21:09) Diet Heart Healthy (02/07/18 Breakfast) Sodium Chloride 0.9% Flush (Ns Flush) (02/06/18 21:15) Sodium Chloride 0.9% Flush (Ns Flush) (02/07/18 09:00) Ondansetron Inj (Zofran Inj) (02/06/18 21:15) Comprehensive Metabolic Panel (02/07/18 06:00) Complete Blood Count With Diff (02/07/18 06:00) Troponin I (02/07/18 00:00) Troponin I (02/07/18 06:00) Heparin Inj (Heparin Inj) (02/07/18 09:00) Acetaminophen (Tylenol) (02/06/18 21:15) Acetamin-Hydrocod 325-5 Mg (Wellborn 5-325 (02/06/18 21:15) Morphine Inj (Morphine Inj) (02/06/18 21:15) Docusate Sodium-Senna (Sissy-Colace) (02/07/18 09:00) Magnesium Hydroxide Liq (Milk Of Magnesi (02/06/18 21:15) Sennosides (Senokot) (02/06/18 21:15) Bisacodyl Supp (Dulcolax Supp) (02/06/18 21:15) Lactulose Liq (Lactulose Liq) (02/06/18 21:15) Consult Cardiology (02/06/18 ) Aspirin Ec (Ecotrin Ec) (02/07/18 09:00) Carvedilol (Coreg) (02/07/18 09:00) Digoxin (Lanoxin) (02/07/18 09:00) Furosemide (Lasix) (02/07/18 09:00) Isosorbide Mononitrate (Imdur) (02/07/18 09:00) Mirtazapine Odt (Remeron Soltab Odt) (02/07/18 21:00) Quetiapine (Seroquel) (02/07/18 21:00) Ramipril (Altace) (02/07/18 09:00) (Nf) Omeprazole (02/07/18 09:00) Admit Order (Ed Use Only) (02/06/18 ) CKMB (02/07/18 06:30) CKMB% (02/07/18 06:30) Labs Laboratory Tests Test 02/06/18:00 02/06/18 20:03 Urine Opiates Screen NEG Urine Barbiturates Screen NEG Urine Amphetamines Screen NEG Urine Benzodiazepines Screen NEG Urine Cocaine Screen NEG Urine Cannabinoids Screen NEG White Blood Count 5.3 TH/MM3 Red Blood Count 4.56 MIL/MM3 Hemoglobin 12.8 GM/DL Hematocrit 38.9 % Mean Corpuscular Volume 85.2 FL Mean Corpuscular Hemoglobin 28.0 PG Mean Corpuscular Hemoglobin Concent 32.8 % Red Cell Distribution Width 15.1 % Platelet Count 139 TH/MM3 Mean Platelet Volume 8.8 FL Neutrophils (%) (Auto) 73.5 % Lymphocytes (%) (Auto) 19.0 % Monocytes (%) (Auto) 7.3 % Eosinophils (%) (Auto) 0.0 % Basophils (%) (Auto) 0.2 % Neutrophils # (Auto) 3.9 TH/MM3 Lymphocytes # (Auto) 1.0 TH/MM3 Monocytes # (Auto) 0.4 TH/MM3 Eosinophils # (Auto) 0.0 TH/MM3 Basophils # (Auto) 0.0 TH/MM3 CBC Comment DIFF FINAL Differential Comment Prothrombin Time 11.2 SEC Prothromb Time International Ratio 1.1 RATIO Activated Partial Thromboplast Time 24.7 SEC Blood Urea Nitrogen 6 MG/DL Creatinine 1.01 MG/DL Random Glucose 93 MG/DL Total Protein 7.9 GM/DL Albumin 3.8 GM/DL Calcium Level 9.4 MG/DL Magnesium Level 1.2 MG/DL Alkaline Phosphatase 62 U/L Aspartate Amino Transf (AST/SGOT) 100 U/L Alanine Aminotransferase (ALT/SGPT) 35 U/L Total Bilirubin 1.2 MG/DL Sodium Level 140 MEQ/L Potassium Level 4.1 MEQ/L Chloride Level 105 MEQ/L Carbon Dioxide Level 15.5 MEQ/L Anion Gap 20 MEQ/L Estimat Glomerular Filtration Rate 98 ML/MIN Total Creatine Kinase 1339 U/L Creatine Kinase MB 35.1 NG/ML Creatine Kinase MB % 2.6 % Troponin I 0.13 NG/ML MDM Medical Decision Making Medical Screen Exam Complete: Yes Emergency Medical Condition: Yes Medical Record Reviewed: Yes Interpretation(s) Vital Signs Date Time Temp Pulse Resp B/P (MAP) Pulse Ox O2 Delivery O2 Flow Rate FiO2 02/06/18 18:17 99.0 91 16 140/80 (100) 100 Differential Diagnosis TIA, ACS, Arrhythmia, electrolyte abnormality, PE, DVT, drug abuse Narrative Course Labs and studies pending.. Patient signed out to Dr. Linn at change of shift Scripts Furosemide (Lasix) 40 Mg Tab 40 MG PO DAILY for CHF, #30 TAB 1 Refill Prov: Elizabeth Alonso PA-C 02/07/[address] (Aspirin DR) 81 Mg Tabdr 81 MG PO DAILY for CAD, #30 TAB 11 Refills Prov: Elizabeth Alonso PA-C 02/07/18 Carvedilol (Coreg) 6.25 Mg Tab 6.25 MG PO BID for CAD, #60 TAB 1 Refill Prov: Elizabeth Alonso PA-C 02/07/18 Ramipril (Ramipril) 5 Mg Cap 5 MG PO DAILY for CHF, #30 CAP 1 Refill Prov: Elizabeth Alonso PA-C 02/07/18 Omeprazole (Omeprazole) 20 Mg Tab 20 MG PO DAILY for Manage Heartburn, #30 TAB 1 Refill Prov: Elizabeth Alonso PA-C 02/07/18 Potassium Chloride Microencaps (Klor-Con M20) 20 Meq Tab 20 MEQ PO DAILY for Electrolyte Replacement, #30 TAB 1 Refill Prov: Elizabeth Alonso PA-C 02/07/18 Isosorbide Mononitrate ER (Isosorbide Mononitrate ER) 30 Mg Tahir 30 MG PO DAILY for Prevent Chest Pain, #30 TAB 1 Refill Prov: Elizabeth Alonso PA-C 02/07/18 Digoxin (Digoxin) 0.25 Mg Tab 0.25 MG PO DAILY for Regulate Heart Beat, #30 TAB 1 Refill Prov: Elizabeth Alonso PA-C 02/07/18 Mirtazapine ODT (Mirtazapine ODT) 30 Mg Tab 30 MG PO HS for Depression Control, #30 TAB 1 Refill Prov: Elizabeth Alonso PA-C 02/07/18 Quetiapine (Quetiapine) 25 Mg Tab 25 MG PO HS for Control Mood Swing, #30 TAB 1 Refill Prov: Elizabeth Alonso PA-C 02/07/18 Tiffany Hull DO February 06, 2018 18:53
--- NOTE | 2018-02-06 19:30 | RADRPT ---
EXAM DATE/TIME: 02/06/2018 18:39 [facility] COMPARISON: No previous studies available for comparison. INDICATIONS : Short of breath. MEDICAL HISTORY : Hypertension. Congestive heart failure. Gastroesophageal reflux disease. Myocardial infarction. Cardi omyopathy. Ulcer. Liver disease. Anxiety. Depression. Cirrhosis. Acute kidney infection. SURGICAL HISTORY : Pacemaker. Exploratory laparoscopy. ENCOUNTER: Initial ACUITY: 1 day PAIN SCORE: 0/10 LOCATION: Bilateral chest FINDINGS: A single view of the chest demonstrates pacer lead overlying right ventricle. Heart size upper limits normal. No consolidation or effusion. No pneumothorax. Mildly tortuous aorta. CONCLUSION: 1. Pacer lead overlies right ventricle. No acute findings. Yinka Chan MD on February 06, 2018 at 19:27 Board Certified Radiologist. This report was verified electronically.
--- NOTE | 2018-02-06 19:32 | RADRPT ---
EXAM DATE/TIME: 02/06/2018 19:26 [facility] COMPARISON: No previous studies available for comparison. INDICATIONS : Altered mental status. RADIATION DOSE: 35.39 CTDIvol (mGy) MEDICAL HISTORY : Cardiovascular disease. Hypertension. Deep venous thrombosis. SURGICAL HISTORY : None. ENCOUNTER: Initial ACUITY: 1 day PAIN SCALE: 5/10 LOCATION: cranial TECHNIQUE: Multiple contiguous axial images were obtained of the head. Using automated exposure control and adj ustment of the mA and/or kV according to patient size, radiation dose was kept as low as reasonably a chievable to obtain optimal diagnostic quality images. DICOM format image data is available electro nically for review and comparison. FINDINGS: CEREBRUM: The ventricles are normal for age. No evidence of midline shift, mass lesion, hemorrhage or acute in farction. No extra-axial fluid collections are seen. POSTERIOR FOSSA: The cerebellum and brainstem are intact. The 4th ventricle is midline. The cerebellopontine angle i s unremarkable. EXTRACRANIAL: The visualized portion of the orbits is intact. SKULL: The calvaria is intact. No evidence of skull fracture. CONCLUSION: Normal examination for a patient of this age. No significant change has occurred. Yinka Chan MD on February 06, 2018 at 19:29 Board Certified Radiologist. This report was verified electronically.
[2018-02-06 20:21] LABS: AUTOMATED NEUTROPHIL # 3.9 TH/MM3 (1.8-7.7); BASOPHIL % 0.2 % (0.0-2.0); HEMATOCRIT 38.9 % (39.0-51.0); HEMOGLOBIN 12.8 GM/DL (13.0-17.0); MEAN CELL VOLUME 85.2 FL (80.0-100.0); MEAN CORPUSCULAR HGB CONC 32.8 % (32.0-36.0); MEAN PLATELET VOLUME 8.8 FL (7.0-11.0); MONO % 7.3 % (0.0-8.0); MONOCYTE # 0.4 TH/MM3 (0-0.9); NEUT % 73.5 % (16.0-70.0); PLATELET COUNT 139 TH/MM3 (150-450); RED BLOOD COUNT 4.56 MIL/MM3 (4.50-5.90); RED CELL DISTRIBUTION WIDTH 15.1 % (11.6-17.2); WHITE BLOOD COUNT 5.3 TH/MM3 (4.0-11.0)
[2018-02-06] MEDS ORDERED: FUROSEMIDE 40 MG/4 ML VIAL IV PUSH ONE (20:30)
[2018-02-06] MEDS ORDERED: DIGOXIN 0.25 MG TAB PO ONE (20:30)
[2018-02-06] MEDS ORDERED: RAMIPRIL 5 MG CAP PO ONE (20:30)
[2018-02-06] MEDS ORDERED: CARVEDILOL 6.25 MG TAB PO ONE (20:30)
[2018-02-06 20:32] LABS: ALBUMIN 3.8 GM/DL (3.4-5.0); AST (GOT) 100 U/L (15-37); BICARBONATE 15.5 MEQ/L (21.0-32.0); BLOOD UREA NITROGEN 6 MG/DL (7-18); CALCIUM 9.4 MG/DL (8.5-10.1); CHLORIDE 105 MEQ/L (98-107); CREATININE 1.01 MG/DL (0.60-1.30); GLOMERULAR FILTRATION RATE 98 ML/MIN (>89); GLUCOSE,RANDOM 93 MG/DL (74-106); MAGNESIUM 1.2 MG/DL (1.5-2.5); SODIUM (NA) 140 MEQ/L (136-145)
[2018-02-06 20:33] LABS: ALT (GPT) 35 U/L (12-78)
[2018-02-06 20:34] LABS: INTERNATIONAL NORMALIZED RATIO 1.1 RATIO; PROTHROMBIN TIME - PATIENT 11.2 SEC (9.8-11.6)
[2018-02-06 20:47] LABS: ALKALINE PHOSPHATASE 62 U/L (45-117); TOTAL BILIRUBIN ADULT 1.2 MG/DL (0.2-1.0); TOTAL PROTEIN 7.9 GM/DL (6.4-8.2); TROPONIN I 0.13 NG/ML (0.02-0.05)
--- NOTE | 2018-02-06 21:12 | HHI.HP ---
[facility] Primary [facility] Physician Dean Santillan DO Admission Diagnosis Diagnoses: (1) CHF (congestive heart failure) Diagnosis: Principal (2) Elevated troponin Diagnosis: Principal (3) Rhabdomyolysis Diagnosis: Principal (4) Non-compliance Diagnosis: Principal (5) Tobacco abuse Diagnosis: Principal Travel History International Travel<30 Days: No Contact w/Intl Traveler <30 Da: No Traveled to Known Affected Are: No History of Present Illness This is a 42-year-old male with a PMH of Nonischemic Cardiomyopathy (Echo 2017 with EF <20%), s/p AICD, h/o PE/DVT, h/o Substance Abuse and Tobacco Abuse who presented to the ER w/ c/o feeling like "I over did myself at work". 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 Does admit to non-compliance w/ medications for approx 2wks. States he has an upcoming appointment w/ a Supervisor [employer] on February 14, but cannot recall his name. Denies fever, cough or chest pain. On arrival, BP 140/80, HR 91, O2 sat 100% RA, Temp 99.0. CBC essentially unremarkable except for platelets 139, previously 200 on 11/10/2017. Chemistry essentially unremarkable. Troponin 0.13, similar in comparison to previous labs. CPK 1334. Denies drug use. CT Head normal. CXR with no acute findings. S/p Lasix 40mg IV in ER. Review of Systems Except as stated in HPI: all other systems reviewed are Neg ROS: 14 point review of systems otherwise negative. Past Family Social History Past Medical History PMH: Nonischemic Cardiomyopathy (Echo 10/10/2017 with EF <20%), s/p AICD, h/o PE/ DVT, h/o Substance Abuse and Tobacco Abuse Past Surgical History PAST SURGICAL HISTORY: AICD, Dental Extraction Allergies: Coded Allergies: Fish Containing Products (Verified Allergy, Severe, itching, 02/06/18) iodine (Verified Allergy, Severe, itching, 02/06/18) potassium iodide (Verified Allergy, Severe, itching, 02/06/18) povidone-iodine (Verified Allergy, Severe, itching, 02/06/18) sodium iodide (Verified Allergy, Severe, itching, 02/06/18) Family History PAST FAMILY HISTORY: Reviewed. No h/o DM or CAD Social History PAST SOCIAL HISTORY: Drinks few beers daily. Positive for tobacco. Denies drug use. Physical Exam Vital Signs Vital Signs Date Time Temp Pulse Resp B/P (MAP) Pulse Ox O2 Delivery O2 Flow Rate FiO2 02/06/18 20:55 89 16 117/73 (88) 100 Room Air 02/06/18 20:21 81 16 126/73 (90) 100 Room Air 02/06/18 18:39 84 18 131/83 (99) 100 Room Air 02/06/18 18:17 99.0 91 16 140/80 (100) 100 Physical Exam PE: GENERAL: Thin middle-aged black male in no acute distress. Very flat affect, minimally conversive HEENT: PERRLA, EOMI. No scleral icterus or conjunctival pallor. No lid lag or facial droop. CARDIOVASCULAR: Regular rate and rhythm. No obvious murmurs to auscultation. No chest tenderness to palpation. RESPIRATORY: No obvious rhonchi or wheezing. Clear to auscultation. Breath sounds equal bilaterally. GASTROINTESTINAL: Abdomen soft, non-tender, nondistended. BS normal. MUSCULOSKELETAL: Extremities without clubbing, cyanosis, or edema. No obvious deformities. NEUROLOGICAL: Awake, alert and oriented x4. No focal neurologic deficits. Moving both upper and lower extremities spontaneously. Laboratory Laboratory Tests Test 02/06/18 20:03 White Blood Count 5.3 Red Blood Count 4.56 Hemoglobin 12.8 Hematocrit 38.9 Mean Corpuscular Volume 85.2 Mean Corpuscular Hemoglobin 28.0 Mean Corpuscular Hemoglobin Concent 32.8 Red Cell Distribution Width 15.1 Platelet Count 139 Mean Platelet Volume 8.8 Neutrophils (%) (Auto) 73.5 Lymphocytes (%) (Auto) 19.0 Monocytes (%) (Auto) 7.3 Eosinophils (%) (Auto) 0.0 Basophils (%) (Auto) 0.2 Neutrophils # (Auto) 3.9 Lymphocytes # (Auto) 1.0 Monocytes # (Auto) 0.4 Eosinophils # (Auto) 0.0 Basophils # (Auto) 0.0 CBC Comment DIFF FINAL Differential Comment Prothrombin Time 11.2 Prothromb Time International Ratio 1.1 Activated Partial Thromboplast Time 24.7 Blood Urea Nitrogen 6 Creatinine 1.01 Random Glucose 93 Total Protein 7.9 Albumin 3.8 Calcium Level 9.4 Magnesium Level 1.2 Alkaline Phosphatase 62 Aspartate Amino Transf (AST/SGOT) 100 Alanine Aminotransferase (ALT/SGPT) 35 Total Bilirubin 1.2 Sodium Level 140 Potassium Level 4.1 Chloride Level 105 Carbon Dioxide Level 15.5 Anion Gap 20 Estimat Glomerular Filtration Rate 98 Total Creatine Kinase 1339 Creatine Kinase MB 35.1 Creatine Kinase MB % 2.6 Troponin I 0.13 Result Diagram: 02/06/18200202/06/182002 Grey VTE Risk Assessment [place] VTE Risk Assessment: No/Low Risk (score <= 1) Caprini Risk Assessment Model Point Value = 1 Point Value = 2 Point Value = 3 Point Value = 5 Age 41-60 Minor surgery BMI > 25 kg/m2 Swollen legs Varicose veins or History of unexplained or recurrent spontaneous Oral contraceptives or hormone replacement Sepsis (< 1 month) Serious lung disease, including pneumonia (< 1 month) Abnormal pulmonary function Acute myocardial infarction Congestive heart failure (< 1 month) History of inflammatory bowel disease Medical patient at bed rest Age 61-74 Arthroscopic surgery Major open surgery (> 45 min) Laparoscopic surgery (> 45 min) Malignancy Confined to bed (> 72 hours) Immobilizing plaster cast Central venous access Age >= 75 History of VTE Family history of VTE Factor V Leiden Prothrombin [id number] Lupus anticoagulant Anticardiolipin antibodies Elevated serum homocysteine Heparin-induced thrombocytopenia Other congenital or acquired thrombophilia Stroke (< 1 month) Elective arthroplasty Hip, pelvis, or leg fracture Acute spinal cord injury (< 1 month) Prophylaxis Regimen Total Risk Factor Score Risk Level Prophylaxis Regimen 0-1 Low Early ambulation 2 Moderate Order ONE of the following: *Sequential Compression Device (SCD) *Heparin 5000 units SQ BID 3-4 Higher Order ONE of the following medications: *Heparin 5000 units SQ TID *Enoxaparin/Lovenox 40 mg SQ daily (WT < 150 kg, CrCl > 30 mL/min) *Enoxaparin/Lovenox 30 mg SQ daily (WT < 150 kg, CrCl > 10-29 mL/min) *Enoxaparin/Lovenox 30 mg SQ BID (WT < 150 kg, CrCl > 30 mL/min) AND/OR *Sequential Compression Device (SCD) 5 or more Highest Order ONE of the following medications: *Heparin 5000 units SQ TID (Preferred with Epidurals) *Enoxaparin/Lovenox 40 mg SQ daily (WT < 150 kg, CrCl > 30 mL/min) *Enoxaparin/Lovenox 30 mg SQ daily (WT < 150 kg, CrCl > 10-29 mL/min) *Enoxaparin/Lovenox 30 mg SQ BID (WT < 150 kg, CrCl > 30 mL/min) AND *Sequential Compression Device (SCD) Assessment and Plan Problem List: (1) CHF (congestive heart failure) ICD Code: I50.9 - CHF (congestive heart failure) Status: Acute (2) Elevated troponin ICD Code: R74.8 - Elevated troponin level Status: Chronic (3) Rhabdomyolysis ICD Code: M62.82 - Rhabdomyolysis (4) Non-compliance ICD Code: Z91.19 - Patient's noncompliance with other medical treatment and regimen (5) Tobacco abuse ICD Code: Z72.0 - Tobacco abuse Status: Chronic Assessment and Plan A/P: 1. CHF: Acute on Chronic. Systolic. H/o NICM, Echo 10/10/17 w/ EF <20%, non- compliant w/ meds. CXR w/ no acute findings, images reviewed by me, no significant fluid overload on exam. S/p Lasix 40mg IV in ER, continue w/ home Lasix 40mg qd, monitor I/O. 2. Elevated Trop: Trop 0.13, EKG w/ no acute ischemia, no c/o chest pain, trop similar in comparison to previous labs, will place on telemetry, check serial cardiac enzymes for trend, resume home medications. Consult Cardio for further evaluation. 3. Rhabdomyolysis: CPK 1334, reports dizziness after working outside, CT Head w/ no acute findings, images reviewed by me. Check repeat CPK for trend, D5NS bolus-caution w/ CHF, Check Urine Drug Screen and U/a. 4. Non-Compliance: Pt reports non-compliance w/ all medications for approx 2 wks, will resume home medications, Rx at discharge. 5. Tobacco Abuse: Pt counselled. No NicoDerm to avoid vasoconstriction, Ativan prn if needed. 6. DVT Prophylaxis: Heparin sq 7. Social work for d/c planning as needed. 8. Case discussed w/ ER physician at length, labs/records/imaging reviewed by me. Stephania Rich MD February 06, 2018 21:12
[2018-02-06] MEDS ORDERED: LACTULOSE SYRUP 20 GM/30 ML CUP PO PRN (21:15)
[2018-02-06] MEDS ORDERED: BISACODYL 10 MG SUPP RECTAL PRN (21:15)
[2018-02-06] MEDS ORDERED: MORPHINE SULFATE 2 MG/ML SYRINGE IV PUSH PRN (21:15)
[2018-02-06] MEDS ORDERED: ACETAMINOPHEN/HYDROcodone 325 MG/5 MG TAB PO PRN (21:15)
[2018-02-06] MEDS ORDERED: ONDANSETRON HCL 4 MG/2 ML VIAL IVP PRN (21:15)
[2018-02-06] MEDS ORDERED: SODIUM CHLORIDE 0.9% FLUSH 10 ML FLUSH IV FLUSH PRN (21:15)
[2018-02-06] MEDS ORDERED: SENNOSIDES 8.6 MG TAB PO PRN (21:15)
[2018-02-06] MEDS ORDERED: MAGNESIUM HYDROXIDE SUSP 30 ML CUP PO PRN (21:15)
[2018-02-06] MEDS ORDERED: ACETAMINOPHEN 325 MG TAB PO PRN (21:15)
[2018-02-06] MEDS ORDERED: MORPHINE SULFATE 4 MG/ML INJ IV PRN (21:45)
--- NOTE | 2018-02-06 21:50 | PD ---
Data Data Last Documented VS Vital Signs Date Time Temp Pulse Resp B/P (MAP) Pulse Ox O2 Delivery O2 Flow Rate FiO2 02/06/18 20:55 89 16 117/73 (88) 100 Room Air 02/06/18 18:17 99.0 Orders Orders Electrocardiogram (02/06/18 18:35) Complete Blood Count With Diff (02/06/18 18:35) Comprehensive Metabolic Panel (02/06/18 18:35) Magnesium (Mg) (02/06/18 18:35) Prothrombin Time / Inr (Pt) (02/06/18 18:35) Act Partial Throm Time (Ptt) (02/06/18 18:35) Chest, Single Ap (02/06/18 18:35) Ecg Monitoring (02/06/18 18:35) Iv Access Insert/Monitor (02/06/18 18:35) Oximetry (02/06/18 18:35) Sodium Chloride 0.9% Flush (Ns Flush) (02/06/18 18:45) Creatine Kinase (Cpk) (02/06/18 18:35) Sodium Chlor 0.9% 1000 Ml Inj (Ns 1000 M (02/06/18 18:45) Drug Screen, Random Urine (02/06/18 18:38) Ct Brain W/O Iv Contrast(Rout) (02/06/18 18:45) Troponin I (02/06/18 20:03) Furosemide Inj (Lasix Inj) (02/06/18 20:30) Carvedilol (Coreg) (02/06/18 20:30) Digoxin (Lanoxin) (02/06/18 20:30) Ramipril (Altace) (02/06/18 20:30) CKMB (02/06/18 20:03) CKMB% (02/06/18 20:03) Place In Observation (02/06/18 ) Vital Signs (Adult) Q4H (02/06/18 21:09) Activity Oob Ad Pearl (02/06/18 21:09) Satellite Dish Technician / Telemetry .CONTINUOUS (02/06/18 21:09) Intake + Output JOB.QSHIFT (02/06/18 21:09) Diet Heart Healthy (02/07/18 Breakfast) Sodium Chloride 0.9% Flush (Ns Flush) (02/06/18 21:15) Sodium Chloride 0.9% Flush (Ns Flush) (02/07/18 09:00) Ondansetron Inj (Zofran Inj) (02/06/18 21:15) Comprehensive Metabolic Panel (02/07/18 06:00) Complete Blood Count With Diff (02/07/18 06:00) Troponin I (02/07/18 00:00) Troponin I (02/07/18 06:00) Heparin Inj (Heparin Inj) (02/07/18 09:00) Acetaminophen (Tylenol) (02/06/18 21:15) Acetamin-Hydrocod 325-5 Mg (Spearman 5-325 (02/06/18 21:15) Morphine Inj (Morphine Inj) (02/06/18 21:15) Docusate Sodium-Senna (Sissy-Colace) (02/07/18 09:00) Magnesium Hydroxide Liq (Milk Of Magnesi (02/06/18 21:15) Sennosides (Senokot) (02/06/18 21:15) Bisacodyl Supp (Dulcolax Supp) (02/06/18 21:15) Lactulose Liq (Lactulose Liq) (02/06/18 21:15) Consult Cardiology (02/06/18 ) Aspirin Ec (Ecotrin Ec) (02/07/18 09:00) Carvedilol (Coreg) (02/07/18 09:00) Digoxin (Lanoxin) (02/07/18 09:00) Furosemide (Lasix) (02/07/18 09:00) Isosorbide Mononitrate (Imdur) (02/07/18 09:00) Mirtazapine Odt (Remeron Soltab Odt) (02/07/18 21:00) Quetiapine (Seroquel) (02/07/18 21:00) Ramipril (Altace) (02/07/18 09:00) (Nf) Omeprazole (02/07/18 09:00) (Hub Use Only)Inp Phy Cons/Ref (02/06/18 ) Admit Order (Ed Use Only) (02/06/18 ) Labs Laboratory Tests Test 02/06/18 20:03 White Blood Count 5.3 TH/MM3 Red Blood Count 4.56 MIL/MM3 Hemoglobin 12.8 GM/DL Hematocrit 38.9 % Mean Corpuscular Volume 85.2 FL Mean Corpuscular Hemoglobin 28.0 PG Mean Corpuscular Hemoglobin Concent 32.8 % Red Cell Distribution Width 15.1 % Platelet Count 139 TH/MM3 Mean Platelet Volume 8.8 FL Neutrophils (%) (Auto) 73.5 % Lymphocytes (%) (Auto) 19.0 % Monocytes (%) (Auto) 7.3 % Eosinophils (%) (Auto) 0.0 % Basophils (%) (Auto) 0.2 % Neutrophils # (Auto) 3.9 TH/MM3 Lymphocytes # (Auto) 1.0 TH/MM3 Monocytes # (Auto) 0.4 TH/MM3 Eosinophils # (Auto) 0.0 TH/MM3 Basophils # (Auto) 0.0 TH/MM3 CBC Comment DIFF FINAL Differential Comment Prothrombin Time 11.2 SEC Prothromb Time International Ratio 1.1 RATIO Activated Partial Thromboplast Time 24.7 SEC Blood Urea Nitrogen 6 MG/DL Creatinine 1.01 MG/DL Random Glucose 93 MG/DL Total Protein 7.9 GM/DL Albumin 3.8 GM/DL Calcium Level 9.4 MG/DL Magnesium Level 1.2 MG/DL Alkaline Phosphatase 62 U/L Aspartate Amino Transf (AST/SGOT) 100 U/L Alanine Aminotransferase (ALT/SGPT) 35 U/L Total Bilirubin 1.2 MG/DL Sodium Level 140 MEQ/L Potassium Level 4.1 MEQ/L Chloride Level 105 MEQ/L Carbon Dioxide Level 15.5 MEQ/L Anion Gap 20 MEQ/L Estimat Glomerular Filtration Rate 98 ML/MIN Total Creatine Kinase 1339 U/L Creatine Kinase MB 35.1 NG/ML Creatine Kinase MB % 2.6 % Troponin I 0.13 NG/ML [facility] Supervised Visit with GAURANG: Yes Narrative Course This is a 42-year-old man with history of hypertension, nonischemic cardiomyopathy with AICD placement an EF of 25%, history of DVT PE in the past, very poor historian, who presents with vague symptoms of feeling worse with some shortness of breath ongoing for the past several days. Has been out of his medication for the past couple weeks. He states he gets it through his Medicaid but cannot get in until February 09, truly unclear why he ran out early. He may be taking extra when he feels bad. He was initially seen by Dr. Hull and signed out to me to follow-up on the results of diagnostic testing. Diagnostic testing shows CBC is unremarkable CMP with mildly elevated CK, mildly elevated troponin, total bili 1.2, some acidosis with a bicarb of 15.5 anion gap of 20 Troponins 0.13 Chest x-ray unremarkable Head CT normal examination FINAL: Patient with elevated troponin, likely some acute on chronic systolic heart failure. Given a dose of diuresis in the ED here. CK is a little bit elevated. Possible cocaine use. Drug screens pending. Will admit for observation. Kali Mack MD February 06, 2018 21:50
[2018-02-06] MEDS ORDERED: DEXT 5%-NACL 0.9% 500 ML INJ 500 ML IV ONE (22:15)
[2018-02-07] VITALS (7 sets, daily range): BP systolic 99–120; BP diastolic 58–76; PULSE 56–73; RESP 16–20; TEMP 97.9–98.1; O2SAT 96–99
[2018-02-07 08:02] LABS: AUTOMATED NEUTROPHIL # 3.1 TH/MM3 (1.8-7.7); BASOPHIL % 0.3 % (0.0-2.0); EOSINOPHIL % 0.7 % (0.0-4.0); HEMATOCRIT 42.8 % (39.0-51.0); HEMOGLOBIN 14.2 GM/DL (13.0-17.0); LYMPH % 34.9 % (9.0-44.0); LYMPHOCYTE # 2.1 TH/MM3 (1.0-4.8); MEAN CELL VOLUME 84.7 FL (80.0-100.0); MEAN CORPUSCULAR HEMOGLOBIN 28.1 PG (27.0-34.0); MEAN CORPUSCULAR HGB CONC 33.2 % (32.0-36.0); MEAN PLATELET VOLUME 9.4 FL (7.0-11.0); MONO % 11.6 % (0.0-8.0); MONOCYTE # 0.7 TH/MM3 (0-0.9); NEUT % 52.5 % (16.0-70.0); PLATELET COUNT 144 TH/MM3 (150-450); RED BLOOD COUNT 5.05 MIL/MM3 (4.50-5.90); RED CELL DISTRIBUTION WIDTH 15.1 % (11.6-17.2)
[2018-02-07 08:15] LABS: ALBUMIN 3.4 GM/DL (3.4-5.0); ALT (GPT) 33 U/L (12-78); AST (GOT) 93 U/L (15-37); BLOOD UREA NITROGEN 8 MG/DL (7-18); CHLORIDE 106 MEQ/L (98-107); CREATININE 0.87 MG/DL (0.60-1.30); GLOMERULAR FILTRATION RATE 117 ML/MIN (>89); GLUCOSE,RANDOM 91 MG/DL (74-106); SODIUM (NA) 140 MEQ/L (136-145)
[2018-02-07 08:29] LABS: ALKALINE PHOSPHATASE 60 U/L (45-117); TOTAL BILIRUBIN ADULT 1.7 MG/DL (0.2-1.0); TOTAL PROTEIN 7.6 GM/DL (6.4-8.2); TROPONIN I 0.11 NG/ML (0.02-0.05)
[2018-02-07] MEDS ORDERED: DOCUSATE SODIUM 50 MG/SENNA 8.6 MG TAB PO SCH (09:00)
[2018-02-07] MEDS ORDERED: ASPIRIN EC 81 MG TABEC PO SCH (09:00)
[2018-02-07] MEDS ORDERED: PANTOPRAZOLE SOD 20 MG DELAYED RELEASE TAB PO SCH (09:00)
[2018-02-07] MEDS ORDERED: FUROSEMIDE 40 MG TAB PO SCH (09:00)
[2018-02-07] MEDS ORDERED: ISOSORBIDE MONONITRATE 30 MG CR TAB (IMDUR) PO SCH (09:00)
[2018-02-07] MEDS ORDERED: HEPARIN SODIUM - SQ 10,000 UNITS/ML VIAL SQ SCH (09:00)
[2018-02-07] MEDS ORDERED: NON-FORMULARY DRUG (Omeprazole 20 MG) PO SCH (09:00)
[2018-02-07] MEDS ORDERED: DIGOXIN 0.25 MG TAB PO SCH (09:00)
[2018-02-07] MEDS ORDERED: CARVEDILOL 6.25 MG TAB PO SCH (09:00)
[2018-02-07] MEDS ORDERED: SODIUM CHLORIDE 0.9% FLUSH 10 ML FLUSH IV FLUSH SCH (09:00)
[2018-02-07] MEDS ORDERED: RAMIPRIL 5 MG CAP PO SCH (09:00)
--- NOTE | 2018-02-07 10:25 | HHI.PR ---
Subjective Remarks Follow up for rhabdo, CHF, elevated troponin, noncompliance. The patient is seen sleeping in bed, easily awakens. He states he feels much better today. He believes he was just overworked yesterday. 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 Denies any lightheadedness, dizziness, chest pain, or shortness of breath. Denies any lower extremity edema. He is requesting to go home today. Objective Vitals Vital Signs Date Time Temp Pulse Resp B/P (MAP) Pulse Ox O2 Delivery O2 Flow Rate FiO2 02/07/18 07:34 98.0 56 18 120/76 (91) 97 02/07/18 03:52 98.1 65 16 103/68 (80) 98 02/07/18 03:07 72 02/07/18 01:01 57 02/07/18 00:29 98.1 67 16 99/64 (76) 99 02/06/18 23:05 02/06/18 23:00 72 14 105/69 (81) 100 Room Air 02/06/18 22:30 78 16 110/74 (86) 100 Room Air 02/06/18 21:30 72 19 125/82 (96) 100 Room Air 02/06/18 20:55 89 16 117/73 (88) 100 Room Air 02/06/18 20:21 81 16 126/73 (90) 100 Room Air 02/06/18 18:39 84 18 131/83 (99) 100 Room Air 02/06/18 18:17 99.0 91 16 140/80 (100) 100 I/O 02/06/18 02/06/18 02/06/18 02/07/18 02/07/18 02/07/18 07:00 15:00 23:00 07:00 15:00 23:00 Intake Total 591 ml Balance 591 ml Intake Oral 591 ml # Voids 1 # Bowel Movements 1 Result Diagram: 02/07/1862902/07/18629 Imaging Last Impressions Head CT 02/06/181844 Signed Impressions: Service Date/Time: Tuesday, February 06, 2018 19:26 - CONCLUSION: Normal examination for a patient of this age. No significant change has occurred. Yinka Chan MD Chest X-Ray 02/06/181834 Signed Impressions: Service Date/Time: Tuesday, February 06, 2018 18:39 - CONCLUSION: 1. Pacer lead overlies right ventricle. No acute findings. Yinka Chan MD Objective Remarks GENERAL: Thin middle aged AA male patient in NAD. SKIN: Warm and dry. No rash. HEENT: Normocephalic. Atraumatic.Pupils equal and round. Mucous membranes pink and moist. NECK: Supple. Trachea midline. CARDIOVASCULAR: Regular rate and rhythm. No murmur appreciated. RESPIRATORY: No accessory muscle use. Clear to auscultation. Breath sounds equal bilaterally. GASTROINTESTINAL: Abdomen soft, non-tender, nondistended. Normoactive bowel sounds x4. MUSCULOSKELETAL: No obvious deformities. Extremities without clubbing, cyanosis , or edema. No calf tenderness bilaterally. NEUROLOGICAL: Awake and alert. No obvious cranial nerve deficits. Motor grossly within normal limits. Moving all extremities spontaneously. Normal speech. PSYCHIATRIC: Flat affect, calm mood; insight and judgment normal. Medications and IVs Current Medications Medications (Trade) Dose Ordered Sig/Talib Route Start Time Stop Time Status Last Admin (NS Flush) 2 ml UNSCH PRN IV FLUSH 02/06/18 21:15 (NS Flush) 2 ml BID IV FLUSH 02/07/18 09:00 02/07/18 09:53 (Zofran Inj) 4 mg Q6H PRN IVP 02/06/18 21:15 (Heparin Inj) 5,000 units Q12H SQ 02/07/18 09:00 02/07/18 09:53 (Tylenol) 650 mg Q6H PRN PO 02/06/18 21:15 (Stanton 5-325 Mg) 1 tab Q4H PRN PO 02/06/18 21:15 (Sissy-Colace) 1 tab BID PO 02/07/18 09:00 02/07/18 09:53 (Milk Of Magnesia Liq) 30 ml Q12H PRN PO 02/06/18 21:15 (Senokot) 17.2 mg Q12H PRN PO 02/06/18 21:15 (Dulcolax Supp) 10 mg DAILY PRN RECTAL 02/06/18 21:15 (Lactulose Liq) 30 ml DAILY PRN PO 02/06/18 21:15 (Ecotrin Ec) 81 mg DAILY PO 02/07/18 09:00 02/07/18 09:52 (Coreg) 6.25 mg BID PO 02/07/18 09:00 02/07/18 09:52 (Lanoxin) 0.25 mg DAILY PO 02/07/18 09:00 02/07/18 09:52 (Lasix) 40 mg DAILY PO 02/07/18 09:00 02/07/18 09:52 (Imdur) 30 mg DAILY PO 02/07/18 09:00 02/07/18 09:52 (Remeron Soltab Odt) 30 mg HS PO 02/07/18 21:00 (SEROquel) 25 mg HS PO 02/07/18 21:00 (Altace) 5 mg DAILY PO 02/07/18 09:00 02/07/18 09:52 (Morphine Inj) 2 mg Q3H PRN IV 02/06/18 21:45 (Protonix) 20 mg DAILY PO 02/07/18 09:00 02/07/18 09:53 A/P Problem List: (1) CHF (congestive heart failure) ICD Code: I50.9 - CHF (congestive heart failure) Status: Acute (2) Elevated troponin ICD Code: R74.8 - Elevated troponin level Status: Chronic (3) Rhabdomyolysis ICD Code: M62.82 - Rhabdomyolysis (4) Non-compliance ICD Code: Z91.19 - Patient's noncompliance with other medical treatment and regimen (5) Tobacco abuse ICD Code: Z72.0 - Tobacco abuse Status: Chronic Assessment and Plan 42-year-old male with a PMH of Nonischemic Cardiomyopathy (Echo 10/10/2017 with EF <20%), s/p AICD, h/o PE/DVT, h/o Substance Abuse and Tobacco Abuse who presented to the ER w/ c/o feeling like "I over did myself at work". 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 Does admit to non-compliance w/ medications for approx 2wks. Acute Exacerbation of Chronic Systolic CHF: H/o NICM, Echo 10/10/17 w/ EF <20%, non-compliant w/ meds. -CXR w/ no acute findings, images reviewed by me, no significant fluid overload on exam. -S/p Lasix 40mg IV in ER, continue w/ home Lasix 40mg qd -monitor I/O. -continue patient's BB, LLOYD, aspirin, imdur, digoxin -cardiology consulted Elevated Trop: Trop 0.13, EKG w/ no acute ischemia, no c/o chest pain, trop similar in comparison to previous labs. -troponins elevated by flat at 0.13 --> 0.13 --> 0.11 -troponin also elevated in setting of elevated CPK, however CKMB% wnl -monitor on telemetry -Consult Cardio for further evaluation. Rhabdomyolysis: CPK 1334, reports dizziness after working outside in the heat -CT Head w/ no acute findings, images reviewed by me. -Trend CPK, decreased to 910 today -S/p D5NS bolus-caution w/ CHF -urine drug screen negative -patient's symptoms resolved, CPK trending down Non-Compliance: Pt reports non-compliance w/ all medications for approx 2 wks -resume home medications, will give new prescriptions at discharge. Tobacco Abuse: Pt counselled. -No NicoDerm to avoid vasoconstriction, Ativan prn if needed. DVT Prophylaxis: Heparin sq Discharge Planning Likely discharge today if cleared by cardiology. 1500hrs: Patient seen by cardiology, discussed with Dr. Ames, cleared for discharge. Refilled all of his prescriptions. Outpatient f/up with Dr. Meléndez. 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 Meléndez as scheduled Elizabeth Alonso PA-C February 07, 2018 10:25
[2018-02-07] MEDS ORDERED: FURO1TAB60 PO (10:27)
[2018-02-07] MEDS ORDERED: DIGO0.25 PO (10:27)
[2018-02-07] MEDS ORDERED: QUET1TAB7 PO (10:27)
[2018-02-07] MEDS ORDERED: CARV6.25 PO (10:27)
[2018-02-07] MEDS ORDERED: OMEP20TA93 PO (10:27)
[2018-02-07] MEDS ORDERED: ISOS30TA3 PO (10:27)
[2018-02-07] MEDS ORDERED: KLOR20TA3 PO (10:27)
[2018-02-07] MEDS ORDERED: RAMI5CAP PO (10:27)
[2018-02-07] MEDS ORDERED: MIRT1TAB44 PO (10:27)
[2018-02-07] MEDS ORDERED: ECASA81 PO (10:27)
--- NOTE | 2018-02-07 10:28 | HHI.DCPOC ---
Discharge Care Plan Diagnosis: (1) Chronic systolic CHF (congestive heart failure) (2) Cardiomyopathy (3) Non-compliance (4) Tobacco abuse (5) Rhabdomyolysis Goals to Promote Your Health * To prevent worsening of your condition and complications * To maintain your health at the optimal level Directions to Meet Your Goals Take your medications as prescribed Follow your dietary instruction Follow activity as directed Keep your appointments as scheduled Take your immunizations and boosters as scheduled If your symptoms worsen call your PCP, if no PCP go to Urgent Care Center or Emergency Room Smoking is Dangerous to Your Health. Avoid second hand smoke Call the 24-hour hour crisis hotline for domestic abuse at Elizabeth Alonso PA-C February 07, 2018 10:28 am
--- NOTE | 2018-02-07 13:54 | EKG ---
Date Performed: 02/06/2018 Time Performed: 18:53:33 PTAGE: 42 years EKG: Sinus rhythm POSSIBLE LEFT ATRIAL ENLARGEMENT LEFT ANTERIOR FASCICULAR BLOCK SEPTAL MYOCARDIAL INFARCTION MODERAT E T-WAVE ABNORMALITY, CONSIDER LATERAL ISCHEMIA ABNORMAL ECG INTERPRETATION BASED ON A DEFAULT AGE OF 40 YEARS PREVIOUS TRACING 11/10/2017 17.55 Since the previous tracing, no significant change noted DOCTOR: Randy Ames Interpretating Date/Time 02/07/2018 13:53:43
--- NOTE | 2018-02-07 15:22 | MB ---
cc: Randy Ames MD DATE: 02/07/2018 REASON FOR CONSULTATION: CHF and chronically elevated troponin. HISTORY OF PRESENT ILLNESS: The patient is a pleasant 42-year-old gentleman with a history of a severe nonischemic cardiomyopathy, status post defibrillator placement, who says he has an appointment with his orthopedic surgeon this week (he cannot tell me who is going to be seeing). He says he has been out of his medications over the last several weeks since misplacing them when moving apartments. He presented mainly due to feeling overheated. He now feels better. He has not had any chest pain, shortness of breath, lightheadedness or dizziness. PAST MEDICAL HISTORY: 1. Ischemic cardiomyopathy with ejection fraction of less than 20%. 2. Defibrillator placement. 3. Tobacco abuse. CURRENT MEDICATIONS: 1. Remeron. 2. Seroquel. 3. Coreg 6.25 mg b.i.d. 4. Digoxin. 5. Lasix 40 mg p.o. daily. 6. Imdur 30 mg daily. 7. Altace 5 mg daily. ALLERGIES: 1. FISH . 2. IODINE. 3. POTASSIUM. PHYSICAL EXAMINATION: VITAL SIGNS: Afebrile, pulse 68, respiratory rate 20, BP 110/76, satting 98. GENERAL: Pleasant, thin, gentleman in no distress. NECK: No JVD. LUNGS: Clear to auscultation bilaterally. HEART: Regular rate and rhythm. No murmurs appreciated. ABDOMEN: Benign. EXTREMITIES: No edema. LABORATORY DATA: White count 6.0, hematocrit 42.8, platelets 144. Sodium 140, potassium 3.5, chloride 106, bicarbonate 23.0, BUN 8, creatinine 0.87, glucose 91. Troponins are flat in the 0.11-0.13 range, similar to prior presentations. BNP is 910. Toxicology screen was negative. IMAGING STUDIES: Chest x-ray shows no acute findings. EKG shows sinus rhythm with diffuse ST-T changes. IMPRESSION AND RECOMMENDATIONS: Mild congestive heart failure exacerbation. The patient with a known nonischemic cardiomyopathy, worked up previously ,presents after not having his medications for several weeks. He was given Lasix in the Emergency Department and restarted on his home medications. He is now asymptomatic and asking to be discharged home. He has a followup appointment this next week with a orthopedic surgeon, though he is not sure whom he is seeing at this point. From my standpoint, he is stable to be discharged home on his current medical regimen. Thank you again for the opportunity to participate in this patient's care. MD BISI Vieyra/ASHISH , 03:01 PM , 03:21 PM
[2018-02-07] MEDS ORDERED: MIRTAZAPINE ODT 30 MG TAB PO SCH (21:00)
[2018-02-07] MEDS ORDERED: QUEtiapine FUMARATE 25 MG TAB PO SCH (21:00)
== END 2018-02-07 15:48 | disposition home or self-care (01) ==
LOC: NEPE 17:58 → NEDA 21:21 → NEPHCDU 02-07 00:21
PROVIDERS: ADMIT Hospitalist; ATTEND Hospitalist
DX: I50.23 Acute on chronic systolic (congestive) heart failure (principal); R74.8 Abnormal levels of other serum enzymes; I11.0 Hypertensive heart disease with heart failure; I25.5 Ischemic cardiomyopathy; I25.10 Atherosclerotic heart disease of native coronary artery without angina pectoris; K21.9 Gastro-esophageal reflux disease without esophagitis; M62.82 Rhabdomyolysis; E87.2 Acidosis; I25.2 Old myocardial infarction; K74.60 Unspecified cirrhosis of liver; F17.210 Nicotine dependence, cigarettes, uncomplicated; Z79.899 Other long term (current) drug therapy; Z91.14 Patient's other noncompliance with medication regimen; Z86.711 Personal history of pulmonary embolism; Z86.718 Personal history of other venous thrombosis and embolism; Z95.810 Presence of automatic (implantable) cardiac defibrillator
CPT/HCPCS: 70450; 71045; 80053; 80307; 82550; 82552; 83735; 84484; 85025; 85610; 85730; 93005; 96361; 96372; 96374; 99285; G0378; J1644; J1940; J7042

== ENCOUNTER 2018-08-23 13:43 | Inpatient (IN) ==
[2018-08-23] MEDS ORDERED: Sod Chloride 0.9% Inj 1,000 ML IV.SIG ONE (14:23)
[2018-08-23 14:47] LABS: Baso % (Auto) 0.5 % (0.0-2.0); Eos % (Auto) 0.7 % (0.0-4.0); Hematocrit 37.5 % (39.0-51.0); Hemoglobin 12.7 gm/dL (13.0-17.0); Lymph # (Auto) 1.6 th/mm3 (1.0-4.8); Lymph % (Auto) 32.5 % (9.0-44.0); Mean Corpuscular HGB Conc 33.9 % (32.0-36.0); Mean Corpuscular Volume 91.6 fL (80.0-100.0); Mean Platelet Volume 9.7 fL (7.0-11.0); Mono # (Auto) 0.7 th/mm3 (0.0-0.9); Mono % (Auto) 14.3 % (0.0-8.0); Neut # (Auto) 2.6 th/mm3 (1.8-7.7); Platelet Count 114 th/mm3 (150-450); Red Blood Count 4.09 mil/mm3 (4.50-5.90); Red Cell Distribution Width 13.8 % (11.6-17.2)
--- NOTE | 2018-08-23 15:12 | ED ---
HPI General Chief complaint: Nausea/Vomiting/Diarrhea Stated complaint: GI Time Seen by Provider: 08/23/18 14:05 Source: patient Mode of arrival: ambulatory Limitations: no limitations History of Present Illness HPI narrative: She comes in complaining of generalized weakness associated with nausea and vomiting, has a history of pacemaker TX and apparently liver cirrhosis. patient does drink regularly. patient denies any active fever/cp/ abd pain/flank pain/ Onset (ago): day(s) (2) Relieving factors: none Exacerbating factors: none Associated symptoms: Reports malaise Treatments prior to arrival: Reports none Related Data Home Medications Medication Instructions Recorded Confirmed carvedilol 12.5 mg PO BID 08/23/18 08/23/18 digoxin 0.25 mg PO DAILY 08/23/18 08/23/18 furosemide [Lasix] 40 mg PO BID 08/23/18 08/23/18 isosorbide mononitrate 30 mg PO DAILY 08/23/18 08/23/18 mirtazapine 30 mg PO HS 08/23/18 08/23/18 potassium chloride 20 meq PO DAILY 08/23/18 08/23/18 quetiapine [Seroquel] 100 mg PO HS 08/23/18 08/23/18 ramipril 5 mg PO DAILY 08/23/18 08/23/18 rivaroxaban [Xarelto] 15 mg PO QPM 08/23/18 08/23/18 Allergies Allergy/AdvReac Type Severity Reaction Status Date / Time Fish Containing Products Allergy Severe itching Verified 08/23/18 14:03 iodine Allergy Severe itching Verified 08/23/18 14:03 potassium iodide Allergy Severe itching Verified 08/23/18 14:03 povidone-iodine Allergy Severe itching Verified 08/23/18 14:03 sodium iodide Allergy Severe itching Verified 08/23/18 14:03 Review of Systems ROS: all other systems reviewed are negative [facility] Medical History Medical History Cirrhosis of liver (Acute) DVT (deep venous thrombosis) (Acute) Gastric ulcer (Acute) History of placement of internal cardiac defibrillator (Acute) Non-ischemic cardiomyopathy (Acute) Pulmonary emboli (Acute) Heart attack (Acute) Pacemaker (Acute) Social History Social History Substance History: No History of Abuse Second Hand Smoke Exposure: No Smoking Status: Current every day smoker Tobacco Type: Cigarettes How Often Do You Have a Drink Containing Alcohol: 4 or more times a week Recent Travel in [facility] within the Last 8 Weeks: No Recent Out of Country Travel within the Last 8 Weeks: No Immunization History Tetanus Immunization: >5 Years Exam Narrative Exam Narrative: GENERAL: Well-nourished, well-developed patient in no apparent distress. SKIN: Warm and dry. HEAD: Atraumatic. Normocephalic. EYES: Pupils equal and round. No scleral icterus. No injection or drainage. ENT: No nasal bleeding or discharge. Mucous membranes pink and moist. NECK: Trachea midline. No JVD. CARDIOVASCULAR: Regular rate and rhythm. no rubs or gallops RESPIRATORY: No accessory muscle use. Clear to auscultation. Breath sounds equal bilaterally. GASTROINTESTINAL: Abdomen soft, non-tender, nondistended. No rebound or guarding MUSCULOSKELETAL: Extremities without clubbing, cyanosis, or edema. No obvious deformities. NEUROLOGICAL: Awake and alert. No obvious cranial nerve deficits. Motor grossly within normal limits. Five out of 5 muscle strength in the arms and legs. Normal speech. PSYCHIATRIC: Appropriate mood and affect; insight and judgment normal. Course Initial Documented Vital Signs Temperature 98.7 F 08/23/18 13:53 Pulse Rate 72 08/23/18 13:53 Respiratory Rate 20 08/23/18 13:53 Blood Pressure 126/76 08/23/18 13:53 Pulse Oximetry 95 08/23/18 13:53 Last Documented Vital Signs Temperature 98.7 F 08/23/18 13:53 Pulse Rate 82 08/23/18 16:59 Respiratory Rate 21 08/23/18 14:06 Blood Pressure 125/92 H 08/23/18 16:59 Pulse Oximetry 100 08/23/18 14:06 Medical Decision Making [facility] Narrative Medical decision making narrative: No evidence of any leukocytosis or anemia or left shift however there is thrombocytopenia 114,000 Electrolytes are all within normal limits Normal kidney and pancreatic functions Elevated AST of 167, ALT 85, bilirubin 1.7, magnesium 1.3, CK-MB percent 1.8 not elevated, troponin 0 0.11 Digoxin level less than 0.[address] read by radiologist as diffuse atrophy which is unexpected in a patient of this age no acute infarct hemorrhage CT abdomen pelvis read by radiologist as hepatomegaly, cardiomegaly, mild chronic compression deformity involving T12 no acute intra-abdominal process. Medical Screen Exam Complete: Yes Emergency Medical Condition: Yes Medical Records Medical records reviewed: Yes I reviewed the patient's medical records. Lab Data Lab results reviewed: Yes I reviewed the patient's lab results. Result diagrams: 08/23/18 14:35 08/23/18 14:35 Lab Results 08/23/18 08/23/18 08/23/18 Range/Units 14:35 14:35 14:35 WBC 5.0 (4.0-11.0) th/mm3 RBC 4.09 L (4.50-5.90) mil/mm3 Hgb 12.7 L (13.0-17.0) gm/dL Hct 37.5 L (39.0-51.0) % MCV 91.6 (80.0-100.0) fL MCH 31.0 (27.0-34.0) pg MCHC 33.9 (32.0-36.0) % RDW 13.8 (11.6-17.2) % Plt Count 114 L (150-450) th/mm3 MPV 9.7 (7.0-11.0) fL Neut % (Auto) 52.0 (16.0-70.0) % Lymph % (Auto) 32.5 (9.0-44.0) % Patrick % (Auto) 14.3 H (0.0-8.0) % Eos % (Auto) 0.7 (0.0-4.0) % Baso % (Auto) 0.5 (0.0-2.0) % Neut # (Auto) 2.6 (1.8-7.7) th/mm3 Lymph # (Auto) 1.6 (1.0-4.8) th/mm3 Patrick # (Auto) 0.7 (0.0-0.9) th/mm3 Eos # (Auto) 0.0 (0.0-0.4) th/mm3 Baso # (Auto) 0.0 (0.0-0.2) th/mm3 WBC Differential . Differential Comment Auto diff final Sodium 141 (136-145) meq/L Potassium 5.1 (3.5-5.1) meq/L Chloride 106 (98-107) meq/L Carbon Dioxide 25.8 (21.0-32.0) meq/L Anion Gap 9 (5-15) meq/L BUN 11 (7-18) mg/dL Creatinine 1.08 (0.60-1.30) mg/dL Estimated GFR Greater than 89 (>89) mL/min Random Glucose 83 (74-106) mg/dL Calcium 8.7 (8.5-10.1) mg/dL Magnesium 1.3 L (1.5-2.5) mg/dL Total Bilirubin 1.7 H (0.2-1.0) mg/dL AST 167 H (15-37) U/L ALT 85 H (12-78) U/L Alkaline Phosphatase 66 (45-117) U/L Total Creatine Kinase 532 H (39-308) U/L CK-MB (CK-2) 9.6 H (0.5-3.6) ng/mL CK-MB (CK-2) % 1.8 (0.0-4.0) % Troponin I 0.11 H (0.02-0.05) ng/mL Total Protein 7.7 (6.4-8.2) g/dL Albumin 3.6 (3.4-5.0) g/dL Lipase 87 (73-393) U/L Digoxin Less than 0.1 L (0.8-2.0) ng/mL Imaging Data Radiologist's impression: Abdomen/Pelvis CT 08/23/18 14:23 CONCLUSION: 1. Hepatomegaly. 2. Cardiomegaly. 3. Mild chronic compression deformity involving T12. 4. No acute intra-abdominal process. Head CT 08/23/18 14:23 CONCLUSION: 1. Diffuse atrophy which is unexpected in a patient of this age. 2. No acute infarct, acute hemorrhage, midline shift or extra-axial fluid collections. . Discharge Plan Discharge Disposition Patient Disposition: 30 Still Patient Discharge Condition Condition: Stable Discharge Details Diagnosis: Elevated troponin, Generalized weakness Physicians Team ED Provider: Neto Wu Primary Care Provider: Primary Care Pj,Michelle Attending Provider: Ifeoma Median Status ED Status: Admitted Observation Patient
--- NOTE | 2018-08-23 15:13 | CT ---
EXAM DATE: 08/23/2018 3:08 PM EST AGE/SEX: 43 years / Male INDICATIONS: Numbness in hands today. CLINICAL DATA: This is the patient's initial encounter. Patient reports that signs and symptoms have been present for 1 day and indicates a pain score of 0/10. MEDICAL/SURGICAL HISTORY: Myocardial infarction. None. RADIATION DOSE: 43.07 CTDI (mGy) [place] [facility] [place]. [facility] [place]23/[place]. . TECHNIQUE: CT of the head without contrast. Using automated exposure control and adjustment of the mA and/or kV according to patient size, radiation dose was kept as low as reasonably achievable to ob tain optimal diagnostic quality images. DICOM format image data is available electronically for revi ew and comparison. FINDINGS: Cerebrum: Diffuse atrophy is noted which is unexpected in a patient of this age. No acute infarct, a cute hemorrhage, midline shift or extra-axial fluid collections are noted. Posterior Fossa: The cerebellum and brainstem are intact. The 4th ventricle is midline. The cerebe llopontine angle is unremarkable. Extracranial: The visualized portion of the orbits is intact. Skull: The calvaria is intact. No evidence of skull fracture. CONCLUSION: 1. Diffuse atrophy which is unexpected in a patient of this age. 2. No acute infarct, acute hemorrhage, midline shift or extra-axial fluid collections. . Electronically signed by: Flakito Dempsey MD 08/23/2018 3:12 PM EST
--- NOTE | 2018-08-23 15:16 | CT ---
EXAM DATE: 08/23/2018 3:10 PM EST AGE/SEX: 43 years / Male INDICATIONS: Diffuse abdomen pain today. CLINICAL DATA: This is the patient's initial encounter. Patient reports that signs and symptoms have been present for 1 day and indicates a pain score of 7/10. MEDICAL/SURGICAL HISTORY: Myocardial infarction. None. RADIATION DOSE: 4.5 CTDI (mGy) COMPARISON: [facility] [place], CT ABDOMEN & PELVIS W/O CONTRAST, 05/02/2017. [facility] [place], CT ABDOMEN & PELVIS W/O CONT RAST, 04/19/2016. . TECHNIQUE: Multiple contiguous axial images were obtained through the abdomen. Images were obtained using multiple row detector helical technique. Using automated exposure control and adjustment of the mA and/or kV according to patient size, radiation dose was kept as low as reasonably achievable to o btain optimal diagnostic quality images. DICOM format image data is available electronically for rev iew and comparison. FINDINGS: Lower Lungs: The visualized lower lungs are clear. Cardiomegaly is noted. Liver: The liver is enlarged. The liver has a homogeneous density without space-occupying lesion. The re is no dilation of the biliary tree. Spleen: Homogeneous density without enlargement. Pancreas: Unremarkable without mass or calcification. Kidneys: Normal in size and shape. No evidence of mass or hydronephrosis. Adrenal Glands: Unremarkable. Aorta: The aorta and proximal iliac vessels are grossly unremarkable without aneurysmal dilation. Bowel/Mesentery: The bowel loops are grossly unremarkable. The cecum and sigmoid colon have a normal configuration. Abdominal Wall: Intact. Retroperitoneum: No evidence of adenopathy in the retrocrural, para-aortic, or deep pelvic regions. Bladder: Contours are smooth. Reproductive Organs: No abnormal masses or calcifications seen. Inguinal: The inguinal region is unremarkable without evidence of adenopathy. Bony Structures: Mild chronic compression deformity involving T12 is noted. CONCLUSION: 1. Hepatomegaly. 2. Cardiomegaly. 3. Mild chronic compression deformity involving T12. 4. No acute intra-abdominal process. Electronically signed by: Flakito Dempsey MD 08/23/2018 3:15 PM EST
[2018-08-23 15:25] LABS: Alanine Aminotransferase 85 U/L (12-78); Albumin 3.6 g/dL (3.4-5.0); Alkaline Phosphatase 66 U/L (45-117); Anion Gap 9 meq/L (5-15); Aspartate Aminotransferase 167 U/L (15-37); Blood Urea Nitrogen 11 mg/dL (7-18); Calcium 8.7 mg/dL (8.5-10.1); Carbon Dioxide 25.8 meq/L (21.0-32.0); Chloride 106 meq/L (98-107); Creatine Kinase 532 U/L (39-308); Glomerular Filtration Rate Greater Than 89 mL/min (>89); Glucose,Random 83 mg/dL (74-106); Lipase 87 U/L (73-393); Magnesium 1.3 mg/dL (1.5-2.5); Sodium 141 meq/L (136-145); Total Protein 7.7 g/dL (6.4-8.2); Troponin I 0.11 ng/mL (0.02-0.05)
[2018-08-23 15:26] LABS: Potassium 5.1 meq/L (3.5-5.1)
[2018-08-23 15:38] LABS: CKMB Percent 1.8 % (0.0-4.0); Creatine Kinase MB 9.6 ng/mL (0.5-3.6)
[2018-08-23] MEDS ORDERED: Enoxaparin Inj 60 MG/0.6 ML Syringe SQ ONE (15:38)
--- NOTE | 2018-08-23 18:02 | P.HP ---
History of Present Illness Service: [facility] Primary Care Physician: No Primary Care Physician Chief Complaint: "Not feeling good today" History of Present Illness: 43-year-old male with PMH significant for non-ischemic cardiomyopathy, CA, cirrhosis, DVT, PE, tobacco and alcohol abuse who presents to the ED after not feeling well today when he woke up. Patient reports multiple past medical problems however is a very poor historian and unable to provide specific dates or names of specialists who he follows up with. States that he has been out of his medication for about the past 3-4 days. Patient reports that this morning he woke up and was feeling weak along with some numbness in his hands. He also reports some dizziness, lightheadedness, and generally weak. He also had one episode of emesis this morning, none since then has been able to drink fluids without any nausea. He does report a history of gastric ulcers. Denies any abdominal pain, tenderness, diarrhea or dysuria. He has intermittent shortness of breath which is unchanged, denies any cough, fevers, chills, headaches, or muscle aches. 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 He denies any chest pain, pressure or palpitations. Patient reports he does not feel well and also feels "dehydrated". He is requesting something for back pain, states that he frequently has back pain at home and takes Tylenol for this. Denies any leg numbness, weakness, fecal or urinary incontinence. He voices no other acute concerns or complaints at the moment. - Diagnosis (1) Alcohol abuse (2) Non-compliance (3) Liver cirrhosis (4) Elevated troponin (5) Generalized weakness Review of Systems All other systems reviewed negative except as stated [facility] - History History Provided By: Patient - Medical History Medical History: Medical History (Last Updated 08/23/18 @ 18:24 by Ping Puga) Cirrhosis of liver DVT (deep venous thrombosis) Gastric ulcer History of placement of internal cardiac defibrillator Non-ischemic cardiomyopathy Pulmonary emboli Heart attack Pacemaker - Social History I have reviewed the patient's Social History: Yes - Tobacco History Second Hand Smoke Exposure: No Tobacco Use In Past 30 Days: Yes Smoking Status: Current every day smoker Tobacco Type: Cigarettes - Alcohol History How Often Do You Have a Drink Containing Alcohol: 4 or more times a week - Substance Use History Substance History: No History of Abuse - Travel History Recent Travel in the [place] Within the Last 8 Weeks: No Recent Travel Out of the Country Within the Last 8 Weeks: No - Immunization History Tetanus Immunization: >5 Years Medications and Allergies Active Medications: Active Medications Sodium Chloride (Ns Flush) 2 ml IV.FLUSH PRN PRN PRN Reason: FLUSH AFTER USING IV ACCESS Allergies Allergy/AdvReac Type Severity Reaction Status Date / Time Fish Containing Products Allergy Severe itching Verified 08/23/18 14:03 iodine Allergy Severe itching Verified 08/23/18 14:03 potassium iodide Allergy Severe itching Verified 08/23/18 14:03 povidone-iodine Allergy Severe itching Verified 08/23/18 14:03 sodium iodide Allergy Severe itching Verified 08/23/18 14:03 Home Medications Medication Instructions Recorded Confirmed Type carvedilol 12.5 mg PO BID 08/23/18 08/23/18 History digoxin 0.25 mg PO DAILY 08/23/18 08/23/18 History furosemide [Lasix] 40 mg PO BID 08/23/18 08/23/18 History isosorbide mononitrate 30 mg PO DAILY 08/23/18 08/23/18 History mirtazapine 30 mg PO HS 08/23/18 08/23/18 History potassium chloride 20 meq PO DAILY 08/23/18 08/23/18 History quetiapine [Seroquel] 100 mg PO HS 08/23/18 08/23/18 History ramipril 5 mg PO DAILY 08/23/18 08/23/18 History rivaroxaban [Xarelto] 15 mg PO QPM 08/23/18 08/23/18 History Exam Vital signs: Vital Signs 08/23/18 13:53 08/23/18 14:06 08/23/18 16:59 Temperature 98.7 F Pulse Rate 72 89 82 Respiratory Rate 20 21 Blood Pressure 126/76 127/90 125/92 H Pulse Oximetry 95 100 Intake & Output 08/22/18 08/23/18 08/23/18 18:59 06:59 18:59 Intake Total 1000 / 1000 Balance 1000 / 1000 Weight 54.431 kg Intake: IV 1000 / 1000 NS Inj 1,000 ML @ Wide Open IV. 1000 / 1000 SIG BOLUS ONE Rx#:[id number] Narrative: GENERAL: Well-developed thin AA male resting in bed in no acute distress. SKIN: Warm and dry. HEAD: Atraumatic. Normocephalic. EYES: Pupils equal and round. Scleral jaundice. No injection or drainage. ENT: No nasal bleeding or discharge. Mucous membranes pink and moist. NECK: Trachea midline. No JVD. CARDIOVASCULAR: Regular rate and rhythm. RESPIRATORY: No accessory muscle use. Clear to auscultation. Breath sounds equal bilaterally. GASTROINTESTINAL: Abdomen soft, non-tender, nondistended. + Bowel sounds MUSCULOSKELETAL: Extremities without clubbing, cyanosis, or edema. No obvious deformities. NEUROLOGICAL: Awake, alert, oriented x3. No obvious cranial nerve deficits, hard of hearing. Motor grossly within normal limits. Five out of 5 muscle strength in the arms and legs. Normal speech. PSYCHIATRIC: Appropriate mood and affect; insight and judgment normal. Results - Labs CBC & Chem 7: 08/23/18 14:35 08/23/18 14:35 Labs: Laboratory Results - last 24 hr 08/23/18 08/23/18 08/23/18 14:35 14:35 14:35 WBC 5.0 RBC 4.09 L Hgb 12.7 L Hct 37.5 L MCV 91.6 MCH 31.0 MCHC 33.9 RDW 13.8 Plt Count 114 L MPV 9.7 Neut % (Auto) 52.0 Lymph % (Auto) 32.5 Wake % (Auto) 14.3 H Eos % (Auto) 0.7 Baso % (Auto) 0.5 Neut # (Auto) 2.6 Lymph # (Auto) 1.6 Wake # (Auto) 0.7 Eos # (Auto) 0.0 Baso # (Auto) 0.0 WBC Differential . Differential Comment Auto diff final Sodium 141 Potassium 5.1 Chloride 106 Carbon Dioxide 25.8 Anion Gap 9 BUN 11 Creatinine 1.08 Estimated GFR Greater than 89 Random Glucose 83 Calcium 8.7 Magnesium 1.3 L Total Bilirubin 1.7 H AST 167 H ALT 85 H Alkaline Phosphatase 66 Total Creatine Kinase 532 H CK-MB (CK-2) 9.6 H CK-MB (CK-2) % 1.8 Troponin I 0.11 H Total Protein 7.7 Albumin 3.6 Lipase 87 Digoxin Less than 0.1 L - Imaging Impressions Abdomen/Pelvis CT 08/23/18 14:23 CONCLUSION: 1. Hepatomegaly. 2. Cardiomegaly. 3. Mild chronic compression deformity involving T12. 4. No acute intra-abdominal process. Head CT 08/23/18 14:23 CONCLUSION: 1. Diffuse atrophy which is unexpected in a patient of this age. 2. No acute infarct, acute hemorrhage, midline shift or extra-axial fluid collections. . Caprini VTE Risk Assessment Caprini VTE Risk Assessment: No/Low Risk (score <= 1) Caprini Risk Assessment Model: Point Value = 1 Point Value = 2 Point Value = 3 Point Value = 5 Age 41-60 Minor surgery BMI > 25 kg/m2 Swollen legs Varicose veins or History of unexplained or recurrent spontaneous Oral contraceptives or hormone replacement Sepsis (< 1 month) Serious lung disease, including pneumonia (< 1 month) Abnormal pulmonary function Acute myocardial infarction Congestive heart failure (< 1 month) History of inflammatory bowel disease Medical patient at bed rest Age 61-74 Arthroscopic surgery Major open surgery (> 45 min) Laparoscopic surgery (> 45 min) Malignancy Confined to bed (> 72 hours) Immobilizing plaster cast Central venous access Age >= 75 History of VTE Family history of VTE Factor V Leiden Prothrombin [id number] Lupus anticoagulant Anticardiolipin antibodies Elevated serum homocysteine Heparin-induced thrombocytopenia Other congenital or acquired thrombophilia Stroke (< 1 month) Elective arthroplasty Hip, pelvis, or leg fracture Acute spinal cord injury (< 1 month) Prophylaxis Regimen: Total Risk Factor Score Risk Level Prophylaxis Regimen 0-1 Low Early ambulation 2 Moderate Order ONE of the following: *Sequential Compression Device (SCD) *Heparin 5000 units SQ BID 3-4 Higher Order ONE of the following medications: *Heparin 5000 units SQ TID *Enoxaparin/Lovenox 40 mg SQ daily (WT < 150 kg, CrCl > 30 mL/min) *Enoxaparin/Lovenox 30 mg SQ daily (WT < 150 kg, CrCl > 10-29 mL/min) *Enoxaparin/Lovenox 30 mg SQ BID (WT < 150 kg, CrCl > 30 mL/min) AND/OR *Sequential Compression Device (SCD) 5 or more Highest Order ONE of the following medications: *Heparin 5000 units SQ TID (Preferred with Epidurals) *Enoxaparin/Lovenox 40 mg SQ daily (WT < 150 kg, CrCl > 30 mL/min) *Enoxaparin/Lovenox 30 mg SQ daily (WT < 150 kg, CrCl > 10-29 mL/min) *Enoxaparin/Lovenox 30 mg SQ BID (WT < 150 kg, CrCl > 30 mL/min) AND *Sequential Compression Device (SCD) Assessment and Plan - Assessment (1) Alcohol abuse Code(s): F10.10 - Alcohol abuse, uncomplicated Status: Acute (2) Non-compliance Code(s): Z91.19 - Patient's noncompliance with other medical treatment and regimen Status: Acute (3) Liver cirrhosis Code(s): K74.60 - Unspecified cirrhosis of liver Status: Acute (4) Elevated troponin Code(s): R74.8 - Abnormal levels of other serum enzymes Status: Acute (5) Generalized weakness Code(s): R53.1 - Weakness Status: Acute - Plan 43-year-old male with PMH significant for non-ischemic cardiomyopathy, CA, cirrhosis, DVT, PE, tobacco and alcohol abuse who presents to the ED after not feeling well today when he woke up. Nausea/vomiting ?gastroenteritis vs PUD -BMP stable with hypomagnesemia, patient provided with 1 L IV fluids in the emergency department -CT of abdomen pelvis with noted hepatomegaly, cardiomegaly, chronic compression deformity involving T12, no other acute intra-abdominal process. -One episode of emesis this morning, none since then, tolerating oral intake. -Pepcid twice daily, antiemetics as needed Liver cirrhosis Alcohol abuse -T bili 1.7 with elevated AST and ALT -CT of abdomen pelvis with no acute findings -Thrombocytopenia platelets 114, likely secondary to cirrhosis, no evidence of bleeding. Add ammonia level to labs. -Continue supportive care for the moment -CIWA, alcohol cessation encouraged Elevated troponins -Patient with chronically elevated troponins in the past. -Seen and evaluated by Dr. Elise in February of this year with no interventions -Patient denies any chest pain or discomfort at the moment, EKG pending -Patient received Lovenox and aspirin in the emergency department, will hold off as patient currently not having any chest pain. -Continue to monitor on telemetry -Continue cardiac medications -Trend troponin and EKGs, consult cardiology if necessary Nonischemic cardiomyopathy w/ AICD in place Echo 10/10/17 with EF<20% -Patient does not appear to be fluid overloaded, chronic shortness of breath unchanged -Monitor on telemetry -Resume beta-kash, Lasix, digoxin Generalized weakness Dizziness -Mild anemia noted on CBC H&H 12.7/37.5 -Status post IV fluids in the ED BP stable -CT of the head with noted diffuse atrophy unexpected for patient's age, no other acute abnormality. -Possibly related to mild dehydration -Consult PT for further evaluation and recommendations Hypomagnesemia -Replace orally, recheck labs in the a.m. History of PE/DVT -Continue patient's Xarelto, dose indication for PE/DVT recurrences 10 mg daily Back pain -Trial of Lidoderm patch, consult PT Tobacco abuse -Smoking cessation encouraged DVT prophylaxisXarelto Discussed Condition With: Discussed with and patient
[2018-08-23] MEDS ORDERED: Acetaminophen 325 MG Tablet PO PRN (18:07)
[2018-08-23] MEDS ORDERED: Bisacodyl 10 MG Supp RECTAL PRN (18:07)
[2018-08-23] MEDS ORDERED: Haloperidol Inj 5 MG/ML Ampul IV.PUSH PRN (18:23)
[2018-08-23] MEDS ORDERED: LORazepam 1 MG Tablet PO PRN (18:23)
[2018-08-23] MEDS ORDERED: Lidocaine 5% Patch T-DERMAL SCH (19:00)
[2018-08-23] MEDS: Carvedilol 12.5 MG Tablet PO SCH (20:42)
[2018-08-23] MEDS: Senna/Docusate Sodium 8.6/50 MG Tablet PO SCH (20:43)
[2018-08-23] MEDS: Famotidine 20 MG Tablet PO SCH (20:43)
[2018-08-23] MEDS: Magnesium Oxide 400 MG Tablet PO SCH (20:43)
[2018-08-23] MEDS: Furosemide 40 MG Tablet PO SCH (20:43)
[2018-08-23] MEDS ORDERED: QUEtiapine 100 MG Tablet PO SCH (21:00)
[2018-08-23] MEDS ORDERED: Mirtazapine 15 MG Tablet PO SCH (21:00)
[2018-08-24 03:03] LABS: Baso % (Auto) 0.7 % (0.0-2.0); Eos % (Auto) 1.2 % (0.0-4.0); Hematocrit 36.8 % (39.0-51.0); Hemoglobin 12.7 gm/dL (13.0-17.0); Lymph # (Auto) 1.5 th/mm3 (1.0-4.8); Lymph % (Auto) 38.8 % (9.0-44.0); Mean Corpuscular HGB Conc 34.4 % (32.0-36.0); Mean Corpuscular Hemoglobin 30.9 pg (27.0-34.0); Mean Corpuscular Volume 89.9 fL (80.0-100.0); Mean Platelet Volume 9.9 fL (7.0-11.0); Mono # (Auto) 0.4 th/mm3 (0.0-0.9); Mono % (Auto) 11.4 % (0.0-8.0); Neut # (Auto) 1.8 th/mm3 (1.8-7.7); Neut % (Auto) 47.9 % (16.0-70.0); Platelet Count 97 th/mm3 (150-450); Red Cell Distribution Width 13.7 % (11.6-17.2); White Blood Count 3.8 th/mm3 (4.0-11.0)
[2018-08-24 03:13] LABS: Anion Gap 13 meq/L (5-15); Blood Urea Nitrogen 10 mg/dL (7-18); Calcium 8.6 mg/dL (8.5-10.1); Carbon Dioxide 26.2 meq/L (21.0-32.0); Chloride 101 meq/L (98-107); Glomerular Filtration Rate Greater Than 89 mL/min (>89); Glucose,Random 83 mg/dL (74-106); Magnesium 1.3 mg/dL (1.5-2.5); Potassium 3.5 meq/L (3.5-5.1); Sodium 140 meq/L (136-145)
[2018-08-24 03:57] LABS: Platelet Morphology Normal (Normal)
[2018-08-24] MEDS ORDERED: Enoxaparin Inj 60 MG/0.6 ML Syringe SQ SCH (04:00)
[2018-08-24] MEDS ORDERED: Digoxin 250 MCG Tablet PO SCH (09:00)
[2018-08-24] MEDS ORDERED: Isosorbide Mononitrate 30 MG ER 24HR Tablet (Imdur) PO SCH (09:00)
[2018-08-24] MEDS ORDERED: Rivaroxaban 10 MG Tablet PO SCH (09:00)
[2018-08-24] MEDS ORDERED: Mag Sulf 1 gm/100 ml Premix 100 ML IV.SIG ONE (09:00)
[2018-08-24] MEDS: Famotidine 20 MG Tablet PO SCH (09:33)
[2018-08-24] MEDS: Furosemide 40 MG Tablet PO SCH (09:33)
[2018-08-24] MEDS: Carvedilol 12.5 MG Tablet PO SCH (09:34)
[2018-08-24] MEDS: Magnesium Oxide 400 MG Tablet PO SCH (09:34)
[2018-08-24] MEDS: Senna/Docusate Sodium 8.6/50 MG Tablet PO SCH (09:35)
--- NOTE | 2018-08-24 09:39 | P.AMA ---
AMA Note - Diagnosis (1) Alcohol abuse (2) Non-compliance (3) Liver cirrhosis (4) Elevated troponin (5) Generalized weakness Recommended Treatment Course: IV magnesium, telemetry, PT evaluation, neuro checks AMA Statement: Patient Satya Valdivia has decided to leave the hospital against medical advice. This patient has the capacity to refuse care and understands the risks of leaving, including permanent disability and/or , and has had an opportunity to ask questions about his/her condition. The patient has been informed that he/she may return for care at any time, and follow up has been arranged/advised. Discharge Disposition: Against Medical Advice Patient Condition on Discharge: Stable
--- NOTE | 2018-08-24 09:43 | P.PNIM ---
Subjective Interval history: The patient said that he felt fine and wanted to sign out AGAINST MEDICAL ADVICE. He denied any chest pain. He said he had numbness in his arms but that has resolved. Discussed with nursing at the bedside. Physical Exam Vital signs: Vital Signs 08/23/18 13:53 08/23/18 14:06 08/23/18 16:59 Temperature 98.7 F Pulse Rate 72 89 82 Respiratory Rate 20 21 Blood Pressure 126/76 127/90 125/92 H Pulse Oximetry 95 100 08/23/18 19:01 08/23/18 21:35 08/23/18 22:00 Temperature 97.4 F L Pulse Rate 61 64 Respiratory Rate 18 Blood Pressure 110/75 Pulse Oximetry 99 100 08/23/18 22:48 08/23/18 23:00 08/24/18 00:00 Temperature 96.9 F L Pulse Rate 72 56 L 59 L Respiratory Rate 16 Blood Pressure 110/85 Pulse Oximetry 100 08/24/18 00:02 08/24/18 01:01 08/24/18 02:06 Temperature Pulse Rate 62 73 56 L Respiratory Rate Blood Pressure Pulse Oximetry 08/24/18 02:57 08/24/18 04:00 08/24/18 04:01 Temperature 97.6 F Pulse Rate 61 58 L 64 Respiratory Rate 16 Blood Pressure 110/83 Pulse Oximetry 100 08/24/18 05:03 08/24/18 06:00 Temperature Pulse Rate 75 59 L Respiratory Rate Blood Pressure Pulse Oximetry Intake & Output 08/23/18 08/24/18 08/24/18 18:59 06:59 18:59 Intake Total 1000 / 1000 0 / 0 Output Total 900 / 900 Balance 1000 / 1000 -900 / -900 Weight 54.431 kg 44.3 kg Intake: IV 1000 / 1000 NS Inj 1,000 ML @ Wide Open IV. 1000 / 1000 SIG BOLUS ONE Rx#:[id number] Oral 0 / 0 Output: Urine 900 / 900 Other: # Voids 1 Weight On Admission 44.225 kg Narrative: GENERAL: Agitated. SKIN: Warm and dry. HEAD: Atraumatic. Normocephalic. EYES: Pupils equal and round. Scleral jaundice. No injection or drainage. ENT: No nasal bleeding or discharge. Mucous membranes pink and moist. NECK: Trachea midline. No JVD. CARDIOVASCULAR: Regular rate and rhythm. RESPIRATORY: No accessory muscle use. Clear to auscultation. Breath sounds equal bilaterally. GASTROINTESTINAL: Abdomen soft, non-tender, nondistended. + Bowel sounds MUSCULOSKELETAL: Extremities without clubbing, cyanosis, or edema. No obvious deformities. NEUROLOGICAL: Awake, alert, oriented x3. No obvious cranial nerve deficits. Motor grossly within normal limits. Five out of 5 muscle strength in the arms and legs. Results - Labs CBC & Chem 7: 08/24/18 02:38 08/24/18 02:38 Laboratory Results - last 24 hr 08/23/18 08/23/18 08/23/18 14:35 14:35 14:35 WBC 5.0 RBC 4.09 L Hgb 12.7 L Hct 37.5 L MCV 91.6 MCH 31.0 MCHC 33.9 RDW 13.8 Plt Count 114 L MPV 9.7 Prelim Diff (Auto) Neut % (Auto) 52.0 Lymph % (Auto) 32.5 Amelia % (Auto) 14.3 H Eos % (Auto) 0.7 Baso % (Auto) 0.5 Neut # (Auto) 2.6 Lymph # (Auto) 1.6 Amelia # (Auto) 0.7 Eos # (Auto) 0.0 Baso # (Auto) 0.0 WBC Differential . Diff Scan Differential Comment Auto diff final Platelet Estimate Platelet Morphology Sodium 141 Potassium 5.1 Chloride 106 Carbon Dioxide 25.8 Anion Gap 9 BUN 11 Creatinine 1.08 Estimated GFR Greater than 89 Random Glucose 83 Calcium 8.7 Magnesium 1.3 L Total Bilirubin 1.7 H AST 167 H ALT 85 H Alkaline Phosphatase 66 Ammonia Total Creatine Kinase 532 H CK-MB (CK-2) 9.6 H CK-MB (CK-2) % 1.8 Troponin I 0.11 H Total Protein 7.7 Albumin 3.6 Lipase 87 Digoxin Less than 0.1 L 08/23/18 08/23/18 08/24/18 21:10 21:10 02:38 WBC 3.8 L RBC 4.10 L Hgb 12.7 L Hct 36.8 L MCV 89.9 MCH 30.9 MCHC 34.4 RDW 13.7 Plt Count 97 L MPV 9.9 Prelim Diff (Auto) Slide review pending Neut % (Auto) 47.9 Lymph % (Auto) 38.8 Amelia % (Auto) 11.4 H Eos % (Auto) 1.2 Baso % (Auto) 0.7 Neut # (Auto) 1.8 Lymph # (Auto) 1.5 Amelia # (Auto) 0.4 Eos # (Auto) 0.0 Baso # (Auto) 0.0 WBC Differential . Diff Scan Auto diff confirmed Differential Comment . Platelet Estimate Low L Platelet Morphology Normal Sodium Potassium Chloride Carbon Dioxide Anion Gap BUN Creatinine Estimated GFR Random Glucose Calcium Magnesium Total Bilirubin AST ALT Alkaline Phosphatase Ammonia 30 Total Creatine Kinase CK-MB (CK-2) CK-MB (CK-2) % Troponin I 0.13 H Total Protein Albumin Lipase Digoxin 08/24/18 08/24/18 02:38 02:38 WBC RBC Hgb Hct MCV MCH MCHC RDW Plt Count MPV Prelim Diff (Auto) Neut % (Auto) Lymph % (Auto) Amelia % (Auto) Eos % (Auto) Baso % (Auto) Neut # (Auto) Lymph # (Auto) Amelia # (Auto) Eos # (Auto) Baso # (Auto) WBC Differential Diff Scan Differential Comment Platelet Estimate Platelet Morphology Sodium 140 Potassium 3.5 D Chloride 101 Carbon Dioxide 26.2 Anion Gap 13 BUN 10 Creatinine 0.92 Estimated GFR Greater than 89 Random Glucose 83 Calcium 8.6 Magnesium 1.3 L Total Bilirubin AST ALT Alkaline Phosphatase Ammonia Total Creatine Kinase CK-MB (CK-2) CK-MB (CK-2) % Troponin I 0.10 H Total Protein Albumin Lipase Digoxin - Imaging Impressions Abdomen/Pelvis CT 08/23/18 14:23 CONCLUSION: 1. Hepatomegaly. 2. Cardiomegaly. 3. Mild chronic compression deformity involving T12. 4. No acute intra-abdominal process. Head CT 08/23/18 14:23 CONCLUSION: 1. Diffuse atrophy which is unexpected in a patient of this age. 2. No acute infarct, acute hemorrhage, midline shift or extra-axial fluid collections. . Assessment and Plan - Assessment (1) Alcohol abuse Code(s): F10.10 - Alcohol abuse, uncomplicated Status: Acute (2) Non-compliance Code(s): Z91.19 - Patient's noncompliance with other medical treatment and regimen Status: Acute (3) Liver cirrhosis Code(s): K74.60 - Unspecified cirrhosis of liver Status: Acute (4) Elevated troponin Code(s): R74.8 - Abnormal levels of other serum enzymes Status: Acute (5) Generalized weakness Code(s): R53.1 - Weakness Status: Acute - Plan 43-year-old male with PMH significant for non-ischemic cardiomyopathy, MS, cirrhosis, DVT, PE, tobacco and alcohol abuse who presents to the ED after not feeling well today when he woke up. Nausea/vomiting ?gastroenteritis vs PUD -seems resolved. -CT of abdomen pelvis with noted hepatomegaly, cardiomegaly, chronic compression deformity involving T12, no other acute intra-abdominal process. -One episode of emesis this morning, none since then, tolerating oral intake. -Pepcid twice daily, antiemetics as needed Liver cirrhosis Alcohol abuse -T bili 1.7 with elevated AST and ALT -CT of abdomen pelvis with no acute findings -Thrombocytopenia platelets 114, likely secondary to cirrhosis, no evidence of bleeding. Add ammonia level to labs. -Continue supportive care for the moment -CIWA, alcohol cessation encouraged Elevated troponins -Patient with chronically elevated troponins in the past. -Seen and evaluated by Dr. Elise in February of this year with no interventions -Patient denies any chest pain or discomfort at the moment, EKG pending -Patient received Lovenox and aspirin in the emergency department, will hold off as patient currently not having any chest pain. -Continue to monitor on telemetry -Continue cardiac medications Nonischemic cardiomyopathy w/ AICD in place Echo 10/10/17 with EF<20% -Patient does not appear to be fluid overloaded, chronic shortness of breath unchanged -Monitor on telemetry -Resume beta-kash, Lasix, digoxin Generalized weakness Dizziness -Mild anemia noted on CBC H&H 12.7/37.5 -Status post IV fluids in the ED BP stable -CT of the head with noted diffuse atrophy unexpected for patient's age, no other acute abnormality. -Possibly related to mild dehydration -Consult PT for further evaluation and recommendations Hypomagnesemia -Replace orally, recheck labs in the a.m. -IV mg sulfate ordered but pt demands to leave AMA. History of PE/DVT -Continue patient's Xarelto, dose indication for PE/DVT recurrences 10 mg daily Back pain -Trial of Lidoderm patch, consult PT Tobacco abuse -Smoking cessation encouraged DVT prophylaxisXarelto Discharge Planning: The pt is deciding to leave AMA
--- NOTE | 2018-08-24 17:12 | ECG ---
Date Performed: 08/24/2018 Time Performed: 07:30:14 PTAGE: 43 years EKG: Sinus rhythm Possible left atrial abnormality Left axis deviation Incomplete LBBB Anterior infarct - age undeterm ined Possible left ventricular hypertrophy Lateral T wave changes Abnormal ECG PREVIOUS TRACING : 08/24/2018 00.08 Since the previous tracing, no significant change noted DOCTOR: Leatha Amezquita Interpretating Date/Time 08/24/2018 17:10:08
--- NOTE | 2018-08-24 17:32 | ECG ---
Date Performed: 08/24/2018 Time Performed: 00:08:24 PTAGE: 43 years EKG: Sinus rhythm Possible left atrial abnormality Left axis deviation Incomplete LBBB Possible anterior and inferior infarct - age undetermined Left ventricular hypertrophy Lateral T wave changes are probably due to ve ntricular hypertrophy Abnormal ECG PREVIOUS TRACING : 08/23/2018 18.00 Since the previous tracing, no significant change noted DOCTOR: Leatha Amezquita Interpretating Date/Time 08/24/2018 17:30:56
--- NOTE | 2018-08-24 18:01 | ECG ---
Date Performed: 08/23/2018 Time Performed: 18:00:59 PTAGE: 43 years EKG: Sinus rhythm WITH OCCASIONAL ECTOPIC PREMATURE COMPLEXES POSSIBLE LEFT ATRIAL ENLARGEMENT MARKED LEFT AXIS DEVIAT ION POSSIBLE RIGHT VENTRICULAR CONDUCTION DELAY ANTEROSEPTAL AND INFERIOR MYOCARDIAL INFARCTION MODER ATE T-WAVE ABNORMALITY ABNORMAL ECG PREVIOUS TRACING : 02/06/2018 18.53 Since the previous tracing, no significant change noted DOCTOR: Leatha Amezquita Interpretating Date/Time 08/24/2018 18:00:10
== END 2018-08-24 09:54 | disposition left against medical advice (07) | DRG 894 ==
LOC: NEDA 13:43 → NEPC 13:43 → HCIS 21:26
PROVIDERS: ADMIT Hospitalist; ATTEND Hospitalist
CPT/HCPCS: 70450; 74176; 80048; 80053; 80162; 82140; 82550; 82552; 83690; 83735; 84484; 85025; 93005; J1650; J2405; J3475; J7030

== ENCOUNTER 2018-08-31 20:39 | Inpatient (IN) ==
--- NOTE | 2018-08-31 21:15 | ED ---
HPI General Chief Complaint: Chest Pain Stated Complaint: chest pain/evac Time Seen by Provider: 08/31/18 20:54 Source: patient and EMS Mode of arrival: EMS Limitations: no limitations History of Present Illness HPI narrative: Patient is a 43-year-old male with history of nonischemic cardiomyopathy, ND, liver cirrhosis, DVT, PE, tobacco and alcohol dependence, presents to the emergency room via EMS for evaluation of chest pain. Patient reports that he was walking down the streets when all of a sudden he felt like he was being punched in the chest wall. Reports that he has no chest pain at this time. Reports that he was recently admitted to the hospital but wasn't sure why. Patient reports that he has an extensive cardiac history but doesn't know what medical problems he has. Reports that he has a AICD - reports that he isn't sure who put the AICD in and is not sure when it was placed. He does not have a lehr stripper and does not have a primary care doctor. Related Data Home Medications Medication Instructions Recorded Confirmed carvedilol 12.5 mg PO BID 08/23/18 08/23/18 digoxin 0.25 mg PO DAILY 08/23/18 08/23/18 furosemide [Lasix] 40 mg PO BID 08/23/18 08/23/18 isosorbide mononitrate 30 mg PO DAILY 08/23/18 08/23/18 mirtazapine 30 mg PO HS 08/23/18 08/23/18 potassium chloride 20 meq PO DAILY 08/23/18 08/23/18 quetiapine [Seroquel] 100 mg PO HS 08/23/18 08/23/18 ramipril 5 mg PO DAILY 08/23/18 08/23/18 rivaroxaban [Xarelto] 15 mg PO QPM 08/23/18 08/23/18 Allergies Allergy/AdvReac Type Severity Reaction Status Date / Time Fish Containing Products Allergy Severe itching Verified 08/23/18 14:03 iodine Allergy Severe itching Verified 08/23/18 14:03 potassium iodide Allergy Severe itching Verified 08/23/18 14:03 povidone-iodine Allergy Severe itching Verified 08/23/18 14:03 sodium iodide Allergy Severe itching Verified 08/23/18 14:03 Review of Systems ROS: all other systems reviewed are negative [facility] Medical History Medical History Cirrhosis of liver (Acute) DVT (deep venous thrombosis) (Acute) Gastric ulcer (Acute) Heart attack (Acute) History of placement of internal cardiac defibrillator (Acute) Non-ischemic cardiomyopathy (Acute) Pacemaker (Acute) Pulmonary emboli (Acute) Social History Social History Substance History: No History of Abuse Second Hand Smoke Exposure: No Smoking Status: Current every day smoker Tobacco Type: Cigarettes How Often Do You Have a Drink Containing Alcohol: 2 to 3 times a week Immunization History Tetanus Immunization: Never Vaccinated Exam Narrative Exam Narrative: GENERAL: Mild distress SKIN: Focused skin assessment warm/dry. HEAD: Atraumatic. Normocephalic. EYES: Pupils equal and round. No scleral icterus. No injection or drainage. ENT: No nasal bleeding or discharge. Mucous membranes pink and moist. NECK: Trachea midline. No JVD. CARDIOVASCULAR: Regular rate and rhythm. No murmur appreciated. RESPIRATORY: No accessory muscle use. Clear to auscultation. Breath sounds equal bilaterally. GASTROINTESTINAL: Abdomen soft, non-tender, nondistended. Hepatic and splenic margins not palpable. MUSCULOSKELETAL: No obvious deformities. No clubbing. No cyanosis. No edema. NEUROLOGICAL: Awake and alert. No obvious cranial nerve deficits. Motor grossly within normal limits. Normal speech. PSYCHIATRIC: Appropriate mood and affect; insight and judgment normal. Course Initial Documented Vital Signs Temperature 98.1 F 08/31/18 20:48 Pulse Rate 102 H 08/31/18 20:48 Respiratory Rate 18 08/31/18 20:48 Blood Pressure 110/76 08/31/18 20:48 Pulse Oximetry 100 08/31/18 20:48 Last Documented Vital Signs Temperature 98.1 F 08/31/18 20:48 Pulse Rate 97 H 08/31/18 20:56 Respiratory Rate 18 08/31/18 20:48 Blood Pressure 110/76 08/31/18 20:48 Pulse Oximetry 100 08/31/18 22:48 Medical Decision Making MDM Narrative Medical decision making narrative: During the course of the patients emergency department visit, the patients history, examination, and differential diagnosis were reviewed with the patient. The patient was placed on a youth nutritional monitor with oximetry and frequent blood pressure monitoring. The patient had an IV access obtained and blood work sent for analysis. The patient was initially provided with aspirin 162mg. Patient's EKG shows normal sinus rhythm at 80 bpm, QT/QTc 372/418, he does have st seg elevation with q waves- his ekg was compared to previous ekg from and ekg is similar Patient currently with no chest pain/sob. Patient is completely asymptomatic at this time. Patient's previous records were reviewed as he was recently admitted to the hospital in August 23, 2018. Patient is a poor historian at baseline The patients laboratory studies were reviewed and remarkable for: cbc: wnl bmp: wnl trop 0.08- lower than normal bnp 941 Radiology studies were reviewed and remarkable for no acute cardiopulmonary disease, mild cardiomegaly. Trop is 0.08 - patient is chest pain free , repeat ekg similar to initial ekg - no change case reviewed with Dr. Huerta who accepts pt to service Medical Screen Exam Complete: Yes Emergency Medical Condition: Yes Differential Diagnosis Differential Diagnosis: ACS, arrythmia, AICD firing, electrolyte abnormality Medical Records Medical records reviewed: Yes I reviewed the patient's medical records. Lab Data Result diagrams: 08/31/18 23:15 08/31/18 23:15 Lab Results 08/31/18 08/31/18 08/31/18 Range/Units 21:05 21:05 21:05 WBC (4.0-11.0) th/mm3 RBC (4.50-5.90) mil/mm3 Hgb (13.0-17.0) gm/dL Hct (39.0-51.0) % MCV (80.0-100.0) fL MCH (27.0-34.0) pg MCHC (32.0-36.0) % RDW (11.6-17.2) % Plt Count (150-450) th/mm3 MPV (7.0-11.0) fL Neut % (Auto) (16.0-70.0) % Lymph % (Auto) (9.0-44.0) % [place] % (Auto) (0.0-8.0) % Eos % (Auto) (0.0-4.0) % Baso % (Auto) (0.0-2.0) % Neut # (Auto) (1.8-7.7) th/mm3 Lymph # (Auto) (1.0-4.8) th/mm3 [place] # (Auto) (0.0-0.9) th/mm3 Eos # (Auto) (0.0-0.4) th/mm3 Baso # (Auto) (0.0-0.2) th/mm3 WBC Differential Differential Comment PT 10.5 (9.8-11.6) sec INR 1.0 Ratio APTT 23.0 L (23.4-31.7) sec Sodium (136-145) meq/L Potassium (3.5-5.1) meq/L Chloride (98-107) meq/L Carbon Dioxide (21.0-32.0) meq/L Anion Gap (5-15) meq/L BUN (7-18) mg/dL Creatinine (0.60-1.30) mg/dL Estimated GFR (>89) mL/min Random Glucose (74-106) mg/dL Calcium (8.5-10.1) mg/dL Total Bilirubin (0.2-1.0) mg/dL AST (15-37) U/L ALT (12-78) U/L Alkaline Phosphatase (45-117) U/L Total Creatine Kinase Cancelled Troponin I (0.02-0.05) ng/mL B-Natriuretic Peptide 941 H (0-100) pg/mL Total Protein (6.4-8.2) g/dL Albumin (3.4-5.0) g/dL Lipase (73-393) U/L Serum Alcohol (0-5) mg/dL 08/31/18 08/31/18 Range/Units 23:15 23:15 WBC 4.6 (4.0-11.0) th/mm3 RBC 3.90 L (4.50-5.90) mil/mm3 Hgb 12.3 L (13.0-17.0) gm/dL Hct 35.5 L (39.0-51.0) % MCV 91.0 (80.0-100.0) fL MCH 31.6 (27.0-34.0) pg MCHC 34.7 (32.0-36.0) % RDW 14.1 (11.6-17.2) % Plt Count 169 D (150-450) th/mm3 MPV 9.2 (7.0-11.0) fL Neut % (Auto) 38.0 (16.0-70.0) % Lymph % (Auto) 50.4 H (9.0-44.0) % [place] % (Auto) 10.1 H (0.0-8.0) % Eos % (Auto) 0.9 (0.0-4.0) % Baso % (Auto) 0.6 (0.0-2.0) % Neut # (Auto) 1.7 L (1.8-7.7) th/mm3 Lymph # (Auto) 2.3 (1.0-4.8) th/mm3 [place] # (Auto) 0.5 (0.0-0.9) th/mm3 Eos # (Auto) 0.0 (0.0-0.4) th/mm3 Baso # (Auto) 0.0 (0.0-0.2) th/mm3 WBC Differential . Differential Comment Auto diff final PT (9.8-11.6) sec INR Ratio APTT (23.4-31.7) sec Sodium 138 (136-145) meq/L Potassium 3.7 (3.5-5.1) meq/L Chloride 108 H (98-107) meq/L Carbon Dioxide 17.8 L (21.0-32.0) meq/L Anion Gap 12 (5-15) meq/L BUN 12 (7-18) mg/dL Creatinine 0.90 (0.60-1.30) mg/dL Estimated GFR Greater than 89 (>89) mL/min Random Glucose 76 (74-106) mg/dL Calcium 8.3 L (8.5-10.1) mg/dL Total Bilirubin 0.7 (0.2-1.0) mg/dL AST 124 H (15-37) U/L ALT 75 (12-78) U/L Alkaline Phosphatase 59 (45-117) U/L Total Creatine Kinase Troponin I 0.10 H (0.02-0.05) ng/mL B-Natriuretic Peptide (0-100) pg/mL Total Protein 7.5 (6.4-8.2) g/dL Albumin 3.4 (3.4-5.0) g/dL Lipase 109 (73-393) U/L Serum Alcohol 68 H (0-5) mg/dL Imaging Data Radiologist's impression: Chest X-Ray 08/31/18 21:00 CONCLUSION: No acute cardiopulmonary disease. Mild cardiomegaly. ECG Data EKG Prior to Arrival: Yes Attestation: I personally reviewed and interpreted this ECG as follows: Prior ECG tracings: available for review Interpretation: EKG at 2051: nsr AT 88bpm, qt/qtc: 372/418, q wave with st seg elevation, ekg similar to ekg from 08/24/18 Discharge Plan Discharge Disposition Patient Disposition: 30 Still Patient Discharge Condition Condition: Fair Discharge Details Diagnosis: Non-ST elevation ND (NSTEMI) Physicians Team ED Provider: Tiffany Hull Primary Care Provider: Primary Care Michelle Oliva Rxs /Orders / Referrals /Forms Prescriptions: No Action furosemide [Lasix] 40 mg Tablet 40 mg PO BID RF: 0 carvedilol 12.5 mg Tablet 12.5 mg PO BID RF: 0 isosorbide mononitrate 30 mg Tablet Extended Release 24 Hr 30 mg PO DAILY RF: 0 digoxin 250 mcg Tablet 0.25 mg PO DAILY RF: 0 ramipril 5 mg Capsule 5 mg PO DAILY RF: 0 rivaroxaban [Xarelto] 15 mg Tablet 15 mg PO QPM RF: 0 potassium chloride 20 mEq Tablet Extended Release 20 meq PO DAILY RF: 0 quetiapine [Seroquel] 100 mg Tablet 100 mg PO HS RF: 0 mirtazapine 30 mg Tablet 30 mg PO HS RF: 0 Discharge Instructions Patient Printed Instructions: Chest Pain (ED) Status ED Status: Pending Admission
[2018-08-31 21:27] LABS: Prothrombin Time 10.5 sec (9.8-11.6)
--- NOTE | 2018-08-31 21:28 | XR ---
EXAM DATE: 08/31/2018 9:23 PM EST AGE/SEX: 43 years / Male INDICATIONS: Chest pain. CLINICAL DATA: This is the patient's initial encounter. Patient reports that signs and symptoms have been present for 1 day and indicates a pain score of Nonresponsive. MEDICAL/SURGICAL HISTORY: . Myocardial infarction CABG. COMPARISON: . FINDINGS: A single AP view of the chest demonstrates the lungs to be symmetrically aerated without evidence of mass, infiltrate or effusion. Mild cardiomegaly. Left-sided defibrillator with single intact lead The cardiomediastinal contours are unremarkable. Osseous structures are intact. CONCLUSION: No acute cardiopulmonary disease. Mild cardiomegaly. Electronically signed by: Willy Payne MD 08/31/2018 9:26 PM EST
[2018-08-31 23:28] LABS: Baso % (Auto) 0.6 % (0.0-2.0); Eos % (Auto) 0.9 % (0.0-4.0); Hematocrit 35.5 % (39.0-51.0); Hemoglobin 12.3 gm/dL (13.0-17.0); Lymph # (Auto) 2.3 th/mm3 (1.0-4.8); Lymph % (Auto) 50.4 % (9.0-44.0); Mean Corpuscular HGB Conc 34.7 % (32.0-36.0); Mean Corpuscular Hemoglobin 31.6 pg (27.0-34.0); Mean Platelet Volume 9.2 fL (7.0-11.0); Mono # (Auto) 0.5 th/mm3 (0.0-0.9); Mono % (Auto) 10.1 % (0.0-8.0); Neut # (Auto) 1.7 th/mm3 (1.8-7.7); Platelet Count 169 th/mm3 (150-450); Red Cell Distribution Width 14.1 % (11.6-17.2); White Blood Count 4.6 th/mm3 (4.0-11.0)
[2018-08-31 23:38] LABS: Alanine Aminotransferase 75 U/L (12-78); Albumin 3.4 g/dL (3.4-5.0); Anion Gap 12 meq/L (5-15); Aspartate Aminotransferase 124 U/L (15-37); Blood Urea Nitrogen 12 mg/dL (7-18); Calcium 8.3 mg/dL (8.5-10.1); Carbon Dioxide 17.8 meq/L (21.0-32.0); Chloride 108 meq/L (98-107); Glomerular Filtration Rate Greater Than 89 mL/min (>89); Glucose,Random 76 mg/dL (74-106); Lipase 109 U/L (73-393); Potassium 3.7 meq/L (3.5-5.1); Sodium 138 meq/L (136-145)
[2018-08-31 23:39] LABS: Alcohol 68 mg/dL (0-5)
[2018-08-31 23:49] LABS: Alkaline Phosphatase 59 U/L (45-117); Total Protein 7.5 g/dL (6.4-8.2)
[2018-09-01] MEDS ORDERED: Bisacodyl 10 MG Supp RECTAL PRN (00:27)
[2018-09-01] MEDS ORDERED: Acetaminophen 325 MG Tablet PO PRN (00:27)
--- NOTE | 2018-09-01 00:43 | P.HPIM ---
History of Present Illness Service: [facility] . Primary Care Physician: No Primary Care Physician Chief Complaint: Chest pain History of Present Illness: Mr. Valdivia is a 43-year-old male with a history of nonischemic cardiomyopathy with history of AICD, myocardial infarction, cirrhosis of the liver, DVT, PE, gastric ulcer, and pacemaker who presented to the emergency room on 08/31/2018 complaining of chest pain. Troponin I was slightly elevated at 0.10 and as there was some concern about whether or not the AICD had fired, the patient is admitted for observation, ACS rule out, and AICD interrogation. The patient is seen in the CDU. He tells me he was walking down the sidewalk today when he felt a sudden sharp "kick to my chest". He states it lasted only for seconds and did not recur. He reports some dizziness and shortness of breath with the episode and said it startled and "scared me!" He denies diaphoresis, palpitations, nausea, or vomiting. . 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 - Medical History Medical History: Medical History (Last Reviewed 09/01/18 @ 00:37 by MADDY Cheng) Cirrhosis of liver DVT (deep venous thrombosis) Gastric ulcer Heart attack Non-ischemic cardiomyopathy Pulmonary emboli - Surgical History Surgical History: Surgical History (Last Updated 09/01/18 @ 00:40 by MADDY Cheng) History of placement of internal cardiac defibrillator Pacemaker - Family History Family History: Family History (Last Updated 09/01/18 @ 00:42 by MADDY Cheng) Mother Coronary artery disease Grandparent Coronary artery disease Father Family history of throat cancer - Social History I have reviewed the patient's Social History: Yes - Tobacco History Second Hand Smoke Exposure: No Tobacco Use In Past 30 Days: Yes Smoking Status: Current every day smoker Tobacco Type: Cigarettes - Alcohol History How Often Do You Have a Drink Containing Alcohol: 2 to 3 times a week - Substance Use History Substance History: No History of Abuse - Immunization History Tetanus Immunization: Never Vaccinated Medications and Allergies Active Medications: Active Medications Acetaminophen (Tylenol) 650 mg PO Q4H PRN PRN Reason: Temp > 100.4 Bisacodyl (Dulcolax Supp) 10 mg RECTAL DAILY PRN PRN Reason: SEVERE CONSITIPATION Ondansetron HCl (Zofran Inj) 4 mg IV.PUSH Q6H PRN PRN Reason: NAUSEA OR VOMITING Sennosides (Senokot) 17.2 mg PO Q12H PRN PRN Reason: Moderate Constipation Sodium Chloride (Ns Flush) 2 ml IV.FLUSH UNSCH PRN PRN Reason: FLUSH AFTER USING IV ACCESS Allergies Allergy/AdvReac Type Severity Reaction Status Date / Time Fish Containing Products Allergy Severe itching Verified 08/23/18 14:03 iodine Allergy Severe itching Verified 08/23/18 14:03 potassium iodide Allergy Severe itching Verified 08/23/18 14:03 povidone-iodine Allergy Severe itching Verified 08/23/18 14:03 sodium iodide Allergy Severe itching Verified 08/23/18 14:03 Home Medications Medication Instructions Recorded Confirmed Type carvedilol 12.5 mg PO BID 08/23/18 09/01/18 History digoxin 0.25 mg PO DAILY 08/23/18 09/01/18 History furosemide [Lasix] 40 mg PO BID 08/23/18 09/01/18 History isosorbide mononitrate 30 mg PO DAILY 08/23/18 09/01/18 History mirtazapine 30 mg PO HS 08/23/18 09/01/18 History potassium chloride 20 meq PO DAILY 08/23/18 09/01/18 History quetiapine [Seroquel] 100 mg PO HS 08/23/18 09/01/18 History ramipril 5 mg PO DAILY 08/23/18 09/01/18 History rivaroxaban [Xarelto] 15 mg PO QPM 08/23/18 09/01/18 History Exam Vital signs: Vital Signs 08/31/18 20:48 08/31/18 20:56 08/31/18 22:48 Temperature 98.1 F Pulse Rate 102 H 97 H Respiratory Rate 18 Blood Pressure 110/76 Pulse Oximetry 100 100 Intake & Output 08/31/18 08/31/18 09/01/18 06:59 18:59 06:59 Weight 54.431 kg Narrative: GENERAL: This is a cachectic male patient, in no apparent distress. SKIN: No rashes, ecchymoses or lesions. Cool and dry. HEAD: Atraumatic. Normocephalic. EYES: No scleral icterus. No injection or drainage. ENT: Nose without bleeding, purulent drainage. NECK: Trachea midline. No JVD. CARDIOVASCULAR: Regular rate and rhythm without murmurs, gallops, or rubs. RESPIRATORY: Clear to auscultation. Breath sounds equal bilaterally. No wheezes , rales, or rhonchi. GASTROINTESTINAL: Abdomen soft, non-tender, nondistended. No guarding. MUSCULOSKELETAL: Extremities without clubbing, cyanosis, or edema. No calf tenderness. NEUROLOGICAL: Awake and alert. Motor and sensory grossly within normal limits. Normal speech. Poor personal history recall. . Results - Labs CBC & Chem 7: 08/31/18 23:15 08/31/18 23:15 Labs: Short CBC 08/31/18 Range/Units 23:15 WBC 4.6 (4.0-11.0) th/mm3 Hgb 12.3 L (13.0-17.0) gm/dL Hct 35.5 L (39.0-51.0) % Plt Count 169 D (150-450) th/mm3 BMP 08/31/18 23:15 Sodium 138 Potassium 3.7 Chloride 108 H Carbon Dioxide 17.8 L BUN 12 Creatinine 0.90 Calcium 8.3 L Cardiac Enzymes 08/31/18 08/31/18 Range/Units 21:05 23:15 Total Creatine Kinase Cancelled Troponin I 0.10 H (0.02-0.05) ng/mL Liver Function 08/31/18 Range/Units 23:15 Total Bilirubin 0.7 (0.2-1.0) mg/dL AST 124 H (15-37) U/L ALT 75 (12-78) U/L Alkaline Phosphatase 59 (45-117) U/L Albumin 3.4 (3.4-5.0) g/dL - Imaging Impressions Chest X-Ray 08/31/18 21:00 CONCLUSION: No acute cardiopulmonary disease. Mild cardiomegaly. Caprini VTE Risk Assessment Caprini VTE Risk Assessment: Moderate/High Risk (score >= 2) Caprini Risk Assessment Model: Point Value = 1 Point Value = 2 Point Value = 3 Point Value = 5 Age 41-60 Minor surgery BMI > 25 kg/m2 Swollen legs Varicose veins or History of unexplained or recurrent spontaneous Oral contraceptives or hormone replacement Sepsis (< 1 month) Serious lung disease, including pneumonia (< 1 month) Abnormal pulmonary function Acute myocardial infarction Congestive heart failure (< 1 month) History of inflammatory bowel disease Medical patient at bed rest Age 61-74 Arthroscopic surgery Major open surgery (> 45 min) Laparoscopic surgery (> 45 min) Malignancy Confined to bed (> 72 hours) Immobilizing plaster cast Central venous access Age >= 75 History of VTE Family history of VTE Factor V Leiden Prothrombin [id number] Lupus anticoagulant Anticardiolipin antibodies Elevated serum homocysteine Heparin-induced thrombocytopenia Other congenital or acquired thrombophilia Stroke (< 1 month) Elective arthroplasty Hip, pelvis, or leg fracture Acute spinal cord injury (< 1 month) Prophylaxis Regimen: Total Risk Factor Score Risk Level Prophylaxis Regimen 0-1 Low Early ambulation 2 Moderate Order ONE of the following: *Sequential Compression Device (SCD) *Heparin 5000 units SQ BID 3-4 Higher Order ONE of the following medications: *Heparin 5000 units SQ TID *Enoxaparin/Lovenox 40 mg SQ daily (WT < 150 kg, CrCl > 30 mL/min) *Enoxaparin/Lovenox 30 mg SQ daily (WT < 150 kg, CrCl > 10-29 mL/min) *Enoxaparin/Lovenox 30 mg SQ BID (WT < 150 kg, CrCl > 30 mL/min) AND/OR *Sequential Compression Device (SCD) 5 or more Highest Order ONE of the following medications: *Heparin 5000 units SQ TID (Preferred with Epidurals) *Enoxaparin/Lovenox 40 mg SQ daily (WT < 150 kg, CrCl > 30 mL/min) *Enoxaparin/Lovenox 30 mg SQ daily (WT < 150 kg, CrCl > 10-29 mL/min) *Enoxaparin/Lovenox 30 mg SQ BID (WT < 150 kg, CrCl > 30 mL/min) AND *Sequential Compression Device (SCD) Assessment and Plan - Plan Mr. Valdivia is a 43-year-old male with a history of nonischemic cardiomyopathy with history of AICD, myocardial infarction, cirrhosis of the liver, DVT, PE, gastric ulcer, and pacemaker who presented to the emergency room on 08/31/2018 complaining of chest pain. Troponin I was slightly elevated at 0.10 and as there was some concern about whether or not the AICD had fired, the patient is admitted for observation, ACS rule out, and AICD interrogation. Chest pain - suspect secondary to AICD firing but still need to r/o NSTEMI -AICD will be interrogated in the morning -Continuous cardiac telemetry to monitor for cardiac arrhythmia -CXR personally reviewed with mild cardiomegaly and no acute findings. -N.p.o. except medications -Serial cardiac enzymes and EKGs to rule out ACS - EKGs personally reviewed and no changes were noted from prior EKGs We will resume home medications for other chronic illnesses DVT prophylaxis -Continue home Xarelto Discussed Condition With: Dr Huerta and patient .
[2018-09-01] MEDS ORDERED: Mirtazapine 15 MG Tablet PO SCH (00:45)
[2018-09-01] MEDS ORDERED: QUEtiapine 100 MG Tablet PO SCH (00:45)
[2018-09-01 01:17] LABS: Creatine Kinase 217 U/L (39-308)
[2018-09-01 01:33] LABS: Creatine Kinase MB 4.7 ng/mL (0.5-3.6)
[2018-09-01] MEDS ORDERED: LORazepam 1 MG Tablet PO PRN (03:02)
[2018-09-01] MEDS ORDERED: Haloperidol Inj 5 MG/ML Ampul IV.PUSH PRN (03:02)
[2018-09-01 04:12] LABS: Creatine Kinase 186 U/L (39-308); Troponin I 0.08 ng/mL (0.02-0.05)
[2018-09-01 04:24] LABS: Creatine Kinase MB 4.2 ng/mL (0.5-3.6)
[2018-09-01] MEDS ORDERED: Multivitamin/Minerals Therapeutic Tablet PO SCH (09:00)
[2018-09-01] MEDS ORDERED: Furosemide 40 MG Tablet PO SCH (09:00)
[2018-09-01] MEDS ORDERED: Isosorbide Mononitrate 30 MG ER 24HR Tablet (Imdur) PO SCH (09:00)
[2018-09-01] MEDS ORDERED: Digoxin 250 MCG Tablet PO SCH (09:00)
[2018-09-01] MEDS ORDERED: Ramipril 5 MG Capsule PO SCH (09:00)
[2018-09-01] MEDS ORDERED: Carvedilol 12.5 MG Tablet PO SCH (09:00)
[2018-09-01] MEDS ORDERED: Folic Acid 1 MG Tablet PO SCH (09:00)
[2018-09-01] MEDS ORDERED: Famotidine 20 MG Tablet PO SCH (09:00)
[2018-09-01] MEDS ORDERED: Metoprolol Inj 5 MG/5 ML Vial IV.PUSH PRN (09:17)
[2018-09-01] MEDS ORDERED: dilTIAZem Inj 125 MG in Sodium Chlor 0.9% Inj 100 ML IV.CONT PRN (09:18)
[2018-09-01 09:28] VITALS: TEMP 98
[2018-09-01 10:43] LABS: Baso % (Auto) 0.7 % (0.0-2.0); Eos % (Auto) 1.1 % (0.0-4.0); Hematocrit 38.3 % (39.0-51.0); Hemoglobin 12.7 gm/dL (13.0-17.0); Lymph # (Auto) 2.3 th/mm3 (1.0-4.8); Lymph % (Auto) 58.1 % (9.0-44.0); Mean Corpuscular HGB Conc 33.2 % (32.0-36.0); Mean Corpuscular Hemoglobin 31.2 pg (27.0-34.0); Mean Corpuscular Volume 93.9 fL (80.0-100.0); Mean Platelet Volume 9.9 fL (7.0-11.0); Mono # (Auto) 0.5 th/mm3 (0.0-0.9); Mono % (Auto) 13.4 % (0.0-8.0); Neut # (Auto) 1.1 th/mm3 (1.8-7.7); Neut % (Auto) 26.7 % (16.0-70.0); Platelet Count 170 th/mm3 (150-450); Red Blood Count 4.08 mil/mm3 (4.50-5.90); Red Cell Distribution Width 13.9 % (11.6-17.2)
--- NOTE | 2018-09-01 11:15 | P.PNADD ---
Addendum to Inpatient Note Additional information: Patient seen and examined. Patient is currently doing well. He denies any chest pain at all. He came in because his AICD fired once last night. Patient was found to be in A. fib with RVR. I gave him 1 dose of IV metoprolol 5 mg which which appears to be effective to control his heart rate. Cardiology consult pending. Patient underwent AICD placement in October 2017. He has a [employer] AICD. Will request a device interrogation from [employer].
[2018-09-01 11:20] LABS: Alanine Aminotransferase 69 U/L (12-78); Albumin 3.3 g/dL (3.4-5.0); Anion Gap 10 meq/L (5-15); Aspartate Aminotransferase 103 U/L (15-37); Blood Urea Nitrogen 10 mg/dL (7-18); Calcium 8.5 mg/dL (8.5-10.1); Carbon Dioxide 20.2 meq/L (21.0-32.0); Chloride 109 meq/L (98-107); Glomerular Filtration Rate Greater Than 89 mL/min (>89); Glucose,Random 71 mg/dL (74-106); Potassium 4.2 meq/L (3.5-5.1); Sodium 139 meq/L (136-145)
[2018-09-01 11:23] LABS: Alkaline Phosphatase 56 U/L (45-117); Creatine Kinase 188 U/L (39-308); Total Protein 7.1 g/dL (6.4-8.2); Troponin I 0.07 ng/mL (0.02-0.05)
--- NOTE | 2018-09-01 14:54 | MB ---
cc: Víctor John MD DATE: 09/01/2018 REASON FOR CONSULTATION: Atrial fibrillation, history of severe nonischemic cardiomyopathy. HISTORY OF PRESENT ILLNESS: The patient is a difficult historian. He wants to sign out from the hospital against medical advice. He is a 43-year-old male with a history of hypertension, severe nonischemic cardiomyopathy, liver cirrhosis, deep venous thrombosis, AICD implant, who apparently came to the hospital due to an AICD shock. He was found to be in atrial fibrillation with a rapid ventricular response. He denies any other chest discomforts. He also denies change in chronic mild to moderate dyspnea on exertion. He is unsure of his home medications. He also denies fevers, paroxysmal nocturnal dyspnea, pedal edema, syncope, near syncope, palpitations. PAST MEDICAL HISTORY: 1. Hypertension. 2. Severe nonischemic cardiomyopathy, initially diagnosed approximately 2014, at which time his ejection fraction was 20-25%. Most recently on an echo 10/10/2017, his ejection fraction was felt to be less than 20%. He had normal coronary arteries on cardiac catheterization 05/07/2015, as well as a normal coronary CT angiogram 08/13/2017. 3. Alcoholic liver cirrhosis. 4. Left common femoral/popliteal peroneal, deep venous thrombosis diagnosed 12/23/2014. 5. [employer]ik single chamber AICD implant 10/14/2017. CARDIAC MEDICATIONS AT HOME: 1. Carvedilol 12.5 mg b.i.d. 2. Digoxin 0.25 mg daily. 3. Furosemide 40 mg b.i.d. 4. Imdur 30 mg daily. 5. Potassium chloride 20 mEq daily. 6. Ramipril 5 mg daily. 7. Xarelto 15 mg at bedtime. ALLERGIES: FISH, IODINE. FAMILY HISTORY: Noncontributory. SOCIAL HISTORY: The patient smokes about a pack of cigarettes per day. He also admits to drinking alcohol at least 2-3 times a week, sometimes heavily. He denies any recent cocaine abuse, although admits to using cocaine in the past. REVIEW OF SYSTEMS: As in history of present illness, otherwise negative or noncontributory. He also currently denies headache, abdominal pain, melena, dyspepsia, bright red blood per rectum. PHYSICAL EXAMINATION: VITAL SIGNS: His blood pressure 97/69 with a pulse of 82, respirations 18. GENERAL: He is a well-developed, thin, male in no acute distress. HEENT: Jugular venous pressure is normal. Carotid pulses are 2+ bilaterally and without bruits. CHEST: Reveals diminished breath sounds diffusely. CARDIAC: He has a tachycardic irregular rhythm without S3 or S4. No definite murmurs audible. ABDOMEN: He has a soft, nontender abdomen. Bowel sounds are present. There is no definite hepatosplenomegaly. EXTREMITIES: Reveals no clubbing, cyanosis or edema. DIAGNOSTIC DATA: Chest x-ray shows no acute disease. LABORATORY DATA: EKG from today at 2:59 a.m. shows atrial fibrillation, nonspecific intraventricular conduction delay, nonspecific ST and T-wave abnormalities. Laboratory data includes potassium 4.2, BUN 10, creatinine 0.90, AST 103, ALT 69. Troponin 0.10. Brain natriuretic peptide level 941. WBC 4.0, hemoglobin 12.7, platelets 170. INR 1.0. IMPRESSION: Paroxysmal atrial fibrillation in this 43-year-old male with a history of medical noncompliance, hypertension, severe nonischemic cardiomyopathy with ejection fraction of less than 20%, alcoholic liver cirrhosis, deep venous thrombosis, AICD implant. At this time, he remains in atrial fibrillation with high normal to mildly increased heart rates. He does remain asymptomatic. Reportedly, he did receive an AICD shock due to the atrial fibrillation. The patient's thromboembolic risk is high. Unfortunately, his medical compliance is very suspect. He does not know his home medications and cannot recall the last time he took them. RECOMMENDATIONS: 1. At this time, the patient wishes to sign out of the hospital against medical advice. 2. I have stressed to him the importance of taking his home medications; could consider increasing his carvedilol dosing. MD CALI Bass/carolee , 02:24 PM , 02:35 PM ROSIE
--- NOTE | 2018-09-01 16:04 | ECG ---
Date Performed: 08/31/2018 Time Performed: 20:52:29 PTAGE: 43 years EKG: Sinus rhythm RIGHT ATRIAL ENLARGEMENT LEFT ATRIAL ENLARGEMENT POSSIBLE RIGHT VENTRICULAR CONDUCTION DELAY LEFT AN TERIOR FASCICULAR BLOCK ANTEROSEPTAL MYOCARDIAL INFARCTION PREVIOUS TRACING :08/24/2018 @07.30 Since the previous tracing, no significant change not ed DOCTOR: Willow Harrison Interpretating Date/Time 09/01/2018 16:01:49
--- NOTE | 2018-09-01 16:05 | ECG ---
Date Performed: 08/31/2018 Time Performed: 22:48:34 PTAGE: 43 years EKG: Sinus rhythm POSSIBLE RIGHT ATRIAL ENLARGEMENT LEFT ATRIAL ENLARGEMENT POSSIBLE RIGHT VENTRICULAR CONDUCTION FABIOLA Y LEFT ANTERIOR FASCICULAR BLOCK PREVIOUS TRACING : 08/31/2018 20.52 Since the previous tracing, no significant change not ed DOCTOR: Willow Harrison Interpretating Date/Time 09/01/2018 16:02:35
--- NOTE | 2018-09-01 16:06 | ECG ---
Date Performed: 09/01/2018 Time Performed: 02:59:49 PTAGE: 43 years EKG: ATRIAL FIBRILLATION WITH RAPID VENTRICULAR RESPONSE POSSIBLE RIGHT VENTRICULAR CONDUCTION D ELAY LEFT ANTERIOR FASCICULAR BLOCK PREVIOUS TRACING : 08/31/2018 22.48 Compared to previous tracing, there is now new onset atrial fibrillation DOCTOR: Willow Harrison Interpretating Date/Time 09/01/2018 16:03:15
--- NOTE | 2018-09-01 16:07 | ECG ---
Date Performed: 09/01/2018 Time Performed: 10:04:31 PTAGE: 43 years EKG: ATRIAL FIBRILLATION LEFT ANTERIOR FASCICULAR BLOCK PREVIOUS TRACING : 09/01/2018 10.04 Compared to previous tracing, heart rate has slowed DOCTOR: Willow Harrison Interpretating Date/Time 09/01/2018 16:03:39
[2018-09-01 17:59] VITALS: BP 116/58; PULSE 96; RESP 16; O2SAT 99
[2018-09-01] MEDS ORDERED: Rivaroxaban 15 MG Tablet PO SCH (18:00)
== END 2018-09-01 18:00 | disposition left against medical advice (07) ==
LOC: NEDA 20:39 → NEPD 20:39 → NEDH 09-01 01:05 → UNDODISIN 09-01 18:00 → NEDH 09-01 18:00 → UNDODISIN 09-01 18:01
PROVIDERS: ADMIT Hospitalist; ATTEND Hospitalist

== ENCOUNTER 2018-09-29 22:03 | Inpatient (IN) ==
[2018-09-29] MEDS ORDERED: Dextrose 50% in Water 50 ML Vial IV.PUSH PRN (22:12)
--- NOTE | 2018-09-29 22:17 | ED ---
HPI General Chief complaint: Medical Clearance Stated complaint: Diabetic Time Seen by Provider: 09/29/18 22:10 Source: patient Mode of arrival: EMS Limitations: altered mental status History of Present Illness HPI narrative: The patient is a 43 year old male who presents to the [facility] emergency department with a history of walking around in the street acting abnormally. Fire rescue arrived to evaluate the patient and the patient' s blood sugar was noted to be 21. The patient had a GCS of 8 at that time. IV access was obtained and the patient was given 25 g of dextrose. Prior to arrival by ambulance services the patient's blood sugar had improved to 65. The patient reports that he has been drinking alcohol today. He reports that he had 2 beers. The patient has garbled and slurred speech noted. The patient at this time is awake, alert, able to state his name, current location, and the fact that this is . The patient did at one point explained to ambulance services that he was concerned that his defibrillator fired. The patient has a left-sided defibrillator and pacemaker in place in the left side of his chest. The patient otherwise has no acute complaints at this time. The patient is repeatedly asking for something to drink. On review of systems otherwise, the patient denies having any known recent fevers, cough, congestion , neck pain, shortness of breath, abdominal pain, vomiting, diarrhea, urinary symptoms, or sided weakness, numbness or tingling to his extremities, facial droop, or difficulty with word finding ability. Related Data Home Medications Medication Instructions Recorded Confirmed carvedilol 12.5 mg PO BID 08/23/18 09/01/18 digoxin 0.25 mg PO DAILY 08/23/18 09/01/18 furosemide [Lasix] 40 mg PO BID 08/23/18 09/01/18 isosorbide mononitrate 30 mg PO DAILY 08/23/18 09/01/18 mirtazapine 30 mg PO HS 08/23/18 09/01/18 potassium chloride 20 meq PO DAILY 08/23/18 09/01/18 quetiapine [Seroquel] 100 mg PO HS 08/23/18 09/01/18 ramipril 5 mg PO DAILY 08/23/18 09/01/18 rivaroxaban [Xarelto] 15 mg PO QPM 08/23/18 09/01/18 Allergies Allergy/AdvReac Type Severity Reaction Status Date / Time Fish Containing Products Allergy Severe itching Verified 09/29/18 22:09 iodine Allergy Severe itching Verified 09/29/18 22:09 potassium iodide Allergy Severe itching Verified 09/29/18 22:09 povidone-iodine Allergy Severe itching Verified 09/29/18 22:09 sodium iodide Allergy Severe itching Verified 09/29/18 22:09 Review of Systems ROS Unobtainable ROS Unobtainable: unobtainable due to mental status PMFSH History History Provided By: Patient and Medical Record Medical History Medical History Cirrhosis of liver (Acute) DVT (deep venous thrombosis) (Acute) Gastric ulcer (Acute) Heart attack (Acute) Non-ischemic cardiomyopathy (Acute) Pulmonary emboli (Acute) Surgical History Surgical History History of placement of internal cardiac defibrillator (Acute) Pacemaker (Acute) Family History Family History Mother Coronary artery disease Grandparent Coronary artery disease Father Family history of throat cancer Social History Social History Substance History: Active Abuse Second Hand Smoke Exposure: Yes Smoking Status: Never smoker Tobacco Type: Cigarettes How Often Do You Have a Drink Containing Alcohol: 4 or more times a week Exam Const General: cooperative, no acute distress, well developed and intoxicated appearing Nutritional Appearance: thin Orientation: alert, awake and oriented x3 HENMT Head: normocephalic and atraumatic Nose: no nasal discharge and no epistaxis Mouth: moist mucous membranes Throat: posterior oropharynx normal and uvula midline Eyes Sclera: normal sclerae Pupils: PERRL Neck Neck: no meningeal signs, trachea midline and no JVD Resp Effort & Inspection: no use of accessory muscles Auscultation: clear to auscultation bilaterally Cardio Rate: regular rate Rhythm: regular rhythm Heart Sounds: no murmurs GI Inspection: non-distended Palpation: soft, no hepatosplenomegaly, no guarding, not rigid and nontender Auscultation: normal bowel sounds Back/Spine/Pelvis Back: no CVA tenderness Skin General: dry skin (warm) Neuro General: alert, awake and oriented x3 Cranial Nerves: CN's II-XI intact bilaterally Speech: other (Slurred speech noted.) Motor: strength 5/5 throughout and no movement abnormalities noted Sensory Exam: no sensory deficits noted Extrem General: normal to inspection, no clubbing, no cyanosis and no edema Psych Mood: congruent mood Affect: normal affect Judgment: judgment good Course Initial Documented Vital Signs Temperature 97.9 F 09/29/18 22:04 Pulse Rate 72 09/29/18 22:04 Respiratory Rate 16 09/29/18 22:04 Blood Pressure 105/72 09/29/18 22:04 Pulse Oximetry 100 09/29/18 22:04 Last Documented Vital Signs Temperature 97.7 F 09/30/18 04:15 Pulse Rate 72 09/30/18 04:30 Respiratory Rate 14 09/30/18 04:30 Blood Pressure 95/64 L 09/30/18 04:30 Pulse Oximetry 99 09/30/18 04:30 Medical Decision Making MDM Narrative Medical decision making narrative: During the course of the patient's emergency department visit, the patient's history, examination, and differential diagnosis were reviewed with the patient. The patient was placed on a morgue librarian with oximetry and frequent blood pressure monitoring. The patient had IV access obtained and blood work sent for analysis. This hypoglycemic event and altered mentation. The patient was initially provided a snack and juice. While the patient was being observed and his blood sugar monitored, the patient was warmed with warm blankets and then went to CT scan for evaluation of his brain due to altered mentation. According to the nurse the patient did not go on a monitor and hooked back up to a monitor after arriving back from CT he was noted to be in A. fib with RVR. An EKG reveals A. fib with RVR heart rate of 151, QRS duration 125 ms, QTC 391 ms. The patient was then reevaluated by me. The patient was noted to have no acute complaints, however he was indeed in A. fib with RVR at a persistent rate in the 140s-160s. Patient will receive a Cardizem bolus of 15 mg IV followed by a Cardizem drip. The patient's diagnostic studies are remarkable for a normal white blood cell count of 4.7, hemoglobin 14.5, platelets 156 with 76.7 neutrophils, PT PTT within normal limits, chemistry is remarkable for a potassium of 5.2, chloride 110, CO2 12.2, glucose 172, calcium 7.8, total bilirubin 1.1, AST 155, cardiac enzymes are remarkable for a normal CPK, troponin I is elevated at 0.06, BNP is 504, lipase within normal limits. The patient's chest x-ray showed cardiomegaly , no other acute abnormality. CT scan of the brain redemonstrates moderate diffuse cerebral atrophy out of proportion for age, no acute intracranial abnormality or significant interval change. The patient's case including history, pertinent physical examination findings, and laboratory studies were discussed with Dr. Rondon, the resident. It was agreed that the patient would be admitted to the FP resident's service. The patient's results were discussed with the patient, including the plan of care. I explained that further testing and/ or monitoring is indicated based on the patient's history, examination, and/ or laboratory findings. Therefore, I recommended admission for additional evaluation. The patient expressed understanding and was agreeable with this plan. The patient was admitted to the hospital in guarded condition and sent to a bed under the care of the FP resident's service. Medical Screen Exam Complete: Yes Emergency Medical Condition: Yes Differential Diagnosis Differential Diagnosis: Hypoglycemia related to alcohol intoxication, versus poor p.o. intake, versus insulinoma Medical Records Medical records reviewed: Yes I reviewed the patient's medical records. Lab Data Lab results reviewed: Yes I reviewed the patient's lab results. Result diagrams: 09/29/18 22:45 09/29/18 22:45 Lab Results 09/29/18 09/29/18 09/29/18 Range/Units 22:09 22:45 22:45 WBC 4.7 (4.0-11.0) th/mm3 RBC 4.63 (4.50-5.90) mil/mm3 Hgb 14.5 (13.0-17.0) gm/dL Hct 44.2 (39.0-51.0) % MCV 95.5 (80.0-100.0) fL MCH 31.3 (27.0-34.0) pg MCHC 32.8 (32.0-36.0) % RDW 14.9 (11.6-17.2) % Plt Count 156 (150-450) th/mm3 MPV 9.9 (7.0-11.0) fL Neut % (Auto) 76.7 H (16.0-70.0) % Lymph % (Auto) 19.7 (9.0-44.0) % Kern % (Auto) 2.8 (0.0-8.0) % Eos % (Auto) 0.2 (0.0-4.0) % Baso % (Auto) 0.6 (0.0-2.0) % Neut # (Auto) 3.6 (1.8-7.7) th/mm3 Lymph # (Auto) 0.9 L (1.0-4.8) th/mm3 Kern # (Auto) 0.1 (0.0-0.9) th/mm3 Eos # (Auto) 0.0 (0.0-0.4) th/mm3 Baso # (Auto) 0.0 (0.0-0.2) th/mm3 WBC Differential . Differential Comment Auto diff final PT (9.8-11.6) sec INR Ratio APTT (23.4-31.7) sec Sodium 137 (136-145) meq/L Potassium 5.2 H (3.5-5.1) meq/L Chloride 110 H (98-107) meq/L Carbon Dioxide 12.2 L (21.0-32.0) meq/L Anion Gap 15 (5-15) meq/L BUN 12 (7-18) mg/dL Creatinine 0.94 (0.60-1.30) mg/dL Estimated GFR Greater than 89 (>89) mL/min POC Glucose 125 H (68-110) mg/dl Random Glucose 172 H (74-106) mg/dL Calcium 7.8 L (8.5-10.1) mg/dL Magnesium 1.7 (1.5-2.5) mg/dL Total Bilirubin 1.1 H (0.2-1.0) mg/dL AST 155 H (15-37) U/L ALT 62 (12-78) U/L Alkaline Phosphatase 66 (45-117) U/L Total Creatine Kinase 273 (39-308) U/L CK-MB (CK-2) 4.8 H (0.5-3.6) ng/mL Troponin I 0.06 H (0.02-0.05) ng/mL B-Natriuretic Peptide (0-100) pg/mL Total Protein 7.6 (6.4-8.2) g/dL Albumin 3.5 (3.4-5.0) g/dL Lipase 82 (73-393) U/L Digoxin 0.1 L (0.8-2.0) ng/mL Urine Opiates Screen (Neg) Ur Barbiturates Screen (Neg) Ur Amphetamines Screen (Neg) U Benzodiazepines Scrn (Neg) Urine Cocaine Screen (Neg) U Cannabinoids Screen (Neg) Serum Alcohol (0-5) mg/dL 09/29/18 09/29/18 09/29/18 Range/Units 22:45 22:45 23:40 WBC (4.0-11.0) th/mm3 RBC (4.50-5.90) mil/mm3 Hgb (13.0-17.0) gm/dL Hct (39.0-51.0) % MCV (80.0-100.0) fL MCH (27.0-34.0) pg MCHC (32.0-36.0) % RDW (11.6-17.2) % Plt Count (150-450) th/mm3 MPV (7.0-11.0) fL Neut % (Auto) (16.0-70.0) % Lymph % (Auto) (9.0-44.0) % Kern % (Auto) (0.0-8.0) % Eos % (Auto) (0.0-4.0) % Baso % (Auto) (0.0-2.0) % Neut # (Auto) (1.8-7.7) th/mm3 Lymph # (Auto) (1.0-4.8) th/mm3 Kern # (Auto) (0.0-0.9) th/mm3 Eos # (Auto) (0.0-0.4) th/mm3 Baso # (Auto) (0.0-0.2) th/mm3 WBC Differential Differential Comment PT 11.4 (9.8-11.6) sec INR 1.1 Ratio APTT 24.7 (23.4-31.7) sec Sodium (136-145) meq/L Potassium (3.5-5.1) meq/L Chloride (98-107) meq/L Carbon Dioxide (21.0-32.0) meq/L Anion Gap (5-15) meq/L BUN (7-18) mg/dL Creatinine (0.60-1.30) mg/dL Estimated GFR (>89) mL/min POC Glucose (68-110) mg/dl Random Glucose (74-106) mg/dL Calcium (8.5-10.1) mg/dL Magnesium (1.5-2.5) mg/dL Total Bilirubin (0.2-1.0) mg/dL AST (15-37) U/L ALT (12-78) U/L Alkaline Phosphatase (45-117) U/L Total Creatine Kinase (39-308) U/L CK-MB (CK-2) (0.5-3.6) ng/mL Troponin I (0.02-0.05) ng/mL B-Natriuretic Peptide 504 H (0-100) pg/mL Total Protein (6.4-8.2) g/dL Albumin (3.4-5.0) g/dL Lipase (73-393) U/L Digoxin (0.8-2.0) ng/mL Urine Opiates Screen (Neg) Ur Barbiturates Screen (Neg) Ur Amphetamines Screen (Neg) U Benzodiazepines Scrn (Neg) Urine Cocaine Screen (Neg) U Cannabinoids Screen (Neg) Serum Alcohol 213 H (0-5) mg/dL 09/30/18 09/30/18 09/30/18 Range/Units 00:02 00:23 03:03 WBC (4.0-11.0) th/mm3 RBC (4.50-5.90) mil/mm3 Hgb (13.0-17.0) gm/dL Hct (39.0-51.0) % MCV (80.0-100.0) fL MCH (27.0-34.0) pg MCHC (32.0-36.0) % RDW (11.6-17.2) % Plt Count (150-450) th/mm3 MPV (7.0-11.0) fL Neut % (Auto) (16.0-70.0) % Lymph % (Auto) (9.0-44.0) % Kern % (Auto) (0.0-8.0) % Eos % (Auto) (0.0-4.0) % Baso % (Auto) (0.0-2.0) % Neut # (Auto) (1.8-7.7) th/mm3 Lymph # (Auto) (1.0-4.8) th/mm3 Kern # (Auto) (0.0-0.9) th/mm3 Eos # (Auto) (0.0-0.4) th/mm3 Baso # (Auto) (0.0-0.2) th/mm3 WBC Differential Differential Comment PT (9.8-11.6) sec INR Ratio APTT (23.4-31.7) sec Sodium (136-145) meq/L Potassium (3.5-5.1) meq/L Chloride (98-107) meq/L Carbon Dioxide (21.0-32.0) meq/L Anion Gap (5-15) meq/L BUN (7-18) mg/dL Creatinine (0.60-1.30) mg/dL Estimated GFR (>89) mL/min POC Glucose 221 H 135 H (68-110) mg/dl Random Glucose (74-106) mg/dL Calcium (8.5-10.1) mg/dL Magnesium (1.5-2.5) mg/dL Total Bilirubin (0.2-1.0) mg/dL AST (15-37) U/L ALT (12-78) U/L Alkaline Phosphatase (45-117) U/L Total Creatine Kinase (39-308) U/L CK-MB (CK-2) (0.5-3.6) ng/mL Troponin I (0.02-0.05) ng/mL B-Natriuretic Peptide (0-100) pg/mL Total Protein (6.4-8.2) g/dL Albumin (3.4-5.0) g/dL Lipase (73-393) U/L Digoxin (0.8-2.0) ng/mL Urine Opiates Screen Neg (Neg) Ur Barbiturates Screen Neg (Neg) Ur Amphetamines Screen Neg (Neg) U Benzodiazepines Scrn Neg (Neg) Urine Cocaine Screen Neg (Neg) U Cannabinoids Screen Neg (Neg) Serum Alcohol (0-5) mg/dL 09/30/18 Range/Units 04:00 WBC (4.0-11.0) th/mm3 RBC (4.50-5.90) mil/mm3 Hgb (13.0-17.0) gm/dL Hct (39.0-51.0) % MCV (80.0-100.0) fL MCH (27.0-34.0) pg MCHC (32.0-36.0) % RDW (11.6-17.2) % Plt Count (150-450) th/mm3 MPV (7.0-11.0) fL Neut % (Auto) (16.0-70.0) % Lymph % (Auto) (9.0-44.0) % Kern % (Auto) (0.0-8.0) % Eos % (Auto) (0.0-4.0) % Baso % (Auto) (0.0-2.0) % Neut # (Auto) (1.8-7.7) th/mm3 Lymph # (Auto) (1.0-4.8) th/mm3 Kern # (Auto) (0.0-0.9) th/mm3 Eos # (Auto) (0.0-0.4) th/mm3 Baso # (Auto) (0.0-0.2) th/mm3 WBC Differential Differential Comment PT (9.8-11.6) sec INR Ratio APTT (23.4-31.7) sec Sodium (136-145) meq/L Potassium (3.5-5.1) meq/L Chloride (98-107) meq/L Carbon Dioxide (21.0-32.0) meq/L Anion Gap (5-15) meq/L BUN (7-18) mg/dL Creatinine (0.60-1.30) mg/dL Estimated GFR (>89) mL/min POC Glucose 132 H (68-110) mg/dl Random Glucose (74-106) mg/dL Calcium (8.5-10.1) mg/dL Magnesium (1.5-2.5) mg/dL Total Bilirubin (0.2-1.0) mg/dL AST (15-37) U/L ALT (12-78) U/L Alkaline Phosphatase (45-117) U/L Total Creatine Kinase (39-308) U/L CK-MB (CK-2) (0.5-3.6) ng/mL Troponin I (0.02-0.05) ng/mL B-Natriuretic Peptide (0-100) pg/mL Total Protein (6.4-8.2) g/dL Albumin (3.4-5.0) g/dL Lipase (73-393) U/L Digoxin (0.8-2.0) ng/mL Urine Opiates Screen (Neg) Ur Barbiturates Screen (Neg) Ur Amphetamines Screen (Neg) U Benzodiazepines Scrn (Neg) Urine Cocaine Screen (Neg) U Cannabinoids Screen (Neg) Serum Alcohol (0-5) mg/dL Imaging Data Radiologist's impression: Chest X-Ray 09/29/18 22:12 CONCLUSION: 1. Cardiomegaly. 2. No acute focal pulmonary infiltrate or pulmonary vascular congestion. Head CT 09/29/18 22:12 CONCLUSION: 1. Redemonstration of moderate diffuse cerebral atrophy out of proportion for age. 2. No acute intracranial abnormality or significant interval change. . ECG Data Attestation: I personally reviewed and interpreted this ECG as follows: Interpretation: The patient had an EKG done on arrival. The patient's EKG revealed a sinus rhythm heart rate of 118, QRS duration 137 ms, QTC 371 ms, right bundle branch block is noted. The patient's repeat EKG showed A. fib with RVR heart rate of 151, QRS duration 125 ms, QTC 391 ms. Discharge Plan Discharge Disposition Patient Disposition: ED Admit(ED Internal Use Only) Discharge Order Discharge Orders: ED Use Only Admit Order (Routine); Ordered 09/30/18 Ordered By: Ifeoma Rondon Discharge Details Diagnosis: Atrial fibrillation with RVR, Elevated troponin, Hypoglycemia Physicians Team ED Provider: Ifeoma Rondon Primary Care Provider: UNKNOWN, Attending Provider: Vipul Toledo Status ED Status: Left Department Discharge Information Discharge Date/Time: 09/30/18 03:40
--- NOTE | 2018-09-29 22:34 | XR ---
EXAM DATE: 09/29/2018 10:30 PM EST AGE/SEX: 43 years / Male INDICATIONS: Chest pain. CLINICAL DATA: This is the patient's initial encounter. Patient reports that signs and symptoms have been present for 1 day and indicates a pain score of Nonresponsive. MEDICAL/SURGICAL HISTORY: Non-responsive. Non-responsive. COMPARISON: [facility], CHEST 1V SINGLE AP, 08/31/2018. . FINDINGS: The heart is enlarged. Left subclavian single lead pacemaker has its tip in the right ventricle. No p neumothorax is noted. The pulmonary vascular pattern is normal. The lungs are clear. CONCLUSION: 1. Cardiomegaly. 2. No acute focal pulmonary infiltrate or pulmonary vascular congestion. Electronically signed by: Flakito Dempsey MD Board Certified Radiologist 09/29/2018 10:32 PM EST
[2018-09-29 23:18] LABS: Alanine Aminotransferase 62 U/L (12-78); Albumin 3.5 g/dL (3.4-5.0); Anion Gap 15 meq/L (5-15); Aspartate Aminotransferase 155 U/L (15-37); Blood Urea Nitrogen 12 mg/dL (7-18); Calcium 7.8 mg/dL (8.5-10.1); Carbon Dioxide 12.2 meq/L (21.0-32.0); Chloride 110 meq/L (98-107); Glomerular Filtration Rate Greater Than 89 mL/min (>89); Glucose,Random 172 mg/dL (74-106); Lipase 82 U/L (73-393); Magnesium 1.7 mg/dL (1.5-2.5); Potassium 5.2 meq/L (3.5-5.1); Sodium 137 meq/L (136-145)
[2018-09-29 23:27] LABS: Baso % (Auto) 0.6 % (0.0-2.0); Eos % (Auto) 0.2 % (0.0-4.0); Hematocrit 44.2 % (39.0-51.0); Hemoglobin 14.5 gm/dL (13.0-17.0); Lymph # (Auto) 0.9 th/mm3 (1.0-4.8); Lymph % (Auto) 19.7 % (9.0-44.0); Mean Corpuscular HGB Conc 32.8 % (32.0-36.0); Mean Corpuscular Hemoglobin 31.3 pg (27.0-34.0); Mean Corpuscular Volume 95.5 fL (80.0-100.0); Mean Platelet Volume 9.9 fL (7.0-11.0); Mono # (Auto) 0.1 th/mm3 (0.0-0.9); Mono % (Auto) 2.8 % (0.0-8.0); Neut # (Auto) 3.6 th/mm3 (1.8-7.7); Neut % (Auto) 76.7 % (16.0-70.0); Platelet Count 156 th/mm3 (150-450); Red Blood Count 4.63 mil/mm3 (4.50-5.90); Red Cell Distribution Width 14.9 % (11.6-17.2); White Blood Count 4.7 th/mm3 (4.0-11.0)
[2018-09-29 23:32] LABS: Alkaline Phosphatase 66 U/L (45-117); Creatine Kinase 273 U/L (39-308); Digoxin 0.1 ng/mL (0.8-2.0); Total Protein 7.6 g/dL (6.4-8.2); Troponin I 0.06 ng/mL (0.02-0.05)
[2018-09-29 23:53] LABS: Creatine Kinase MB 4.8 ng/mL (0.5-3.6)
[2018-09-30] MEDS ORDERED: dilTIAZem Inj 125 MG in Sodium Chlor 0.9% Inj 100 ML IV.CONT PRN (00:03)
--- NOTE | 2018-09-30 00:09 | CT ---
EXAM DATE: 09/29/2018 11:49 PM EST AGE/SEX: 43 years / Male INDICATIONS: Altered mental status. CLINICAL DATA: This is the patient's initial encounter. Patient reports that signs and symptoms have been present for 1 day and indicates a pain score of 0/10. MEDICAL/SURGICAL HISTORY: Cardiovascular disease. Hypertension. Diabetes mellitus type II. DVT PE Pacemaker. RADIATION DOSE: 35.53 CTDI (mGy) COMPARISON: [facility] [place], CT HEAD W/O CONTRAST, 08/23/2018. . TECHNIQUE: CT of the head without contrast. Using automated exposure control and adjustment of the mA and/or kV according to patient size, radiation dose was kept as low as reasonably achievable to ob tain optimal diagnostic quality images. DICOM format image data is available electronically for revi ew and comparison. FINDINGS: Cerebrum: Moderate diffuse cerebral atrophy. The ventricles are normal for degree of atrophy. No reyna dence of midline shift, mass lesion, hemorrhage or acute infarction. No extraaxial fluid collections are seen. Posterior Fossa: The cerebellum and brainstem are intact. The 4th ventricle is midline. The cerebe llopontine angle is unremarkable. Extracranial: The visualized portion of the orbits is intact. Skull: The calvaria is intact. No evidence of skull fracture. CONCLUSION: 1. Redemonstration of moderate diffuse cerebral atrophy out of proportion for age. 2. No acute intracranial abnormality or significant interval change. . Electronically signed by: Eran Dee MD Board Certified Radiologist 09/30/2018 12:08 AM E
--- NOTE | 2018-09-30 00:37 | P.HPFP ---
History of Present Illness Primary Care Physician: UNKNOWN Chief Complaint: found down History of Present Illness: Mr Valdivia is a 43 year old male w/PMHx non-ischemic cardiomyopathy, cirrhosis, DVT, gastric ulcer, and pulmonary emboli presents to the ED by ambulance after being found down on the road. After being brought to the ED via [facility] he was found to be hypoglycemic but denies history of DM. History is limited due to patient being a poor historian and being hard of hearing. Patient states his pacemaker shocked him. This is the second time the pacemaker shocked him. He states he did not eat any breakfast and then took his medications and doesn't recall anything after that. He states that when he doesn't eat he sometimes gets weak and dehydrated. He feels very weak, dehydrated and thirsty now. He complains of some SOB. He denies any vomiting or nausea. He has been thirsty. Denies any fever or chills. He took his medications today (13 different pills), but does not recall what any of them are. He believes maybe his pills caused his problem today. He says he did drink water and orange juice today. His physician is Bernadette Santillan and he gets his medication from [facility] on [facility]. 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 He lives [address] [address] Patient denies any depression or anxiety. PMHx: Non-ischemic cardiomyopathy, cirrhosis of liver, DVT (deep venous thrombosis), gastric ulcer, pulmonary emboli SurgHx: AICD FMHx: denies Allergies: Iodine SocialHx: 2-3 16 oz beers daily, no tobacco use - Diagnosis (1) Atrial fibrillation with RVR (2) Non-ischemic cardiomyopathy (3) Hypoglycemia (4) Alcohol abuse (5) Liver cirrhosis (6) Nutrition, metabolism, and development symptoms Review of Systems unobtainable due to mental condition (pt is a poor historian) Constitutional: Denies chills, Denies fever(s), Denies headache(s) Cardiovascular: Reports shortness of breath, Denies chest pain Respiratory: Reports shortness of breath Gastrointestinal: Denies abdominal pain Genitourinary: Denies painful urination PMFSH - History History Provided By: Patient, Medical Record - Medical History Medical History: Medical History (Last Reviewed 09/29/18 @ 22:31 by Ifeoma Rondon MD) Cirrhosis of liver DVT (deep venous thrombosis) Gastric ulcer Heart attack Non-ischemic cardiomyopathy Pulmonary emboli - Surgical History Surgical History: Surgical History (Last Reviewed 09/29/18 @ 22:31 by Ifeoma Rondon MD) History of placement of internal cardiac defibrillator Pacemaker - Family History Family History: Family History (Last Reviewed 09/29/18 @ 22:31 by Ifeoma Rondon MD) Mother Coronary artery disease Grandparent Coronary artery disease Father Family history of throat cancer - Social History I have reviewed the patient's Social History: Yes - Tobacco History Second Hand Smoke Exposure: No Tobacco Use In Past 30 Days: Yes Smoking Status: Current every day smoker Tobacco Type: Cigarettes - Alcohol History How Often Do You Have a Drink Containing Alcohol: 4 or more times a week - Substance Use History Substance History: No History of Abuse - Immunization History Tetanus Immunization: Unsure Medications and Allergies Active Medications: Active Medications Aspirin (Aspirin Chew) 162 mg PO DAILY CALEB Dextrose (D50w Vial) 50 ml IV.PUSH UNSCH PRN PRN Reason: PER HYPOGLYCEMIA PROTOCOL Diltiazem HCl 125 mg/ Sodium (Chloride) 125 mls @ 5 mls/hr IV.CONT TITRATE PRN ; Protocol PRN Reason: Per Protocol Sodium Chloride (Ns Flush) 2 ml IV.FLUSH UNSCH PRN PRN Reason: FLUSH AFTER USING IV ACCESS Allergies Allergy/AdvReac Type Severity Reaction Status Date / Time Fish Containing Products Allergy Severe itching Verified 09/29/18 22:09 iodine Allergy Severe itching Verified 09/29/18 22:09 potassium iodide Allergy Severe itching Verified 09/29/18 22:09 povidone-iodine Allergy Severe itching Verified 09/29/18 22:09 sodium iodide Allergy Severe itching Verified 09/29/18 22:09 Home Medications Medication Instructions Recorded Confirmed Type carvedilol 12.5 mg PO BID 08/23/18 09/01/18 History digoxin 0.25 mg PO DAILY 08/23/18 09/01/18 History furosemide [Lasix] 40 mg PO BID 08/23/18 09/01/18 History isosorbide mononitrate 30 mg PO DAILY 08/23/18 09/01/18 History mirtazapine 30 mg PO HS 08/23/18 09/01/18 History potassium chloride 20 meq PO DAILY 08/23/18 09/01/18 History quetiapine [Seroquel] 100 mg PO HS 08/23/18 09/01/18 History ramipril 5 mg PO DAILY 08/23/18 09/01/18 History rivaroxaban [Xarelto] 15 mg PO QPM 08/23/18 09/01/18 History Exam Vital signs: Vital Signs 09/29/18 22:04 09/29/18 22:12 Temperature 97.9 F Pulse Rate 72 Respiratory Rate 16 Blood Pressure 105/72 Pulse Oximetry 100 100 Narrative: GENERAL: 43 YO Af-Am male who appears cachectic, thin and somnolent, hard of hearing, lying in bed. SKIN: Warm and dry. No lesions or rash. HEAD: Normocephalic. Atraumatic. Dry MM. EOMI. EYES: No scleral icterus. No injection or drainage. NECK: Supple, trachea midline. Normal thyroid. CARDIOVASCULAR: Regular rate and rhythm without murmurs, gallops, or rubs. 1+ peripheral pulses. RESPIRATORY: Breath sounds equal bilaterally. No accessory muscle use. GASTROINTESTINAL: Abdomen soft, non-tender, nondistended. +BS. No hepatosplenomegaly. MUSCULOSKELETAL: No cyanosis, or edema. BACK: Nontender without obvious deformity. Results - Labs Result diagrams: 09/29/18 22:45 09/29/18 22:45 Abnormal lab results 09/29/18 09/29/18 09/29/18 Range/Units 22:09 22:45 22:45 Neut % (Auto) 76.7 H (16.0-70.0) % Lymph # (Auto) 0.9 L (1.0-4.8) th/mm3 Potassium 5.2 H (3.5-5.1) meq/L Chloride 110 H (98-107) meq/L Carbon Dioxide 12.2 L (21.0-32.0) meq/L POC Glucose 125 H (68-110) mg/dl Random Glucose 172 H (74-106) mg/dL Calcium 7.8 L (8.5-10.1) mg/dL Total Bilirubin 1.1 H (0.2-1.0) mg/dL AST 155 H (15-37) U/L CK-MB (CK-2) 4.8 H (0.5-3.6) ng/mL Troponin I 0.06 H (0.02-0.05) ng/mL B-Natriuretic Peptide (0-100) pg/mL Digoxin 0.1 L (0.8-2.0) ng/mL Serum Alcohol (0-5) mg/dL 09/29/18 09/29/18 09/30/18 Range/Units 22:45 22:45 00:02 Neut % (Auto) (16.0-70.0) % Lymph # (Auto) (1.0-4.8) th/mm3 Potassium (3.5-5.1) meq/L Chloride (98-107) meq/L Carbon Dioxide (21.0-32.0) meq/L POC Glucose 221 H (68-110) mg/dl Random Glucose (74-106) mg/dL Calcium (8.5-10.1) mg/dL Total Bilirubin (0.2-1.0) mg/dL AST (15-37) U/L CK-MB (CK-2) (0.5-3.6) ng/mL Troponin I (0.02-0.05) ng/mL B-Natriuretic Peptide 504 H (0-100) pg/mL Digoxin (0.8-2.0) ng/mL Serum Alcohol 213 H (0-5) mg/dL Short CBC 09/29/18 Range/Units 22:45 WBC 4.7 (4.0-11.0) th/mm3 Hgb 14.5 (13.0-17.0) gm/dL Hct 44.2 (39.0-51.0) % Plt Count 156 (150-450) th/mm3 BMP 09/29/18 22:45 Sodium 137 Potassium 5.2 H Chloride 110 H Carbon Dioxide 12.2 L BUN 12 Creatinine 0.94 Calcium 7.8 L Cardiac Enzymes 09/29/18 Range/Units 22:45 Total Creatine Kinase 273 (39-308) U/L CK-MB (CK-2) 4.8 H (0.5-3.6) ng/mL Troponin I 0.06 H (0.02-0.05) ng/mL Liver Function 09/29/18 Range/Units 22:45 Total Bilirubin 1.1 H (0.2-1.0) mg/dL AST 155 H (15-37) U/L ALT 62 (12-78) U/L Alkaline Phosphatase 66 (45-117) U/L Albumin 3.5 (3.4-5.0) g/dL - Imaging Impressions Chest X-Ray 09/29/18 22:12 CONCLUSION: 1. Cardiomegaly. 2. No acute focal pulmonary infiltrate or pulmonary vascular congestion. Head CT 09/29/18 22:12 CONCLUSION: 1. Redemonstration of moderate diffuse cerebral atrophy out of proportion for age. 2. No acute intracranial abnormality or significant interval change. . Caprini VTE Risk Assessment Caprini VTE Risk Assessment: No/Low Risk (score <= 1) Assessment and Plan - Assessment (1) Atrial fibrillation with RVR Code(s): I48.91 - Unspecified atrial fibrillation Status: Acute (2) Non-ischemic cardiomyopathy Code(s): I42.8 - Other cardiomyopathies Status: Acute (3) Hypoglycemia Code(s): E16.2 - Hypoglycemia, unspecified Status: Acute (4) Alcohol abuse Code(s): F10.10 - Alcohol abuse, uncomplicated Status: Acute (5) Liver cirrhosis Code(s): K74.60 - Unspecified cirrhosis of liver Status: Acute (6) Nutrition, metabolism, and development symptoms Code(s): R63.8 - Other symptoms and signs concerning food and fluid intake Status: Acute - Assessment and Plan 43 YO male w/PMHx non-ischemic cardiomyopathy likely 2/2 chronic EtOH abuse with last ECHO 10/10/17 showing LVEF 20%, IN s/p AICD found down on the road and noted to be hypoglycemic and with AFib/RVR in ED. Pt has been started on Cardizem gtt and admitted for rate control, EtOH withdrawal, hyperkalemia 5.2, hypoglycemia and Hx of noncompliance. DDx: AFib RVR 2/2 worsening cardiomyopathy from EtOH; infection Afib RVR with rate in the 110-120s -Diltiazem gtt, titrate per protocol -Cardiology consult--appreciate recs -Tele -Supplemental O2, titrate to need -Troponin 0.06; trend troponins -Restart home medications once verified -Trend EKGs -ASA 162 mg daily -Restart home digoxin 250 mcg daily Non-ischemic cardiomyopathy with CHF -BNP 504; appears close to baseline -Hold Lasix due to BP EtOH withdrawal -Serum EtOH 213 on admission -AST 155/ALT 62 -CIWA -Vitamins (thiamine, folate, MV) -IVF -Clonidine 0.1 mg q6h PRN; hold is SBP<100 and/or DBP<60 Hyperkalemia 5.2 -Monitor Hypoglycemia - resolved/now hyperglycemic to 221 -Glucagon 1 mg in ED once -NS 100 mls/hr -A1C in Oct 2017 5.7 -Low SSI FEN/GI/PPx: Fluids: NS IVF as pt appears dry; DC in AM and transition to PO Electrolytes: Hyperkalemia as above Nutrition: Cardiac diet with sodium restriction <2000mg daily GI: Protonix 40 mg daily PPx: SCDs; holding Xarelto due to severe warming with Diltiazem Pt SDW Dr Beatriz Rondon
[2018-09-30 00:42] LABS: Activated Partial Thrombo Time 24.7 sec (23.4-31.7); INR 1.1 Ratio; Prothrombin Time 11.4 sec (9.8-11.6)
[2018-09-30 00:55] LABS: Amphetamine Screen,Urine Neg (Neg); Barbiturate Screen,Urine Neg (Neg); Cannabinoid Screen,Urine Neg (Neg); Cocaine Screen,Urine Neg (Neg)
[2018-09-30 01:03] LABS: Opiate Screen,Urine Neg (Neg)
[2018-09-30] MEDS ORDERED: LORazepam 1 MG Tablet PO PRN (01:21)
[2018-09-30] MEDS ORDERED: Haloperidol Inj 5 MG/ML Ampul IV.PUSH PRN (01:21)
[2018-09-30] MEDS: Sod Chloride 0.9% Inj 1,000 ML IV.CONT SCH ×3 (01:29→21:25)
[2018-09-30] MEDS ORDERED: Dextrose 50% in Water 50 ML Vial IV.PUSH PRN (01:56)
[2018-09-30] MEDS ORDERED: Chlorhexidine Gluconate 2% 1 Pack (2 Cloths) TOPICAL PRN (04:00)
[2018-09-30] MEDS: Chlorhexidine Gluconate 2% 1 Pack (2 Cloths) TOPICAL SCH (04:07)
[2018-09-30] MEDS: Insulin NovoLOG Aspart Correctional Sugar Inj SQ SCH ×3 (06:53→17:38)
[2018-09-30] MEDS: Digoxin 250 MCG Tablet PO SCH (09:00)
[2018-09-30] MEDS: Senna/Docusate Sodium 8.6/50 MG Tablet PO SCH ×2 (09:00→21:09)
[2018-09-30] MEDS: Folic Acid 1 MG Tablet PO SCH (09:00)
[2018-09-30] MEDS: Multivitamin/Minerals Therapeutic Tablet PO SCH (09:00)
[2018-09-30] MEDS ORDERED: Pantoprazole Sodium 20 MG DR Tablet PO SCH (11:15)
[2018-09-30] MEDS: Furosemide 40 MG Tablet PO SCH (11:33)
[2018-09-30] MEDS: Carvedilol 12.5 MG Tablet PO SCH ×2 (11:33→21:09)
--- NOTE | 2018-09-30 11:34 | P.PNFP ---
Subjective Interval history: Patient reports that he feels fine. He denies any chest pain, shortness of breath. He wants to know if he can go home today. Discussed plan of care with patient who expressed understanding. <Clifford Spring - 09/30/18 11:34> Results - Labs Result diagrams: 10/01/18 05:58 10/01/18 05:58 <Vipul Toledo - 10/01/18 08:38> Abnormal lab results 09/30/18 09/30/18 10/01/18 Range/Units 10:52 17:06 05:58 RBC 3.88 L (4.50-5.90) mil/mm3 Hgb 12.2 L D (13.0-17.0) gm/dL Hct 36.5 L (39.0-51.0) % Plt Count 121 L (150-450) th/mm3 Sharkey % (Auto) 14.1 H (0.0-8.0) % Chloride (98-107) meq/L Carbon Dioxide (21.0-32.0) meq/L POC Glucose 123 H (68-110) mg/dl Calcium (8.5-10.1) mg/dL Total Bilirubin (0.2-1.0) mg/dL AST (15-37) U/L Troponin I 0.11 H (0.02-0.05) ng/mL Total Protein (6.4-8.2) g/dL Albumin (3.4-5.0) g/dL 10/01/18 Range/Units 05:58 RBC (4.50-5.90) mil/mm3 Hgb (13.0-17.0) gm/dL Hct (39.0-51.0) % Plt Count (150-450) th/mm3 Sharkey % (Auto) (0.0-8.0) % Chloride 115 H (98-107) meq/L Carbon Dioxide 20.5 L (21.0-32.0) meq/L POC Glucose (68-110) mg/dl Calcium 7.6 L (8.5-10.1) mg/dL Total Bilirubin 2.3 H (0.2-1.0) mg/dL AST 50 H (15-37) U/L Troponin I (0.02-0.05) ng/mL Total Protein 5.9 L D (6.4-8.2) g/dL Albumin 2.8 L D (3.4-5.0) g/dL Short CBC 10/01/18 Range/Units 05:58 WBC 5.4 (4.0-11.0) th/mm3 Hgb 12.2 L D (13.0-17.0) gm/dL Hct 36.5 L (39.0-51.0) % Plt Count 121 L (150-450) th/mm3 BMP 10/01/18 10/01/18 05:58 05:58 Sodium 144 Potassium 4.5 Chloride 115 H Carbon Dioxide 20.5 L BUN 13 Creatinine 1.01 Calcium 7.6 L Cancelled Cardiac Enzymes 09/30/18 Range/Units 10:52 Troponin I 0.11 H (0.02-0.05) ng/mL Liver Function 10/01/18 10/01/18 Range/Units 05:58 05:58 Total Bilirubin 2.3 H (0.2-1.0) mg/dL AST 50 H (15-37) U/L ALT 36 (12-78) U/L Alkaline Phosphatase 53 (45-117) U/L Albumin 2.8 L D Cancelled (3.4-5.0) g/dL <Vipul Toledo - 10/01/18 08:38> Abnormal lab results 09/29/18 09/29/18 09/29/18 Range/Units 22:09 22:45 22:45 Neut % (Auto) 76.7 H (16.0-70.0) % Lymph # (Auto) 0.9 L (1.0-4.8) th/mm3 Potassium 5.2 H (3.5-5.1) meq/L Chloride 110 H (98-107) meq/L Carbon Dioxide 12.2 L (21.0-32.0) meq/L POC Glucose 125 H (68-110) mg/dl Random Glucose 172 H (74-106) mg/dL Calcium 7.8 L (8.5-10.1) mg/dL Total Bilirubin 1.1 H (0.2-1.0) mg/dL AST 155 H (15-37) U/L CK-MB (CK-2) 4.8 H (0.5-3.6) ng/mL Troponin I 0.06 H (0.02-0.05) ng/mL B-Natriuretic Peptide (0-100) pg/mL Digoxin 0.1 L (0.8-2.0) ng/mL Serum Alcohol (0-5) mg/dL 09/29/18 09/29/18 09/30/18 Range/Units 22:45 22:45 00:02 Neut % (Auto) (16.0-70.0) % Lymph # (Auto) (1.0-4.8) th/mm3 Potassium (3.5-5.1) meq/L Chloride (98-107) meq/L Carbon Dioxide (21.0-32.0) meq/L POC Glucose 221 H (68-110) mg/dl Random Glucose (74-106) mg/dL Calcium (8.5-10.1) mg/dL Total Bilirubin (0.2-1.0) mg/dL AST (15-37) U/L CK-MB (CK-2) (0.5-3.6) ng/mL Troponin I (0.02-0.05) ng/mL B-Natriuretic Peptide 504 H (0-100) pg/mL Digoxin (0.8-2.0) ng/mL Serum Alcohol 213 H (0-5) mg/dL 09/30/18 09/30/18 09/30/18 Range/Units 03:03 04:00 05:02 Neut % (Auto) (16.0-70.0) % Lymph # (Auto) (1.0-4.8) th/mm3 Potassium (3.5-5.1) meq/L Chloride (98-107) meq/L Carbon Dioxide (21.0-32.0) meq/L POC Glucose 135 H 132 H (68-110) mg/dl Random Glucose (74-106) mg/dL Calcium (8.5-10.1) mg/dL Total Bilirubin (0.2-1.0) mg/dL AST (15-37) U/L CK-MB (CK-2) (0.5-3.6) ng/mL Troponin I 0.11 H (0.02-0.05) ng/mL B-Natriuretic Peptide (0-100) pg/mL Digoxin (0.8-2.0) ng/mL Serum Alcohol (0-5) mg/dL 09/30/18 Range/Units 06:45 Neut % (Auto) (16.0-70.0) % Lymph # (Auto) (1.0-4.8) th/mm3 Potassium (3.5-5.1) meq/L Chloride (98-107) meq/L Carbon Dioxide (21.0-32.0) meq/L POC Glucose 151 H (68-110) mg/dl Random Glucose (74-106) mg/dL Calcium (8.5-10.1) mg/dL Total Bilirubin (0.2-1.0) mg/dL AST (15-37) U/L CK-MB (CK-2) (0.5-3.6) ng/mL Troponin I (0.02-0.05) ng/mL B-Natriuretic Peptide (0-100) pg/mL Digoxin (0.8-2.0) ng/mL Serum Alcohol (0-5) mg/dL Short CBC 09/29/18 Range/Units 22:45 WBC 4.7 (4.0-11.0) th/mm3 Hgb 14.5 (13.0-17.0) gm/dL Hct 44.2 (39.0-51.0) % Plt Count 156 (150-450) th/mm3 BMP 09/29/18 22:45 Sodium 137 Potassium 5.2 H Chloride 110 H Carbon Dioxide 12.2 L BUN 12 Creatinine 0.94 Calcium 7.8 L Cardiac Enzymes 09/29/18 09/30/18 Range/Units 22:45 05:02 Total Creatine Kinase 273 (39-308) U/L CK-MB (CK-2) 4.8 H (0.5-3.6) ng/mL Troponin I 0.06 H 0.11 H (0.02-0.05) ng/mL Liver Function 09/29/18 Range/Units 22:45 Total Bilirubin 1.1 H (0.2-1.0) mg/dL AST 155 H (15-37) U/L ALT 62 (12-78) U/L Alkaline Phosphatase 66 (45-117) U/L Albumin 3.5 (3.4-5.0) g/dL <Yaneli R3,Elmer - 09/30/18 11:34> - Imaging Impressions Chest X-Ray 09/29/18 22:12 CONCLUSION: 1. Cardiomegaly. 2. No acute focal pulmonary infiltrate or pulmonary vascular congestion. Head CT 09/29/18 22:12 CONCLUSION: 1. Redemonstration of moderate diffuse cerebral atrophy out of proportion for age. 2. No acute intracranial abnormality or significant interval change. . <Clifford Spring - 09/30/18 11:34> Physical Exam Vital signs: Vital Signs 09/30/18 08:45 09/30/18 09:00 09/30/18 09:15 Temperature Pulse Rate 72 74 81 Respiratory Rate 26 H 16 26 H Blood Pressure 99/63 L 95/56 L 94/58 L Pulse Oximetry 98 100 100 09/30/18 09:30 09/30/18 09:45 09/30/18 10:00 Temperature Pulse Rate 75 81 75 Respiratory Rate 21 18 18 Blood Pressure 91/55 L 89/56 L 93/59 L Pulse Oximetry 100 99 98 09/30/18 10:15 09/30/18 10:30 09/30/18 10:45 Temperature Pulse Rate 78 79 75 Respiratory Rate 17 19 17 Blood Pressure 93/61 L 95/65 L 96/65 L Pulse Oximetry 98 99 100 09/30/18 11:00 09/30/18 11:15 09/30/18 11:30 Temperature Pulse Rate 75 78 74 Respiratory Rate 19 19 17 Blood Pressure 94/65 L 95/64 L 94/63 L Pulse Oximetry 100 100 100 09/30/18 11:45 09/30/18 12:00 09/30/18 12:15 Temperature 98.4 F Pulse Rate 79 81 77 Respiratory Rate 20 18 18 Blood Pressure 95/66 L 97/68 L 97/67 L Pulse Oximetry 100 100 99 09/30/18 12:30 09/30/18 12:45 09/30/18 13:00 Temperature Pulse Rate 78 83 85 Respiratory Rate 17 29 H 29 H Blood Pressure 100/73 88/62 L 103/68 Pulse Oximetry 100 100 96 09/30/18 14:00 09/30/18 16:00 09/30/18 17:54 Temperature 98.4 F 98.1 F Pulse Rate 75 84 86 Respiratory Rate 16 16 Blood Pressure 96/74 L 95/73 L Pulse Oximetry 98 98 09/30/18 19:00 09/30/18 20:00 09/30/18 21:00 Temperature 98.5 F Pulse Rate 89 82 80 Respiratory Rate 16 Blood Pressure 99/65 L Pulse Oximetry 97 09/30/18 22:00 09/30/18 23:00 10/01/18 00:00 Temperature 98.3 F Pulse Rate 76 68 64 Respiratory Rate 18 Blood Pressure 92/66 L Pulse Oximetry 98 10/01/18 01:00 10/01/18 02:00 10/01/18 03:00 Temperature 98.8 F Pulse Rate 60 62 69 Respiratory Rate 16 Blood Pressure 101/75 Pulse Oximetry 98 10/01/18 04:00 10/01/18 05:00 10/01/18 06:00 Temperature Pulse Rate 64 68 77 Respiratory Rate Blood Pressure Pulse Oximetry 10/01/18 07:00 Temperature Pulse Rate 77 Respiratory Rate Blood Pressure Pulse Oximetry Intake & Output 09/30/18 10/01/18 10/01/18 18:59 06:59 18:59 Intake Total 1480 / 1480 1240 / 1240 Output Total 200 / 200 250 / 250 Balance 1280 / 1280 990 / 990 Weight 47.4 kg Intake: IV 1000 / 1000 1000 / 1000 NS Inj 1,000 ML @ 100 mls/hr IV 1000 / 1000 1000 / 1000 .CONT .Q10H [facility] Rx#:[id number] Oral 480 / 480 240 / 240 Output: Urine 200 / 200 250 / 250 <Vipul Toledo - 10/01/18 08:38> Vital Signs 09/29/18 22:04 09/29/18 22:12 09/29/18 23:14 Temperature 97.9 F Pulse Rate 72 117 H Respiratory Rate 16 16 Blood Pressure 105/72 Pulse Oximetry 100 100 09/30/18 02:53 09/30/18 03:00 09/30/18 04:00 Temperature Pulse Rate 72 82 79 Respiratory Rate 16 16 Blood Pressure 94/74 L 98/72 L Pulse Oximetry 09/30/18 04:15 09/30/18 04:30 09/30/18 05:00 Temperature 97.7 F Pulse Rate 74 72 71 Respiratory Rate 21 14 15 Blood Pressure 95/64 L 89/58 L Pulse Oximetry 100 99 100 09/30/18 05:30 09/30/18 06:00 09/30/18 06:30 Temperature Pulse Rate 74 75 76 Respiratory Rate 12 13 15 Blood Pressure 94/59 L 93/62 L 91/59 L Pulse Oximetry 99 99 99 09/30/18 06:45 09/30/18 07:00 09/30/18 07:15 Temperature Pulse Rate 74 79 77 Respiratory Rate 13 17 17 Blood Pressure 93/59 L 98/65 L 99/65 L Pulse Oximetry 99 99 100 09/30/18 07:30 09/30/18 07:45 09/30/18 07:47 Temperature Pulse Rate 75 72 Respiratory Rate 16 16 Blood Pressure 96/64 L 95/64 L Pulse Oximetry 97 98 98 09/30/18 08:00 09/30/18 08:15 09/30/18 08:30 Temperature 98.3 F Pulse Rate 77 87 89 Respiratory Rate 16 33 H 32 H Blood Pressure 96/66 L 96/69 L 103/75 Pulse Oximetry 99 97 99 09/30/18 08:45 09/30/18 09:00 09/30/18 09:15 Temperature Pulse Rate 72 74 81 Respiratory Rate 26 H 16 26 H Blood Pressure 99/63 L 95/56 L 94/58 L Pulse Oximetry 98 100 100 09/30/18 09:30 09/30/18 09:45 09/30/18 10:00 Temperature Pulse Rate 75 81 75 Respiratory Rate 21 18 18 Blood Pressure 91/55 L 89/56 L 93/59 L Pulse Oximetry 100 99 98 Intake & Output 09/29/18 09/30/18 09/30/18 18:59 06:59 18:59 Intake Total 580 / 580 Output Total 1400 / 1400 Balance -820 / -820 Weight 45.2 kg Intake: Oral 580 / 580 Output: Urine 1400 / 1400 Other: # Bowel Movements 0 Weight On Admission 45.2 kg <Yaneli Clifford Jay - 09/30/18 11:34> Narrative: GENERAL: 43 YO Af-Am male who appears thin and hard of hearing, lying in bed. SKIN: Warm and dry. No lesions or rash. HEAD: Normocephalic. Atraumatic. MMM. EOMI. EYES: No scleral icterus; muddy sclera bilaterally. No injection or drainage. NECK: Supple, trachea midline. No JVD. CARDIOVASCULAR: Regular rate and rhythm without murmurs, gallops, or rubs. 2+ peripheral pulses. RESPIRATORY: Breath sounds equal bilaterally. No accessory muscle use. GASTROINTESTINAL: Abdomen soft, non-tender, nondistended. +BS. MUSCULOSKELETAL: No cyanosis, or edema. No calf tenderness bilaterally. BACK: Nontender without obvious deformity. <Clifford Spring - 09/30/18 11:34> Assessment and Plan - Assessment (1) Atrial fibrillation with RVR Code(s): I48.91 - Unspecified atrial fibrillation Status: Acute (2) Non-ischemic cardiomyopathy Code(s): I42.8 - Other cardiomyopathies Status: Acute (3) Hypoglycemia Code(s): E16.2 - Hypoglycemia, unspecified Status: Acute (4) Alcohol abuse Code(s): F10.10 - Alcohol abuse, uncomplicated Status: Acute (5) Liver cirrhosis Code(s): K74.60 - Unspecified cirrhosis of liver Status: Acute (6) Nutrition, metabolism, and development symptoms Code(s): R63.8 - Other symptoms and signs concerning food and fluid intake Status: Acute <Vipul Toledo - 10/01/18 08:38> (1) Atrial fibrillation with RVR Code(s): I48.91 - Unspecified atrial fibrillation Status: Acute (2) Non-ischemic cardiomyopathy Code(s): I42.8 - Other cardiomyopathies Status: Acute (3) Hypoglycemia Code(s): E16.2 - Hypoglycemia, unspecified Status: Acute (4) Alcohol abuse Code(s): F10.10 - Alcohol abuse, uncomplicated Status: Acute (5) Liver cirrhosis Code(s): K74.60 - Unspecified cirrhosis of liver Status: Acute (6) Nutrition, metabolism, and development symptoms Code(s): R63.8 - Other symptoms and signs concerning food and fluid intake Status: Acute <Clifford Spring - 09/30/18 11:22> - Assessment and Plan 43 YO male w/PMHx non-ischemic cardiomyopathy likely 2/2 chronic EtOH abuse with last ECHO 10/10/17 showing LVEF 20%, [place] s/p AICD found down on the road and noted to be hypoglycemic and with AFib/RVR in ED. Pt has been started on Cardizem gtt and admitted for rate control, EtOH withdrawal, hyperkalemia 5.2, hypoglycemia and Hx of noncompliance. DDx: AFib RVR 2/2 worsening cardiomyopathy from EtOH; infection; hypoglycemia 2/2 alcohol use. Afib RVR with rate in the 110-120s -Diltiazem gtt, will titrate off today and resume patient's home medications of carvedilol, digoxin, Xarelto; hold Lasix, isosorbide mononitrate for low bp -Cardiology consult--appreciate recs -Tele -Supplemental O2, titrate as needed -Troponin trend: 0.06, 0.11 -Nurse called patient's pharmacy to verify home medications -Trend EKGs -ASA 162 mg daily Non-ischemic cardiomyopathy with CHF -BNP 504; appears close to baseline -Hold Lasix, isosorbide mononitrate due to low BP EtOH withdrawal -Serum EtOH 213 on admission -AST 155/ALT 62 -CIHI protocol ordered -Vitamins (thiamine, folate, MV) -IVF -Clonidine 0.1 mg q6h PRN for hypertension Hyperkalemia 5.2 -Continue to monitor Hypoglycemia - resolved/now hyperglycemic to 221 -Glucagon 1 mg in ED once -NS 100 mls/hr -A1C in Oct 2017 5.7 -Low SSI FEN/GI/PPx: Fluids: NS IVF; will soon transition to PO Electrolytes: Hyperkalemia as above Nutrition: Cardiac diet with sodium restriction <2000mg daily GI: Protonix 40 mg daily PPx: SCDs; will resume Xarelto tonight after discontinuation of Diltiazem Pt s/d/w Dr. Toledo, Dr. Beltran, Dr. Quick <Clifford Spring - 09/30/18 11:34> - Attending Attestation The exam, history, and the medical decision-making described in the above note were completed with the assistance of the resident physician. I reviewed and agree with the findings presented. I attest that I had a [id number] encounter with the patient on the same day, and personally performed and documented my assessment and findings in the medical record. <Vipul oTledo - 10/01/18 08:38>
[2018-09-30] MEDS ORDERED: Isosorbide Mononitrate 30 MG ER 24HR Tablet (Imdur) PO SCH (12:00)
[2018-09-30 17:07] LABS: Hemoglobin A1c 5.6 % (4.3-6.0)
--- NOTE | 2018-09-30 17:53 | ECG ---
Date Performed: 09/30/2018 Time Performed: 11:41:59 PTAGE: 43 years EKG: Sinus rhythm POSSIBLE RIGHT ATRIAL ENLARGEMENT LEFT ATRIAL ENLARGEMENT POSSIBLE RIGHT VENTRICULAR CONDUCTION FABIOLA Y LEFT ANTERIOR FASCICULAR BLOCK ANTEROSEPTAL MYOCARDIAL INFARCTION , OF INDETERMINATE AGE ABNORMAL E CG PREVIOUS TRACING : 09/30/2018 07.19 Since the previous tracing, no significant change noted DOCTOR: Leatha Amezquita Interpretating Date/Time 09/30/2018 17:52:12
[2018-09-30] MEDS ORDERED: Rivaroxaban 15 MG Tablet PO SCH (18:00)
[2018-09-30] MEDS ORDERED: Rivaroxaban 20 MG Tablet PO SCH (18:00)
--- NOTE | 2018-09-30 18:14 | ECG ---
Date Performed: 09/30/2018 Time Performed: 07:19:05 PTAGE: 43 years EKG: Sinus rhythm POSSIBLE RIGHT ATRIAL ENLARGEMENT LEFT ATRIAL ENLARGEMENT POSSIBLE RIGHT VENTRICULAR CONDUCTION FABIOLA Y LEFT ANTERIOR FASCICULAR BLOCK ANTEROSEPTAL MYOCARDIAL INFARCTION , OF INDETERMINATE AGE ABNORMAL E CG PREVIOUS TRACING : 09/29/2018 23.59 Compared to previous tracing, a fib no longer present DOCTOR: Leatha Amezquita Interpretating Date/Time 09/30/2018 18:12:48
--- NOTE | 2018-09-30 18:26 | ECG ---
Date Performed: 09/29/2018 Time Performed: 23:59:35 PTAGE: 43 years EKG: ATRIAL FIBRILLATION WITH RAPID VENTRICULAR RESPONSE POSSIBLE RIGHT VENTRICULAR CONDUCTION D ELAY LEFT ANTERIOR FASCICULAR BLOCK ANTEROSEPTAL MYOCARDIAL INFARCTION ABNORMAL ECG PREVIOUS TRACING : 09/01/2018 10.04 Compared to previous tracing, rate faster DOCTOR: Leatha Amezquita Interpretating Date/Time 09/30/2018 18:25:39
[2018-09-30] MEDS ORDERED: Mirtazapine 15 MG Tablet PO SCH (21:00)
[2018-09-30] MEDS ORDERED: QUEtiapine 100 MG Tablet PO SCH (21:00)
--- NOTE | 2018-09-30 21:03 | MB ---
cc: Sylvester Campuzano DO DATE: 09/30/2018 REASON FOR CONSULTATION: AICD firing. HISTORY OF PRESENT ILLNESS: Satya Valdivia is a 43-year-old male who presented to [facility] after being found down on the road. He was brought in by [facility], as he was found to be hypoglycemic with a blood sugar of 21. The patient is overall a poor historian and difficult to get information from. Apparently, he did not eat breakfast and then took his medication and does not recall anything after that. He states that his pacemaker shocked him, but cannot tell me if it was while he was down on the road or before this. He states that he feels very dehydrated. When he does not eat, he feels weak and dehydrated. He denies any chest pain or shortness of breath. He has a known nonischemic cardiomyopathy, as well as atrial fibrillation for which his AICD has fired for atrial fibrillation with rapid ventricular response in the past. In seeing him, he is currently hemodynamically stable without chest pain or shortness of breath. PAST MEDICAL HISTORY: 1. Nonischemic cardiomyopathy. 2. Atrial fibrillation. 3. Cirrhosis. 4. Deep venous thrombosis. 5. History of pulmonary embolism. 6. Gastric ulcer. PAST SURGICAL HISTORY: 1. AICD implantation (10/14/2017) with a Biotronik ICD (model #[id number], serial #[id number]). 2. Cardiac catheterization (05/07/2015) with widely patent coronary arteries. ALLERGIES: 1. FISH CONTAINING PRODUCTS. 2. IODINE. MEDICATIONS: 1. Potassium 20 mEq daily. 2. Imdur 30 mg daily. 3. Lasix 40 mg b.i.d. 4. Digoxin 0.25 mg daily. 5. Coreg 12.5 mg b.i.d. 6. Xarelto 20 mg every night. 7. Seroquel 100 mg every night. 8. Mirtazapine 30 mg every night. 9. Omeprazole 20 mg daily. FAMILY HISTORY: Denies premature coronary artery disease or sudden cardiac within the family. SOCIAL HISTORY: The patient drinks 2-3 16-ounce beers daily. He denies tobacco abuse. He does have a history of cocaine abuse in the past with his most recent UDS being negative for cocaine. REVIEW OF SYSTEMS: Fourteen systems were reviewed including osteopathic. Pertinent positives and negatives above, otherwise negative. PHYSICAL EXAMINATION: VITAL SIGNS: Temperature 98.5, heart rate 83, blood pressure 103/68, respirations 16, pulse oximetry 96% on room air. GENERAL: The patient appears mildly cachectic, but in no acute distress. Alert, awake and oriented x 3. HEENT: Extraocular muscles intact. Mucous membranes moist. NECK: Supple. No JVD at 45 degrees. No carotid bruits heard bilaterally. Carotid upstroke is brisk in nature. HEART: Irregularly irregular. Positive first and second heart sounds with no noted murmurs, gallops or rubs. LUNGS: Clear to auscultation bilaterally. No wheezes, rales or rhonchi. ABDOMEN: Soft, nontender, nondistended. No organomegaly noted. EXTREMITIES: Show no clubbing, cyanosis or edema. Femoral and distal pulses are intact bilaterally. NEUROLOGIC: No focal deficits. SKIN: Warm, dry and intact. OSTEOPATHIC: No kyphoscoliosis or lordosis. LABORATORY DATA: Hemoglobin 14.5, hematocrit 44.2, platelets 156. Potassium 5.2, BUN 12, creatinine 0.94, magnesium 1.7. Troponin 0.11. Alcohol 213. Electrocardiogram (09/30/2018 at 11:41): Sinus rhythm, possible biatrial enlargement, left anterior fascicular block, anterior septal myocardial infarction of age indeterminate. IMPRESSION: 1. Syncope. 2. Atrial fibrillation with rapid ventricular response. 3. Nonischemic cardiomyopathy. 4. Alcohol abuse. 5. Hypoglycemia. 6. Minimally elevated troponin. RECOMMENDATIONS: 1. Mr. Valdivia presented after being found down on the road with a blood sugar of 21. Hypoglycemia may be perpetuated by his chronic alcohol abuse and not eating this morning. 2. He was found to be in atrial fibrillation with rapid ventricular response and started on a Cardizem drip. 3. I am unsure at this time whether he is taking his medications appropriately, as his digoxin level is 0.1. 4. I spoke to him about drinking with his current cardiomyopathy and how this is detrimental. 5. He has a minimally elevated troponin, but this is nonspecific at this current time, especially with his hypoglycemic level. He has a known nonischemic cardiomyopathy. We will continue his current medications. 6. He will continue on Xarelto for his atrial fibrillation. 7. Further recommendations will be made based on hospital course. Thank you for allowing me to see Satya Valdivia. If there are any questions, please do not hesitate to call. DO ADEN Glover/sasha , 07:27 PM , 07:40 PM
[2018-10-01] MEDS: Insulin NovoLOG Aspart Correctional Sugar Inj SQ SCH ×3 (03:20→12:02)
[2018-10-01] MEDS: Chlorhexidine Gluconate 2% 1 Pack (2 Cloths) TOPICAL SCH (03:21)
[2018-10-01 05:06] VITALS: RESP 16
[2018-10-01 06:40] LABS: Baso % (Auto) 0.3 % (0.0-2.0); Eos % (Auto) 0.8 % (0.0-4.0); Hematocrit 36.5 % (39.0-51.0); Hemoglobin 12.2 gm/dL (13.0-17.0); Lymph # (Auto) 2.3 th/mm3 (1.0-4.8); Lymph % (Auto) 42.2 % (9.0-44.0); Mean Corpuscular HGB Conc 33.3 % (32.0-36.0); Mean Corpuscular Hemoglobin 31.4 pg (27.0-34.0); Mean Corpuscular Volume 94.2 fL (80.0-100.0); Mean Platelet Volume 10.1 fL (7.0-11.0); Mono # (Auto) 0.8 th/mm3 (0.0-0.9); Mono % (Auto) 14.1 % (0.0-8.0); Neut # (Auto) 2.3 th/mm3 (1.8-7.7); Neut % (Auto) 42.6 % (16.0-70.0); Platelet Count 121 th/mm3 (150-450); Red Blood Count 3.88 mil/mm3 (4.50-5.90); Red Cell Distribution Width 14.6 % (11.6-17.2); White Blood Count 5.4 th/mm3 (4.0-11.0)
[2018-10-01 06:57] LABS: Albumin 2.8 g/dL (3.4-5.0); Anion Gap 9 meq/L (5-15); Aspartate Aminotransferase 50 U/L (15-37); Blood Urea Nitrogen 13 mg/dL (7-18); Calcium 7.6 mg/dL (8.5-10.1); Carbon Dioxide 20.5 meq/L (21.0-32.0); Chloride 115 meq/L (98-107); Glomerular Filtration Rate Greater Than 89 mL/min (>89); Glucose,Random 97 mg/dL (74-106); Potassium 4.5 meq/L (3.5-5.1); Sodium 144 meq/L (136-145)
[2018-10-01 07:02] LABS: Alanine Aminotransferase 36 U/L (12-78); Alkaline Phosphatase 53 U/L (45-117); Total Protein 5.9 g/dL (6.4-8.2)
--- NOTE | 2018-10-01 08:25 | P.PNFP ---
Subjective Interval history: Mr Valdivia had one run of Vtach on telemetry last night but was sleeping and asymptomatic. His AICD was interrogated this morning and is working [facility]. Dr Campuzano will see him this morning and determine if he can be discharged. There are no complaints of CP, N/V/D, or pain this morning; however, he states he is a little SOB. Strongly advised patient to cease alcohol intake as a means to improve his health and decrease his hospitalizations. Results - Labs Result diagrams: 10/01/18 05:58 10/01/18 05:58 Abnormal lab results 09/30/18 09/30/18 10/01/18 Range/Units 10:52 17:06 05:58 RBC 3.88 L (4.50-5.90) mil/mm3 Hgb 12.2 L D (13.0-17.0) gm/dL Hct 36.5 L (39.0-51.0) % Plt Count 121 L (150-450) th/mm3 [place] % (Auto) 14.1 H (0.0-8.0) % Chloride (98-107) meq/L Carbon Dioxide (21.0-32.0) meq/L POC Glucose 123 H (68-110) mg/dl Calcium (8.5-10.1) mg/dL Total Bilirubin (0.2-1.0) mg/dL AST (15-37) U/L Troponin I 0.11 H (0.02-0.05) ng/mL Total Protein (6.4-8.2) g/dL Albumin (3.4-5.0) g/dL 10/01/18 Range/Units 05:58 RBC (4.50-5.90) mil/mm3 Hgb (13.0-17.0) gm/dL Hct (39.0-51.0) % Plt Count (150-450) th/mm3 [place] % (Auto) (0.0-8.0) % Chloride 115 H (98-107) meq/L Carbon Dioxide 20.5 L (21.0-32.0) meq/L POC Glucose (68-110) mg/dl Calcium 7.6 L (8.5-10.1) mg/dL Total Bilirubin 2.3 H (0.2-1.0) mg/dL AST 50 H (15-37) U/L Troponin I (0.02-0.05) ng/mL Total Protein 5.9 L D (6.4-8.2) g/dL Albumin 2.8 L D (3.4-5.0) g/dL Short CBC 10/01/18 Range/Units 05:58 WBC 5.4 (4.0-11.0) th/mm3 Hgb 12.2 L D (13.0-17.0) gm/dL Hct 36.5 L (39.0-51.0) % Plt Count 121 L (150-450) th/mm3 BMP 10/01/18 10/01/18 05:58 05:58 Sodium 144 Potassium 4.5 Chloride 115 H Carbon Dioxide 20.5 L BUN 13 Creatinine 1.01 Calcium 7.6 L Cancelled Cardiac Enzymes 09/30/18 Range/Units 10:52 Troponin I 0.11 H (0.02-0.05) ng/mL Liver Function 10/01/18 10/01/18 Range/Units 05:58 05:58 Total Bilirubin 2.3 H (0.2-1.0) mg/dL AST 50 H (15-37) U/L ALT 36 (12-78) U/L Alkaline Phosphatase 53 (45-117) U/L Albumin 2.8 L D Cancelled (3.4-5.0) g/dL Physical Exam Vital signs: Vital Signs 09/30/18 08:15 09/30/18 08:30 09/30/18 08:45 Temperature Pulse Rate 87 89 72 Respiratory Rate 33 H 32 H 26 H Blood Pressure 96/69 L 103/75 99/63 L Pulse Oximetry 97 99 98 09/30/18 09:00 09/30/18 09:15 09/30/18 09:30 Temperature Pulse Rate 74 81 75 Respiratory Rate 16 26 H 21 Blood Pressure 95/56 L 94/58 L 91/55 L Pulse Oximetry 100 100 100 09/30/18 09:45 09/30/18 10:00 09/30/18 10:15 Temperature Pulse Rate 81 75 78 Respiratory Rate 18 18 17 Blood Pressure 89/56 L 93/59 L 93/61 L Pulse Oximetry 99 98 98 09/30/18 10:30 09/30/18 10:45 12/26/18 11:00 Temperature Pulse Rate 79 75 75 Respiratory Rate 19 17 19 Blood Pressure 95/65 L 96/65 L 94/65 L Pulse Oximetry 99 100 100 09/30/18 11:15 09/30/18 11:30 09/30/18 11:45 Temperature Pulse Rate 78 74 79 Respiratory Rate 19 17 20 Blood Pressure 95/64 L 94/63 L 95/66 L Pulse Oximetry 100 100 100 09/30/18 12:00 09/30/18 12:15 09/30/18 12:30 Temperature 98.4 F Pulse Rate 81 77 78 Respiratory Rate 18 18 17 Blood Pressure 97/68 L 97/67 L 100/73 Pulse Oximetry 100 99 100 09/30/18 12:45 09/30/18 13:00 09/30/18 14:00 Temperature 98.4 F Pulse Rate 83 85 75 Respiratory Rate 29 H 29 H 16 Blood Pressure 88/62 L 103/68 96/74 L Pulse Oximetry 100 96 98 09/30/18 16:00 09/30/18 17:54 09/30/18 19:00 Temperature 98.1 F 98.5 F Pulse Rate 84 86 89 Respiratory Rate 16 16 Blood Pressure 95/73 L 99/65 L Pulse Oximetry 98 97 09/30/18 20:00 09/30/18 21:00 09/30/18 22:00 Temperature Pulse Rate 82 80 76 Respiratory Rate Blood Pressure Pulse Oximetry 09/30/18 23:00 10/01/18 00:00 10/01/18 01:00 Temperature 98.3 F Pulse Rate 68 64 60 Respiratory Rate 18 Blood Pressure 92/66 L Pulse Oximetry 98 10/01/18 02:00 10/01/18 03:00 10/01/18 04:00 Temperature 98.8 F Pulse Rate 62 69 64 Respiratory Rate 16 Blood Pressure 101/75 Pulse Oximetry 98 10/01/18 05:00 10/01/18 06:00 10/01/18 07:00 Temperature Pulse Rate 68 77 77 Respiratory Rate Blood Pressure Pulse Oximetry Intake & Output 09/30/18 10/01/18 10/01/18 18:59 06:59 18:59 Intake Total 1480 / 1480 1240 / 1240 Output Total 200 / 200 250 / 250 Balance 1280 / 1280 990 / 990 Weight 47.4 kg Intake: IV 1000 / 1000 1000 / 1000 NS Inj 1,000 ML @ 100 mls/hr IV 1000 / 1000 1000 / 1000 .CONT .Q10H CALEB Rx#:[id number] Oral 480 / 480 240 / 240 Output: Urine 200 / 200 250 / 250 Narrative: GENERAL: 43 YO Af-Am male who appears thin and hard of hearing, lying in bed. SKIN: Warm and dry. No lesions or rash. HEAD: Normocephalic. Atraumatic. MMM. EOMI. EYES: No scleral icterus; muddy sclera bilaterally. No injection or drainage. NECK: Supple, trachea midline. No JVD. CARDIOVASCULAR: Regular rate and rhythm without murmurs, gallops, or rubs. 2+ peripheral pulses. RESPIRATORY: Breath sounds equal bilaterally. No accessory muscle use. No increased WOB on RA. GASTROINTESTINAL: Abdomen soft, non-tender, nondistended. +BS. MUSCULOSKELETAL: No cyanosis, or edema. No calf tenderness bilaterally. Assessment and Plan - Assessment (1) Atrial fibrillation with RVR Code(s): I48.91 - Unspecified atrial fibrillation Status: Acute (2) Non-ischemic cardiomyopathy Code(s): I42.8 - Other cardiomyopathies Status: Acute (3) Hypoglycemia Code(s): E16.2 - Hypoglycemia, unspecified Status: Acute (4) Alcohol abuse Code(s): F10.10 - Alcohol abuse, uncomplicated Status: Acute (5) Liver cirrhosis Code(s): K74.60 - Unspecified cirrhosis of liver Status: Acute (6) Nutrition, metabolism, and development symptoms Code(s): R63.8 - Other symptoms and signs concerning food and fluid intake Status: Acute - Assessment and Plan 43 YO male w/PMHx non-ischemic cardiomyopathy likely 2/2 chronic EtOH abuse with last ECHO 10/10/17 showing LVEF 20%, VA s/p AICD found down on the road and noted to be hypoglycemic and with AFib/RVR in ED. Pt has been started on Cardizem gtt and admitted for rate control, EtOH withdrawal, hyperkalemia 5.2, hypoglycemia and Hx of noncompliance. DDx: AFib RVR 2/2 worsening cardiomyopathy from EtOH; infection; hypoglycemia 2/2 alcohol use. Afib RVR with rate in the 110-120s, likely 2/2 chronic EtOH abuse and/or noncompliance with medication regimen -Discontinued Diltiazem gtt; resumed patient's home medications of carvedilol, digoxin, Xarelto; holding Lasix, isosorbide mononitrate for low bp @ 101/75 this morning -Cardiology consult--appreciate recs -Tele -Supplemental O2, titrate as needed--O2 sats 98% on RA -Troponin trend: 0.06, 0.11 -EKGs showing right and left atrial enlargement, RV conduction delay, left fascicular block, and old anteroseptal infarction -ASA 162 mg daily -Digoxin level subtherapeutic at 0.1 on admit VTach -Has had two runs of Vtach </= 10 seconds during hospitalization -Both times pt asymptomatic -Pt advised by Cardiology and primary team to cease EtOH use and be compliant on medications -Plan as above Non-ischemic cardiomyopathy with CHF -BNP 504; appears close to baseline -Hold Lasix, isosorbide mononitrate due to low BPs EtOH withdrawal -Serum EtOH 213 on admission -AST 50/ALT 36 -CIWA protocol ordered; asymptomatic overnight -Vitamins (thiamine, folate, MV) -IVF -Clonidine 0.1 mg q6h PRN for hypertension Hyperkalemia - resolved -Continue to monitor Hypoglycemia - resolved/now hyperglycemic to 221 - 2/2 EtOH use -Glucagon 1 mg in ED once -NS 100 mls/hr -A1C in Oct 2017 5.7 -Low SSI Hyperbilirubinemia - TBili 2.3 with normal LFTs -Hepatitis panel FEN/GI/PPx: Fluids: PO fluids Electrolytes: wnl today Nutrition: Cardiac diet with sodium restriction <2000mg daily GI: Protonix 40 mg daily PPx: SCDs; will resume Xarelto tonight after discontinuation of Diltiazem Dispo: likely today if cleared by Cardiology Pt DW Drs. Toledo and Justen
[2018-10-01] MEDS: Digoxin 250 MCG Tablet PO SCH (09:16)
[2018-10-01] MEDS: Senna/Docusate Sodium 8.6/50 MG Tablet PO SCH (09:16)
[2018-10-01] MEDS: Carvedilol 12.5 MG Tablet PO SCH (09:16)
[2018-10-01] MEDS: Folic Acid 1 MG Tablet PO SCH (09:16)
[2018-10-01] MEDS: Multivitamin/Minerals Therapeutic Tablet PO SCH (09:16)
[2018-10-01] MEDS: Furosemide 40 MG Tablet PO SCH (09:20)
[2018-10-01] MEDS: Sod Chloride 0.9% Inj 1,000 ML IV.CONT SCH (09:21)
[2018-10-01 12:40] VITALS: PULSE 74
[2018-10-01 12:44] VITALS: BP 100/73; TEMP 98.6; O2SAT 94
--- NOTE | 2018-10-01 19:41 | P.PNCA ---
Subjective Interval history: No events overnight Sleeping in bed, awakes to questions Interrogation showing normal function Some 1:1 SVT Telemetry with wide complex tachycardia Asymptomatic Possible 1:1 SVT Medications and Allergies Allergies Allergy/AdvReac Type Severity Reaction Status Date / Time Fish Containing Products Allergy Severe itching Verified 09/29/18 22:09 iodine Allergy Severe itching Verified 09/29/18 22:09 potassium iodide Allergy Severe itching Verified 09/29/18 22:09 povidone-iodine Allergy Severe itching Verified 09/29/18 22:09 sodium iodide Allergy Severe itching Verified 09/29/18 22:09 Home Medications Medication Instructions Recorded Confirmed Type carvedilol 12.5 mg PO BID 08/23/18 09/30/18 History digoxin 0.25 mg PO DAILY 08/23/18 09/30/18 History furosemide [Lasix] 40 mg PO BID 08/23/18 09/30/18 History isosorbide mononitrate 30 mg PO DAILY 08/23/18 09/30/18 History mirtazapine 30 mg PO HS 08/23/18 09/30/18 History potassium chloride 20 meq PO DAILY 08/23/18 09/30/18 History quetiapine [Seroquel] 100 mg PO HS 08/23/18 09/30/18 History rivaroxaban [Xarelto] 20 mg PO QPM 08/23/18 09/30/18 History omeprazole 20 mg PO DAILY 09/30/18 09/30/18 History Physical Exam Vital signs: Vital Signs 09/30/18 20:00 09/30/18 21:00 09/30/18 22:00 Temperature Pulse Rate 82 80 76 Respiratory Rate Blood Pressure Pulse Oximetry 09/30/18 23:00 10/01/18 00:00 10/01/18 01:00 Temperature 98.3 F Pulse Rate 68 64 60 Respiratory Rate 18 Blood Pressure 92/66 L Pulse Oximetry 98 10/01/18 02:00 10/01/18 03:00 10/01/18 04:00 Temperature 98.8 F Pulse Rate 62 69 64 Respiratory Rate 16 Blood Pressure 101/75 Pulse Oximetry 98 10/01/18 05:00 10/01/18 06:00 10/01/18 07:00 Temperature 97.8 F Pulse Rate 68 77 79 Respiratory Rate 16 Blood Pressure 113/79 Pulse Oximetry 95 10/01/18 08:00 10/01/18 09:00 10/01/18 10:00 Temperature Pulse Rate 80 86 76 Respiratory Rate Blood Pressure Pulse Oximetry 95 10/01/18 11:00 10/01/18 12:00 Temperature 98.6 F Pulse Rate 80 74 Respiratory Rate 16 Blood Pressure 100/73 Pulse Oximetry 94 L Intake & Output 10/01/18 10/01/18 10/02/18 06:59 18:59 06:59 Intake Total 1240 / 1240 1000 / 1000 Output Total 250 / 250 Balance 990 / 990 1000 / 1000 Weight 47.4 kg Intake: IV 1000 / 1000 1000 / 1000 NS Inj 1,000 ML @ 100 mls/hr IV 1000 / 1000 1000 / 1000 .CONT .Q10H CALEB Rx#:[id number] Oral 240 / 240 Output: Urine 250 / 250 Other: Date of Last Bowel Movement 09/30/18 Narrative: GENERAL: 43 YO Af-Am male who appears thin and hard of hearing, lying in bed. SKIN: Warm and dry. No lesions or rash. HEAD: Normocephalic. Atraumatic. MMM. EOMI. EYES: No scleral icterus; muddy sclera bilaterally. No injection or drainage. NECK: Supple, trachea midline. No JVD. CARDIOVASCULAR: Regular rate and rhythm without murmurs, gallops, or rubs. 2+ peripheral pulses. RESPIRATORY: Breath sounds equal bilaterally. No accessory muscle use. No increased WOB on RA. GASTROINTESTINAL: Abdomen soft, non-tender, nondistended. +BS. MUSCULOSKELETAL: No cyanosis, or edema. No calf tenderness bilaterally. Results 10/01/18 05:58 10/01/18 05:58 Cardiac Enzymes 09/29/18 09/29/18 09/30/18 Range/Units 22:45 22:45 05:02 AST 155 H (15-37) U/L CK-MB (CK-2) 4.8 H (0.5-3.6) ng/mL Troponin I 0.06 H 0.11 H (0.02-0.05) ng/mL B-Natriuretic Peptide 504 H (0-100) pg/mL 09/30/18 10/01/18 Range/Units 10:52 05:58 AST 50 H (15-37) U/L CK-MB (CK-2) (0.5-3.6) ng/mL Troponin I 0.11 H (0.02-0.05) ng/mL B-Natriuretic Peptide (0-100) pg/mL Coagulation 09/29/18 09/29/18 Range/Units 22:45 23:40 PT 11.4 (9.8-11.6) sec APTT 24.7 (23.4-31.7) sec B-Natriuretic Peptide 504 H (0-100) pg/mL CBC 09/29/18 10/01/18 Range/Units 22:45 05:58 WBC 4.7 5.4 (4.0-11.0) th/mm3 RBC 4.63 3.88 L (4.50-5.90) mil/mm3 Hgb 14.5 12.2 L D (13.0-17.0) gm/dL Hct 44.2 36.5 L (39.0-51.0) % Plt Count 156 121 L (150-450) th/mm3 Neut # (Auto) 3.6 2.3 (1.8-7.7) th/mm3 Lymph # (Auto) 0.9 L 2.3 (1.0-4.8) th/mm3 [place] # (Auto) 0.1 0.8 (0.0-0.9) th/mm3 Eos # (Auto) 0.0 0.0 (0.0-0.4) th/mm3 Baso # (Auto) 0.0 0.0 (0.0-0.2) th/mm3 Comprehensive Metabolic Panel 09/29/18 10/01/18 10/01/18 Range/Units 22:45 05:58 05:58 Sodium 137 144 (136-145) meq/L Potassium 5.2 H 4.5 (3.5-5.1) meq/L Chloride 110 H 115 H (98-107) meq/L Carbon Dioxide 12.2 L 20.5 L (21.0-32.0) meq/L BUN 12 13 (7-18) mg/dL Creatinine 0.94 1.01 (0.60-1.30) mg/dL Calcium 7.8 L 7.6 L Cancelled (8.5-10.1) mg/dL AST 155 H 50 H (15-37) U/L ALT 62 36 (12-78) U/L Alkaline Phosphatase 66 53 (45-117) U/L Total Protein 7.6 5.9 L D (6.4-8.2) g/dL Albumin 3.5 2.8 L D Cancelled (3.4-5.0) g/dL Intake and Output 10/01/18 10/01/18 10/01/18 06:59 14:59 22:59 Intake Total 240 / 240 1000 / 1000 Output Total 250 / 250 Balance -10 / -10 1000 / 1000 Intake: IV 1000 / 1000 NS Inj 1,000 ML @ 100 mls/hr IV 1000 / 1000 .CONT .Q10H CALEB Rx#:[id number] Oral 240 / 240 Output: Urine 250 / 250 Other: Date of Last Bowel Movement 09/30/18 Weight 47.4 kg - Imaging and Cardiology Imaging: Impressions Chest X-Ray 09/29/18 22:12 CONCLUSION: 1. Cardiomegaly. 2. No acute focal pulmonary infiltrate or pulmonary vascular congestion. Head CT 09/29/18 22:12 CONCLUSION: 1. Redemonstration of moderate diffuse cerebral atrophy out of proportion for age. 2. No acute intracranial abnormality or significant interval change. . Assessment and Plan - Assessment (1) Alcohol abuse Code(s): F10.10 - Alcohol abuse, uncomplicated Status: Acute (2) Atrial fibrillation with RVR Code(s): I48.91 - Unspecified atrial fibrillation Status: Acute (3) Elevated troponin Code(s): R74.8 - Abnormal levels of other serum enzymes Status: Acute (4) Generalized weakness Code(s): R53.1 - Weakness Status: Acute (5) Hypoglycemia Code(s): E16.2 - Hypoglycemia, unspecified Status: Acute (6) Non-compliance Code(s): Z91.19 - Patient's noncompliance with other medical treatment and regimen Status: Acute (7) Non-ischemic cardiomyopathy Code(s): I42.8 - Other cardiomyopathies Status: Acute - Plan 1. Syncope. Secondary to hypoglycemia No ICD discharges 2. Atrial fibrillation with rapid ventricular response. Suspect patient is not taking his medications as Dig level 0.1 Con't Xarelto 3. Nonischemic cardiomyopathy. 4. Alcohol abuse. ETOH cessation 5. Hypoglycemia. 6. Minimally elevated troponin. Non-specific with hypoglycemic event and passing out 7. Wide complex tachycardia Most likely SVT 1:1 as seen on interrogation Con't medical management Unable to increase meds with borderline hypotension and unsure if he's taking them 8. No further cardiovascular work up Needs to stop ETOH Needs to take medications Cardiovascularly stable for discharge
--- NOTE | 2018-10-01 19:50 | ECG ---
Date Performed: 09/30/2018 Time Performed: 15:37:40 PTAGE: 43 years EKG: Sinus rhythm Possible left atrial abnormality Left anterior fascicular block Possible anteroseptal infarct - age undetermined Possible left ventricular hypertrophy Lateral T wave changes are probably due to ventric ular hypertrophy Since the previous tracing, no significant change noted Abnormal ECG PREVIOUS TRACING : 09/30/2018 11.41 DOCTOR: Richa Galarza Interpretating Date/Time 10/01/2018 19:48:18
--- NOTE | 2018-10-02 14:18 | P.DS ---
Date of admission: 09/30/18 01:53 Primary care physician: UNKNOWN Brief History from admission: Mr Valdivia is a 43 year old male w/PMHx non-ischemic cardiomyopathy, cirrhosis, DVT, gastric ulcer, and pulmonary emboli presents to the ED by ambulance after being found down on the road. After being brought to the ED via [facility] he was found to be hypoglycemic but denies history of DM. History is limited due to patient being a poor historian and being hard of hearing. Patient states his pacemaker shocked him. This is the second time the pacemaker shocked him. He states he did not eat any breakfast and then took his medications and doesn't recall anything after that. He states that when he doesn't eat he sometimes gets weak and dehydrated. He feels very weak, dehydrated and thirsty now. He complains of some SOB. He denies any vomiting or nausea. He has been thirsty. Denies any fever or chills. He took his medications today (13 different pills), but does not recall what any of them are. He believes maybe his pills caused his problem today. He says he did drink water and orange juice today. His physician is Bernadette Santillan and he gets his medication from [facility] on [facility]. 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 He lives [address] [facility]. Patient denies any depression or anxiety. PMHx: Non-ischemic cardiomyopathy, cirrhosis of liver, DVT (deep venous thrombosis), gastric ulcer, pulmonary emboli SurgHx: AICD FMHx: denies Allergies: Iodine SocialHx: 2-3 16 oz beers daily, no tobacco use DS: Summary Hospital Course: YO male w/PMHx non-ischemic cardiomyopathy likely 2/2 chronic EtOH abuse with last ECHO 10/10/17 showing LVEF 20%, UT s/p AICD found down on the road and noted to be hypoglycemic (BS 20) and with AFib/RVR in ED. Pt has been started on Cardizem gtt and admitted for rate control, EtOH withdrawal, hyperkalemia 5.2, hypoglycemia and Hx of noncompliance. Pt's alcohol level on admission was 213, although pt states he only drank two beers [id number]/ [id number], pt was placed on CIWA protocol. Pt's compliance with medication is also questionable as his digoxin levels were low. Cardiology was consulted whom believed his A fib with RVR was likely related to medication no compliance as well. Pt had elevated troponins that were considered non specific given the passing out and hypoglycemia. His hypoglycemia was resolved after receiving glucagon in the ED and IV fluids. Pt was strongly encourage to cease alcohol intake by several physicians during this hospitalization. He was counseled of the poor prognosis if he continues to drink alcohol. - Time Spent with Patient Total time spent providing and/or coordinating discharge services: Less than 30 minutes - Quality: VTE Deep Vein Thrombosis/Pulmonary Embolism Present on Admission: No Exam Vital signs: Intake & Output 10/01/18 10/02/18 10/02/18 18:59 06:59 18:59 Intake Total 1000 / 1000 Balance 1000 / 1000 Intake: IV 1000 / 1000 NS Inj 1,000 ML @ 100 mls/hr IV 1000 / 1000 .CONT .Q10H CALEB Rx#:[id number] Other: Date of Last Bowel Movement 09/30/18 Narrative: GENERAL: 43 YO Af-Am male who appears thin and hard of hearing, lying in bed. SKIN: Warm and dry. No lesions or rash. HEAD: Normocephalic. Atraumatic. MMM. EOMI. EYES: No scleral icterus; muddy sclera bilaterally. No injection or drainage. NECK: Supple, trachea midline. No JVD. CARDIOVASCULAR: Regular rate and rhythm without murmurs, gallops, or rubs. 2+ peripheral pulses. RESPIRATORY: Breath sounds equal bilaterally. No accessory muscle use. No increased WOB on RA. GASTROINTESTINAL: Abdomen soft, non-tender, nondistended. +BS. MUSCULOSKELETAL: No cyanosis, or edema. No calf tenderness bilaterally. Results Procedures completed during hospitalization: none - Impressions ITS Impressions Chest X-Ray 09/29/18 22:12 CONCLUSION: 1. Cardiomegaly. 2. No acute focal pulmonary infiltrate or pulmonary vascular congestion. Head CT 09/29/18 22:12 CONCLUSION: 1. Redemonstration of moderate diffuse cerebral atrophy out of proportion for age. 2. No acute intracranial abnormality or significant interval change. . Discharge Plan - Discharge Disposition Patient Disposition: 01 Discharge Home - Discharge Condition Condition: Stable - Discharge Order Discharge Orders: Discharge Order (Routine); Ordered 10/01/18 Ordered By: Jesus Manuel Quick III R2 - Discharge Details Anticipated Discharge Date: 10/01/18 Discharge Comment: Cleared for discharge per Dr Campuzano - Physicians Team Primary Care Provider: UNKNOWN, Attending Provider: Vipul Toledo Other Providers: Sylvester Campuzano DO
== END 2018-10-01 13:44 | disposition home or self-care (01) | DRG 309 ==
LOC: NEPC 22:03 → INTOOBSV 09-30 00:15 → NEDA 09-30 00:15 → HIMC 09-30 03:15 → HCIS 09-30 13:28
PROVIDERS: ADMIT Family Medicine; ATTEND Family Medicine
CPT/HCPCS: 70450; 71010; 71045; 80053; 80162; 80307; 82040; 82550; 82552; 82948; 82962; 83036; 83520; 83690; 83735; 83880; 84484; 85025; 85610; 85730; 87641; 90772; 90782; 93005; 96372; 99285; J1610; J1815; J2405; J7030